=== PATIENT | female | born 1955 | race Caucasian/White ===

== ENCOUNTER → 2016-06-19 | Outpatient (CLI) | payer BC, OTHER ==
--- NOTE | 2016-06-19 14:22 | XR ---
EXAMINATION TYPE: XR wrist complete BILATERAL DATE OF EXAM: 06/19/2016 2:14 PM COMPARISON: NONE HISTORY: Palpable abnormality TECHNIQUE: Four views submitted of each wrist. FINDINGS: The osseous structures are intact. The joint spaces are preserved and there is no acute fracture or dislocation. Sclerosis involving the base of the lunate bone on the left. IMPRESSION: 1. No definite acute osseous abnormality. There is sclerosis involving the base of the left lunate b one. This can occasionally be seen with arthritic change or early osteonecrosis. Correlate clinically .
--- NOTE | 2016-06-19 15:22 | MR ---
EXAMINATION TYPE: MR lumbar spine wo con DATE OF EXAM: 06/19/2016 3:14 PM COMPARISON: 12/07/2015 HISTORY: 61-year-old female with left Hip and Lumbar Pain TECHNIQUE: Multiplanar, multisequence images of the lumbar spine were acquired. FINDINGS: Vertebral body heights are preserved and alignment is maintained. No suspicious bone marrow replacement. Conus medullaris is normal. Numerous calculi within a nondistended gallbladder. Intervertebral discs are degenerated with mild desiccation, minimal disc interspace narrowing, and bu lging throughout. Ligamentum flavum thickening and facet arthropathy mid to lower lumbar spine. At T12-L1, no spinal canal or neuroforaminal stenosis. At L1-L2, no spinal canal or foraminal stenosis. At L2-L3, very mild disc bulge and facet degenerative change. Minimal bilateral inferior foraminal na rrowing without spinal canal stenosis. At L3-L4, mild facet degenerative change and mild lateral disc bulging. Minimal bilateral inferior ne uroforaminal narrowing without spinal canal stenosis. At L4-L5, mild diffuse disc bulge with ligamentum flavum thickening and facet arthropathy. While ther e is impression on the thecal sac, no significant spinal canal stenosis is seen. There is mild bilate ral neuroforaminal stenosis not significantly changed from prior. At L5-S1, is disc bulge with hypertrophic facet arthropathy, particularly on the left. No significant spinal canal stenosis. Mild bilateral neuroforaminal stenoses. Disc material may abut the exiting L5 nerve roots, particularly on the right. These changes are not significantly changed. No prevertebral or paravertebral soft tissue abnormality. IMPRESSION: 1. Mild to moderate multilevel degenerative disc disease. Additional ligamentum flavum thickening and facet arthropathy in the mid to lower lumbar spine. Asymmetric marked hypertrophic left-sided facet arthropathy at L5-S1. Overall changes are relatively similar to 12/07/2015. 2. Mild bilateral neuroforaminal stenoses at L4-L5 and L5-S1. 3. No canal compromise. 4. Cholelithiasis.
== END | disposition home or self-care (01) ==
LOC: RADMRIMAIN 13:57
PROVIDERS: ATTEND Psychiatry & Neurology Pain Medicine
DX: M89.8X8 Other specified disorders of bone, other site (principal); M51.36 Other intervertebral disc degeneration, lumbar region; M99.73 Connective tissue and disc stenosis of intervertebral foramina of lumbar region; M99.74 Connective tissue and disc stenosis of intervertebral foramina of sacral region; M46.97 Unspecified inflammatory spondylopathy, lumbosacral region; M24.28 Disorder of ligament, vertebrae; M54.5 Low back pain
CPT/HCPCS: 72148

== ENCOUNTER → 2016-09-16 | Outpatient (CLI) | payer BC, OTHER ==
[2016-09-16 13:14] LABS: Blood Urea Nitrogen 15 mg/dL (7-17); Non-African American GFR(MDRD) >60 (>60 ml/min/1.73 sqM)
== END | disposition home or self-care (01) ==
LOC: LABWHC1 12:05
PROVIDERS: ATTEND Psychiatry & Neurology Pain Medicine
DX: R51 Headache (principal)
CPT/HCPCS: 36415; 82565; 84520

== ENCOUNTER → 2016-09-17 | Outpatient (CLI) | payer BC, OTHER ==
--- NOTE | 2016-09-17 09:36 | MR ---
EXAMINATION TYPE: MR brain wo/w con DATE OF EXAM: 09/17/2016 COMPARISON: NONE HISTORY: Headaches TECHNIQUE: Multiplanar, multisequence images of the brain and brainstem is performed without and with IV contras t, utilizing 15 mL intravenous MultiHance . FINDINGS: Diffusion weighted images demonstrate no evidence of a recent infarct or other diffusion ab normality. Her graft and signal note made of a venous angioma in the right frontal lobe. There are ch anges of chronic sinusitis. Craniocervical junction maintained. Sella turcica has a normal appearance. Changes of chronic left ma stoiditis. Cystic changes involving the tip of the odontoid noted are stable from MRI of the cervical spine dated 12/02/2013. WHITE MATTER: There are a few scattered areas of abnormal signal in the white matter totaling a number of 25. All m easure less than 5 mm. No enhancing lesions. No lesions perpendicular ventricular system. No callosal lesions. IMPRESSION: 1. Nonspecific white matter changes as discussed above. Differential diagnosis includes remote microv ascular ischemia and demyelinating process. Lyme's disease, hypertension, sarcoidosis or vasculitis a lso in the differential diagnosis. 2. Chronic sinusitis and mastoiditis as discussed above.
== END | disposition home or self-care (01) ==
LOC: RADMRIMAIN 08:09
PROVIDERS: ATTEND Psychiatry & Neurology Pain Medicine
DX: R90.89 Other abnormal findings on diagnostic imaging of central nervous system (principal); R51 Headache
CPT/HCPCS: 70553; A9577

== ENCOUNTER → 2017-04-24 | Outpatient (CLI) | payer OTHER ==
--- NOTE | 2017-04-27 10:55 | MM ---
Reason for exam: screening (asymptomatic). History: Patient is postmenopausal and history of other cancer. Family history of breast cancer in aunt. Benign excisional biopsy of the right breast, 1996. Physical Findings: A clinical breast exam by your physician is recommended on an annual basis and results should be correlated with mammographic findings. MG 3D Screening Mammo W/Cad Bilateral CC and MLO view(s) were taken. No prior studies available for comparison. Focal asymmetry left anterior upper outer quadrant. ASSESSMENT: Incomplete: need additional imaging evaluation, BI-RAD 0 RECOMMENDATION: Ultrasound of the left breast. [facility] will attempt to contact patient to return for ultrasound.
== END ==
LOC: RADMAMWWP 10:39
PROVIDERS: ATTEND Family Medicine
DX: Z12.31 Encounter for screening mammogram for malignant neoplasm of breast (principal)
CPT/HCPCS: 77063; 77067

== ENCOUNTER → 2017-05-05 | Outpatient (CLI) | payer OTHER ==
--- NOTE | 2017-05-05 09:05 | USB ---
Reason for exam: additional evaluation requested from abnormal screening. History: Patient is postmenopausal and history of other cancer. Family history of breast cancer in aunt. Benign excisional biopsy of the right breast, 1996. Physical Findings: Nurse Summary: left breast larger than right per patient "recently noticed" (nurse cw). US Breast Workup Limited LT Left breast ultrasound demonstrates no cystic or solid lesion seen. No sonographic abnormality, follow up in 6 months, left diagnostic mammogram recommended regarding left focal asymmetry. These results were verbally communicated with the patient and result sheet given to the patient on 05/05/17. ASSESSMENT: Probably benign, BI-RAD 3 RECOMMENDATION: Follow-up diagnostic mammogram of the left breast in 6 months.
== END | disposition home or self-care (01) ==
LOC: RADUSWWP 08:02
PROVIDERS: ATTEND Family Medicine
DX: R92.8 Other abnormal and inconclusive findings on diagnostic imaging of breast (principal)

== ENCOUNTER → 2017-12-03 | Outpatient (CLI) | payer OTHER ==
--- NOTE | 2017-12-03 12:28 | MM ---
Reason for exam: follow-up at short interval from prior study. Last mammogram was performed 7 months ago. History: Patient is postmenopausal and history of other cancer. Family history of breast cancer in aunt. Benign excisional biopsy of the right breast, 1996. Physical Findings: Nurse did not find any significant physical abnormalities on exam. MG 3D Diag Mammo W/Cad ANITRA Bilateral CC and MLO view(s) were taken. Prior study comparison: April 24, 2017, bilateral MG 3d screening mammo w/cad. The breast tissue is heterogeneously dense. This may lower the sensitivity of mammography. Stable dense tissue superior anterior left breast. Additional short interval follow up recommended. No significant change in the right breast. This can be used as the patients new annual date. These results were verbally communicated with the patient and result sheet given to the patient on 12/03/17. ASSESSMENT: Probably benign, BI-RAD 3 RECOMMENDATION: Follow-up diagnostic mammogram of the left breast in 6 months.
== END | disposition home or self-care (01) ==
LOC: RADMAMWWP 10:34
PROVIDERS: ATTEND Family Medicine
DX: R92.8 Other abnormal and inconclusive findings on diagnostic imaging of breast (principal)
CPT/HCPCS: 77066; G0279; 77062

== ENCOUNTER → 2017-12-25 | Outpatient (CLI) | payer OTHER ==
[2017-12-25 10:41] LABS: Albumin 4.2 g/dL (3.5-5.0); Calcium 9.5 mg/dL (8.4-10.2); Total Bilirubin 0.6 mg/dL (0.2-1.3); Total Protein 7.2 g/dL (6.3-8.2)
[2017-12-25 11:21] LABS: Appearance,Urine Clear (Clear); Bilirubin,Urine Negative (Negative); Blood,Urine Negative (Negative); Color,Urine Yellow; Creatinine,Urine Random 192.6 mg/dL; Glucose,Urine (UA) Negative (Negative); Ketones,Urine Negative (Negative); Leukocyte Esterase,Urine Trace (Negative); Mucus,Urine Rare /hpf; Nitrite,Urine Negative (Negative); Protein,Urine Negative (Negative); Specific Gravity,Urine 1.016 (1.001-1.035); Squamous Epithelial Cell,Urine 3 /hpf (0-4); Urobilinogen,Urine <2.0 mg/dL (<2.0); WBC,Urine 1 /hpf (0-5)
== END | disposition home or self-care (01) ==
LOC: LABWHC1 09:17
PROVIDERS: ATTEND Nurse Practitioner Adult Health
DX: E78.5 Hyperlipidemia, unspecified (principal); N17.9 Acute kidney failure, unspecified; N39.0 Urinary tract infection, site not specified; R80.9 Proteinuria, unspecified
CPT/HCPCS: 36415; 80053; 80061; 81001; 82570; 84156

== ENCOUNTER 2018-02-02 08:50 | Emergency (ER) | payer OTHER ==
--- NOTE | 2018-02-02 09:22 | ED ---
General Adult HPI - General Chief complaint: Fall Stated complaint: head injury Time Seen by Provider: 02/02/18 09:11 Source: patient, RN notes reviewed Mode of arrival: ambulatory Limitations: no limitations - History of Present Illness Initial comments: Patient 62-year-old female presenting to the emergency room today with a chief complaint of a fall that occurred just prior to arrival. She states she was letting her dog out this morning when she tripped on something falling forward. She states she did get her hand out to try to catch herself. She does admit that she is having pain to left side of her head. States she did hit there is a small cut and bruising. Patient states she does not believe she lost consciousness. She states she is on a baby aspirin. No other blood thinners. Patient does admit to history of chronic neck and back pain. Does admit that the neck seems to be worse after this fall. States back feels the same. States she did bruise up her left knee but it feels fine otherwise. She denies any other complaints or symptoms currently. Patient denies any recent fever, chills, shortness of breath, chest pain, abdominal pain, nausea or vomiting, numbness or tingling, visual changes, or any other complaints. - Related Data Home Medications Medication Instructions Recorded Confirmed Pravastatin Sodium [Pravachol] 20 mg PO HS 06/05/14 10/15/15 Sertraline [Zoloft] 125 mg PO DAILY 06/05/14 10/15/15 Ascorbic Acid [Vitamin C] 250 mg PO DAILY 06/07/14 10/15/15 Citracal+D3 (400-500) 1 tab PO DAILY 06/07/14 10/15/15 Hair/Skin/Nails 1 cap PO DAILY 06/07/14 10/15/15 Vitamin E (Dl,Tocopheryl Acet) 400 unit PO DAILY 06/07/14 10/15/15 [Vitamin E] Aspirin EC [Ecotrin Low Dose] 81 mg PO DAILY 09/19/15 10/15/15 Cyclobenzaprine [Flexeril] 10 mg PO TID PRN 09/19/15 10/15/15 Fexofenadine HCl [Rolanda Allergy] 180 mg PO DAILY PRN 09/19/15 10/15/15 Ubidecarenone [Co Q-10] 200 mg PO DAILY 09/19/15 10/15/15 oxyCODONE HCL/ACETAMINOPHEN 1 tab PO BID 09/19/15 10/15/15 [Percocet 7.5-325 mg] Krill Oil 350 mg PO DAILY 10/08/15 10/15/15 Metoprolol Tartrate [Lopressor] 12.5 mg PO BID 10/08/15 10/15/15 Allergies Allergy/AdvReac Type Severity Reaction Status Date / Time NSAIDS (Non-Steroidal AdvReac PROBLEMS Verified 10/08/15 12:18 Anti-Inflamma URINATING Review of Systems ROS Statement: Those systems with pertinent positive or pertinent negative responses have been documented in the HPI. ROS Other: All systems not noted in ROS Statement are negative. Past Medical History Past Medical History: Cancer, Chest Pain / Angina, Eye Disorder, Hyperlipidemia , Musculoskeletal Disorder Additional Past Medical History / Comment(s): PM SINCE 2006. LUMBAR, CERVICAL DDD. PALPITATIONS. 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 MIGRAINES. VARICOSE VEINS. History of Any Multi-Drug Resistant Organisms: None Reported Past Surgical History: Orthopedic Surgery Additional Past Surgical History / Comment(s): Biopsy for Lymphoma. Vaginal Polyp EXC. Rt Shoulder sx x2, Rt Knee Arthroscopy, ORIF RT Ankle-has plate/ screws. Past Anesthesia/Blood Transfusion Reactions: No Reported Reaction Past Psychological History: Anxiety Smoking Status: Current every day smoker Past Alcohol Use History: None Reported Past Drug Use History: None Reported - Past Family History Mother Family Medical History: COPD, Coronary Artery Disease (CAD), Myocardial Infarction (VT), Seizure Disorder Father Family Medical History: Coronary Artery Disease (CAD), Seizure Disorder General Exam - General Exam Comments Initial Comments: General: The patient is awake and alert. Patient currently in cervical collar. Eye: Pupils are equal, round and reactive to light, extra-ocular movements are intact. No nystagmus. There is normal conjunctiva bilaterally. No signs of icterus. Ears, nose, mouth and throat: There are moist mucous membranes and no oral lesions. Neck: The neck is supple, there is no tenderness or JVD. Cardiovascular: There is a regular rate and rhythm. No murmur, rub or gallop is appreciated. Respiratory: Lungs are clear to auscultation, respirations are non-labored, breath sounds are equal. No wheezes, stridor, rales, or rhonchi. Musculoskeletal: Normal ROM, no tenderness. Strength 5/5. Sensation intact. Pulses equal bilaterally 2+. Neurological: A&O x 3. CN II-XII intact, There are no obvious motor or sensory deficits. Coordination appears grossly intact. Speech is normal. Skin: Superficial laceration measuring less than a half centimeter to the left side just above the eyebrow. No active bleeding. Patient does have a little abrasion to the anterior left knee and palms of the right hand. Psychiatric: Cooperative, appropriate mood & affect, normal judgment. Limitations: no limitations Course Vital Signs 02/02/18 08:53 Temperature 98 F Pulse Rate 77 Respiratory 18 Rate Blood Pressure 109/70 O2 Sat by Pulse 100 Oximetry Medical Decision Making - Medical Decision Making CT of the head and neck reviewed and is negative for any acute abnormalities. Results were discussed with the patient. Signs and symptoms of concussion were discussed in detail. Patient is advised to return to emergency room symptoms increase or worsen. Advised follow family doctor over the next 2 days. Disposition Clinical Impression: Fall, Concussion Disposition: HOME SELF-CARE Condition: Good Instructions: Concussion (ED) Additional Instructions: Please use medication as discussed. Please follow-up with family doctor in the next 2 days of symptoms have not improved. Please return to emergency room if the symptoms increase or worsen or for any other concerns. Is patient prescribed a controlled substance at d/c from ED?: No Referrals: Frank Weller MD [Primary Care Provider] - 1-2 days Time of Disposition: 10:17
--- NOTE | 2018-02-02 09:54 | CT ---
EXAMINATION TYPE: CT brain [place] DATE OF EXAM: 02/02/2018 COMPARISON: None HISTORY: Trip and fall, Lt sided head pain, neck pain CT DLP: [address] of the brain was performed. The ventricles, basal cisterns and sulci overlying the cerebral convexities demonstrate mild enlargem ent. There is no evidence for intracranial hemorrhage or sulcal effacement. There is decreased attenuatio n about the periventricular white matter and deep white matter of both cerebral hemispheres, compatib le with chronic small vessel ischemia. No mass effects are seen. If symptoms persist consider MRI. Osseous calvarium is intact. Left frontal scalp contusion. IMPRESSION: 1. Age related atrophic and chronic small vessel ischemic change without acute intracranial process seen at this time. CT Cervical Spine: Unenhanced CT of the cervical spine was performed with bone and soft tissue window settings submitted . Coronal and sagittal reconstruction is obtained. There is normal alignment and prevertebral soft tissues. No evidence for acute cervical fracture . Scattered degenerative disc disease and spondylosis. Biapical scarring. IMPRESSION: 1. No evidence for acute fracture or subluxation of the cervical spine.
[2018-02-02 10:39] VITALS: BP 106/57; PULSE 69; RESP 16; TEMP 98.3
== END 2018-02-02 10:20 | disposition home or self-care (01) ==
LOC: EC 08:50
DX: S06.0X0A Concussion without loss of consciousness, initial encounter (principal); E78.5 Hyperlipidemia, unspecified; F41.9 Anxiety disorder, unspecified; F17.200 Nicotine dependence, unspecified, uncomplicated; Z85.72 Personal history of non-Hodgkin lymphomas; Z79.82 Long term (current) use of aspirin; Z79.891 Long term (current) use of opiate analgesic; Z79.899 Other long term (current) drug therapy; Z88.6 Allergy status to analgesic agent; W01.0XXA Fall on same level from slipping, tripping and stumbling without subsequent striking against object, initial encounter; Y92.009 Unspecified place in unspecified non-institutional (private) residence as the place of occurrence of the external cause
CPT/HCPCS: 70450; 72125; 99283

== ENCOUNTER → 2018-04-02 | Outpatient (CLI) | payer OTHER ==
[2018-04-02 22:39] LABS: Albumin 4.8 g/dL (3.80-4.90); Albumin/Globulin Ratio 1.85 (1.20-2.10); Anion Gap 8.8 mmol/L (4.00-12.00); Calcium 9.4 mg/dL (8.7-10.3); Carbon Dioxide 27.2 mmol/L (21.6-31.8); Globulin 2.6 g/dL (1.6-3.3); Potassium 3.9 mmol/L (3.5-5.5); Total Bilirubin 0.3 mg/dL (0.3-1.2); Total Protein 7.4 g/dL (6.2-8.2)
== END | disposition home or self-care (01) ==
LOC: LABWHC1 15:44
PROVIDERS: ATTEND Family Medicine
DX: J30.9 Allergic rhinitis, unspecified (principal)
CPT/HCPCS: 36415; 80053

== ENCOUNTER → 2018-06-08 | Outpatient (CLI) | payer OTHER ==
--- NOTE | 2018-06-08 10:35 | MM ---
Reason for exam: follow-up at short interval from prior study. Last mammogram was performed 6 months ago. History: Patient is postmenopausal and history of other cancer. Family history of breast cancer in aunt. Benign excisional biopsy of the right breast, 1996. Physical Findings: Nurse did not find any significant physical abnormalities on exam. MG 3D Diag Mammo W/Cad LT CC and MLO view(s) were taken of the left breast. Prior study comparison: December 03, 2017, bilateral MG 3d diag mammo w/cad ANITRA. April 24, 2017, bilateral MG 3d screening mammo w/cad. The breast tissue is heterogeneously dense. This may lower the sensitivity of mammography. These results were verbally communicated with the patient and result sheet given to the patient on 06/08/18. ASSESSMENT: Benign, BI-RAD 2 RECOMMENDATION: Routine screening mammogram of both breasts in 6 months. Back on schedule.
== END | disposition home or self-care (01) ==
LOC: RADMAMWWP 09:23
PROVIDERS: ATTEND Family Medicine
DX: R92.8 Other abnormal and inconclusive findings on diagnostic imaging of breast (principal)
CPT/HCPCS: 77065; G0279; 77061

== ENCOUNTER → 2018-10-06 | Outpatient (CLI) | payer OTHER ==
[2018-10-06 13:07] LABS: Basophils % (A) 1 %; Eosinophils # (A) 0.2 k/uL (0-0.7); Eosinophils % (A) 3 %; HCT 44.2 % (34.0-46.0); HGB 14.1 gm/dL (11.4-16.0); Lymphocytes # (A) 1.5 k/uL (1.0-4.8); Lymphocytes % (A) 24 %; MCH 29.5 pg (25.0-35.0); MCHC 31.8 g/dL (31.0-37.0); MCV 92.7 fL (80.0-100.0); Mean Platelet Volume 6.5; Monocytes # (A) 0.3 k/uL (0-1.0); Monocytes % (A) 4 %; Neutrophils # (A) 4.1 k/uL (1.3-7.7); Neutrophils % (A) 67 %; Platelet Count 185 k/uL (150-450); RBC 4.77 m/uL (3.80-5.40); RDW 13.3 % (11.5-15.5); WBC 6.1 k/uL (3.8-10.6)
[2018-10-06 20:34] LABS: African American GFR (CKD) 68.9 (60.0-200.0); Albumin 4.3 g/dL (3.80-4.90); Albumin/Globulin Ratio 1.87 (1.60-3.17); Anion Gap 9.8 mmol/L (4.00-12.00); Calcium 9.1 mg/dL (8.7-10.3); Carbon Dioxide 24.2 mmol/L (21.6-31.8); Globulin 2.3 g/dL (1.6-3.3); Non-African American GFR(CKD) 59.5 (60.0-200.0); Potassium 4.1 mmol/L (3.5-5.5); Total Bilirubin 0.4 mg/dL (0.2-1.2); Total Protein 6.6 g/dL (6.2-8.2)
== END | disposition home or self-care (01) ==
LOC: LABWHC1 12:30
PROVIDERS: ATTEND Family Medicine
DX: E78.5 Hyperlipidemia, unspecified (principal)
CPT/HCPCS: 36415; 80053; 85025

== ENCOUNTER 2018-10-25 11:08 | Inpatient (IN) | payer OTHER ==
[2018-10-25] MEDS ORDERED: SODIUM CHLORIDE 0.9% 500 ML 500 ML IV STA (11:47)
[2018-10-25] MEDS ORDERED: MORPHINE SULFATE 4 MG/ML SYRINGE IVP STA (12:00)
[2018-10-25 12:08] LABS: Basophils # (A) 0.1 k/uL (0-0.2); Basophils % (A) 1 %; Eosinophils # (A) 0.2 k/uL (0-0.7); Eosinophils % (A) 3 %; HGB 13.1 gm/dL (11.4-16.0); Lymphocytes % (A) 19 %; MCH 30.2 pg (25.0-35.0); MCHC 32.7 g/dL (31.0-37.0); MCV 92.5 fL (80.0-100.0); Mean Platelet Volume 7.1; Monocytes # (A) 0.3 k/uL (0-1.0); Monocytes % (A) 6 %; Neutrophils # (A) 3.8 k/uL (1.3-7.7); Neutrophils % (A) 70 %; Platelet Count 227 k/uL (150-450); RBC 4.33 m/uL (3.80-5.40); RDW 14.7 % (11.5-15.5); WBC 5.4 k/uL (3.8-10.6)
[2018-10-25 12:10] LABS: Appearance,Urine Clear (Clear); Bilirubin,Urine Negative (Negative); Blood,Urine Negative (Negative); Color,Urine Yellow; Glucose,Urine (UA) Negative (Negative); Ketones,Urine Negative (Negative); Leukocyte Esterase,Urine Negative (Negative); Nitrite,Urine Negative (Negative); PH, Urine 6.5 (5.0-8.0); Protein,Urine Trace (Negative); Specific Gravity,Urine 1.014 (1.001-1.035)
[2018-10-25 12:19] LABS: ALT 28 U/L (9-52); AST 61 U/L (14-36); African American GFR (CKD) >90 (>60 ml/min/1.73 sqM); Albumin 3.9 g/dL (3.5-5.0); Alkaline Phosphatase 111 U/L (38-126); Amylase 37 U/L (30-110); Anion Gap 9 mmol/L; Blood Urea Nitrogen 9 mg/dL (7-17); Carbon Dioxide 25 mmol/L (22-30); Chloride 106 mmol/L (98-107); Glucose 139 mg/dL (74-99); Potassium 4.2 mmol/L (3.5-5.1); Sodium 140 mmol/L (137-145); Total Protein 7.1 g/dL (6.3-8.2)
--- NOTE | 2018-10-25 13:31 | CT ---
EXAMINATION TYPE: CT abdomen pelvis w con DATE OF EXAM: 10/25/2018 COMPARISON: None INDICATION: Right lower quadrant pain DLP: 706.7 mGycm, Automated exposure control for dose reduction was used. CONTRAST: 100 mL of Isovue 300. Study performed without Oral Contrast TECHNIQUE: Axial images were obtained from above the diaphragm to the pubic rami in the axial plane a t 5 mm thick sections. Reconstructed images are reviewed on the computer in the coronal plane. FINDINGS: Limited CT sections are obtained the lung bases. The lung bases are clear. CT ABDOMEN: Liver: Normal Spleen: Normal Pancreas: Normal Adrenal glands: The adrenal glands are normal. Gallbladder: Gallstones and sludge are present. Kidneys: No masses are evident. No hydronephrosis is present. No cysts are present. Delayed images were obtained through the kidneys, which remain unremarkable. Aorta: Vascular calcification is within the aorta. Inferior vena cava: Normal. CT PELVIS: There are some inflammatory changes adjacent to the ascending colon. Significant wall thickening is n ot identified. Just inferior to the cecum is a low-density collection measuring 4.3 x 3.7 cm. Versus slightly hypode nse within the center suspicious for an abscess. This is adjacent to the left iliac vein. Hematoma co uld be considered but may be less likely. There appears to be some enlarged adenopathy adjacent. The appendix is medial and slightly inferior to this structure does not appear to be involved. Diverticul ar changes are within the sigmoid colon. Bowel lack oral contrast limiting their evaluation. Appendix: Normal as visualized. Urinary bladder: Normal. Genitourinary structures: Uterus is normal. Adnexal regions are clear. Osseous structures: No suspicious lytic or sclerotic lesions. Facet degenerative changes are present. IMPRESSIONS: 1. Low-density collection right anterior iliac region suspicious for abscess likely from the cecum. The appendix however appears within normal limits. Some illiac lymphadenopathy may be in this region. 2. Cholelithiasis and sludge within the gallbladder.
[2018-10-25] MEDS ORDERED: PIPERACILLIN-TAZOBACTAM 3.375 GM in SODIUM CHLORIDE 0.9% 100 ML IVPB STA (13:58)
--- NOTE | 2018-10-25 14:30 | ED ---
General Adult HPI - General Source: patient Mode of arrival: ambulatory Limitations: no limitations <Keven Toure - Last Filed: 10/25/18 14:30> - General Source: patient, RN notes reviewed Mode of arrival: ambulatory Limitations: no limitations <Anthony Cartagena - Last Filed: 10/25/18 15:10> - General Chief complaint: Abdominal Pain Stated complaint: abdominal pain Time Seen by Provider: 10/25/18 11:39 - History of Present Illness Initial comments: 63-year-old female presents to the emergency department for a chief complaint of right lower quadrant pain. Patient states this has been ongoing for about one week. States she thought she was constipated and had gas so she was trying to have a bowel movement however the pain is worsening. Denies nausea or vomiting. States she is having small bowel movements and is passing gas. Denies fevers or chills. Denies any previous abdominal surgeries. Denies any left lower quadrant pain. Denies history of diverticulitis.Patient has no other complaints at this time including shortness of breath, chest pain, nausea or vomiting, headache, or visual changes. (Anthony Cartagena) - Related Data Home Medications Medication Instructions Recorded Confirmed Sertraline [Zoloft] 150 mg PO DAILY 06/05/14 10/25/18 Ascorbic Acid [Vitamin C] 500 mg PO DAILY 06/07/14 10/25/18 Vitamin E (Dl,Tocopheryl Acet) 400 unit PO DAILY 06/07/14 10/25/18 [Vitamin E] Aspirin EC [Ecotrin Low Dose] 81 mg PO DAILY 09/19/15 10/25/18 Metoprolol Tartrate [Lopressor] 25 mg PO BID 10/08/15 10/25/18 Amitriptyline HCl [Elavil] 25 mg PO HS 10/25/18 10/25/18 Biotin 5 mg PO DAILY 10/25/18 10/25/18 Calcium Carbonate [Calcium] 600 mg PO DAILY 10/25/18 10/25/18 HYDROcodone/APAP 7.5-325MG [[place] 0.5 - 1 tab PO TID PRN 10/25/18 10/25/18 7.5-325] Magnesium 200 mg PO DAILY 10/25/18 10/25/18 Melatonin 20 mg PO HS 10/25/18 10/25/18 Simvastatin [Zocor] 40 mg PO HS 10/25/18 10/25/18 Vitamin C/Biotin [Hair, Skin and 1 tab PO DAILY 10/25/18 10/25/18 Nails] clonazePAM [KlonoPIN] 0.25 mg PO HS 10/25/18 10/25/18 Allergies Allergy/AdvReac Type Severity Reaction Status Date / Time NSAIDS (Non-Steroidal AdvReac PROBLEMS Verified 10/25/18 11:31 Anti-Inflamma URINATING Review of Systems ROS Other: All systems not noted in ROS Statement are negative. <Keven Toure - Last Filed: 10/25/18 14:30> ROS Other: All systems not noted in ROS Statement are negative. <Anthony Cartagena - Last Filed: 10/25/18 15:10> ROS Statement: Those systems with pertinent positive or pertinent negative responses have been documented in the HPI. Past Medical History Past Medical History: Cancer, Chest Pain / Angina, Eye Disorder, Hyperlipidemia, Musculoskeletal Disorder Additional Past Medical History / Comment(s): PM SINCE 2006. LUMBAR, CERVICAL DDD. PALPITATIONS. 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 MIGRAINES. VARICOSE VEINS. History of Any Multi-Drug Resistant Organisms: None Reported Past Surgical History: Orthopedic Surgery Additional Past Surgical History / Comment(s): Biopsy for Lymphoma. Vaginal Polyp EXC. Rt Shoulder sx x2, Rt Knee Arthroscopy, ORIF RT Ankle-has plate/screws. Past Anesthesia/Blood Transfusion Reactions: No Reported Reaction Past Psychological History: Anxiety Smoking Status: Current every day smoker Past Alcohol Use History: None Reported Past Drug Use History: None Reported - Past Family History Mother Family Medical History: COPD, Coronary Artery Disease (CAD), Myocardial Infarction ([place]), Seizure Disorder Father Family Medical History: Coronary Artery Disease (CAD), Seizure Disorder <Keven Toure - Last Filed: 10/25/18 14:30> General Exam Limitations: no limitations <Keven Toure - Last Filed: 10/25/18 14:30> General appearance: alert, in no apparent distress Head exam: Present: atraumatic, normocephalic, normal inspection Eye exam: Present: normal appearance, PERRL, EOMI. Absent: scleral icterus, conjunctival injection, periorbital swelling ENT exam: Present: normal exam, mucous membranes moist Neck exam: Present: normal inspection, full ROM. Absent: tenderness, meningismus, lymphadenopathy Respiratory exam: Present: normal lung sounds bilaterally. Absent: respiratory distress, wheezes, rales, rhonchi, stridor Cardiovascular Exam: Present: regular rate, normal rhythm, normal heart sounds. Absent: systolic murmur, diastolic murmur, rubs, gallop, clicks GI/Abdominal exam: Present: soft, tenderness (tenderness of the right lower quadrant. Positive Rovsing sign. No rebound or guarding.), normal bowel s ounds. Absent: distended, guarding, rebound, rigid Back exam: Absent: CVA tenderness (R) Neurological exam: Present: alert Psychiatric exam: Present: normal affect, normal mood <Anthony Cartagena - Last Filed: 10/25/18 15:10> Course Vital Signs 10/25/18 11:11 Temperature 98.0 F Pulse Rate 83 Respiratory 18 Rate Blood Pressure 108/52 O2 Sat by Pulse 100 Oximetry Medical Decision Making - Lab Data Result diagrams: 10/25/18 11:40 10/25/18 11:40 <Keven Toure - Last Filed: 10/25/18 14:30> - Lab Data Result diagrams: 10/25/18 11:40 10/25/18 11:40 <Anthony Cartagena - Last Filed: 10/25/18 15:10> - Medical Decision Making 63-year-old female with a past medical history of non-Hodgkin's lymphoma, hyperlipidemia, musculoskeletal disorder presents to the emergency department for a chief complaint of right lower abdominal pain. This has been ongoing for about a week. On exam patient does have right lower quadrant tenderness with a positive Rovsing sign. Vitals are stable. Patient is afebrile. CBC and CMP unremarkable. Urine negative. CT abdomen and pelvis showed a low-density collection right anterior iliac region suspicious for abscess likely from the cecum. Appendix appears normal. There is also cholelithiasis with sludge noted. Given abscess of cecum patient was started on Zosyn. Dr. Toure spoke with Dr. Brush who will accept this admission. (Anthony Cartagena) - Lab Data Lab Results 10/25/18 10/25/18 10/25/18 Range/Units 11:40 11:40 11:40 WBC 5.4 (3.8-10.6) k/uL RBC 4.33 (3.80-5.40) m/uL Hgb 13.1 (11.4-16.0) gm/dL Hct 40.0 (34.0-46.0) % MCV 92.5 (80.0-100.0) fL MCH 30.2 (25.0-35.0) pg MCHC 32.7 (31.0-37.0) g/dL RDW 14.7 (11.5-15.5) % Plt Count 227 (150-450) k/uL Neutrophils % 70 % Lymphocytes % 19 % Monocytes % 6 % Eosinophils % 3 % Basophils % 1 % Neutrophils # 3.8 (1.3-7.7) k/uL Lymphocytes # 1.0 (1.0-4.8) k/uL Monocytes # 0.3 (0-1.0) k/uL Eosinophils # 0.2 (0-0.7) k/uL Basophils # 0.1 (0-0.2) k/uL Sodium 140 (137-145) mmol/L Potassium 4.2 (3.5-5.1) mmol/L Chloride 106 (98-107) mmol/L Carbon Dioxide 25 (22-30) mmol/L Anion Gap 9 mmol/L BUN 9 (7-17) mg/dL Creatinine 0.65 (0.52-1.04) mg/dL Est GFR (CKD-EPI)AfAm >90 (>60 ml/min/1.73 sqM) Est GFR (CKD-EPI)NonAf >90 (>60 ml/min/1.73 sqM) Glucose 139 H (74-99) mg/dL Calcium 9.0 (8.4-10.2) mg/dL Total Bilirubin 1.0 (0.2-1.3) mg/dL AST 61 H (14-36) U/L ALT 28 (9-52) U/L Alkaline Phosphatase 111 (38-126) U/L Total Protein 7.1 (6.3-8.2) g/dL Albumin 3.9 (3.5-5.0) g/dL Amylase 37 (30-110) U/L Lipase 65 (23-300) U/L Urine Color Yellow Urine Appearance Clear (Clear) Urine pH 6.5 (5.0-8.0) Ur Specific Straughn 1.014 (1.001-1.035) Urine Protein Trace H (Negative) Urine Glucose (UA) Negative (Negative) Urine Ketones Negative (Negative) Urine Blood Negative (Negative) Urine Nitrite Negative (Negative) Urine Bilirubin Negative (Negative) Urine Urobilinogen 4.0 (<2.0) mg/dL Ur Leukocyte Esterase Negative (Negative) Disposition <Keven Toure - Last Filed: 10/25/18 14:30> Time of Disposition: 15:10 <Anthony Cartagena - Last Filed: 10/25/18 15:10> Clinical Impression: Intra-abdominal abscess Disposition: ADMITTED IP TO THIS HOSP Condition: Fair Referrals: Frank Weller MD [Primary Care Provider] - 1-2 days
[2018-10-25] MEDS ORDERED: ONDANSETRON 4 MG/2 ML VIAL IVP PRN (15:10)
[2018-10-25] MEDS ORDERED: NALOXONE 0.4 MG/ML 1 ML VIAL IV PRN (15:10)
[2018-10-25] MEDS: SODIUM CHLORIDE 0.9% 1,000 ML IV SCH ×3 (16:03→23:40)
[2018-10-25] MEDS: MORPHINE SULFATE 4 MG/ML SYRINGE IV PRN ×2 (16:35→22:19)
[2018-10-25 17:14] VITALS: BMI 24.7
[2018-10-25] MEDS: clonazePAM 0.5 MG TAB PO SCH (22:21)
[2018-10-25] MEDS: METOPROLOL TARTRATE 25 MG TAB PO SCH (22:22)
[2018-10-25] MEDS: ATORVASTATIN 20 MG TAB PO SCH (22:22)
[2018-10-25] MEDS: AMITRIPTYLINE HCL 25 MG TAB PO SCH (22:22)
[2018-10-25] MEDS: PIPERACILLIN-TAZOBACTAM 3.375 GM in SODIUM CHLORIDE 0.9% 100 ML IVPB SCH (23:40)
[2018-10-26] MEDS: PIPERACILLIN-TAZOBACTAM 3.375 GM in SODIUM CHLORIDE 0.9% 100 ML IVPB SCH ×3 (08:50→23:46)
[2018-10-26] MEDS: METOPROLOL TARTRATE 25 MG TAB PO SCH ×2 (08:51→23:45)
[2018-10-26] MEDS: SERTRALINE 100 MG TAB PO SCH (08:51)
[2018-10-26] MEDS: MAGNESIUM OXIDE 400 MG TAB PO SCH (12:04)
[2018-10-26] MEDS: MORPHINE SULFATE 4 MG/ML SYRINGE IV PRN ×3 (12:16→23:43)
--- NOTE | 2018-10-26 13:41 | P.GSHP ---
History of Present Illness H&P Date: 10/26/18 Chief Complaint: abdominal pain CHIEF COMPLAINT: abdominal pain HISTORY OF PRESENT ILLNESS: 63-year-old female who presented to the emergency room with a chief complaint of abdominal pain. Patient states her abdominal pain started last Thursday. She reports the pain is mostly in the right lower quadrant. She is states she initially thought it was constipation as she experiences constipation due to chronic opioid use due to back pain. She reports taking laxatives without improvement in her abdominal pain. Denies na usea or vomiting. Denies fever or chills. She denies history of diverticulitis. No previous colonoscopy. PAST MEDICAL HISTORY: See list. PAST SURGICAL HISTORY: See list. SOCIAL HISTORY: No illicit drug use. REVIEW OF SYSTEMS: CONSTITUTIONAL: Denies fever or chills. HEENT: Denies blurred vision, vision changes, or eye pain. Denies hemoptysis CARDIOVASCULAR: Denies chest pain or pressure. RESPIRATORY: No shortness of breath. GASTROINTESTINAL: Refer to [facility] for pertinent findings HEMATOLOGIC: Denies bleeding disorders. GENITOURINARY: Denies any blood in urine. SKIN: Denies pruitis. Denies rash. PHYSICAL EXAM: VITAL SIGNS: Reviewed. GENERAL: Well-developed in no acute distress. HEENT: No sclera icterus. Extraocular movements grossly intact. Moist buccal mucosa. Head is atraumatic, normocephalic. ABDOMEN: Soft. Nondistended. Tenderness with palpation to right lower quadrant. Positive bowel sounds. No peritoneal signs. NEUROLOGIC: Alert and oriented. Cranial nerves II through XII grossly intact. LABORATORY DATA: Laboratory data on admission reveals white count 5.4. Hemoglobin 13.1. Sodium 140. Potassium 4.2. BUN 9. Creatinine 0.65. AST 61. ALT 28. IMAGING: CT abdomen and pelvis: Low-density collection right anterior iliac region suspicious for abscess likely from the cecum. The appendix however appears within normal limits. Some iliac lymphadenopathy may be in this region. Cholelithiasis and sludge within the gallbladder. ASSESSMENT: 1. Right lower quadrant abdominal pain 1 week 2. Intra-abdominal abscess, CT reports abscess measuring 4.3 x 3.7 cm near cecum, appendix normal per CT 3. Cholelithiasis and sludge within the gallbladder, no evidence of acute cholecystitis 4. History of constipation secondary to chronic opioid use PLAN: 1. Clear liquid diet 2. Continue antibiotics 3. Consult hospitalist for medical management 4. No surgical intervention recommended at this time. Continue with conservative management Nurse practitioner note has been reviewed by physician. Signing provider agrees with the documented findings, assessment, and plan of care. Past Medical History Past Medical History: Cancer, Chest Pain / Angina, Eye Disorder, Hyperlipidemia, Musculoskeletal Disorder Additional Past Medical History / Comment(s): States nonhodgkins lymphoma diagnosed in 2006. States back deterioration. Palpitations due to atrial fibrillation. Glaucoma, possible start of cataracts stated per patient. History of Any Multi-Drug Resistant Organisms: None Reported Past Surgical History: Orthopedic Surgery Additional Past Surgical History / Comment(s): Biopsy for Lymphoma. Vaginal Polyp removed in 2006. Right Shoulder rotator cuff repair, Right Knee Arthroscopy, ORIF RT Ankle in 2006 -has plate/screws. Past Anesthesia/Blood Transfusion Reactions: No Reported Reaction Past Psychological History: Anxiety Additional Psychological History / Comment(s): pt is independant, lives with spouse. 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 Smoking Status: Current every day smoker Past Alcohol Use History: None Reported Additional Past Alcohol Use History / Comment(s): Started Smoking at age 14, Smokes 1 pack per day. Past Drug Use History: None Reported - Past Family History Mother Family Medical History: COPD, Coronary Artery Disease (CAD), Myocardial Infarction ([place]), Seizure Disorder Father Family Medical History: Coronary Artery Disease (CAD), Seizure Disorder Medications and Allergies Home Medications Medication Instructions Recorded Confirmed Type Sertraline [Zoloft] 150 mg PO DAILY 06/05/14 10/25/18 History Ascorbic Acid [Vitamin C] 500 mg PO DAILY 06/07/14 10/25/18 History Vitamin E (Dl,Tocopheryl Acet) 400 unit PO DAILY 06/07/14 10/25/18 History [Vitamin E] Aspirin EC [Ecotrin Low Dose] 81 mg PO DAILY 09/19/15 10/25/18 History Metoprolol Tartrate [Lopressor] 25 mg PO BID 10/08/15 10/25/18 History Amitriptyline HCl [Elavil] 25 mg PO HS 10/25/18 10/25/18 History Biotin 5 mg PO DAILY 10/25/18 10/25/18 History Calcium Carbonate [Calcium] 600 mg PO DAILY 10/25/18 10/25/18 History HYDROcodone/APAP 7.5-325MG [[place] 0.5 - 1 tab PO TID PRN 10/25/18 10/25/18 History 7.5-325] Magnesium 200 mg PO DAILY 10/25/18 10/25/18 History Melatonin 20 mg PO HS 10/25/18 10/25/18 History Simvastatin [Zocor] 40 mg PO HS 10/25/18 10/25/18 History Vitamin C/Biotin [Hair, Skin and 1 tab PO DAILY 10/25/18 10/25/18 History Nails] clonazePAM [KlonoPIN] 0.25 mg PO HS 10/25/18 10/25/18 History Allergies Allergy/AdvReac Type Severity Reaction Status Date / Time NSAIDS (Non-Steroidal AdvReac PROBLEMS Verified 10/25/18 11:31 Anti-Inflamma URINATING Surgical - Exam Vital Signs Temp Pulse Resp BP Pulse Ox 98.0 F 83 18 108/52 100 10/25/18 11:11 10/25/18 11:11 10/25/18 11:11 10/25/18 11:11 10/25/18 11:11 Results - Labs 10/25/18 11:40 10/25/18 11:40
[2018-10-26] MEDS: SODIUM CHLORIDE 0.9% 1,000 ML IV SCH ×2 (17:09→23:47)
[2018-10-26] MEDS: HEPARIN SODIUM,PORCINE 5,000 UNIT/ML 1 ML VIAL SQ SCH ×2 (17:13→23:44)
[2018-10-26] MEDS: clonazePAM 0.5 MG TAB PO SCH (23:44)
[2018-10-26] MEDS: ATORVASTATIN 20 MG TAB PO SCH (23:45)
[2018-10-26] MEDS: AMITRIPTYLINE HCL 25 MG TAB PO SCH (23:45)
--- NOTE | 2018-10-27 00:18 | P.CONS ---
History of Present Illness - Reason for Consult Consult date: 10/26/18 Medical management - Chief Complaint Abdominal pain - History of Present Illness Patient is a 63-year-old female with a known history of non-Hodgkin's lymphoma diagnosed in 2006, anxiety, osteoarthritis and hyperlipidemia came to ER with complaints of right lower quadrant abdominal pain. Patient has been having sharp pains for the past 1 week. Patient also recently having symptoms of constipation. Patient thought that she may be having appendicitis and came to ER for evaluation. Denied any complaints of fever or chills. No radiation of the pain. Pain is constant otherwise. No complaints of nausea vomiting or diarrhea. No fever no chills. No chest pain or shortness of breath. Patient is able to pass gas but had only small bowel movements. Denied any history of abdominal surgeries or diverticulitis. CT of the abdominal pelvis showed low density collection right anterior iliac region suspicious for abscess likely from the cecum. The appendix however appears within normal limits. Some iliac lymphadenopathy may be in this region. Cholelithiasis and sludge within the gallbladder. Patient has been afebrile and laboratory data reviewed. Review of Systems Constitutional: Patient denies any fever or chills . No generalized weakness or weight loss. Abdomen: Patient denied nausea vomiting and diarrhea. Patient does have co nstipation and right lower quadrant abdominal pain.. Cardiovascular: Patient denies any chest pain or short of breath no palpitations. Respiratory: patient denied any cough is from production. No shortness of breath Neurologic: Patient denied any numbness or tingling headache. Musculoskeletal: Patient denies any complaints of joint swelling or deformity. Skin: Negative Psychiatric: Negative Endocrine: No heat or cold intolerance. No recent weight gain. Genitourinary: No dysuria or hematuria. All other 14 point ROS negative except the above Past Medical History Past Medical History: Cancer, Chest Pain / Angina, Eye Disorder, Hyperlipidemia, Musculoskeletal Disorder Additional Past Medical History / Comment(s): States nonhodgkins lymphoma diagnosed in 2006. States back deterioration. Palpitations due to atrial fibrillation. Glaucoma, possible start of cataracts stated per patient. History of Any Multi-Drug Resistant Organisms: None Reported Past Surgical History: Orthopedic Surgery Additional Past Surgical History / Comment(s): Biopsy for Lymphoma. Vaginal Polyp removed in 2006. Right Shoulder rotator cuff repair, Right Knee Ar throscopy, ORIF RT Ankle in 2006 -has plate/screws. Past Anesthesia/Blood Transfusion Reactions: No Reported Reaction Past Psychological History: Anxiety Additional Psychological History / Comment(s): pt is independant, lives with spouse. 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 Smoking Status: Current every day smoker Past Alcohol Use History: None Reported Additional Past Alcohol Use History / Comment(s): Started Smoking at age 14, Smokes 1 pack per day. Past Drug Use History: None Reported - Past Family History Mother Family Medical History: COPD, Coronary Artery Disease (CAD), Myocardial Infarction ([place]), Seizure Disorder Father Family Medical History: Coronary Artery Disease (CAD), Seizure Disorder Medications and Allergies Home Medications Medication Instructions Recorded Confirmed Type Sertraline [Zoloft] 150 mg PO DAILY 06/05/14 10/25/18 History Ascorbic Acid [Vitamin C] 500 mg PO DAILY 06/07/14 10/25/18 History Vitamin E (Dl,Tocopheryl Acet) 400 unit PO DAILY 06/07/14 10/25/18 History [Vitamin E] Aspirin EC [Ecotrin Low Dose] 81 mg PO DAILY 09/19/15 10/25/18 History Metoprolol Tartrate [Lopressor] 25 mg PO BID 10/08/15 10/25/18 History Amitriptyline HCl [Elavil] 25 mg PO HS 10/25/18 10/25/18 History Biotin 5 mg PO DAILY 10/25/18 10/25/18 History Calcium Carbonate [Calcium] 600 mg PO DAILY 10/25/18 10/25/18 History HYDROcodone/APAP 7.5-325MG [[place] 0.5 - 1 tab PO TID PRN 10/25/18 10/25/18 History 7.5-325] Magnesium 200 mg PO DAILY 10/25/18 10/25/18 History Melatonin 20 mg PO HS 10/25/18 10/25/18 History Simvastatin [Zocor] 40 mg PO HS 10/25/18 10/25/18 History Vitamin C/Biotin [Hair, Skin and 1 tab PO DAILY 10/25/18 10/25/18 History Nails] clonazePAM [KlonoPIN] 0.25 mg PO HS 10/25/18 10/25/18 History Allergies Allergy/AdvReac Type Severity Reaction Status Date / Time NSAIDS (Non-Steroidal AdvReac PROBLEMS Verified 10/25/18 11:31 Anti-Inflamma URINATING Physical Exam Vitals: Vital Signs Temp Pulse Resp BP Pulse Ox 10/26/18 20:12 98.8 F 64 16 107/58 97 10/26/18 14:15 98.4 F 69 16 104/65 98 10/26/18 07:00 98.4 F 75 16 95/61 95 10/26/18 04:11 16 10/26/18 01:05 99.0 F 64 18 95/60 95 10/25/18 23:40 18 Intake and Output 10/26/18 10/26/18 10/26/18 06:59 14:59 22:59 Other: Voiding Method Toilet # Voids 3 PHYSICAL EXAMINATION: Patient is lying in the bed comfortably, no acute distress, awake alert and oriented.. HEENT: Normocephalic. Neck is supple. Pupils reactive. Nostrils clear. Oral cavity is moist. Ears reveal no drainage. Neck reveals no JVD, carotid bruits, or thyromegaly. CHEST EXAMINATION: Trachea is central. Symmetrical expansion. Lung newsome clear to auscultation and percussion. CARDIAC: Normal S1, S2 with no gallops. No murmurs ABDOMEN: Soft. Right lower quadrant tenderness. No guarding or rigidity. Bowel sounds normal. No organomegaly. No abdominal bruits. Extremities: reveal no edema. No clubbing or cyanosis Neurologically awake, alert, oriented x3 with well-coordinated movements. No focal deficits noted Skin: No rash or skin lesions. Psychiatric: Coperative. Nonsuicidal Musculoskeletal: No joint swelling or deformity. Normal range of motion. Results CBC & Chem 7: 10/25/18 11:40 10/25/18 11:40 Assessment and Plan Assessment: Right lower quadrant abdominal pain due to abscess Cecal abscess as per CT abdomen and pelvis. 4.3 x 3.7 cm Cholelithiasis and gallbladder sludge without acute cholecystitis Chronic constipation likely due to opiate use Hyperlipidemia History of non-Hodgkin's lymphoma diagnosed in 2006 Anxiety/depression and palpitations Nicotine addiction currently everyday smoker DVT prophylaxis with heparin subcu Plan: Patient be continued on IV hydration with normal saline. Continue with antibiotics in the form of Zosyn. Otherwise patient still having abdominal discomfort but improving. Follow-up culture reports. May repeat imaging studi es for resolution of abscess. No fever. no leukocytosis. Continue with home medications for anxiety and depression. Smoking cessation was counseled. Gen. surgery recommendations. Will continue to follow closely. Time with Patient: Greater than 30
[2018-10-27 07:12] LABS: Basophils # (A) 0.1 k/uL (0-0.2); Basophils % (A) 1 %; Eosinophils # (A) 0.2 k/uL (0-0.7); Eosinophils % (A) 5 %; HCT 37.1 % (34.0-46.0); HGB 11.6 gm/dL (11.4-16.0); Lymphocytes % (A) 23 %; MCH 29.3 pg (25.0-35.0); MCHC 31.2 g/dL (31.0-37.0); MCV 93.9 fL (80.0-100.0); Mean Platelet Volume 6.7; Monocytes # (A) 0.3 k/uL (0-1.0); Monocytes % (A) 7 %; Neutrophils # (A) 2.7 k/uL (1.3-7.7); Neutrophils % (A) 62 %; Platelet Count 187 k/uL (150-450); RBC 3.95 m/uL (3.80-5.40); WBC 4.4 k/uL (3.8-10.6)
[2018-10-27 07:23] LABS: ALT 25 U/L (9-52); AST 50 U/L (14-36); African American GFR (CKD) >90 (>60 ml/min/1.73 sqM); Albumin 3.1 g/dL (3.5-5.0); Alkaline Phosphatase 110 U/L (38-126); Anion Gap 6 mmol/L; Blood Urea Nitrogen 4 mg/dL (7-17); Calcium 8.5 mg/dL (8.4-10.2); Carbon Dioxide 26 mmol/L (22-30); Chloride 110 mmol/L (98-107); Glucose 101 mg/dL (74-99); Potassium 4.4 mmol/L (3.5-5.1); Sodium 142 mmol/L (137-145); Total Bilirubin 0.8 mg/dL (0.2-1.3); Total Protein 5.9 g/dL (6.3-8.2)
[2018-10-27] MEDS: MORPHINE SULFATE 4 MG/ML SYRINGE IV PRN ×3 (08:31→19:42)
[2018-10-27] MEDS: PANTOPRAZOLE 40 MG/10 ML VIAL IVP SCH (08:32)
[2018-10-27] MEDS: MAGNESIUM OXIDE 400 MG TAB PO SCH (08:32)
[2018-10-27] MEDS: SERTRALINE 100 MG TAB PO SCH (08:32)
[2018-10-27] MEDS: METOPROLOL TARTRATE 25 MG TAB PO SCH ×2 (08:32→20:18)
[2018-10-27] MEDS: PIPERACILLIN-TAZOBACTAM 3.375 GM in SODIUM CHLORIDE 0.9% 100 ML IVPB SCH ×3 (08:36→23:49)
[2018-10-27] MEDS: HEPARIN SODIUM,PORCINE 5,000 UNIT/ML 1 ML VIAL SQ SCH ×3 (08:36→23:49)
--- NOTE | 2018-10-27 13:42 | P.PN ---
Subjective Progress Note Date: 10/27/18 CHIEF COMPLAINT: abdominal pain HISTORY OF PRESENT ILLNESS: Patient examined this morning at the bedside. She reports abdominal pain to right lower quadrant, mildly improved from yesterday. Reports some epigastric tenderness today and believes it is gas pains. Reports last BM was Thursday. She denies constipation and reports decreased oral intake over the past few days. WBC 4.4. Hemoglobin 11.6. PHYSICAL EXAM: VITAL SIGNS: Reviewed. GENERAL: Well-developed in no acute distress. HEENT: No sclera icterus. Extraocular movements grossly intact. Moist buccal mucosa. Head is atraumatic, normocephalic. ABDOMEN: Soft. Nondistended. Tenderness with palpation to right lower quadrant. Positive bowel sounds. No peritoneal signs. NEUROLOGIC: Alert and oriented. Cranial nerves II through XII grossly intact. ASSESSMENT: 1. Right lower quadrant abdominal pain 1 week 2. Intra-abdominal abscess, CT reports abscess measuring 4.3 x 3.7 cm near cecum, appendix normal per CT 3. Cholelithiasis and sludge within the gallbladder, no evidence of acute cholecystitis 4. History of constipation secondary to chronic opioid use PLAN: 1. Full liquid diet 2. Continue antibiotics 3. Begin colace 100mg BID. Begin simethicone for gas pains. 4. Repeat CT abdomen pelvis with oral contrast at 1800. Nurse practitioner note has been reviewed by physician. Signing provider agrees with the documented findings, assessment, and plan of care. Objective - Vital Signs Vital signs: Vital Signs Temp 98.7 F 10/27/18 07:08 Pulse 63 10/27/18 07:08 Resp 15 10/27/18 07:08 BP 105/57 10/27/18 07:08 Pulse Ox 93 L 10/27/18 07:08 Intake & Output 10/26/18 10/27/18 10/27/18 18:59 06:59 18:59 Intake Total 590 320 Balance 590 320 Intake: Oral 590 320 Other: Voiding Method Toilet # Voids 3 2 - Labs CBC & Chem 7: 10/27/18 06:35 10/27/18 06:35 Labs: Abnormal Lab Results - Last 24 Hours (Table) 10/27/18 Range/Units 06:35 Chloride 110 H (98-107) mmol/L BUN 4 L (7-17) mg/dL Glucose 101 H (74-99) mg/dL AST 50 H (14-36) U/L Total Protein 5.9 L (6.3-8.2) g/dL Albumin 3.1 L (3.5-5.0) g/dL
[2018-10-27] MEDS: IOPAMIDOL-300 CONTRAST 30 ML VIAL (ORAL USE) PO PRN ×2 (17:03→18:11)
[2018-10-27] MEDS: SIMETHICONE 40 MG/0.6 ML DROPS 2,000 MG/30 ML BOTTLE PO SCH ×3 (17:18→20:18)
--- NOTE | 2018-10-27 19:05 | CT ---
EXAMINATION TYPE: CT abdomen pelvis wo con DATE OF EXAM: 10/27/2018 COMPARISON: 10/25/2018 HISTORY: RLQ pain, follow up to abscess. CT DLP: 597.6 mGycm Automated exposure control for dose reduction was used. TECHNIQUE: Helical acquisition of images was performed from the lung bases through the pelvis. FINDINGS: There are bilateral pleural effusions. There is some patchy infiltrate and atelectasis at the lung ba ses. Heart size is normal. There is 1 cm calcified granuloma left lower lobe. Stomach appears normal. Liver shows no focal defect. There are multiple gallstones. There is no evide nce of a splenic mass. There is no evidence of pancreatic mass. Bile ducts are not dilated. There is no adrenal mass. Kidneys have normal size. There is no hydronephrosis. There are multiple re troperitoneal lymph nodes that measure up to 1.7 cm. Bladder distends smoothly. There is no inguinal hernia. There is subcutaneous edema over the anterior lower abdomen. There is free fluid in the pelvi s. There are multiple sigmoid diverticula. There is complex 5 x 4 cm mass in the right lower quadrant inferior to the cecum. Appendix is not definitely seen. I see no definite ovarian mass. Lumbar vertebra have normal alignment. There is depression of the superior endplate centrally of L3 c onsistent with an old fracture. Bony pelvis is intact. There are multiple right inguinal lymph nodes that measure up to 1 cm. There is presacral perirectal fluid accumulation up to 1 cm in thickness. IMPRESSION: RIGHT LOWER QUADRANT MIXED DENSITY MASS HAS MOSTLY SOFT TISSUE DENSITY AND IS INCREASED COMPARED TO E XAM 2 DAYS AGO. THERE IS NEW FREE FLUID IN THE PELVIS COMPARED TO OLD EXAM. MASS COULD RELATE TO PHLE GMON OR ABSCESS. THERE IS INCREASED SUBCUTANEOUS EDEMA OVER THE LOWER ANTERIOR PELVIS COMPARED TO LAS T EXAM. MILD RIGHT INGUINAL ADENOPATHY UNCHANGED. Abdominal retroperitoneal adenopathy unchanged. The re is increasing presacral perirectal fluid accumulation. The possibility of a bleeding mycotic aneurysm should also be considered but thought to be unlikely. Exam limited by lack of vascular contrast. There is stable sigmoid diverticulosis.
[2018-10-27] MEDS: SODIUM CHLORIDE 0.9% 1,000 ML IV SCH ×2 (19:39→23:52)
[2018-10-27] MEDS: ATORVASTATIN 20 MG TAB PO SCH (20:18)
[2018-10-27] MEDS: AMITRIPTYLINE HCL 25 MG TAB PO SCH (20:18)
[2018-10-27] MEDS: DOCUSATE 100 MG CAP PO SCH (20:18)
[2018-10-27] MEDS: clonazePAM 0.5 MG TAB PO SCH (20:18)
[2018-10-28] MEDS: MORPHINE SULFATE 4 MG/ML SYRINGE IV PRN ×2 (03:56→08:08)
[2018-10-28] MEDS: PANTOPRAZOLE 40 MG/10 ML VIAL IVP SCH (08:07)
[2018-10-28] MEDS: PIPERACILLIN-TAZOBACTAM 3.375 GM in SODIUM CHLORIDE 0.9% 100 ML IVPB SCH ×3 (08:07→23:38)
[2018-10-28] MEDS: METOPROLOL TARTRATE 25 MG TAB PO SCH ×2 (08:08→21:36)
[2018-10-28] MEDS ORDERED: DEXAMETHASONE SOD PHOSPHATE 10 MG/ML 1 ML VIAL IV ONE (09:33)
[2018-10-28] MEDS ORDERED: IV FLUID CONTINUATION 1,000 ML IV ONE (09:33)
[2018-10-28] MEDS ORDERED: ONDANSETRON 4 MG/2 ML VIAL IVP ONE (09:33)
[2018-10-28] MEDS ORDERED: ROPIVACAINE 400 MG, HYDROMORPHONE (PF) 5 MG in SODIUM CHLORIDE 0.9% 170 ML EPIDURAL PRN (10:01)
[2018-10-28] MEDS ORDERED: NALOXONE 0.4 MG/ML 1 ML VIAL IV PRN ×2 (10:01→12:34)
--- NOTE | 2018-10-28 10:10 | P.PN ---
Progress Note - Text Progress Note Date: 10/28/18 The patient has increased pain lower quadrant. Her CAT scan shows a worsening right colon/pelvic mass/abscess. Patient will undergo exposure laparotomy right colectomy today.
[2018-10-28] MEDS: HEPARIN SODIUM,PORCINE 5,000 UNIT/ML 1 ML VIAL SQ SCH ×4 (10:44→23:35)
[2018-10-28] MEDS: DOCUSATE 100 MG CAP PO SCH ×2 (10:44→21:36)
[2018-10-28] MEDS: SERTRALINE 100 MG TAB PO SCH (10:44)
[2018-10-28] MEDS: SODIUM CHLORIDE 0.9% 1,000 ML IV SCH ×2 (10:45→17:05)
[2018-10-28] MEDS: SIMETHICONE 40 MG/0.6 ML DROPS 2,000 MG/30 ML BOTTLE PO SCH ×4 (10:45→21:36)
[2018-10-28] MEDS ORDERED: HYDROmorphone (PF) 1 MG/ML ONE (11:03)
[2018-10-28] MEDS ORDERED: MIDAZOLAM 2 MG/2 ML VIAL ONE (11:03)
[2018-10-28] MEDS ORDERED: fentaNYL (PF) 50 MCG/ML 2 ML AMP ONE (11:03)
[2018-10-28] MEDS ORDERED: PROPOFOL 10 MG/ML 20 ML VIAL IV ONE (11:03)
[2018-10-28] MEDS ORDERED: NEOSTIGMINE 1 MG/ML 10 ML VIAL ONE (11:03)
[2018-10-28] MEDS ORDERED: ePHEDrine SULFATE/0.9% NACL/PF 50 MG/5 ML SYRINGE IV ONE (11:03)
[2018-10-28] MEDS ORDERED: GLYCOPYRROLATE 0.2 MG/ML 2 ML VIAL ONE (11:03)
[2018-10-28] MEDS ORDERED: LIDOCAINE 1% INJ 10MG/ML (20 ML MDV) ONE (11:03)
[2018-10-28] MEDS ORDERED: ROCURONIUM BROMIDE 10 MG/ML 10 ML VIAL IV ONE (11:03)
[2018-10-28] MEDS ORDERED: LACTATED RINGERS 1,000 ML IV ONE (12:30)
--- NOTE | 2018-10-28 12:34 | P.OP ---
Date of Procedure: 10/28/18 Preoperative Diagnosis: Cecal abscess Postoperative Diagnosis: Probable right tubo-ovarian abscess pathology pending Lymphadenopathy Procedure(s) Performed: Right salpingo-oophorectomy Right pelvic lymph node biopsy and culture Anesthesia: JORGE Surgeon: Fahad Brush Estimated Blood Loss (ml): 35 Pathology: other (Right salpingo-oophorectomy) Condition: stable Disposition: PACU Description of Procedure: The patient's placed on the operating table in the supine position. She received general anesthesia. Her abdomen was prepped and draped usual fashion. The abdomen was entered through a midline incision upon entering the pleural cavity there was evidence of some ascites. The right colon was brought up into the wound and examined. The cecum was examined there is no evidence of any appendicitis there is no abscess located on cecum. At this point the right pelvis was examined. There was an obviously inflamed/infected lymph node. The peritoneum over the lymph node was opened and then the enlarged lymph node was dissected and sent to pathology. It measured approximately 3 cm in diameter. The right tube and ovary appeared to be inflamed. No definite abscess was found however due the significant inflammation performarightsalpingo-oophorectomy.T the round ligament was divided between Jessica clamps and ligated with 0 Vicryl ties. And then the tube was clamped between Jessica clamps and ligated with 0 Vicryl ties. The specimen was sent to pathology. The pelvis was irrigated. A ROLANDO drain is placed and pelvis and brought through a stab wound in the left abdominal wall. The fascia was closed with looped #1 PDS suture. Skin was closed chrissy. Patient top she will was sent to recovery in stable condition.
[2018-10-28] MEDS: MAGNESIUM OXIDE 400 MG TAB PO SCH (15:26)
[2018-10-28] MEDS: diphenhydrAMINE 50 MG/ML 1 ML VIAL IVP PRN ×2 (15:34→21:36)
[2018-10-28] MEDS: LACTATED RINGERS 1,000 ML IV ONE ×2 (15:47→19:16)
[2018-10-28] MEDS: AMITRIPTYLINE HCL 25 MG TAB PO SCH (21:35)
[2018-10-28] MEDS: ATORVASTATIN 20 MG TAB PO SCH (21:35)
[2018-10-28] MEDS: clonazePAM 0.5 MG TAB PO SCH (21:35)
--- NOTE | 2018-10-28 23:35 | P.CONS ---
History of Present Illness - Reason for Consult Consult date: 10/28/18 Right tuboovarian abscess Requesting physician: Fahad Brush - Chief Complaint Right lower quadrant abdominal pain 7 days - History of Present Illness Patient is a 63 year female presenting to the ER at [facility] with chief complaints of right lower quadrant abdominal pain that started about a week ago patient denies any history of any trauma pain was mostly sudden onset and is gradually increased in severity patient described the pain to be sharp and almost 10 out of 10 in severity patient did have some associated nausea but no vomiting she did have constipation but has been passing gas did have some chills but no fever with asymptomatic the patient was evaluated by the ER physician on arrival to the patient was afebrile her white count was normal the patient had did have a CT of abdominal pelvis done with IV contrast only concern for possible right lower quadrant abscess patient has been treated with IV Zosyn repeat CAT scan within 48 hours tissues increase in size of that fluid collection and concern for possible abscess patient was subsequently taken to the OR with concern for possible cecal abscess however she was noticed to have a right tubo-ovarian abscess patient is status post right oophorectomy (biopsy and culture she was continued on Zosyn and infectious disease was consulted for further recommendation about antibiotic therapy Review of Systems Positive points has been mentioned in HPI rest of the systems are negative Past Medical History Past Medical History: Cancer, Chest Pain / Angina, Eye Disorder, Hyperlipidemia, Musculoskeletal Disorder Additional Past Medical History / Comment(s): States nonhodgkins lymphoma diagnosed in 2006. States back deterioration. Palpitations due to atrial fibrillation. Glaucoma, possible start of cataracts stated per patient. History of Any Multi-Drug Resistant Organisms: None Reported Past Surgical History: Orthopedic Surgery Additional Past Surgical History / Comment(s): Biopsy for Lymphoma. Vaginal Polyp removed in 2006. Right Shoulder rotator cuff repair, Right Knee Arthroscopy, ORIF RT Ankle in 2006 -has plate/screws. Past Anesthesia/Blood Transfusion Reactions: No Reported Reaction Past Psychological History: Anxiety Additional Psychological History / Comment(s): pt is independant, lives with spouse. 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 Smoking Status: Current every day smoker Past Alcohol Use History: None Reported Additional Past Alcohol Use History / Comment(s): Started Smoking at age 14, Smokes 1 pack per day. Past Drug Use History: None Reported - Past Family History Mother Family Medical History: COPD, Coronary Artery Disease (CAD), Myocardial Infarction ([place]), Seizure Disorder Father Family Medical History: Coronary Artery Disease (CAD), Seizure Disorder Medications and Allergies Home Medications Medication Instructions Recorded Confirmed Type Sertraline [Zoloft] 150 mg PO DAILY 06/05/14 10/25/18 History Ascorbic Acid [Vitamin C] 500 mg PO DAILY 06/07/14 10/25/18 History Vitamin E (Dl,Tocopheryl Acet) 400 unit PO DAILY 06/07/14 10/25/18 History [Vitamin E] Aspirin EC [Ecotrin Low Dose] 81 mg PO DAILY 09/19/15 10/25/18 History Metoprolol Tartrate [Lopressor] 25 mg PO BID 10/08/15 10/25/18 History Amitriptyline HCl [Elavil] 25 mg PO HS 10/25/18 10/25/18 History Biotin 5 mg PO DAILY 10/25/18 10/25/18 History Calcium Carbonate [Calcium] 600 mg PO DAILY 10/25/18 10/25/18 History HYDROcodone/APAP 7.5-325MG [[place] 0.5 - 1 tab PO TID PRN 10/25/18 10/25/18 History 7.5-325] Magnesium 200 mg PO DAILY 10/25/18 10/25/18 History Melatonin 20 mg PO HS 10/25/18 10/25/18 History Simvastatin [Zocor] 40 mg PO HS 10/25/18 10/25/18 History Vitamin C/Biotin [Hair, Skin and 1 tab PO DAILY 10/25/18 10/25/18 History Nails] clonazePAM [KlonoPIN] 0.25 mg PO HS 10/25/18 10/25/18 History Allergies Allergy/AdvReac Type Severity Reaction Status Date / Time NSAIDS (Non-Steroidal AdvReac PROBLEMS Verified 10/25/18 11:31 Anti-Inflamma URINATING Physical Exam Vitals: Vital Signs Temp Pulse Resp BP BP Pulse Ox 10/28/18 13:30 69 18 96/54 93 L 10/28/18 13:15 69 16 100/51 92 L 10/28/18 13:00 70 16 94/54 94 L 10/28/18 12:45 69 14 116/57 98 10/28/18 12:40 97.1 F L 68 22 116/57 99 10/28/18 09:55 70 20 134/53 95 10/28/18 09:12 99.4 F 65 18 125/57 98 10/28/18 07:00 98.4 F 69 16 122/77 94 L 10/27/18 23:00 98.7 F 67 16 101/54 94 L 10/27/18 19:20 97.5 F L 74 16 134/75 96 Intake and Output 10/28/18 10/28/18 10/28/18 06:59 14:59 22:59 Intake Total 1400 600 Output Total 180 Balance 1400 420 Intake: IV 600 Intake, IV Titration 1200 Amount Sodium Chloride 0.9% 1, 1200 000 ml @ 120 mls/hr IV . Q8H20M [facility] Rx#:[id number] Oral 200 Output: Urine 80 Estimated Blood Loss 100 Other: # Voids 2 GENERAL DESCRIPTION: Middle-aged female lying in bed, no distress. No tachypnea or accessory muscle of respiration use. HEENT: Shows Pallor , no scleral icterus. Oral mucous membrane is dry. No pharyngeal erythema or thrush NECK: Trachea central, no thyromegaly. LUNGS: Unlabored breathing. Clear to auscultation anteriorly. No wheeze or crackle. HEART: S1, S2, regular rate and rhythm. No loud murmur ABDOMEN: Soft, right lower quadrant tenderness , no guarding or rigidity, ROLANDO drain with bloodstained secretions no purulence EXTREMITIES: No edema of feet. SKIN: No rash, no masses palpable. NEUROLOGICAL: The patient is awake, alert, oriented x3, mood and affect normal. Results CBC & Chem 7: 10/27/18 06:35 10/27/18 06:35 Assessment and Plan Assessment: 1-patient presented to hospital the right lower quadrant abdominal pain of one- day duration in this patient with no fever or elevated white count with a CT suspicious for possible cecal abscess however at the time of surgery she was noticed to have possible tubo-ovarian abscess patient is status post right oophorectomy lymph node biopsy and cultures which are currently pending with concern for possible tubo-ovarian hematoma on the basis of clinical findings wi th abscess less likely but not entirely excluded Plan: 1-patient will be continued on Zosyn 3.375 g every 8 hours 2-IV fluid we will follow on clinical condition and culture to further adjust medication if needed Thank you for this consultation will follow this patient along with you Time with Patient: Greater than 30
[2018-10-29] MEDS: SODIUM CHLORIDE 0.9% 1,000 ML IV SCH ×2 (02:42→20:09)
[2018-10-29] MEDS ORDERED: SODIUM CHLORIDE 0.9% 1,000 ML IV ONE (07:27)
[2018-10-29] MEDS: SERTRALINE 100 MG TAB PO SCH (08:33)
[2018-10-29] MEDS: PIPERACILLIN-TAZOBACTAM 3.375 GM in SODIUM CHLORIDE 0.9% 100 ML IVPB SCH ×3 (08:33→23:35)
[2018-10-29] MEDS: MAGNESIUM OXIDE 400 MG TAB PO SCH (08:33)
[2018-10-29] MEDS: METOPROLOL TARTRATE 25 MG TAB PO SCH ×2 (08:34→20:36)
[2018-10-29] MEDS: DOCUSATE 100 MG CAP PO SCH ×2 (08:34→20:36)
[2018-10-29] MEDS: ENOXAPARIN 40 MG/0.4 ML SYRINGE SQ SCH (08:34)
[2018-10-29] MEDS: PANTOPRAZOLE 40 MG/10 ML VIAL IVP SCH (08:37)
[2018-10-29] MEDS: HEPARIN SODIUM,PORCINE 5,000 UNIT/ML 1 ML VIAL SQ SCH ×2 (08:38→18:57)
[2018-10-29 10:01] LABS: Basophils % (A) 1 %; Eosinophils # (A) 0.1 k/uL (0-0.7); Eosinophils % (A) 1 %; HGB 10.8 gm/dL (11.4-16.0); Lymphocytes # (A) 1.1 k/uL (1.0-4.8); Lymphocytes % (A) 18 %; MCHC 31.9 g/dL (31.0-37.0); MCV 94.1 fL (80.0-100.0); Monocytes # (A) 0.4 k/uL (0-1.0); Monocytes % (A) 6 %; Neutrophils # (A) 4.5 k/uL (1.3-7.7); Neutrophils % (A) 73 %; Platelet Count 236 k/uL (150-450); RBC 3.61 m/uL (3.80-5.40); RDW 13.2 % (11.5-15.5); WBC 6.1 k/uL (3.8-10.6)
[2018-10-29] MEDS: SIMETHICONE 40 MG/0.6 ML DROPS 2,000 MG/30 ML BOTTLE PO SCH ×4 (10:44→20:36)
--- NOTE | 2018-10-29 10:58 | P.PN ---
Progress Note - Text Anesthesia POD 2, 0.650. Status Post exploratory laparotomy with a right salpingo-oophorectomy under general endotracheal anesthesia with an epidrual catheter placed at T12 for post surgical pain releif. VAS (0, 4) with Ropivicaine 0.1 % and Dilaudid 20 mcg / cc running at 4 cc / hr. Lower extremity strength (4/4). No sedation. Site looks OK.
--- NOTE | 2018-10-29 13:08 | P.PN ---
<Brunilda Eubanks Craig - Last Filed: 10/29/18 12:57> Subjective Progress Note Date: 10/29/18 CHIEF COMPLAINT: abdominal pain HISTORY OF PRESENT ILLNESS: Patient is s/p right salpingo-oophorectomy and right pelvic lymph node biopsy culture secondary to probable right tubo-ovarian absc ess. Postop day #1. Patient examined this morning at the bedside. She was hypotensive throughout the night and epidural infusion was held. BP this morning 94/57. She reports abdominal pain this morning. Epidural resumed at 4cc/hr. Guo with deepali urine. Denies passing flatus. Denies BM. WBC 6.1. Hemoglobin 10.8. PHYSICAL EXAM: VITAL SIGNS: Reviewed. GENERAL: Well-developed in no acute distress. HEENT: No sclera icterus. Extraocular movements grossly intact. Moist buccal mucosa. Head is atraumatic, normocephalic. ABDOMEN: Soft. Nondistended. Surgical dressing saturated. ROLANDO with serosanguineous drainage. NEUROLOGIC: Alert and oriented. Cranial nerves II through XII grossly intact. ASSESSMENT: 1. Right lower quadrant abdominal pain 1 week 2. Intra-abdominal abscess, CT reports abscess measuring 4.3 x 3.7 cm near cecum, appendix normal per CT, s/p right salpingo-oophorectomy and right pelvic lymph node biopsy culture secondary to probable right tubo-ovarian abscess 3. Cholelithiasis and sludge within the gallbladder, no evidence of acute cholecystitis 4. History of constipation secondary to chronic opioid use PLAN: 1. Continue clear liquid diet 2. Pain control. Continue epidural. Discontinue POD #3 (Thursday) 3. Continue guo catheter while epidural in place 4. Continue antibiotics. Infectious disease following. 5. Await pathology 6. Replace optifoam dressing. If drainage to dressing persists, change to PREVENA wound management system to avoid skin excoriation 7. 1L fluid bolus 8. Incentive spirometry 9. Activity as tolerated. Patient to be OOB today and ambulatory Nurse practitioner note has been reviewed by physician. Signing provider agrees with the documented findings, assessment, and plan of care. Objective - Vital Signs Vital signs: Vital Signs Temp 98.4 F 10/29/18 07:00 Pulse 89 10/29/18 07:00 Resp 16 10/29/18 07:00 BP 94/57 10/29/18 07:00 Pulse Ox 94 L 10/29/18 07:00 Intake & Output 10/28/18 10/29/18 10/29/18 18:59 06:59 18:59 Intake Total 900 1200 Output Total 380 490 30 Balance 520 710 -30 Intake: IV 600 Intake, IV Titration 1050 Amount Lactated Ringers 1,000 ml 850 @ 125 mls/hr IV .Q8H ONE Rx#:[id number] Piperacillin-Tazobactam 3 200 .375 gm In Sodium Chloride 0.9% 100 ml @ 25 mls/hr IVPB Q8HR [facility] Rx# :[id number] Oral 300 150 Output: Drainage 370 30 Right Abdomen 370 30 Urine 280 120 Estimated Blood Loss 100 Other: Voiding Method Indwelling Catheter Indwelling Catheter - Labs CBC & Chem 7: 10/29/18 08:27 10/27/18 06:35 Labs: Abnormal Lab Results - Last 24 Hours (Table) 10/29/18 Range/Units 08:27 RBC 3.61 L (3.80-5.40) m/uL Hgb 10.8 L (11.4-16.0) gm/dL Microbiology - Last 24 Hours (Table) 10/28/18 12:18 Gram Stain - Preliminary Lymph Node Wound Culture - Preliminary 10/28/18 12:18 Anaerobic Culture - Preliminary Lymph Node <Mike Marino - Last Filed: 10/29/18 17:40> Subjective As above. Patient doing better today. She is hungry for more than just liquids. Keep epidural for now. Will advance diet. Repeat labs tomorrow. Objective - Vital Signs Vital signs: Vital Signs Temp 98.9 F 10/29/18 14:39 Pulse 88 10/29/18 14:39 Resp 16 10/29/18 14:39 BP 99/62 10/29/18 14:39 Pulse Ox 94 L 10/29/18 17:12 Intake & Output 10/28/18 10/29/18 10/29/18 18:59 06:59 18:59 Intake Total 900 1200 1100 Output Total 380 490 485 Balance 520 710 615 Intake: IV 600 Intake, IV Titration 1050 1100 Amount Lactated Ringers 1,000 ml 850 @ 125 mls/hr IV .Q8H [facility] Rx#:[id number] Piperacillin-Tazobactam 3 200 100 .375 gm In Sodium Chloride 0.9% 100 ml @ 25 mls/hr IVPB Q8HR [facility] Rx# :[id number] Sodium Chloride 0.9% 1, 1000 000 ml @ 999 mls/hr IV . Q1H1M [facility] Rx#:[id number] Oral 300 150 Output: Drainage 370 60 Right Abdomen 370 60 Urine 280 120 425 Estimated Blood Loss 100 Other: Voiding Method Indwelling Catheter Indwelling Catheter - Labs CBC & Chem 7: 10/29/18 08:27 10/27/18 06:35 Labs: Abnormal Lab Results - Last 24 Hours (Table) 10/29/18 Range/Units 08:27 RBC 3.61 L (3.80-5.40) m/uL Hgb 10.8 L (11.4-16.0) gm/dL Microbiology - Last 24 Hours (Table) 10/28/18 12:18 Gram Stain - Preliminary Lymph Node Wound Culture - Preliminary 10/28/18 12:18 Anaerobic Culture - Preliminary Lymph Node
--- NOTE | 2018-10-29 17:09 | PN ---
PROGRESS NOTE DATE OF SERVICE: 10/29/2018. REASON FOR FOLLOWUP: Tubo-ovarian abscess. INTERVAL HISTORY: The patient is currently afebrile. The patient is still complaining of pain to the right lower quadrant area with slight worsening with movement. Denies having any nausea or vomiting. No diarrhea. No chest pain, shortness of breath or cough. PHYSICAL EXAMINATION: Blood pressure is 99/62 with a pulse of 88, temperature 98.9. She is 97% on room air. General description is a middle-aged female up in the bed in no distress. RESPIRATORY SYSTEM: Unlabored breathing. Clear to auscultation anteriorly. HEART: S1, S2. Regular rate and rhythm. ABDOMEN: Soft. Mild tenderness. No guarding or rigidity. EXTREMITIES: No edema of the feet. LABS: Cultures are currently pending. White count 6.1. DIAGNOSTIC IMPRESSION AND PLAN: Patient admitted to hospital with abdominal pain. Initial concern for possible cecal abscess. The patient is status post laparotomy with drainage of this abscess. Will wait for the culture to finalize. Keep the patient on Zosyn. Will adjust antibiotics further based on the culture report. Continue supportive care. MMODL / IJN: [id number] /
[2018-10-29] MEDS: clonazePAM 0.5 MG TAB PO SCH (20:36)
[2018-10-29] MEDS: ATORVASTATIN 20 MG TAB PO SCH (20:36)
[2018-10-29] MEDS: AMITRIPTYLINE HCL 25 MG TAB PO SCH (20:36)
--- NOTE | 2018-10-29 23:43 | P.PN ---
Subjective Progress Note Date: 10/27/18 Principal diagnosis: Intra-abdominal abscess. Patient is a 63-year-old female with a known history of non-Hodgkin's lymphoma diagnosed in 2006, anxiety, osteoarthritis and hyperlipidemia came to ER with complaints of right lower quadrant abdominal pain. Patient has been having sharp pains for the past 1 week. Patient also recently having symptoms of constipation. Patient thought that she may be having appendicitis and came to ER for evaluation. Denied any complaints of fever or chills. No radiation of the pain. Pain is constant otherwise. No complaints of nausea vomiting or diarrhea. No fever no chills. No chest pain or shortness of breath. Patient is able to pass gas but had only small bowel movements. Denied any history of abdominal surgeries or diverticulitis. CT of the abdominal pelvis showed low density collection right anterior iliac region suspicious for abscess likely from the cecum. The appendix however appears within normal limits. Some iliac lymphadenopathy may be in this region. Cholelithiasis and sludge within the gallbladder. Patient has been afebrile and laboratory data reviewed. 10/27/2018 Patient is still complaining of right lower quadrant abdominal pain. No fever no chills. Continued on IV antibiotics in the form of Zosyn. Repeat CT of the abdominal pelvis was done showed right lower quadrant mixed intensity mass has mostly soft tissue density which is increasing in size. General surgery is following No chest pain or shortness of breath. Current medications reviewed. Objective - Vital Signs Vital signs: Vital Signs Temp 98.1 F 10/27/18 14:47 Pulse 67 10/27/18 14:47 Resp 17 10/27/18 14:47 BP 128/73 10/27/18 14:47 Pulse Ox 98 10/27/18 14:47 Intake & Output 10/26/18 10/27/18 10/27/18 18:59 06:59 18:59 Intake Total 590 500 Balance 590 500 Intake: Oral 590 500 Other: Voiding Method Toilet # Voids 3 2 - Exam PHYSICAL EXAMINATION: Patient is lying in the bed comfortably, no acute distress, awake alert and oriented.. HEENT: Normocephalic. Neck is supple. Pupils reactive. Nostrils clear. Oral cavity is moist. Ears reveal no drainage. Neck reveals no JVD, carotid bruits, or thyromegaly. CHEST EXAMINATION: Trachea is central. Symmetrical expansion. Lung newsome clear to auscultation and percussion. CARDIAC: Normal S1, S2 with no gallops. No murmurs ABDOMEN: Soft. Right lower quadrant tenderness. No guarding or rigidity. Bowel sounds normal. No organomegaly. No abdominal bruits. Extremities: reveal no edema. No clubbing or cyanosis Neurologically awake, alert, oriented x3 with well-coordinated movements. No focal deficits noted Skin: No rash or skin lesions. Psychiatric: Coperative. Nonsuicidal Musculoskeletal: No joint swelling or deformity. Normal range of motion. - Labs CBC & Chem 7: 10/29/18 08:27 10/27/18 06:35 Labs: Abnormal Lab Results - Last 24 Hours (Table) 10/27/18 Range/Units 06:35 Chloride 110 H (98-107) mmol/L BUN 4 L (7-17) mg/dL Glucose 101 H (74-99) mg/dL AST 50 H (14-36) U/L Total Protein 5.9 L (6.3-8.2) g/dL Albumin 3.1 L (3.5-5.0) g/dL Assessment and Plan Assessment: Right lower quadrant abdominal pain due to abscess Cecal abscess as per CT abdomen and pelvis. 4.3 x 3.7 cm Cholelithiasis and gallbladder sludge without acute cholecystitis Chronic constipation likely due to opiate use Hyperlipidemia History of non-Hodgkin's lymphoma diagnosed in 2006 Anxiety/depression and palpitations Nicotine addiction currently everyday smoker DVT prophylaxis with heparin subcu Plan: Patient be continued on IV hydration with normal saline. Continue with antibiotics in the form of Zosyn. Otherwise patient still having abdominal discomfort. Follow-up culture reports. May repeat imaging studies for resolution of abscess. No fever. no leukocytosis. Continue with home medications for anxiety and depression. Smoking cessation was counseled. Gen. surgery recommendations. Will continue to follow closely. Time with Patient: Greater than 30
--- NOTE | 2018-10-29 23:45 | P.PN ---
Subjective Progress Note Date: 10/28/18 Principal diagnosis: Intra-abdominal abscess. Patient is a 63-year-old female with a known history of non-Hodgkin's lymphoma diagnosed in 2006, anxiety, osteoarthritis and hyperlipidemia came to ER with complaints of right lower quadrant abdominal pain. Patient has been having sharp pains for the past 1 week. Patient also recently having symptoms of constipation. Patient thought that she may be having appendicitis and came to ER for evaluation. Denied any complaints of fever or chills. No radiation of the pain. Pain is constant otherwise. No complaints of nausea vomiting or diarrhea. No fever no chills. No chest pain or shortness of breath. Patient is able to pass gas but had only small bowel movements. Denied any history of abdominal surgeries or diverticulitis. CT of the abdominal pelvis showed low density collection right anterior iliac region suspicious for abscess likely from the cecum. The appendix however appears within normal limits. Some iliac lymphadenopathy may be in this region. Cholelithiasis and sludge within the gallbladder. Patient has been afebrile and laboratory data reviewed. 10/27/2018 Patient is still complaining of right lower quadrant abdominal pain. No fever no chills. Continued on IV antibiotics in the form of Zosyn. Repeat CT of the abdominal pelvis was done showed right lower quadrant mixed intensity mass has mostly soft tissue density which is increasing in size. General surgery is following No chest pain or shortness of breath. 10/28/2018 Patient was taken to or today for expiratory laparotomy due to increasing in size of soft tissue density. she was noticed to have possible tubo-ovarian abscess patient is status post right oophorectomy lymph node biopsy and cultures which are currently pending. Patient is being continued on Zosyn now. Follow-up culture reports. Current medications reviewed. Objective - Vital Signs Vital signs: Vital Signs Temp 98.7 F 10/28/18 20:10 Pulse 85 10/28/18 20:10 Resp 18 10/28/18 20:10 BP 90/54 10/28/18 20:10 Pulse Ox 93 L 10/28/18 20:10 Intake & Output 10/28/18 10/28/18 10/29/18 06:59 18:59 06:59 Intake Total 1640 900 Output Total 380 270 Balance 1640 520 -270 Intake: IV 600 Intake, IV Titration 1200 Amount Sodium Chloride 0.9% 1, 1200 000 ml @ 120 mls/hr IV . Q8H20M [facility] Rx#:[id number] Oral 440 300 Output: Drainage 270 Right Abdomen 270 Urine 280 Estimated Blood Loss 100 Other: # Voids 2 - Exam PHYSICAL EXAMINATION: Patient is lying in the bed comfortably, no acute distress, awake alert and oriented.. HEENT: Normocephalic. Neck is supple. Pupils reactive. Nostrils clear. Oral cavity is moist. Ears reveal no drainage. Neck reveals no JVD, carotid bruits, or thyromegaly. CHEST EXAMINATION: Trachea is central. Symmetrical expansion. Lung newsome clear to auscultation and percussion. CARDIAC: Normal S1, S2 with no gallops. No murmurs ABDOMEN: Soft. Right lower quadrant tenderness. No guarding or rigidity. [place] el sounds normal. No organomegaly. No abdominal bruits. Extremities: reveal no edema. No clubbing or cyanosis Neurologically awake, alert, oriented x3 with well-coordinated movements. No focal deficits noted Skin: No rash or skin lesions. Psychiatric: Coperative. Nonsuicidal Musculoskeletal: No joint swelling or deformity. Normal range of motion. - Labs CBC & Chem 7: 10/29/18 08:27 10/27/18 06:35 Labs: Microbiology - Last 24 Hours (Table) 10/28/18 12:18 Anaerobic Culture - Preliminary Lymph Node 10/28/18 12:18 Wound Culture - Preliminary Lymph Node Assessment and Plan Assessment: Right lower quadrant abdominal pain due to abscess Cecal abscess as per CT abdomen and pelvis. 4.3 x 3.7 cm Cholelithiasis and gallbladder sludge without acute cholecystitis Chronic constipation likely due to opiate use Hyperlipidemia History of non-Hodgkin's lymphoma diagnosed in 2006 Anxiety/depression and palpitations Nicotine addiction currently everyday smoker DVT prophylaxis with heparin subcu Plan: Patient be continued on IV hydration with normal saline. Continue with antibiotics in the form of Zosyn. Otherwise patient still having abdominal discomfort. Follow-up culture reports. May repeat imaging studies for resolution of abscess. No fever. no leukocytosis. Continue with home medications for anxiety and depression. Smoking cessation was counseled. Gen. surgery recommendations. Will continue to follow closely. Time with Patient: Greater than 30
--- NOTE | 2018-10-29 23:51 | P.PN ---
Subjective Progress Note Date: 10/29/18 Principal diagnosis: Intra-abdominal abscess. Patient is a 63-year-old female with a known history of non-Hodgkin's lymphoma diagnosed in 2006, anxiety, osteoarthritis and hyperlipidemia came to ER with complaints of right lower quadrant abdominal pain. Patient has been having sharp pains for the past 1 week. Patient also recently having symptoms of constipation. Patient thought that she may be having appendicitis and came to ER for evaluation. Denied any complaints of fever or chills. No radiation of the pain. Pain is constant otherwise. No complaints of nausea vomiting or diarrhea. No fever no chills. No chest pain or shortness of breath. Patient is able to pass gas but had only small bowel movements. Denied any history of abdominal surgeries or diverticulitis. CT of the abdominal pelvis showed low density collection right anterior iliac region suspicious for abscess likely from the cecum. The appendix however appears within normal limits. Some iliac lymphadenopathy may be in this region. Cholelithiasis and sludge within the gallbladder. Patient has been afebrile and laboratory data reviewed. 10/27/2018 Patient is still complaining of right lower quadrant abdominal pain. No fever no chills. Continued on IV antibiotics in the form of Zosyn. Repeat CT of the abdominal pelvis was done showed right lower quadrant mixed intensity mass has mostly soft tissue density which is increasing in size. General surgery is following No chest pain or shortness of breath. 10/28/2018 Patient was taken to or today for expiratory laparotomy due to increasing in size of soft tissue density. she was noticed to have possible tubo-ovarian abscess patient is status post right oophorectomy lymph node biopsy and cultures which are currently pending. Patient is being continued on Zosyn now. Follow-up culture reports. 10/29/2018 Patient is status post right salpingo-oophorectomy and right pelvic lymph node biopsy. Pain is fairly controlled with epidural now. Denied any passing flatus or bowel movement. Complaining of Abdominal discomfort. Patient is hypotensive overnight and will be continued on IV fluids. Cultures are pending at this time. Continued on IV antibiotics in the form of Zosyn. Hemoglobin level is 10.8. WBC 6.1. Current medications reviewed. Objective - Vital Signs Vital signs: Vital Signs Temp 98.7 F 10/29/18 20:15 Pulse 81 10/29/18 20:15 Resp 18 10/29/18 20:15 BP 108/69 10/29/18 20:15 Pulse Ox 94 L 10/29/18 20:15 Intake & Output 10/29/18 10/29/18 10/30/18 06:59 18:59 06:59 Intake Total 1200 1340 240 Output Total 490 485 50 Balance 710 855 190 Intake: Intake, IV Titration 1050 1100 Amount Lactated Ringers 1,000 ml 850 @ 125 mls/hr IV .Q8H [facility] Rx#:[id number] Piperacillin-Tazobactam 3 200 100 .375 gm In Sodium Chloride 0.9% 100 ml @ 25 mls/hr IVPB Q8HR [facility] Rx# :[id number] Sodium Chloride 0.9% 1, 1000 000 ml @ 999 mls/hr IV . Q1H1M [facility] Rx#:[id number] Oral 150 240 240 Output: Drainage 370 60 50 Right Abdomen 370 60 50 Urine 120 425 Other: Voiding Method Indwelling Catheter Indwelling Catheter Indwelling Catheter - Exam PHYSICAL EXAMINATION: Patient is lying in the bed comfortably, no acute distress, awake alert and oriented.. HEENT: Normocephalic. Neck is supple. Pupils reactive. Nostrils clear. Oral cavity is moist. Ears reveal no drainage. Neck reveals no JVD, carotid bruits, or thyromegaly. CHEST EXAMINATION: Trachea is central. Symmetrical expansion. Lung newsome clear to auscultation and percussion. CARDIAC: Normal S1, S2 with no gallops. No murmurs ABDOMEN: Soft. Soreness at the surgical site.. No guarding or rigidity. Bowel sounds diminished. No organomegaly. No abdominal bruits. Extremities: reveal no edema. No clubbing or cyanosis Neurologically awake, alert, oriented x3 with well-coordinated movements. No focal deficits noted Skin: No rash or skin lesions. Psychiatric: Coperative. Nonsuicidal Musculoskeletal: No joint swelling or deformity. Normal range of motion. - Labs CBC & Chem 7: 10/29/18 08:27 10/27/18 06:35 Labs: Abnormal Lab Results - Last 24 Hours (Table) 10/29/18 Range/Units 08:27 RBC 3.61 L (3.80-5.40) m/uL Hgb 10.8 L (11.4-16.0) gm/dL Microbiology - Last 24 Hours (Table) 10/28/18 12:18 Gram Stain - Preliminary Lymph Node Wound Culture - Preliminary Assessment and Plan Assessment: Right lower quadrant abdominal pain. Possibly due to right Tubo ovarian abscess. Status post right salpingo-oophorectomy. Cecal abscess as per CT abdomen and pelvis. 4.3 x 3.7 cm Cholelithiasis and gallbladder sludge without acute cholecystitis Chronic constipation likely due to opiate use Hyperlipidemia History of non-Hodgkin's lymphoma diagnosed in 2006 Anxiety/depression and palpitations Nicotine addiction currently everyday smoker DVT prophylaxis with heparin subcu Plan: Patient be continued on IV hydration with normal saline. Continue with antibiotics in the form of Zosyn. Currently on a REFERENCE INVESTIGATOR for pain management.. Follow-up culture reports. No fever. no leukocytosis. Monitor H&H ID is following. Continue with home medications for anxiety and depression. Smoking cessation was counseled. Gen. surgery recommendations. Will continue to follow closely. Time with Patient: Greater than 30
[2018-10-30] MEDS: SODIUM CHLORIDE 0.9% 1,000 ML IV SCH ×2 (02:42→12:58)
[2018-10-30 08:04] LABS: Basophils % (A) 0 %; Eosinophils # (A) 0.2 k/uL (0-0.7); Eosinophils % (A) 3 %; HCT 33.2 % (34.0-46.0); HGB 10.9 gm/dL (11.4-16.0); Lymphocytes # (A) 1.1 k/uL (1.0-4.8); Lymphocytes % (A) 19 %; MCH 30.4 pg (25.0-35.0); MCHC 32.8 g/dL (31.0-37.0); MCV 92.9 fL (80.0-100.0); Mean Platelet Volume 7.1; Monocytes # (A) 0.3 k/uL (0-1.0); Monocytes % (A) 5 %; Neutrophils # (A) 4.3 k/uL (1.3-7.7); Neutrophils % (A) 72 %; Platelet Count 261 k/uL (150-450); RBC 3.57 m/uL (3.80-5.40); RDW 13.9 % (11.5-15.5)
[2018-10-30 08:39] LABS: African American GFR (CKD) >90 (>60 ml/min/1.73 sqM); Anion Gap 6 mmol/L; Blood Urea Nitrogen 4 mg/dL (7-17); Calcium 8.1 mg/dL (8.4-10.2); Carbon Dioxide 24 mmol/L (22-30); Chloride 110 mmol/L (98-107); Glucose 93 mg/dL (74-99); Potassium 3.7 mmol/L (3.5-5.1); Sodium 140 mmol/L (137-145)
--- NOTE | 2018-10-30 09:45 | P.PN ---
Subjective Progress Note Date: 10/30/18 Principal diagnosis: Post oophorectomy and lymph node biopsy Patient doing better today. She is hungry. Less bloating. No nausea. White blood cell count 6 Objective - Vital Signs Vital signs: Vital Signs Temp 98.4 F 10/30/18 07:00 Pulse 83 10/30/18 07:00 Resp 16 10/30/18 07:00 BP 125/62 10/30/18 07:00 Pulse Ox 95 10/30/18 07:00 Intake & Output 10/29/18 10/30/18 10/30/18 18:59 06:59 18:59 Intake Total 1340 1440 Output Total 485 1360 Balance 855 80 Intake: Intake, IV Titration 1100 1200 Amount Piperacillin-Tazobactam 3 100 .375 gm In Sodium Chloride 0.9% 100 ml @ 25 mls/hr IVPB Q8HR [facility] Rx# :[id number] Sodium Chloride 0.9% 1, 1200 000 ml @ 120 mls/hr IV . Q8H20M [facility] Rx#:[id number] Sodium Chloride 0.9% 1, 1000 000 ml @ 999 mls/hr IV . Q1H1M [facility] Rx#:[id number] Oral 240 240 Output: Drainage 60 160 Right Abdomen 60 160 Urine 425 1200 Uretheral ([place]) 1200 Other: Voiding Method Indwelling Catheter Indwelling Catheter - Exam Abdomen: Soft, nondistended, incision clean and dry, dressing intact - Labs CBC & Chem 7: 10/30/18 07:29 10/30/18 07:29 Labs: Abnormal Lab Results - Last 24 Hours (Table) 10/29/18 10/30/18 10/30/18 Range/Units 08:27 07:29 07:29 RBC 3.61 L 3.57 L (3.80-5.40) m/uL Hgb 10.8 L 10.9 L (11.4-16.0) gm/dL Hct 33.2 L (34.0-46.0) % Chloride 110 H (98-107) mmol/L BUN 4 L (7-17) mg/dL Calcium 8.1 L (8.4-10.2) mg/dL Microbiology - Last 24 Hours (Table) 10/28/18 12:18 Gram Stain - Preliminary Lymph Node Wound Culture - Preliminary Assessment and Plan (1) Intra-abdominal abscess Narrative/Plan: Will advance diet at this time. Increase activity. Await pathology. Current Visit: Yes Status: Acute Code(s): K65.1 - PERITONEAL ABSCESS SNOMED Code(s): 36604489
[2018-10-30] MEDS: PIPERACILLIN-TAZOBACTAM 3.375 GM in SODIUM CHLORIDE 0.9% 100 ML IVPB SCH ×3 (10:08→23:45)
[2018-10-30] MEDS: MAGNESIUM OXIDE 400 MG TAB PO SCH (10:09)
[2018-10-30] MEDS: SERTRALINE 100 MG TAB PO SCH (10:09)
[2018-10-30] MEDS: DOCUSATE 100 MG CAP PO SCH ×2 (10:09→20:00)
[2018-10-30] MEDS: METOPROLOL TARTRATE 25 MG TAB PO SCH ×2 (10:09→20:00)
[2018-10-30] MEDS: SIMETHICONE 40 MG/0.6 ML DROPS 2,000 MG/30 ML BOTTLE PO SCH ×4 (10:10→21:39)
[2018-10-30] MEDS: PANTOPRAZOLE 40 MG/10 ML VIAL IVP SCH (10:10)
--- NOTE | 2018-10-30 10:22 | P.PN ---
Progress Note - Text Progress Note Date: 10/30/18 Called by RN this morning, catheter was accidentally pulled with moving overnight. I did not see the patient today.
[2018-10-30] MEDS: MORPHINE SULFATE 4 MG/ML SYRINGE IV PRN ×2 (12:56→17:25)
[2018-10-30] MEDS ORDERED: FUROSEMIDE 10 MG/ML 2 ML VIAL IV ONE (15:33)
[2018-10-30] MEDS: ENOXAPARIN 40 MG/0.4 ML SYRINGE SQ SCH (17:25)
[2018-10-30] MEDS: ATORVASTATIN 20 MG TAB PO SCH (20:01)
[2018-10-30] MEDS: AMITRIPTYLINE HCL 25 MG TAB PO SCH (20:01)
[2018-10-30] MEDS: clonazePAM 0.5 MG TAB PO SCH (20:01)
[2018-10-31] MEDS: MORPHINE SULFATE 4 MG/ML SYRINGE IV PRN ×4 (04:08→21:02)
[2018-10-31 07:56] LABS: Basophils % (A) 0 %; Eosinophils # (A) 0.1 k/uL (0-0.7); Eosinophils % (A) 2 %; HGB 10.9 gm/dL (11.4-16.0); Lymphocytes # (A) 1.1 k/uL (1.0-4.8); Lymphocytes % (A) 19 %; MCH 30.2 pg (25.0-35.0); MCHC 32.9 g/dL (31.0-37.0); MCV 91.7 fL (80.0-100.0); Mean Platelet Volume 6.7; Monocytes # (A) 0.3 k/uL (0-1.0); Monocytes % (A) 5 %; Neutrophils # (A) 4.2 k/uL (1.3-7.7); Neutrophils % (A) 72 %; Platelet Count 264 k/uL (150-450); RDW 13.2 % (11.5-15.5); WBC 5.8 k/uL (3.8-10.6)
[2018-10-31 08:09] LABS: African American GFR (CKD) >90 (>60 ml/min/1.73 sqM); Anion Gap 7 mmol/L; Blood Urea Nitrogen 3 mg/dL (7-17); Calcium 8.2 mg/dL (8.4-10.2); Carbon Dioxide 25 mmol/L (22-30); Chloride 109 mmol/L (98-107); Glucose 105 mg/dL (74-99); Potassium 3.3 mmol/L (3.5-5.1); Sodium 141 mmol/L (137-145)
[2018-10-31] MEDS: PIPERACILLIN-TAZOBACTAM 3.375 GM in SODIUM CHLORIDE 0.9% 100 ML IVPB SCH ×2 (09:52→16:59)
[2018-10-31] MEDS: PANTOPRAZOLE 40 MG TABLET PO SCH (09:53)
[2018-10-31] MEDS: SERTRALINE 100 MG TAB PO SCH (09:53)
[2018-10-31] MEDS: METOPROLOL TARTRATE 25 MG TAB PO SCH ×2 (09:53→21:00)
[2018-10-31] MEDS: DOCUSATE 100 MG CAP PO SCH ×2 (09:53→21:01)
[2018-10-31] MEDS: MAGNESIUM OXIDE 400 MG TAB PO SCH (09:53)
[2018-10-31] MEDS: ENOXAPARIN 40 MG/0.4 ML SYRINGE SQ SCH (09:53)
--- NOTE | 2018-10-31 10:43 | P.PN ---
Subjective Progress Note Date: 10/31/18 Principal diagnosis: Post oophorectomy and lymph node biopsy Patient doing better today. She is passing flatus. Less pain. Fluids of been decreased. She is hungry for more food. Cultures are negative thus far. T-max 99. White blood cell count 5.8. Objective - Vital Signs Vital signs: Vital Signs Temp 99 F 10/31/18 07:00 Pulse 76 10/31/18 07:00 Resp 16 10/31/18 07:00 BP 149/80 10/31/18 07:00 Pulse Ox 95 10/31/18 07:00 Intake & Output 10/30/18 10/31/18 10/31/18 18:59 06:59 18:59 Intake Total 1440 840 240 Output Total 700 110 Balance 740 730 240 Intake: Intake, IV Titration 960 Amount Sodium Chloride 0.9% 1, 960 000 ml @ 120 mls/hr IV . Q8H20M [facility] Rx#:[id number] Oral 480 840 240 Output: Drainage 100 110 Right Abdomen 100 110 Urine 600 Uretheral ([place]) 600 Other: # Voids 2 - Exam Abdomen: Soft, nondistended, mild serous drainage from incision, mild tenderness, no erythema - Labs CBC & Chem 7: 10/31/18 07:17 10/31/18 07:17 Labs: Abnormal Lab Results - Last 24 Hours (Table) 10/31/18 10/31/18 Range/Units 07:17 07:17 RBC 3.60 L (3.80-5.40) m/uL Hgb 10.9 L (11.4-16.0) gm/dL Hct 33.0 L (34.0-46.0) % Potassium 3.3 L (3.5-5.1) mmol/L Chloride 109 H (98-107) mmol/L BUN 3 L (7-17) mg/dL Glucose 105 H (74-99) mg/dL Calcium 8.2 L (8.4-10.2) mg/dL Microbiology - Last 24 Hours (Table) 10/28/18 12:18 Anaerobic Culture - Preliminary Lymph Node 10/28/18 12:18 Gram Stain - Final Lymph Node Wound Culture - Final Assessment and Plan (1) Intra-abdominal abscess Narrative/Plan: Await final pathology. Advance diet to low fiber. Ambulate. Current Visit: Yes Status: Acute Code(s): K65.1 - PERITONEAL ABSCESS SNOMED Code(s): 88525131
[2018-10-31] MEDS: SIMETHICONE 40 MG/0.6 ML DROPS 2,000 MG/30 ML BOTTLE PO SCH ×3 (15:07→21:08)
[2018-10-31] MEDS: clonazePAM 0.5 MG TAB PO SCH (21:01)
[2018-10-31] MEDS: ATORVASTATIN 20 MG TAB PO SCH (21:01)
[2018-10-31] MEDS: AMITRIPTYLINE HCL 25 MG TAB PO SCH (21:01)
[2018-11-01] MEDS: PIPERACILLIN-TAZOBACTAM 3.375 GM in SODIUM CHLORIDE 0.9% 100 ML IVPB SCH ×4 (00:27→23:59)
--- NOTE | 2018-11-01 02:06 | PN ---
PROGRESS NOTE DATE OF SERVICE: 10/31/2018. REASON FOR FOLLOWUP: Tuboovarian abscess. INTERVAL HISTORY: The patient is currently afebrile. Still complaining of abdominal pain though no worsening. No nausea. No vomiting. No chest pain, shortness of breath. No cough. No diarrhea. PHYSICAL EXAMINATION: Blood pressure is 129/60 with a pulse of 76, temperature 99.1. She is 94% on room air. General description is a middle-aged female lying in bed in no distress. Respiratory system: Unlabored breathing. Clear to auscultation anteriorly. Heart S1, S2. Regular rate and rhythm. ABDOMEN: Soft, slightly distended. Minimal tenderness. Extremities: No edema of the feet. LABS: Hemoglobin is 10.8, white count 5.8. BUN of 30, creatinine 0.61. The abdominal fluid cultures currently pending. Biopsy report is currently pending. DIAGNOSTIC IMPRESSION AND PLAN: Patient with tuboovarian abscess status post drainage and lymph node biopsy. Culture has been negative so far. The biopsy report is currently pending. The patient on Zosyn to continue. Follow up blood cultures, clinical condition to adjust antibiotic further if needed. Continue supportive care. MMODL / IJN: [id number] /
[2018-11-01 08:34] LABS: Basophils % (A) 0 %; Eosinophils # (A) 0.1 k/uL (0-0.7); Eosinophils % (A) 2 %; HGB 10.9 gm/dL (11.4-16.0); Lymphocytes % (A) 16 %; MCH 30.2 pg (25.0-35.0); MCV 91.5 fL (80.0-100.0); Mean Platelet Volume 6.6; Monocytes # (A) 0.4 k/uL (0-1.0); Monocytes % (A) 6 %; Neutrophils # (A) 4.4 k/uL (1.3-7.7); Neutrophils % (A) 74 %; Platelet Count 304 k/uL (150-450); RBC 3.61 m/uL (3.80-5.40); RDW 13.6 % (11.5-15.5); WBC 5.9 k/uL (3.8-10.6)
[2018-11-01 09:13] LABS: African American GFR (CKD) >90 (>60 ml/min/1.73 sqM); Anion Gap 7 mmol/L; Blood Urea Nitrogen 2 mg/dL (7-17); Carbon Dioxide 25 mmol/L (22-30); Chloride 108 mmol/L (98-107); Glucose 108 mg/dL (74-99); Potassium 3.1 mmol/L (3.5-5.1); Sodium 140 mmol/L (137-145)
[2018-11-01] MEDS: METOPROLOL TARTRATE 25 MG TAB PO SCH ×2 (09:21→20:26)
[2018-11-01] MEDS: MAGNESIUM OXIDE 400 MG TAB PO SCH (09:22)
[2018-11-01] MEDS: DOCUSATE 100 MG CAP PO SCH ×2 (09:22→20:26)
[2018-11-01] MEDS: MORPHINE SULFATE 4 MG/ML SYRINGE IV PRN ×2 (09:22→15:35)
[2018-11-01] MEDS: SERTRALINE 100 MG TAB PO SCH (09:22)
[2018-11-01] MEDS: ENOXAPARIN 40 MG/0.4 ML SYRINGE SQ SCH (09:22)
[2018-11-01] MEDS: PANTOPRAZOLE 40 MG TABLET PO SCH (09:22)
[2018-11-01] MEDS: SIMETHICONE 40 MG/0.6 ML DROPS 2,000 MG/30 ML BOTTLE PO SCH ×4 (09:36→20:25)
[2018-11-01] MEDS ORDERED: Acetaminophen-Codeine 300-30mg TAB PO PRN (12:20)
[2018-11-01] MEDS ORDERED: diphenhydrAMINE 25 MG CAP PO PRN (12:47)
--- NOTE | 2018-11-01 14:19 | P.PN ---
Progress Note - Text Progress Note Date: 11/01/18 Patient still has some complaints of pain. She's had some minimal flatus. On exam her vital signs are stable. Her abdomen soft. Patient encouraged to ambulate.. We anticipated discharged home tomorrow.
[2018-11-01] MEDS ORDERED: oxyCODONE-APAP 7.5-325MG 1 EACH TAB PO PRN (18:19)
[2018-11-01] MEDS: clonazePAM 0.5 MG TAB PO SCH (20:26)
[2018-11-01] MEDS: AMITRIPTYLINE HCL 25 MG TAB PO SCH (20:26)
[2018-11-01] MEDS: ATORVASTATIN 20 MG TAB PO SCH (20:26)
--- NOTE | 2018-11-01 22:35 | P.PN ---
Subjective Progress Note Date: 10/31/18 Principal diagnosis: Intra-abdominal abscess. Patient is a 63-year-old female with a known history of non-Hodgkin's lymphoma diagnosed in 2006, anxiety, osteoarthritis and hyperlipidemia came to ER with complaints of right lower quadrant abdominal pain. Patient has been having sharp pains for the past 1 week. Patient also recently having symptoms of constipation. Patient thought that she may be having appendicitis and came to ER for evaluation. Denied any complaints of fever or chills. No radiation of the pain. Pain is constant otherwise. No complaints of nausea vomiting or diarrhea. No fever no chills. No chest pain or shortness of breath. Patient is able to pass gas but had only small bowel movements. Denied any history of abdominal surgeries or diverticulitis. CT of the abdominal pelvis showed low density collection right anterior iliac region suspicious for abscess likely from the cecum. The appendix however appears within normal limits. Some iliac lymphadenopathy may be in this region. Cholelithiasis and sludge within the gallbladder. Patient has been afebrile and laboratory data reviewed. 10/27/2018 Patient is still complaining of right lower quadrant abdominal pain. No fever no chills. Continued on IV antibiotics in the form of Zosyn. Repeat CT of the abdominal pelvis was done showed right lower quadrant mixed intensity mass has mostly soft tissue density which is increasing in size. General surgery is following No chest pain or shortness of breath. 10/28/2018 Patient was taken to or today for expiratory laparotomy due to increasing in size of soft tissue density. she was noticed to have possible tubo-ovarian abscess patient is status post right oophorectomy lymph node biopsy and cultures which are currently pending. Patient is being continued on Zosyn now. Follow-up culture reports. 10/29/2018 Patient is status post right salpingo-oophorectomy and right pelvic lymph node biopsy. Pain is fairly controlled with epidural now. Denied any passing flatus or bowel movement. Complaining of Abdominal discomfort. Patient is hypotensive overnight and will be continued on IV fluids. Cultures are pending at this time. Continued on IV antibiotics in the form of Zosyn. Hemoglobin level is 10.8. WBC 6.1. 10/30/2018 Patient says that she is passing flatus. started on oral diet. Abdominal discomfort is improving. Otherwise patient is being continued on antibiotics in the form of Zosyn. No fever no chills. No chest pain or short of breath. 10/31/2018 Patient is tolerating oral diet. Did have a small bowel movement. No complaints of worsening abdominal pain. No chest pain or shortness of breath. Patient is being continued on antibiotics the form of Zosyn. General surgery is on board. Able to ambulate in the hallway. Current medications reviewed. Objective - Vital Signs Vital signs: Vital Signs Temp 99.1 F 10/31/18 15:00 Pulse 76 10/31/18 15:00 Resp 16 10/31/18 15:00 BP 129/60 10/31/18 15:00 Pulse Ox 94 L 10/31/18 15:00 Intake & Output 10/30/18 10/31/18 10/31/18 18:59 06:59 18:59 Intake Total 1440 840 480 Output Total 700 110 Balance 740 730 480 Intake: Intake, IV Titration 960 Amount Sodium Chloride 0.9% 1, 960 000 ml @ 120 mls/hr IV . Q8H20M [facility] Rx#:[id number] Oral 480 840 480 Output: Drainage 100 110 Right Abdomen 100 110 Urine 600 Uretheral ([place]) 600 Other: # Voids 2 2 - Exam PHYSICAL EXAMINATION: Patient is lying in the bed comfortably, no acute distress, awake alert and oriented.. HEENT: Normocephalic. Neck is supple. Pupils reactive. Nostrils clear. Oral cavity is moist. Ears reveal no drainage. Neck reveals no JVD, carotid bruits, or thyromegaly. CHEST EXAMINATION: Trachea is central. Symmetrical expansion. Lung newsome clear to auscultation and percussion. CARDIAC: Normal S1, S2 with no gallops. No murmurs ABDOMEN: Soft. Soreness at the surgical site.. No guarding or rigidity. Bowel sounds diminished. No organomegaly. No abdominal bruits. Extremities: reveal no edema. No clubbing or cyanosis Neurologically awake, alert, oriented x3 with well-coordinated movements. No focal deficits noted Skin: No rash or skin lesions. Psychiatric: Coperative. Nonsuicidal Musculoskeletal: No joint swelling or deformity. Normal range of motion. - Labs CBC & Chem 7: 11/01/18 08:10 11/01/18 08:10 Labs: Abnormal Lab Results - Last 24 Hours (Table) 10/31/18 10/31/18 Range/Units 07:17 07:17 RBC 3.60 L (3.80-5.40) m/uL Hgb 10.9 L (11.4-16.0) gm/dL Hct 33.0 L (34.0-46.0) % Potassium 3.3 L (3.5-5.1) mmol/L Chloride 109 H (98-107) mmol/L BUN 3 L (7-17) mg/dL Glucose 105 H (74-99) mg/dL Calcium 8.2 L (8.4-10.2) mg/dL Microbiology - Last 24 Hours (Table) 10/28/18 12:18 Anaerobic Culture - Preliminary Lymph Node Assessment and Plan Assessment: Right lower quadrant abdominal pain. Possibly due to right Tubo ovarian abscess. Status post right salpingo-oophorectomy. Cecal abscess as per CT abdomen and pelvis. 4.3 x 3.7 cm Cholelithiasis and gallbladder sludge without acute cholecystitis Chronic constipation likely due to opiate use Hyperlipidemia History of non-Hodgkin's lymphoma diagnosed in 2006 Anxiety/depression and palpitations Nicotine addiction currently everyday smoker DVT prophylaxis with heparin subcu Plan: Patient be continued on IV hydration with normal saline. Continue with antibiotics in the form of Zosyn. Currently on a EDUCATION AND TRAINING COORDINATOR for pain management.. Follow-up culture reports. No fever. no leukocytosis. Monitor H&H ID is following. Continue with home medications for anxiety and depression. Smoking cessation was counseled. Gen. surgery recommendations. Will continue to follow closely. Time with Patient: Greater than 30
--- NOTE | 2018-11-01 22:35 | P.PN ---
Subjective Progress Note Date: 10/30/18 Principal diagnosis: Intra-abdominal abscess. Patient is a 63-year-old female with a known history of non-Hodgkin's lymphoma diagnosed in 2006, anxiety, osteoarthritis and hyperlipidemia came to ER with complaints of right lower quadrant abdominal pain. Patient has been having sharp pains for the past 1 week. Patient also recently having symptoms of constipation. Patient thought that she may be having appendicitis and came to ER for evaluation. Denied any complaints of fever or chills. No radiation of the pain. Pain is constant otherwise. No complaints of nausea vomiting or diarrhea. No fever no chills. No chest pain or shortness of breath. Patient is able to pass gas but had only small bowel movements. Denied any history of abdominal surgeries or diverticulitis. CT of the abdominal pelvis showed low density collection right anterior iliac region suspicious for abscess likely from the cecum. The appendix however appears within normal limits. Some iliac lymphadenopathy may be in this region. Cholelithiasis and sludge within the gallbladder. Patient has been afebrile and laboratory data reviewed. 10/27/2018 Patient is still complaining of right lower quadrant abdominal pain. No fever no chills. Continued on IV antibiotics in the form of Zosyn. Repeat CT of the abdominal pelvis was done showed right lower quadrant mixed intensity mass has mostly soft tissue density which is increasing in size. General surgery is following No chest pain or shortness of breath. 10/28/2018 Patient was taken to or today for expiratory laparotomy due to increasing in size of soft tissue density. she was noticed to have possible tubo-ovarian abscess patient is status post right oophorectomy lymph node biopsy and cultures which are currently pending. Patient is being continued on Zosyn now. Follow-up culture reports. 10/29/2018 Patient is status post right salpingo-oophorectomy and right pelvic lymph node biopsy. Pain is fairly controlled with epidural now. Denied any passing flatus or bowel movement. Complaining of Abdominal discomfort. Patient is hypotensive overnight and will be continued on IV fluids. Cultures are pending at this time. Continued on IV antibiotics in the form of Zosyn. Hemoglobin level is 10.8. WBC 6.1. 10/30/2018 Patient says that she is passing flatus. started on oral diet. Abdominal discomfort is improving. Otherwise patient is being continued on antibiotics in the form of Zosyn. No fever no chills. No chest pain or short of breath. Current medications reviewed. Objective - Vital Signs Vital signs: Vital Signs Temp 99.1 F 10/30/18 15:00 Pulse 73 10/30/18 15:00 Resp 16 10/30/18 15:00 BP 112/69 10/30/18 15:00 Pulse Ox 94 L 10/30/18 15:00 Intake & Output 10/29/18 10/30/18 10/30/18 18:59 06:59 18:59 Intake Total 1340 1440 1440 Output Total 485 1360 650 Balance 855 80 790 Intake: Intake, IV Titration 1100 1200 960 Amount Piperacillin-Tazobactam 3 100 .375 gm In Sodium Chloride 0.9% 100 ml @ 25 mls/hr IVPB Q8HR [facility] Rx# :[id number] Sodium Chloride 0.9% 1, 1200 960 000 ml @ 120 mls/hr IV . Q8H20M [facility] Rx#:[id number] Sodium Chloride 0.9% 1, 1000 000 ml @ 999 mls/hr IV . Q1H1M [facility] Rx#:[id number] Oral 240 240 480 Output: Drainage 60 160 50 Right Abdomen 60 160 50 Urine 425 1200 600 Uretheral ([place]) 1200 600 Other: Voiding Method Indwelling Catheter Indwelling Catheter - Exam PHYSICAL EXAMINATION: Patient is lying in the bed comfortably, no acute distress, awake alert and oriented.. HEENT: Normocephalic. Neck is supple. Pupils reactive. Nostrils clear. Oral cavity is moist. Ears reveal no drainage. Neck reveals no JVD, carotid bruits, or thyromegaly. CHEST EXAMINATION: Trachea is central. Symmetrical expansion. Lung newsome clear to auscultation and percussion. CARDIAC: Normal S1, S2 with no gallops. No murmurs ABDOMEN: Soft. Soreness at the surgical site.. No guarding or rigidity. Bowel sounds diminished. No organomegaly. No abdominal bruits. Extremities: reveal no edema. No clubbing or cyanosis Neurologically awake, alert, oriented x3 with well-coordinated movements. No focal deficits noted Skin: No rash or skin lesions. Psychiatric: Coperative. Nonsuicidal Musculoskeletal: No joint swelling or deformity. Normal range of motion. - Labs CBC & Chem 7: 11/01/18 08:10 11/01/18 08:10 Labs: Abnormal Lab Results - Last 24 Hours (Table) 10/30/18 10/30/18 Range/Units 07:29 07:29 RBC 3.57 L (3.80-5.40) m/uL Hgb 10.9 L (11.4-16.0) gm/dL Hct 33.2 L (34.0-46.0) % Chloride 110 H (98-107) mmol/L BUN 4 L (7-17) mg/dL Calcium 8.1 L (8.4-10.2) mg/dL Microbiology - Last 24 Hours (Table) 10/28/18 12:18 Anaerobic Culture - Preliminary Lymph Node 10/28/18 12:18 Gram Stain - Final Lymph Node Wound Culture - Final Assessment and Plan Assessment: Right lower quadrant abdominal pain. Possibly due to right Tubo ovarian abscess. Status post right salpingo-oophorectomy. Cecal abscess as per CT abdomen and pelvis. 4.3 x 3.7 cm Cholelithiasis and gallbladder sludge without acute cholecystitis Chronic constipation likely due to opiate use Hyperlipidemia History of non-Hodgkin's lymphoma diagnosed in 2006 Anxiety/depression and palpitations Nicotine addiction currently everyday smoker DVT prophylaxis with heparin subcu Plan: Patient be continued on IV hydration with normal saline. Continue with antibiotics in the form of Zosyn. Currently on a SHORT ORDER COOK for pain management.. Follow-up culture reports. No fever. no leukocytosis. Monitor H&H ID is following. Continue with home medications for anxiety and depression. Smoking cessation was counseled. Gen. surgery recommendations. Will continue to follow closely. Time with Patient: Greater than 30
[2018-11-01] MEDS ORDERED: Potassium Replacement Protocol 1 EACH MISC MISCELLANE PRN (22:36)
--- NOTE | 2018-11-01 22:38 | P.PN ---
Subjective Progress Note Date: 11/01/18 Principal diagnosis: Intra-abdominal abscess. Patient is a 63-year-old female with a known history of non-Hodgkin's lymphoma diagnosed in 2006, anxiety, osteoarthritis and hyperlipidemia came to ER with complaints of right lower quadrant abdominal pain. Patient has been having sharp pains for the past 1 week. Patient also recently having symptoms of constipation. Patient thought that she may be having appendicitis and came to ER for evaluation. Denied any complaints of fever or chills. No radiation of the pain. Pain is constant otherwise. No complaints of nausea vomiting or diarrhea. No fever no chills. No chest pain or shortness of breath. Patient is able to pass gas but had only small bowel movements. Denied any history of abdominal surgeries or diverticulitis. CT of the abdominal pelvis showed low density collection right anterior iliac region suspicious for abscess likely from the cecum. The appendix however appears within normal limits. Some iliac lymphadenopathy may be in this region. Cholelithiasis and sludge within the gallbladder. Patient has been afebrile and laboratory data reviewed. 10/27/2018 Patient is still complaining of right lower quadrant abdominal pain. No fever no chills. Continued on IV antibiotics in the form of Zosyn. Repeat CT of the abdominal pelvis was done showed right lower quadrant mixed intensity mass has mostly soft tissue density which is increasing in size. General surgery is following No chest pain or shortness of breath. 10/28/2018 Patient was taken to or today for expiratory laparotomy due to increasing in size of soft tissue density. she was noticed to have possible tubo-ovarian abscess patient is status post right oophorectomy lymph node biopsy and cultures which are currently pending. Patient is being continued on Zosyn now. Follow-up culture reports. 10/29/2018 Patient is status post right salpingo-oophorectomy and right pelvic lymph node biopsy. Pain is fairly controlled with epidural now. Denied any passing flatus or bowel movement. Complaining of Abdominal discomfort. Patient is hypotensive overnight and will be continued on IV fluids. Cultures are pending at this time. Continued on IV antibiotics in the form of Zosyn. Hemoglobin level is 10.8. WBC 6.1. 10/30/2018 Patient says that she is passing flatus. started on oral diet. Abdominal discomfort is improving. Otherwise patient is being continued on antibiotics in the form of Zosyn. No fever no chills. No chest pain or short of breath. 10/31/2018 Patient is tolerating oral diet. Did have a small bowel movement. No complaints of worsening abdominal pain. No chest pain or shortness of breath. Patient is being continued on antibiotics the form of Zosyn. General surgery is on board. Able to ambulate in the hallway. 11/01/2018 Patient denied any new complaints today. Patient is passing flatus. Denied any bowel movement today. Tolerating oral diet. No leukocytosis. Patient is otherwise hypokalemic patient be replaced. Currently on IV antibiotics the form of Zosyn. No other acute overnight issues. Anticipate discharge in next 24 hours with more clinical improvement and final ID recommendations regarding antibiotics.. Current medications reviewed. Objective - Vital Signs Vital signs: Vital Signs Temp 98.9 F 11/01/18 19:01 Pulse 74 11/01/18 19:01 Resp 18 11/01/18 19:01 BP 130/71 11/01/18 19:01 Pulse Ox 96 11/01/18 19:01 Intake & Output 11/01/18 11/01/18 11/02/18 06:59 18:59 06:59 Intake Total 580 480 200 Output Total 110 Balance 580 370 200 Weight 67.404 kg Intake: Intake, IV Titration 340 Amount IV Fluid Continuation 1, 240 000 ml @ 0 mls/hr IV [facility] Rx#:[id number] Piperacillin-Tazobactam 3 100 .375 gm In Sodium Chloride 0.9% 100 ml @ 25 mls/hr IVPB Q8HR [facility] Rx# :[id number] Oral 240 480 200 Output: Drainage 110 Right Abdomen 110 Other: Voiding Method Indwelling Catheter Toilet # Voids 1 2 - Exam PHYSICAL EXAMINATION: Patient is lying in the bed comfortably, no acute distress, awake alert and or iented.. HEENT: Normocephalic. Neck is supple. Pupils reactive. Nostrils clear. Oral cavity is moist. Ears reveal no drainage. Neck reveals no JVD, carotid bruits, or thyromegaly. CHEST EXAMINATION: Trachea is central. Symmetrical expansion. Lung newsome clear to auscultation and percussion. CARDIAC: Normal S1, S2 with no gallops. No murmurs ABDOMEN: Soft. Soreness at the surgical site.. No guarding or rigidity. Bowel sounds diminished. No organomegaly. No abdominal bruits. Extremities: reveal no edema. No clubbing or cyanosis Neurologically awake, alert, oriented x3 with well-coordinated movements. No focal deficits noted Skin: No rash or skin lesions. Psychiatric: Coperative. Nonsuicidal Musculoskeletal: No joint swelling or deformity. Normal range of motion. - Labs CBC & Chem 7: 11/01/18 08:10 11/01/18 08:10 Labs: Abnormal Lab Results - Last 24 Hours (Table) 11/01/18 11/01/18 Range/Units 08:10 08:10 RBC 3.61 L (3.80-5.40) m/uL Hgb 10.9 L (11.4-16.0) gm/dL Hct 33.0 L (34.0-46.0) % Potassium 3.1 L (3.5-5.1) mmol/L Chloride 108 H (98-107) mmol/L BUN 2 L (7-17) mg/dL Glucose 108 H (74-99) mg/dL Calcium 8.0 L (8.4-10.2) mg/dL Microbiology - Last 24 Hours (Table) 10/28/18 12:18 Anaerobic Culture - Final Lymph Node Assessment and Plan Assessment: Right lower quadrant abdominal pain. Possibly due to right Tubo ovarian abscess. Status post right salpingo-oophorectomy. Cecal abscess as per CT abdomen and pelvis. 4.3 x 3.7 cm Cholelithiasis and gallbladder sludge without acute cholecystitis Chronic constipation likely due to opiate use Hyperlipidemia History of non-Hodgkin's lymphoma diagnosed in 2006 Anxiety/depression and palpitations Nicotine addiction currently everyday smoker DVT prophylaxis with heparin subcu Plan: Hold IV hydration. Tolerating oral diet. Continue with antibiotics in the form of Zosyn. Denied pain management. Follow-up culture reports. No fever. no leukocytosis. Monitor H&H ID is following. Continue with home medications for anxiety and depression. Smoking cessation was counseled. Gen. surgery recommendations. Will continue to follow closely. Time with Patient: Greater than 30
--- NOTE | 2018-11-01 22:59 | PN ---
PROGRESS NOTE DATE OF SERVICE: 11/01/2018 REASON FOR FOLLOWUP: Tubo-ovarian abscess. INTERVAL HISTORY: The patient is currently afebrile. The patient has been breathing comfortably. Denies having any chest pain. Still some abdominal discomfort but no worsening. No nausea, no vomiting, no diarrhea. PHYSICAL EXAMINATION: Blood pressure 130/74 with a pulse of 74, temperature 98.9. She is 96% on room air. General description is a middle-aged female up in the bed in no distress. RESPIRATORY SYSTEM: Unlabored breathing. Clear to auscultation anteriorly. HEART: S1, S2. Regular rate and rhythm. ABDOMEN: Soft. No tenderness. LABS: Hemoglobin is 10.9, white count 5.9, BUN of 2, creatinine 0.58. Abdominal cultures remain negative. DIAGNOSTIC IMPRESSION AND PLAN: Patient with a tubo-ovarian abscess, status post drainage. Lymph node biopsy is still pending. The patient is currently covered with Zosyn, as no resistant organism has been grown. Will give a short course of oral Cipro and Flagyl on discharge. Continue with supportive care. MMODL / IJN: [id number] /
[2018-11-02] MEDS: POTASSIUM CHLORIDE ER 20 MEQ TAB.ER PO SCH ×3 (00:22→04:31)
[2018-11-02] MEDS: POTASSIUM CHLORIDE 20 MEQ in WATER FOR INJECTION 1 100ML.BAG IVPB SCH ×3 (00:22→04:31)
--- NOTE | 2018-11-02 01:07 | P.PN ---
Progress Note - Text Progress Note Date: 11/01/18 Presenting complaint: Abdominal pain Interval history: Patient presented with abdominal pain. On October 28 underwent right salpingo- oophorectomy by Dr. Brush. Today-patient ambulate in the hallway. On a regular diet. Has been passing flatus. No bowel movement. Has a ROLANDO drain with a fair amount of drainage. No nausea vomiting. No fever no chills. Some abdominal discomfort is present. Review of systems: Was done for constitutional, cardiovascular, GI, pulmonary. relevant finding as above Active Medications Acetaminophen/Codeine Phosphate (Tylenol #3) 2 each PO Q6HR PRN PRN Reason: Pain Amitriptyline HCl (Elavil) 25 mg PO [facility] Last Admin: 11/01/18 20:26 Dose: 25 mg Documented by: Atorvastatin Calcium (Lipitor) 20 mg PO [facility] Last Admin: 11/01/18 20:26 Dose: 20 mg Documented by: Clonazepam (Klonopin) 0.25 mg PO [facility] Last Admin: 11/01/18 20:26 Dose: 0.25 mg Documented by: Diphenhydramine HCl (Benadryl) 25 mg PO Q6HR PRN PRN Reason: Itching Docusate Sodium (Colace) 100 mg PO BID [facility] Last Admin: 11/01/18 20:26 Dose: 100 mg Documented by: Enoxaparin Sodium (Lovenox) 40 mg SQ DAILY [facility] Last Admin: 11/01/18 09:22 Dose: 40 mg Documented by: Ropivacaine 400 mg/Hydromorphone HCl 5 mg/ Sodium Chloride 250 mls @ 0 mls/hr EPIDURAL .Q0M PRN; Protocol PRN Reason: Pain Control Last Admin: 10/30/18 05:14 Dose: 4 mls/hr Documented by: Potassium Chloride 20 meq/ IV (Solution) 100 mls @ 50 mls/hr IVPB Q2H [facility] Stop: 11/02/18 05:44 Last Admin: 11/02/18 00:22 Dose: 50 mls/hr Documented by: Magnesium Oxide (Mag-Ox) 200 mg PO 1200 [facility] Last Admin: 11/01/18 09:22 Dose: 200 mg Documented by: Metoprolol Tartrate (Lopressor) 25 mg PO BID [facility] Last Admin: 11/01/18 20:26 Dose: 25 mg Documented by: Miscellaneous Information (Potassium Per Protocol) 1 each MISCELLANE DAILY PRN; Protocol PRN Reason: Per Protocol Morphine Sulfate (Morphine Sulfate (Inj)) 4 mg IV Q4HR PRN PRN Reason: Severe Pain Last Admin: 11/01/18 15:35 Dose: 4 mg Documented by: Naloxone HCl (Narcan) 0.2 mg IV Q2M PRN PRN Reason: Opioid Reversal Naloxone HCl (Narcan) 0.2 mg IV Q2M PRN PRN Reason: Opioid Reversal Ondansetron HCl (Zofran) 4 mg IVP Q8HR PRN PRN Reason: Nausea And Vomiting Oxycodone/Acetaminophen (Percocet 7.5-325) 1 each PO Q6HR PRN PRN Reason: Pain Last Admin: 11/02/18 00:29 Dose: 1 each Documented by: Pantoprazole Sodium (Protonix) 40 mg PO DAILY [facility] Last Admin: 11/01/18 09:22 Dose: 40 mg Documented by: Potassium Chloride (K-Dur 20) 20 meq PO Q2HR [facility] Stop: 11/02/18 04:01 Last Admin: 11/02/18 00:22 Dose: 20 meq Documented by: Sertraline HCl (Zoloft) 150 mg PO DAILY [facility] Last Admin: 11/01/18 09:22 Dose: 150 mg Documented by: Simethicone (Mylicon Drops) 40 mg PO QID [facility] Last Admin: 11/01/18 20:25 Dose: 40 mg Documented by: On examination: VITAL SIGNS: 98.6, 69, 15, 124/72, 94% room air GENERAL APPEARANCE: Sitting up, not in distress. HEENT: Normal external appearance of nose and ear. Oral cavity normal EYES: Pupils equal. Conjunctiva normal. NECK: JVD not raised. Mass not palpable. RESPIRATORY: Respiratory effort normal. Lungs clear to auscultation. CARDIOVASCULAR: First and second sounds normal. No edema. ABDOMEN: Slightly distended, ROLANDO drain in place. Some tenderness present. Bowel sounds are sluggish. Dressing in place.. PSYCHIATRY: Alert and oriented x3. Mood and affect normal. Investigations: White count 5.19 globin 10.9 potassium 3.1 creatinine 0.58 Assessment: -Right salpingo-oophorectomy, pathology pending -Normocytic anemia -Hypokalemia -Hyperlipidemia -Chronic nicotine dependence patient cigarette smoker Plan: Currently current medication treatment plan. Continue IV fluids. Replace potassium. Patient on a regular diet. Follow with surgery. Follow electrolytes in the morning. Care was discussed with the patient. Thank you Dr. Brush
[2018-11-02 03:43] VITALS: RESP 15
[2018-11-02 07:16] VITALS: BP 126/64; PULSE 70; TEMP 98.2
[2018-11-02] MEDS: ENOXAPARIN 40 MG/0.4 ML SYRINGE SQ SCH (07:41)
[2018-11-02] MEDS: SERTRALINE 100 MG TAB PO SCH (07:42)
[2018-11-02] MEDS: PANTOPRAZOLE 40 MG TABLET PO SCH (07:42)
[2018-11-02] MEDS: METOPROLOL TARTRATE 25 MG TAB PO SCH (07:42)
[2018-11-02] MEDS: DOCUSATE 100 MG CAP PO SCH (07:42)
[2018-11-02] MEDS: SIMETHICONE 40 MG/0.6 ML DROPS 2,000 MG/30 ML BOTTLE PO SCH ×2 (07:43→11:31)
[2018-11-02 09:16] LABS: Basophils % (A) 1 %; Eosinophils # (A) 0.1 k/uL (0-0.7); Eosinophils % (A) 2 %; HCT 33.2 % (34.0-46.0); HGB 10.9 gm/dL (11.4-16.0); Lymphocytes # (A) 0.8 k/uL (1.0-4.8); Lymphocytes % (A) 15 %; MCH 30.1 pg (25.0-35.0); MCHC 32.9 g/dL (31.0-37.0); MCV 91.5 fL (80.0-100.0); Mean Platelet Volume 6.5; Monocytes # (A) 0.3 k/uL (0-1.0); Monocytes % (A) 6 %; Neutrophils # (A) 4.3 k/uL (1.3-7.7); Neutrophils % (A) 75 %; Platelet Count 294 k/uL (150-450); RBC 3.62 m/uL (3.80-5.40); RDW 13.7 % (11.5-15.5); WBC 5.7 k/uL (3.8-10.6)
[2018-11-02 09:30] LABS: African American GFR (CKD) >90 (>60 ml/min/1.73 sqM); Anion Gap 6 mmol/L; Blood Urea Nitrogen 2 mg/dL (7-17); Calcium 8.1 mg/dL (8.4-10.2); Carbon Dioxide 24 mmol/L (22-30); Chloride 109 mmol/L (98-107); Glucose 113 mg/dL (74-99); Magnesium 1.6 mg/dL (1.6-2.3); Sodium 139 mmol/L (137-145)
[2018-11-02] MEDS: MAGNESIUM OXIDE 400 MG TAB PO SCH (11:31)
--- NOTE | 2018-11-02 12:00 | CDI ---
Documentation Clarification Form Date: 11/02/2018 11:50:28 AM From: Honey JUSTIN Reddy, CCDS Admit Date: 10/25/2018 3:11:00 PM Patient Name: Elizabeth Quiroz Visit Number: [id number] Discharge Date: ATTENTION: The Clinical Documentation Specialists (CDI) and [facility] Coding Staff appreciate your assistance in clarifying documentation. Please respond to the clarification below the line at the bottom and electronically sign. The CDI & [facility] Coding staff will review the response and follow-up if needed. Please note: Queries are made part of the Legal Health Record. If you have any questions, please contact the author of this message via ITS. Dr. Rohan Leung: A diagnosis of anemia lacks specificity to accurately reflect your patients severity of condition and clarification is needed. Per the 11/01 PN: "Normocytic anemia" is documented. Patient also had drop in hematocrit. History/Risk Factors: Constipation due to chronic opiod use due to back pain, non-Hodgkin's lymphoma, Anxiety, OA, Hyperlipidemia, Glaucoma and smoker. Clinical indicators: Presented with right lower quadrant abdominal pain, found to have a right tubo-ovarian abscess status post right salpingo-oophorectomy & right pelvic lymph node biopsy & culture. Hemoglobin: 13.1 - 11.6 - 10.8* - 10.9* - 10.9* - 10.9* - 10.9* Hematocrit: 40.0 - 37.1 - 34.0 - 33.2* - 33.0* - 33.0* - 33.2* Treatment: IV fluids, IV antiobiotics, daily H & H. In order to capture the severity of condition, please clarify the type of anemia and etiology if known: Acute blood loss anemia Acute on chronic blood loss anemia Chronic blood loss anemia Iron deficiency anemia Hemolytic anemia Drug induced anemia Nutritional anemia Unable to determine Other, please specify (Last Revision: December 2016) Acute blood loss anemia as expected from surgery MTDD
--- NOTE | 2018-11-02 12:14 | P.DS ---
Providers Date of admission: 10/25/18 15:11 Expected date of discharge: 11/02/18 Attending physician: Fahad Brush Consults: 10/28/18 12:37 Consult Physician Routine Consulting Provider: Marcelina Key Consult Reason/Comments: Tubo-ovarian abscess? Do you want consulting provider notified?: Yes Primary care physician: Frank Weller Hospital Course: This a 63-year-old female who is minimal hospital with possible cecal abscess. Patient underwent exploratory laparotomy. She is found have a tubo-ovarian abscess. She underwent salpingo-therapy. Please see hospital chart for details. Patient Condition at Discharge: Fair Plan - Discharge Summary Discharge Rx Participant: Yes New Discharge Prescriptions: New Ciprofloxacin HCl [Cipro] 500 mg PO Q12HR #20 tablet metroNIDAZOLE [Flagyl] 500 mg PO Q8HR #30 tab Continue HYDROcodone/APAP 7.5-325MG [[place] 7.5-325] 0.5 - 1 tab PO TID PRN PRN Reason: Pain No Action Sertraline [Zoloft] 150 mg PO DAILY Vitamin E (Dl,Tocopheryl Acet) [Vitamin E] 400 unit PO DAILY Ascorbic Acid [Vitamin C] 500 mg PO DAILY Aspirin EC [Ecotrin Low Dose] 81 mg PO DAILY Metoprolol Tartrate [Lopressor] 25 mg PO BID Calcium Carbonate [Calcium] 600 mg PO DAILY Biotin 5 mg PO DAILY Vitamin C/Biotin [Hair, Skin and Nails] 1 tab PO DAILY Melatonin 20 mg PO HS clonazePAM [KlonoPIN] 0.25 mg PO HS Simvastatin [Zocor] 40 mg PO HS Amitriptyline HCl [Elavil] 25 mg PO HS Magnesium 200 mg PO DAILY Discharge Medication List Sertraline [Zoloft] 150 mg PO DAILY 06/05/14 [History] Ascorbic Acid [Vitamin C] 500 mg PO DAILY 06/07/14 [History] Vitamin E (Dl,Tocopheryl Acet) [Vitamin E] 400 unit PO DAILY 06/07/14 [History] Aspirin EC [Ecotrin Low Dose] 81 mg PO DAILY 09/19/15 [History] Metoprolol Tartrate [Lopressor] 25 mg PO BID 10/08/15 [History] Amitriptyline HCl [Elavil] 25 mg PO HS 10/25/18 [History] Biotin 5 mg PO DAILY 10/25/18 [History] Calcium Carbonate [Calcium] 600 mg PO DAILY 10/25/18 [History] HYDROcodone/APAP 7.5-325MG [[place] 7.5-325] 0.5 - 1 tab PO TID PRN 10/25/18 [History] Magnesium 200 mg PO DAILY 10/25/18 [History] Melatonin 20 mg PO HS 10/25/18 [History] Simvastatin [Zocor] 40 mg PO HS 10/25/18 [History] Vitamin C/Biotin [Hair, Skin and Nails] 1 tab PO DAILY 10/25/18 [History] clonazePAM [KlonoPIN] 0.25 mg PO HS 10/25/18 [History] Ciprofloxacin HCl [Cipro] 500 mg PO Q12HR #20 tablet 11/02/18 [Rx] metroNIDAZOLE [Flagyl] 500 mg PO Q8HR #30 tab 11/02/18 [Rx] Follow up Appointment(s)/Referral(s): Frank Weller MD [Primary Care Provider] - 11/22/18 8:20 am [facility], [NON-STAFF] - Marcelina Key MD [STAFF PHYSICIAN] - 1 Week Fahad Brush MD [STAFF PHYSICIAN] - 11/11/18 3:10 pm Activity/Diet/Wound Care/Special Instructions: No driving while taking [place] No lifting over 10 pounds You may shower. No soaking or tub baths Very light activity until you are reevaluated at your follow up appointment with your surgeon Discharge Disposition: HOME SELF-CARE
--- NOTE | 2018-11-02 15:54 | PN ---
PROGRESS NOTE DATE OF SERVICE: 11/02/2018. REASON FOR FOLLOWUP: Right tuboovarian abscess. INTERVAL HISTORY: The patient is currently afebrile. The patient has been breathing comfortably. Denies having any chest pain or any cough. No nausea, no vomiting. Abdominal pain has improved. No diarrhea. PHYSICAL EXAMINATION: Blood pressure 126/54 with a pulse of 73, temperature of 98.2. He is 96%. She is 96% on room air. General description is a middle aged female up in the bed in no distress. Respiratory system: Unlabored breathing. Clear to auscultation anteriorly. Heart S1, S2. Regular rate and rhythm. ABDOMEN: Soft, no tenderness. LABS: Hemoglobin 10, white count 5.7, BUN of 2, creatinine 0.58. Cultures have been negative so far. The biopsy report is currently pending. DIAGNOSTIC IMPRESSION AND PLAN: Patient with tuboovarian abscess status post drainage and lymph node biopsy, which is currently pending. Culture has been negative for resistant pathogen. Give a short course of oral ciprofloxacin and close outpatient followup. MMODL / IJN: [id number] /
--- NOTE | 2018-11-03 00:34 | P.PN ---
Progress Note - Text Progress Note Date: 11/02/18 Presenting complaint: Abdominal pain Interval history: Patient presented with abdominal pain. On October 28 underwent right salpingo- oophorectomy by Dr. Brush. Today-had a small bowel movement. Slight abdominal discomfort. No nausea vomiting. Up and about. Overall feeling much better. Review of systems: Was done for constitutional, cardiovascular, GI, pulmonary. relevant finding as above Current medications from today are reviewed in the electronic records from today's date On examination: VITAL SIGNS: 98.2, 70, 15, 126/ 4, 96% room air GENERAL APPEARANCE: Sitting up, not in distress. HEENT: Normal external appearance of nose and ear. Oral cavity normal EYES: Pupils equal. Conjunctiva normal. NECK: JVD not raised. Mass not palpable. RESPIRATORY: Respiratory effort normal. Lungs clear to auscultation. CARDIOVASCULAR: First and second sounds normal. No edema. ABDOMEN: Slightly distended, ROLANDO drain in place. Some tenderness present. Bowel sounds are sluggish. Dressing in place.. PSYCHIATRY: Alert and oriented x3. Mood and affect normal. Investigations: White count 5.7 hemoglobin 10.9 creatinine 0.58 Assessment: -Right salpingo-oophorectomy, pathology pending -Normocytic anemia -Hypokalemia, corrected -Hyperlipidemia -Chronic nicotine dependence patient cigarette smoker Plan: Patient condition improved. Feeling better. Decision about discharge per surgery. Thank you Dr. Brush
--- NOTE | 2018-11-04 09:14 | CDI ---
Documentation Clarification Form Date: 11/04/2018 9:00:05 AM From: Arlene Nelson Phone: If you have a question about this query, please contact Shanel Bolanos, Apparel Manufacture Instructor at [phone] Admit Date: 10/25/2018 3:11:00 PM Patient Name: Elizabeth Quiroz Visit Number: [id number] Discharge Date: 11/02/2018 1:44:00 PM ATTENTION: The Clinical Documentation Specialists (CDI) and [facility] Coding Staff appreciate your assistance in clarifying documentation. Please respond to the clarification below the line at the bottom and electronically sign. The CDI & [facility] Coding staff will review the response and follow-up if needed. Please note: Queries are made part of the Legal Health Record. If you have any questions, please contact the author of this message via ITS. Dr. Fahad Brush Path report confirms Non Hodgkins Lymphoma. D. Sum documents tubo-ovarian abscess. Please clarify patient's diagnosis. Patient history/risk factors: history NH lymphoma Clinical Indicators: ascites, inflamed RT tube/ovary and lymph node Radiology: abscess Vital Signs: 98.4 F, 86 BPM, 82/48, 94% on RA Other Clinical Indicators: Path report of lymph node is positive for B-Cell NH lymphoma Treatment: RT salpingo-oophorectomy AND lymph node biopsy In your professional opinion, can you please specify the acuity, laterality and neoplastic behavior based on the pathology report results? Other, please specify Unable to determine Unable to determine MTDD
== END 2018-11-02 13:44 | disposition home or self-care (01) | DRG 742 ==
LOC: EC 11:08 → 4SSUR 15:11
PROVIDERS: ADMIT Surgery; ATTEND Surgery
PROC: 0UT50ZZ Resection of Right Fallopian Tube, Open Approach (ICD-10-PCS; 2018-10-28)
PROC: 0UT00ZZ Resection of Right Ovary, Open Approach (ICD-10-PCS; 2018-10-28)
PROC: 07BC0ZX Excision of Pelvis Lymphatic, Open Approach, Diagnostic (ICD-10-PCS; principal; 2018-10-28 08:40)
DX: N70.93 Salpingitis and oophoritis, unspecified (principal); D62 Acute posthemorrhagic anemia; R18.8 Other ascites; E78.5 Hyperlipidemia, unspecified; E87.6 Hypokalemia; F17.210 Nicotine dependence, cigarettes, uncomplicated; F32.9 Major depressive disorder, single episode, unspecified; F41.9 Anxiety disorder, unspecified; H40.9 Unspecified glaucoma; I48.91 Unspecified atrial fibrillation; K80.20 Calculus of gallbladder without cholecystitis without obstruction; Z79.82 Long term (current) use of aspirin; Z79.891 Long term (current) use of opiate analgesic; Z79.899 Other long term (current) drug therapy; Z82.0 Family history of epilepsy and other diseases of the nervous system; Z82.49 Family history of ischemic heart disease and other diseases of the circulatory system; Z82.5 Family history of asthma and other chronic lower respiratory diseases; M19.90 Unspecified osteoarthritis, unspecified site; M54.9 Dorsalgia, unspecified; Z88.6 Allergy status to analgesic agent
CPT/HCPCS: 36415; 74176; 74177; 80048; 80053; 81003; 82150; 83690; 83735; 84132; 85025; 86850; 86900; 86901; 87070; 87075; 87205; 88307; 88341; 88342; 96361; 96365; 96375; 99285

== ENCOUNTER → 2018-11-20 | Outpatient (CLI) | payer OTHER ==
--- NOTE | 2018-11-22 07:22 | PE ---
EXAMINATION TYPE: PET CT fusion skull to thigh DATE OF EXAM: 11/20/2018 COMPARISON: CT abdomen and pelvis October 27, [address] October 25, 2018 HISTORY: Lymphoma diagnosed on excisional surgery right groin October 27, 2018 TECHNIQUE: Following the intravenous administration of 13.39 mCi of F-18 FDG, whole body images are performed from the skull base to the midthigh. Images are reviewed on the computer in the coronal, a xial, and sagittal planes. Reconstructed rotating images are created on independent workstation and reviewed on the computer. A noncontrast CT is performed in conjunction with the PET scan. SCAN: Initial Scan FINDINGS: Mean SUV mediastinum: 0.78 Mean SUV liver: 1.73 SKULL BASE AND NECK: No areas of suspicious hypermetabolic uptake. CHEST, MEDIASTINUM, AND HILAR REGION: Hypermetabolic nearly 1.0 cm left axillary lymph node axial dom ge 68 with max SUV of 4.00. Hypermetabolic prevascular subcentimeter lymph node anterior to the left subclavian vein axial image 72, max SUV of 3.87. Hypermetabolic 1.1 cm pleural-based nodule possible intramammary lymph node axial image 74, max SUV o f 8.19. Hypermetabolic 1.5 x 1.0 cm mediastinal lymph node just posterior to left sternum axial image 91, max SUV of 8.82. Some prominent slightly hypermetabolic but subcentimeter pericardial lymph nodes axial image 109 are noted. Hypermetabolic right inferior pleural probable subcentimeter focus axial image 137 has max SUV of 6.2 6. ABDOMEN AND PELVIS: Mild splenomegaly remains present measuring 14.2 cm long axis axial image 121. Mi ld hepatomegaly also felt present. No suspicious hypermetabolic foci in the liver or spleen are seen. There is however suspicious hypermetabolic subcentimeter soft tissue focus posterior to right paraspi nal muscle axial image 146, max SUV is 6.21. There are abnormal hypermetabolic retroperitoneal lymph nodes, confluent adenopathy fills aortocaval space axial image 168, max SUV is 12.78. For reference abnormal aortocaval lymph node measures 2.3 x 1.6 cm image 156, max SUV is 19.92. There are additional multiple hypermetabolic left paraaortic and right pericaval lymph nodes. Some hypermetabolic lymph nodes are present along the course of the common iliac chain vessels bilate rally. For reference enlarged hypermetabolic right sided lymph node has max SUV 14.87 axial image 184 . There is hypermetabolic left pelvic soft tissue nodule measuring 1.1 x 1.0 cm axial image 205, max ROSS V 5.81. There remains suspicious hypermetabolic right groin lymph nodes despite right groin excisional surger y. No hypermetabolic left groin lymph nodes. Mild symmetric hypermetabolic uptake bilateral gluteal muscles could reflect inflammatory change. OSSEOUS STRUCTURES: No areas of suspicious hypermetabolic uptake. OTHER CT: Dependent gallstones in gallbladder. Scar tissue with adjacent incisional hernia overlying the midline of the anterior abdomen. IMPRESSION: There is confirmation of lymphoma involvement above and below diaphragm as detailed above with most prominent disease involving the abdomen and pelvis retroperitoneal location.
== END | disposition home or self-care (01) ==
LOC: RADPETMAIN 08:49
PROVIDERS: ATTEND Internal Medicine Hematology & Oncology
DX: C85.89 Other specified types of non-Hodgkin lymphoma, extranodal and solid organ sites (principal)
CPT/HCPCS: 78815; A9552

== ENCOUNTER → 2018-11-24 | Outpatient (CLI) | payer OTHER ==
--- NOTE | 2018-11-25 11:44 | ECHOF ---
Referral Reason:C85.98 Lymphoma, Z01.818 Pre-Chemo MEASUREMENTS -------- HEIGHT: 165.1 cm WEIGHT: 63.5 kg BP: IVSd: 0.9 cm (0.6 - 1.1) LVIDd: 4.9 cm (3.9 - 5.3) LVPWd: 1.0 cm (0.6 - 1.1) IVSs: 1.0 cm LVIDs: 4.1 cm LVPWs: 1.2 cm LA Diam: 4.8 cm (2.7 - 3.8) LAESV Index (A-L): 34.53 ml/m Ao Diam: 2.7 cm (2.0 - 3.7) AV Cusp: 1.9 cm (1.5 - 2.6) LA Diam: 2.5 cm (2.7 - 3.8) MV EXCURSION: 21.150 mm (> 18.000) MV EF SLOPE: 108 mm/s (70 - 150) EPSS: 0.4 cm MV E Donnie: 0.52 m/s MV DecT: 166 ms MV A Donnie: 0.90 m/s MV E/A Ratio: 0.57 RAP: 5.00 mmHg RVSP: 21.84 mmHg TAPSE: 2.60 cm FINDINGS -------- Sinus rhythm. This was a technically good study. The left ventricular size is normal. Left ventricular wall thickness is normal. There is moderate global hypokinesis of LV . Overall left ventricular systolic function is moderate-severely impaire d with, an EF between 30 - 35 %. The right ventricle is normal in size. LA is moderately dilated 34-39 ml/m2 The right atrial size is normal. There is mild aortic valve sclerosis. There is no evidence of aortic regurgitation. Can not exclu de possible calcifaction vs vegetation/tumor of aov. Mild mitral annular calcification present. Mild mitral regurgitation is present. Mild tricuspid regurgitation present. There is no evidence of pulmonary hypertension. The right v entricular systolic pressure, as measured by Doppler, is 21.84mmHg. There is no pulmonic regurgitation present. There is no pericardial effusion. Normal Lap Grade I Distolic Dysfunction. CONCLUSIONS -------- 1. Sinus rhythm. 2. This was a technically good study. 3. The left ventricular size is normal. 4. Left ventricular wall thickness is normal. 5. There is moderate global hypokinesis of LV . 6. Overall left ventricular systolic function is moderate-severely impaired with, an EF between 30 - 35 %. 7. The right ventricle is normal in size. 8. LA is moderately dilated 34-39 ml/m2 9. There is mild aortic valve sclerosis. 10. Can not exclude possible calcifaction vs vegetation/tumor of aov. 11. Mild mitral annular calcification present. 12. Mild mitral regurgitation is present. 13. Mild tricuspid regurgitation present. 14. There is no evidence of pulmonary hypertension. 15. There is no pulmonic regurgitation present. 16. There is no pericardial effusion. 17. Normal Lap Grade I Distolic Dysfunction. [employer]IT MANAGER [employer]: Pau Cordoba RDCS
== END | disposition home or self-care (01) ==
LOC: RADECHMAIN 13:28
PROVIDERS: ATTEND Internal Medicine Hematology & Oncology
DX: Z01.818 Encounter for other preprocedural examination (principal); C85.98 Non-Hodgkin lymphoma, unspecified, lymph nodes of multiple sites; I08.1 Rheumatic disorders of both mitral and tricuspid valves
CPT/HCPCS: 93306

== ENCOUNTER 2018-12-03 07:48 | Day surgery (SDC) | payer OTHER ==
[2018-12-01 12:59] VITALS: BMI 22.8
[~2018-12-03 07:48] MED LIST: DEXAMETHASONE SOD PHOSPHATE 10 MG/ML 1 ML VIAL IV ONE; HEPARIN SODIUM,PORCINE 5,000 UNIT/ML 1 ML VIAL SQ ONE; HYDROmorphone 0.5 MG/0.5 ML SYRINGE IVP PRN; LACTATED RINGERS 1,000 ML IV SCH; MIDAZOLAM 2 MG/2 ML VIAL IV PRN; ONDANSETRON 4 MG/2 ML VIAL IVP ONE; Pre Op ABX Message 1 EACH MISC MISCELLANE ONE; SCOPOLAMINE 1.5MG/72HR PATCH TRANSDERM ONE
[2018-12-03] MEDS ORDERED: LIDOCAINE 1% 20 ML VIAL (10MG/ML) FOR IV START INTRADERMA ONE (08:23)
--- NOTE | 2018-12-03 09:20 | P.GSHP ---
History of Present Illness H&P Date: 12/03/18 Chief Complaint: Lymphoma This is a 63-year-old female who previously diagnosed lymphoma. Patient rents today for Port-A-Cath placement. Past Medical History Past Medical History: Atrial Fibrillation, Cancer, Chest Pain / Angina, Eye Disorder, Hyperlipidemia, Hypertension, Musculoskeletal Disorder Additional Past Medical History / Comment(s): States nonhodgkins lymphoma diagnosed in 2006. States back deterioration. Migranes History of Any Multi-Drug Resistant Organisms: None Reported Past Surgical History: Orthopedic Surgery Additional Past Surgical History / Comment(s): Biopsy for Lymphoma. Vaginal Polyp removed in 2006. Right Shoulder rotator cuff repair, Right Knee Arthroscopy, ORIF RT Ankle in 2006 -has plate/screws. Rt ovary and tube 10/28/2018 Past Anesthesia/Blood Transfusion Reactions: No Reported Reaction Smoking Status: Current some day smoker - Past Family History Mother Family Medical History: COPD, Coronary Artery Disease (CAD), Myocardial Infarction (NH), Seizure Disorder Father Family Medical History: Coronary Artery Disease (CAD), Seizure Disorder Medications and Allergies Home Medications Medication Instructions Recorded Confirmed Type Sertraline [Zoloft] 150 mg PO QAM 06/05/14 12/03/18 History Ascorbic Acid [Vitamin C] 500 mg PO DAILY 06/07/14 12/03/18 History Vitamin E (Dl,Tocopheryl Acet) 400 unit PO DAILY 06/07/14 12/01/18 History [Vitamin E] Aspirin EC [Ecotrin Low Dose] 81 mg PO DAILY 09/19/15 12/01/18 History Metoprolol Tartrate [Lopressor] 25 mg PO BID 10/08/15 12/03/18 History Biotin 5 mg PO DAILY 10/25/18 12/03/18 History Magnesium 200 mg PO DAILY 10/25/18 12/03/18 History Melatonin 10 mg PO HS 10/25/18 12/03/18 History Simvastatin [Zocor] 40 mg PO HS 10/25/18 12/03/18 History Vitamin C/Biotin [Hair, Skin and 1 tab PO DAILY 10/25/18 12/03/18 History Nails] clonazePAM [KlonoPIN] 0.25 mg PO HS 10/25/18 12/03/18 History Calcium Carbonate/Vitamin D3 1 each PO DAILY 12/01/18 12/03/18 History [Calcium 600-Vit D3 500 Softgel] Hydrocodone/Acetaminophen [[place] 1 tab PO TID 12/01/18 12/03/18 History 10-325] Lisinopril [Zestril] 2.5 mg PO HS 12/01/18 12/03/18 History Spironolactone 25 mg PO HS 12/01/18 12/03/18 History Allergies Allergy/AdvReac Type Severity Reaction Status Date / Time NSAIDS (Non-Steroidal AdvReac shuts Verified 12/01/18 12:37 Anti-Inflamma kidneys down Surgical - Exam - General well developed, well nourished, no distress - Eyes PERRL - ENT normal pinna - Neck no masses - Respiratory normal expansion - Cardiovascular Rhythm: regular - Abdomen Abdomen: soft, non tender Assessment and Plan Assessment: Lymphoma. We'll perform Port-A-Cath placement.
[2018-12-03 09:22] VITALS: RESP 16
[2018-12-03] MEDS ORDERED: KETAMINE 10 MG/ML 20 ML VIAL ONE (09:29)
[2018-12-03] MEDS ORDERED: MIDAZOLAM 2 MG/2 ML VIAL ONE (09:29)
[2018-12-03] MEDS ORDERED: fentaNYL (PF) 50 MCG/ML 2 ML AMP ONE (09:29)
[2018-12-03] MEDS ORDERED: HEPARIN SODIUM,PORCINE 100 UNIT/ML 5 ML VIAL IV ONE ×2 (09:45→10:00)
[2018-12-03] MEDS ORDERED: IOHEXOL 180 MG/ML 1 ML ML INJ ONE ×2 (09:45→10:00)
[2018-12-03] MEDS ORDERED: BUPIVACAIN-EPI 0.25%-1:200,000 30 ML VIAL SQ ONE ×2 (09:45→10:00)
[2018-12-03 10:18] VITALS: TEMP 97
--- NOTE | 2018-12-03 10:27 | FL ---
EXAMINATION TYPE: FL guided central line placemt HISTORY: Fluoroscopy time Impression: 1. Fluoroscopy support provided to the referring physician. 12 seconds of fluoroscopy provided.
--- NOTE | 2018-12-03 10:34 | P.OP ---
Date of Procedure: 12/03/18 Preoperative Diagnosis: Lymphoma Postoperative Diagnosis: Lymphoma Procedure(s) Performed: Right subclavian Port-A-Cath Anesthesia: MAC Surgeon: Fahad Brush Estimated Blood Loss (ml): 5 Pathology: none sent Condition: stable Disposition: PACU Description of Procedure: PThe patient was placed on the operating table in the supine position. The patient received IV sedation. The patient's chest was prepped and draped in the usual sterile fashion. A roll had been placed between the shoulder blades in a longitudinal fashion. After prepping and draping the skin was anesthetized 1% local Xylocaine. And then using the Seldinger technique the subclavian vein was cannulated. A wire was placed into the vein and fluoroscopy position the wire at the atrial caval junction. Next the dilator sheath was placed over top the wire and the wire was withdrawn. The catheter was positioned at the atriocaval position. The catheter was placed through the sheath after the dilator was withdrawn. The sheath was then withdrawn. Position of the catheter was confir med with fluoroscopy. The Port-A-Cath was connected to the catheter. The Port-A-Cath was flushed with saline and then heparinized saline. The skin was closed interrupted 3-0 Monocryl suture. Dermabond was applied. Patient tolerated procedure well and was sent to recovery room stable condition.
[2018-12-03 10:44] VITALS: BP 98/55; PULSE 74
--- NOTE | 2018-12-03 11:10 | XR ---
EXAMINATION TYPE: XR chest 1V DATE OF EXAM: 12/03/2018 COMPARISON: Prior chest x-ray 09/19/2015 HISTORY: Mediport placement TECHNIQUE: Single frontal view of the chest is obtained. FINDINGS: There is been interval placement of a Mediport over the right pectoral region, distal tip o f the catheter is overlying the superior vena cava. Patient is rotated. Aorta is dense. Nodular densi ty superimposed over the left heart is likely related to granulomatous disease. There is no focal air space opacity, pleural effusion, or pneumothorax seen. The cardiac silhouette size is within normal limits. The osseous structures are intact. IMPRESSION: No evident complication status post Mediport placement.
== END 2018-12-03 11:21 | disposition home or self-care (01) ==
LOC: OR 07:48
PROVIDERS: ATTEND Surgery
DX: C85.90 Non-Hodgkin lymphoma, unspecified, unspecified site (principal); I10 Essential (primary) hypertension; I48.91 Unspecified atrial fibrillation; E78.5 Hyperlipidemia, unspecified; M79.9 Soft tissue disorder, unspecified; H57.9 Unspecified disorder of eye and adnexa; G43.909 Migraine, unspecified, not intractable, without status migrainosus; F41.9 Anxiety disorder, unspecified; F17.200 Nicotine dependence, unspecified, uncomplicated; Z79.82 Long term (current) use of aspirin; Z79.891 Long term (current) use of opiate analgesic; Z79.899 Other long term (current) drug therapy; Z88.6 Allergy status to analgesic agent; Z90.721 Acquired absence of ovaries, unilateral; Z90.79 Acquired absence of other genital organ(s); Z98.890 Other specified postprocedural states; Z82.5 Family history of asthma and other chronic lower respiratory diseases; Z82.49 Family history of ischemic heart disease and other diseases of the circulatory system; Z82.0 Family history of epilepsy and other diseases of the nervous system
CPT/HCPCS: 77001; 71045; 36561; C1788; J2250; J1644; J1642; J1100; Q9965; J2405; J3010

== ENCOUNTER → 2018-12-15 | Outpatient (CLI) | payer MEDICARE, OTHER ==
[2018-12-15 14:22] LABS: HCT 40.1 % (34.0-46.0); HGB 12.5 gm/dL (11.4-16.0); Hypochromasia Slight; MCH 28.9 pg (25.0-35.0); MCHC 31.2 g/dL (31.0-37.0); MCV 92.6 fL (80.0-100.0); Mean Platelet Volume 6.5; Platelet Count 232 k/uL (150-450); RBC 4.33 m/uL (3.80-5.40); RDW 13.5 % (11.5-15.5); WBC 8.3 k/uL (3.8-10.6)
[2018-12-15 14:32] LABS: African American GFR (CKD) >90 (>60 ml/min/1.73 sqM); Anion Gap 11 mmol/L; Blood Urea Nitrogen 19 mg/dL (7-17); Carbon Dioxide 27 mmol/L (22-30); Chloride 103 mmol/L (98-107); Potassium 4.7 mmol/L (3.5-5.1); Sodium 141 mmol/L (137-145)
== END ==
LOC: LABPAT 13:43
PROVIDERS: ATTEND Internal Medicine Interventional Cardiology
DX: Z01.812 Encounter for preprocedural laboratory examination (principal); I42.0 Dilated cardiomyopathy
CPT/HCPCS: 36415; 80051; 82565; 84520; 85027

== ENCOUNTER 2018-12-20 10:42 | Day surgery (SDC) | payer MEDICARE, OTHER ==
[2018-12-15 14:47] VITALS: BMI 22.9
[~2018-12-20 10:42] MED LIST changes: +ALPRAZolam 0.25 MG TAB PO PRN; +ALPRAZolam 0.5 MG TAB PO PRN; +ASPIRIN 325 MG TAB PO STA; +ATORVASTATIN 80 MG TAB PO STA; +BENZOCAINE SPRAY 1 CAN TOPICAL PRN; -DEXAMETHASONE SOD PHOSPHATE 10 MG/ML 1 ML VIAL IV ONE; -HEPARIN SODIUM,PORCINE 5,000 UNIT/ML 1 ML VIAL SQ ONE; -HYDROmorphone 0.5 MG/0.5 ML SYRINGE IVP PRN; -LACTATED RINGERS 1,000 ML IV SCH; +MIDAZOLAM 2 MG/2 ML VIAL IV ONE; -MIDAZOLAM 2 MG/2 ML VIAL IV PRN; +NITROGLYCERIN SL TABS 0.4 MG TAB SUBLINGUAL PRN; -ONDANSETRON 4 MG/2 ML VIAL IVP ONE; -Pre Op ABX Message 1 EACH MISC MISCELLANE ONE; -SCOPOLAMINE 1.5MG/72HR PATCH TRANSDERM ONE; +SODIUM CHLORIDE 0.9% 1,000 ML in EMPTY BAG 1 BAG IV ONE; +fentaNYL (PF) 50 MCG/ML 5 ML AMP IVP ONE
[2018-12-20 11:17] VITALS: TEMP 98.3
[2018-12-20] MEDS ORDERED: LIDOCAINE 1% INJ 10MG/ML (20 ML MDV) ONE (12:01)
[2018-12-20] MEDS ORDERED: VERAPAMIL 2.5 MG/ML 2 ML AMP ONE (12:05)
[2018-12-20] MEDS ORDERED: BENZOCAINE SPRAY 1 CAN MUCOUS MEM ONE ×2 (12:08→12:20)
[2018-12-20] MEDS ORDERED: MIDAZOLAM 2 MG/2 ML VIAL IVP ONE ×3 (12:22→12:33)
[2018-12-20] MEDS ORDERED: fentaNYL (PF) 50 MCG/ML 2 ML AMP IVP ONE ×2 (12:22→12:33)
[2018-12-20] MEDS ORDERED: LIDOCAINE 1% INJ 10MG/ML (20 ML MDV) SQ ONE (12:57)
[2018-12-20] MEDS ORDERED: VERAPAMIL SYRINGE (5 MG/10 ML) INTRAARTER ONE (12:58)
[2018-12-20] MEDS ORDERED: HEPARIN SODIUM 1,000 UN/ML (10ML VL) ONE (12:59)
[2018-12-20] MEDS ORDERED: HEPARIN SODIUM 1,000 UN/ML (10ML VL) IV ONE (13:00)
[2018-12-20] MEDS ORDERED: IOPAMIDOL-370 125ML BTL INJ ONE (13:07)
--- NOTE | 2018-12-20 13:17 | P.PCN ---
Date of Procedure: 12/20/18 Operative Findings: CARDIAC CATHETERIZATION PERFORMING PHYSICIAN: Beck Tracy MD, RPVI PROCEDURE PERFORMED: 1. Selective right and left coronary angiogram 2. Left heart catheterization INDICATION: This is a 63-year-old female patient with hypertension, dyslipidemia, and smoking, was diagnosed recently with lymphoma and an echocardiogram was obtained before chemotherapy and that revealed cardiomyopathy with EF 5%. Because of that heart catheterization was advised. COMPLICATION: The right radial artery APPROACH: Right radial artery LEVEL OF SEDATION: Moderate sedation off 13 minutes PROCEDURE DESCRIPTION: After obtaining an informed consent, the patient was brought to cardiac dental laboratory technician. Local anesthesia was performed using lidocaine subcutaneously. The right radial artery was cannulated using Seldinger technique, the guidewire passed easily, following that we advanced a 5-Belarusian sheath dilator assembly, the wire and dilator were removed and sheath was flushed. Following that, 2 mg of verapamil along with 6000 unit heparin were given. Selective right and left coronary angiogram using a 6-Belarusian JR4 and JL 3.5 catheters. Following that we did left heart catheterization using 6-Belarusian pigtail catheter. The procedure was completed there was no complication. SELECTIVE CORONARY ANGIOGRAM: The right coronary artery: Medium caliber vessel and nondominant vessel and angiographically normal. Left main: It is angiographically normal. Bifurcates into LCx and LAD The left circumflex: Large caliber vessel and a dominant vessel. Its angiographically normal. In the midportion gives rises into OM 1 which seems to be normal. Distally bifurcates into PDA and PLV branches and both appeared to be angiographically normal. The left anterior descending artery: Is angiographically normal. In the midportion gives rise into a diagonal branch which seems to be angiographically normal. HEMODYNAMICS: The LVEDP was 8-10 mmHg without a gradient across aortic valve CONCLUSION: Normal coronary angiogram Normal LVEDP POSTPROCEDURE MANAGEMENT: Medical treatment
--- NOTE | 2018-12-20 13:27 | ECHOT ---
TRANSESOPHAGEAL ECHOCARDIOGRAM PERFORMING PHYSICIAN: Beck Tracy MD. PROCEDURE PERFORMED: Transesophageal echocardiogram. INDICATION: This is a 63-year-old female patient with a past medical history significant for hypertension, dyslipidemia and smoking, underwent recently an echocardiogram which showed cardiomyopathy as well as possible vegetations on the aortic valve. A CHIQUIS was performed and she was brought today to undergo a catheterization. COMPLICATION: None. LEVEL OF SEDATION: Moderate with sedation length of 15 minutes. PROCEDURE DESCRIPTION: After obtaining an informed consent, explaining the procedure, benefits, risks, complications and alternatives, the patient was brought to the transesophageal echocardiogram suite. A pulse oximetry and heart rate monitors were attached to the patient prior to the procedure. The patient's throat was sprayed using lidocaine locally. Following that, the patient was turned into left lateral position. A bite guard was placed and the patient was then sedated with the above doses of Versed and fentanyl in divided doses. Following that, the transesophageal echocardiogram probe was advanced through the bite guard into the mid esophagus where 2-D echocardiogram images as well as color Doppler images of various cardiac structures were obtained. We evaluated the interatrial septum using 2-D echocardiogram, color Doppler, and contrast study. The procedure was completed. There were no complications. FINDINGS: The left ventricle appeared to be mildly dilated. The left ventricular systolic function seems to be mildly impaired with EF around 45% to 50%. The right ventricle appeared to be within normal limits. The left atrium is mildly dilated. The left atrial appendage appeared to be within normal limits. The interatrial septum appeared to be intact. The aortic valve appeared to be trileaflet valve without stenosis or regurgitation and without any vegetations or masses. The mitral valve seems to be mildly thickened with mild MR. Normal tricuspid valve and pulmonic valve. CONCLUSION: 1. Mildly impaired left ventricular function with ejection fraction around 40% to 45%. 2. Normal intracardiac valves. 3. Normal left atrial appendage. 4. Intact interatrial septum. 5. Normal aortic root dimension. 6. No evidence of pericardial effusion. MMODL / IJN: [id number] /
[2018-12-20 15:14] VITALS: BP 99/52; PULSE 72; RESP 16
[2018-12-20] MEDS ORDERED: oxyCODONE-APAP 10-325MG 1 EACH TAB PO PRN (16:04)
== END 2018-12-20 17:52 | disposition home or self-care (01) ==
LOC: CATHCVL 10:42
PROVIDERS: ATTEND Internal Medicine Interventional Cardiology
DX: I51.9 Heart disease, unspecified (principal); I10 Essential (primary) hypertension; C85.90 Non-Hodgkin lymphoma, unspecified, unspecified site; E78.5 Hyperlipidemia, unspecified; F17.200 Nicotine dependence, unspecified, uncomplicated; F32.9 Major depressive disorder, single episode, unspecified; R63.4 Abnormal weight loss; Z68.23 Body mass index [BMI] 23.0-23.9, adult; Z82.49 Family history of ischemic heart disease and other diseases of the circulatory system; Z79.82 Long term (current) use of aspirin; Z79.891 Long term (current) use of opiate analgesic; Z79.899 Other long term (current) drug therapy; Z88.6 Allergy status to analgesic agent
CPT/HCPCS: 93458; 93312; 93320; 93325; J2250; J2001; J3010; J1644; Q9967

== ENCOUNTER → 2019-01-15 | Outpatient (CLI) | payer MEDICARE, OTHER ==
--- NOTE | 2019-01-18 11:51 | PE ---
Nuclear medicine PET/CT HISTORY: Non-Hodgkin's lymphoma, subsequent Patient received 12.9 mCi F-18 FDG intravenously in delayed scanning was performed from the skull bas e to the mid thighs. Localization and attenuation correction CT scan was performed. Correlation to prior nuclear medicine PET/CT 11/20/2018 Neck and chest: Retropectoral node is present SUV 3.7, left axillary nodes are present, SUV 5.8 and 3 .8, internal mammary node on the left shows SUV 8.5. Internal mammary node on the left immediately an terior to the heart shows SUV 6.5. There is no cervical, supraclavicular, mediastinal, axillary, or h ilar adenopathy. Patient's right-sided Port-A-Cath is present right subclavian approach, distal tip w ithin the superior vena cava. No evident lung mass, pleural or pericardial effusion. No suspicious hy permetabolic uptake. Evidence of old granulomatous disease in the left lower lobe. ABDOMEN: Spleen is at the upper limit of normal size but decreased as compared to prior. Retroperiton eal adenopathy along the region just posterior to the left renal vein is present, there is associated hypermetabolic uptake, SUV is 10.1 with abnormal uptake present anterior to this level within the ab domen as on prior, SUV 10.4. Aortocaval adenopathy is present, there is associated hypermetabolic upt poncho, SUV 13.5. Mesenteric adenopathy more inferiorly shows SUV 14.2. Retrocrural adenopathy noted on the right, axial image #137, there is associated hypermetabolic uptake, SUV 9.3. Small node near the aortic bifurcation to the common iliac region on the right shows SUV 4.3 Gallstones present in the de pendent portion of the gallbladder. Liver shows no mass, small node anterior to the left lobe of the liver shows SUV 3.2. No ascites. Long anterior abdominal wall small hernia may be present with associ ated fat. Small amount of fluid present within the pelvis. Uterus is showing similar appearance. Some hypermetabolic uptake associated with the noted along the right common iliac chain, SUV 9.5. Right g roin also shows a node no enlargement of associated hypermetabolic uptake, SUV is 5.3 with a more med ial node anterior to the pubic symphysis showing SUV 5.6. Osseous structures are unchanged. No suspicious hypermetabolic uptake. IMPRESSION: Abnormal uptake as described within the abdomen is improved. There is persistent abnormal uptake noted however within the chest and abdomen.
== END | disposition home or self-care (01) ==
LOC: RADPETMAIN 11:55
PROVIDERS: ATTEND Internal Medicine Hematology & Oncology
DX: R93.5 Abnormal findings on diagnostic imaging of other abdominal regions, including retroperitoneum (principal); R93.89 Abnormal findings on diagnostic imaging of other specified body structures
CPT/HCPCS: 78815; A9552

== ENCOUNTER 2019-01-24 08:33 | Inpatient (IN) | payer MEDICARE, OTHER ==
[2019-01-24] MEDS ORDERED: ONDANSETRON 4 MG/2 ML VIAL IVP PRN (09:00)
[2019-01-24] MEDS: SODIUM CHLORIDE 0.9% 1,000 ML IV SCH ×3 (10:32→23:51)
[2019-01-24 11:31] LABS: Basophils # (A) 0.1 k/uL (0-0.2); Basophils % (A) 2 %; Eosinophils # (A) 0.1 k/uL (0-0.7); Eosinophils % (A) 3 %; HCT 34.9 % (34.0-46.0); HGB 11.5 gm/dL (11.4-16.0); Lymphocytes # (A) 0.8 k/uL (1.0-4.8); Lymphocytes % (A) 27 %; MCH 29.3 pg (25.0-35.0); MCV 88.6 fL (80.0-100.0); Mean Platelet Volume 6.1; Monocytes # (A) 0.2 k/uL (0-1.0); Monocytes % (A) 8 %; Neutrophils # (A) 1.7 k/uL (1.3-7.7); Neutrophils % (A) 58 %; Platelet Count 142 k/uL (150-450); RBC 3.94 m/uL (3.80-5.40); RDW 15.4 % (11.5-15.5)
[2019-01-24 11:41] LABS: ALT 32 U/L (9-52); AST 49 U/L (14-36); African American GFR (CKD) >90 (>60 ml/min/1.73 sqM); Albumin 3.9 g/dL (3.5-5.0); Alkaline Phosphatase 77 U/L (38-126); Anion Gap 5 mmol/L; Blood Urea Nitrogen 10 mg/dL (7-17); Calcium 8.9 mg/dL (8.4-10.2); Carbon Dioxide 29 mmol/L (22-30); Chloride 104 mmol/L (98-107); Glucose 100 mg/dL (74-99); Non-African American GFR(CKD) >90 (>60 ml/min/1.73 sqM); Phosphorus 3.9 mg/dL (2.5-4.5); Potassium 4.3 mmol/L (3.5-5.1); Sodium 138 mmol/L (137-145); Total Bilirubin 0.3 mg/dL (0.2-1.3); Total Protein 6.8 g/dL (6.3-8.2); Uric Acid 4.9 mg/dL (3.7-7.4)
[2019-01-24] MEDS: SALT AND SODA MOUTHWASH 1,000 ML PO SCH ×4 (13:03→23:50)
[2019-01-24 14:53] VITALS: BMI 22.4
[2019-01-24] MEDS: DEXAMETHASONE SOD PHOSPHATE 10 MG/ML 1 ML VIAL IV SCH (15:13)
[2019-01-24] MEDS: FAMOTIDINE 20 MG/2 ML VIAL IV SCH (15:13)
[2019-01-24] MEDS: ONDANSETRON 16 MG in SODIUM CHLORIDE 0.9% 50 ML IVPB SCH (15:43)
[2019-01-24] MEDS ORDERED: ETOPOSIDE 170 MG in SODIUM CHLORIDE 0.9% 500 ML 500 ML IV SCH (16:00)
[2019-01-24] MEDS ORDERED: PSYLLIUM HUSK 100% 6 GM PACKET PO PRN (18:50)
[2019-01-24] MEDS ORDERED: oxyCODONE-APAP 10-325MG 1 EACH TAB PO PRN (19:06)
[2019-01-24] MEDS ORDERED: FLUTICASONE 50MCG/SPRAY NASAL 16GM EA NOSTRIL PRN (19:06)
[2019-01-24] MEDS ORDERED: CYCLOBENZAPRINE 10 MG TAB PO PRN (19:06)
[2019-01-24] MEDS ORDERED: LIDOCAINE-PRILOCAINE 2.5-2.5% CREAM 5 GM TUBE TOPICAL PRN (19:06)
[2019-01-24] MEDS ORDERED: ONDANSETRON 4 MG TAB PO PRN (19:06)
[2019-01-24] MEDS ORDERED: MAGNESIUM OXIDE 400 MG TAB PO PRN (19:06)
--- NOTE | 2019-01-24 19:10 | P.HPIM ---
History of Present Illness H&P Date: 01/24/19 Chief Complaint: NHL admit for ICE Ms. Quiroz is a very pleasant female, referred here to establish care for a history of NHL. She felt a lump in her right groin in 2006, size of a grape, biopsy at [facility], told that it was a non-Hodgkin's lymphoma and she had lymph nodes both above and below the diaphragm. She was seen by Dr. Gonzalez, and observation was recommended. However she did not follow-up since 2007, has not had any Oncology care since. She started having discomfort in the left upper chest which was nonspecific. Mammogram on 04/24/17 which revealed an asymmetric density, follow-up ultrasound recommended. She became concerned, given this new finding with her prior history. She was referred to Dr. Gutiérrez. CT CAP and labs were negative. Pathology was requested from [facility] (too old??), but never received. Her US of the breast was negative, 6 mth f/u was recommended. Patient was asymptomatic, decided to place her on observation. Presented 10/25 c/o new onset of abdominal pain, progressive over 7-10 days, mainly localized the right lower quadrant, CT AP 10/27/18 showed mixed density mass in the right lower quadrant, with soft tissue density, felt to be related to phlegmon or abscess, mild right-sided inguinal adenopathy that was unchanged, borderline retroperitoneal lymph nodes unchanged. She underwent surgery on 10/28/18, with resection of the right ovary and right fallopian tube as well as pelvic lymph node biopsy. This showed evidence of high-grade B cell non-Hodgkin lymphoma in the pelvic lymph node, benign ovarian fibroma and atrophic fallopian tube with associated lymphoid tissue with atypical lymphoproliferative process. Double hit/triple hit was subsequently ruled out as MYC rearrangement was negative. PET showed multiple areas of uptake including left axilla, mediastinum, left breast, multiple areas in the retroperitoneum. She was found to be hepatitis C positive. ECHO revealed an EF of 35 %. She was seen by ID, and is to start antiviral Rx in the near future, no Rituxan at this time in regimen because of this. She had a cath by Cardiology, which was negative and showed increase in EF to 45%. She was thus started on CEOP 12/13/18 and had 2 cycles. PEG-GCSF was added with C2. PET scan after C 2 showed improvement, but still persistent uptake in multiple areas, including retropectoral, retroperitoneal, and pelvis. Because of the mixed response to treatment regimen has been changed. This is for patient is admitted for. On admission patient denies fevers, chills, adenopathy, difficulty swallowing, appetite is good, no nausea, vomiting, chest pain, palpitations, difficulty breathing, abdominal pain, distention, cramping, acute changes in bowel or bladder habits, swelling, rashes or pain, she is fully ambulatory. Review of Systems 14 point review of systems is negative except as stated in HPI Past Medical History Past Medical History: Atrial Fibrillation, Cancer, Chest Pain / Angina, Eye Disorder, Hyperlipidemia, Hypertension, Musculoskeletal Disorder, Pneumonia Additional Past Medical History / Comment(s): 2006 nonhodgkins lymphoma-no treatment needed, 10/2018 reoccurrence nonhodgkins lymphoma-received 2 rounds chemo/pet scan recently showed persistent abnormal uptake in chest/abdomin, abdominal pain/constipation, newly diagnosed hepatitis C-pt waiting for drug to start treatment, DDD, chronic low back pain (sees Dr. Cummins for pain management), migraines, decreased renal function with steroid/nsaid use. History of Any Multi-Drug Resistant Organisms: None Reported Past Surgical History: Heart Catheterization, Orthopedic Surgery Additional Past Surgical History / Comment(s): 10/28/18 Exploratory laparotomy with tubo-ovarian abscess/R salpingo-oophorectomy/removal pelvic lymph nodes, 12/03/18 Port a cath, 12/20/18 cardiac cath-normal/CHIQUIS, 2016 cardiac cath, vaginal polypectomy, R shoulder arthroscopy/rotator cuff repair x2, R knee arthroscopy, ORIF R ankle with plates/screws. Past Anesthesia/Blood Transfusion Reactions: No Reported Reaction Past Psychological History: No Psychological Hx Reported Smoking Status: Current every day smoker Past Alcohol Use History: Occasional Past Drug Use History: None Reported - Past Family History Mother Family Medical History: COPD, Coronary Artery Disease (CAD), Myocardial Infarction ([place]), Seizure Disorder Additional Family Medical History / Comment(s): Mother had a [place] at the age of 76yrs. She from fall/facial injury and aspirated blood. Father Family Medical History: Coronary Artery Disease (CAD), Seizure Disorder Additional Family Medical History / Comment(s): Father had a seizure while driving resulting in a MVA in which he . Medications and Allergies Home Medications Medication Instructions Recorded Confirmed Type Sertraline [Zoloft] 100 mg PO DAILY 06/05/14 01/24/19 History Ascorbic Acid [Vitamin C] 500 mg PO DAILY 06/07/14 01/24/19 History Metoprolol Tartrate [Lopressor] 25 mg PO BID 10/08/15 01/24/19 History Biotin 5 mg PO DAILY 10/25/18 01/24/19 History Simvastatin [Zocor] 40 mg PO HS 10/25/18 01/24/19 History clonazePAM [KlonoPIN] 0.5 mg PO BID PRN 10/25/18 01/24/19 History Calcium Carbonate/Vitamin D3 1 cap PO BID 12/01/18 01/24/19 History [Calcium 600-Vit D3 500 Softgel] Lisinopril [Zestril] 2.5 mg PO DAILY 12/01/18 01/24/19 History Spironolactone 25 mg PO DAILY 12/01/18 01/24/19 History Fluticasone Nasal [place] [Flonase 2 spr EA NOSTRIL DAILY PRN 12/15/18 01/24/19 History Nasal [place]] Ondansetron HCl [Zofran] 4 mg PO Q4H PRN 12/15/18 01/24/19 History Psyllium Husk [Metamucil] 0.4 gm PO DAILY PRN 12/15/18 01/24/19 History oxyCODONE-APAP 10-325MG [Percocet 1 tab PO Q8HR PRN 12/20/18 01/24/19 History 10-325 mg] Amitriptyline HCl [Elavil] 25 mg PO HS 01/24/19 01/24/19 History Aspirin EC [Ecotrin Low Dose] 81 mg PO DAILY 01/24/19 01/24/19 History Cetirizine HCl [Zyrtec] 10 mg PO DAILY 01/24/19 01/24/19 History Cyclobenzaprine [Flexeril] 10 mg PO TID PRN 01/24/19 01/24/19 History Glecaprevir/Pibrentasvir [Mavyret 3 tab PO DAILY 01/24/19 01/24/19 History 100-40 mg Tablet] Jaylyn Vitamin 1 tab PO DAILY 01/24/19 01/24/19 History Lidocaine-Prilocaine Cream [Emla 1 applic TOPICAL DAILY PRN 01/24/19 01/24/19 History Cream 2.5%/2.5%] Magnesium Citrate 230mg 230 mg PO DAILY PRN 01/24/19 01/24/19 History Omeprazole 20 mg PO DAILY 01/24/19 01/24/19 History Oxycodone Myristate [Xtampza ER] 36 mg PO Q12H 01/24/19 01/24/19 History Polyethylene Glycol 3350 [Miralax] 17 gm PO DAILY 01/24/19 01/24/19 History Potassium 99 mg PO DAILY 01/24/19 01/24/19 History Sennosides [Senna] 17.2 mg PO HS 01/24/19 01/24/19 History Sertraline HCl [Zoloft] 50 mg PO DAILY 01/24/19 01/24/19 History Vitamin E (Dl,Tocopheryl Acet) 400 unit PO DAILY 01/24/19 01/24/19 History [Vitamin E] predniSONE 50 mg PO DIRECTED 01/24/19 01/24/19 History traZODone HCL 50 mg PO HS 01/24/19 01/24/19 History Allergies Allergy/AdvReac Type Severity Reaction Status Date / Time NSAIDS (Non-Steroidal AdvReac shuts Verified 01/24/19 10:58 Anti-Inflamma kidneys down Physical Exam Vitals: Vital Signs Temp Pulse Resp BP Pulse Ox 01/24/19 08:56 98.1 F 72 17 103/64 97 - Constitutional General appearance: average body habitus, cooperative, no acute distress - EENT Eyes: anicteric sclerae, EOMI ENT: hearing grossly normal, normal oropharynx - Neck Neck: no lymphadenopathy - Respiratory Respiratory: bilateral: CTA - Cardiovascular Rhythm: regular Heart sounds: normal: S1, S2 Abnormal Heart Sounds: no systolic murmur, no diastolic murmur, no rub, no S3 Gallop, no S4 Gallop, no click, no other leg Peripheral Edema: bilateral: None - Gastrointestinal General gastrointestinal: no absent bowel sounds, no decreased bowel sounds, no distended, no hepatomegaly, no hyperactive bowel sounds, normal bowel sounds, no organomegaly, no rigid, no scaphoid, soft, no splenomegaly, no tenderness, no umbilical hernia, no ventral hernia - Integumentary Integumentary: normal - Neurologic Neurologic: CNII-XII intact - Musculoskeletal Musculoskeletal: strength equal bilaterally - Psychiatric Psychiatric: A&O x's 3, appropriate affect, intact judgment & insight Results CBC & Chem 7: 01/24/19 11:00 01/24/19 11:00 Thrombosis Risk Factor Assmnt - DVT/VTE Prophylaxis DVT/VTE Prophylaxis: Pharmacologic Prophylaxis ordered - Choose All That Apply Any of the Below Risk Factors Present?: Yes Other Risk Factors: Yes Each Risk Factor Represents 2 Points: Age 61-74 years, Malignancy Other congenital or acquired thrombophilia - If yes, enter type in comment: No Thrombosis Risk Factor Assessment Total Risk Factor Score: 4 Thrombosis Risk Factor Assessment Level: Moderate Risk Assessment and Plan (1) NHL (non-Hodgkin's lymphoma) Narrative/Plan: Admit for ICE regimen for suboptimal/mied response to CEOP. Chemotherapy orders were reviewed. Supportive medications ordered. Consult Hospitalists for medical management. Home medications reconciled Labs daily Cardiac monitoring Ambulation, PT consulted Dietitian consulted GI/DVT prophylaxis Daily f/u Current Visit: Yes Status: Acute Priority: High Code(s): C85.90 - NON- HODGKIN LYMPHOMA, UNSPECIFIED, UNSPECIFIED SITE SNOMED Code(s): 801020674
[2019-01-24] MEDS: SENNOSIDES 8.6 MG TAB PO SCH (20:29)
[2019-01-24] MEDS: traZODone HCL 50 MG TAB PO SCH (20:29)
[2019-01-24] MEDS: METOPROLOL TARTRATE 25 MG TAB PO SCH (20:29)
[2019-01-24] MEDS: CALCIUM CARB-VIT D 500MG-200UN 1 EACH TAB PO SCH (20:29)
[2019-01-24] MEDS: ATORVASTATIN 20 MG TAB PO SCH (20:29)
[2019-01-24] MEDS: AMITRIPTYLINE HCL 25 MG TAB PO SCH (20:32)
[2019-01-24] MEDS: XTAMPZA 36 MG PO SCH (20:32)
[2019-01-25] MEDS: SALT AND SODA MOUTHWASH 1,000 ML PO SCH ×4 (05:41→20:16)
[2019-01-25] MEDS: SPIRONOLACTONE 25 MG TAB PO SCH (07:34)
[2019-01-25] MEDS: predniSONE 50 MG TAB PO SCH (07:34)
[2019-01-25] MEDS: SERTRALINE 100 MG TAB PO SCH (07:34)
[2019-01-25] MEDS: LISINOPRIL 2.5 MG TAB PO SCH (07:35)
[2019-01-25] MEDS: POLYETHYLENE GLYCOL 3350 17 GM POWD.PACK PO SCH (07:35)
[2019-01-25] MEDS: ASCORBIC ACID 500 MG TAB PO SCH (07:35)
[2019-01-25] MEDS: PANTOPRAZOLE 40 MG TABLET PO SCH (07:35)
[2019-01-25] MEDS: CALCIUM CARB-VIT D 500MG-200UN 1 EACH TAB PO SCH ×2 (07:35→20:15)
[2019-01-25] MEDS: SERTRALINE 50 MG TAB PO SCH (07:35)
[2019-01-25] MEDS: METOPROLOL TARTRATE 25 MG TAB PO SCH ×2 (07:35→20:14)
[2019-01-25] MEDS: LORATADINE 10 MG TAB PO SCH (07:42)
[2019-01-25] MEDS: XTAMPZA 36 MG PO SCH ×2 (07:43→20:31)
[2019-01-25] MEDS: VITAMIN E (DL,TOCOPHERYL ACET) 400 UNIT CAP PO SCH (07:44)
[2019-01-25] MEDS: SODIUM CHLORIDE 0.9% 1,000 ML IV SCH ×2 (07:44→16:03)
[2019-01-25] MEDS: ENOXAPARIN 40 MG/0.4 ML SYRINGE SQ SCH (07:45)
[2019-01-25 08:14] LABS: Basophils % (A) 1 %; Eosinophils % (A) 1 %; HCT 34.6 % (34.0-46.0); HGB 11.3 gm/dL (11.4-16.0); Lymphocytes # (A) 0.7 k/uL (1.0-4.8); Lymphocytes % (A) 26 %; MCH 29.3 pg (25.0-35.0); MCHC 32.8 g/dL (31.0-37.0); MCV 89.4 fL (80.0-100.0); Mean Platelet Volume 6.1; Monocytes # (A) 0.2 k/uL (0-1.0); Monocytes % (A) 7 %; Neutrophils # (A) 1.8 k/uL (1.3-7.7); Neutrophils % (A) 64 %; Platelet Count 134 k/uL (150-450); RBC 3.87 m/uL (3.80-5.40); RDW 15.3 % (11.5-15.5); WBC 2.9 k/uL (3.8-10.6)
[2019-01-25 08:26] LABS: ALT 31 U/L (9-52); AST 40 U/L (14-36); African American GFR (CKD) >90 (>60 ml/min/1.73 sqM); Albumin 3.9 g/dL (3.5-5.0); Alkaline Phosphatase 69 U/L (38-126); Anion Gap 6 mmol/L; Blood Urea Nitrogen 15 mg/dL (7-17); Calcium 8.9 mg/dL (8.4-10.2); Carbon Dioxide 28 mmol/L (22-30); Chloride 106 mmol/L (98-107); Glucose 107 mg/dL (74-99); Magnesium 1.9 mg/dL (1.6-2.3); Non-African American GFR(CKD) 81 (>60 ml/min/1.73 sqM); Phosphorus 4.2 mg/dL (2.5-4.5); Potassium 4.2 mmol/L (3.5-5.1); Sodium 140 mmol/L (137-145); Total Bilirubin 0.5 mg/dL (0.2-1.3); Total Protein 6.8 g/dL (6.3-8.2); Uric Acid 6.1 mg/dL (3.7-7.4)
[2019-01-25] MEDS: POTASSIUM CHLORIDE ER 10 MEQ TAB.ER.PRT PO SCH (12:25)
[2019-01-25] MEDS: DEXAMETHASONE SOD PHOSPHATE 10 MG/ML 1 ML VIAL IV SCH (13:58)
[2019-01-25] MEDS: ONDANSETRON 16 MG in SODIUM CHLORIDE 0.9% 50 ML IVPB SCH (13:59)
[2019-01-25] MEDS: FAMOTIDINE 20 MG/2 ML VIAL IV SCH (13:59)
[2019-01-25] MEDS ORDERED: CARBOplatin 450 MG in SODIUM CHLORIDE 0.9% 250 ML IV ONE (15:00)
[2019-01-25] MEDS: ETOPOSIDE 170 MG in SODIUM CHLORIDE 0.9% 500 ML 500 ML IV SCH (15:15)
[2019-01-25] MEDS ORDERED: SODIUM CHLORIDE 0.9% IV ONE ×2 (16:00)
[2019-01-25] MEDS ORDERED: MESNA IV ONE (16:00)
[2019-01-25] MEDS ORDERED: IFOSFAMIDE IV ONE (16:00)
--- NOTE | 2019-01-25 17:26 | P.PN ---
Subjective Progress Note Date: 01/25/19 Principal diagnosis: NHL, admit for ICE regimen In f/u today pt has no c/o other then mild nausea, 14 point ROS is negative Objective - Vital Signs Vital signs: Vital Signs Temp 98.4 F 01/25/19 16:00 Pulse 68 01/25/19 16:00 Resp 16 01/25/19 16:00 BP 124/86 01/25/19 16:00 Pulse Ox 97 01/25/19 16:00 Intake & Output 01/24/19 01/25/19 01/25/19 18:59 06:59 18:59 Intake Total 3420 2580 720 Balance 3420 2580 720 Weight 61.1 kg 61.1 kg Intake: IV 500 Invasive Line 1 500 Intake, IV Titration 500 1500 Amount Sodium Chloride 0.9% 1, 500 1500 000 ml @ 125 mls/hr IV . Q8H [facility] Rx#:[id number] Oral 2420 1080 720 Other: Voiding Method Toilet Toilet Toilet # Voids 2 2 - Constitutional General appearance: Present: average body habitus, cooperative, no acute distress - EENT Eyes: Present: anicteric sclerae, EOMI ENT: Present: hearing grossly normal, normal oropharynx - Neck Neck: Present: normal ROM. Absent: lymphadenopathy, thyromegaly - Respiratory Respiratory: bilateral: CTA - Cardiovascular Rhythm: regular Heart sounds: normal: S1, S2 Abnormal Heart Sounds: Absent: systolic murmur, diastolic murmur, rub, S3 Gallop, S4 Gallop, click, other - Peripheral edema leg Peripheral Edema: bilateral: Trace (compression socks on ) - Gastrointestinal General gastrointestinal: Present: normal bowel sounds, soft. Absent: absent bowel sounds, decreased bowel sounds, distended, hepatomegaly, hyperactive bowel sounds, organomegaly, rigid, scaphoid, splenomegaly, tenderness, umbilical hernia, ventral hernia - Neurologic Neurologic: Present: CNII-XII intact - Musculoskeletal Musculoskeletal: Present: strength equal bilaterally - Psychiatric Psychiatric: Present: A&O x's 3, appropriate affect, intact judgment & insight - Labs CBC & Chem 7: 01/25/19 07:45 01/25/19 07:45 Labs: Abnormal Lab Results - Last 24 Hours (Table) 01/25/19 01/25/19 Range/Units 07:45 07:45 WBC 2.9 L (3.8-10.6) k/uL Hgb 11.3 L (11.4-16.0) gm/dL Plt Count 134 L (150-450) k/uL Lymphocytes # 0.7 L (1.0-4.8) k/uL Glucose 107 H (74-99) mg/dL AST 40 H (14-36) U/L Assessment and Plan (1) NHL (non-Hodgkin's lymphoma) Narrative/Plan: Admit for ICE regimen for suboptimal response to CEOP. Cont chemo without adjustment Supportive medications ordered. Consult Hospitalists for medical management. Home medications reconciled Labs daily Cardiac monitoring Ambulation, PT consulted Dietitian consulted GI/DVT prophylaxis Daily f/u Current Visit: Yes Status: Acute Priority: High Code(s): C85.90 - NON- HODGKIN LYMPHOMA, UNSPECIFIED, UNSPECIFIED SITE SNOMED Code(s): 098378661
[2019-01-25] MEDS: SENNOSIDES 8.6 MG TAB PO SCH (20:13)
[2019-01-25] MEDS: traZODone HCL 50 MG TAB PO SCH (20:14)
[2019-01-25] MEDS: ATORVASTATIN 20 MG TAB PO SCH (20:14)
[2019-01-25] MEDS: AMITRIPTYLINE HCL 25 MG TAB PO SCH (20:15)
[2019-01-26 00:09] VITALS: RESP 16
[2019-01-26] MEDS: SALT AND SODA MOUTHWASH 1,000 ML PO SCH ×5 (00:22→22:11)
[2019-01-26] MEDS: SODIUM CHLORIDE 0.9% 1,000 ML IV SCH ×4 (04:59→22:17)
[2019-01-26 07:01] LABS: Basophils % (A) 1 %; Eosinophils % (A) 0 %; HCT 33.3 % (34.0-46.0); HGB 10.9 gm/dL (11.4-16.0); Hypochromasia Slight; Lymphocytes # (A) 0.6 k/uL (1.0-4.8); Lymphocytes % (A) 16 %; MCH 29.4 pg (25.0-35.0); MCHC 32.6 g/dL (31.0-37.0); MCV 90.2 fL (80.0-100.0); Mean Platelet Volume 6.6; Monocytes # (A) 0.2 k/uL (0-1.0); Monocytes % (A) 4 %; Neutrophils % (A) 79 %; Platelet Count 145 k/uL (150-450); RBC 3.69 m/uL (3.80-5.40); RDW 15.5 % (11.5-15.5); WBC 3.9 k/uL (3.8-10.6)
[2019-01-26 07:27] LABS: ALT 29 U/L (9-52); AST 28 U/L (14-36); African American GFR (CKD) >90 (>60 ml/min/1.73 sqM); Albumin 3.3 g/dL (3.5-5.0); Alkaline Phosphatase 53 U/L (38-126); Anion Gap 6 mmol/L; Blood Urea Nitrogen 14 mg/dL (7-17); Calcium 8.7 mg/dL (8.4-10.2); Carbon Dioxide 25 mmol/L (22-30); Chloride 113 mmol/L (98-107); Glucose 83 mg/dL (74-99); Non-African American GFR(CKD) >90 (>60 ml/min/1.73 sqM); Potassium 4.1 mmol/L (3.5-5.1); Sodium 144 mmol/L (137-145); Total Bilirubin 0.3 mg/dL (0.2-1.3); Total Protein 6.1 g/dL (6.3-8.2)
[2019-01-26] MEDS: ASCORBIC ACID 500 MG TAB PO SCH (09:21)
[2019-01-26] MEDS: SERTRALINE 100 MG TAB PO SCH (09:21)
[2019-01-26] MEDS: POTASSIUM CHLORIDE ER 10 MEQ TAB.ER.PRT PO SCH (09:22)
[2019-01-26] MEDS: LORATADINE 10 MG TAB PO SCH (09:22)
[2019-01-26] MEDS: CALCIUM CARB-VIT D 500MG-200UN 1 EACH TAB PO SCH ×2 (09:22→22:10)
[2019-01-26] MEDS: METOPROLOL TARTRATE 25 MG TAB PO SCH ×2 (09:22→22:10)
[2019-01-26] MEDS: SPIRONOLACTONE 25 MG TAB PO SCH (09:22)
[2019-01-26] MEDS: LISINOPRIL 2.5 MG TAB PO SCH (09:22)
[2019-01-26] MEDS: PANTOPRAZOLE 40 MG TABLET PO SCH (09:22)
[2019-01-26] MEDS: XTAMPZA 36 MG PO SCH ×2 (09:23→22:44)
[2019-01-26] MEDS: ENOXAPARIN 40 MG/0.4 ML SYRINGE SQ SCH (09:23)
[2019-01-26] MEDS: POLYETHYLENE GLYCOL 3350 17 GM POWD.PACK PO SCH (09:23)
[2019-01-26] MEDS: SERTRALINE 50 MG TAB PO SCH (09:24)
[2019-01-26] MEDS: VITAMIN E (DL,TOCOPHERYL ACET) 400 UNIT CAP PO SCH (09:24)
[2019-01-26] MEDS: clonazePAM 0.5 MG TAB PO PRN ×2 (10:02→22:12)
[2019-01-26] MEDS: DEXAMETHASONE SOD PHOSPHATE 10 MG/ML 1 ML VIAL IV SCH (17:35)
[2019-01-26] MEDS: FAMOTIDINE 20 MG/2 ML VIAL IV SCH (17:35)
[2019-01-26] MEDS: ONDANSETRON 16 MG in SODIUM CHLORIDE 0.9% 50 ML IVPB SCH (17:35)
[2019-01-26] MEDS: ETOPOSIDE 170 MG in SODIUM CHLORIDE 0.9% 500 ML 500 ML IV SCH (18:05)
--- NOTE | 2019-01-26 18:56 | P.PN ---
Subjective Progress Note Date: 01/26/19 Principal diagnosis: NHL, admit for ICE regimen In f/u today pt has no c/o She is tolerating oral intake, using supportive medications if she is experiencing any side effects therefore, keeping her side effects while under control (some mild nausea), oral intake is fair to good, she is ambulating frequently, denies any dizziness or unusual weakness. She has no urinary symptoms to report. No pain Objective - Vital Signs Vital signs: Vital Signs Temp 98.7 F 01/26/19 16:56 Pulse 73 01/26/19 16:56 Resp 16 01/26/19 16:56 BP 105/54 01/26/19 16:56 Pulse Ox 96 01/26/19 16:56 Intake & Output 01/25/19 01/26/19 01/26/19 18:59 06:59 18:59 Intake Total 7348 1600 Balance 7348 1600 Weight 61.1 kg Intake: Intake, IV Titration 4108 1000 Amount CARBOplatin 450 mg In 250 Sodium Chloride 0.9% 250 ml @ 590 mls/hr IV ONCE ONE Rx#:[id number] Etoposide 170 mg In 508 Sodium Chloride 0.9% 500 ml 500 ml @ 508.5 mls/hr IV DAILY@1500 [facility] Rx#: [id number] Ifosfamide 8,300 mg In 1000 Sodium Chloride 0.9% 1, 000 ml @ 48.583 mls/hr IV ONCE ONE Rx#:[id number] [place] 8,300 mg In Sodium 500 Chloride 0.9% 500 ml 332 ml @ 17.292 mls/hr IV ONCE ONE Rx#:[id number] Ondansetron 16 mg In 50 Sodium Chloride 0.9% 50 ml @ 232 mls/hr IVPB DAILY@1500 [facility] Rx#: [id number] Sodium Chloride 0.9% 1, 1800 1000 000 ml @ 125 mls/hr IV . Q8H [facility] Rx#:[id number] Oral 3240 600 Other: Voiding Method Toilet Toilet Toilet # Voids 5 1 2 - Constitutional General appearance: Present: average body habitus, cooperative, no acute distress - EENT Eyes: Present: anicteric sclerae, EOMI ENT: Present: hearing grossly normal, normal oropharynx - Respiratory Respiratory: bilateral: CTA - Cardiovascular Rhythm: regular Heart sounds: normal: S1, S2 Abnormal Heart Sounds: Absent: systolic murmur, diastolic murmur, rub, S3 Gallop, S4 Gallop, click, other - Peripheral edema leg Peripheral Edema: bilateral: None - Gastrointestinal General gastrointestinal: Present: normal bowel sounds, soft - Integumentary Integumentary: Present: normal - Neurologic Neurologic: Present: CNII-XII intact - Musculoskeletal Musculoskeletal: Present: strength equal bilaterally - Psychiatric Psychiatric: Present: A&O x's 3, appropriate affect, intact judgment & insight - Labs CBC & Chem 7: 01/26/19 06:38 01/26/19 06:38 Labs: Abnormal Lab Results - Last 24 Hours (Table) 01/26/19 01/26/19 Range/Units 06:38 06:38 RBC 3.69 L (3.80-5.40) m/uL Hgb 10.9 L (11.4-16.0) gm/dL Hct 33.3 L (34.0-46.0) % Plt Count 145 L (150-450) k/uL Lymphocytes # 0.6 L (1.0-4.8) k/uL Chloride 113 H (98-107) mmol/L Total Protein 6.1 L (6.3-8.2) g/dL Albumin 3.3 L (3.5-5.0) g/dL Assessment and Plan (1) NHL (non-Hodgkin's lymphoma) Narrative/Plan: Admit for ICE regimen for suboptimal response to CEOP. Cont chemo without adjustment-to complete this evening Supportive medications ordered. Home medications reconciled Labs daily Cardiac monitoring Ambulation, PT consulted Dietitian consulted GI/DVT prophylaxis Daily f/u Neulasta day after chemo Weekly f/u Anticipate DC in AM Current Visit: Yes Status: Acute Priority: High Code(s): C85.90 - NON- HODGKIN LYMPHOMA, UNSPECIFIED, UNSPECIFIED SITE SNOMED Code(s): 185094353
--- NOTE | 2019-01-26 19:25 | P.CONS ---
History of Present Illness - Reason for Consult Consult date: 01/26/19 Medical management Requesting physician: Virgilio Gutiérrez - Chief Complaint Tired - History of Present Illness Consultation: This is a very pleasant 63-year-old patient of Dr. Weller. Rather extensive medical history. Patient initially diagnosed as a lump in the right groin in 2 017 had a biopsy done at [facility] and had a diagnosis of non- Hodgkin's lymphoma. Decision was made to follow with observation. She did not follow-up for the same. She had a possible breast lump ultrasound of the breast was negative. In October of this year she had new abdominal pain and computed tomography scan showed a mass in the right lower quadrant. Along with adenopathy. She underwent resection of the right ovary and right fallopian tube and pelvic lymph node biopsy was carried out. 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 PET scan that showed multiple areas of uptake including the left axilla. Sternal left breast multiple areas of retroperitoneal. She was hepatitis C positive 2-D echo showed EF of 45%. She also had a cardiac catheterization in October of this year came back to be negative. Patient was started with chemotherapy. Had a mixed response. Is now admitted for chemotherapy. Appetite is decreased. Does get abdominal pain and discomfort. Bowel movements are okay with laxatives. No fever no chills. Does have some nausea. Patient able to get to the bathroom. Review of systems: GEN.: Tired weight loss EYES: None HEENT: None NECK: None RESPIRATORY: None CARDIOVASCULAR: None GASTROINTESTINAL: None GENITOURINARY: None MUSCULOSKELETAL: None LYMPHATICS: None HEMATOLOGICAL: None PSYCHIATRY: None NEUROLOGICAL: None Past medical history to include: High-grade B-cell non-Hodgkin's lymphoma, hepatitis C, cardiomyopathy EF 45% atrial fibrillation, hypertension, hyperlipidemia chronic low back pain. She follows with Dr. Cummins Social history: , smokes about half a pack a day for close to 50 years, does marijuana about twice a week Physical examination: VITAL SIGNS: 98, 76, 16, 125/60, 99% room air GENERAL: BMI 22.4, sitting on bed, tired. EYES: Pupils equal. Conjunctiva palel. HEENT: External appearance of nose and ears normal, oral cavity grossly normal. NECK: JVD not raised; masses not palpable. HEART: First and second heart sounds are normal; no edema. LUNGS: Respiratory rate normal; decreased breath sounds. ABDOMEN: Soft, mild right lower quadrant tenderness, possible mass liver spleen not palpable, no masses palpable. PSYCH: [Alert and oriented x3; mood and affect anxious l. NEUROLOGICAL: Cranial nerves grossly intact; no facial asymmetry, power and sensation grossly intact. LYMPHATICS: No lymph nodes palpable in the axilla and neck INVESTIGATIONS, reviewed in the clinical context: White count 3.9 hemoglobin 10.9 platelets 145 progression 4.1 crit 0.67 albumin 3.3 Assessment: -Non-Hodgkin's lymphoma for ICE regimen chemotherapy -Hepatitis C -Cardiomyopathy EF 35-40% cause unknown -Essential hypertension -Hyperlipidemia -Thrombocytopenia likely from chemotherapy -Nausea due to chemotherapy -Chronic nicotine dependence patient cigarette smoker. Does not want a nicotine patch Plan: Patient be started on chemotherapy. Some IV fluids. Tolerating some diet. Care was discussed with the patient. Question were also. Electrolytes CBC to be followed closely. Questions were answered Thank you Dr. Gutiérrez Past Medical History Past Medical History: Atrial Fibrillation, Cancer, Chest Pain / Angina, Eye Di sorder, Hyperlipidemia, Hypertension, Musculoskeletal Disorder, Pneumonia Additional Past Medical History / Comment(s): 2006 nonhodgkins lymphoma-no treatment needed, 10/2018 reoccurrence nonhodgkins lymphoma-received 2 rounds chemo/pet scan recently showed persistent abnormal uptake in chest/abdomin, abdominal pain/constipation, newly diagnosed hepatitis C-pt waiting for drug to start treatment, DDD, chronic low back pain (sees Dr. Cummins for pain management), migraines, decreased renal function with steroid/nsaid use. History of Any Multi-Drug Resistant Organisms: None Reported Past Surgical History: Heart Catheterization, Orthopedic Surgery Additional Past Surgical History / Comment(s): 10/28/18 Exploratory laparotomy with tubo-ovarian abscess/R salpingo-oophorectomy/removal pelvic lymph nodes, 12/03/18 Port a cath, 12/20/18 cardiac cath-normal/CHIQUIS, 2016 cardiac cath, vaginal polypectomy, R shoulder arthroscopy/rotator cuff repair x2, R knee arthroscopy, ORIF R ankle with plates/screws. Past Anesthesia/Blood Transfusion Reactions: No Reported Reaction Past Psychological History: No Psychological Hx Reported Smoking Status: Current every day smoker Past Alcohol Use History: Occasional Past Drug Use History: None Reported - Past Family History Mother Family Medical History: COPD, Coronary Artery Disease (CAD), Myocardial Infarction ([place]), Seizure Disorder Additional Family Medical History / Comment(s): Mother had a [place] at the age of 76yrs. She from fall/facial injury and aspirated blood. Father Family Medical History: Coronary Artery Disease (CAD), Seizure Disorder Additional Family Medical History / Comment(s): Father had a seizure while driving resulting in a MVA in which he . Medications and Allergies Home Medications Medication Instructions Recorded Confirmed Type Sertraline [Zoloft] 100 mg PO DAILY 06/05/14 01/24/19 History Ascorbic Acid [Vitamin C] 500 mg PO DAILY 06/07/14 01/24/19 History Metoprolol Tartrate [Lopressor] 25 mg PO BID 10/08/15 01/24/19 History Biotin 5 mg PO DAILY 10/25/18 01/24/19 History Simvastatin [Zocor] 40 mg PO HS 10/25/18 01/24/19 History clonazePAM [KlonoPIN] 0.5 mg PO BID PRN 10/25/18 01/24/19 History Calcium Carbonate/Vitamin D3 1 cap PO BID 12/01/18 01/24/19 History [Calcium 600-Vit D3 500 Softgel] Lisinopril [Zestril] 2.5 mg PO DAILY 12/01/18 01/24/19 History Spironolactone 25 mg PO DAILY 12/01/18 01/24/19 History Fluticasone Nasal [place] [Flonase 2 spr EA NOSTRIL DAILY PRN 12/15/18 01/24/19 History Nasal [place]] Ondansetron HCl [Zofran] 4 mg PO Q4H PRN 12/15/18 01/24/19 History Psyllium Husk [Metamucil] 0.4 gm PO DAILY PRN 12/15/18 01/24/19 History oxyCODONE-APAP 10-325MG [Percocet 1 tab PO Q8HR PRN 12/20/18 01/24/19 History 10-325 mg] Amitriptyline HCl [Elavil] 25 mg PO HS 01/24/19 01/24/19 History Aspirin EC [Ecotrin Low Dose] 81 mg PO DAILY 01/24/19 01/24/19 History Cetirizine HCl [Zyrtec] 10 mg PO DAILY 01/24/19 01/24/19 History Cyclobenzaprine [Flexeril] 10 mg PO TID PRN 01/24/19 01/24/19 History Glecaprevir/Pibrentasvir [Mavyret 3 tab PO DAILY 01/24/19 01/24/19 History 100-40 mg Tablet] Jaylyn Vitamin 1 tab PO DAILY 01/24/19 01/24/19 History Lidocaine-Prilocaine Cream [Emla 1 applic TOPICAL DAILY PRN 01/24/19 01/24/19 History Cream 2.5%/2.5%] Magnesium Citrate 230mg 230 mg PO DAILY PRN 01/24/19 01/24/19 History Omeprazole 20 mg PO DAILY 01/24/19 01/24/19 History Oxycodone Myristate [Xtampza ER] 36 mg PO Q12H 01/24/19 01/24/19 History Polyethylene Glycol 3350 [Miralax] 17 gm PO DAILY 01/24/19 01/24/19 History Potassium 99 mg PO DAILY 01/24/19 01/24/19 History Sennosides [Senna] 17.2 mg PO HS 01/24/19 01/24/19 History Sertraline HCl [Zoloft] 50 mg PO DAILY 01/24/19 01/24/19 History Vitamin E (Dl,Tocopheryl Acet) 400 unit PO DAILY 01/24/19 01/24/19 History [Vitamin E] predniSONE 50 mg PO DIRECTED 01/24/19 01/24/19 History traZODone HCL 50 mg PO HS 01/24/19 01/24/19 History Allergies Allergy/AdvReac Type Severity Reaction Status Date / Time NSAIDS (Non-Steroidal AdvReac shuts Verified 01/24/19 10:58 Anti-Inflamma kidneys down Physical Exam Vitals: Vital Signs Temp Pulse Resp BP BP Pulse Ox 01/26/19 09:10 98 F 76 16 125/60 99 01/26/19 04:00 98.5 F 96 16 99/83 96 01/26/19 00:00 98.2 F 66 16 99/80 98 01/25/19 20:00 99.1 F 74 15 107/55 96 01/25/19 16:00 98.4 F 68 16 124/86 97 01/25/19 12:00 99.2 F 66 16 118/59 96 01/25/19 11:44 99.2 F 66 16 118/59 96 Intake and Output 01/25/19 01/26/19 01/26/19 22:59 06:59 14:59 Intake Total 1080 Balance 1080 Intake: Oral 1080 Other: Voiding Method Toilet # Voids 2 1 Results CBC & Chem 7: 01/26/19 06:38 01/26/19 06:38 Labs: Abnormal Lab Results - Last 24 Hours (Table) 01/26/19 01/26/19 Range/Units 06:38 06:38 RBC 3.69 L (3.80-5.40) m/uL Hgb 10.9 L (11.4-16.0) gm/dL Hct 33.3 L (34.0-46.0) % Plt Count 145 L (150-450) k/uL Lymphocytes # 0.6 L (1.0-4.8) k/uL Chloride 113 H (98-107) mmol/L Total Protein 6.1 L (6.3-8.2) g/dL Albumin 3.3 L (3.5-5.0) g/dL
[2019-01-26] MEDS: ATORVASTATIN 20 MG TAB PO SCH (22:10)
[2019-01-26] MEDS: AMITRIPTYLINE HCL 25 MG TAB PO SCH (22:10)
[2019-01-26] MEDS: traZODone HCL 50 MG TAB PO SCH (22:10)
[2019-01-26] MEDS: SENNOSIDES 8.6 MG TAB PO SCH (22:10)
[2019-01-27] MEDS: SALT AND SODA MOUTHWASH 1,000 ML PO SCH ×3 (00:38→10:21)
[2019-01-27 08:09] LABS: Basophils % (A) 1 %; Eosinophils % (A) 0 %; HCT 32.2 % (34.0-46.0); HGB 10.6 gm/dL (11.4-16.0); Lymphocytes # (A) 0.5 k/uL (1.0-4.8); Lymphocytes % (A) 15 %; MCH 29.6 pg (25.0-35.0); MCV 89.7 fL (80.0-100.0); Mean Platelet Volume 7.1; Monocytes # (A) 0.1 k/uL (0-1.0); Monocytes % (A) 2 %; Neutrophils # (A) 2.6 k/uL (1.3-7.7); Neutrophils % (A) 82 %; Platelet Count 141 k/uL (150-450); RBC 3.58 m/uL (3.80-5.40); RDW 15.9 % (11.5-15.5); WBC 3.2 k/uL (3.8-10.6)
[2019-01-27 08:41] LABS: ALT 36 U/L (9-52); AST 52 U/L (14-36); African American GFR (CKD) >90 (>60 ml/min/1.73 sqM); Albumin 3.1 g/dL (3.5-5.0); Alkaline Phosphatase 55 U/L (38-126); Anion Gap 7 mmol/L; Blood Urea Nitrogen 13 mg/dL (7-17); Calcium 8.5 mg/dL (8.4-10.2); Carbon Dioxide 22 mmol/L (22-30); Chloride 113 mmol/L (98-107); Glucose 73 mg/dL (74-99); Non-African American GFR(CKD) 90 (>60 ml/min/1.73 sqM); Potassium 4.2 mmol/L (3.5-5.1); Sodium 142 mmol/L (137-145); Total Bilirubin 0.6 mg/dL (0.2-1.3); Total Protein 5.7 g/dL (6.3-8.2)
[2019-01-27] MEDS: ASCORBIC ACID 500 MG TAB PO SCH (10:19)
[2019-01-27] MEDS: ENOXAPARIN 40 MG/0.4 ML SYRINGE SQ SCH (10:19)
[2019-01-27] MEDS: LORATADINE 10 MG TAB PO SCH (10:19)
[2019-01-27] MEDS: LISINOPRIL 2.5 MG TAB PO SCH (10:19)
[2019-01-27] MEDS: CALCIUM CARB-VIT D 500MG-200UN 1 EACH TAB PO SCH (10:19)
[2019-01-27] MEDS: predniSONE 50 MG TAB PO SCH (10:20)
[2019-01-27] MEDS: PANTOPRAZOLE 40 MG TABLET PO SCH (10:20)
[2019-01-27] MEDS: METOPROLOL TARTRATE 25 MG TAB PO SCH (10:20)
[2019-01-27] MEDS: POTASSIUM CHLORIDE ER 10 MEQ TAB.ER.PRT PO SCH (10:20)
[2019-01-27] MEDS: SERTRALINE 100 MG TAB PO SCH (10:21)
[2019-01-27] MEDS: POLYETHYLENE GLYCOL 3350 17 GM POWD.PACK PO SCH (10:21)
[2019-01-27] MEDS: SERTRALINE 50 MG TAB PO SCH (10:21)
[2019-01-27] MEDS: SPIRONOLACTONE 25 MG TAB PO SCH (10:21)
[2019-01-27] MEDS: VITAMIN E (DL,TOCOPHERYL ACET) 400 UNIT CAP PO SCH (10:21)
[2019-01-27] MEDS: XTAMPZA 36 MG PO SCH (10:49)
[2019-01-27 12:12] VITALS: BP 121/58; PULSE 71; TEMP 98.7
[2019-01-27] MEDS: SODIUM CHLORIDE 0.9% 1,000 ML IV SCH (12:20)
--- NOTE | 2019-01-27 18:00 | P.DS ---
Providers Date of admission: 01/24/19 08:33 Expected date of discharge: 01/27/19 Attending physician: Virgilio Gutiérrez Consults: 01/24/19 14:43 Consult Physician Routine Consulting Provider: Rohan Leung Consult Reason/Comments: medical mgmt, Dr. Weller pt Do you want consulting provider notified?: Yes Primary care physician: Frank Weller - Discharge Diagnosis(es) (1) NHL (non-Hodgkin's lymphoma) Status: Acute Priority: High Hospital Course: Admitted for ICE chemotherapy regimen. Patient tolerated treatment well. Only mild side effects to report. Her blood counts remained stable while inpatient, vital signs were stable, she remained active, independently ambulatory. No pain. She is looking forward to going home Assessment: 14 point review of systems is negative. Physically examination was benign Health Concerns: Patient denied acute health concerns. We reviewed precautions while on chemotherapy including handwashing, mouth care, temperature monitoring. Patient Condition at Discharge: Good Plan - Discharge Summary Discharge Rx Participant: Yes New Discharge Prescriptions: No Action Sertraline [Zoloft] 100 mg PO DAILY Ascorbic Acid [Vitamin C] 500 mg PO DAILY Metoprolol Tartrate [Lopressor] 25 mg PO BID Biotin 5 mg PO DAILY clonazePAM [KlonoPIN] 0.5 mg PO BID PRN PRN Reason: Anxiety Simvastatin [Zocor] 40 mg PO HS Lisinopril [Zestril] 2.5 mg PO DAILY Spironolactone 25 mg PO DAILY Calcium Carbonate/Vitamin D3 [Calcium 600-Vit D3 500 Softgel] 1 cap PO BID Ondansetron HCl [Zofran] 4 mg PO Q4H PRN PRN Reason: nausea Fluticasone Nasal [place] [Flonase Nasal [place]] 2 spr EA NOSTRIL DAILY PRN PRN Reason: Allergy Symptoms Psyllium Husk [Metamucil] 0.4 gm PO DAILY PRN PRN Reason: Constipation oxyCODONE-APAP 10-325MG [Percocet 10-325 mg] 1 tab PO Q8HR PRN PRN Reason: Breakthrough Pain Vitamin E (Dl,Tocopheryl Acet) [Vitamin E] 400 unit PO DAILY traZODone HCL 50 mg PO HS Sennosides [Senna] 17.2 mg PO HS Potassium 99 mg PO DAILY Polyethylene Glycol 3350 [Miralax] 17 gm PO DAILY Omeprazole 20 mg PO DAILY Lidocaine-Prilocaine Cream [Emla Cream 2.5%/2.5%] 1 applic TOPICAL DAILY PRN PRN Reason: port access Cyclobenzaprine [Flexeril] 10 mg PO TID PRN PRN Reason: Muscle Spasm Aspirin EC [Ecotrin Low Dose] 81 mg PO DAILY Amitriptyline HCl [Elavil] 25 mg PO HS Magnesium Citrate 230mg 230 mg PO DAILY PRN PRN Reason: Muscle Pain Jaylyn Vitamin 1 tab PO DAILY Oxycodone Myristate [Xtampza ER] 36 mg PO Q12H Sertraline HCl [Zoloft] 50 mg PO DAILY predniSONE 50 mg PO DIRECTED Cetirizine HCl [Zyrtec] 10 mg PO DAILY Glecaprevir/Pibrentasvir [Mavyret 100-40 mg Tablet] 3 tab PO DAILY Discharge Medication List Sertraline [Zoloft] 100 mg PO DAILY 06/05/14 [History] Ascorbic Acid [Vitamin C] 500 mg PO DAILY 06/07/14 [History] Metoprolol Tartrate [Lopressor] 25 mg PO BID 10/08/15 [History] Biotin 5 mg PO DAILY 10/25/18 [History] Simvastatin [Zocor] 40 mg PO HS 10/25/18 [History] clonazePAM [KlonoPIN] 0.5 mg PO BID PRN 10/25/18 [History] Calcium Carbonate/Vitamin D3 [Calcium 600-Vit D3 500 Softgel] 1 cap PO BID 12/01/18 [History] Lisinopril [Zestril] 2.5 mg PO DAILY 12/01/18 [History] Spironolactone 25 mg PO DAILY 12/01/18 [History] Fluticasone Nasal [place] [Flonase Nasal [place]] 2 spr EA NOSTRIL DAILY PRN 12/15/18 [History] Ondansetron HCl [Zofran] 4 mg PO Q4H PRN 12/15/18 [History] Psyllium Husk [Metamucil] 0.4 gm PO DAILY PRN 12/15/18 [History] oxyCODONE-APAP 10-325MG [Percocet 10-325 mg] 1 tab PO Q8HR PRN 12/20/18 [History] Amitriptyline HCl [Elavil] 25 mg PO HS 01/24/19 [History] Aspirin EC [Ecotrin Low Dose] 81 mg PO DAILY 01/24/19 [History] Cetirizine HCl [Zyrtec] 10 mg PO DAILY 01/24/19 [History] Cyclobenzaprine [Flexeril] 10 mg PO TID PRN 01/24/19 [History] Glecaprevir/Pibrentasvir [Mavyret 100-40 mg Tablet] 3 tab PO DAILY 01/24/19 [History] Jaylyn Vitamin 1 tab PO DAILY 01/24/19 [History] Lidocaine-Prilocaine Cream [Emla Cream 2.5%/2.5%] 1 applic TOPICAL DAILY PRN 01/24/19 [History] Magnesium Citrate 230mg 230 mg PO DAILY PRN 01/24/19 [History] Omeprazole 20 mg PO DAILY 01/24/19 [History] Oxycodone Myristate [Xtampza ER] 36 mg PO Q12H 01/24/19 [History] Polyethylene Glycol 3350 [Miralax] 17 gm PO DAILY 01/24/19 [History] Potassium 99 mg PO DAILY 01/24/19 [History] Sennosides [Senna] 17.2 mg PO HS 01/24/19 [History] Sertraline HCl [Zoloft] 50 mg PO DAILY 01/24/19 [History] Vitamin E (Dl,Tocopheryl Acet) [Vitamin E] 400 unit PO DAILY 01/24/19 [History] predniSONE 50 mg PO DIRECTED 01/24/19 [History] traZODone HCL 50 mg PO HS 01/24/19 [History] Follow up Appointment(s)/Referral(s): Virgilio Gutiérrez MD [STAFF PHYSICIAN] - 01/28/19 1:00 pm ([facility], make f/u appts) [facility], [NON-STAFF] - 1-2 Days Activity/Diet/Wound Care/Special Instructions: Activity as tolerate Diet as tolerated Lithia fluids Protein intake Fever monitoring Salt and soda for mouth care Discharge Disposition: HOME WITH HOME HEALTH SERVICES Pending Studies Pending Results: Nothing pending at this time
--- NOTE | 2019-01-31 17:10 | P.PN ---
Progress Note - Text Progress Note Date: 01/27/19 - Chief Complaint Tired Interval history: This is a very pleasant 63-year-old patient of Dr. Weller. Rather extensive medical history. Patient initially diagnosed as a lump in the right groin in 2016 had a biopsy done at [facility] and had a diagnosis of non- Hodgkin's lymphoma. Decision was made to follow with observation. She did not follow-up for the same. She had a possible breast lump ultrasound of the breast was negative. In October of this year she had new abdominal pain and computed tomography scan showed a mass in the right lower quadrant. Along with adenopathy. She underwent resection of the right ovary and right fallopian tube and pelvic lymph node biopsy was carried out. 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 PET scan that showed multiple areas of uptake including the left axilla. PET scan showed areas of multiple uptake including left axilla, mediastinum, left breast, multiple areas in the retro-peritoneal.. She was hepatitis C positive. 2-D echo showed EF of 45%. She also had a cardiac catheterization in October of this year came back to be negative. Patient was started with chemotherapy. Had a mixed response. Is now admitted for chemotherapy. Appetite is decreased. Does get abdominal pain and discomfort. Bowel movements are okay with laxatives. No fever no chills. Does have some nausea. Patient able to get to the bathroom. Today-feeling okay. Minimal nausea. Eating small amounts of food spaced out. Has been out of bed. Keen to go home. Review of systems: Was done for constitutional, cardiovascular, GI, pulmonary. relevant finding as above Current medications reviewed from today's electronic records Physical examination: VITAL SIGNS: 98.7, 71, 16, 121/58, 97% room air GENERAL: Sitting up in bed, awake EYES: Pupils equal. Conjunctiva pale. HEENT: External appearance of nose and ears normal, oral cavity normal. NECK: JVD not raised; masses not palpable. HEART: First and second heart sounds are normal; no edema. LUNGS: Respiratory rate normal; decreased breath sounds. ABDOMEN: Soft, mild right lower quadrant tenderness, possible mass liver spleen not palpable, no masses palpable. PSYCH: Alert and oriented x3; mood and affect normal INVESTIGATIONS, reviewed in the clinical context: White count 3.2 hemoglobin 10.6 platelets 141 potassium 4.2 creatinine 0.7 to Previous testing White count 3.9 hemoglobin 10.9 platelets 145 progression 4.1 crit 0.67 albumin 3.3 Assessment: -Non-Hodgkin's lymphoma for ICE regimen chemotherapy -Hepatitis C -Cardiomyopathy EF 35-40% cause unknown -Essential hypertension -Hyperlipidemia -Thrombocytopenia likely from chemotherapy -Nausea due to chemotherapy -Chronic nicotine dependence patient cigarette smoker. Does not want a nicotine patch Plan: Patient status post chemotherapy. Stable. Okay to go. Follow up with oncology. Thank you Dr. Gutiérrez
[2019-02-14] MEDS ORDERED: ETOPOSIDE 170 MG in SODIUM CHLORIDE 0.9% 500 ML 500 ML IV SCH (16:00)
== END 2019-01-27 13:33 | disposition home health service (06) | DRG 847 ==
LOC: 3NMEDONC 08:33
PROVIDERS: ADMIT Internal Medicine Hematology & Oncology; ATTEND Internal Medicine Hematology & Oncology
DX: Z51.11 Encounter for antineoplastic chemotherapy (principal); C85.18 Unspecified B-cell lymphoma, lymph nodes of multiple sites; I42.9 Cardiomyopathy, unspecified; D69.59 Other secondary thrombocytopenia; B19.20 Unspecified viral hepatitis C without hepatic coma; T45.1X5A Adverse effect of antineoplastic and immunosuppressive drugs, initial encounter; I10 Essential (primary) hypertension; E78.5 Hyperlipidemia, unspecified; Z87.01 Personal history of pneumonia (recurrent); G89.29 Other chronic pain; M54.5 Low back pain; G43.909 Migraine, unspecified, not intractable, without status migrainosus; F17.210 Nicotine dependence, cigarettes, uncomplicated; Z71.6 Tobacco abuse counseling; Z79.82 Long term (current) use of aspirin; Z79.891 Long term (current) use of opiate analgesic; Z79.899 Other long term (current) drug therapy; Z90.79 Acquired absence of other genital organ(s); Z90.721 Acquired absence of ovaries, unilateral; Z86.79 Personal history of other diseases of the circulatory system; Z87.42 Personal history of other diseases of the female genital tract; Z86.69 Personal history of other diseases of the nervous system and sense organs; Z98.890 Other specified postprocedural states; Z88.6 Allergy status to analgesic agent; Z82.5 Family history of asthma and other chronic lower respiratory diseases; Z82.49 Family history of ischemic heart disease and other diseases of the circulatory system; Z82.0 Family history of epilepsy and other diseases of the nervous system; Y92.230 Patient room in hospital as the place of occurrence of the external cause
CPT/HCPCS: 80053; 83735; 84100; 84550; 85025

== ENCOUNTER 2019-02-14 08:31 | Inpatient (IN) | payer MEDICARE, OTHER ==
[2019-02-14] MEDS ORDERED: ONDANSETRON 4 MG/2 ML VIAL IVP PRN (09:00)
[2019-02-14 10:20] LABS: Anisocytosis Slight; Basophils # (A) 0.1 k/uL (0-0.2); Basophils % (A) 1 %; Eosinophils # (A) 0.1 k/uL (0-0.7); Eosinophils % (A) 1 %; HGB 10.3 gm/dL (11.4-16.0); Lymphocytes # (A) 1.3 k/uL (1.0-4.8); Lymphocytes % (A) 15 %; MCH 29.6 pg (25.0-35.0); MCHC 33.1 g/dL (31.0-37.0); MCV 89.4 fL (80.0-100.0); Mean Platelet Volume 7.6; Monocytes # (A) 0.7 k/uL (0-1.0); Monocytes % (A) 8 %; Neutrophils % (A) 74 %; RBC 3.47 m/uL (3.80-5.40); RDW 17.2 % (11.5-15.5); WBC 8.2 k/uL (3.8-10.6)
[2019-02-14 10:26] LABS: ALT 28 U/L (9-52); AST 24 U/L (14-36); African American GFR (CKD) >90 (>60 ml/min/1.73 sqM); Albumin 3.9 g/dL (3.5-5.0); Alkaline Phosphatase 77 U/L (38-126); Anion Gap 9 mmol/L; Blood Urea Nitrogen 13 mg/dL (7-17); Calcium 9.3 mg/dL (8.4-10.2); Carbon Dioxide 25 mmol/L (22-30); Chloride 106 mmol/L (98-107); Glucose 123 mg/dL (74-99); Non-African American GFR(CKD) 82 (>60 ml/min/1.73 sqM); Phosphorus 4.3 mg/dL (2.5-4.5); Platelet Count 373 k/uL (150-450); Potassium 4.1 mmol/L (3.5-5.1); Sodium 140 mmol/L (137-145); Total Bilirubin 0.4 mg/dL (0.2-1.3); Total Protein 6.7 g/dL (6.3-8.2)
[2019-02-14] MEDS: FAMOTIDINE 20 MG/2 ML VIAL IV SCH (10:27)
[2019-02-14] MEDS: ONDANSETRON 16 MG in SODIUM CHLORIDE 0.9% 50 ML IVPB SCH (10:27)
[2019-02-14] MEDS: DEXAMETHASONE SOD PHOSPHATE 10 MG/ML 1 ML VIAL IV SCH (10:27)
[2019-02-14] MEDS: SODIUM CHLORIDE 0.9% 1,000 ML IV SCH ×2 (10:28→16:44)
[2019-02-14 10:53] LABS: Poikilocytosis (M) Present
[2019-02-14] MEDS ORDERED: LIDOCAINE-PRILOCAINE 2.5-2.5% CREAM 5 GM TUBE TOPICAL PRN (10:53)
[2019-02-14] MEDS ORDERED: ONDANSETRON 4 MG TAB PO PRN (10:53)
[2019-02-14] MEDS ORDERED: FLUTICASONE 50MCG/SPRAY NASAL 16GM EA NOSTRIL PRN (10:53)
[2019-02-14] MEDS ORDERED: MAGNESIUM OXIDE 400 MG TAB PO PRN (10:53)
[2019-02-14] MEDS ORDERED: CYCLOBENZAPRINE 10 MG TAB PO PRN (10:53)
[2019-02-14] MEDS ORDERED: clonazePAM 0.5 MG TAB PO PRN (10:53)
[2019-02-14] MEDS ORDERED: PSYLLIUM HUSK 100% 6 GM PACKET PO PRN (10:53)
[2019-02-14] MEDS ORDERED: PIBRENTASVIR PO SCH (11:00)
[2019-02-14] MEDS ORDERED: GLECAPREVIR PO SCH (11:00)
[2019-02-14] MEDS: ETOPOSIDE 170 MG in SODIUM CHLORIDE 0.9% 500 ML 500 ML IV SCH (11:11)
--- NOTE | 2019-02-14 13:01 | P.HPIM ---
History of Present Illness Ms. Quiroz is a very pleasant female, admitted for cycle #2 of ICE. Denies fevers, chills, adenopathy, difficulty swallowing, oral irritation, appetite is good, no nausea, vomiting, chest pain, palpitations, difficulty br eathing, cough, abdominal pain, distention, cramping, acute changes in bowel or bladder habits, swelling, rashes or pain, fully ambulatory. She has been on mavret for Hep C x 1 week, no rituxan ordered at this time. Malignancy Hx: referred here to establish care for a history of NHL. Lump in her right groin in 2006, biopsy at [facility], non-Hodgkin's lymphoma with lymph nodes both above and below the diaphragm. Observation recommended by her treating Onc Dr. Gonzalez. No f/u since 2007. Did well until 2018, she presented with non-specific discomfort in the left upper chest, mammogram 04/24/17 revealed an asymmetric density, US recommended. She became concerned, given this new f inding with her prior history. She was referred to Dr. Gutiérrez. CT CAP and labs were negative. Previous path never received. US of the breast was negative, 6 mth f/u was recommended. Patient was asymptomatic in regards to NHL so, decided to continue observation. Presented 10/25 c/o new onset of abdominal pain, progressive over 7-10 days, mainly localized the right lower quadrant, CT AP 10/27/18 showed mixed density mass in the right lower quadrant, with soft tissue density, felt to be related to phlegmon or abscess, mild right-sided inguinal adenopathy that was unchanged, borderline retroperitoneal lymph nodes unchanged. She underwent surgery on 10/28/18, with resection of the right ovary and right fallopian tube as well as pelvic lymph node biopsy. This showed evidence of high-grade B cell non-Hodgkin lymphoma in the pelvic lymph node, benign ovarian fibroma and atrophic fallopian tube with associated lymphoid tissue with atypical lymphoproliferative process. Double hit/triple hit was subsequently ruled out as MYC rearrangement was negative. PET showed multiple areas of uptake including left axilla, mediastinum, left breast, multiple areas in the retroperitoneum. She was found to be hepatitis C positive. ECHO revealed an EF of 35 %. She was thus started on CEOP 12/13/18 and had 2 cycles. PEG-GCSF was added with C2. PET scan after C 2 showed improvement, but still persistent uptake in multiple areas, including retropectoral, retroperitoneal, and pelvis. Because of the mixed response treatment changed to ICE. Review of Systems 14 point ROS is negative except as stated in HPI Past Medical History Past Medical History: Atrial Fibrillation, Cancer, Chest Pain / Angina, Eye Disorder, Hyperlipidemia, Hypertension, Liver Disease, Musculoskeletal Disorder, Pneumonia, Renal Disease Additional Past Medical History / Comment(s): 2006 nonhodgkins lymphoma-no treatment needed, 10/2018 reoccurrence nonhodgkins lymphoma-received 2 rounds chemo/pet scan recently showed persistent abnormal uptake in chest/abdomin-pt recieving ICE chemo, abdominal pain/constipation, newly diagnosed hepatitis C-pt just started medication to treat, DDD, chronic low back pain/cervical pain (sees Dr. Cummins for pain management), migraines, decreased renal function with steroid/nsaid use. History of Any Multi-Drug Resistant Organisms: None Reported Past Surgical History: Heart Catheterization, Orthopedic Surgery Additional Past Surgical History / Comment(s): 10/28/18 Exploratory laparotomy with tubo-ovarian cancer/R salpingo-oophorectomy/removal pelvic lymph nodes, 12/03/18 Port a cath, 12/20/18 cardiac cath-normal/CHIQUIS, 2015 cardiac cath, vaginal polypectomy, R shoulder arthroscopy/rotator cuff repair x2, R knee art hroscopy, ORIF R ankle with plates/screws. Past Anesthesia/Blood Transfusion Reactions: No Reported Reaction Past Psychological History: Anxiety, Depression Smoking Status: Light tobacco smoker Past Alcohol Use History: Occasional Past Drug Use History: None Reported - Past Family History Mother Family Medical History: COPD, Coronary Artery Disease (CAD), Myocardial Infarction (WA), Seizure Disorder Additional Family Medical History / Comment(s): Mother had a WA at the age of 76yrs. She from fall/facial injury and aspirated blood. Father Family Medical History: Coronary Artery Disease (CAD), Seizure Disorder Additional Family Medical History / Comment(s): Father had a seizure while driving resulting in a MVA in which he . Medications and Allergies Home Medications Medication Instructions Recorded Confirmed Type Sertraline [Zoloft] 100 mg PO DAILY 06/05/14 02/14/19 History Ascorbic Acid [Vitamin C] 500 mg PO DAILY 06/07/14 02/14/19 History Metoprolol Tartrate [Lopressor] 25 mg PO BID 10/08/15 02/14/19 History Biotin 5 mg PO DAILY 10/25/18 02/14/19 History Simvastatin [Zocor] 40 mg PO HS 10/25/18 02/14/19 History clonazePAM [KlonoPIN] 0.5 mg PO BID PRN 10/25/18 02/14/19 History Calcium Carbonate/Vitamin D3 1 cap PO BID 12/01/18 02/14/19 History [Calcium 600-Vit D3 500 Softgel] Lisinopril [Zestril] 2.5 mg PO DAILY 12/01/18 02/14/19 History Spironolactone 25 mg PO DAILY 12/01/18 02/14/19 History Fluticasone Nasal [place] [Flonase 2 spr EA NOSTRIL DAILY PRN 12/15/18 02/14/19 History Nasal [place]] Ondansetron HCl [Zofran] 4 mg PO Q4H PRN 12/15/18 02/14/19 History Psyllium Husk [Metamucil] 0.4 gm PO DAILY PRN 12/15/18 02/14/19 History oxyCODONE-APAP 10-325MG [Percocet 1 tab PO Q8HR PRN 12/20/18 02/14/19 History 10-325 mg] Amitriptyline HCl [Elavil] 25 mg PO HS 01/24/19 02/14/19 History Aspirin EC [Ecotrin Low Dose] 81 mg PO DAILY 01/24/19 02/14/19 History Cetirizine HCl [Zyrtec] 10 mg PO DAILY 01/24/19 02/14/19 History Cyclobenzaprine [Flexeril] 10 mg PO TID PRN 01/24/19 02/14/19 History Glecaprevir/Pibrentasvir [Mavyret 3 tab PO DAILY 01/24/19 02/14/19 History 100-40 mg Tablet] Jaylyn Vitamin 1 tab PO DAILY 01/24/19 02/14/19 History Lidocaine-Prilocaine Cream [Emla 1 applic TOPICAL DAILY PRN 01/24/19 02/14/19 History Cream 2.5%/2.5%] Magnesium Citrate 230mg 230 mg PO DAILY PRN 01/24/19 02/14/19 History Omeprazole 20 mg PO DAILY 01/24/19 02/14/19 History Oxycodone Myristate [Xtampza ER] 36 mg PO Q12H 01/24/19 02/14/19 History Polyethylene Glycol 3350 [Miralax] 17 gm PO DAILY 01/24/19 02/14/19 History Potassium 99 mg PO DAILY 01/24/19 02/14/19 History Sennosides [Senna] 17.2 mg PO HS 01/24/19 02/14/19 History Sertraline HCl [Zoloft] 50 mg PO DAILY 01/24/19 02/14/19 History Vitamin E (Dl,Tocopheryl Acet) 400 unit PO DAILY 01/24/19 02/14/19 History [Vitamin E] predniSONE 50 mg PO DIRECTED 01/24/19 02/14/19 History traZODone HCL 50 mg PO HS 01/24/19 02/14/19 History Allergies Allergy/AdvReac Type Severity Reaction Status Date / Time NSAIDS (Non-Steroidal AdvReac shuts Verified 02/14/19 11:26 Anti-Inflamma kidneys down Physical Exam Vitals: Vital Signs Temp Pulse Resp BP Pulse Ox 02/14/19 12:05 98 F 70 16 103/50 97 02/14/19 08:52 97.5 F L 107 H 17 117/62 97 Intake and Output 02/13/19 02/14/19 02/14/19 22:59 06:59 14:59 Other: Weight 60.01 kg - Constitutional General appearance: average body habitus, cooperative, no acute distress - EENT dentures Eyes: anicteric sclerae, EOMI ENT: hearing grossly normal, normal oropharynx - Neck Neck: no lymphadenopathy - Respiratory Respiratory: bilateral: CTA - Cardiovascular Rhythm: regular Heart sounds: normal: S1, S2 Abnormal Heart Sounds: no systolic murmur, no diastolic murmur, no rub, no S3 Gallop, no S4 Gallop, no click, no other leg Peripheral Edema: bilateral: None - Gastrointestinal General gastrointestinal: no absent bowel sounds, no decreased bowel sounds, no distended, no hepatomegaly, no hyperactive bowel sounds, normal bowel sounds, no organomegaly, no rigid, no scaphoid, soft, no splenomegaly, no tenderness, no umbilical hernia, no ventral hernia - Integumentary Integumentary: normal - Neurologic Neurologic: CNII-XII intact - Musculoskeletal Musculoskeletal: strength equal bilaterally - Psychiatric Psychiatric: A&O x's 3, appropriate affect, intact judgment & insight Results CBC & Chem 7: 02/14/19 09:40 02/14/19 09:40 Labs: Abnormal Lab Results - Last 24 Hours (Table) 02/14/19 02/14/19 Range/Units 09:40 09:40 RBC 3.47 L (3.80-5.40) m/uL Hgb 10.3 L (11.4-16.0) gm/dL Hct 31.0 L (34.0-46.0) % RDW 17.2 H (11.5-15.5) % Glucose 123 H (74-99) mg/dL Uric Acid 3.0 L (3.7-7.4) mg/dL Thrombosis Risk Factor Assmnt - DVT/VTE Prophylaxis DVT/VTE Prophylaxis: Pharmacologic Prophylaxis ordered - Choose All That Apply Any of the Below Risk Factors Present?: Yes Other Risk Factors: Yes Each Risk Factor Represents 2 Points: Age 61-74 years, Malignancy Other congenital or acquired thrombophilia - If yes, enter type in comment: No Thrombosis Risk Factor Assessment Total Risk Factor Score: 4 Thrombosis Risk Factor Assessment Level: Moderate Risk Assessment and Plan (1) NHL (non-Hodgkin's lymphoma) Narrative/Plan: Status post 2 cycles of CEOP but, due to mixed response regimen change to ICE. Patient is admitted for second cycle. Chemo orders reviewed Medications reconciled Internal medicine consult for medical management. Labs daily. Encourage ambulation Supportive medications ordered GI and DVT prophylaxis Pain management and bowel protocol Current Visit: Yes Status: Chronic Priority: High Code(s): C85.90 - NON- HODGKIN LYMPHOMA, UNSPECIFIED, UNSPECIFIED SITE SNOMED Code(s): 911613406
[2019-02-14] MEDS: SALT AND SODA MOUTHWASH 1,000 ML PO SCH ×3 (14:15→20:06)
--- NOTE | 2019-02-14 15:33 | P.CONS ---
History of Present Illness - Reason for Consult Congestive heart failure - History of Present Illness Patient developed pleasant 63-year-old female was admitted for inpatient chemotherapy, cycle 2 for non-Hodgkin's lymphoma with ifosfamide, etoposide and carboplatinum. Patient on IV fluids at 150 mL per hour for possible an expected hyperuricemia and hyperlipidemia. Patient doesn't have any complaints at this time. Patient although patient has history of congestive heart failure had a year in November was around 30-35% and presently 45% patient is on lisinopril which will be continued and the patient is not receiving any Lasix patient does have history of atrial fibrillation, presently sinus rhythm not and anti- correlation because of chemotherapy. Patient does have history of hepatitis C as well. We'll closely monitor for any heart failure exacerbation because of the fluid she is receiving. Patient is on retroviral therapy for hepatitis C as well. Patient denied any fever chills nausea vomiting abdominal pain. Is presently euvolemic. Review of Systems REVIEW OF SYSTEMS: CONSTITUTIONAL: No fever, no malaise, no fatigue. HEENT: No recent visual problems or hearing problems. Denied any sore throat. CARDIOVASCULAR: No chest pain, orthopnea, PND, no palpitations, no syncope. PULMONARY: No shortness of breath, no cough, no hemoptysis. GASTROINTESTINAL: No diarrhea, no nausea, no vomiting, no abdominal pain. NEUROLOGICAL: No headaches, no weakness, no numbness. HEMATOLOGICAL: Denies any bleeding or petechiae. GENITOURINARY: Denies any burning micturition, frequency, or urgency. MUSCULOSKELETAL/RHEUMATOLOGICAL: Denies any joint pain, swelling, or any muscle pain. ENDOCRINE: Denies any polyuria or polydipsia. The rest of the 14-point review of systems is negative. Past Medical History Past Medical History: Atrial Fibrillation, Cancer, Chest Pain / Angina, Eye Disorder, Hyperlipidemia, Hypertension, Liver Disease, Musculoskeletal Disorder, Pneumonia, Renal Disease Additional Past Medical History / Comment(s): 2006 nonhodgkins lymphoma-no treatment needed, 10/2018 reoccurrence nonhodgkins lymphoma-received 2 rounds chemo/pet scan recently showed persistent abnormal uptake in chest/abdomin-pt recieving ICE chemo, abdominal pain/constipation, newly diagnosed hepatitis C-pt just started medication to treat, DDD, chronic low back pain/cervical pain (sees Dr. Shuayto for pain management), migraines, decreased renal function with steroid/nsaid use. History of Any Multi-Drug Resistant Organisms: None Reported Past Surgical History: Heart Catheterization, Orthopedic Surgery Additional Past Surgical History / Comment(s): 10/28/18 Exploratory laparotomy with tubo-ovarian cancer/R salpingo-oophorectomy/removal pelvic lymph nodes, 12/03/18 Port a cath, 12/20/18 cardiac cath-normal/CHIQUIS, 2016 cardiac cath, vaginal polypectomy, R shoulder arthroscopy/rotator cuff repair x2, R knee arthroscopy, ORIF R ankle with plates/screws. Past Anesthesia/Blood Transfusion Reactions: No Reported Reaction Past Psychological History: Anxiety, Depression Smoking Status: Light tobacco smoker Past Alcohol Use History: Occasional Past Drug Use History: None Reported - Past Family History Mother Family Medical History: COPD, Coronary Artery Disease (CAD), Myocardial Infarction (AZ), Seizure Disorder Additional Family Medical History / Comment(s): Mother had a AZ at the age of 76yrs. She from fall/facial injury and aspirated blood. Father Family Medical History: Coronary Artery Disease (CAD), Seizure Disorder Additional Family Medical History / Comment(s): Father had a seizure while driving resulting in a MVA in which he . Medications and Allergies Home Medications Medication Instructions Recorded Confirmed Type Sertraline [Zoloft] 100 mg PO DAILY 06/05/14 02/14/19 History Ascorbic Acid [Vitamin C] 500 mg PO DAILY 06/07/14 02/14/19 History Metoprolol Tartrate [Lopressor] 25 mg PO BID 10/08/15 02/14/19 History Biotin 5 mg PO DAILY 10/25/18 02/14/19 History Simvastatin [Zocor] 40 mg PO HS 10/25/18 02/14/19 History clonazePAM [KlonoPIN] 0.5 mg PO BID PRN 10/25/18 02/14/19 History Calcium Carbonate/Vitamin D3 1 cap PO BID 12/01/18 02/14/19 History [Calcium 600-Vit D3 500 Softgel] Lisinopril [Zestril] 2.5 mg PO DAILY 12/01/18 02/14/19 History Spironolactone 25 mg PO DAILY 12/01/18 02/14/19 History Fluticasone Nasal [place] [Flonase 2 spr EA NOSTRIL DAILY PRN 12/15/18 02/14/19 History Nasal Zirconia] Ondansetron HCl [Zofran] 4 mg PO Q4H PRN 12/15/18 02/14/19 History Psyllium Husk [Metamucil] 0.4 gm PO DAILY PRN 12/15/18 02/14/19 History oxyCODONE-APAP 10-325MG [Percocet 1 tab PO Q8HR PRN 12/20/18 02/14/19 History 10-325 mg] Amitriptyline HCl [Elavil] 25 mg PO HS 01/24/19 02/14/19 History Aspirin EC [Ecotrin Low Dose] 81 mg PO DAILY 01/24/19 02/14/19 History Cetirizine HCl [Zyrtec] 10 mg PO DAILY 01/24/19 02/14/19 History Cyclobenzaprine [Flexeril] 10 mg PO TID PRN 01/24/19 02/14/19 History Glecaprevir/Pibrentasvir [Mavyret 3 tab PO DAILY 01/24/19 02/14/19 History 100-40 mg Tablet] Jaylyn Vitamin 1 tab PO DAILY 01/24/19 02/14/19 History Lidocaine-Prilocaine Cream [Emla 1 applic TOPICAL DAILY PRN 01/24/19 02/14/19 History Cream 2.5%/2.5%] Magnesium Citrate 230mg 230 mg PO DAILY PRN 01/24/19 02/14/19 History Omeprazole 20 mg PO DAILY 01/24/19 02/14/19 History Oxycodone Myristate [Xtampza ER] 36 mg PO Q12H 01/24/19 02/14/19 History Polyethylene Glycol 3350 [Miralax] 17 gm PO DAILY 01/24/19 02/14/19 History Potassium 99 mg PO DAILY 01/24/19 02/14/19 History Sennosides [Senna] 17.2 mg PO HS 01/24/19 02/14/19 History Sertraline HCl [Zoloft] 50 mg PO DAILY 01/24/19 02/14/19 History Vitamin E (Dl,Tocopheryl Acet) 400 unit PO DAILY 01/24/19 02/14/19 History [Vitamin E] predniSONE 50 mg PO DIRECTED 01/24/19 02/14/19 History traZODone HCL 50 mg PO HS 01/24/19 02/14/19 History Allergies Allergy/AdvReac Type Severity Reaction Status Date / Time NSAIDS (Non-Steroidal AdvReac shuts Verified 02/14/19 11:26 Anti-Inflamma kidneys down Physical Exam Vitals: Vital Signs Temp Pulse Resp BP Pulse Ox 02/14/19 14:45 70 02/14/19 12:05 98 F 70 16 103/50 97 02/14/19 08:52 97.5 F L 107 H 17 117/62 97 Intake and Output 02/14/19 02/14/19 02/14/19 06:59 14:59 22:59 Intake Total 1050 Balance 1050 Intake: Intake, IV Titration 1050 Amount Etoposide 170 mg In 500 Sodium Chloride 0.9% 500 ml 500 ml @ 508.5 mls/hr IV Q24H [facility] Rx#:[id number] Ondansetron 16 mg In 50 Sodium Chloride 0.9% 50 ml @ 232 mls/hr IVPB Q24H [facility] Rx#:[id number] Sodium Chloride 0.9% 1, 500 000 ml @ 125 mls/hr IV . Q8H [facility] Rx#:[id number] Other: Weight 60.01 kg PHYSICAL EXAMINATION: GENERAL: The patient is alert and oriented x3, not in any acute distress. Well developed, well nourished. HEENT: Pupils are round and equally reacting to light. EOMI. No scleral icterus. No conjunctival pallor. Normocephalic, atraumatic. No pharyngeal erythema. No thyromegaly. CARDIOVASCULAR: S1 and S2 present. No murmurs, rubs, or gallops. PULMONARY: Chest is clear to auscultation, no wheezing or crackles. ABDOMEN: Soft, nontender, nondistended, normoactive bowel sounds. No palpable organomegaly. MUSCULOSKELETAL: No joint swelling or deformity. EXTREMITIES: No cyanosis, clubbing, or pedal edema. NEUROLOGICAL: Gross neurological examination did not reveal any focal deficits. SKIN: No rashes. Results CBC & Chem 7: 02/14/19 09:40 02/14/19 09:40 Labs: Abnormal Lab Results - Last 24 Hours (Table) 02/14/19 02/14/19 Range/Units 09:40 09:40 RBC 3.47 L (3.80-5.40) m/uL Hgb 10.3 L (11.4-16.0) gm/dL Hct 31.0 L (34.0-46.0) % RDW 17.2 H (11.5-15.5) % Glucose 123 H (74-99) mg/dL Uric Acid 3.0 L (3.7-7.4) mg/dL Assessment and Plan Plan: -Non-Hodgkin's lymphoma: On chemotherapy continue to monitor closely for any hyperuricemia and hyperkalemia from tissue breakdown and cell lysis. Patient was closely monitored for heart failure exacerbation considering patient is re ceiving 1 25 mL of normal saline. -Atrial fibrillation: Presently sinus rhythm rate controlled not any anti- correlation because of chemotherapy -Congestive heart failure chronic systolic dysfunction presently euvolemic not in any Lasix patient is receiving IV fluids because of chemotherapy patient will be resumed on low-dose of lisinopril -Hypertension -Hyperlipidemia -Depression For above-mentioned chronic medical problems patient was already resumed on appropriate home medications.
[2019-02-14] MEDS: MAVYRET PO SCH (17:30)
[2019-02-14] MEDS: CALCIUM CARB-VIT D 500MG-200UN 1 EACH TAB PO SCH (20:07)
[2019-02-14] MEDS: oxyCODONE-APAP 10-325MG 1 EACH TAB PO PRN (20:07)
[2019-02-14] MEDS: ATORVASTATIN 20 MG TAB PO SCH (20:07)
[2019-02-14] MEDS: METOPROLOL TARTRATE 25 MG TAB PO SCH (20:07)
[2019-02-14] MEDS: SENNOSIDES 8.6 MG TAB PO SCH (20:07)
[2019-02-14] MEDS: traZODone HCL 50 MG TAB PO SCH (20:07)
[2019-02-14] MEDS: AMITRIPTYLINE HCL 25 MG TAB PO SCH (20:07)
[2019-02-15] MEDS: SODIUM CHLORIDE 0.9% 1,000 ML IV SCH ×3 (00:48→17:10)
[2019-02-15] MEDS: SALT AND SODA MOUTHWASH 1,000 ML PO SCH ×5 (00:49→20:25)
[2019-02-15 08:17] LABS: Albumin 3.6 g/dL (3.5-5.0); Anisocytosis Slight; Basophils # (A) 0.1 k/uL (0-0.2); Basophils % (A) 1 %; Calcium 9.3 mg/dL (8.4-10.2); Eosinophils % (A) 0 %; HCT 29.2 % (34.0-46.0); HGB 9.6 gm/dL (11.4-16.0); Lymphocytes # (A) 1.2 k/uL (1.0-4.8); Lymphocytes % (A) 16 %; MCH 29.8 pg (25.0-35.0); MCV 90.3 fL (80.0-100.0); Mean Platelet Volume 7.6; Monocytes # (A) 0.6 k/uL (0-1.0); Monocytes % (A) 8 %; Neutrophils # (A) 5.7 k/uL (1.3-7.7); Neutrophils % (A) 73 %; Phosphorus 4.7 mg/dL (2.5-4.5); Platelet Count 369 k/uL (150-450); Potassium 5.1 mmol/L (3.5-5.1); RBC 3.23 m/uL (3.80-5.40); RDW 17.6 % (11.5-15.5); Total Bilirubin 0.4 mg/dL (0.2-1.3); Total Protein 6.3 g/dL (6.3-8.2); Uric Acid 4.1 mg/dL (3.7-7.4); WBC 7.7 k/uL (3.8-10.6)
[2019-02-15] MEDS ORDERED: [UNRECOGNIZED DRUG - OTHER] PO SCH (09:00)
[2019-02-15] MEDS ORDERED: LISINOPRIL 2.5 MG TAB PO SCH (09:00)
[2019-02-15] MEDS ORDERED: MAVYRET PO SCH (09:00)
[2019-02-15] MEDS ORDERED: NON FORMULARY DRUG (Potassium [Potassium] 99 MG) PO SCH (09:00)
[2019-02-15] MEDS ORDERED: NON FORMULARY DRUG (Biotin [Biotin] 5 MG) PO SCH (09:00)
[2019-02-15] MEDS: LORATADINE 10 MG TAB PO SCH (09:05)
[2019-02-15] MEDS: ASCORBIC ACID 500 MG TAB PO SCH (09:05)
[2019-02-15] MEDS: PANTOPRAZOLE 40 MG TABLET PO SCH (09:05)
[2019-02-15] MEDS: METOPROLOL TARTRATE 25 MG TAB PO SCH ×2 (09:06→20:23)
[2019-02-15] MEDS: SERTRALINE 100 MG TAB PO SCH (09:06)
[2019-02-15] MEDS: POLYETHYLENE GLYCOL 3350 17 GM POWD.PACK PO SCH (09:06)
[2019-02-15] MEDS: ASPIRIN 81 MG PO SCH (09:06)
[2019-02-15] MEDS: LISINOPRIL 2.5 MG TAB PO SCH (09:06)
[2019-02-15] MEDS: CALCIUM CARB-VIT D 500MG-200UN 1 EACH TAB PO SCH ×2 (09:06→20:24)
[2019-02-15] MEDS: SPIRONOLACTONE 25 MG TAB PO SCH (09:06)
[2019-02-15] MEDS: VITAMIN E (DL,TOCOPHERYL ACET) 400 UNIT CAP PO SCH (09:07)
[2019-02-15] MEDS: SERTRALINE 50 MG TAB PO SCH (09:07)
[2019-02-15] MEDS: oxyCODONE-APAP 10-325MG 1 EACH TAB PO PRN ×2 (09:10→20:23)
[2019-02-15] MEDS: DEXAMETHASONE SOD PHOSPHATE 10 MG/ML 1 ML VIAL IV SCH (11:06)
[2019-02-15] MEDS: FAMOTIDINE 20 MG/2 ML VIAL IV SCH (11:06)
[2019-02-15] MEDS: ONDANSETRON 16 MG in SODIUM CHLORIDE 0.9% 50 ML IVPB SCH (11:06)
[2019-02-15] MEDS: ETOPOSIDE 170 MG in SODIUM CHLORIDE 0.9% 500 ML 500 ML IV SCH (11:56)
[2019-02-15] MEDS ORDERED: IFOSFAMIDE IV ONE (12:00)
[2019-02-15] MEDS ORDERED: MESNA IV ONE (12:00)
[2019-02-15] MEDS ORDERED: SODIUM CHLORIDE 0.9% IV ONE ×2 (12:00)
[2019-02-15] MEDS ORDERED: CARBOplatin 400 MG in SODIUM CHLORIDE 0.9% 250 ML IV ONE (12:00)
[2019-02-15] MEDS: MAVYRET PO SCH (13:24)
--- NOTE | 2019-02-15 15:36 | P.PN ---
Subjective Progress Note Date: 02/15/19 Principal diagnosis: Admitted for cycle #2 of ICE chemotherapy for non-Hodgkin lymphoma patient is a 63 year old female with a history of non-Hodgkin lymphoma treated in 2006. Patient began having abdominal pain in October of 2018. CT abdominal showed abscess in cecum. Had right coloectomy in october of 2018. Has completed one round of ICE chemotherapy. She is currently on day 2 of her second round of ICE chemotherapy. Patient currently sitting up in bed alert, in good spirits, able to make needs known, stating she has loss some appetite but is not new of current admit, she stating she is drinking and eating without any adverse effects, she states she has some abdominal pain but states it has improved since treatment, denies nausea, vomiting or diarrhea, denies shortness of breath, denies known masses or bruising, she states she does have some anxiety due to her son moving out of state. She states she does have some weakness but states she is ambulating without any issues. Objective - Vital Signs Vital signs: Vital Signs Temp 97.2 F L 02/15/19 08:00 Pulse 71 02/15/19 08:00 Resp 17 02/15/19 08:00 BP 100/49 02/15/19 08:00 Pulse Ox 99 02/15/19 08:00 Intake & Output 02/14/19 02/15/19 02/15/19 18:59 06:59 18:59 Intake Total 1050 2820 Balance 1050 2820 Weight 60.01 kg Intake: Intake, IV Titration 1050 1500 Amount Etoposide 170 mg In 500 Sodium Chloride 0.9% 500 ml 500 ml @ 508.5 mls/hr IV Q24H [facility] Rx#:[id number] Ondansetron 16 mg In 50 Sodium Chloride 0.9% 50 ml @ 232 mls/hr IVPB Q24H [facility] Rx#:[id number] Sodium Chloride 0.9% 1, 500 1500 000 ml @ 125 mls/hr IV . Q8H [facility] Rx#:[id number] Oral 1320 Other: # Voids 2 - Constitutional General appearance: Present: average body habitus, cooperative, no acute distress - EENT Eyes: Present: anicteric sclerae, EOMI ENT: Present: hearing grossly normal, normal oropharynx - Respiratory Respiratory: bilateral: CTA - Cardiovascular Rhythm: regular Heart sounds: normal: S1, S2 Abnormal Heart Sounds: Absent: systolic murmur, diastolic murmur, rub, S3 Gallop , S4 Gallop, click, other - Peripheral edema leg Peripheral Edema: bilateral: None - Gastrointestinal General gastrointestinal: Present: normal bowel sounds, soft, tenderness (mild) - Integumentary Integumentary: Present: normal, normal turgor - Neurologic Neurologic: Present: CNII-XII intact - Musculoskeletal Musculoskeletal: Present: strength equal bilaterally - Psychiatric Psychiatric: Present: A&O x's 3, appropriate affect, intact judgment & insight - Labs CBC & Chem 7: 02/15/19 07:39 02/15/19 07:39 Labs: Abnormal Lab Results - Last 24 Hours (Table) 02/15/19 02/15/19 Range/Units 07:39 07:39 RBC 3.23 L (3.80-5.40) m/uL Hgb 9.6 L (11.4-16.0) gm/dL Hct 29.2 L (34.0-46.0) % RDW 17.6 H (11.5-15.5) % Chloride 109 H (98-107) mmol/L Phosphorus 4.7 H (2.5-4.5) mg/dL Assessment and Plan (1) NHL (non-Hodgkin's lymphoma) Narrative/Plan: Status post 2 cycles of CEOP but, due to mixed response regimen change to ICE. Patient is admitted for second cycle. Internal medicine consult for medical management. Labs daily. Encourage ambulation Supportive medications ordered IV fluids Regular diet ordered GI and DVT prophylaxis Pain management and bowel protocol Current Visit: Yes Status: Chronic Priority: High Code(s): C85.90 - NON- HODGKIN LYMPHOMA, UNSPECIFIED, UNSPECIFIED SITE SNOMED Code(s): 961769528
[2019-02-15] MEDS: ENOXAPARIN 40 MG/0.4 ML SYRINGE SQ SCH (17:09)
[2019-02-15] MEDS: AMITRIPTYLINE HCL 25 MG TAB PO SCH (20:24)
[2019-02-15] MEDS: ATORVASTATIN 20 MG TAB PO SCH (20:24)
[2019-02-15] MEDS: traZODone HCL 50 MG TAB PO SCH (20:24)
[2019-02-15] MEDS: SENNOSIDES 8.6 MG TAB PO SCH (20:24)
[2019-02-15 22:18] VITALS: RESP 16
--- NOTE | 2019-02-15 23:22 | P.PN ---
Progress Note - Text Progress Note Date: 02/15/19 Interval history: This is a very pleasant 63-year-old patient of Dr. Weller. Rather extensive me dical history. Patient initially diagnosed as a lump in the right groin in 2016 had a biopsy done at [facility] and had a diagnosis of non-Hodgkin's lymphoma. Decision was made to follow with observation. She did not follow-up for the same. She had a possible breast lump ultrasound of the breast was negative. In October of this year she had new abdominal pain and computed tomography scan showed a mass in the right lower quadrant. Along with adenopathy. She underwent resection of the right ovary and right fallopian tube and pelvic lymph node biopsy was carried out. 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 PET scan that showed multiple areas of uptake including the left axilla. PET scan showed areas of multiple uptake including left axilla, mediastinum, left breast, multiple areas in the retro-peritoneal.. She was hepatitis C positive. 2-D echo showed EF of 45%. She also had a cardiac catheterization in October of this year came back to be negative. Patient was started with chemotherapy. Admitted with-cycle 2 of ice chemotherapy for non-Hodgkin's lymphoma. Today-sitting up. Eating small amounts, at frequent intervals. We slight nausea. No skin changes. No diarrhea. Review of systems: Was done for constitutional, cardiovascular, GI, pulmonary. relevant finding as above Active Medications Amitriptyline HCl (Elavil) 25 mg PO HS [facility] Last Admin: 02/15/19 20:24 Dose: 25 mg Documented by: Ascorbic Acid (Vitamin C) 500 mg PO DAILY [facility] Last Admin: 02/15/19 09:05 Dose: 500 mg Documented by: Aspirin (Aspirin) 81 mg PO DAILY [facility] Last Admin: 02/15/19 09:06 Dose: 81 mg Documented by: Atorvastatin Calcium (Lipitor) 20 mg PO HS [facility] Last Admin: 02/15/19 20:24 Dose: 20 mg Documented by: Calcium Carbonate (Oscal 500+D) 1 each PO BID [facility] Last Admin: 02/15/19 20:24 Dose: 1 each Documented by: Clonazepam (Klonopin) 0.5 mg PO BID PRN PRN Reason: Anxiety Cyclobenzaprine HCl (Flexeril) 10 mg PO TID PRN PRN Reason: Muscle Spasm Dexamethasone Sodium Phosphate (Decadron) 10 mg IV Q24H [facility] Stop: 02/16/19 10:01 Last Admin: 02/15/19 11:06 Dose: 10 mg Documented by: Enoxaparin Sodium (Lovenox) 40 mg SQ DAILY [facility] Last Admin: 02/15/19 17:09 Dose: 40 mg Documented by: Famotidine (Pepcid) 20 mg IV Q24H [facility] Stop: 02/16/19 10:01 Last Admin: 02/15/19 11:06 Dose: 20 mg Documented by: Fluticasone Propionate (Flonase Nasal [place]) 2 spray EA NOSTRIL DAILY PRN PRN Reason: Allergy Symptoms Sodium Chloride (Saline 0.9%) 1,000 mls @ 125 mls/hr IV .Q8H [facility] Last Admin: 02/15/19 17:10 Dose: 125 mls/hr Documented by: Ondansetron HCl 16 mg/ Sodium (Chloride) 58 mls @ 232 mls/hr IVPB Q24H [facility] Stop: 02/16/19 10:14 Last Admin: 02/15/19 11:06 Dose: 232 mls/hr Documented by: Ifosfamide 8,400 mg/ Sodium (Chloride) 1,168 mls @ 48.667 mls/hr IV ONCE ONE Stop: 02/16/19 11:59 Last Admin: 02/15/19 13:29 Dose: 48.667 mls/hr Documented by: [place] 8,400 mg/ Sodium (Chloride) 420 mls @ 17.5 mls/hr IV ONCE ONE Stop: 02/16/19 11:59 Last Admin: 02/15/19 13:29 Dose: 17.5 mls/hr Documented by: Etoposide 170 mg/ Sodium (Chloride) 508.5 mls @ 508.5 mls/hr IV Q24H [facility] Stop: 02/16/19 11:59 Last Admin: 02/15/19 11:56 Dose: 508.5 mls/hr Documented by: Lidocaine/Prilocaine (Emla Cream 2.5%/2.5%) 1 applic TOPICAL DAILY PRN PRN Reason: port access Lisinopril (Zestril) 2.5 mg PO DAILY [facility] Last Admin: 02/15/19 09:06 Dose: Not Given Documented by: Loratadine (Claritin) 10 mg PO DAILY [facility] Last Admin: 02/15/19 09:05 Dose: 10 mg Documented by: Magnesium Oxide (Mag-Ox) 200 mg PO DAILY PRN PRN Reason: Muscle Pain Metoprolol Tartrate (Lopressor) 25 mg PO BID [facility] Last Admin: 02/15/19 20:23 Dose: 25 mg Documented by: Mavyret (Glecaprevir /Pibrentasvir) 100- 40 Mg Tablet 3 tab PO DAILY@1630 [facility] Last Admin: 02/15/19 13:24 Dose: 3 tab Documented by: Ondansetron HCl (Zofran) 4 mg IVP Q6H PRN PRN Reason: Nausea Oxycodone/Acetaminophen (Percocet 10-325) 1 each PO Q6HR PRN PRN Reason: Breakthrough Pain Last Admin: 02/15/19 20:23 Dose: 1 each Documented by: Pantoprazole Sodium (Protonix) 40 mg PO AC-BRKFST [facility] Last Admin: 02/15/19 09:05 Dose: 40 mg Documented by: Polyethylene Glycol (Miralax) 17 gm PO DAILY [facility] Last Admin: 02/15/19 09:06 Dose: 17 gm Documented by: Psyllium Hydrophilic Mucilloid (Metamucil) 6 gm PO DAILY PRN PRN Reason: Constipation Senna (Senokot) 17.2 mg PO HS [facility] Last Admin: 02/15/19 20:24 Dose: 17.2 mg Documented by: Sertraline HCl (Zoloft) 100 mg PO DAILY [facility] Last Admin: 02/15/19 09:06 Dose: 100 mg Documented by: Sertraline HCl (Zoloft) 50 mg PO DAILY [facility] Last Admin: 02/15/19 09:07 Dose: 50 mg Documented by: Sodium Bicarbonate () 5 ml PO 5XD [facility] Last Admin: 02/15/19 20:25 Dose: 5 ml Documented by: Spironolactone (Aldactone) 25 mg PO DAILY [facility] Last Admin: 02/15/19 09:06 Dose: 25 mg Documented by: Trazodone HCl (Desyrel) 50 mg PO HS [facility] Last Admin: 02/15/19 20:24 Dose: 50 mg Documented by: Vitamin E (Vitamin E) 400 unit PO DAILY [facility] Last Admin: 02/15/19 09:07 Dose: 400 unit Documented by: Physical examination: VITAL SIGNS: 98.5, 71, 16, 103/51, 100% room air GENERAL: Propped up in bed, awake EYES: Pupils equal. Conjunctiva pale. HEENT: External appearance of nose and ears normal, oral cavity normal. NECK: JVD not raised; masses not palpable. HEART: First and second heart sounds are normal; no edema. LUNGS: Respiratory rate normal; decreased breath sounds. ABDOMEN: Soft, mild right lower quadrant tenderness, possible mass liver spleen not palpable, no masses palpable. PSYCH: Alert and oriented x3; mood and affect normal INVESTIGATIONS, reviewed in the clinical context: White count 7.7 hemoglobin 9.6 platelets 369 progression 5.1 creatinine 0.82 Assessment: -Non-Hodgkin's lymphoma for number to cycle a ICE regimen chemotherapy -Hepatitis C -Cardiomyopathy EF 35-40% cause unknown -Essential hypertension -Hyperlipidemia -Normocytic anemia likely from chemotherapy -Nausea due to chemotherapy -Chronic nicotine dependence patient cigarette smoker. Does not want a nicotine patch Plan: Continue current medication treatment plan. Care was discussed with the patient. Questions answered. Thank you Dr. Gutiérrez
[2019-02-16] MEDS: SALT AND SODA MOUTHWASH 1,000 ML PO SCH ×6 (00:01→23:38)
[2019-02-16 08:02] LABS: Anisocytosis Slight; Basophils # (A) 0.1 k/uL (0-0.2); Basophils % (A) 1 %; Eosinophils % (A) 0 %; HCT 26.7 % (34.0-46.0); HGB 8.7 gm/dL (11.4-16.0); Lymphocytes % (A) 19 %; MCH 29.5 pg (25.0-35.0); MCHC 32.7 g/dL (31.0-37.0); MCV 90.4 fL (80.0-100.0); Mean Platelet Volume 7.6; Monocytes # (A) 0.4 k/uL (0-1.0); Monocytes % (A) 7 %; Neutrophils # (A) 3.8 k/uL (1.3-7.7); Neutrophils % (A) 71 %; Platelet Count 355 k/uL (150-450); RBC 2.95 m/uL (3.80-5.40); RDW 17.8 % (11.5-15.5); WBC 5.4 k/uL (3.8-10.6)
[2019-02-16 08:17] LABS: Albumin 3.3 g/dL (3.5-5.0); Calcium 8.8 mg/dL (8.4-10.2); Phosphorus 4.1 mg/dL (2.5-4.5); Total Bilirubin 0.4 mg/dL (0.2-1.3); Total Protein 5.9 g/dL (6.3-8.2); Uric Acid 3.1 mg/dL (3.7-7.4)
[2019-02-16] MEDS: LISINOPRIL 2.5 MG TAB PO SCH (10:55)
[2019-02-16] MEDS: METOPROLOL TARTRATE 25 MG TAB PO SCH ×2 (10:56→22:22)
[2019-02-16] MEDS: CALCIUM CARB-VIT D 500MG-200UN 1 EACH TAB PO SCH ×2 (10:56→22:21)
[2019-02-16] MEDS: LORATADINE 10 MG TAB PO SCH (10:56)
[2019-02-16] MEDS: ASCORBIC ACID 500 MG TAB PO SCH (10:56)
[2019-02-16] MEDS: SPIRONOLACTONE 25 MG TAB PO SCH (10:56)
[2019-02-16] MEDS: ASPIRIN 81 MG PO SCH (10:56)
[2019-02-16] MEDS: SERTRALINE 100 MG TAB PO SCH (10:56)
[2019-02-16] MEDS: PANTOPRAZOLE 40 MG TABLET PO SCH (10:56)
[2019-02-16] MEDS: MAVYRET PO SCH (12:32)
[2019-02-16] MEDS: POLYETHYLENE GLYCOL 3350 17 GM POWD.PACK PO SCH (12:36)
[2019-02-16] MEDS: ENOXAPARIN 40 MG/0.4 ML SYRINGE SQ SCH (12:37)
[2019-02-16] MEDS: VITAMIN E (DL,TOCOPHERYL ACET) 400 UNIT CAP PO SCH (12:38)
[2019-02-16] MEDS: SERTRALINE 50 MG TAB PO SCH (12:38)
[2019-02-16] MEDS: ONDANSETRON 16 MG in SODIUM CHLORIDE 0.9% 50 ML IVPB SCH (14:26)
[2019-02-16] MEDS: FAMOTIDINE 20 MG/2 ML VIAL IV SCH (14:55)
[2019-02-16] MEDS: DEXAMETHASONE SOD PHOSPHATE 10 MG/ML 1 ML VIAL IV SCH (14:55)
[2019-02-16] MEDS: ETOPOSIDE 170 MG in SODIUM CHLORIDE 0.9% 500 ML 500 ML IV SCH (15:00)
[2019-02-16 16:28] VITALS: BMI 22.0
[2019-02-16] MEDS: SODIUM CHLORIDE 0.9% 1,000 ML IV SCH ×3 (17:23→22:21)
[2019-02-16] MEDS: AMITRIPTYLINE HCL 25 MG TAB PO SCH (22:20)
[2019-02-16] MEDS: SENNOSIDES 8.6 MG TAB PO SCH (22:21)
[2019-02-16] MEDS: ATORVASTATIN 20 MG TAB PO SCH (22:22)
[2019-02-16] MEDS: oxyCODONE-APAP 10-325MG 1 EACH TAB PO PRN (22:22)
[2019-02-16] MEDS: traZODone HCL 50 MG TAB PO SCH (22:22)
--- NOTE | 2019-02-16 23:19 | P.PN ---
Subjective Progress Note Date: 02/16/19 The patient is on day #3 of her chemotherapy today. She reports good tolerance. No untoward, new symptoms reported Objective - Vital Signs Vital signs: Vital Signs Temp 98.8 F 02/16/19 20:00 Pulse 71 02/16/19 20:00 Resp 16 02/16/19 20:00 BP 99/58 02/16/19 20:00 Pulse Ox 98 02/16/19 20:00 Intake & Output 02/16/19 02/16/19 02/17/19 06:59 18:59 06:59 Intake Total 1570 360 Balance 1570 360 Weight 60.01 kg Intake: Intake, IV Titration 500 Amount Sodium Chloride 0.9% 1, 500 000 ml @ 125 mls/hr IV . Q8H [facility] Rx#:[id number] Oral 1070 360 Other: # Voids 3 2 - Constitutional General appearance: Present: no acute distress - EENT Eyes: Present: EOMI, PERRLA ENT: Present: hearing grossly normal, normal oropharynx - Respiratory Respiratory: bilateral: CTA - Cardiovascular Rhythm: regular Heart sounds: normal: S1, S2 - Gastrointestinal General gastrointestinal: Present: normal bowel sounds, soft - Integumentary Integumentary: Present: normal - Neurologic Neurologic: Present: CNII-XII intact - Musculoskeletal Musculoskeletal: Present: strength equal bilaterally - Psychiatric Psychiatric: Present: A&O x's 3, appropriate affect - Labs CBC & Chem 7: 02/16/19 07:18 02/16/19 07:18 Labs: Abnormal Lab Results - Last 24 Hours (Table) 02/16/19 02/16/19 Range/Units 07:18 07:18 RBC 2.95 L (3.80-5.40) m/uL Hgb 8.7 L (11.4-16.0) gm/dL Hct 26.7 L (34.0-46.0) % RDW 17.8 H (11.5-15.5) % Chloride 111 H (98-107) mmol/L Glucose 70 L (74-99) mg/dL Uric Acid 3.1 L (3.7-7.4) mg/dL Total Protein 5.9 L (6.3-8.2) g/dL Albumin 3.3 L (3.5-5.0) g/dL Assessment and Plan (1) NHL (non-Hodgkin's lymphoma) Narrative/Plan: Diagnostic and therapeutic circumstances as described in the initial H&P. The patient is currently receiving second line chemotherapy with the ICE regimen. She is on day #3 with good tolerance. Continue treatment per protocol. Continue to monitor with labs and physical exams. Current Visit: Yes Status: Chronic Priority: High Code(s): C85.90 - NON- HODGKIN LYMPHOMA, UNSPECIFIED, UNSPECIFIED SITE SNOMED Code(s): 022648957 (2) Hepatitis C Narrative/Plan: The patient has just started treatment for the same under the care of infectious diseases. She is continuing her treatment while inpatient Current Visit: Yes Status: Acute Code(s): B19.20 - UNSPECIFIED VIRAL HEPATITIS C WITHOUT HEPATIC COMA SNOMED Code(s): 65059006
--- NOTE | 2019-02-17 00:36 | P.PN ---
Progress Note - Text Progress Note Date: 02/16/19 Interval history: This is a very pleasant 63-year-old patient of Dr. Weller. Rather extensive me dical history. Patient initially diagnosed as a lump in the right groin in 2016 had a biopsy done at [facility] and had a diagnosis of non-Hodgkin's lymphoma. Decision was made to follow with observation. She did not follow-up for the same. She had a possible breast lump ultrasound of the breast was negative. In October of this year she had new abdominal pain and computed tomography scan showed a mass in the right lower quadrant. Along with adenopathy. She underwent resection of the right ovary and right fallopian tube and pelvic lymph node biopsy was carried out. 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 PET scan that showed multiple areas of uptake including the left axilla. PET scan showed areas of multiple uptake including left axilla, mediastinum, left breast, multiple areas in the retro-peritoneal.. She was hepatitis C positive. 2-D echo showed EF of 45%. She also had a cardiac catheterization in October of this year came back to be negative. Patient was started with chemotherapy. Admitted with-cycle 2 of ice chemotherapy for non-Hodgkin's lymphoma. Today-continues to get a chemotherapy. No new issues. No pain. No nausea vomiting. Has been up to the bathroom. Rather cheerful Review of systems: Was done for constitutional, cardiovascular, GI, pulmonary. relevant finding as above Active Medications Amitriptyline HCl (Elavil) 25 mg PO HS [facility] Last Admin: 02/16/19 22:20 Dose: 25 mg Documented by: Ascorbic Acid (Vitamin C) 500 mg PO DAILY [facility] Last Admin: 02/16/19 10:56 Dose: 500 mg Documented by: Aspirin (Aspirin) 81 mg PO DAILY [facility] Last Admin: 02/16/19 10:56 Dose: 81 mg Documented by: Atorvastatin Calcium (Lipitor) 20 mg PO HS [facility] Last Admin: 02/16/19 22:22 Dose: 20 mg Documented by: Calcium Carbonate (Oscal 500+D) 1 each PO BID [facility] Last Admin: 02/16/19 22:21 Dose: 1 each Documented by: Clonazepam (Klonopin) 0.5 mg PO BID PRN PRN Reason: Anxiety Cyclobenzaprine HCl (Flexeril) 10 mg PO TID PRN PRN Reason: Muscle Spasm Enoxaparin Sodium (Lovenox) 40 mg SQ DAILY [facility] Last Admin: 02/16/19 12:37 Dose: 40 mg Documented by: Fluticasone Propionate (Flonase Nasal [place]) 2 spray EA NOSTRIL DAILY PRN PRN Reason: Allergy Symptoms Sodium Chloride (Saline 0.9%) 1,000 mls @ 125 mls/hr IV .Q8H [facility] Last Admin: 02/16/19 22:21 Dose: 125 mls/hr Documented by: Lidocaine/Prilocaine (Emla Cream 2.5%/2.5%) 1 applic TOPICAL DAILY PRN PRN Reason: port access Lisinopril (Zestril) 2.5 mg PO DAILY [facility] Last Admin: 02/16/19 10:55 Dose: 2.5 mg Documented by: Loratadine (Claritin) 10 mg PO DAILY [facility] Last Admin: 02/16/19 10:56 Dose: 10 mg Documented by: Magnesium Oxide (Mag-Ox) 200 mg PO DAILY PRN PRN Reason: Muscle Pain Metoprolol Tartrate (Lopressor) 25 mg PO BID [facility] Last Admin: 02/16/19 22:22 Dose: 25 mg Documented by: Mavyret (Glecaprevir /Pibrentasvir) 100- 40 Mg Tablet 3 tab PO DAILY@1630 [facility] Last Admin: 02/16/19 12:32 Dose: 3 tab Documented by: Ondansetron HCl (Zofran) 4 mg IVP Q6H PRN PRN Reason: Nausea Oxycodone/Acetaminophen (Percocet 10-325) 1 each PO Q6HR PRN PRN Reason: Breakthrough Pain Last Admin: 02/16/19 22:22 Dose: 1 each Documented by: Pantoprazole Sodium (Protonix) 40 mg PO AC-BRKFST [facility] Last Admin: 02/16/19 10:56 Dose: 40 mg Documented by: Polyethylene Glycol (Miralax) 17 gm PO DAILY [facility] Last Admin: 02/16/19 12:36 Dose: 17 gm Documented by: Psyllium Hydrophilic Mucilloid (Metamucil) 6 gm PO DAILY PRN PRN Reason: Constipation Senna (Senokot) 17.2 mg PO [facility] Last Admin: 02/16/19 22:21 Dose: 17.2 mg Documented by: Sertraline HCl (Zoloft) 100 mg PO DAILY [facility] Last Admin: 02/16/19 10:56 Dose: 100 mg Documented by: Sertraline HCl (Zoloft) 50 mg PO DAILY [facility] Last Admin: 02/16/19 12:38 Dose: 50 mg Documented by: Sodium Bicarbonate () 5 ml PO 5XD [facility] Last Admin: 02/16/19 23:38 Dose: Not Given Documented by: Spironolactone (Aldactone) 25 mg PO DAILY [facility] Last Admin: 02/16/19 10:56 Dose: 25 mg Documented by: Trazodone HCl (Desyrel) 50 mg PO HS [facility] Last Admin: 02/16/19 22:22 Dose: 50 mg Documented by: Vitamin E (Vitamin E) 400 unit PO DAILY [facility] Last Admin: 02/16/19 12:38 Dose: 400 unit Documented by: Physical examination: VITAL SIGNS: 98, 83, 16, 96/60, 97% on room air GENERAL: Sitting up in the bed, comfortable EYES: Pupils equal. Conjunctiva pale. HEENT: External appearance of nose and ears normal, oral cavity normal. NECK: JVD not raised; masses not palpable. HEART: First and second heart sounds are normal; no edema. LUNGS: Respiratory rate normal; decreased breath sounds. ABDOMEN: Soft, mild right lower quadrant tenderness, possible mass liver spleen not palpable, no masses palpable. PSYCH: Alert and oriented x3; mood and affect normal INVESTIGATIONS, reviewed in the clinical context: White count 5.4 hemoglobin 8.7 platelets 355 progression 4 creatinine 0.81 uric acid 3.1 White count 7.7 hemoglobin 9.6 platelets 369 progression 5.1 creatinine 0.82 Assessment: -Non-Hodgkin's lymphoma for number to cycle a ICE regimen chemotherapy -Hepatitis C -Cardiomyopathy EF 35-40% cause unknown -Essential hypertension -Hyperlipidemia -Normocytic anemia likely from chemotherapy -Nausea due to chemotherapy -Chronic nicotine dependence patient cigarette smoker. Does not want a nicotine patch Plan: Stable. Today will be the last day for chemotherapy. Care was discussed with the patient. Thank you Dr. Gutiérrez
[2019-02-17] MEDS: SODIUM CHLORIDE 0.9% 1,000 ML IV SCH ×2 (02:00→05:35)
[2019-02-17] MEDS: SALT AND SODA MOUTHWASH 1,000 ML PO SCH (05:35)
[2019-02-17] MEDS: PANTOPRAZOLE 40 MG TABLET PO SCH (07:59)
[2019-02-17] MEDS: SPIRONOLACTONE 25 MG TAB PO SCH (07:59)
[2019-02-17] MEDS: METOPROLOL TARTRATE 25 MG TAB PO SCH (07:59)
[2019-02-17] MEDS: SERTRALINE 100 MG TAB PO SCH (08:00)
[2019-02-17] MEDS: LISINOPRIL 2.5 MG TAB PO SCH (08:00)
[2019-02-17] MEDS: CALCIUM CARB-VIT D 500MG-200UN 1 EACH TAB PO SCH (08:00)
[2019-02-17] MEDS: ASCORBIC ACID 500 MG TAB PO SCH (08:00)
[2019-02-17] MEDS: LORATADINE 10 MG TAB PO SCH (08:00)
[2019-02-17] MEDS: VITAMIN E (DL,TOCOPHERYL ACET) 400 UNIT CAP PO SCH (08:02)
[2019-02-17] MEDS: ENOXAPARIN 40 MG/0.4 ML SYRINGE SQ SCH (08:02)
[2019-02-17] MEDS: SERTRALINE 50 MG TAB PO SCH (08:03)
[2019-02-17] MEDS: ASPIRIN 81 MG PO SCH (08:12)
[2019-02-17 08:29] VITALS: BP 102/54; PULSE 78; TEMP 97.6
[2019-02-17 08:30] LABS: Anisocytosis Slight; Basophils # (A) 0.1 k/uL (0-0.2); Basophils % (A) 1 %; Eosinophils % (A) 0 %; HCT 29.4 % (34.0-46.0); HGB 9.2 gm/dL (11.4-16.0); Lymphocytes # (A) 0.6 k/uL (1.0-4.8); Lymphocytes % (A) 10 %; MCH 28.9 pg (25.0-35.0); MCHC 31.4 g/dL (31.0-37.0); MCV 92.1 fL (80.0-100.0); Mean Platelet Volume 8.1; Monocytes # (A) 0.1 k/uL (0-1.0); Monocytes % (A) 2 %; Neutrophils # (A) 4.9 k/uL (1.3-7.7); Neutrophils % (A) 87 %; Platelet Count 380 k/uL (150-450); RBC 3.19 m/uL (3.80-5.40); RDW 17.9 % (11.5-15.5); WBC 5.6 k/uL (3.8-10.6)
[2019-02-17 08:41] LABS: Albumin 3.2 g/dL (3.5-5.0); Phosphorus 4.2 mg/dL (2.5-4.5); Potassium 4.1 mmol/L (3.5-5.1); Total Bilirubin 0.7 mg/dL (0.2-1.3); Total Protein 5.9 g/dL (6.3-8.2); Uric Acid 3.9 mg/dL (3.7-7.4)
[2019-02-17] MEDS: POLYETHYLENE GLYCOL 3350 17 GM POWD.PACK PO SCH (09:13)
--- NOTE | 2019-02-17 11:11 | P.DS ---
Providers Date of admission: 02/14/19 08:31 Expected date of discharge: 02/17/19 Attending physician: Virgilio Gutiérrez Consults: 02/15/19 10:39 Consult Physician Routine Consulting Provider: Rohan Leung Consult Reason/Comments: medical managment Do you want consulting provider notified?: Already Contacted Primary care physician: Frank Weller - Discharge Diagnosis(es) (1) NHL (non-Hodgkin's lymphoma) Current Visit: Yes Status: Chronic Priority: High Hospital Course: Patient was admitted on Thursday to begin her second cycle of ICE for less than optimal response to her initial treatment for non-Hodgkin's lymphoma. She tolerated the treatment well, only mild side effects, vital signs and labs remained stable, today patient has no physical complaints, she is ambulatory, she has had a bowel movement. Assessment: Well-developed, well-nourished, no acute distress, alert and oriented 4, normocephalic, atraumatic, anicteric sclera, near complete alopecia, no oral irritation, S1, S2, skin warm and dry, bilateral breath sounds clear to ausculta tion, respiratory effort unlabored, abd soft, non-tender. bowel sounds are positive, no lower extremity swelling Health Concerns: none discussed Pertinent Studies: none Procedures: none Patient Condition at Discharge: Stable Plan - Discharge Summary Discharge Rx Participant: No New Discharge Prescriptions: New Acyclovir [Zovirax] 400 mg PO BID #28 tab No Action Sertraline [Zoloft] 100 mg PO DAILY Ascorbic Acid [Vitamin C] 500 mg PO DAILY Metoprolol Tartrate [Lopressor] 25 mg PO BID Biotin 5 mg PO DAILY clonazePAM [KlonoPIN] 0.5 mg PO BID PRN PRN Reason: Anxiety Simvastatin [Zocor] 40 mg PO HS Lisinopril [Zestril] 2.5 mg PO DAILY Spironolactone 25 mg PO DAILY Calcium Carbonate/Vitamin D3 [Calcium 600-Vit D3 500 Softgel] 1 cap PO BID Ondansetron HCl [Zofran] 4 mg PO Q4H PRN PRN Reason: nausea Fluticasone Nasal [place] [Flonase Nasal [place]] 2 spr EA NOSTRIL DAILY PRN PRN Reason: Allergy Symptoms Psyllium Husk [Metamucil] 0.4 gm PO DAILY PRN PRN Reason: Constipation oxyCODONE-APAP 10-325MG [Percocet 10-325 mg] 1 tab PO Q8HR PRN PRN Reason: Breakthrough Pain Vitamin E (Dl,Tocopheryl Acet) [Vitamin E] 400 unit PO DAILY traZODone HCL 50 mg PO HS Sennosides [Senna] 17.2 mg PO HS Potassium 99 mg PO DAILY Polyethylene Glycol 3350 [Miralax] 17 gm PO DAILY Omeprazole 20 mg PO DAILY Lidocaine-Prilocaine Cream [Emla Cream 2.5%/2.5%] 1 applic TOPICAL DAILY PRN PRN Reason: port access Cyclobenzaprine [Flexeril] 10 mg PO TID PRN PRN Reason: Muscle Spasm Aspirin EC [Ecotrin Low Dose] 81 mg PO DAILY Amitriptyline HCl [Elavil] 25 mg PO HS Magnesium Citrate 230mg 230 mg PO DAILY PRN PRN Reason: Muscle Pain Jaylyn Vitamin 1 tab PO DAILY Oxycodone Myristate [Xtampza ER] 36 mg PO Q12H Sertraline HCl [Zoloft] 50 mg PO DAILY predniSONE 50 mg PO DIRECTED Cetirizine HCl [Zyrtec] 10 mg PO DAILY Glecaprevir/Pibrentasvir [Mavyret 100-40 mg Tablet] 3 tab PO DAILY Discharge Medication List Sertraline [Zoloft] 100 mg PO DAILY 06/05/14 [History] Ascorbic Acid [Vitamin C] 500 mg PO DAILY 06/07/14 [History] Metoprolol Tartrate [Lopressor] 25 mg PO BID 10/08/15 [History] Biotin 5 mg PO DAILY 10/25/18 [History] Simvastatin [Zocor] 40 mg PO HS 10/25/18 [History] clonazePAM [KlonoPIN] 0.5 mg PO BID PRN 10/25/18 [History] Calcium Carbonate/Vitamin D3 [Calcium 600-Vit D3 500 Softgel] 1 cap PO BID 12/01/18 [History] Lisinopril [Zestril] 2.5 mg PO DAILY 12/01/18 [History] Spironolactone 25 mg PO DAILY 12/01/18 [History] Fluticasone Nasal [place] [Flonase Nasal [place]] 2 spr EA NOSTRIL DAILY PRN 12/15/18 [History] Ondansetron HCl [Zofran] 4 mg PO Q4H PRN 12/15/18 [History] Psyllium Husk [Metamucil] 0.4 gm PO DAILY PRN 12/15/18 [History] oxyCODONE-APAP 10-325MG [Percocet 10-325 mg] 1 tab PO Q8HR PRN 12/20/18 [History] Amitriptyline HCl [Elavil] 25 mg PO HS 01/24/19 [History] Aspirin EC [Ecotrin Low Dose] 81 mg PO DAILY 01/24/19 [History] Cetirizine HCl [Zyrtec] 10 mg PO DAILY 01/24/19 [History] Cyclobenzaprine [Flexeril] 10 mg PO TID PRN 01/24/19 [History] Glecaprevir/Pibrentasvir [Mavyret 100-40 mg Tablet] 3 tab PO DAILY 01/24/19 [History] Jaylyn Vitamin 1 tab PO DAILY 01/24/19 [History] Lidocaine-Prilocaine Cream [Emla Cream 2.5%/2.5%] 1 applic TOPICAL DAILY PRN 01/24/19 [History] Magnesium Citrate 230mg 230 mg PO DAILY PRN 01/24/19 [History] Omeprazole 20 mg PO DAILY 01/24/19 [History] Oxycodone Myristate [Xtampza ER] 36 mg PO Q12H 01/24/19 [History] Polyethylene Glycol 3350 [Miralax] 17 gm PO DAILY 01/24/19 [History] Potassium 99 mg PO DAILY 01/24/19 [History] Sennosides [Senna] 17.2 mg PO HS 01/24/19 [History] Sertraline HCl [Zoloft] 50 mg PO DAILY 01/24/19 [History] Vitamin E (Dl,Tocopheryl Acet) [Vitamin E] 400 unit PO DAILY 01/24/19 [History] predniSONE 50 mg PO DIRECTED 01/24/19 [History] traZODone HCL 50 mg PO HS 01/24/19 [History] Acyclovir [Zovirax] 400 mg PO BID #28 tab 02/17/19 [Rx] Follow up Appointment(s)/Referral(s): Virgilio Gutiérrez MD [STAFF PHYSICIAN] - 02/18/19 1:30 pm [facility], [NON-STAFF] - 1-2 Days Activity/Diet/Wound Care/Special Instructions: Activity as tolerated Diet as tolerated Hand washing Rex fluids Temp monitoring-call office for temp>100.4F Follow up appts Salt and soda oral rinse Discharge Disposition: HOME SELF-CARE Pending Studies Pending Results: none
--- NOTE | 2019-02-18 21:23 | P.PN ---
Progress Note - Text Progress Note Date: 02/17/19 Interval history: This is a very pleasant 63-year-old patient of Dr. Weller. Rather extensive me dical history. Patient initially diagnosed as a lump in the right groin in 2016 had a biopsy done at [facility] and had a diagnosis of non-Hodgkin's lymphoma. Decision was made to follow with observation. She did not follow-up for the same. She had a possible breast lump ultrasound of the breast was negative. In October of this year she had new abdominal pain and computed tomography scan showed a mass in the right lower quadrant. Along with adenopathy. She underwent resection of the right ovary and right fallopian tube and pelvic lymph node biopsy was carried out. 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 PET scan that showed multiple areas of uptake including the left axilla. PET scan showed areas of multiple uptake including left axilla, mediastinum, left breast, multiple areas in the retro-peritoneal.. She was hepatitis C positive. 2-D echo showed EF of 45%. She also had a cardiac catheterization in October of this year came back to be negative. Patient was started with chemotherapy. Admitted with-cycle 2 of ice chemotherapy for non-Hodgkin's lymphoma. Today-finished her chemotherapy. Stable. Tolerated diet. No new issues. keen to go home Review of systems: Was done for constitutional, cardiovascular, GI, pulmonary. relevant finding as above current medications reviewed in today's electronic records Physical examination: VITAL SIGNS: 97.6, 78, 16, 102/54, 99% room air GENERAL: Sitting up in the bed, comfortable EYES: Pupils equal. Conjunctiva pale. HEENT: External appearance of nose and ears normal, oral cavity normal. NECK: JVD not raised; masses not palpable. HEART: First and second heart sounds are normal; no edema. LUNGS: Respiratory rate normal; decreased breath sounds. ABDOMEN: Soft, non- tenderness, liver spleen not palpable, no masses palpable. PSYCH: Alert and oriented x3; mood and affect normal INVESTIGATIONS, reviewed in the clinical context: white count 5.6 and troponin point to percussion 4.1 creatinine 0.89 Assessment: -Non-Hodgkin's lymphoma for - ICE regimen chemotherapy -Hepatitis C -Cardiomyopathy EF 35-40% cause unknown -Essential hypertension -Hyperlipidemia -Normocytic anemia likely from chemotherapy -Nausea due to chemotherapy -Chronic nicotine dependence patient cigarette smoker. Plan: Stable. no new issues. Care discussed with patient and . We'll going home today Thank you Dr. Gutiérrez
== END 2019-02-17 11:12 | disposition home or self-care (01) | DRG 847 ==
LOC: 3NMEDONC 08:31
PROVIDERS: ADMIT Internal Medicine Hematology & Oncology; ATTEND Internal Medicine Hematology & Oncology
DX: Z51.11 Encounter for antineoplastic chemotherapy (principal); C83.36 Diffuse large B-cell lymphoma, intrapelvic lymph nodes; I50.22 Chronic systolic (congestive) heart failure; I42.9 Cardiomyopathy, unspecified; I11.0 Hypertensive heart disease with heart failure; D64.81 Anemia due to antineoplastic chemotherapy; B19.20 Unspecified viral hepatitis C without hepatic coma; T45.1X5A Adverse effect of antineoplastic and immunosuppressive drugs, initial encounter; E78.5 Hyperlipidemia, unspecified; F32.9 Major depressive disorder, single episode, unspecified; F41.9 Anxiety disorder, unspecified; K76.9 Liver disease, unspecified; D27.9 Benign neoplasm of unspecified ovary; G43.909 Migraine, unspecified, not intractable, without status migrainosus; G89.29 Other chronic pain; M54.5 Low back pain; M54.2 Cervicalgia; F17.210 Nicotine dependence, cigarettes, uncomplicated; Z71.6 Tobacco abuse counseling; Z79.82 Long term (current) use of aspirin; Z79.891 Long term (current) use of opiate analgesic; Z79.899 Other long term (current) drug therapy; Z87.01 Personal history of pneumonia (recurrent); Z86.79 Personal history of other diseases of the circulatory system; Z90.79 Acquired absence of other genital organ(s); Z90.721 Acquired absence of ovaries, unilateral; Z86.69 Personal history of other diseases of the nervous system and sense organs; Z98.890 Other specified postprocedural states; Z88.6 Allergy status to analgesic agent; Z82.5 Family history of asthma and other chronic lower respiratory diseases; Z82.49 Family history of ischemic heart disease and other diseases of the circulatory system; Z82.0 Family history of epilepsy and other diseases of the nervous system
CPT/HCPCS: 80053; 84100; 84550; 85025

== ENCOUNTER → 2019-03-04 | Outpatient (CLI) | payer MEDICARE, OTHER ==
--- NOTE | 2019-03-07 07:46 | PE ---
EXAMINATION TYPE: PET CT fusion skull to thigh DATE OF EXAM: 03/04/2019 COMPARISON: Prior PET/CT January 25, 2019 and older study November 20, 2018. HISTORY: Non-Hodgkin's lymphoma originally diagnosed right groin biopsy October 26, 2018. TECHNIQUE: Following the intravenous administration of 12.9 mCi of F-18 FDG, whole body images are p erformed from the skull base to the midthigh. Images are reviewed on the computer in the coronal, ax ial, and sagittal planes. Reconstructed rotating images are created on independent workstation and r eviewed on the computer. A noncontrast CT is performed in conjunction with the PET scan. SCAN: Subsequent Scan FINDINGS: MEDIASTINUM MEAN SUV : 0.96 LIVER MEAN SUV : 1.81 SKULL BASE AND NECK: No new areas of abnormal adenopathy or hypermetabolic uptake. CHEST, MEDIASTINUM, AND HILAR REGION: Complete resolution of hypermetabolic left retropectoral adenop athy along with hypermetabolic left axillary adenopathy and internal mammary adenopathy. No new hyper metabolic or greater than 1 cm lymph nodes are identified currently. ABDOMEN AND PELVIS: No residual hypermetabolic adenopathy in current study with particular attention to retrocrural and retroperitoneal regions. No hypermetabolic posterior subcutaneous lesions on curre nt study. No hypermetabolic right groin adenopathy on the current study. No new hypermetabolic uptake . No new greater than 1 cm adenopathy. OSSEOUS STRUCTURES: No new areas of abnormal hypermetabolic uptake. OTHER CT: Stable right subclavian Mediport catheter. Redemonstration of evidence for granulomatous di sease. Persistent mild splenomegaly at 14.1 cm axial image 123. Persistent distended gallbladder with depend ent gallstones. Scar tissue anterior abdominal wall redemonstrated. Small amount of free fluid pelvic cul-de-sac noted. This is improved from prior. Mild wall thickening urinary bladder current study co uld reflect an acute cystitis, correlate clinically. Prominent Schmorl node superior L3 endplate. Facet arthropathy lower lumbar spine. Dextroconvex scoli otic curvature centered mid thoracic spine. IMPRESSION: Overall complete positive metabolic response with no residual abnormal hypermetabolic crystal nopathy above or below diaphragm and continued diminished size to lymph nodes without greater than 1 cm lymph nodes seen on current study. Deauville score 1. Complete response.
== END | disposition home or self-care (01) ==
LOC: RADPETMAIN 13:26
PROVIDERS: ATTEND Internal Medicine Hematology & Oncology
DX: C85.90 Non-Hodgkin lymphoma, unspecified, unspecified site (principal)
CPT/HCPCS: 78815; A9552

== ENCOUNTER 2019-03-14 08:39 | Inpatient (IN) | payer MEDICARE, OTHER ==
[~2019-03-14 08:39] MED LIST changes: -ALPRAZolam 0.25 MG TAB PO PRN; -ALPRAZolam 0.5 MG TAB PO PRN; -ASPIRIN 325 MG TAB PO STA; -ATORVASTATIN 80 MG TAB PO STA; -BENZOCAINE SPRAY 1 CAN TOPICAL PRN; -MIDAZOLAM 2 MG/2 ML VIAL IV ONE; -NITROGLYCERIN SL TABS 0.4 MG TAB SUBLINGUAL PRN; +ONDANSETRON 4 MG/2 ML VIAL IVP PRN; -SODIUM CHLORIDE 0.9% 1,000 ML in EMPTY BAG 1 BAG IV ONE; -fentaNYL (PF) 50 MCG/ML 5 ML AMP IVP ONE
[2019-03-14] MEDS: SODIUM CHLORIDE 0.9% 1,000 ML IV SCH ×2 (09:45→17:40)
[2019-03-14 10:08] LABS: Anisocytosis Moderate; Basophils # (A) 0.1 k/uL (0-0.2); Basophils % (A) 2 %; Eosinophils # (A) 0.2 k/uL (0-0.7); Eosinophils % (A) 3 %; HCT 29.7 % (34.0-46.0); HGB 9.1 gm/dL (11.4-16.0); Hypochromasia Slight; Lymphocytes # (A) 1.1 k/uL (1.0-4.8); Lymphocytes % (A) 20 %; MCH 30.6 pg (25.0-35.0); MCHC 30.8 g/dL (31.0-37.0); Macrocytosis Moderate; Mean Platelet Volume 7.1; Monocytes # (A) 0.5 k/uL (0-1.0); Monocytes % (A) 9 %; Neutrophils # (A) 3.2 k/uL (1.3-7.7); Neutrophils % (A) 62 %; Platelet Count 231 k/uL (150-450); RBC 2.99 m/uL (3.80-5.40); WBC 5.2 k/uL (3.8-10.6)
[2019-03-14 10:10] LABS: MCV 99.2 fL (80.0-100.0)
[2019-03-14 10:56] LABS: Albumin 4.4 g/dL (3.5-5.0); Calcium 9.5 mg/dL (8.4-10.2); Phosphorus 4.1 mg/dL (2.5-4.5); Potassium 4.2 mmol/L (3.5-5.1); Total Bilirubin 0.5 mg/dL (0.2-1.3); Total Protein 7.9 g/dL (6.3-8.2); Uric Acid 3.4 mg/dL (3.7-7.4)
[2019-03-14] MEDS ORDERED: LIDOCAINE-PRILOCAINE 2.5-2.5% CREAM 5 GM TUBE TOPICAL PRN (11:07)
[2019-03-14] MEDS ORDERED: oxyCODONE-APAP 10-325MG 1 EACH TAB PO PRN (11:07)
[2019-03-14] MEDS ORDERED: CYCLOBENZAPRINE 10 MG TAB PO PRN (11:07)
[2019-03-14] MEDS ORDERED: clonazePAM 0.5 MG TAB PO PRN (11:07)
[2019-03-14] MEDS ORDERED: LORATADINE 10 MG TAB PO PRN (11:07)
[2019-03-14] MEDS ORDERED: PSYLLIUM HUSK 100% 6 GM PACKET PO PRN (11:07)
[2019-03-14] MEDS ORDERED: MAGNESIUM OXIDE 400 MG TAB PO PRN (11:07)
--- NOTE | 2019-03-14 11:07 | P.HPIM ---
History of Present Illness H&P Date: 03/14/19 Chief Complaint: Admit for CIVI ICE for NHL Ms. Quiroz is a pleasant female pt of Dr. Gutiérrez admitted for cycle #3 of CEOP for NHL. She was initially diagnosed in 2006 at [facility], told Non- Hodgkin's lymphoma with lymph nodes above and below the diaphragm. She was seen by Dr. Gonzalez with observation was recommended. However she did not follow-up since 2007 and eventually move to the area, no oncology care since in between. She was asymptomatic so she continued on observation. 10/25 she had c/o new onset RLQ abdominal pain, progressive over 7-[address] AP 10/27/18 showing a mixed density mass in the right lower quadrant, with soft tissue density, felt to be related to phlegmon or abscess. There was some mild right- sided inguinal and retroperitoneal adenopathy that was unchanged. She underwent surgery on 10/28/18 with resection of the right ovary and right fallopian tube as well as pelvic lymph node biopsy. Path showed evidence of high-grade B cell non-Hodgkin lymphoma in the pelvic lymph node, benign ovarian fibroma and atrophic fallopian tube with associated lymphoid tissue with atypical lymphoproliferative process. Double hit/triple hit was ruled out as MYC rearrangement was negative. PET showed multiple areas of uptake including left axilla, mediastinum, left breast, multiple areas in the retroperitoneum, most prominently in the aortocaval region. She was found to be hepatitis C positive and is on antiviral treatment for the same since 2nd cycle of treatment. EF was 45% so, she was started on CEOP, 1st cycle 12/13/18 and is s/p 2 cycles. GCSF was added with C2. PET after C 2 showed improvement, but still persistent uptake in multiple areas, including retropectoral, retroperitoneal, and pelvis. She was switched to ICE and is s/p 2 cycles, admitted for cycle #3. Pt has no c/o on admit today, she is active, tolerating oral intake. Review of Systems 14 point ROS is negative except as stated in HPI Past Medical History Past Medical History: Atrial Fibrillation, Cancer, Chest Pain / Angina, Eye Disorder, Hyperlipidemia, Hypertension, Liver Disease, Musculoskeletal Disorder, Pneumonia, Renal Disease Additional Past Medical History / Comment(s): 2006 nonhodgkins lymphoma-no treatment needed, 10/2018 reoccurrence nonhodgkins lymphoma-received 2 rounds chemo/pet scan recently showed persistent abnormal uptake in chest/abdomin-pt recieving ICE chemo, abdominal pain/constipation, newly diagnosed hepatitis C-pt just started medication to treat, DDD, chronic low back pain/cervical pain (sees Dr. Cummins for pain management), migraines, decreased renal function with steroid/nsaid use. History of Any Multi-Drug Resistant Organisms: None Reported Past Surgical History: Heart Catheterization, Orthopedic Surgery Additional Past Surgical History / Comment(s): 10/28/18 Exploratory laparotomy with tubo-ovarian cancer/R salpingo-oophorectomy/removal pelvic lymph nodes, 12/03/18 Port a cath, 12/20/18 cardiac cath-normal/CHIQUIS, 2015 cardiac cath, v aginal polypectomy, R shoulder arthroscopy/rotator cuff repair x2, R knee arthroscopy, ORIF R ankle with plates/screws. Past Anesthesia/Blood Transfusion Reactions: No Reported Reaction Past Psychological History: Anxiety, Depression Smoking Status: Light tobacco smoker Past Alcohol Use History: Occasional Past Drug Use History: None Reported - Past Family History Mother Family Medical History: COPD, Coronary Artery Disease (CAD), Myocardial Infarction ([place]), Seizure Disorder Additional Family Medical History / Comment(s): Mother had a [place] at the age of 76yrs. She from fall/facial injury and aspirated blood. Father Family Medical History: Coronary Artery Disease (CAD), Seizure Disorder Additional Family Medical History / Comment(s): Father had a seizure while driving resulting in a MVA in which he . Medications and Allergies Home Medications Medication Instructions Recorded Confirmed Type Sertraline [Zoloft] 100 mg PO DAILY 06/05/14 03/14/19 History Ascorbic Acid [Vitamin C] 500 mg PO DAILY 06/07/14 03/14/19 History Metoprolol Tartrate [Lopressor] 25 mg PO BID 10/08/15 03/14/19 History Biotin 5 mg PO DAILY 10/25/18 03/14/19 History Simvastatin [Zocor] 40 mg PO HS 10/25/18 03/14/19 History clonazePAM [KlonoPIN] 0.5 mg PO BID PRN 10/25/18 03/14/19 History Calcium Carbonate/Vitamin D3 1 cap PO BID 12/01/18 03/14/19 History [Calcium 600-Vit D3 500 Softgel] Lisinopril [Zestril] 2.5 mg PO DAILY 12/01/18 03/14/19 History Spironolactone 25 mg PO DAILY 12/01/18 03/14/19 History Fluticasone Nasal [place] [Flonase 2 sprays EA NOSTRIL HS 12/15/18 03/14/19 History Nasal [place]] Ondansetron HCl [Zofran] 4 mg PO Q4H PRN 12/15/18 03/14/19 History Psyllium Husk [Metamucil] 0.4 gm PO DAILY PRN 12/15/18 03/14/19 History Amitriptyline HCl [Elavil] 25 mg PO HS 01/24/19 03/14/19 History Cetirizine HCl [Zyrtec] 10 mg PO DAILY PRN 01/24/19 03/14/19 History Cyclobenzaprine [Flexeril] 10 mg PO TID PRN 01/24/19 03/14/19 History Glecaprevir/Pibrentasvir [Mavyret 3 tab PO AC-LUNCH 01/24/19 03/14/19 History 100-40 mg Tablet] Lidocaine-Prilocaine Cream [Emla 1 applic TOPICAL DAILY PRN 01/24/19 03/14/19 History Cream 2.5%/2.5%] Magnesium Citrate 230mg 230 mg PO DAILY PRN 01/24/19 03/14/19 History Omeprazole 20 mg PO BID PRN 01/24/19 03/14/19 History Sertraline HCl [Zoloft] 50 mg PO DAILY 01/24/19 03/14/19 History Vitamin E (Dl,Tocopheryl Acet) 400 unit PO DAILY 01/24/19 03/14/19 History [Vitamin E] traZODone HCL 50 mg PO HS 01/24/19 03/14/19 History Vitamin C/Biotin [Hair, Skin and 1 tab PO DAILY 03/14/19 03/14/19 History Nails] oxyCODONE-APAP 10-325MG [Percocet 1 tab PO QID PRN 03/14/19 03/14/19 History 10-325 mg] Allergies Allergy/AdvReac Type Severity Reaction Status Date / Time hydrocodone AdvReac Severe Unknown Verified 03/14/19 09:56 NSAIDS (Non-Steroidal AdvReac shuts Verified 03/14/19 09:56 Anti-Inflamma kidneys down Physical Exam Vitals: Intake and Output 03/13/19 03/14/19 03/14/19 22:59 06:59 14:59 Other: Weight 61 kg - Constitutional General appearance: average body habitus, cooperative, no acute distress - EENT Eyes: anicteric sclerae, EOMI ENT: hearing grossly normal, normal oropharynx - Neck Neck: no lymphadenopathy - Respiratory Respiratory: bilateral: CTA - Cardiovascular Rhythm: regular Heart sounds: normal: S1, S2 Abnormal Heart Sounds: no systolic murmur, no diastolic murmur, no rub, no S3 Gallop, no S4 Gallop, no click, no other leg Peripheral Edema: bilateral: None - Gastrointestinal General gastrointestinal: no absent bowel sounds, no decreased bowel sounds, no distended, no hepatomegaly, no hyperactive bowel sounds, normal bowel sounds, no organomegaly, no rigid, no scaphoid, soft, no splenomegaly, no tenderness, no umbilical hernia, no ventral hernia - Integumentary Integumentary: normal - Neurologic Neurologic: CNII-XII intact - Musculoskeletal Musculoskeletal: strength equal bilaterally - Psychiatric Psychiatric: A&O x's 3, appropriate affect, intact judgment & insight Results CBC & Chem 7: 03/14/19 09:35 03/14/19 09:35 Thrombosis Risk Factor Assmnt - DVT/VTE Prophylaxis DVT/VTE Prophylaxis: Pharmacologic Prophylaxis ordered Assessment and Plan (1) NHL (non-Hodgkin's lymphoma) Narrative/Plan: Admit for CIVI cycle #3 of ICE, anticipate 3-4 days admit Labs daily Supportive meds Home meds reconciled Daily f/u Diet as tolerated Activity encouraged, ambulate frequently Encourage fluids GI prophylaxis DVT prophylaxis once labs resulted Home meds reconciled Current Visit: Yes Status: Chronic Priority: High Code(s): C85.90 - NON- HODGKIN LYMPHOMA, UNSPECIFIED, UNSPECIFIED SITE SNOMED Code(s): 786427217 (2) Hepatitis C Narrative/Plan: Cont home mayvret as prescribed Current Visit: No Status: Chronic Priority: Medium Code(s): B19.20 - UNSPECIFIED VIRAL HEPATITIS C WITHOUT HEPATIC COMA SNOMED Code(s): 18098030 Plan: Doctor attests: I performed a history and physical examination of this patient, developed impression and plan of care, discussed with dictator. I agree with dictators note, documented as a scribe.
[2019-03-14] MEDS: FAMOTIDINE 20 MG/2 ML VIAL IV SCH (12:37)
[2019-03-14] MEDS: DEXAMETHASONE SOD PHOSPHATE 10 MG/ML 1 ML VIAL IV SCH (12:37)
[2019-03-14] MEDS: ONDANSETRON 16 MG in SODIUM CHLORIDE 0.9% 50 ML IVPB SCH (12:37)
[2019-03-14] MEDS: Glecaprevir/Pibrentasvir [Mavyret 100-40 Mg Tablet] PO SCH (13:14)
[2019-03-14] MEDS: SALT AND SODA MOUTHWASH 1,000 ML PO SCH ×3 (13:14→20:17)
[2019-03-14] MEDS: ETOPOSIDE 170 MG in SODIUM CHLORIDE 0.9% 500 ML 500 ML IV SCH (13:22)
[2019-03-14] MEDS: CALCIUM CARB-VIT D 500MG-200UN 1 EACH TAB PO SCH (20:16)
[2019-03-14] MEDS: DOCUSATE 100 MG CAP PO SCH (20:16)
[2019-03-14] MEDS: AMITRIPTYLINE HCL 25 MG TAB PO SCH (20:16)
[2019-03-14] MEDS: traZODone HCL 50 MG TAB PO SCH (20:16)
[2019-03-14] MEDS: FLUTICASONE 50MCG/SPRAY NASAL 16GM EA NOSTRIL SCH (20:16)
[2019-03-14] MEDS: ATORVASTATIN 20 MG TAB PO SCH (20:16)
[2019-03-14] MEDS: METOPROLOL TARTRATE 25 MG TAB PO SCH (20:16)
--- NOTE | 2019-03-14 23:21 | P.CONS ---
History of Present Illness - Reason for Consult Consult date: 03/14/19 Medical management Requesting physician: Virgilio Gutiérrez - Chief Complaint Chemotherapy treatment - History of Present Illness Consultation: This is a very pleasant 63-year-old patient of Dr. Weller. Rather extensive medical history. Patient initially diagnosed as a lump in the right groin in 2016 had a biopsy done at [facility] and had a diagnosis of non-Hodgkin's lymphoma. Decision was made to follow with observation. She did not follow-up for the same. She had a possible breast lump ultrasound of the breast was negative. In October 2018 she had new abdominal pain and computed tomography scan showed a mass in the right lower quadrant. Along with adenopa thy. She underwent resection of the right ovary and right fallopian tube and pelvic lymph node biopsy was carried out. 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 PET scan that showed multiple areas of uptake including the left axilla. PET scan showed areas of multiple uptake including left axilla, mediastinum, left breast, multiple areas in the retro-peritoneal.. She was hepatitis C positive. 2-D echo showed EF of 45%. She also had a cardiac catheterization in October 2018 came back to be negative. Patient was started with chemotherapy. Admitted with-cycle 3 of ICE chemotherapy for non-Hodgkin's lymphoma. Patient appetite has been fair. No diarrhea. No urinary symptoms. No skin changes. Loss of scalp hair. Does feel a bit tired. Today-finished her chemotherapy. Stable. Tolerated diet. No new issues. keen to go home Review of systems: GEN.: Tired EYES: None HEENT: Loss of her NECK: None RESPIRATORY: None CARDIOVASCULAR: None GASTROINTESTINAL: None GENITOURINARY: None MUSCULOSKELETAL: None LYMPHATICS: None HEMATOLOGICAL: None PSYCHIATRY: None NEUROLOGICAL: None Past medical history to include: High-grade B-cell non-Hodgkin's lymphoma, hepatitis C, cardiomyopathy EF 45% atrial fibrillation, hypertension, hyperlipidemia chronic low back pain. She follows with Dr. 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 Alcohol occasionally Physical examination: VITAL SIGNS: 98.1, 95, 16, 125/67, 100% room air GENERAL: BMI 22.4, sitting up in bed awake EYES: Pupils equal. Conjunctiva pale. HEENT: External appearance of nose and ears normal, oral cavity normal. NECK: JVD not raised; masses not palpable. HEART: First and second heart sounds are normal; no edema. LUNGS: Respiratory rate normal; decreased breath sounds. ABDOMEN: Soft, non- tenderness, liver spleen not palpable, no masses palpable. PSYCH: Alert and oriented x3; mood and affect normal NEUROLOGICAL: Cranial nerves grossly intact, power and sensation grossly intact INVESTIGATIONS, reviewed in the clinical context: White count 5.2 hemoglobin 9.1 potassium 4.2 creatinine 0.91 Assessment: -Non-Hodgkin's lymphoma for -third cycle of ICE regimen chemotherapy -Hepatitis C -Cardiomyopathy EF 35-40% cause unknown -Essential hypertension -Hyperlipidemia -Normocytic anemia likely from chemotherapy -Chronic nicotine dependence patient cigarette smoker Plan: Chemotherapy is would be started this afternoon. Has progressively followed closely. Home medications are to continue. Care was discussed with the patient. Questions were answered. Thank you Dr. Gutiérrez Past Medical History Past Medical History: Atrial Fibrillation, Cancer, Chest Pain / Angina, Eye Disorder, Hyperlipidemia, Hypertension, Liver Disease, Musculoskeletal Disorder, Pneumonia, Renal Disease Additional Past Medical History / Comment(s): 2006 nonhodgkins lymphoma-no treatment needed, 10/2018 reoccurrence nonhodgkins lymphoma-received 2 rounds chemo/pet scan recently showed persistent abnormal uptake in chest/abdomin-pt recieving ICE chemo, abdominal pain/constipation, newly diagnosed hepatitis C-pt just started medication to treat, DDD, chronic low back pain/cervical pain (sees Dr. Cummins for pain management), migraines, decreased renal function with steroid/nsaid use. History of Any Multi-Drug Resistant Organisms: None Reported Past Surgical History: Heart Catheterization, Orthopedic Surgery Additional Past Surgical History / Comment(s): 10/28/18 Exploratory laparotomy with tubo-ovarian cancer/R salpingo-oophorectomy/removal pelvic lymph nodes, 12/03/18 Port a cath, 12/20/18 cardiac cath-normal/CHIQUIS, 2016 cardiac cath, vaginal polypectomy, R shoulder arthroscopy/rotator cuff repair x2, R knee arthroscopy, ORIF R ankle with plates/screws. Past Anesthesia/Blood Transfusion Reactions: No Reported Reaction Past Psychological History: Anxiety, Depression Smoking Status: Light tobacco smoker Past Alcohol Use History: Occasional Past Drug Use History: None Reported - Past Family History Mother Family Medical History: COPD, Coronary Artery Disease (CAD), Myocardial Infarction ([place]), Seizure Disorder Additional Family Medical History / Comment(s): Mother had a [place] at the age of 76yrs. She from fall/facial injury and aspirated blood. Father Family Medical History: Coronary Artery Disease (CAD), Seizure Disorder Additional Family Medical History / Comment(s): Father had a seizure while driving resulting in a MVA in which he . Medications and Allergies Home Medications Medication Instructions Recorded Confirmed Type Sertraline [Zoloft] 100 mg PO DAILY 06/05/14 03/14/19 History Ascorbic Acid [Vitamin C] 500 mg PO DAILY 06/07/14 03/14/19 History Metoprolol Tartrate [Lopressor] 25 mg PO BID 10/08/15 03/14/19 History Biotin 5 mg PO DAILY 10/25/18 03/14/19 History Simvastatin [Zocor] 40 mg PO HS 10/25/18 03/14/19 History clonazePAM [KlonoPIN] 0.5 mg PO BID PRN 10/25/18 03/14/19 History Calcium Carbonate/Vitamin D3 1 cap PO BID 12/01/18 03/14/19 History [Calcium 600-Vit D3 500 Softgel] Lisinopril [Zestril] 2.5 mg PO DAILY 12/01/18 03/14/19 History Spironolactone 25 mg PO DAILY 12/01/18 03/14/19 History Fluticasone Nasal [place] [Flonase 2 sprays EA NOSTRIL HS 12/15/18 03/14/19 History Nasal [place]] Ondansetron HCl [Zofran] 4 mg PO Q4H PRN 12/15/18 03/14/19 History Psyllium Husk [Metamucil] 0.4 gm PO DAILY PRN 12/15/18 03/14/19 History Amitriptyline HCl [Elavil] 25 mg PO HS 01/24/19 03/14/19 History Cetirizine HCl [Zyrtec] 10 mg PO DAILY PRN 01/24/19 03/14/19 History Cyclobenzaprine [Flexeril] 10 mg PO TID PRN 01/24/19 03/14/19 History Glecaprevir/Pibrentasvir [Mavyret 3 tab PO AC-LUNCH 01/24/19 03/14/19 History 100-40 mg Tablet] Lidocaine-Prilocaine Cream [Emla 1 applic TOPICAL DAILY PRN 01/24/19 03/14/19 History Cream 2.5%/2.5%] Magnesium Citrate 230mg 230 mg PO DAILY PRN 01/24/19 03/14/19 History Omeprazole 20 mg PO BID PRN 01/24/19 03/14/19 History Sertraline HCl [Zoloft] 50 mg PO DAILY 01/24/19 03/14/19 History Vitamin E (Dl,Tocopheryl Acet) 400 unit PO DAILY 01/24/19 03/14/19 History [Vitamin E] traZODone HCL 50 mg PO HS 01/24/19 03/14/19 History Vitamin C/Biotin [Hair, Skin and 1 tab PO DAILY 03/14/19 03/14/19 History Nails] oxyCODONE-APAP 10-325MG [Percocet 1 tab PO QID PRN 03/14/19 03/14/19 History 10-325 mg] Allergies Allergy/AdvReac Type Severity Reaction Status Date / Time hydrocodone AdvReac Severe Unknown Verified 03/14/19 09:56 NSAIDS (Non-Steroidal AdvReac shuts Verified 03/14/19 09:56 Anti-Inflamma kidneys down Physical Exam Vitals: Vital Signs Temp Pulse Resp BP BP Pulse Ox 03/14/19 20:00 97.9 F 73 16 140/83 99 03/14/19 16:00 98.0 F 62 16 134/74 98 03/14/19 12:00 98.1 F 95 16 125/67 100 Intake and Output 03/14/19 03/14/19 03/15/19 14:59 22:59 06:59 Intake Total 1898 375 Balance 1898 375 Intake: Intake, IV Titration 1058 375 Amount Etoposide 170 mg In 508 Sodium Chloride 0.9% 500 ml 500 ml @ 508.5 mls/hr IV DAILY@1600 [facility] Rx#: [id number] Ondansetron 16 mg In 50 Sodium Chloride 0.9% 50 ml @ 232 mls/hr IVPB DAILY@1500 [facility] Rx#: [id number] Sodium Chloride 0.9% 1, 500 375 000 ml @ 125 mls/hr IV . Q8H [facility] Rx#:[id number] Oral 840 Other: # Voids 4 Weight 61 kg Results CBC & Chem 7: 03/14/19 09:35 03/14/19 09:35 Labs: Abnormal Lab Results - Last 24 Hours (Table) 03/14/19 03/14/19 Range/Units 09:35 09:35 RBC 2.99 L (3.80-5.40) m/uL Hgb 9.1 L (11.4-16.0) gm/dL Hct 29.7 L (34.0-46.0) % MCHC 30.8 L (31.0-37.0) g/dL RDW 22.0 H (11.5-15.5) % Glucose 131 H (74-99) mg/dL Uric Acid 3.4 L (3.7-7.4) mg/dL
[2019-03-15] MEDS: SODIUM CHLORIDE 0.9% 1,000 ML IV SCH ×3 (00:32→18:07)
[2019-03-15] MEDS: SALT AND SODA MOUTHWASH 1,000 ML PO SCH ×6 (00:33→20:49)
[2019-03-15] MEDS: METOPROLOL TARTRATE 25 MG TAB PO SCH ×2 (08:13→20:49)
[2019-03-15] MEDS: DOCUSATE 100 MG CAP PO SCH ×2 (08:13→20:49)
[2019-03-15] MEDS: LISINOPRIL 2.5 MG TAB PO SCH (08:13)
[2019-03-15] MEDS: SERTRALINE 50 MG TAB PO SCH (08:13)
[2019-03-15] MEDS: SPIRONOLACTONE 25 MG TAB PO SCH (08:13)
[2019-03-15] MEDS: SERTRALINE 100 MG TAB PO SCH (08:14)
[2019-03-15] MEDS: ASCORBIC ACID 500 MG TAB PO SCH (08:14)
[2019-03-15] MEDS: CALCIUM CARB-VIT D 500MG-200UN 1 EACH TAB PO SCH ×2 (08:14→20:48)
[2019-03-15] MEDS: VITAMIN E (DL,TOCOPHERYL ACET) 400 UNIT CAP PO SCH (08:15)
[2019-03-15] MEDS ORDERED: NON FORMULARY DRUG (Vitamin C/Biotin [Hair, Skin And Nails] 1 TAB) PO SCH (09:00)
[2019-03-15] MEDS ORDERED: NON FORMULARY DRUG (Biotin [Biotin] 5 MG) PO SCH (09:00)
[2019-03-15 09:11] LABS: Anisocytosis Moderate; Basophils # (A) 0.1 k/uL (0-0.2); Basophils % (A) 2 %; Eosinophils # (A) 0.1 k/uL (0-0.7); Eosinophils % (A) 2 %; HCT 29.5 % (34.0-46.0); HGB 9.3 gm/dL (11.4-16.0); Hypochromasia Marked; Lymphocytes # (A) 1.3 k/uL (1.0-4.8); Lymphocytes % (A) 26 %; MCH 32.4 pg (25.0-35.0); MCHC 31.4 g/dL (31.0-37.0); MCV 103.1 fL (80.0-100.0); Macrocytosis Marked; Mean Platelet Volume 7.2; Monocytes # (A) 0.5 k/uL (0-1.0); Monocytes % (A) 9 %; Neutrophils % (A) 58 %; Platelet Count 229 k/uL (150-450); RBC 2.86 m/uL (3.80-5.40); RDW 21.5 % (11.5-15.5); WBC 5.1 k/uL (3.8-10.6)
[2019-03-15 09:36] LABS: Albumin 4.3 g/dL (3.5-5.0); Calcium 9.4 mg/dL (8.4-10.2); Phosphorus 4.1 mg/dL (2.5-4.5); Potassium 4.5 mmol/L (3.5-5.1); Total Bilirubin 0.7 mg/dL (0.2-1.3); Total Protein 7.5 g/dL (6.3-8.2)
[2019-03-15] MEDS: ONDANSETRON 16 MG in SODIUM CHLORIDE 0.9% 50 ML IVPB SCH (12:07)
[2019-03-15] MEDS: FAMOTIDINE 20 MG/2 ML VIAL IV SCH (12:07)
[2019-03-15] MEDS: Glecaprevir/Pibrentasvir [Mavyret 100-40 Mg Tablet] PO SCH (12:07)
[2019-03-15] MEDS: DEXAMETHASONE SOD PHOSPHATE 10 MG/ML 1 ML VIAL IV SCH (12:07)
[2019-03-15] MEDS: ETOPOSIDE 170 MG in SODIUM CHLORIDE 0.9% 500 ML 500 ML IV SCH (14:08)
[2019-03-15] MEDS ORDERED: CARBOPLATIN IV ONE (16:00)
[2019-03-15] MEDS ORDERED: SODIUM CHLORIDE 0.9% IV ONE ×3 (16:00→17:00)
[2019-03-15] MEDS ORDERED: IFOSFAMIDE IV ONE (17:00)
[2019-03-15] MEDS ORDERED: MESNA IV ONE (17:00)
--- NOTE | 2019-03-15 17:43 | P.PN ---
Subjective Progress Note Date: 03/15/19 Principal diagnosis: DLBCL, CIVI chemo In f/u today pt has no c/o, eating and drinking, no fever, SOB, oral irritation, N,V, diarrhea, constipation or pain Objective - Vital Signs Vital signs: Vital Signs Temp 98.9 F 03/15/19 16:00 Pulse 74 03/15/19 16:00 Resp 16 03/15/19 16:00 BP 133/63 03/15/19 16:00 Pulse Ox 94 L 03/15/19 16:00 Intake & Output 03/14/19 03/15/19 03/15/19 18:59 06:59 18:59 Intake Total 1898 1375 1750 Balance 1898 1375 1750 Weight 61 kg 62 kg Intake: Intake, IV Titration 1058 1375 1750 Amount CARBOplatin 390 mg In 250 Sodium Chloride 0.9% 250 ml @ 578 mls/hr IV ONCE ONE Rx#:[id number] Etoposide 170 mg In 508 500 Sodium Chloride 0.9% 500 ml 500 ml @ 508.5 mls/hr IV DAILY@1600 [facility] Rx#: [id number] Ondansetron 16 mg In 50 Sodium Chloride 0.9% 50 ml @ 232 mls/hr IVPB DAILY@1500 [facility] Rx#: [id number] Sodium Chloride 0.9% 1, 500 1375 1000 000 ml @ 125 mls/hr IV . Q8H [facility] Rx#:[id number] Oral 840 Other: Voiding Method Toilet # Voids 4 4 - Constitutional General appearance: Present: average body habitus, cooperative, no acute distress - EENT Eyes: Present: anicteric sclerae, edentulous, EOMI ENT: Present: hearing grossly normal, normal oropharynx - Respiratory Respiratory: bilateral: CTA - Cardiovascular Rhythm: regular Heart sounds: normal: S1, S2 Abnormal Heart Sounds: Absent: systolic murmur, diastolic murmur, rub, S3 Gallop, S4 Gallop, click, other - Peripheral edema leg Peripheral Edema: bilateral: None - Gastrointestinal General gastrointestinal: Present: normal bowel sounds, soft - Integumentary Integumentary: Present: normal - Neurologic Neurologic: Present: CNII-XII intact - Musculoskeletal Musculoskeletal: Present: strength equal bilaterally - Psychiatric Psychiatric: Present: A&O x's 3, appropriate affect, intact judgment & insight - Labs CBC & Chem 7: 03/15/19 08:45 03/15/19 08:45 Labs: Abnormal Lab Results - Last 24 Hours (Table) 03/15/19 03/15/19 Range/Units 08:45 08:45 RBC 2.86 L (3.80-5.40) m/uL Hgb 9.3 L (11.4-16.0) gm/dL Hct 29.5 L (34.0-46.0) % MCV 103.1 H (80.0-100.0) fL RDW 21.5 H (11.5-15.5) % Macrocytosis Marked A Chloride 110 H (98-107) mmol/L Assessment and Plan (1) NHL (non-Hodgkin's lymphoma) Narrative/Plan: Admit for CIVI cycle #3 of ICE, anticipate 3-4 days admit Labs daily Supportive meds Daily f/u Diet as tolerated Activity encouraged, ambulate frequently Encourage fluids GI prophylaxis DVT prophylaxis Current Visit: Yes Status: Chronic Priority: High Code(s): C85.90 - NON- HODGKIN LYMPHOMA, UNSPECIFIED, UNSPECIFIED SITE SNOMED Code(s): 554217649 (2) Hepatitis C Narrative/Plan: Cont home mayvret as prescribed Current Visit: No Status: Chronic Priority: Medium Code(s): B19.20 - UNSPECIFIED VIRAL HEPATITIS C WITHOUT HEPATIC COMA SNOMED Code(s): 37411063 Plan: for medical management Doctor attests: I performed a history and physical examination of this patient, developed impression and plan of care, discussed with dictator. I agree with dictators note, documented as a scribe.
--- NOTE | 2019-03-15 20:31 | P.PN ---
Progress Note - Text Progress Note Date: 03/15/19 - Chief Complaint Chemotherapy treatment - History of Present Illness Consultation: This is a very pleasant 63-year-old patient of Dr. Weller. Rather extensive medical history. Patient initially diagnosed as a lump in the right groin in 2016 had a biopsy done at [facility] and had a diagnosis of non- Hodgkin's lymphoma. Decision was made to follow with observation. She did not follow-up for the same. She had a possible breast lump ultrasound of the breast was negative. In October 2018 she had new abdominal pain and computed tomography scan showed a mass in the right lower quadrant. Along with adenopathy. She underwent resection of the right ovary and right fallopian tube and pelvic lymph node biopsy was carried out. 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 PET scan that showed multiple areas of uptake including the left axilla. PET scan showed areas of multiple uptake including left axilla, mediastinum, left breast, multiple areas in the retro-peritoneal.. She was hepatitis C positive. 2-D echo showed EF of 45%. She also had a cardiac catheterization in October 2018 came back to be negative. Patient was started with chemotherapy. Admitted with-cycle 3 of ICE chemotherapy for non-Hodgkin's lymphoma. Patient appetite has been fair. No diarrhea. No urinary symptoms. No skin changes. Loss of scalp hair. Does feel a bit tired. Today-. Day 1 of chemotherapy. No new issues. Did tolerate her diet. Up to the bathroom. No fever no chills. Review of systems: Was done for constitutional, cardiovascular, GI, pulmonary. relevant finding as above Active Medications Amitriptyline HCl (Elavil) 25 mg PO [facility] Last Admin: 03/14/19 20:16 Dose: 25 mg Documented by: Ascorbic Acid (Vitamin C) 500 mg PO DAILY [facility] Last Admin: 03/15/19 08:14 Dose: 500 mg Documented by: Atorvastatin Calcium (Lipitor) 20 mg PO [facility] Last Admin: 03/14/19 20:16 Dose: 20 mg Documented by: Calcium Carbonate (Oscal 500+D) 1 each PO BID [facility] Last Admin: 03/15/19 08:14 Dose: 1 each Documented by: Clonazepam (Klonopin) 0.5 mg PO BID PRN PRN Reason: Anxiety Cyclobenzaprine HCl (Flexeril) 10 mg PO TID PRN PRN Reason: Muscle Spasm Dexamethasone Sodium Phosphate (Decadron) 10 mg IV DAILY@1500 [facility] Stop: 03/16/19 15:01 Last Admin: 03/15/19 12:07 Dose: 10 mg Documented by: Docusate Sodium (Colace) 100 mg PO BID [facility] Last Admin: 03/15/19 08:13 Dose: 100 mg Documented by: Famotidine (Pepcid) 20 mg IV DAILY@1500 [facility] Stop: 03/16/19 15:01 Last Admin: 03/15/19 12:07 Dose: 20 mg Documented by: Fluticasone Propionate (Flonase Nasal [place]) 2 spray EA NOSTRIL [facility] Last Admin: 03/14/19 20:16 Dose: 2 spray Documented by: Sodium Chloride (Saline 0.9%) 1,000 mls @ 125 mls/hr IV .Q8H [facility] Last Admin: 03/15/19 18:07 Dose: 125 mls/hr Documented by: Ondansetron HCl 16 mg/ Sodium (Chloride) 58 mls @ 232 mls/hr IVPB DAILY@1500 [facility] Stop: 03/16/19 15:14 Last Admin: 03/15/19 12:07 Dose: 232 mls/hr Documented by: Etoposide 170 mg/ Sodium (Chloride) 508.5 mls @ 508.5 mls/hr IV DAILY@1600 [facility] Stop: 03/16/19 16:59 Last Admin: 03/15/19 14:08 Dose: 508.5 mls/hr Documented by: Ifosfamide 8,500 mg/ Sodium (Chloride) 1,170 mls @ 48.75 mls/hr IV ONCE ONE Stop: 03/16/19 16:59 Last Admin: 03/15/19 15:43 Dose: 48.75 mls/hr Documented by: [place] 8,500 mg/ Sodium (Chloride) 425 mls @ 17.708 mls/hr IV ONCE ONE Stop: 03/16/19 16:59 Last Admin: 03/15/19 15:43 Dose: 17.708 mls/hr Documented by: Lidocaine/Prilocaine (Emla Cream 2.5%/2.5%) 1 applic TOPICAL DAILY PRN PRN Reason: port access Lisinopril (Zestril) 2.5 mg PO DAILY [facility] Last Admin: 03/15/19 08:13 Dose: 2.5 mg Documented by: Loratadine (Claritin) 10 mg PO DAILY PRN PRN Reason: Allergy Symptoms Magnesium Oxide (Mag-Ox) 400 mg PO DAILY PRN PRN Reason: Muscle Pain Metoprolol Tartrate (Lopressor) 25 mg PO BID [facility] Last Admin: 03/15/19 08:13 Dose: 25 mg Documented by: Glecaprevir/Pibrentasvir [ Mavyret 100-40 Mg Tablet] 3 tab PO AC-LUNCH [facility] Last Admin: 03/15/19 12:07 Dose: 3 tab Documented by: Ondansetron HCl (Zofran) 4 mg IVP Q6H PRN PRN Reason: Nausea Oxycodone/Acetaminophen (Percocet 10-325) 1 each PO QID PRN PRN Reason: Pain Psyllium Hydrophilic Mucilloid (Metamucil) 6 gm PO DAILY PRN PRN Reason: Constipation Sertraline HCl (Zoloft) 100 mg PO DAILY [facility] Last Admin: 03/15/19 08:14 Dose: 100 mg Documented by: Sertraline HCl (Zoloft) 50 mg PO DAILY [facility] Last Admin: 03/15/19 08:13 Dose: 50 mg Documented by: Sodium Bicarbonate () 5 ml PO Q4H [facility] Last Admin: 03/15/19 16:02 Dose: 5 ml Documented by: Spironolactone (Aldactone) 25 mg PO DAILY [facility] Last Admin: 03/15/19 08:13 Dose: 25 mg Documented by: Trazodone HCl (Desyrel) 50 mg PO HS [facility] Last Admin: 03/14/19 20:16 Dose: 50 mg Documented by: Vitamin E (Vitamin E) 400 unit PO DAILY [facility] Last Admin: 03/15/19 08:15 Dose: 400 unit Documented by: Physical examination: VITAL SIGNS: 97.3, 74, 16, 125/66, 100% on room air GENERAL: BMI 22.4, sitting up in bed awake EYES: Pupils equal. Conjunctiva pale. HEENT: External appearance of nose and ears normal, oral cavity normal. NECK: JVD not raised; masses not palpable. HEART: First and second heart sounds are normal; no edema. LUNGS: Respiratory rate normal; decreased breath sounds. ABDOMEN: Soft, non- tenderness, liver spleen not palpable, no masses palpable. PSYCH: Alert and oriented x3; mood and affect normal NEUROLOGICAL: Cranial nerves grossly intact, power and sensation grossly intact INVESTIGATIONS, reviewed in the clinical context: White count 5.1 hemoglobin 9.3 potassium 4.5 creatinine 0.9 to Previous testing White count 5.2 hemoglobin 9.1 potassium 4.2 creatinine 0.91 Assessment: -Non-Hodgkin's lymphoma for -third cycle of ICE regimen chemotherapy -Hepatitis C -Cardiomyopathy EF 35-40% cause unknown -Essential hypertension -Hyperlipidemia -Normocytic anemia likely from chemotherapy -Chronic nicotine dependence patient cigarette smoker Plan: Continue current medication treatment plan. Care was discussed with the patient. Thank you Dr. Gutiérrez
[2019-03-15] MEDS: ATORVASTATIN 20 MG TAB PO SCH (20:48)
[2019-03-15] MEDS: traZODone HCL 50 MG TAB PO SCH (20:49)
[2019-03-15] MEDS: AMITRIPTYLINE HCL 25 MG TAB PO SCH (20:51)
[2019-03-15] MEDS: FLUTICASONE 50MCG/SPRAY NASAL 16GM EA NOSTRIL SCH (20:51)
[2019-03-16] MEDS: SALT AND SODA MOUTHWASH 1,000 ML PO SCH ×7 (00:09→23:49)
[2019-03-16 00:36] VITALS: RESP 16
[2019-03-16] MEDS: SODIUM CHLORIDE 0.9% 1,000 ML IV SCH ×3 (01:12→17:09)
[2019-03-16 07:46] LABS: ALT 9 U/L (4-34); AST 21 U/L (14-36); African American GFR (CKD) >90 (>60 ml/min/1.73 sqM); Albumin 3.7 g/dL (3.5-5.0); Alkaline Phosphatase 53 U/L (38-126); Anion Gap 6 mmol/L; Blood Urea Nitrogen 12 mg/dL (7-17); Calcium 9.2 mg/dL (8.4-10.2); Carbon Dioxide 24 mmol/L (22-30); Chloride 113 mmol/L (98-107); Glucose 76 mg/dL (74-99); Non-African American GFR(CKD) 78 (>60 ml/min/1.73 sqM); Phosphorus 3.2 mg/dL (2.5-4.5); Potassium 4.3 mmol/L (3.5-5.1); Sodium 143 mmol/L (137-145); Total Bilirubin 0.6 mg/dL (0.2-1.3); Total Protein 6.7 g/dL (6.3-8.2); Uric Acid 3.3 mg/dL (3.7-7.4)
[2019-03-16 08:09] LABS: Anisocytosis Moderate; Basophils % (A) 1 %; Eosinophils # (A) 0.1 k/uL (0-0.7); Eosinophils % (A) 2 %; HCT 25.3 % (34.0-46.0); Hypochromasia Moderate; Lymphocytes # (A) 0.9 k/uL (1.0-4.8); Lymphocytes % (A) 26 %; MCH 32.4 pg (25.0-35.0); MCHC 31.7 g/dL (31.0-37.0); MCV 102.1 fL (80.0-100.0); Macrocytosis Marked; Mean Platelet Volume 7.2; Monocytes # (A) 0.3 k/uL (0-1.0); Monocytes % (A) 8 %; Neutrophils # (A) 2.3 k/uL (1.3-7.7); Neutrophils % (A) 62 %; Platelet Count 153 k/uL (150-450); RBC 2.47 m/uL (3.80-5.40); RDW 20.9 % (11.5-15.5); WBC 3.7 k/uL (3.8-10.6)
--- NOTE | 2019-03-16 08:49 | P.PN ---
Subjective Progress Note Date: 03/16/19 The patient continues treatment without any major new issues. She does complain of some mild fatigue. Appetite is maintained. No nausea/vomiting/fever or chills. Objective - Vital Signs Vital signs: Vital Signs Temp 98.4 F 03/16/19 08:00 Pulse 79 03/16/19 08:00 Resp 16 03/16/19 08:00 BP 109/55 03/16/19 08:00 Pulse Ox 100 03/16/19 08:00 Intake & Output 03/15/19 03/16/19 03/16/19 18:59 06:59 18:59 Intake Total 1750 1830 Balance 1750 1830 Weight 68 kg Intake: Intake, IV Titration 1750 1000 Amount CARBOplatin 390 mg In 250 Sodium Chloride 0.9% 250 ml @ 578 mls/hr IV ONCE ONE Rx#:[id number] Etoposide 170 mg In 500 Sodium Chloride 0.9% 500 ml 500 ml @ 508.5 mls/hr IV DAILY@1600 [facility] Rx#: [id number] Sodium Chloride 0.9% 1, 1000 1000 000 ml @ 125 mls/hr IV . Q8H [facility] Rx#:[id number] Oral 830 Other: Voiding Method Toilet # Voids 4 2 - Constitutional General appearance: Present: no acute distress - EENT Eyes: Present: EOMI ENT: Present: hearing grossly normal, normal oropharynx - Respiratory Respiratory: bilateral: CTA - Cardiovascular Rhythm: regular Heart sounds: normal: S1, S2 - Gastrointestinal General gastrointestinal: Present: normal bowel sounds, soft - Integumentary Integumentary: Present: normal - Neurologic Neurologic: Present: CNII-XII intact - Musculoskeletal Musculoskeletal: Present: generalized weakness, strength equal bilaterally - Labs CBC & Chem 7: 03/16/19 07:01 03/16/19 07:01 Labs: Abnormal Lab Results - Last 24 Hours (Table) 03/15/19 03/15/19 03/16/19 Range/Units 08:45 08:45 07:01 WBC 3.7 L (3.8-10.6) k/uL RBC 2.86 L 2.47 L (3.80-5.40) m/uL Hgb 9.3 L 8.0 L (11.4-16.0) gm/dL Hct 29.5 L 25.3 L (34.0-46.0) % MCV 103.1 H 102.1 H (80.0-100.0) fL RDW 21.5 H 20.9 H (11.5-15.5) % Macrocytosis Marked A Marked A Chloride 110 H (98-107) mmol/L Uric Acid (3.7-7.4) mg/dL 03/16/19 Range/Units 07:01 WBC (3.8-10.6) k/uL RBC (3.80-5.40) m/uL Hgb (11.4-16.0) gm/dL Hct (34.0-46.0) % MCV (80.0-100.0) fL RDW (11.5-15.5) % Macrocytosis Chloride 113 H (98-107) mmol/L Uric Acid 3.3 L (3.7-7.4) mg/dL Assessment and Plan (1) NHL (non-Hodgkin's lymphoma) Narrative/Plan: The patient is admitted for high dose infusional chemotherapy with the ICE regimen. She is tolerating treatment well so far. She is on day #3 of her reg imen. Continue treatment per protocol. Continue to monitor with labs, and physical exam Current Visit: Yes Status: Chronic Priority: High Code(s): C85.90 - NON- HODGKIN LYMPHOMA, UNSPECIFIED, UNSPECIFIED SITE SNOMED Code(s): 581869136 (2) Hepatitis C Narrative/Plan: The patient is currently on antiviral therapy. Hepatitis C RNA has been ordered as an outpatient and is pending. If satisfactory Rituxan will be added to her regimen Current Visit: No Status: Chronic Priority: Medium Code(s): B19.20 - UNSPECIFIED VIRAL HEPATITIS C WITHOUT HEPATIC COMA SNOMED Code(s): 26702659 (3) Bicytopenia Narrative/Plan: Due to antineoplastic chemotherapy. Counts are in a safe range and do not require acute intervention. Continue to monitor with supportive treatment if needed. She will receive Peg-G-CSF as an outpatient Current Visit: Yes Status: Acute Code(s): D75.89 - OTHER SPECIFIED DISEASES OF BLOOD AND BLOOD-FORMING ORGANS SNOMED Code(s): 31481716
[2019-03-16] MEDS: VITAMIN E (DL,TOCOPHERYL ACET) 400 UNIT CAP PO SCH (09:08)
[2019-03-16] MEDS: CALCIUM CARB-VIT D 500MG-200UN 1 EACH TAB PO SCH ×2 (09:08→20:54)
[2019-03-16] MEDS: LISINOPRIL 2.5 MG TAB PO SCH (09:08)
[2019-03-16] MEDS: ASCORBIC ACID 500 MG TAB PO SCH (09:08)
[2019-03-16] MEDS: SERTRALINE 50 MG TAB PO SCH (09:08)
[2019-03-16] MEDS: METOPROLOL TARTRATE 25 MG TAB PO SCH ×2 (09:08→20:55)
[2019-03-16] MEDS: SERTRALINE 100 MG TAB PO SCH (09:08)
[2019-03-16] MEDS: SPIRONOLACTONE 25 MG TAB PO SCH (09:08)
[2019-03-16] MEDS: DOCUSATE 100 MG CAP PO SCH ×2 (09:09→20:54)
[2019-03-16 11:53] LABS: Poikilocytosis (M) Present
[2019-03-16] MEDS: Glecaprevir/Pibrentasvir [Mavyret 100-40 Mg Tablet] PO SCH (12:39)
[2019-03-16] MEDS: FAMOTIDINE 20 MG/2 ML VIAL IV SCH (16:00)
[2019-03-16] MEDS: DEXAMETHASONE SOD PHOSPHATE 10 MG/ML 1 ML VIAL IV SCH (16:01)
[2019-03-16] MEDS: ONDANSETRON 16 MG in SODIUM CHLORIDE 0.9% 50 ML IVPB SCH (16:01)
[2019-03-16] MEDS: ETOPOSIDE 170 MG in SODIUM CHLORIDE 0.9% 500 ML 500 ML IV SCH (17:10)
[2019-03-16] MEDS: FLUTICASONE 50MCG/SPRAY NASAL 16GM EA NOSTRIL SCH (20:54)
[2019-03-16] MEDS: ATORVASTATIN 20 MG TAB PO SCH (20:54)
[2019-03-16] MEDS: AMITRIPTYLINE HCL 25 MG TAB PO SCH (20:54)
[2019-03-16] MEDS: traZODone HCL 50 MG TAB PO SCH (20:55)
[2019-03-17] MEDS: SODIUM CHLORIDE 0.9% 1,000 ML IV SCH ×2 (01:00→09:51)
--- NOTE | 2019-03-17 01:12 | P.PN ---
Progress Note - Text Progress Note Date: 03/16/19 - Chief Complaint Chemotherapy treatment Consultation: This is a very pleasant 63-year-old patient of Dr. Weller. Rather extensive medical history. Patient initially diagnosed as a lump in the right groin in 2016 had a biopsy done at [facility] and had a diagnosis of non- Hodgkin's lymphoma. Decision was made to follow with observation. She did not follow-up for the same. She had a possible breast lump ultrasound of the breast was negative. In October 2018 she had new abdominal pain and computed tomography scan showed a mass in the right lower quadrant. Along with adenopathy. She underwent resection of the right ovary and right fallopian tube and pelvic lymph node biopsy was carried out. 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 PET scan that showed multiple areas of uptake including the left axilla. PET scan showed areas of multiple uptake including left axilla, mediastinum, left breast, multiple areas in the retro-peritoneal.. She was hepatitis C positive. 2-D echo showed EF of 45%. She also had a cardiac catheterization in October 2018 came back to be negative. Patient was started with chemotherapy. Admitted with-cycle 3 of ICE chemotherapy for non-Hodgkin's lymphoma. Patient appetite has been fair. No diarrhea. No urinary symptoms. No skin changes. Loss of scalp hair. Does feel a bit tired. Today-. Date 2 of chemotherapy. No new issues. No nausea vomiting. Tolerated diet. No diarrhea. No skin changes. Review of systems: Was done for constitutional, cardiovascular, GI, pulmonary. relevant finding as above Active Medications Amitriptyline HCl (Elavil) 25 mg PO HS [facility] Last Admin: 03/16/19 20:54 Dose: 25 mg Documented by: Ascorbic Acid (Vitamin C) 500 mg PO DAILY [facility] Last Admin: 03/16/19 09:08 Dose: 500 mg Documented by: Atorvastatin Calcium (Lipitor) 20 mg PO HS [facility] Last Admin: 03/16/19 20:54 Dose: 20 mg Documented by: Calcium Carbonate (Oscal 500+D) 1 each PO BID [facility] Last Admin: 03/16/19 20:54 Dose: 1 each Documented by: Clonazepam (Klonopin) 0.5 mg PO BID PRN PRN Reason: Anxiety Last Admin: 03/15/19 20:47 Dose: 0.5 mg Documented by: Cyclobenzaprine HCl (Flexeril) 10 mg PO TID PRN PRN Reason: Muscle Spasm Docusate Sodium (Colace) 100 mg PO BID [facility] Last Admin: 03/16/19 20:54 Dose: 100 mg Documented by: Fluticasone Propionate (Flonase Nasal [place]) 2 spray EA NOSTRIL HS [facility] Last Admin: 03/16/19 20:54 Dose: 2 spray Documented by: Sodium Chloride (Saline 0.9%) 1,000 mls @ 125 mls/hr IV .Q8H [facility] Last Admin: 03/16/19 17:09 Dose: 125 mls/hr Documented by: Lidocaine/Prilocaine (Emla Cream 2.5%/2.5%) 1 applic TOPICAL DAILY PRN PRN Reason: port access Lisinopril (Zestril) 2.5 mg PO DAILY [facility] Last Admin: 03/16/19 09:08 Dose: 2.5 mg Documented by: Loratadine (Claritin) 10 mg PO DAILY PRN PRN Reason: Allergy Symptoms Magnesium Oxide (Mag-Ox) 400 mg PO DAILY PRN PRN Reason: Muscle Pain Metoprolol Tartrate (Lopressor) 25 mg PO BID [facility] Last Admin: 03/16/19 20:55 Dose: 25 mg Documented by: Glecaprevir/Pibrentasvir [ Mavyret 100-40 Mg Tablet] 3 tab PO AC-LUNCH [facility] Last Admin: 03/16/19 12:39 Dose: 3 tab Documented by: Ondansetron HCl (Zofran) 4 mg IVP Q6H PRN PRN Reason: Nausea Oxycodone/Acetaminophen (Percocet 10-325) 1 each PO QID PRN PRN Reason: Pain Last Admin: 03/15/19 20:49 Dose: 1 each Documented by: Psyllium Hydrophilic Mucilloid (Metamucil) 6 gm PO DAILY PRN PRN Reason: Constipation Sertraline HCl (Zoloft) 100 mg PO DAILY [facility] Last Admin: 03/16/19 09:08 Dose: 100 mg Documented by: Sertraline HCl (Zoloft) 50 mg PO DAILY [facility] Last Admin: 03/16/19 09:08 Dose: 50 mg Documented by: Sodium Bicarbonate () 5 ml PO Q4H [facility] Last Admin: 03/16/19 23:49 Dose: Not Given Documented by: Spironolactone (Aldactone) 25 mg PO DAILY [facility] Last Admin: 03/16/19 09:08 Dose: 25 mg Documented by: Trazodone HCl (Desyrel) 50 mg PO HS [facility] Last Admin: 03/16/19 20:55 Dose: 50 mg Documented by: Vitamin E (Vitamin E) 400 unit PO DAILY [facility] Last Admin: 03/16/19 09:08 Dose: 400 unit Documented by: Physical examination: VITAL SIGNS: 98.4, 79, 16, 109/55, 100% room air GENERAL: Laying in bed, comfortable EYES: Pupils equal. Conjunctiva pale. HEENT: External appearance of nose and ears normal, oral cavity normal. NECK: JVD not raised; masses not palpable. HEART: First and second heart sounds are normal; no edema. LUNGS: Respiratory rate normal; decreased breath sounds. ABDOMEN: Soft, non- tenderness, liver spleen not palpable, no masses palpable. PSYCH: Alert and oriented x3; mood and affect normal NEUROLOGICAL: Cranial nerves grossly intact, power and sensation grossly intact INVESTIGATIONS, reviewed in the clinical context: White count 3.7 hemoglobin 8 platelets 153 potassium 4.3 creatinine 0.8 Previous testing White count 5.2 hemoglobin 9.1 potassium 4.2 creatinine 0.91 Assessment: -Non-Hodgkin's lymphoma for -third cycle of ICE regimen chemotherapy -Bicytopenia from chemotherapy -Hepatitis C -Cardiomyopathy EF 35-40% cause unknown -Essential hypertension -Hyperlipidemia -Normocytic anemia likely from chemotherapy -Chronic nicotine dependence patient cigarette smoker Plan: Continue current medication treatment plan. Care was discussed with the patient. Thank you Dr. Gutiérrez
[2019-03-17] MEDS: SALT AND SODA MOUTHWASH 1,000 ML PO SCH ×3 (04:23→12:42)
[2019-03-17] MEDS: SPIRONOLACTONE 25 MG TAB PO SCH (08:54)
[2019-03-17] MEDS: SERTRALINE 50 MG TAB PO SCH (08:54)
[2019-03-17] MEDS: METOPROLOL TARTRATE 25 MG TAB PO SCH (08:54)
[2019-03-17] MEDS: DOCUSATE 100 MG CAP PO SCH (08:54)
[2019-03-17] MEDS: VITAMIN E (DL,TOCOPHERYL ACET) 400 UNIT CAP PO SCH (08:54)
[2019-03-17] MEDS: CALCIUM CARB-VIT D 500MG-200UN 1 EACH TAB PO SCH (08:54)
[2019-03-17] MEDS: SERTRALINE 100 MG TAB PO SCH (08:54)
[2019-03-17] MEDS: ASCORBIC ACID 500 MG TAB PO SCH (08:54)
[2019-03-17] MEDS: LISINOPRIL 2.5 MG TAB PO SCH (08:54)
[2019-03-17 09:33] LABS: Albumin 3.7 g/dL (3.5-5.0); Calcium 9.3 mg/dL (8.4-10.2); Phosphorus 3.4 mg/dL (2.5-4.5); Potassium 4.1 mmol/L (3.5-5.1); Total Bilirubin 0.8 mg/dL (0.2-1.3); Total Protein 6.7 g/dL (6.3-8.2); Uric Acid 3.5 mg/dL (3.7-7.4)
[2019-03-17 09:37] LABS: Anisocytosis Moderate; Basophils # (A) 0.1 k/uL (0-0.2); Basophils % (A) 2 %; Eosinophils # (A) 0.1 k/uL (0-0.7); Eosinophils % (A) 2 %; HCT 26.3 % (34.0-46.0); HGB 8.1 gm/dL (11.4-16.0); Hypochromasia Moderate; Lymphocytes # (A) 0.6 k/uL (1.0-4.8); Lymphocytes % (A) 19 %; MCHC 30.9 g/dL (31.0-37.0); MCV 103.7 fL (80.0-100.0); Macrocytosis Marked; Monocytes # (A) 0.1 k/uL (0-1.0); Monocytes % (A) 4 %; Neutrophils # (A) 2.3 k/uL (1.3-7.7); Neutrophils % (A) 73 %; Platelet Count 152 k/uL (150-450); RBC 2.53 m/uL (3.80-5.40); RDW 20.4 % (11.5-15.5); WBC 3.2 k/uL (3.8-10.6)
[2019-03-17 11:55] VITALS: BP 126/71; PULSE 70; TEMP 99.2
[2019-03-17 11:56] LABS: Poikilocytosis (M) Present
[2019-03-17] MEDS: Glecaprevir/Pibrentasvir [Mavyret 100-40 Mg Tablet] PO SCH (12:41)
--- NOTE | 2019-03-17 18:02 | P.DS ---
Providers Date of admission: 03/14/19 08:39 Expected date of discharge: 03/17/19 Attending physician: Virgilio Gutiérrez Consults: 03/14/19 10:34 Consult Physician Routine Consulting Provider: Rohan Leung Consult Reason/Comments: medical management Do you want consulting provider notified?: Already Contacted Primary care physician: Virgilio Gutiérrez - Discharge Diagnosis(es) (1) NHL (non-Hodgkin's lymphoma) Status: Chronic Priority: High (2) Hepatitis C Status: Chronic Priority: Medium Hospital Course: Admitted for #3 ICE CIVI for NHL. She did well with treatment, no unmanageable side effects. She feels well and is ready for discharge Assessment: WDWN,NAD, A&Ox4, anicteric sclera, oral mucosa normal, S1S2, BBS CTA, abd soft, non-tender, BS +, no lower extremity swelling Patient Condition at Discharge: Good Plan - Discharge Summary Discharge Rx Participant: No New Discharge Prescriptions: New Prochlorperazine [Compazine] 10 mg PO Q6H PRN #50 tab PRN Reason: Nausea Polyethylene Glycol 3350 [Miralax] 17 gm PO DAILY PRN #1 box PRN Reason: Constipation Sennosides [Senna] 8.6 mg PO BID PRN #100 tablet PRN Reason: Constipation No Action Sertraline [Zoloft] 100 mg PO DAILY Ascorbic Acid [Vitamin C] 500 mg PO DAILY Metoprolol Tartrate [Lopressor] 25 mg PO BID Biotin 5 mg PO DAILY clonazePAM [KlonoPIN] 0.5 mg PO BID PRN PRN Reason: Anxiety Simvastatin [Zocor] 40 mg PO HS Lisinopril [Zestril] 2.5 mg PO DAILY Spironolactone 25 mg PO DAILY Calcium Carbonate/Vitamin D3 [Calcium 600-Vit D3 500 Softgel] 1 cap PO BID Ondansetron HCl [Zofran] 4 mg PO Q4H PRN PRN Reason: nausea Fluticasone Nasal [place] [Flonase Nasal [place]] 2 sprays EA NOSTRIL HS Psyllium Husk [Metamucil] 0.4 gm PO DAILY PRN PRN Reason: Constipation Vitamin E (Dl,Tocopheryl Acet) [Vitamin E] 400 unit PO DAILY traZODone HCL 50 mg PO HS Omeprazole 20 mg PO BID PRN PRN Reason: Heartburn Lidocaine-Prilocaine Cream [Emla Cream 2.5%/2.5%] 1 applic TOPICAL DAILY PRN PRN Reason: port access Cyclobenzaprine [Flexeril] 10 mg PO TID PRN PRN Reason: Muscle Spasm Amitriptyline HCl [Elavil] 25 mg PO HS Magnesium Citrate 230mg 230 mg PO DAILY PRN PRN Reason: Muscle Pain Sertraline HCl [Zoloft] 50 mg PO DAILY Cetirizine HCl [Zyrtec] 10 mg PO DAILY PRN PRN Reason: Allergy Symptoms Glecaprevir/Pibrentasvir [Mavyret 100-40 mg Tablet] 3 tab PO AC-LUNCH oxyCODONE-APAP 10-325MG [Percocet 10-325 mg] 1 tab PO QID PRN PRN Reason: Pain Vitamin C/Biotin [Hair, Skin and Nails] 1 tab PO DAILY Discharge Medication List Sertraline [Zoloft] 100 mg PO DAILY 06/05/14 [History] Ascorbic Acid [Vitamin C] 500 mg PO DAILY 06/07/14 [History] Metoprolol Tartrate [Lopressor] 25 mg PO BID 10/08/15 [History] Biotin 5 mg PO DAILY 10/25/18 [History] Simvastatin [Zocor] 40 mg PO HS 10/25/18 [History] clonazePAM [KlonoPIN] 0.5 mg PO BID PRN 10/25/18 [History] Calcium Carbonate/Vitamin D3 [Calcium 600-Vit D3 500 Softgel] 1 cap PO BID 12/01/18 [History] Lisinopril [Zestril] 2.5 mg PO DAILY 12/01/18 [History] Spironolactone 25 mg PO DAILY 12/01/18 [History] Fluticasone Nasal [place] [Flonase Nasal [place]] 2 sprays EA NOSTRIL HS 12/15/18 [History] Ondansetron HCl [Zofran] 4 mg PO Q4H PRN 12/15/18 [History] Psyllium Husk [Metamucil] 0.4 gm PO DAILY PRN 12/15/18 [History] Amitriptyline HCl [Elavil] 25 mg PO HS 01/24/19 [History] Cetirizine HCl [Zyrtec] 10 mg PO DAILY PRN 01/24/19 [History] Cyclobenzaprine [Flexeril] 10 mg PO TID PRN 01/24/19 [History] Glecaprevir/Pibrentasvir [Mavyret 100-40 mg Tablet] 3 tab PO AC-LUNCH 01/24/19 [History] Lidocaine-Prilocaine Cream [Emla Cream 2.5%/2.5%] 1 applic TOPICAL DAILY PRN 01/24/19 [History] Magnesium Citrate 230mg 230 mg PO DAILY PRN 01/24/19 [History] Omeprazole 20 mg PO BID PRN 01/24/19 [History] Sertraline HCl [Zoloft] 50 mg PO DAILY 01/24/19 [History] Vitamin E (Dl,Tocopheryl Acet) [Vitamin E] 400 unit PO DAILY 01/24/19 [History] traZODone HCL 50 mg PO HS 01/24/19 [History] Vitamin C/Biotin [Hair, Skin and Nails] 1 tab PO DAILY 03/14/19 [History] oxyCODONE-APAP 10-325MG [Percocet 10-325 mg] 1 tab PO QID PRN 03/14/19 [History] Polyethylene Glycol 3350 [Miralax] 17 gm PO DAILY PRN #1 box 03/17/19 [Rx] Prochlorperazine [Compazine] 10 mg PO Q6H PRN #50 tab 03/17/19 [Rx] Sennosides [Senna] 8.6 mg PO BID PRN #100 tablet 03/17/19 [Rx] Follow up Appointment(s)/Referral(s): Virgilio Gutiérrez MD [Primary Care Provider] - 03/18/19 10:30 am [facility], [NON-STAFF] - 1 Week Patient Instructions/Handouts: Prochlorperazine (By mouth), Polyethylene Glycol 3350 (By mouth), Senna (By mouth), Non-Hodgkin Lymphoma (DC) Activity/Diet/Wound Care/Special Instructions: Monitor temp, report if greater than 100.4F Ryan fluids Activity as tolerated GCSF injection at [facility] office tomorrow 1030am Diet as tolerated Discharge Disposition: HOME WITH HOME HEALTH SERVICES Pending Studies Pending Results: none
--- NOTE | 2019-03-18 00:15 | P.PN ---
Progress Note - Text Progress Note Date: 03/17/19 - Chief Complaint Chemotherapy treatment Consultation: This is a very pleasant 63-year-old patient of Dr. Weller. Rather extensive medical history. Patient initially diagnosed as a lump in the right groin in 2016 had a biopsy done at [facility] and had a diagnosis of non- Hodgkin's lymphoma. Decision was made to follow with observation. She did not follow-up for the same. She had a possible breast lump ultrasound of the breast was negative. In October 2018 she had new abdominal pain and computed tomography scan showed a mass in the right lower quadrant. Along with adenopathy. She underwent resection of the right ovary and right fallopian tube and pelvic lymph node biopsy was carried out. 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 PET scan that showed multiple areas of uptake including the left axilla. PET scan showed areas of multiple uptake including left axilla, mediastinum, left breast, multiple areas in the retro-peritoneal.. She was hepatitis C positive. 2-D echo showed EF of 45%. She also had a cardiac catheterization in October 2018 came back to be negative. Patient was started with chemotherapy. Admitted with-cycle 3 of ICE chemotherapy for non-Hodgkin's lymphoma. Patient appetite has been fair. No diarrhea. No urinary symptoms. No skin changes. Loss of scalp hair. Does feel a bit tired. Today-. Completed course of chemotherapy. Doing well. No new issues. Breathing stable. No denies diarrhea. Tolerating diet.. Review of systems: Was done for constitutional, cardiovascular, GI, pulmonary. relevant finding as above Current medications reviewed in today's electronic records Physical examination: VITAL SIGNS: 99.2, 70, 16, 126/71, 100% room air GENERAL: Sitting up, comfortable EYES: Pupils equal. Conjunctiva pale. HEENT: External appearance of nose and ears normal, oral cavity normal. NECK: JVD not raised; masses not palpable. HEART: First and second heart sounds are normal; no edema. LUNGS: Respiratory rate normal; decreased breath sounds. ABDOMEN: Soft, non- tenderness, liver spleen not palpable, no masses palpable. PSYCH: Alert and oriented x3; mood and affect normal INVESTIGATIONS, reviewed in the clinical context: White count 3.2 hemoglobin 8.1 potassium 4.1 creatinine 0.94 Previous testing White count 5.2 hemoglobin 9.1 potassium 4.2 creatinine 0.91 Assessment: -Non-Hodgkin's lymphoma for -third cycle of ICE regimen chemotherapy -Bicytopenia from chemotherapy -Hepatitis C -Cardiomyopathy EF 35-40% cause unknown -Essential hypertension -Hyperlipidemia -Normocytic anemia likely from chemotherapy -Chronic nicotine dependence patient cigarette smoker Plan: Patient complete a course of chemotherapy. Medically stable. Labs to be followed as an outpatient. Thank you Dr. Gutiérrez
== END 2019-03-17 15:35 | disposition home or self-care (01) | DRG 847 ==
LOC: 5NMEDONC 08:39
PROVIDERS: ADMIT Internal Medicine Hematology & Oncology; ATTEND Internal Medicine Hematology & Oncology
DX: Z51.11 Encounter for antineoplastic chemotherapy (principal); C85.16 Unspecified B-cell lymphoma, intrapelvic lymph nodes; I42.9 Cardiomyopathy, unspecified; B19.20 Unspecified viral hepatitis C without hepatic coma; T45.1X5A Adverse effect of antineoplastic and immunosuppressive drugs, initial encounter; E78.5 Hyperlipidemia, unspecified; F17.210 Nicotine dependence, cigarettes, uncomplicated; F32.9 Major depressive disorder, single episode, unspecified; F41.9 Anxiety disorder, unspecified; I10 Essential (primary) hypertension; I48.91 Unspecified atrial fibrillation; G43.909 Migraine, unspecified, not intractable, without status migrainosus; G89.29 Other chronic pain; M54.2 Cervicalgia; M54.5 Low back pain; D64.81 Anemia due to antineoplastic chemotherapy; Z79.899 Other long term (current) drug therapy; Z87.01 Personal history of pneumonia (recurrent); Z90.79 Acquired absence of other genital organ(s); Z90.721 Acquired absence of ovaries, unilateral; Z82.0 Family history of epilepsy and other diseases of the nervous system; Z82.49 Family history of ischemic heart disease and other diseases of the circulatory system; Z82.5 Family history of asthma and other chronic lower respiratory diseases
CPT/HCPCS: 80053; 84100; 84550; 85025

== ENCOUNTER 2019-04-06 08:08 | Inpatient (IN) | payer MEDICARE, OTHER ==
[2019-04-06 09:54] LABS: Albumin 4.6 g/dL (3.5-5.0); Calcium 9.5 mg/dL (8.4-10.2); Phosphorus 3.6 mg/dL (2.5-4.5); Potassium 4.7 mmol/L (3.5-5.1); Total Bilirubin 0.5 mg/dL (0.2-1.3); Total Protein 8.2 g/dL (6.3-8.2); Uric Acid 2.8 mg/dL (3.7-7.4)
[2019-04-06 10:22] LABS: Anisocytosis Moderate; Basophils % (A) 1 %; Eosinophils # (A) 0.1 k/uL (0-0.7); Eosinophils % (A) 2 %; HCT 26.3 % (34.0-46.0); HGB 8.5 gm/dL (11.4-16.0); Hypochromasia Slight; Lymphocytes # (A) 0.8 k/uL (1.0-4.8); Lymphocytes % (A) 18 %; MCH 34.7 pg (25.0-35.0); MCHC 32.4 g/dL (31.0-37.0); MCV 106.9 fL (80.0-100.0); Macrocytosis Marked; Mean Platelet Volume 7.8; Monocytes # (A) 0.5 k/uL (0-1.0); Monocytes % (A) 10 %; Neutrophils # (A) 3.1 k/uL (1.3-7.7); Neutrophils % (A) 66 %; Platelet Count 176 k/uL (150-450); RBC 2.46 m/uL (3.80-5.40); RDW 20.4 % (11.5-15.5); WBC 4.7 k/uL (3.8-10.6)
[2019-04-06] MEDS: SODIUM CHLORIDE 0.9% 1,000 ML IV SCH ×2 (10:50→16:46)
[2019-04-06] MEDS: FAMOTIDINE 20 MG/2 ML VIAL IV SCH (10:55)
[2019-04-06] MEDS: ONDANSETRON 16 MG in SODIUM CHLORIDE 0.9% 50 ML IVPB SCH (10:59)
[2019-04-06] MEDS ORDERED: RITUXIMAB IV NR ×2 (12:00→16:00)
[2019-04-06] MEDS ORDERED: SODIUM CHLORIDE 0.9% IV ONE (12:00)
[2019-04-06] MEDS ORDERED: SODIUM CHLORIDE 0.9% IV NR ×2 (12:00→16:00)
[2019-04-06] MEDS ORDERED: RITUXIMAB IV ONE (12:00)
[2019-04-06 12:23] LABS: Poikilocytosis (M) Present
--- NOTE | 2019-04-06 14:15 | P.HPIM ---
History of Present Illness H&P Date: 04/06/19 Chief Complaint: CIVI Non Hodgkins Lymphoma Patient admitted for CIVI RICE regimen (Hep C managed, rituxan added this cycle), cycle #4 chemotherapy treatment for non Hodgkins lymphoma. Seen in bed in good spirits, has mild chronic back pain, metallic taste in mouth only during chemotherapy administration, very minor decrease in strength, denies changes in cognition, mouth pain, trouble swallowing, difficulty in breathing, dizziness, vertigo, palpitations, chest discomfort, rash, bruising, numbness, tingling, decrease in appetite, abdominal pain, nausea, vomiting, constipation, diarrhea, dysuria, change appearance of urine, change in gait. Malignancy History: Initially diagnosed in 2006 at [place], told Non- Hodgkin's lymphoma with lymph nodes above and below the diaphragm. She was seen by Dr. Gonzalez with observation was recommended. However she did not follow-up since 2007 and eventually move to the area, no oncology care since in between. She was asymptomatic so she continued on observation. 10/25 she had c/o new onset RLQ abdominal pain, progressive over 7-[address] AP 10/27/18 showing a mixed density mass in the right lower quadrant, with soft tissue density, felt to be related to phlegmon or abscess. There was some mild right- sided inguinal and retroperitoneal adenopathy that was unchanged. She underwent surgery on 10/28/18 with resection of the right ovary and right fallopian tube as well as pelvic lymph node biopsy. Path showed evidence of high-grade B cell non-Hodgkin lymphoma in the pelvic lymph node, benign ovarian fibroma and atrophic fallopian tube with associated lymphoid tissue with atypical lymphoproliferative process. Double hit/triple hit was ruled out as MYC rearrangement was negative. PET showed multiple areas of uptake including left axilla, mediastinum, left breast, multiple areas in the retroperitoneum, most prominently in the aortocaval region. She was found to be hepatitis C positive and is on antiviral treatment for the same since 2nd cycle of treatment. EF was 45% so, she was started on CEOP, 1st cycle 12/13/18 and is s/p 2 cycles. GCSF was added with C2. PET after C 2 showed improvement, but still persistent uptake in multiple areas, including retropectoral, retroperitoneal, and pelvis. She was switched to ICE and is s/p 3 cycles. Review of Systems Constitutional: Reports as per HPI, Reports chronic headaches, Reports chronic pain, Denies chills, Denies fatigue, Denies fever, Denies night sweats, Denies poor appetite, Denies weakness, Denies weight loss Ears, nose, mouth and throat: Denies as per HPI, Denies headache, Denies mouth pain, Denies neck lump, Denies sore throat, Denies vertigo Cardiovascular: Denies as per HPI, Denies chest pain, Denies decreased exercise tolerance, Denies dyspnea on exertion, Denies edema, Denies irregular heart beat, Denies leg edema, Denies lightheadedness, Denies palpitations, Denies rapid heart beat, Denies shortness of breath, Denies syncope Respiratory: Denies as per HPI, Denies cough, Denies cough with sputum Gastrointestinal: Denies as per HPI, Denies abdominal pain, Denies change in bowel habits, Denies constipation, Denies diarrhea, Denies loss of appetite, Denies nausea, Denies vomiting Genitourinary: Denies as per HPI, Denies difficulty voiding, Denies dysuria, Denies hematuria, Denies urgency, Denies urinary frequency Musculoskeletal: Reports low back pain, Reports muscle weakness (states very minor decrease in strength since diagnosis), Denies as per HPI, Denies arm numbness/tingling, Denies frequent falls, Denies gait dysfunction, Denies leg numbness/tingling, Denies limitation of motion Integumentary: Reports as per HPI, Denies color changes, Denies rash, Denies unusual bruising, Denies wounds Neurological: Reports hearing difficulties, Reports loss of vision, Reports migraines, Denies balance difficulties, Denies change in mentation, Denies confusion, Denies gait dysfunction, Denies lack of coordination, Denies memory loss, Denies motor disturbance, Denies numbness, Denies sensory deficit, Denies syncope, Denies tingling, Denies vertigo Psychiatric: Denies anxiety, Denies change in sleep habits, Denies sleep disturbances Endocrine: Denies fatigue, Denies nocturia, Denies polyuria, Denies weight change Hematologic/Lymphatic: Denies easy bruising, Denies lymphadenopathy Past Medical History Past Medical History: Atrial Fibrillation, Cancer, Chest Pain / Angina, Eye Disorder, Hyperlipidemia, Hypertension, Liver Disease, Musculoskeletal Disorder, Pneumonia, Renal Disease Additional Past Medical History / Comment(s): 2006 nonhodgkins lymphoma-pt states no treatment needed, 10/2018 reoccurrence nonhodgkins lymphoma-received 2 rounds chemo/pet scan recently showed persistent abnormal uptake in chest/abdomin-pt recieving ICE chemo, abdominal pain/constipation, newly diagnosed hepatitis C-tx with medication and has been told she is cured, DDD, chronic low back pain/cervical pain (sees Dr. Cummins for pain management), migraines, decreased renal function with steroid/nsaid use. History of Any Multi-Drug Resistant Organisms: None Reported Past Surgical History: Heart Catheterization, Orthopedic Surgery Additional Past Surgical History / Comment(s): 2006 R groin lump biopsy at [facility], 10/28/18 Exploratory laparotomy with tubo-ovarian cancer/R salpingo- oophorectomy/removal pelvic lymph nodes, 12/03/18 Port a cath, 12/20/18 cardiac cath-normal/CHIQUIS, 2015 cardiac cath, vaginal polypectomy, R shoulder arthroscopy/rotator cuff repair x2, R knee arthroscopy, ORIF R ankle with plates/screws. Past Anesthesia/Blood Transfusion Reactions: No Reported Reaction Smoking Status: Current every day smoker - Past Family History Mother Family Medical History: COPD, Coronary Artery Disease (CAD), Myocardial Infarction ([place]), Seizure Disorder Additional Family Medical History / Comment(s): Mother had a [place] at the age of 76yrs. She from fall/facial injury and aspirated blood. Father Family Medical History: Coronary Artery Disease (CAD), Seizure Disorder Additional Family Medical History / Comment(s): Father had a seizure while driving resulting in a MVA in which he . Medications and Allergies Home Medications Medication Instructions Recorded Confirmed Type Sertraline [Zoloft] 100 mg PO DAILY 06/05/14 04/06/19 History Ascorbic Acid [Vitamin C] 500 mg PO DAILY 06/07/14 04/06/19 History Metoprolol Tartrate [Lopressor] 25 mg PO BID 10/08/15 04/06/19 History Biotin 5 mg PO DAILY 10/25/18 04/06/19 History Simvastatin [Zocor] 40 mg PO HS 10/25/18 04/06/19 History clonazePAM [KlonoPIN] 0.5 mg PO BID PRN 10/25/18 04/06/19 History Calcium Carbonate/Vitamin D3 1 cap PO BID 12/01/18 04/06/19 History [Calcium 600-Vit D3 500 Softgel] Lisinopril [Zestril] 2.5 mg PO DAILY 12/01/18 04/06/19 History Spironolactone 25 mg PO DAILY 12/01/18 04/06/19 History Fluticasone Nasal [place] [Flonase 2 sprays EA NOSTRIL HS PRN 12/15/18 04/06/19 History Nasal [place]] Ondansetron HCl [Zofran] 4 mg PO Q4H PRN 12/15/18 04/06/19 History Psyllium Husk [Metamucil] 0.4 gm PO DAILY PRN 12/15/18 04/06/19 History Amitriptyline HCl [Elavil] 25 mg PO HS 01/24/19 04/06/19 History Cetirizine HCl [Zyrtec] 10 mg PO DAILY PRN 01/24/19 04/06/19 History Cyclobenzaprine [Flexeril] 10 mg PO TID PRN 01/24/19 04/06/19 History Magnesium Citrate 230mg 230 mg PO DAILY PRN 01/24/19 04/06/19 History Omeprazole 20 mg PO BID PRN 01/24/19 04/06/19 History Sertraline HCl [Zoloft] 50 mg PO DAILY 01/24/19 04/06/19 History Vitamin E (Dl,Tocopheryl Acet) 400 unit PO DAILY 01/24/19 04/06/19 History [Vitamin E] traZODone HCL 50 mg PO HS 01/24/19 04/06/19 History Vitamin C/Biotin [Hair, Skin and 1 tab PO DAILY 03/14/19 04/06/19 History Nails] oxyCODONE-APAP 10-325MG [Percocet 1 tab PO QID PRN 03/14/19 04/06/19 History 10-325 mg] Polyethylene Glycol 3350 [Miralax] 17 gm PO DAILY PRN #1 box 03/17/19 04/06/19 Rx Prochlorperazine [Compazine] 10 mg PO Q6H PRN #50 tab 03/17/19 04/06/19 Rx Sennosides [Senna] 8.6 mg PO BID PRN #100 tablet 03/17/19 04/06/19 Rx Allergies Allergy/AdvReac Type Severity Reaction Status Date / Time NSAIDS (Non-Steroidal AdvReac Swelling Verified 04/06/19 10:03 Anti-Inflamma Physical Exam Vitals: Vital Signs Temp Pulse Resp BP Pulse Ox 04/06/19 12:03 97.9 F 72 20 113/52 100 Intake and Output 04/05/19 04/06/19 04/06/19 22:59 06:59 14:59 Intake Total 28 Balance 28 Intake: Intake, IV Titration 28 Amount riTUXimab 630 mg In 28 Sodium Chloride 0.9% 500 ml 500 ml @ Titrate IV . Q0M ONE Rx#:[id number] Other: Weight 60 kg - Constitutional General appearance: average body habitus, cooperative, no acute distress - EENT Eyes: anicteric sclerae, edentulous, EOMI, normal appearance ENT: hearing grossly normal, normal oropharynx - Neck Neck: normal ROM - Respiratory Respiratory: bilateral: CTA - Cardiovascular Rhythm: regular Heart sounds: normal: S1, S2 Abnormal Heart Sounds: no systolic murmur, no diastolic murmur, no rub, no S3 Gallop, no S4 Gallop, no click - Gastrointestinal General gastrointestinal: normal bowel sounds, soft - Integumentary Integumentary: normal - Neurologic Neurologic: CNII-XII intact - Musculoskeletal Musculoskeletal: strength equal bilaterally - Psychiatric Psychiatric: A&O x's 3, appropriate affect, intact judgment & insight Results CBC & Chem 7: 04/06/19 08:49 04/06/19 08:49 Labs: Abnormal Lab Results - Last 24 Hours (Table) 04/06/19 04/06/19 Range/Units 08:49 08:49 RBC 2.46 L (3.80-5.40) m/uL Hgb 8.5 L (11.4-16.0) gm/dL Hct 26.3 L (34.0-46.0) % MCV 106.9 H (80.0-100.0) fL RDW 20.4 H (11.5-15.5) % Lymphocytes # 0.8 L (1.0-4.8) k/uL Macrocytosis Marked A BUN 18 H (7-17) mg/dL Creatinine 1.09 H (0.52-1.04) mg/dL Uric Acid 2.8 L (3.7-7.4) mg/dL Thrombosis Risk Factor Assmnt - DVT/VTE Prophylaxis DVT/VTE Prophylaxis: Pharmacologic Prophylaxis ordered - Choose All That Apply Any of the Below Risk Factors Present?: Yes Other Risk Factors: Yes Each Risk Factor Represents 2 Points: Age 61-74 years, Malignancy Other congenital or acquired thrombophilia - If yes, enter type in comment: No Thrombosis Risk Factor Assessment Total Risk Factor Score: 4 Thrombosis Risk Factor Assessment Level: Moderate Risk Assessment and Plan (1) NHL (non-Hodgkin's lymphoma) Narrative/Plan: RICE regimen chemotherapy round #4 given during this admission Supportive meds ordered Daily labs Daily F/U IM consulted Ambulation scheduled daily Diet as tolerated Current Visit: No Status: Chronic Priority: High Code(s): C85.90 - NON- HODGKIN LYMPHOMA, UNSPECIFIED, UNSPECIFIED SITE SNOMED Code(s): 419239153
[2019-04-06] MEDS ORDERED: methylPREDNISolone SOD SUCCI 125 MG/2 ML VIAL IV ONE (16:00)
[2019-04-06] MEDS: ETOPOSIDE IV SCH (16:36)
[2019-04-06] MEDS: SODIUM CHLORIDE 0.9% IV SCH (16:36)
[2019-04-06] MEDS ORDERED: clonazePAM 0.5 MG TAB PO PRN (18:40)
[2019-04-06] MEDS ORDERED: LORATADINE 10 MG TAB PO PRN (18:40)
[2019-04-06] MEDS ORDERED: POLYETHYLENE GLYCOL 3350 17 GM POWD.PACK PO PRN (18:40)
[2019-04-06] MEDS ORDERED: oxyCODONE-APAP 10-325MG 1 EACH TAB PO PRN (18:40)
[2019-04-06] MEDS ORDERED: CYCLOBENZAPRINE 10 MG TAB PO PRN (18:40)
[2019-04-06] MEDS ORDERED: PANTOPRAZOLE 40 MG TABLET PO PRN (18:40)
--- NOTE | 2019-04-06 19:07 | P.CONS ---
History of Present Illness - Reason for Consult Consult date: 04/06/19 Medical management Requesting physician: Parish Mims - Chief Complaint Chemotherapy treatment - History of Present Illness - Chief Complaint Chemotherapy treatment Consultation: This is a very pleasant 63-year-old patient of Dr. Weller. Rather extensive medical history. Patient initially diagnosed as a lump in the right groin in 2016 had a biopsy done at [facility] and had a diagnosis of non- Hodgkin's lymphoma. Decision was made to follow with observation. She did not follow-up for the same. She had a possible breast lump ultrasound of the breast was negative. In October 2018 she had new abdominal pain and computed tomography scan showed a mass in the right lower quadrant. Along with adenopathy. She underwent resection of the right ovary and right fallopian tube and pelvic lymph node biopsy was carried out. 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 PET scan that showed multiple areas of uptake including the left axilla. PET scan showed areas of multiple uptake including left axilla, mediastinum, left breast, multiple areas in the retro-peritoneal.. She was hepatitis C positive. 2-D echo showed EF of 45%. She also had a cardiac catheterization in October 2018 came back to be negative. Patient was started with chemotherapy. High-grade B-cell non-Hodgkin's lymphoma. He recently told that her hepatitis C was become negative. Admitted for the fourth cycle of chemotherapy. Patient's appetite has been fair. No skin changes. No changes in cognition. Has loss of hair. No change in bowel or urine pattern. No new joint pains. at the bedside. Review of systems: GEN.: None EYES: None HEENT: Loss of hair NECK: None RESPIRATORY: None CARDIOVASCULAR: None GASTROINTESTINAL: None GENITOURINARY: None MUSCULOSKELETAL: Some chronic low back pain LYMPHATICS: None HEMATOLOGICAL: None PSYCHIATRY: None NEUROLOGICAL: None Past medical history to include: High-grade B-cell non-Hodgkin's lymphoma, hepatitis C, cardiomyopathy EF 45% atrial fibrillation, hypertension, hyperlipidemia chronic low back pain. She follows with Dr. 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 Alcohol occa sionally Physical examination: VITAL SIGNS: 97.9, 72, 20, 11 3/52, 100% on room air GENERAL: BMI 32, propped up in bed, comfortable EYES: Pupils equal. Conjunctiva pale. HEENT: External appearance of nose and ears normal, oral cavity normal. Loss of scalp hair NECK: JVD not raised; masses not palpable. HEART: First and second heart sounds are normal; no edema. LUNGS: Respiratory rate normal; decreased breath sounds. ABDOMEN: Soft, non- tenderness, liver spleen not palpable, no masses palpable. PSYCH: Alert and oriented x3; mood and affect normal NEUROLOGICAL: Cranial nerves grossly intact, power and sensation grossly intact INVESTIGATIONS, reviewed in the clinical context: White count 4.7 hemoglobin 8.5 platelets 176 potassium 4.7 bun 18 creatinine 1.09 Assessment: -High-grade B-cell Non-Hodgkin's lymphoma for -fourth cycle chemotherapy -Hepatitis C -Idiopathic Cardiomyopathy EF 35-40% -Essential hypertension -Hyperlipidemia -Normocytic anemia likely from chemotherapy -Chronic nicotine dependence patient cigarette smoker Plan: Patient be started on chemotherapy today. We will continue with patient's home medications. Hold off HOLLAND inhibitor. Continue with beta marissa. Will also hold off on the Aldactone as the creatinine is slightly up. Care was discussed with the patient and question were answered. Thank you Dr. Mims Past Medical History Past Medical History: Atrial Fibrillation, Cancer, Chest Pain / Angina, Eye Disorder, Hyperlipidemia, Hypertension, Liver Disease, Musculoskeletal Disorder, Pneumonia, Renal Disease Additional Past Medical History / Comment(s): 2006 nonhodgkins lymphoma-pt states no treatment needed, 10/2018 reoccurrence nonhodgkins lymphoma-received 2 rounds chemo/pet scan recently showed persistent abnormal uptake in chest/abdomin-pt recieving ICE chemo, abdominal pain/constipation, newly diagnosed hepatitis C-tx with medication and has been told she is cured, DDD, chronic low back pain/cervical pain (sees Dr. Cummins for pain management), migraines, decreased renal function with steroid/nsaid use. History of Any Multi-Drug Resistant Organisms: None Reported Past Surgical History: Heart Catheterization, Orthopedic Surgery Additional Past Surgical History / Comment(s): 2006 R groin lump biopsy at [facility], 10/28/18 Exploratory laparotomy with tubo-ovarian cancer/R salpingo- oophorectomy/removal pelvic lymph nodes, 12/03/18 Port a cath, 12/20/18 cardiac cath-normal/CHIQUIS, 2016 cardiac cath, vaginal polypectomy, R shoulder arthroscopy/rotator cuff repair x2, R knee arthroscopy, ORIF R ankle with plates/screws. Past Anesthesia/Blood Transfusion Reactions: No Reported Reaction Smoking Status: Current every day smoker - Past Family History Mother Family Medical History: COPD, Coronary Artery Disease (CAD), Myocardial Infarction ([place]), Seizure Disorder Additional Family Medical History / Comment(s): Mother had a [place] at the age of 76yrs. She from fall/facial injury and aspirated blood. Father Family Medical History: Coronary Artery Disease (CAD), Seizure Disorder Additional Family Medical History / Comment(s): Father had a seizure while driving resulting in a MVA in which he . Medications and Allergies Home Medications Medication Instructions Recorded Confirmed Type Sertraline [Zoloft] 100 mg PO DAILY 06/05/14 04/06/19 History Ascorbic Acid [Vitamin C] 500 mg PO DAILY 06/07/14 04/06/19 History Metoprolol Tartrate [Lopressor] 25 mg PO BID 10/08/15 04/06/19 History Biotin 5 mg PO DAILY 10/25/18 04/06/19 History Simvastatin [Zocor] 40 mg PO HS 10/25/18 04/06/19 History clonazePAM [KlonoPIN] 0.5 mg PO BID PRN 10/25/18 04/06/19 History Calcium Carbonate/Vitamin D3 1 cap PO BID 12/01/18 04/06/19 History [Calcium 600-Vit D3 500 Softgel] Lisinopril [Zestril] 2.5 mg PO DAILY 12/01/18 04/06/19 History Spironolactone 25 mg PO DAILY 12/01/18 04/06/19 History Fluticasone Nasal [place] [Flonase 2 sprays EA NOSTRIL HS PRN 12/15/18 04/06/19 History Nasal [place]] Ondansetron HCl [Zofran] 4 mg PO Q4H PRN 12/15/18 04/06/19 History Psyllium [place]k [Metamucil] 0.4 gm PO DAILY PRN 12/15/18 04/06/19 History Amitriptyline HCl [Elavil] 25 mg PO HS 01/24/19 04/06/19 History Cetirizine HCl [Zyrtec] 10 mg PO DAILY PRN 01/24/19 04/06/19 History Cyclobenzaprine [Flexeril] 10 mg PO TID PRN 01/24/19 04/06/19 History Magnesium Citrate 230mg 230 mg PO DAILY PRN 01/24/19 04/06/19 History Omeprazole 20 mg PO BID PRN 01/24/19 04/06/19 History Sertraline HCl [Zoloft] 50 mg PO DAILY 01/24/19 04/06/19 History Vitamin E (Dl,Tocopheryl Acet) 400 unit PO DAILY 01/24/19 04/06/19 History [Vitamin E] traZODone HCL 50 mg PO HS 01/24/19 04/06/19 History Vitamin C/Biotin [Hair, Skin and 1 tab PO DAILY 03/14/19 04/06/19 History Nails] oxyCODONE-APAP 10-325MG [Percocet 1 tab PO QID PRN 03/14/19 04/06/19 History 10-325 mg] Polyethylene Glycol 3350 [Miralax] 17 gm PO DAILY PRN #1 box 03/17/19 04/06/19 Rx Prochlorperazine [Compazine] 10 mg PO Q6H PRN #50 tab 03/17/19 04/06/19 Rx Sennosides [Senna] 8.6 mg PO BID PRN #100 tablet 03/17/19 04/06/19 Rx Allergies Allergy/AdvReac Type Severity Reaction Status Date / Time NSAIDS (Non-Steroidal AdvReac Swelling Verified 04/06/19 10:03 Anti-Inflamma Physical Exam Vitals: Vital Signs Temp Pulse Resp BP Pulse Ox 04/06/19 16:00 99.3 F 73 20 116/52 100 04/06/19 12:03 97.9 F 72 20 113/52 100 Intake and Output 04/06/19 04/06/19 04/06/19 06:59 14:59 22:59 Intake Total 340.000 176.667 Balance 340.000 176.667 Intake: Intake, IV Titration 340.000 176.667 Amount riTUXimab 630 mg In 340.000 176.667 Sodium Chloride 0.9% 500 ml 500 ml @ Titrate IV . Q0M ONE Rx#:[id number] Other: Voiding Method Toilet Weight 60 kg Results CBC & Chem 7: 04/06/19 08:49 04/06/19 08:49 Labs: Abnormal Lab Results - Last 24 Hours (Table) 04/06/19 04/06/19 Range/Units 08:49 08:49 RBC 2.46 L (3.80-5.40) m/uL Hgb 8.5 L (11.4-16.0) gm/dL Hct 26.3 L (34.0-46.0) % MCV 106.9 H (80.0-100.0) fL RDW 20.4 H (11.5-15.5) % Lymphocytes # 0.8 L (1.0-4.8) k/uL Macrocytosis Marked A BUN 18 H (7-17) mg/dL Creatinine 1.09 H (0.52-1.04) mg/dL Uric Acid 2.8 L (3.7-7.4) mg/dL
[2019-04-06] MEDS: ATORVASTATIN 20 MG TAB PO SCH (20:18)
[2019-04-06] MEDS: CALCIUM CARB-VIT D 500MG-200UN 1 EACH TAB PO SCH (20:18)
[2019-04-06] MEDS: traZODone HCL 50 MG TAB PO SCH (20:19)
[2019-04-06] MEDS: METOPROLOL TARTRATE 25 MG TAB PO SCH (20:19)
[2019-04-06] MEDS: AMITRIPTYLINE HCL 25 MG TAB PO SCH (20:33)
[2019-04-07] MEDS: SODIUM CHLORIDE 0.9% 1,000 ML IV SCH ×4 (02:06→23:36)
[2019-04-07] MEDS: CALCIUM CARB-VIT D 500MG-200UN 1 EACH TAB PO SCH ×2 (09:05→19:41)
[2019-04-07] MEDS: SERTRALINE 100 MG TAB PO SCH (09:05)
[2019-04-07] MEDS: VITAMIN E (DL,TOCOPHERYL ACET) 400 UNIT CAP PO SCH ×2 (09:05→09:09)
[2019-04-07] MEDS: METOPROLOL TARTRATE 25 MG TAB PO SCH ×2 (09:05→19:41)
[2019-04-07] MEDS: ASCORBIC ACID 500 MG TAB PO SCH (09:06)
[2019-04-07] MEDS: NON FORMULARY DRUG (Vitamin C/Biotin [Hair, Skin And Nails] 1 TAB) PO SCH (09:06)
[2019-04-07] MEDS: SERTRALINE 50 MG TAB PO SCH (09:06)
[2019-04-07 09:09] LABS: Anisocytosis Moderate; Basophils % (A) 1 %; Eosinophils % (A) 1 %; HCT 23.4 % (34.0-46.0); HGB 7.4 gm/dL (11.4-16.0); Hypochromasia Slight; Lymphocytes # (A) 0.8 k/uL (1.0-4.8); Lymphocytes % (A) 18 %; MCH 34.2 pg (25.0-35.0); MCHC 31.8 g/dL (31.0-37.0); MCV 107.7 fL (80.0-100.0); Macrocytosis Marked; Mean Platelet Volume 7.6; Monocytes # (A) 0.4 k/uL (0-1.0); Monocytes % (A) 9 %; Neutrophils % (A) 68 %; Platelet Count 184 k/uL (150-450); RBC 2.17 m/uL (3.80-5.40); RDW 20.4 % (11.5-15.5); WBC 4.4 k/uL (3.8-10.6)
[2019-04-07 09:50] LABS: Albumin 3.9 g/dL (3.5-5.0); Phosphorus 3.3 mg/dL (2.5-4.5); Potassium 4.3 mmol/L (3.5-5.1); Total Bilirubin 0.4 mg/dL (0.2-1.3); Total Protein 7.1 g/dL (6.3-8.2); Uric Acid 3.6 mg/dL (3.7-7.4)
--- NOTE | 2019-04-07 11:28 | P.PN ---
Subjective Progress Note Date: 04/07/19 Principal diagnosis: CIVI RICE for DLBC NHL Patient in for chemotherapy treatment for NHL day #2 of RICE cycle. Denies headache, change in thought process, vision changes, mouth sores, nasal congestion, bruising, rash, lymphadenopathy, chest discomfort, dizziness, vertigo, palpitations, difficulty in breathing, cough, trouble swallowing, nausea, vomiting, diarrhea, constipation, dysuria, anuria, decrease strength, abnormal gait, numbness, tingling, pain, discomfort, or anxiety. Objective - Vital Signs Vital signs: Vital Signs Temp 98.7 F 04/07/19 08:00 Pulse 71 04/07/19 08:00 Resp 16 04/07/19 08:00 BP 110/56 04/07/19 08:00 Pulse Ox 100 04/07/19 08:00 Intake & Output 04/06/19 04/07/19 04/07/19 18:59 06:59 18:59 Intake Total 297.842 5957 Balance 840.174 0727 Weight 60 kg Intake: Intake, IV Titration 516.667 375 Amount Sodium Chloride 0.9% 1, 375 000 ml @ 125 mls/hr IV . Q8H MC Rx#:[id number] riTUXimab 630 mg In 516.667 Sodium Chloride 0.9% 500 ml 500 ml @ Titrate IV . Q0M ONE Rx#:[id number] Oral 1180 Other: Voiding Method Toilet Toilet Toilet # Voids 1 - Constitutional General appearance: Present: average body habitus, cooperative, no acute distress - EENT Eyes: Present: anicteric sclerae, edentulous, EOMI, normal appearance ENT: Present: hearing grossly normal, normal oropharynx - Neck Neck: Present: normal ROM - Respiratory Respiratory: bilateral: CTA - Cardiovascular Rhythm: regular Heart sounds: normal: S1, S2 Abnormal Heart Sounds: Absent: systolic murmur, diastolic murmur, rub, S3 Gallop, S4 Gallop, click - Peripheral edema leg Peripheral Edema: bilateral: None - Gastrointestinal General gastrointestinal: Present: normal bowel sounds, soft. Absent: absent bowel sounds, decreased bowel sounds, distended, hepatomegaly, hyperactive bowel sounds, organomegaly, rigid, scaphoid, splenomegaly, tenderness, umbilical hernia, ventral hernia - Integumentary Integumentary: Present: normal - Neurologic Neurologic: Present: CNII-XII intact - Musculoskeletal Musculoskeletal: Present: gait normal, strength equal bilaterally - Psychiatric Psychiatric: Present: A&O x's 3, appropriate affect, intact judgment & insight - Labs CBC & Chem 7: 04/07/19 08:03 04/07/19 08:03 Labs: Abnormal Lab Results - Last 24 Hours (Table) 04/06/19 04/07/19 04/07/19 Range/Units 08:49 08:03 08:03 RBC 2.46 L 2.17 L (3.80-5.40) m/uL Hgb 8.5 L 7.4 L (11.4-16.0) gm/dL Hct 26.3 L 23.4 L (34.0-46.0) % MCV 106.9 H 107.7 H (80.0-100.0) fL RDW 20.4 H 20.4 H (11.5-15.5) % Lymphocytes # 0.8 L 0.8 L (1.0-4.8) k/uL Macrocytosis Marked A Marked A Chloride 110 H (98-107) mmol/L Creatinine 1.08 H (0.52-1.04) mg/dL Glucose 116 H (74-99) mg/dL Uric Acid 3.6 L (3.7-7.4) mg/dL Assessment and Plan (1) NHL (non-Hodgkin's lymphoma) Narrative/Plan: Day # 2 RICE regimen chemotherapy round #4 given during this admission Supportive meds ordered Daily labs Daily F/U IM following Ambulation scheduled daily Diet as tolerated Current Visit: No Status: Chronic Priority: High Code(s): C85.90 - NON- HODGKIN LYMPHOMA, UNSPECIFIED, UNSPECIFIED SITE SNOMED Code(s): 187188301 Plan: Internal medicine following for medical management Doctor attests: I performed a history and physical examination of this patient, developed impression and plan of care, discussed with dictator. I agree with dictators note, documented as a scribe.
[2019-04-07] MEDS: ONDANSETRON 16 MG in SODIUM CHLORIDE 0.9% 50 ML IVPB SCH (12:41)
[2019-04-07] MEDS: DEXAMETHASONE SOD PHOSPHATE 10 MG/ML 1 ML VIAL IV SCH (12:41)
[2019-04-07] MEDS: FAMOTIDINE 20 MG/2 ML VIAL IV SCH (12:45)
[2019-04-07] MEDS: ETOPOSIDE IV SCH (13:21)
[2019-04-07] MEDS: SODIUM CHLORIDE 0.9% IV SCH (13:21)
[2019-04-07 14:01] VITALS: BMI 22.0
[2019-04-07] MEDS ORDERED: SODIUM CHLORIDE 0.9% IV ONE ×3 (16:00)
[2019-04-07] MEDS ORDERED: CARBOplatin 550 MG in SODIUM CHLORIDE 0.9% 250 ML IV ONE (16:00)
[2019-04-07] MEDS ORDERED: IFOSFAMIDE IV ONE (16:00)
[2019-04-07] MEDS ORDERED: MESNA IV ONE ×2 (16:00)
[2019-04-07] MEDS: traZODone HCL 50 MG TAB PO SCH (19:41)
[2019-04-07] MEDS: AMITRIPTYLINE HCL 25 MG TAB PO SCH (19:41)
[2019-04-07] MEDS: ATORVASTATIN 20 MG TAB PO SCH (19:42)
--- NOTE | 2019-04-07 21:41 | P.PN ---
Progress Note - Text Progress Note Date: 04/07/19 - Chief Complaint Chemotherapy treatment Interval history: This is a very pleasant 63-year-old patient of Dr. Weller. Rather extensive medical history. Patient initially diagnosed as a lump in the right groin in 2016 had a biopsy done at [facility] and had a diagnosis of non- Hodgkin's lymphoma. Decision was made to follow with observation. She did not follow-up for the same. She had a possible breast lump ultrasound of the breast was negative. In October 2018 she had new abdominal pain and computed tomography scan showed a mass in the right lower quadrant. Along with adenopathy. She underwent resection of the right ovary and right fallopian tube and pelvic lymph node biopsy was carried out. 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 PET scan that showed multiple areas of uptake including the left axilla. PET scan showed areas of multiple uptake including left axilla, mediastinum, left breast, multiple areas in the retro-peritoneal.. She was hepatitis C positive. 2-D echo showed EF of 45%. She also had a cardiac catheterization in October 2018 came back to be negative. Patient was started with chemotherapy. High-grade B-cell non-Hodgkin's lymphoma. He recently told that her hepatitis C was become negative. Admitted for the fourth cycle of rice chemotherapy.. Prior to admission- Patient's appetite has been fair. No skin changes. No changes in cognition. Has loss of hair. No change in bowel or urine pattern. No new joint pains. Today-sitting up. Has slight nausea. Did tolerate some diet. No pain. No fever no chills. Review of systems: Was done for constitutional, cardiovascular, GI, pulmonary. relevant finding as above Active Medications Amitriptyline HCl (Elavil) 25 mg PO [facility] Last Admin: 04/07/19 19:41 Dose: 25 mg Documented by: Ascorbic Acid (Vitamin C) 500 mg PO DAILY [facility] Last Admin: 04/07/19 09:06 Dose: 500 mg Documented by: Atorvastatin Calcium (Lipitor) 20 mg PO [facility] Last Admin: 04/07/19 19:42 Dose: 20 mg Documented by: Calcium Carbonate (Oscal 500+D) 1 each PO BID [facility] Last Admin: 04/07/19 19:41 Dose: 1 each Documented by: Clonazepam (Klonopin) 0.5 mg PO BID PRN PRN Reason: Anxiety Cyclobenzaprine HCl (Flexeril) 10 mg PO TID PRN PRN Reason: Muscle Spasm Dexamethasone Sodium Phosphate (Decadron) 10 mg IV Q24H [facility] Stop: 04/08/19 16:01 Last Admin: 04/07/19 12:41 Dose: 10 mg Documented by: Famotidine (Pepcid) 20 mg IV Q24H [facility] Stop: 04/08/19 16:01 Last Admin: 04/07/19 12:45 Dose: 20 mg Documented by: Sodium Chloride (Saline 0.9%) 1,000 mls @ 125 mls/hr IV .Q8H [facility] Last Admin: 04/07/19 15:54 Dose: 125 mls/hr Documented by: Ondansetron HCl 16 mg/ Sodium (Chloride) 58 mls @ 232 mls/hr IVPB Q24H [facility] Stop: 04/08/19 16:14 Last Admin: 04/07/19 12:41 Dose: 232 mls/hr Documented by: Etoposide 160 mg/ Sodium (Chloride) 508 mls @ 508 mls/hr IV Q24H [facility] Stop: 04/08/19 16:59 Last Admin: 04/07/19 13:21 Dose: 508 mls/hr Documented by: Ifosfamide 8,400 mg/ Sodium (Chloride) 1,168 mls @ 48.667 mls/hr IV ONCE ONE Stop: 04/08/19 15:59 Last Admin: 04/07/19 15:37 Dose: 48.667 mls/hr Documented by: [place] 8,400 mg/ Sodium (Chloride) 584 mls @ 24.333 mls/hr IV ONCE ONE Stop: 04/08/19 15:59 Last Admin: 04/07/19 15:47 Dose: 24.333 mls/hr Documented by: Loratadine (Claritin) 10 mg PO DAILY PRN PRN Reason: Allergy Symptoms Metoprolol Tartrate (Lopressor) 25 mg PO BID [facility] Last Admin: 04/07/19 19:41 Dose: 25 mg Documented by: Non-Formulary Medication (Vitamin C/Biotin [Hair, Skin And Nails]) 1 tab PO DAILY [facility] Last Admin: 04/07/19 09:06 Dose: Not Given Documented by: Ondansetron HCl (Zofran) 4 mg IVP Q6H PRN PRN Reason: Nausea Oxycodone/Acetaminophen (Percocet 10-325) 1 each PO QID PRN PRN Reason: Pain Pantoprazole Sodium (Protonix) 40 mg PO BID PRN PRN Reason: Heartburn Polyethylene Glycol (Miralax) 17 gm PO DAILY PRN PRN Reason: Constipation Sertraline HCl (Zoloft) 100 mg PO DAILY [facility] Last Admin: 04/07/19 09:05 Dose: 100 mg Documented by: Sertraline HCl (Zoloft) 50 mg PO DAILY [facility] Last Admin: 04/07/19 09:06 Dose: 50 mg Documented by: Trazodone HCl (Desyrel) 50 mg PO HS [facility] Last Admin: 04/07/19 19:41 Dose: 50 mg Documented by: Vitamin E (Vitamin E) 400 unit PO DAILY [facility] Last Admin: 04/07/19 09:09 Dose: Not Given Documented by: Physical examination: VITAL SIGNS: 98.1, 65, 16, 123/59, 100% on room air GENERAL: Sitting on bed, comfortable EYES: Pupils equal. Conjunctiva pale. HEENT: External appearance of nose and ears normal, oral cavity normal. Loss of scalp hair NECK: JVD not raised; masses not palpable. HEART: First and second heart sounds are normal; no edema. LUNGS: Respiratory rate normal; decreased breath sounds. ABDOMEN: Soft, non- tenderness, liver spleen not palpable, no masses palpable. PSYCH: Alert and oriented x3; mood and affect normal NEUROLOGICAL: Cranial nerves grossly intact, power and sensation grossly intact INVESTIGATIONS, reviewed in the clinical context: White count 4.4 hemoglobin 7.4. Lives 184 potassium 4.3 creatinine 1.08 Previous treatment White count 4.7 hemoglobin 8.5 platelets 176 potassium 4.7 bun 18 creatinine 1.09 Assessment: -High-grade B-cell Non-Hodgkin's lymphoma for -fourth cycle RICE chemotherapy -Hepatitis C -Idiopathic Cardiomyopathy EF 35-40% -Essential hypertension -Hyperlipidemia -Normocytic anemia likely from chemotherapy -Chronic nicotine dependence patient cigarette smoker Plan: Care was discussed with the patient. Questions were answered. Patient tolerating the treatment well. Continue the same. Thank you Dr. Gutiérrez
[2019-04-08] MEDS: SODIUM CHLORIDE 0.9% 1,000 ML IV SCH ×2 (08:03→17:51)
[2019-04-08] MEDS: SERTRALINE 50 MG TAB PO SCH (08:06)
[2019-04-08] MEDS: CALCIUM CARB-VIT D 500MG-200UN 1 EACH TAB PO SCH ×2 (08:06→20:55)
[2019-04-08] MEDS: ASCORBIC ACID 500 MG TAB PO SCH (08:06)
[2019-04-08] MEDS: NON FORMULARY DRUG (Vitamin C/Biotin [Hair, Skin And Nails] 1 TAB) PO SCH (08:06)
[2019-04-08] MEDS: SERTRALINE 100 MG TAB PO SCH (08:06)
[2019-04-08] MEDS: METOPROLOL TARTRATE 25 MG TAB PO SCH ×2 (08:06→20:55)
[2019-04-08] MEDS: VITAMIN E (DL,TOCOPHERYL ACET) 400 UNIT CAP PO SCH (08:07)
[2019-04-08 08:17] LABS: Anisocytosis Moderate; Basophils % (A) 1 %; Eosinophils % (A) 1 %; HCT 22.9 % (34.0-46.0); HGB 7.3 gm/dL (11.4-16.0); Hypochromasia Slight; Lymphocytes # (A) 0.8 k/uL (1.0-4.8); Lymphocytes % (A) 19 %; MCH 34.1 pg (25.0-35.0); MCHC 31.9 g/dL (31.0-37.0); MCV 106.9 fL (80.0-100.0); Macrocytosis Marked; Mean Platelet Volume 8.3; Monocytes # (A) 0.3 k/uL (0-1.0); Monocytes % (A) 6 %; Neutrophils % (A) 72 %; Platelet Count 189 k/uL (150-450); RBC 2.15 m/uL (3.80-5.40); RDW 20.2 % (11.5-15.5); WBC 4.2 k/uL (3.8-10.6)
[2019-04-08 08:34] LABS: Albumin 3.5 g/dL (3.5-5.0); Calcium 8.5 mg/dL (8.4-10.2); Phosphorus 2.7 mg/dL (2.5-4.5); Potassium 4.1 mmol/L (3.5-5.1); Total Bilirubin 0.3 mg/dL (0.2-1.3); Total Protein 6.5 g/dL (6.3-8.2); Uric Acid 2.6 mg/dL (3.7-7.4)
[2019-04-08] MEDS: SALT AND SODA MOUTHWASH 1,000 ML PO SCH ×4 (09:20→20:55)
[2019-04-08 09:21] LABS: Anisocytosis (M) Present; Poikilocytosis (M) Present; Tear Drop Cells Present
--- NOTE | 2019-04-08 14:00 | P.PN ---
Subjective Progress Note Date: 04/08/19 Principal diagnosis: EDGARDO FARMER for DLBC NHL In f/u pt denies any c/o on a 14 point ROS, she is ambulating and up ad loreta, she eats many small meals in a day rather then 3 large meals so this is causing her to feel bloated and uncomfortable. She had a BM today. Objective - Vital Signs Vital signs: Vital Signs Temp 98 F 04/08/19 12:00 Pulse 74 04/08/19 12:00 Resp 16 04/08/19 12:00 BP 115/62 04/08/19 12:00 Pulse Ox 98 04/08/19 12:00 Intake & Output 04/07/19 04/08/19 04/08/19 18:59 06:59 18:59 Intake Total 1708 3214 Balance 1708 3214 Weight 60 kg Intake: Intake, IV Titration 1708 1614 Amount Etoposide 160 mg In 508 Sodium Chloride 0.9% ( Dehp Hugh 500 ml @ 508 mls /hr IV Q24H [facility] Rx#: [id number] Ifosfamide 8,400 mg In 576 Sodium Chloride 0.9% 1, 000 ml @ 48.667 mls/hr IV ONCE ONE Rx#:[id number] [place] 8,400 mg In Sodium 288 Chloride 0.9% 500 ml 500 ml @ 24.333 mls/hr IV ONCE ONE Rx#:[id number] Sodium Chloride 0.9% 1, 1200 750 000 ml @ 125 mls/hr IV . Q8H [facility] Rx#:[id number] Oral 1600 Other: Voiding Method Toilet Toilet # Voids 6 3 - Constitutional General appearance: Present: average body habitus, cooperative, no acute distress - EENT Eyes: Present: anicteric sclerae, edentulous, EOMI ENT: Present: hearing grossly normal, normal oropharynx - Respiratory Respiratory: bilateral: CTA - Cardiovascular Rhythm: regular Heart sounds: normal: S1, S2 Abnormal Heart Sounds: Absent: systolic murmur, diastolic murmur, rub, S3 Gallop, S4 Gallop, click, other - Peripheral edema leg Peripheral Edema: bilateral: None - Gastrointestinal General gastrointestinal: Present: normal bowel sounds, soft - Integumentary Integumentary: Present: normal turgor, pale - Neurologic Neurologic: Present: CNII-XII intact - Musculoskeletal Musculoskeletal: Present: strength equal bilaterally - Psychiatric Psychiatric: Present: A&O x's 3, appropriate affect, intact judgment & insight - Labs CBC & Chem 7: 04/08/19 07:46 04/08/19 07:46 Labs: Abnormal Lab Results - Last 24 Hours (Table) 04/08/19 04/08/19 Range/Units 07:46 07:46 RBC 2.15 L (3.80-5.40) m/uL Hgb 7.3 L (11.4-16.0) gm/dL Hct 22.9 L (34.0-46.0) % MCV 106.9 H (80.0-100.0) fL RDW 20.2 H (11.5-15.5) % Lymphocytes # 0.8 L (1.0-4.8) k/uL Macrocytosis Marked A Chloride 111 H (98-107) mmol/L Uric Acid 2.6 L (3.7-7.4) mg/dL Assessment and Plan (1) NHL (non-Hodgkin's lymphoma) Narrative/Plan: Day # 2 RICE regimen chemotherapy round #4 given during this admission- completing CIVI later this evening Supportive meds ordered Daily labs Daily F/U IM following Ambulation scheduled daily Diet as tolerated Conditional DC for AM F/U appt on Thursday Current Visit: No Status: Chronic Priority: High Code(s): C85.90 - NON- HODGKIN LYMPHOMA, UNSPECIFIED, UNSPECIFIED SITE SNOMED Code(s): 804108373 Plan: Internal medicine following for medical management
[2019-04-08] MEDS: ONDANSETRON 16 MG in SODIUM CHLORIDE 0.9% 50 ML IVPB SCH (17:50)
[2019-04-08] MEDS: DEXAMETHASONE SOD PHOSPHATE 10 MG/ML 1 ML VIAL IV SCH (17:53)
[2019-04-08] MEDS: FAMOTIDINE 20 MG/2 ML VIAL IV SCH (17:53)
[2019-04-08] MEDS: ETOPOSIDE IV SCH (18:28)
[2019-04-08] MEDS: SODIUM CHLORIDE 0.9% IV SCH (18:28)
--- NOTE | 2019-04-08 19:17 | P.DS ---
Providers Date of admission: 04/06/19 08:08 Expected date of discharge: 04/09/19 Attending physician: Parish Mims Consults: 04/06/19 11:13 Consult Physician Routine Consulting Provider: Rohan Leung Consult Reason/Comments: Medical Mgmt Do you want consulting provider notified?: Yes Primary care physician: Frank Weller - Discharge Diagnosis(es) (1) NHL (non-Hodgkin's lymphoma) Current Visit: No Status: Chronic Priority: High Hospital Course: Admitted for cycle #4 CIVI chemotherapy with R-ICE (rituxan added this cycle as Hep C managed). Pt did well, no unanticipated SE or complications Assessment: WDWN,NAD, A&Ox4, no oral thrush or lesion, BBS CTA, resp unlabored, S1S2, BS+, abd soft, non-tender, no swelling, rash, ambulating ad loreta, no gross focal or motor neuro deficits Health Concerns: none Pertinent Studies: none Procedures: none Patient Condition at Discharge: Stable Plan - Discharge Summary Discharge Rx Participant: No New Discharge Prescriptions: No Action Sertraline [Zoloft] 100 mg PO DAILY Ascorbic Acid [Vitamin C] 500 mg PO DAILY Metoprolol Tartrate [Lopressor] 25 mg PO BID Biotin 5 mg PO DAILY clonazePAM [KlonoPIN] 0.5 mg PO BID PRN PRN Reason: Anxiety Simvastatin [Zocor] 40 mg PO HS Lisinopril [Zestril] 2.5 mg PO DAILY Spironolactone 25 mg PO DAILY Calcium Carbonate/Vitamin D3 [Calcium 600-Vit D3 500 Softgel] 1 cap PO BID Ondansetron HCl [Zofran] 4 mg PO Q4H PRN PRN Reason: nausea Fluticasone Nasal [place] [Flonase Nasal [place]] 2 sprays EA NOSTRIL HS PRN PRN Reason: Allergy Symptoms Psyllium Husk [Metamucil] 0.4 gm PO DAILY PRN PRN Reason: Constipation Vitamin E (Dl,Tocopheryl Acet) [Vitamin E] 400 unit PO DAILY traZODone HCL 50 mg PO HS Omeprazole 20 mg PO BID PRN PRN Reason: Heartburn Cyclobenzaprine [Flexeril] 10 mg PO TID PRN PRN Reason: Muscle Spasm Amitriptyline HCl [Elavil] 25 mg PO HS Magnesium Citrate 230mg 230 mg PO DAILY PRN PRN Reason: Muscle Pain Sertraline HCl [Zoloft] 50 mg PO DAILY Cetirizine HCl [Zyrtec] 10 mg PO DAILY PRN PRN Reason: Allergy Symptoms oxyCODONE-APAP 10-325MG [Percocet 10-325 mg] 1 tab PO QID PRN PRN Reason: Pain Vitamin C/Biotin [Hair, Skin and Nails] 1 tab PO DAILY Prochlorperazine [Compazine] 10 mg PO Q6H PRN #50 tab PRN Reason: Nausea Polyethylene Glycol 3350 [Miralax] 17 gm PO DAILY PRN #1 box PRN Reason: Constipation Sennosides [Senna] 8.6 mg PO BID PRN #100 tablet PRN Reason: Constipation Discharge Medication List Sertraline [Zoloft] 100 mg PO DAILY 06/05/14 [History] Ascorbic Acid [Vitamin C] 500 mg PO DAILY 06/07/14 [History] Metoprolol Tartrate [Lopressor] 25 mg PO BID 10/08/15 [History] Biotin 5 mg PO DAILY 10/25/18 [History] Simvastatin [Zocor] 40 mg PO HS 10/25/18 [History] clonazePAM [KlonoPIN] 0.5 mg PO BID PRN 10/25/18 [History] Calcium Carbonate/Vitamin D3 [Calcium 600-Vit D3 500 Softgel] 1 cap PO BID 12/01/18 [History] Lisinopril [Zestril] 2.5 mg PO DAILY 12/01/18 [History] Spironolactone 25 mg PO DAILY 12/01/18 [History] Fluticasone Nasal [place] [Flonase Nasal [place]] 2 sprays EA NOSTRIL HS PRN 12/15/18 [History] Ondansetron HCl [Zofran] 4 mg PO Q4H PRN 12/15/18 [History] Psyllium Husk [Metamucil] 0.4 gm PO DAILY PRN 12/15/18 [History] Amitriptyline HCl [Elavil] 25 mg PO HS 01/24/19 [History] Cetirizine HCl [Zyrtec] 10 mg PO DAILY PRN 01/24/19 [History] Cyclobenzaprine [Flexeril] 10 mg PO TID PRN 01/24/19 [History] Magnesium Citrate 230mg 230 mg PO DAILY PRN 01/24/19 [History] Omeprazole 20 mg PO BID PRN 01/24/19 [History] Sertraline HCl [Zoloft] 50 mg PO DAILY 01/24/19 [History] Vitamin E (Dl,Tocopheryl Acet) [Vitamin E] 400 unit PO DAILY 01/24/19 [History] traZODone HCL 50 mg PO HS 01/24/19 [History] Vitamin C/Biotin [Hair, Skin and Nails] 1 tab PO DAILY 03/14/19 [History] oxyCODONE-APAP 10-325MG [Percocet 10-325 mg] 1 tab PO QID PRN 03/14/19 [History] Polyethylene Glycol 3350 [Miralax] 17 gm PO DAILY PRN #1 box 03/17/19 [Rx] Prochlorperazine [Compazine] 10 mg PO Q6H PRN #50 tab 03/17/19 [Rx] Sennosides [Senna] 8.6 mg PO BID PRN #100 tablet 03/17/19 [Rx] Follow up Appointment(s)/Referral(s): Virgilio Gutiérrez MD [STAFF PHYSICIAN] - 04/11/19 1:00 pm [facility], [NON-STAFF] - 1 Week Activity/Diet/Wound Care/Special Instructions: Activity as tolerated Diet as tolerated GCSF in office on Thursday Handwashing Avoid ill contacts Temp monitoring, call Doctor with temp 100.5F [place] fluid intake Discharge Disposition: HOME SELF-CARE Pending Studies Pending Results: none
--- NOTE | 2019-04-08 20:18 | P.PN ---
Progress Note - Text Progress Note Date: 04/08/19 - Chief Complaint Chemotherapy treatment Interval history: This is a very pleasant 63-year-old patient of Dr. Weller. Rather extensive medical history. Patient initially diagnosed as a lump in the right groin in 2016 had a biopsy done at [facility] and had a diagnosis of non- Hodgkin's lymphoma. Decision was made to follow with observation. She did not follow-up for the same. She had a possible breast lump ultrasound of the breast was negative. In October 2018 she had new abdominal pain and computed tomography scan showed a mass in the right lower quadrant. Along with adenopathy. She underwent resection of the right ovary and right fallopian tube and pelvic lymph node biopsy was carried out. 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 PET scan that showed multiple areas of uptake including the left axilla. PET scan showed areas of multiple uptake including left axilla, mediastinum, left breast, multiple areas in the retro-peritoneal.. She was hepatitis C positive. 2-D echo showed EF of 45%. She also had a cardiac catheterization in October 2018 came back to be negative. Patient was started with chemotherapy. High-grade B-cell non-Hodgkin's lymphoma. He recently told that her hepatitis C was become negative. Admitted for the fourth cycle of rice chemotherapy.. Prior to admission- Patient's appetite has been fair. No skin changes. No changes in cognition. Has loss of hair. No change in bowel or urine pattern. No new joint pains. Today-sitting up. Nausea better. Tolerating a diet. Review of systems: Was done for constitutional, cardiovascular, GI, pulmonary. relevant finding as above Active Medications Amitriptyline HCl (Elavil) 25 mg PO [facility] Last Admin: 04/07/19 19:41 Dose: 25 mg Documented by: Ascorbic Acid (Vitamin C) 500 mg PO DAILY [facility] Last Admin: 04/08/19 08:06 Dose: 500 mg Documented by: Atorvastatin Calcium (Lipitor) 20 mg PO [facility] Last Admin: 04/07/19 19:42 Dose: 20 mg Documented by: Calcium Carbonate (Oscal 500+D) 1 each PO BID [facility] Last Admin: 04/08/19 08:06 Dose: 1 each Documented by: Clonazepam (Klonopin) 0.5 mg PO BID PRN PRN Reason: Anxiety Cyclobenzaprine HCl (Flexeril) 10 mg PO TID PRN PRN Reason: Muscle Spasm Sodium Chloride (Saline 0.9%) 1,000 mls @ 125 mls/hr IV .Q8H [facility] Last Admin: 04/08/19 17:51 Dose: 125 mls/hr Documented by: Loratadine (Claritin) 10 mg PO DAILY PRN PRN Reason: Allergy Symptoms Metoprolol Tartrate (Lopressor) 25 mg PO BID [facility] Last Admin: 04/08/19 08:06 Dose: 25 mg Documented by: Non-Formulary Medication (Vitamin C/Biotin [Hair, Skin And Nails]) 1 tab PO DAILY [facility] Last Admin: 04/08/19 08:06 Dose: Not Given Documented by: Ondansetron HCl (Zofran) 4 mg IVP Q6H PRN PRN Reason: Nausea Oxycodone/Acetaminophen (Percocet 10-325) 1 each PO QID PRN PRN Reason: Pain Pantoprazole Sodium (Protonix) 40 mg PO BID PRN PRN Reason: Heartburn Polyethylene Glycol (Miralax) 17 gm PO DAILY PRN PRN Reason: Constipation Sertraline HCl (Zoloft) 100 mg PO DAILY [facility] Last Admin: 04/08/19 08:06 Dose: 100 mg Documented by: Sertraline HCl (Zoloft) 50 mg PO DAILY [facility] Last Admin: 04/08/19 08:06 Dose: 50 mg Documented by: Sodium Bicarbonate () 5 ml PO Q4HR [facility] Last Admin: 04/08/19 16:31 Dose: 5 ml Documented by: Trazodone HCl (Desyrel) 50 mg PO HS [facility] Last Admin: 04/07/19 19:41 Dose: 50 mg Documented by: Vitamin E (Vitamin E) 400 unit PO DAILY [facility] Last Admin: 04/08/19 08:07 Dose: Not Given Documented by: Physical examination: VITAL SIGNS: 98.7, 79, 16, 113/61, 98% on room air GENERAL: Sitting on bed, comfortable EYES: Pupils equal. Conjunctiva pale. HEENT: External appearance of nose and ears normal, oral cavity normal. Loss of scalp hair NECK: JVD not raised; masses not palpable. HEART: First and second heart sounds are normal; no edema. LUNGS: Respiratory rate normal; decreased breath sounds. ABDOMEN: Soft, non- tenderness, liver spleen not palpable, no masses palpable. PSYCH: Alert and oriented x3; mood and affect normal NEUROLOGICAL: Cranial nerves grossly intact, power and sensation grossly intact INVESTIGATIONS, reviewed in the clinical context: White count 4.2 hemoglobin 7.3 platelets 189 potassium 4.1 creatinine 0.98 Previous treatment White count 4.7 hemoglobin 8.5 platelets 176 potassium 4.7 bun 18 creatinine 1.09 Assessment: -High-grade B-cell Non-Hodgkin's lymphoma for -fourth cycle RICE chemotherapy -Hepatitis C -Idiopathic Cardiomyopathy EF 35-40% -Essential hypertension -Hyperlipidemia -Normocytic anemia likely from chemotherapy -Chronic nicotine dependence patient cigarette smoker Plan: Tolerating chemotherapy well. Continue current medication treatment plan. Follow. Thank you Dr. Gutiérrez
[2019-04-08] MEDS: ATORVASTATIN 20 MG TAB PO SCH (20:54)
[2019-04-08] MEDS: traZODone HCL 50 MG TAB PO SCH (20:55)
[2019-04-08] MEDS: AMITRIPTYLINE HCL 25 MG TAB PO SCH (20:58)
[2019-04-09] MEDS: SALT AND SODA MOUTHWASH 1,000 ML PO SCH ×4 (00:54→12:54)
[2019-04-09] MEDS: SODIUM CHLORIDE 0.9% 1,000 ML IV SCH ×3 (00:54→09:01)
[2019-04-09 04:50] VITALS: TEMP 97.5
[2019-04-09 08:07] LABS: Anisocytosis Slight; Basophils % (A) 1 %; Eosinophils % (A) 0 %; HCT 24.7 % (34.0-46.0); HGB 7.9 gm/dL (11.4-16.0); Hypochromasia Moderate; Lymphocytes # (A) 0.5 k/uL (1.0-4.8); Lymphocytes % (A) 11 %; MCH 35.2 pg (25.0-35.0); MCV 110.3 fL (80.0-100.0); Macrocytosis Marked; Mean Platelet Volume 7.9; Monocytes # (A) 0.2 k/uL (0-1.0); Monocytes % (A) 4 %; Neutrophils # (A) 3.5 k/uL (1.3-7.7); Neutrophils % (A) 82 %; Platelet Count 215 k/uL (150-450); RBC 2.24 m/uL (3.80-5.40); RDW 19.8 % (11.5-15.5); WBC 4.3 k/uL (3.8-10.6)
[2019-04-09 08:13] LABS: Albumin 3.5 g/dL (3.5-5.0); Calcium 8.8 mg/dL (8.4-10.2); Phosphorus 3.3 mg/dL (2.5-4.5); Potassium 4.2 mmol/L (3.5-5.1); Total Bilirubin 0.6 mg/dL (0.2-1.3); Total Protein 6.7 g/dL (6.3-8.2); Uric Acid 2.7 mg/dL (3.7-7.4)
[2019-04-09] MEDS: SERTRALINE 50 MG TAB PO SCH (09:02)
[2019-04-09] MEDS: CALCIUM CARB-VIT D 500MG-200UN 1 EACH TAB PO SCH (09:02)
[2019-04-09] MEDS: METOPROLOL TARTRATE 25 MG TAB PO SCH (09:02)
[2019-04-09] MEDS: SERTRALINE 100 MG TAB PO SCH (09:02)
[2019-04-09] MEDS: VITAMIN E (DL,TOCOPHERYL ACET) 400 UNIT CAP PO SCH ×2 (09:02→09:05)
[2019-04-09] MEDS: ASCORBIC ACID 500 MG TAB PO SCH (09:02)
[2019-04-09] MEDS: NON FORMULARY DRUG (Vitamin C/Biotin [Hair, Skin And Nails] 1 TAB) PO SCH (09:03)
[2019-04-09 09:50] VITALS: BP 134/63; PULSE 70; RESP 18
--- NOTE | 2019-04-09 20:06 | P.PN ---
Progress Note - Text Progress Note Date: 04/09/19 - Chief Complaint Chemotherapy treatment Interval history: This is a very pleasant 63-year-old patient of Dr. Weller. Rather extensive medical history. Patient initially diagnosed as a lump in the right groin in 2016 had a biopsy done at [facility] and had a diagnosis of non- Hodgkin's lymphoma. Decision was made to follow with observation. She did not follow-up for the same. She had a possible breast lump ultrasound of the breast was negative. In October 2018 she had new abdominal pain and computed tomography scan showed a mass in the right lower quadrant. Along with adenopathy. She underwent resection of the right ovary and right fallopian tube and pelvic lymph node biopsy was carried out. 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 PET scan that showed multiple areas of uptake including the left axilla. PET scan showed areas of multiple uptake including left axilla, mediastinum, left breast, multiple areas in the retro-peritoneal.. She was hepatitis C positive. 2-D echo showed EF of 45%. She also had a cardiac catheterization in October 2018 came back to be negative. Patient was started with chemotherapy. High-grade B-cell non-Hodgkin's lymphoma. He recently told that her hepatitis C was become negative. Admitted for the fourth cycle of rice chemotherapy.. Prior to admission- Patient's appetite has been fair. No skin changes. No changes in cognition. Has loss of hair. No change in bowel or urine pattern. No new joint pains. Today-Comfortable. No new issues. Did have a bowel movement. Finished chemotherapy last night. Review of systems: Was done for constitutional, cardiovascular, GI, pulmonary. relevant finding as above Current medications reviewed in today's electronic records Physical examination: VITAL SIGNS: 97.4, 74, 16, 107/59, 99% GENERAL: Sitting up,, comfortable EYES: Pupils equal. Conjunctiva pale. HEENT: External appearance of nose and ears normal, oral cavity normal. Loss of scalp hair NECK: JVD not raised; masses not palpable. HEART: First and second heart sounds are normal; no edema. LUNGS: Respiratory rate normal; decreased breath sounds. ABDOMEN: Soft, non- tenderness, liver spleen not palpable, no masses palpable. PSYCH: Alert and oriented x3; mood and affect normal INVESTIGATIONS, reviewed in the clinical context: White count 4.3 hemoglobin 7.9 potassium 4.2 creatinine 0.94 Previous treatment White count 4.7 hemoglobin 8.5 platelets 176 potassium 4.7 bun 18 creatinine 1.09 Assessment: -High-grade B-cell Non-Hodgkin's lymphoma for -fourth cycle RICE chemotherapy -Hepatitis C -Idiopathic Cardiomyopathy EF 35-40% -Essential hypertension -Hyperlipidemia -Normocytic anemia likely from chemotherapy -Chronic nicotine dependence patient cigarette smoker Plan: Stable. Follow with PCP upon discharge. Discussed with patient. Thank you Dr. Gutiérrez
== END 2019-04-09 14:36 | disposition home health service (06) | DRG 847 ==
LOC: 5NMEDONC 08:08
PROVIDERS: ADMIT Internal Medicine Hematology & Oncology; ATTEND Internal Medicine Hematology & Oncology
DX: Z51.11 Encounter for antineoplastic chemotherapy (principal); C85.13 Unspecified B-cell lymphoma, intra-abdominal lymph nodes; I42.9 Cardiomyopathy, unspecified; D64.81 Anemia due to antineoplastic chemotherapy; B19.20 Unspecified viral hepatitis C without hepatic coma; I48.91 Unspecified atrial fibrillation; I10 Essential (primary) hypertension; E78.5 Hyperlipidemia, unspecified; M51.37 Other intervertebral disc degeneration, lumbosacral region; G89.29 Other chronic pain; M54.2 Cervicalgia; G43.909 Migraine, unspecified, not intractable, without status migrainosus; F17.210 Nicotine dependence, cigarettes, uncomplicated; K59.00 Constipation, unspecified; F41.9 Anxiety disorder, unspecified; M62.838 Other muscle spasm; Z71.3 Dietary counseling and surveillance; Z79.899 Other long term (current) drug therapy; Z87.01 Personal history of pneumonia (recurrent); Z87.39 Personal history of other diseases of the musculoskeletal system and connective tissue; Z87.448 Personal history of other diseases of urinary system; Z98.890 Other specified postprocedural states; Z87.42 Personal history of other diseases of the female genital tract; Z86.69 Personal history of other diseases of the nervous system and sense organs; Z88.6 Allergy status to analgesic agent; Z82.5 Family history of asthma and other chronic lower respiratory diseases; Z82.49 Family history of ischemic heart disease and other diseases of the circulatory system; Z82.0 Family history of epilepsy and other diseases of the nervous system
CPT/HCPCS: 80053; 82607; 83921; 84100; 84550; 85025

== ENCOUNTER → 2019-04-25 | Outpatient (CLI) | payer MEDICARE, OTHER ==
[2019-04-26 02:03] LABS: ALT 19 U/L (8-44); AST 21 U/L (13-35); Albumin/Globulin Ratio 1.87 (1.60-3.17); Alkaline Phosphatase 109 U/L (41-126); Bilirubin, Conjugated <0.20 mg/dL (0.20-0.40); Globulin 2.3 g/dL (1.6-3.3); Total Bilirubin 0.2 mg/dL (0.3-1.2); Total Protein 6.6 g/dL (6.2-8.2)
== END | disposition home or self-care (01) ==
LOC: LABWHC1 15:14
PROVIDERS: ATTEND Internal Medicine Infectious Disease
DX: B19.20 Unspecified viral hepatitis C without hepatic coma (principal); Z88.6 Allergy status to analgesic agent
CPT/HCPCS: 36415; 80076; 87522

== ENCOUNTER → 2019-05-12 | Outpatient (CLI) | payer MEDICARE, OTHER ==
--- NOTE | 2019-05-12 15:07 | CT ---
EXAMINATION TYPE: CT ChestAbdPelvis w con DATE OF EXAM: 05/12/2019 COMPARISON: PET CT 03/04/2019 HISTORY: 63-year-old female Follow up for non-Hodgkin's lymphoma TECHNIQUE: Contiguous axial scanning of the chest, abdomen, and pelvis performed with IV Contrast, pa tient injected with 80 mL of Isovue 300. Delayed images through the kidneys were obtained. Coronal/sa gittal reconstructions performed. CT DLP: 502.7 mGycm Automated exposure control for dose reduction was used. FINDINGS: CHEST: Right anterior chest wall injection port with catheter tip at the mid SVC level. Heart normal size without pericardial effusion. Aorta with mild to moderate atherosclerotic arch calcifications and conventional arch vessel branchin g anatomy. Calcified right upper paratracheal lymph node. Calcified left hilar and bronchial lymph nodes. There is some increasing surrounding soft tissue density, refer to axial image 28. No other progressive lym phadenopathy by CT size criteria. 4 mm subpleural pulmonary nodule posterior left apex is unchanged. Calcified granuloma left lower lob e is unchanged. No consolidation or pleural effusion. ABDOMEN: No focal liver lesion or biliary ductal dilatation. Portal venous system is patent. Numerous small gallstones are present. Gallbladder is hydropic at 4.8 cm wide. No surrounding inflamm ation. Small ventral abdominal wall incisional hernias along the supraumbilical region measuring up to 2.47 m wide. Left mid mesenteric mass measures 1.7 cm, unchanged from 03/04/2019. Adrenal glands, kidneys, and pancreas appear within normal limits. Spleen borderline in size at 13.5 cm. Tiny calcified granulomas are present within. No dilated small bowel or free air. Moderate scattered stool burden. Sigmoid diverticulosis without i nflammatory change. PELVIS: Right external iliac chain lymphadenopathy measuring up to 1.2 cm may be slightly smaller from 1.4 cm , previously. Bladder nondistended. Uterus is tilted towards the right with small amount of cul-de-sac free fluid, unchanged from prior. Left ovary is visualized. Right ovary not clearly delineated. BONES: Degenerative change of the hips superior endplate deformity of L3 is unchanged. No osseous destructiv e process. IMPRESSION: 1. PRIOR GRANULOMATOUS DISEASE. THERE IS NEW SOFT TISSUE THICKENING SURROUNDING THE LEFT INFRAHILAR C ALCIFIED LYMPH NODE. SHORT INTERVAL FOLLOW-UP RECOMMENDED. 2. THE SIGNIFICANCE OF THE ABOVE IS UNCLEAR AT THIS TIME THE REMAINING RESIDUAL LEFT MID MESENTERI C (1.7 CM) AND RIGHT EXTRA ILIAC CHAIN (1.2 CM) RENETTA ENLARGEMENT IS STABLE TO SLIGHTLY SMALLER. 3. NO OTHER FINDINGS TO SUGGEST DISEASE PROGRESSION. 4. CHOLELITHIASIS WITH HYDROPIC GALLBLADDER. NO SURROUNDING INFLAMMATION AT THIS TIME. IF RIGHT UPPER QUADRANT PAIN OR CONCERN FOR EARLY ACUTE CHOLECYSTITIS, FOLLOW-UP ULTRASOUND OR HIDA SCAN.
== END | disposition home or self-care (01) ==
LOC: RADCTMAIN 12:13
PROVIDERS: ATTEND Internal Medicine Hematology & Oncology
DX: K80.20 Calculus of gallbladder without cholecystitis without obstruction (principal); C85.98 Non-Hodgkin lymphoma, unspecified, lymph nodes of multiple sites
CPT/HCPCS: 82565; 84520; 71260; 74177; 36415; Q9967

== ENCOUNTER 2019-05-16 07:52 | Inpatient (IN) | payer MEDICARE, OTHER ==
[2019-05-16] MEDS ORDERED: ONDANSETRON 4 MG/2 ML VIAL IVP PRN (08:00)
[2019-05-16] MEDS: SODIUM CHLORIDE 0.9% 1,000 ML IV SCH ×3 (09:29→23:36)
[2019-05-16 09:59] LABS: Basophils # (A) 0.1 k/uL (0-0.2); Basophils % (A) 1 %; Eosinophils # (A) 0.3 k/uL (0-0.7); Eosinophils % (A) 6 %; Hypochromasia Moderate; Lymphocytes # (A) 0.8 k/uL (1.0-4.8); Lymphocytes % (A) 18 %; MCH 35.2 pg (25.0-35.0); MCHC 32.2 g/dL (31.0-37.0); MCV 109.2 fL (80.0-100.0); Macrocytosis Marked; Mean Platelet Volume 7.5; Monocytes # (A) 0.3 k/uL (0-1.0); Monocytes % (A) 7 %; Neutrophils # (A) 2.9 k/uL (1.3-7.7); Neutrophils % (A) 65 %; Platelet Count 145 k/uL (150-450); Poikilocytosis Slight; RBC 3.11 m/uL (3.80-5.40); RDW 15.9 % (11.5-15.5); WBC 4.4 k/uL (3.8-10.6)
[2019-05-16 10:31] LABS: Albumin 4.2 g/dL (3.5-5.0); Total Bilirubin 0.2 mg/dL (0.2-1.3); Total Protein 7.6 g/dL (6.3-8.2); Uric Acid 1.4 mg/dL (3.7-7.4)
[2019-05-16 10:45] LABS: Calcium 9.4 mg/dL (8.4-10.2); Phosphorus 3.2 mg/dL (2.5-4.5); Potassium 3.6 mmol/L (3.5-5.1)
--- NOTE | 2019-05-16 11:03 | P.HPIM ---
History of Present Illness H&P Date: 05/16/19 Chief Complaint: CIVI R-ICE for DLBCL Patient admitted for CIVI R-ICE regimen (Hep C managed, rituxan added cycle #4), cycle #5 chemotherapy with a 10% dose reduction in chemo drugs. Treatment for non Hodgkins lymphoma. Denies acute changes in health, appetite is fair, acti vity levels are fair, strength is good, denies fever, mouth pain, trouble swallowing, difficulty in breathing, cough, dizziness, vertigo, palpitations, chest discomfort, rash, bruising, numbness, tingling, abdominal pain, bloating, nausea, vomiting, constipation, diarrhea, dysuria, change appearance of urine, no pain to report. Malignancy History: Initially diagnosed in 2006 at [place], told Non- Hodgkin's lymphoma with lymph nodes above and below the diaphragm. She was seen by Dr. Gonzalez with observation was recommended. However she did not follow-up since 2007 and eventually move to the area, no oncology care since in between. She was asymptomatic so she continued on observation. 10/25 she had c/o new onset RLQ abdominal pain, progressive over 7-[address] AP 10/27/18 showing a mixed density mass in the right lower quadrant, with soft tissue density, felt to be related to phlegmon or abscess. There was some mild right- sided inguinal and retroperitoneal adenopathy that was unchanged. She underwent surgery on 10/28/18 with resection of the right ovary and right fallopian tube as well as pelvic lymph node biopsy. Path showed evidence of high-grade B cell non-Hodgkin lymphoma in the pelvic lymph node, benign ovarian fibroma and atrophic fallopian tube with associated lymphoid tissue with atypical lymphoproliferative process. Double hit/triple hit was ruled out as MYC rearrangement was negative. PET showed multiple areas of uptake including left axilla, mediastinum, left breast, multiple areas in the retroperitoneum, most prominently in the aortocaval region. She was found to be hepatitis C positive and is on antiviral treatment for the same since 2nd cycle of treatment. EF was 45% so, she was started on CEOP, 1st cycle 12/13/18 and is s/p 2 cycles. GCSF was added with C2. PET after C 2 showed improvement, but still persistent uptake in multiple areas, including retropectoral, retroperitoneal, and pelvis. She was switched to ICE, Jan 2019, she has had delays in subsequent cycles due to hematological toxicities. Rituxan was added to cycle 4 when pt HepC managed. She is s/p 4 cycles, admitted for cycle #5. Review of Systems 14 point ROS is negative except as stated in HPI Past Medical History Past Medical History: Atrial Fibrillation, Cancer, Chest Pain / Angina, Eye Disorder, Hyperlipidemia, Hypertension, Liver Disease, Musculoskeletal Disorder, Pneumonia, Renal Disease Additional Past Medical History / Comment(s): 2006 nonhodgkins lymphoma-pt states no treatment needed, 10/2018 reoccurrence nonhodgkins lymphoma-received 2 rounds chemo/pet scan recently showed persistent abnormal uptake in chest/abdomin-pt recieving ICE chemo, abdominal pain/constipation, newly diagnosed hepatitis C-tx with medication and has been told she is cured, DDD, chronic low back pain/cervical pain (sees Dr. Cummins for pain management), migraines, decreased renal function with steroid/nsaid use. History of Any Multi-Drug Resistant Organisms: None Reported Past Surgical History: Heart Catheterization, Orthopedic Surgery Additional Past Surgical History / Comment(s): 2006 R groin lump biopsy at [facility], 10/28/18 Exploratory laparotomy with tubo-ovarian cancer/R salpingo-oophorectomy/removal pelvic lymph nodes, 12/03/18 Port a cath, 12/20/18 cardiac cath-normal/CHIQUIS, 2015 cardiac cath, vaginal polypectomy, R shoulder arthroscopy/rotator cuff repair x2, R knee arthroscopy, ORIF R ankle with plates/screws. Past Anesthesia/Blood Transfusion Reactions: No Reported Reaction Past Psychological History: No Psychological Hx Reported Smoking Status: Current every day smoker Past Alcohol Use History: Occasional Past Drug Use History: None Reported - Past Family History Mother Family Medical History: COPD, Coronary Artery Disease (CAD), Myocardial Infarction ([place]), Seizure Disorder Additional Family Medical History / Comment(s): Mother had a [place] at the age of 76yrs. She from fall/facial injury and aspirated blood. Father Family Medical History: Coronary Artery Disease (CAD), Seizure Disorder Additional Family Medical History / Comment(s): Father had a seizure while driving resulting in a MVA in which he . Medications and Allergies Home Medications Medication Instructions Recorded Confirmed Type Sertraline [Zoloft] 100 mg PO DAILY 06/05/14 04/06/19 History Ascorbic Acid [Vitamin C] 500 mg PO DAILY 06/07/14 04/06/19 History Metoprolol Tartrate [Lopressor] 25 mg PO BID 10/08/15 04/06/19 History Biotin 5 mg PO DAILY 10/25/18 04/06/19 History Simvastatin [Zocor] 40 mg PO HS 10/25/18 04/06/19 History clonazePAM [KlonoPIN] 0.5 mg PO BID PRN 10/25/18 04/06/19 History Calcium Carbonate/Vitamin D3 1 cap PO BID 12/01/18 04/06/19 History [Calcium 600-Vit D3 500 Softgel] Lisinopril [Zestril] 2.5 mg PO DAILY 12/01/18 04/06/19 History Spironolactone 25 mg PO DAILY 12/01/18 04/06/19 History Fluticasone Nasal [place] [Flonase 2 sprays EA NOSTRIL HS PRN 12/15/18 04/06/19 History Nasal [place]] Ondansetron HCl [Zofran] 4 mg PO Q4H PRN 12/15/18 04/06/19 History Psyllium [place] [Metamucil] 0.4 gm PO DAILY PRN 12/15/18 04/06/19 History Amitriptyline HCl [Elavil] 25 mg PO HS 01/24/19 04/06/19 History Cetirizine HCl [Zyrtec] 10 mg PO DAILY PRN 01/24/19 04/06/19 History Cyclobenzaprine [Flexeril] 10 mg PO TID PRN 01/24/19 04/06/19 History Magnesium Citrate 230mg 230 mg PO DAILY PRN 01/24/19 04/06/19 History Omeprazole 20 mg PO BID PRN 01/24/19 04/06/19 History Sertraline HCl [Zoloft] 50 mg PO DAILY 01/24/19 04/06/19 History Vitamin E (Dl,Tocopheryl Acet) 400 unit PO DAILY 01/24/19 04/06/19 History [Vitamin E] traZODone HCL 50 mg PO HS 01/24/19 04/06/19 History Vitamin C/Biotin [Hair, Skin and 1 tab PO DAILY 03/14/19 04/06/19 History Nails] oxyCODONE-APAP 10-325MG [Percocet 1 tab PO QID PRN 03/14/19 04/06/19 History 10-325 mg] Polyethylene Glycol 3350 [Miralax] 17 gm PO DAILY PRN #1 box 03/17/19 04/06/19 Rx Prochlorperazine [Compazine] 10 mg PO Q6H PRN #50 tab 03/17/19 04/06/19 Rx Sennosides [Senna] 8.6 mg PO BID PRN #100 tablet 03/17/19 04/06/19 Rx Allergies Allergy/AdvReac Type Severity Reaction Status Date / Time NSAIDS (Non-Steroidal AdvReac Swelling Verified 04/06/19 10:03 Anti-Inflamma Physical Exam Vitals: Vital Signs Temp Pulse Resp BP Pulse Ox 05/16/19 08:17 98.1 F 75 17 127/58 100 Intake and Output 05/15/19 05/16/19 05/16/19 22:59 06:59 14:59 Other: Weight 62.5 kg - Constitutional General appearance: average body habitus, cooperative, no acute distress - EENT Eyes: anicteric sclerae, edentulous, EOMI ENT: hearing grossly normal, normal oropharynx - Neck Neck: no lymphadenopathy - Respiratory Respiratory: bilateral: CTA - Cardiovascular Rhythm: regular Heart sounds: normal: S1, S2 Abnormal Heart Sounds: no systolic murmur, no diastolic murmur, no rub, no S3 Gallop, no S4 Gallop, no click, no other leg Peripheral Edema: bilateral: None - Gastrointestinal General gastrointestinal: no absent bowel sounds, no decreased bowel sounds, no distended, no hepatomegaly, no hyperactive bowel sounds, normal bowel sounds, no organomegaly, no rigid, no scaphoid, soft, no splenomegaly, no tenderness, no umbilical hernia, no ventral hernia - Integumentary Integumentary: normal, normal turgor - Neurologic Neurologic: CNII-XII intact - Musculoskeletal Musculoskeletal: strength equal bilaterally - Psychiatric Psychiatric: A&O x's 3, appropriate affect, intact judgment & insight Results CBC & Chem 7: 05/16/19 09:30 05/16/19 09:30 Labs: Abnormal Lab Results - Last 24 Hours (Table) 03/09/20 03/09/20 Range/Units 09:30 09:30 RBC 3.11 L (3.80-5.40) m/uL Hgb 11.0 L D (11.4-16.0) gm/dL MCV 109.2 H (80.0-100.0) fL MCH 35.2 H (25.0-35.0) pg RDW 15.9 H (11.5-15.5) % Plt Count 145 L (150-450) k/uL Macrocytosis Marked A Creatinine 1.31 H (0.52-1.04) mg/dL Glucose 137 H (74-99) mg/dL Uric Acid 1.4 L (3.7-7.4) mg/dL Thrombosis Risk Factor Assmnt - DVT/VTE Prophylaxis DVT/VTE Prophylaxis: Pharmacologic Prophylaxis ordered - Choose All That Apply Any of the Below Risk Factors Present?: Yes Other Risk Factors: Yes Each Risk Factor Represents 2 Points: Age 61-74 years, Malignancy Other congenital or acquired thrombophilia - If yes, enter type in comment: No Thrombosis Risk Factor Assessment Total Risk Factor Score: 4 Thrombosis Risk Factor Assessment Level: Moderate Risk Assessment and Plan (1) NHL (non-Hodgkin's lymphoma) Narrative/Plan: Admit for R-ICE, 4 day admission anticipated. Chemo orders reviewed, doses re-checked due to 10% reduction. 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 No acute intervention needed. Daily labs Current Visit: Yes Status: Acute Priority: Low Code(s): D75.89 - OTHER S PECIFIED DISEASES OF BLOOD AND BLOOD-FORMING ORGANS SNOMED Code(s): 11720146 (3) Hepatitis C Narrative/Plan: Completed oral therapy for the same Current Visit: No Status: Chronic Priority: Medium Code(s): B19.20 - UNSPECIFIED VIRAL HEPATITIS C WITHOUT HEPATIC COMA SNOMED Code(s): 55155790 Plan: Attests: I have performed history and physical examination of pt and developed impression and plan of care. Discussed with dictator. I agree with dictator's note, documented as a scribe.
[2019-05-16] MEDS: SALT AND SODA MOUTHWASH 1,000 ML PO SCH ×4 (11:34→23:37)
[2019-05-16] MEDS: ETOPOSIDE IV SCH (12:19)
[2019-05-16] MEDS: SODIUM CHLORIDE 0.9% IV SCH (12:19)
[2019-05-16] MEDS ORDERED: ONDANSETRON 16 MG in SODIUM CHLORIDE 0.9% 50 ML IVPB SCH (16:00)
[2019-05-16] MEDS ORDERED: methylPREDNISolone SOD SUCCI 125 MG/2 ML VIAL IV ONE (16:00)
[2019-05-16] MEDS ORDERED: SODIUM CHLORIDE 0.9% IV ONE (16:00)
[2019-05-16] MEDS ORDERED: FAMOTIDINE 20 MG/2 ML VIAL IV SCH (16:00)
[2019-05-16] MEDS ORDERED: RITUXIMAB IV ONE (16:00)
--- NOTE | 2019-05-16 16:26 | P.CONS ---
History of Present Illness - Reason for Consult Consult date: 05/16/19 Medical management Requesting physician: Parish Mims - Chief Complaint Chemo treatment - History of Present Illness Consultation: This is a very pleasant 63-year-old patient of Dr. Weller. Rather extensive medical history. Patient initially diagnosed as a lump in the right groin in 2016 had a biopsy done at [facility] and had a diagnosis of non- Hodgkin's lymphoma. Decision was made to follow with observation. She did not follow-up for the same. She had a possible breast lump ultrasound of the breast was negative. In October 2018 she had new abdominal pain and computed tomography scan showed a mass in the right lower quadrant. Along with adenopathy. She underwent resection of the right ovary and right fallopian tube and pelvic lymph node biopsy was carried out. 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 PET scan that showed multiple areas of uptake including the left axilla. PET scan showed areas of multiple uptake including left axilla, mediastinum, left breast, multiple areas in the retro-peritoneal.. She was hepatitis C positive. 2-D echo showed EF of 45%. She also had a cardiac catheterization in October 2018 came back to be negative. Patient was started with chemotherapy. High-grade B-cell non-Hodgkin's lymphoma. hepatitis C has become negative. Admitted for the cycle of chemotherapy. She has been doing fine. Appetite is okay. Bowels are good. No skin changes. No nausea vomiting. Able to get about. Review of systems: GEN.: None EYES: None HEENT: Alopecia NECK: None RESPIRATORY: None CARDIOVASCULAR: None GASTROINTESTINAL: None GENITOURINARY: None MUSCULOSKELETAL: Some chronic low back pain LYMPHATICS: None HEMATOLOGICAL: None PSYCHIATRY: None NEUROLOGICAL: None Past medical history to include: High-grade B-cell non-Hodgkin's lymphoma, hepatitis C, cardiomyopathy EF 45% atrial fibrillation, hypertension, hyperlipidemia chronic low back pain. She follows with Dr. 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 Alcohol occasionally Physical examination: VITAL SIGNS: 97.9, 62, 17, blood pressure 131/64, 100% on room air GENERAL: BMI 22.9 propped up in bed, awake EYES: Pupils equal. Conjunctiva pale. HEENT: External appearance of nose and ears normal, oral cavity normal. Loss of scalp hair NECK: JVD not raised; masses not palpable. HEART: First and second heart sounds are normal; no edema. LUNGS: Respiratory rate normal; decreased breath sounds. ABDOMEN: Soft, non- tenderness, liver spleen not palpable, no masses palpable. PSYCH: Alert and oriented x3; mood and affect normal NEUROLOGICAL: Cranial nerves grossly intact, power and sensation grossly intact INVESTIGATIONS, reviewed in the clinical context: White count 4.4, hemoglobin 11, platelets 145in 3.6, creatinine 1.31 Assessment: -High-grade B-cell Non-Hodgkin's lymphoma for -fourth cycle chemotherapy -Hepatitis C -Idiopathic Cardiomyopathy EF 35-40% -Essential hypertension -Hyperlipidemia -Normocytic anemia likely from chemotherapy -Chronic nicotine dependence patient cigarette smoker Plan: Patient be started on chemotherapy. Will be followed closely. Labs will be followed. Discussed with the patient Thank you Dr. Mims Past Medical History Past Medical History: Atrial Fibrillation, Cancer, Chest Pain / Angina, Eye Disorder, Hyperlipidemia, Hypertension, Liver Disease, Musculoskeletal Disorder, Pneumonia, Renal Disease Additional Past Medical History / Comment(s): 2006 nonhodgkins lymphoma-pt states no treatment needed, 10/2018 reoccurrence nonhodgkins lymphoma-received 2 rounds chemo/pet scan recently showed persistent abnormal uptake in chest/abd omin-pt recieving ICE chemo, abdominal pain/constipation, newly diagnosed hepatitis C-tx with medication and has been told she is cured, DDD, chronic low back pain/cervical pain (sees Dr. Cummins for pain management), migraines, decreased renal function with steroid/nsaid use. History of Any Multi-Drug Resistant Organisms: None Reported Past Surgical History: Heart Catheterization, Orthopedic Surgery Additional Past Surgical History / Comment(s): 2006 R groin lump biopsy at [facility], 10/28/18 Exploratory laparotomy with tubo-ovarian cancer/R salpingo- oophorectomy/removal pelvic lymph nodes, 12/03/18 Port a cath, 12/20/18 cardiac cath-normal/CHIQUIS, 2016 cardiac cath, vaginal polypectomy, R shoulder arthroscopy/rotator cuff repair x2, R knee arthroscopy, ORIF R ankle with plates/screws. Past Anesthesia/Blood Transfusion Reactions: No Reported Reaction Past Psychological History: No Psychological Hx Reported Smoking Status: Current every day smoker Past Alcohol Use History: Occasional Past Drug Use History: None Reported - Past Family History Mother Family Medical History: COPD, Coronary Artery Disease (CAD), Myocardial Infarction ([place]), Seizure Disorder Additional Family Medical History / Comment(s): Mother had a [place] at the age of 76yrs. She from fall/facial injury and aspirated blood. Father Family Medical History: Coronary Artery Disease (CAD), Seizure Disorder Additional Family Medical History / Comment(s): Father had a seizure while driving resulting in a MVA in which he . Medications and Allergies Home Medications Medication Instructions Recorded Confirmed Type Sertraline [Zoloft] 100 mg PO DAILY 06/05/14 05/16/19 History Ascorbic Acid [Vitamin C] 500 mg PO DAILY 06/07/14 05/16/19 History Metoprolol Tartrate [Lopressor] 25 mg PO BID 10/08/15 05/16/19 History Biotin 5 mg PO DAILY 10/25/18 05/16/19 History Simvastatin [Zocor] 40 mg PO HS 10/25/18 05/16/19 History clonazePAM [KlonoPIN] 0.5 mg PO BID PRN 10/25/18 05/16/19 History Calcium Carbonate/Vitamin D3 1 cap PO BID 12/01/18 05/16/19 History [Calcium 600-Vit D3 500 Softgel] Lisinopril [Zestril] 2.5 mg PO DAILY 12/01/18 05/16/19 History Spironolactone 25 mg PO DAILY 12/01/18 05/16/19 History Fluticasone Nasal [place] [Flonase 2 sprays EA NOSTRIL HS PRN 12/15/18 05/16/19 History Nasal [place]] Ondansetron HCl [Zofran] 4 mg PO Q4H PRN 12/15/18 05/16/19 History Amitriptyline HCl [Elavil] 25 mg PO HS 01/24/19 05/16/19 History Cetirizine HCl [Zyrtec] 10 mg PO DAILY PRN 01/24/19 05/16/19 History Cyclobenzaprine [Flexeril] 10 mg PO TID PRN 01/24/19 05/16/19 History Omeprazole 20 mg PO BID PRN 01/24/19 05/16/19 History Sertraline HCl [Zoloft] 50 mg PO DAILY 01/24/19 05/16/19 History traZODone HCL 50 mg PO HS PRN 01/24/19 05/16/19 History Vitamin C/Biotin [Hair, Skin and 1 tab PO DAILY 03/14/19 05/16/19 History Nails] oxyCODONE-APAP 10-325MG [Percocet 1 tab PO QID PRN 03/14/19 05/16/19 History 10-325 mg] Polyethylene Glycol 3350 [Miralax] 17 gm PO DAILY PRN #1 box 03/17/19 05/16/19 Rx Prochlorperazine [Compazine] 10 mg PO Q6H PRN #50 tab 03/17/19 05/16/19 Rx Sennosides [Senna] 8.6 mg PO BID PRN #100 tablet 03/17/19 05/16/19 Rx Lidocaine-Prilocaine Cream [Emla 1 applic TOPICAL DIRECTED PRN 05/16/19 05/16/19 History Cream 2.5%/2.5%] Loratadine [Claritin] 10 mg PO DAILY 05/16/19 05/16/19 History oxyCODONE ER [OxyCONTIN] 20 mg PO Q12HR PRN 05/16/19 05/16/19 History Allergies Allergy/AdvReac Type Severity Reaction Status Date / Time NSAIDS (Non-Steroidal AdvReac Swelling Verified 05/16/19 13:20 Anti-Inflamma Physical Exam Vitals: Vital Signs Temp Pulse Resp BP Pulse Ox 05/16/19 16:00 98.1 F 72 17 113/53 99 05/16/19 11:43 97.9 F 62 17 131/64 100 05/16/19 08:17 98.1 F 75 17 127/58 100 Intake and Output 05/16/19 05/16/19 05/16/19 06:59 14:59 22:59 Intake Total 1159 243 Balance 1159 243 Intake: Intake, IV Titration 919 243 Amount Etoposide 150 mg In 500 Sodium Chloride 0.9% 500 ml 500 ml @ 507.5 mls/hr IV DAILY@1600 [facility] Rx#: [id number] Ondansetron 16 mg In 50 Sodium Chloride 0.9% 50 ml @ 232 mls/hr IVPB Q24H [facility] Rx#:[id number] Sodium Chloride 0.9% 1, 300 000 ml @ 125 mls/hr IV . Q8H [facility] Rx#:[id number] riTUXimab 630 mg In 69 243 Sodium Chloride 0.9% 500 ml 500 ml @ Titrate IV . Q0M [facility] Rx#:[id number] Oral 240 Other: # Voids 1 Weight 62.5 kg Results CBC & Chem 7: 05/16/19 09:30 05/16/19 09:30 Labs: Abnormal Lab Results - Last 24 Hours (Table) 05/16/19 05/16/19 Range/Units 09:30 09:30 RBC 3.11 L (3.80-5.40) m/uL Hgb 11.0 L D (11.4-16.0) gm/dL MCV 109.2 H (80.0-100.0) fL MCH 35.2 H (25.0-35.0) pg RDW 15.9 H (11.5-15.5) % Plt Count 145 L (150-450) k/uL Lymphocytes # 0.8 L (1.0-4.8) k/uL Macrocytosis Marked A Creatinine 1.31 H (0.52-1.04) mg/dL Glucose 137 H (74-99) mg/dL Uric Acid 1.4 L (3.7-7.4) mg/dL
[2019-05-16] MEDS ORDERED: CYCLOBENZAPRINE 10 MG TAB PO PRN (20:15)
[2019-05-16] MEDS ORDERED: FLUTICASONE 50MCG/SPRAY NASAL 16GM EA NOSTRIL PRN (20:15)
[2019-05-16] MEDS ORDERED: traZODone HCL 50 MG TAB PO PRN (20:15)
[2019-05-16] MEDS ORDERED: PANTOPRAZOLE 40 MG TABLET PO PRN (20:15)
[2019-05-16] MEDS ORDERED: clonazePAM 0.5 MG TAB PO PRN (20:15)
[2019-05-16] MEDS ORDERED: SENNOSIDES 8.6 MG TAB PO PRN (20:15)
[2019-05-16] MEDS ORDERED: NON FORMULARY DRUG (Cetirizine Hcl [Zyrtec] 10 MG) PO PRN (20:15)
[2019-05-16] MEDS ORDERED: oxyCODONE-APAP 10-325MG 1 EACH TAB PO PRN (20:15)
[2019-05-16] MEDS ORDERED: POLYETHYLENE GLYCOL 3350 17 GM POWD.PACK PO PRN (20:15)
[2019-05-16] MEDS ORDERED: ONDANSETRON 4 MG TAB PO PRN (20:15)
[2019-05-16] MEDS ORDERED: PROCHLORPERAZINE 10 MG TAB PO PRN (20:15)
[2019-05-16] MEDS: CALCIUM CARB-VIT D 500MG-200UN 1 EACH TAB PO SCH (21:15)
[2019-05-16] MEDS: AMITRIPTYLINE HCL 25 MG TAB PO SCH (21:15)
[2019-05-16] MEDS: ATORVASTATIN 20 MG TAB PO SCH (21:15)
[2019-05-16] MEDS: METOPROLOL TARTRATE 25 MG TAB PO SCH (21:15)
[2019-05-17] MEDS: SALT AND SODA MOUTHWASH 1,000 ML PO SCH ×6 (04:02→23:04)
[2019-05-17] MEDS: CALCIUM CARB-VIT D 500MG-200UN 1 EACH TAB PO SCH ×2 (08:15→20:36)
[2019-05-17] MEDS: METOPROLOL TARTRATE 25 MG TAB PO SCH ×2 (08:15→20:36)
[2019-05-17] MEDS: LORATADINE 10 MG TAB PO SCH (08:15)
[2019-05-17] MEDS: SERTRALINE 50 MG TAB PO SCH (08:15)
[2019-05-17] MEDS: LISINOPRIL 2.5 MG TAB PO SCH (08:15)
[2019-05-17] MEDS: ENOXAPARIN 40 MG/0.4 ML SYRINGE SQ SCH (08:15)
[2019-05-17] MEDS: ASCORBIC ACID 500 MG TAB PO SCH (08:15)
[2019-05-17] MEDS: SODIUM CHLORIDE 0.9% 1,000 ML IV SCH ×3 (08:20→23:06)
[2019-05-17 08:38] LABS: Basophils % (A) 1 %; Eosinophils # (A) 0.1 k/uL (0-0.7); Eosinophils % (A) 1 %; HCT 26.7 % (34.0-46.0); Hypochromasia Moderate; Lymphocytes # (A) 0.9 k/uL (1.0-4.8); Lymphocytes % (A) 17 %; MCH 35.2 pg (25.0-35.0); MCHC 31.9 g/dL (31.0-37.0); MCV 110.5 fL (80.0-100.0); Macrocytosis Marked; Mean Platelet Volume 7.8; Monocytes # (A) 0.4 k/uL (0-1.0); Monocytes % (A) 8 %; Neutrophils % (A) 72 %; Platelet Count 150 k/uL (150-450); Poikilocytosis Slight; RBC 2.41 m/uL (3.80-5.40); RDW 15.9 % (11.5-15.5); WBC 5.5 k/uL (3.8-10.6)
[2019-05-17 08:52] LABS: HGB 8.5 gm/dL (11.4-16.0)
[2019-05-17 08:53] LABS: Albumin 3.7 g/dL (3.5-5.0); Calcium 8.6 mg/dL (8.4-10.2); Phosphorus 2.5 mg/dL (2.5-4.5); Potassium 4.1 mmol/L (3.5-5.1); Total Bilirubin 0.2 mg/dL (0.2-1.3); Total Protein 6.8 g/dL (6.3-8.2); Uric Acid 2.7 mg/dL (3.7-7.4)
[2019-05-17] MEDS ORDERED: NON FORMULARY DRUG (Vitamin C/Biotin [Hair, Skin And Nails] 1 TAB) PO SCH (09:00)
[2019-05-17] MEDS ORDERED: NON FORMULARY DRUG (Biotin [Biotin] 5 MG) PO SCH (09:00)
[2019-05-17] MEDS ORDERED: SPIRONOLACTONE 25 MG TAB PO SCH (09:00)
[2019-05-17] MEDS ORDERED: SERTRALINE 50 MG TAB PO SCH (09:00)
[2019-05-17] MEDS: FAMOTIDINE 20 MG/2 ML VIAL IV SCH (09:39)
[2019-05-17] MEDS: DEXAMETHASONE SOD PHOSPHATE 10 MG/ML 1 ML VIAL IV SCH (09:39)
[2019-05-17] MEDS: ONDANSETRON 16 MG in SODIUM CHLORIDE 0.9% 50 ML IVPB SCH (09:40)
[2019-05-17 10:39] LABS: Poikilocytosis (M) Present
[2019-05-17] MEDS: SODIUM CHLORIDE 0.9% IV SCH (12:27)
[2019-05-17] MEDS: ETOPOSIDE IV SCH (12:27)
[2019-05-17] MEDS ORDERED: IFOSFAMIDE IV ONE (16:00)
[2019-05-17] MEDS ORDERED: CARBOplatin 300 MG in SODIUM CHLORIDE 0.9% 250 ML IV ONE (16:00)
[2019-05-17] MEDS ORDERED: SODIUM CHLORIDE 0.9% IV ONE ×2 (16:00)
[2019-05-17] MEDS ORDERED: MESNA IV ONE (16:00)
--- NOTE | 2019-05-17 16:10 | P.PN ---
Subjective Progress Note Date: 05/17/19 Principal diagnosis: CIVI R-ICE for DLBCL In f/u today pt has no c/o, doing well, tolerating food and fluids in small amounts, no SE to report Objective - Vital Signs Vital signs: Vital Signs Temp 98.5 F 05/17/19 12:00 Pulse 75 05/17/19 12:00 Resp 16 05/17/19 12:00 BP 119/55 05/17/19 12:00 Pulse Ox 97 05/17/19 12:00 Intake & Output 05/16/19 05/17/19 05/17/19 18:59 06:59 18:59 Intake Total 1402 2460 1757 Balance 1402 2460 1757 Weight 62.5 kg Intake: Intake, IV Titration 1162 1500 1757 Amount CARBOplatin 300 mg In 250 Sodium Chloride 0.9% 250 ml @ 560 mls/hr IV ONCE ONE Rx#:[id number] Etoposide 150 mg In 500 507 Sodium Chloride 0.9% 500 ml 500 ml @ 507.5 mls/hr IV DAILY@1600 [facility] Rx#: [id number] Ondansetron 16 mg In 50 Sodium Chloride 0.9% 50 ml @ 232 mls/hr IVPB Q24H [facility] Rx#:[id number] Sodium Chloride 0.9% 1, 300 1500 1000 000 ml @ 125 mls/hr IV . Q8H [facility] Rx#:[id number] riTUXimab 630 mg In 312 Sodium Chloride 0.9% 500 ml 500 ml @ Titrate IV . Q0M ONE Rx#:[id number] Oral 240 960 Other: # Voids 1 1 - Constitutional General appearance: Present: average body habitus, cooperative, no acute distress - EENT Eyes: Present: anicteric sclerae, EOMI ENT: Present: hearing grossly normal, normal oropharynx - Respiratory Respiratory: bilateral: CTA - Cardiovascular Rhythm: regular Heart sounds: normal: S1, S2 - Peripheral edema foot Peripheral Edema: bilateral: Trace - Gastrointestinal General gastrointestinal: Present: normal bowel sounds, soft - Integumentary Integumentary: Present: normal, normal turgor - Neurologic Neurologic: Present: CNII-XII intact - Musculoskeletal Musculoskeletal: Present: strength equal bilaterally - Psychiatric Psychiatric: Present: A&O x's 3, appropriate affect, intact judgment & insight - Labs CBC & Chem 7: 05/17/19 06:54 05/17/19 06:54 Labs: Abnormal Lab Results - Last 24 Hours (Table) 05/17/19 05/17/19 Range/Units 06:54 06:54 RBC 2.41 L (3.80-5.40) m/uL Hgb 8.5 L D (11.4-16.0) gm/dL Hct 26.7 L (34.0-46.0) % MCV 110.5 H (80.0-100.0) fL MCH 35.2 H (25.0-35.0) pg RDW 15.9 H (11.5-15.5) % Lymphocytes # 0.9 L (1.0-4.8) k/uL Macrocytosis Marked A Chloride 111 H (98-107) mmol/L Creatinine 1.18 H (0.52-1.04) mg/dL Uric Acid 2.7 L (3.7-7.4) mg/dL Assessment and Plan (1) NHL (non-Hodgkin's lymphoma) Narrative/Plan: Admit for R-ICE, 4 day admission anticipated. Chemo orders reviewed, doses re-checked due to 10% reduction. Discussed with Pharmacy Supportive meds ordered Fluid status monitoring, reduce risk of CHF Home meds reconciled GI/DVT prophylaxis Labs daily Diet as tolerated Activity encouraged daily, mult times a day IM consulted for medical mgmt Current Visit: Yes Status: Chronic Priority: High Code(s): C85.90 - NON- HODGKIN LYMPHOMA, UNSPECIFIED, UNSPECIFIED SITE SNOMED Code(s): 662866360 (2) Bicytopenia Narrative/Plan: Secondary to chemo, disease. Plt normal today. Drop in Hgb noted-dilution? No acute intervention needed. Daily labs Current Visit: Yes Status: Acute Priority: Low Code(s): D75.89 - OTHER SPECIFIED DISEASES OF BLOOD AND BLOOD-FORMING ORGANS SNOMED Code(s): 08991215 (3) Hepatitis C Narrative/Plan: Completed oral therapy for the same Current Visit: No Status: Chronic Priority: Medium Code(s): B19.20 - UNSPECIFIED VIRAL HEPATITIS C WITHOUT HEPATIC COMA SNOMED Code(s): 16809146
[2019-05-17] MEDS: oxyCODONE ER 20 MG TAB.ER.12H PO PRN (16:44)
[2019-05-17] MEDS: AMITRIPTYLINE HCL 25 MG TAB PO SCH (20:36)
[2019-05-17] MEDS: ATORVASTATIN 20 MG TAB PO SCH (20:36)
--- NOTE | 2019-05-17 23:43 | P.PN ---
Progress Note - Text Progress Note Date: 05/17/19 - Chief Complaint Chemo treatment Consultation: This is a very pleasant 63-year-old patient of Dr. Weller. Rather extensive medical history. Patient initially diagnosed as a lump in the right groin in 2016 had a biopsy done at [facility] and had a diagnosis of non- Hodgkin's lymphoma. Decision was made to follow with observation. She did not follow-up for the same. She had a possible breast lump ultrasound of the breast was negative. In October 2018 she had new abdominal pain and computed tomography scan showed a mass in the right lower quadrant. Along with adenopathy. She underwent resection of the right ovary and right fallopian tube and pelvic lymph node biopsy was carried out. 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 PET scan that showed multiple areas of uptake including the left axilla. PET scan showed areas of multiple uptake including left axilla, mediastinum, left breast, multiple areas in the retro-peritoneal.. She was hepatitis C positive. 2-D echo showed EF of 45%. She also had a cardiac catheterization in October 2018 came back to be negative. Patient was started with chemotherapy. High-grade B-cell non-Hodgkin's lymphoma. hepatitis C has become negative. Admitted for the cycle of chemotherapy. She has been doing fine. Appetite is okay. Bowels are good. No skin changes. No nausea vomiting. Able to get about. Today-stable. Not very keen for the hospital food. No nausea. No fever no chills. Getting chemotherapy Review of systems: Was done for constitutional, cardiovascular, GI, pulmonary. relevant finding as above Active Medications Amitriptyline HCl (Elavil) 25 mg PO [facility] Last Admin: 05/17/19 20:36 Dose: 25 mg Documented by: Ascorbic Acid (Vitamin C) 500 mg PO DAILY [facility] Last Admin: 05/17/19 08:15 Dose: 500 mg Documented by: Atorvastatin Calcium (Lipitor) 20 mg PO [facility] Last Admin: 05/17/19 20:36 Dose: 20 mg Documented by: Calcium Carbonate (Oscal 500+D) 1 each PO BID [facility] Last Admin: 05/17/19 20:36 Dose: 1 each Documented by: Clonazepam (Klonopin) 0.5 mg PO BID PRN PRN Reason: Anxiety Cyclobenzaprine HCl (Flexeril) 10 mg PO TID PRN PRN Reason: Muscle Spasm Dexamethasone Sodium Phosphate (Decadron) 10 mg IV Q24H [facility] Stop: 05/18/19 11:31 Last Admin: 05/17/19 09:39 Dose: 10 mg Documented by: Enoxaparin Sodium (Lovenox) 40 mg SQ DAILY [facility] Last Admin: 05/17/19 08:15 Dose: 40 mg Documented by: Famotidine (Pepcid) 20 mg IV Q24H [facility] Stop: 05/18/19 11:31 Last Admin: 05/17/19 09:39 Dose: 20 mg Documented by: Fluticasone Propionate (Flonase Nasal [place]) 2 spray EA NOSTRIL HS PRN PRN Reason: Allergy Symptoms Sodium Chloride (Saline 0.9%) 1,000 mls @ 125 mls/hr IV .Q8H [facility] Last Admin: 05/17/19 23:06 Dose: 125 mls/hr Documented by: Ifosfamide 6,000 mg/Ifosfamide 1,600 mg/ Sodium Chloride 1,152 mls @ 48 mls/hr IV ONCE ONE Stop: 05/18/19 15:59 Last Admin: 05/17/19 14:15 Dose: 48 mls/hr Documented by: [place] 8,500 mg/ Sodium (Chloride) 425 mls @ 17.708 mls/hr IV ONCE ONE Stop: 05/18/19 15:59 Last Admin: 05/17/19 14:15 Dose: 17.708 mls/hr Documented by: Etoposide 150 mg/ Sodium (Chloride) 507.5 mls @ 507.5 mls/hr IV DAILY@1600 [facility] Stop: 05/18/19 16:59 Last Admin: 05/17/19 12:27 Dose: 507.5 mls/hr Documented by: Ondansetron HCl 16 mg/ Sodium (Chloride) 58 mls @ 232 mls/hr IVPB Q24H [facility] Stop: 05/18/19 11:44 Last Admin: 05/17/19 09:40 Dose: 232 mls/hr Documented by: Lisinopril (Zestril) 2.5 mg PO DAILY [facility] Last Admin: 05/17/19 08:15 Dose: 2.5 mg Documented by: Loratadine (Claritin) 10 mg PO DAILY [facility] Last Admin: 05/17/19 08:15 Dose: 10 mg Documented by: Metoprolol Tartrate (Lopressor) 25 mg PO BID [facility] Last Admin: 05/17/19 20:36 Dose: 25 mg Documented by: Ondansetron HCl (Zofran) 4 mg IVP Q6H PRN PRN Reason: Nausea Last Admin: 05/17/19 18:59 Dose: 4 mg Documented by: Ondansetron HCl (Zofran) 4 mg PO Q4H PRN PRN Reason: nausea Oxycodone HCl (Oxycontin 20mg E.R.) 20 mg PO Q12HR PRN PRN Reason: Pain Last Admin: 05/17/19 16:44 Dose: 20 mg Documented by: Oxycodone/Acetaminophen (Percocet 10-325) 1 each PO QID PRN PRN Reason: Pain Last Admin: 05/16/19 21:15 Dose: 1 each Documented by: Pantoprazole Sodium (Protonix) 40 mg PO DAILY PRN PRN Reason: Heartburn Polyethylene Glycol (Miralax) 17 gm PO DAILY PRN PRN Reason: Constipation Prochlorperazine Maleate (Compazine) 10 mg PO Q6H PRN PRN Reason: Nausea Senna (Senokot) 8.6 mg PO BID PRN PRN Reason: Constipation Sertraline HCl (Zoloft) 150 mg PO DAILY [facility] Last Admin: 05/17/19 08:15 Dose: 150 mg Documented by: Sodium Bicarbonate () 5 ml PO Q4HR [facility] Last Admin: 05/17/19 23:04 Dose: 5 ml Documented by: Spironolactone (Aldactone) 25 mg PO DAILY [facility] Last Admin: 05/17/19 08:15 Dose: 25 mg Documented by: Trazodone HCl (Desyrel) 50 mg PO HS PRN PRN Reason: Insomnia Last Admin: 05/16/19 21:15 Dose: 50 mg Documented by: Physical examination: VITAL SIGNS: 98.5, 75, 16, blood pressure 133/63, 99% on room air GENERAL: Sitting up, comfortable EYES: Pupils equal. Conjunctiva pale. HEENT: External appearance of nose and ears normal, oral cavity normal. Loss of scalp hair NECK: JVD not raised; masses not palpable. HEART: First and second heart sounds are normal; no edema. LUNGS: Respiratory rate normal; decreased breath sounds. ABDOMEN: Soft, non- tenderness, liver spleen not palpable, no masses palpable. PSYCH: Alert and oriented x3; mood and affect normal INVESTIGATIONS, reviewed in the clinical context: White count 5.5 hemoglobin 8.5 platelets 150 potassium 4.1 creatinine 1.18 uric acid 2.7 Previous testing White count 4.4, hemoglobin 11, platelets 145in 3.6, creatinine 1.31 Assessment: -High-grade B-cell Non-Hodgkin's lymphoma for -fourth cycle chemotherapy -Hepatitis C -Idiopathic Cardiomyopathy EF 35-40% -Essential hypertension -Hyperlipidemia -Normocytic anemia likely from chemotherapy -Chronic nicotine dependence patient cigarette smoker -Hyperuricemia from chemotherapy -Acute kidney injury likely prerenal - Plan: Patient is getting IV fluids. Follow Renal function. We'll DC the Aldactone for now. Recheck labs in the morning. Discussed the patient. Thank you Dr. Mims
[2019-05-18] MEDS: SALT AND SODA MOUTHWASH 1,000 ML PO SCH ×3 (03:48→15:06)
[2019-05-18 05:29] VITALS: RESP 16
[2019-05-18] MEDS: SERTRALINE 50 MG TAB PO SCH (08:53)
[2019-05-18] MEDS: ENOXAPARIN 40 MG/0.4 ML SYRINGE SQ SCH (08:53)
[2019-05-18] MEDS: ASCORBIC ACID 500 MG TAB PO SCH (08:53)
[2019-05-18] MEDS: LISINOPRIL 2.5 MG TAB PO SCH (08:53)
[2019-05-18] MEDS: METOPROLOL TARTRATE 25 MG TAB PO SCH (08:53)
[2019-05-18] MEDS: CALCIUM CARB-VIT D 500MG-200UN 1 EACH TAB PO SCH (08:53)
[2019-05-18] MEDS: LORATADINE 10 MG TAB PO SCH (08:53)
[2019-05-18] MEDS: oxyCODONE ER 20 MG TAB.ER.12H PO PRN (08:54)
[2019-05-18 08:56] LABS: Basophils % (A) 1 %; Eosinophils # (A) 0.1 k/uL (0-0.7); Eosinophils % (A) 3 %; HCT 25.4 % (34.0-46.0); Hypochromasia Moderate; Lymphocytes # (A) 0.7 k/uL (1.0-4.8); Lymphocytes % (A) 18 %; MCH 34.5 pg (25.0-35.0); MCHC 31.5 g/dL (31.0-37.0); MCV 109.4 fL (80.0-100.0); Macrocytosis Marked; Mean Platelet Volume 7.7; Monocytes # (A) 0.2 k/uL (0-1.0); Monocytes % (A) 6 %; Neutrophils # (A) 2.8 k/uL (1.3-7.7); Neutrophils % (A) 71 %; Platelet Count 137 k/uL (150-450); Poikilocytosis Slight; RBC 2.33 m/uL (3.80-5.40); RDW 15.7 % (11.5-15.5)
[2019-05-18] MEDS: SODIUM CHLORIDE 0.9% 1,000 ML IV SCH (08:59)
[2019-05-18 09:11] LABS: Albumin 3.3 g/dL (3.5-5.0); Calcium 8.1 mg/dL (8.4-10.2); Phosphorus 1.9 mg/dL (2.5-4.5); Potassium 3.7 mmol/L (3.5-5.1); Total Bilirubin 0.2 mg/dL (0.2-1.3); Total Protein 6.1 g/dL (6.3-8.2); Uric Acid 1.6 mg/dL (3.7-7.4)
[2019-05-18] MEDS ORDERED: POTAS-SOD-PHOS 278-164-250 MG 1 EACH PACKET PO SCH (11:00)
[2019-05-18 12:10] LABS: Target Cells Present
[2019-05-18 12:11] LABS: Tear Drop Cells Present
[2019-05-18 12:53] VITALS: PULSE 80; TEMP 98.1
[2019-05-18] MEDS: ONDANSETRON 16 MG in SODIUM CHLORIDE 0.9% 50 ML IVPB SCH (14:04)
[2019-05-18] MEDS: DEXAMETHASONE SOD PHOSPHATE 10 MG/ML 1 ML VIAL IV SCH (14:04)
[2019-05-18] MEDS: FAMOTIDINE 20 MG/2 ML VIAL IV SCH (14:04)
[2019-05-18] MEDS: ETOPOSIDE IV SCH (14:58)
[2019-05-18] MEDS: SODIUM CHLORIDE 0.9% IV SCH (14:58)
--- NOTE | 2019-05-18 15:50 | P.DS ---
Providers Date of admission: 05/16/19 07:52 Expected date of discharge: 05/18/19 Attending physician: Virgilio Gutiérrez Consults: 05/16/19 10:42 Consult Physician Routine Consulting Provider: Rohan Leung Consult Reason/Comments: Medical management Do you want consulting provider notified?: Already Contacted Primary care physician: Frank Weller - Discharge Diagnosis(es) (1) NHL (non-Hodgkin's lymphoma) Current Visit: Yes Status: Chronic Priority: High (2) Bicytopenia Current Visit: Yes Status: Acute Priority: Low (3) Hepatitis C Current Visit: No Status: Chronic Priority: Medium Hospital Course: Patient admitted for cycle 4 of R-ICE. Dose reduction of 10% on the chemotherap y drugs. Patient has done fairly well with treatment, some mild nausea, no vomiting, fevers, oral irritation, respiratory symptoms, abdominal complaints, diarrhea, constipation, dysuria, bleeding, or pain. She does have some generalized swelling, some mild periorbital edema. She has a conditional discharge. She will need vital signs and physical examination by our and prior to discharge. Assessment: Well-developed, adequately nourished, no acute distress, normocephalic, atraumatic, anicteric sclera, trachea is midline, mild periorbital edema, some generalized anasarca, very mild, respirations are even and unlabored, bilateral breath sounds clear to auscultation, respiratory effort is unlabored, chest expansion symmetrical, S1-S2, soft systolic murmur, regular rate and rhythm, abdomen mild distention, no masses, bowel sounds positive, no swelling in the lower extremities, she ambulates independently no weakness or difficulty breathing noted Health Concerns: CHF, swelling from fluids needed to prevent chemo SE. Patient will be seen in the office within 24 hours of discharge. She will be reassessed Pertinent Studies: none Procedures: none Patient Condition at Discharge: Stable Plan - Discharge Summary Discharge Rx Participant: No New Discharge Prescriptions: No Action Sertraline [Zoloft] 100 mg PO DAILY Ascorbic Acid [Vitamin C] 500 mg PO DAILY Metoprolol Tartrate [Lopressor] 25 mg PO BID Biotin 5 mg PO DAILY clonazePAM [KlonoPIN] 0.5 mg PO BID PRN PRN Reason: Anxiety Simvastatin [Zocor] 40 mg PO HS Lisinopril [Zestril] 2.5 mg PO DAILY Spironolactone 25 mg PO DAILY Calcium Carbonate/Vitamin D3 [Calcium 600-Vit D3 500 Softgel] 1 cap PO BID Ondansetron HCl [Zofran] 4 mg PO Q4H PRN PRN Reason: nausea Fluticasone Nasal [place] [Flonase Nasal [place]] 2 sprays EA NOSTRIL HS PRN PRN Reason: Allergy Symptoms traZODone HCL 50 mg PO HS PRN PRN Reason: Insomnia Omeprazole 20 mg PO BID PRN PRN Reason: Heartburn Cyclobenzaprine [Flexeril] 10 mg PO TID PRN PRN Reason: Muscle Spasm Amitriptyline HCl [Elavil] 25 mg PO HS Sertraline HCl [Zoloft] 50 mg PO DAILY Cetirizine HCl [Zyrtec] 10 mg PO DAILY PRN PRN Reason: Allergy Symptoms oxyCODONE-APAP 10-325MG [Percocet 10-325 mg] 1 tab PO QID PRN PRN Reason: Pain Vitamin C/Biotin [Hair, Skin and Nails] 1 tab PO DAILY Prochlorperazine [Compazine] 10 mg PO Q6H PRN #50 tab PRN Reason: Nausea Polyethylene Glycol 3350 [Miralax] 17 gm PO DAILY PRN #1 box PRN Reason: Constipation Sennosides [Senna] 8.6 mg PO BID PRN #100 tablet PRN Reason: Constipation oxyCODONE ER [OxyCONTIN] 20 mg PO Q12HR PRN PRN Reason: Pain Lidocaine-Prilocaine Cream [Emla Cream 2.5%/2.5%] 1 applic TOPICAL DIRECTED PRN PRN Reason: PORT ACCESS Loratadine [Claritin] 10 mg PO DAILY Discharge Medication List Sertraline [Zoloft] 100 mg PO DAILY 06/05/14 [History] Ascorbic Acid [Vitamin C] 500 mg PO DAILY 06/07/14 [History] Metoprolol Tartrate [Lopressor] 25 mg PO BID 10/08/15 [History] Biotin 5 mg PO DAILY 10/25/18 [History] Simvastatin [Zocor] 40 mg PO HS 10/25/18 [History] clonazePAM [KlonoPIN] 0.5 mg PO BID PRN 10/25/18 [History] Calcium Carbonate/Vitamin D3 [Calcium 600-Vit D3 500 Softgel] 1 cap PO BID 12/01/18 [History] Lisinopril [Zestril] 2.5 mg PO DAILY 12/01/18 [History] Spironolactone 25 mg PO DAILY 12/01/18 [History] Fluticasone Nasal [place] [Flonase Nasal [place]] 2 sprays EA NOSTRIL HS PRN 12/15/18 [History] Ondansetron HCl [Zofran] 4 mg PO Q4H PRN 12/15/18 [History] Amitriptyline HCl [Elavil] 25 mg PO HS 01/24/19 [History] Cetirizine HCl [Zyrtec] 10 mg PO DAILY PRN 01/24/19 [History] Cyclobenzaprine [Flexeril] 10 mg PO TID PRN 01/24/19 [History] Omeprazole 20 mg PO BID PRN 01/24/19 [History] Sertraline HCl [Zoloft] 50 mg PO DAILY 01/24/19 [History] traZODone HCL 50 mg PO HS PRN 01/24/19 [History] Vitamin C/Biotin [Hair, Skin and Nails] 1 tab PO DAILY 03/14/19 [History] oxyCODONE-APAP 10-325MG [Percocet 10-325 mg] 1 tab PO QID PRN 03/14/19 [History] Polyethylene Glycol 3350 [Miralax] 17 gm PO DAILY PRN #1 box 03/17/19 [Rx] Prochlorperazine [Compazine] 10 mg PO Q6H PRN #50 tab 03/17/19 [Rx] Sennosides [Senna] 8.6 mg PO BID PRN #100 tablet 03/17/19 [Rx] Lidocaine-Prilocaine Cream [Emla Cream 2.5%/2.5%] 1 applic TOPICAL DIRECTED PRN 05/16/19 [History] Loratadine [Claritin] 10 mg PO DAILY 05/16/19 [History] oxyCODONE ER [OxyCONTIN] 20 mg PO Q12HR PRN 05/16/19 [History] Follow up Appointment(s)/Referral(s): Virgilio Gutiérrez MD [STAFF PHYSICIAN] - 05/19/19 4:30 pm (This appt is at the [facility]-for GCSF injection) [facility], [NON-STAFF] - 1 Week Patient Instructions/Handouts: Eating During Cancer Treatment (DC), Chemo Induced Nausea and Vomiting (DC) Activity/Diet/Wound Care/Special Instructions: Diet as tolerated Activity as tolerated Nutri-phos pkg x 3 doses Discharge Disposition: HOME SELF-CARE Pending Studies Pending Results: none
[2019-05-18 16:29] VITALS: BP 140/63
--- NOTE | 2019-05-18 23:34 | P.PN ---
Progress Note - Text Progress Note Date: 05/18/19 - Chief Complaint Chemo treatment Consultation: This is a very pleasant 63-year-old patient of Dr. Weller. Rather extensive medical history. Patient initially diagnosed as a lump in the right groin in 2016 had a biopsy done at [facility] and had a diagnosis of non- Hodgkin's lymphoma. Decision was made to follow with observation. She did not follow-up for the same. She had a possible breast lump ultrasound of the breast was negative. In October 2018 she had new abdominal pain and computed tomography scan showed a mass in the right lower quadrant. Along with adenopathy. She underwent resection of the right ovary and right fallopian tube and pelvic lymph node biopsy was carried out. 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 PET scan that showed multiple areas of uptake including the left axilla. PET scan showed areas of multiple uptake including left axilla, mediastinum, left breast, multiple areas in the retro-peritoneal.. She was hepatitis C positive. 2-D echo showed EF of 45%. She also had a cardiac catheterization in October 2018 came back to be negative. Patient was started with chemotherapy. High-grade B-cell non-Hodgkin's lymphoma. hepatitis C has become negative. Admitted for the cycle of chemotherapy. She has been doing fine. Appetite is okay. Bowels are good. No skin changes. No nausea vomiting. Able to get about. Today-completing chemotherapy this morning. A bit tired. Did tolerate some breakfast brought in by . No diarrhea. Review of systems: Was done for constitutional, cardiovascular, GI, pulmonary. relevant finding as above Current medications reviewed in today's electronic record Physical examination: VITAL SIGNS: 97.5, 87, 16, blood pressure 125/58, 98% on room air GENERAL: Laying in bed, comfortable EYES: Pupils equal. Conjunctiva pale. HEENT: External appearance of nose and ears normal, oral cavity normal. Loss of scalp hair NECK: JVD not raised; masses not palpable. HEART: First and second heart sounds are normal; no edema. LUNGS: Respiratory rate normal; decreased breath sounds. ABDOMEN: Soft, non- tenderness, liver spleen not palpable, no masses palpable. PSYCH: Alert and oriented x3; mood and affect normal INVESTIGATIONS, reviewed in the clinical context: Potassium 4 hemoglobin 8 platelets 137 potassium 3.7 creatinine 1 phosphorous 1.9 uric acid 1.6 Previous testing White count 4.4, hemoglobin 11, platelets 145in 3.6, creatinine 1.31 Assessment: -High-grade B-cell Non-Hodgkin's lymphoma for -fourth cycle chemotherapy -Bicytopenia from chemotherapy -Hepatitis C -Idiopathic Cardiomyopathy EF 35-40% -Essential hypertension -Hyperlipidemia -Normocytic anemia likely from chemotherapy -Chronic nicotine dependence patient cigarette smoker -Hyperuricemia from chemotherapy -Acute kidney injury likely prerenal - Plan: Patient is stable. A bit tired. Tolerated chemotherapy. Discussed with Tamiko. If stable can be discharged home. Follow-up labs Thank you Dr. Mims
== END 2019-05-18 17:19 | disposition home or self-care (01) | DRG 847 ==
LOC: 5NMEDONC 07:52
PROVIDERS: ADMIT Internal Medicine Hematology & Oncology; ATTEND Internal Medicine Hematology & Oncology
DX: Z51.11 Encounter for antineoplastic chemotherapy (principal); C83.38 Diffuse large B-cell lymphoma, lymph nodes of multiple sites; N17.9 Acute kidney failure, unspecified; I42.9 Cardiomyopathy, unspecified; D69.6 Thrombocytopenia, unspecified; B19.20 Unspecified viral hepatitis C without hepatic coma; I48.91 Unspecified atrial fibrillation; E78.5 Hyperlipidemia, unspecified; H57.9 Unspecified disorder of eye and adnexa; M51.36 Other intervertebral disc degeneration, lumbar region; G89.29 Other chronic pain; F17.210 Nicotine dependence, cigarettes, uncomplicated; D64.81 Anemia due to antineoplastic chemotherapy; I10 Essential (primary) hypertension; G43.909 Migraine, unspecified, not intractable, without status migrainosus; M54.2 Cervicalgia; M62.838 Other muscle spasm; G47.00 Insomnia, unspecified; E79.0 Hyperuricemia without signs of inflammatory arthritis and tophaceous disease; T45.1X5A Adverse effect of antineoplastic and immunosuppressive drugs, initial encounter; Z79.899 Other long term (current) drug therapy; Z90.721 Acquired absence of ovaries, unilateral; Z90.79 Acquired absence of other genital organ(s); Z87.01 Personal history of pneumonia (recurrent); Z98.890 Other specified postprocedural states; Z96.7 Presence of other bone and tendon implants; Z92.21 Personal history of antineoplastic chemotherapy; Z95.828 Presence of other vascular implants and grafts; Z86.69 Personal history of other diseases of the nervous system and sense organs; Z87.448 Personal history of other diseases of urinary system; Z88.6 Allergy status to analgesic agent; Z82.5 Family history of asthma and other chronic lower respiratory diseases; Z82.49 Family history of ischemic heart disease and other diseases of the circulatory system; Z82.0 Family history of epilepsy and other diseases of the nervous system
CPT/HCPCS: 80053; 84100; 84550; 85025

== ENCOUNTER → 2019-08-09 | Outpatient (CLI) | payer MEDICARE, OTHER ==
[2019-08-09 13:05] LABS: HCT 39.1 % (34.0-46.0); HGB 12.5 gm/dL (11.4-16.0); Hypochromasia Slight; MCH 34.7 pg (25.0-35.0); Macrocytosis Marked; Platelet Count 104 k/uL (150-450); RBC 3.61 m/uL (3.80-5.40); RDW 14.1 % (11.5-15.5); WBC 4.9 k/uL (3.8-10.6)
[2019-08-09 13:31] LABS: MCV 108.5 fL (80.0-100.0)
[2019-08-09 20:03] LABS: % Iron Saturation 17.48 (12.00-45.00); African American GFR (CKD) 31.5 (60.0-200.0); Albumin 4.6 g/dL (3.80-4.90); Albumin/Globulin Ratio 1.7 (1.60-3.17); Anion Gap 4.2 mmol/L (4.00-12.00); BUN/Creat Ratio 8.42 Ratio (12.00-20.00); Calcium 9.4 mg/dL (8.7-10.3); Carbon Dioxide 23.8 mmol/L (21.6-31.8); Ferritin 79.1 ng/mL (10.0-291.0); Globulin 2.7 g/dL (1.6-3.3); Non-African American GFR(CKD) 27.2 (60.0-200.0); Potassium 4.8 mmol/L (3.5-5.5); Total Bilirubin 0.4 mg/dL (0.3-1.2); Total Protein 7.3 g/dL (6.2-8.2)
[2019-08-09 20:05] LABS: Folate, Serum 13.6 ng/mL; T4, Free (Free Thyroxine) 0.8 ng/dL (0.80-1.80)
[2019-08-11 08:05] LABS: Vit B1(Thiamine) 60 ug/L (38-122)
== END | disposition home or self-care (01) ==
LOC: LABWHC1 12:01
PROVIDERS: ATTEND Psychiatry & Neurology Neurology
DX: D64.9 Anemia, unspecified (principal); R53.83 Other fatigue
CPT/HCPCS: 36415; 80053; 82607; 82668; 82728; 82746; 83540; 83550; 84207; 84425; 84439; 84443; 84466; 84481; 84591; 85027; 85045

== ENCOUNTER 2019-08-22 06:16 | Day surgery (SDC) | payer MEDICARE, OTHER ==
[2019-08-19 13:20] VITALS: BMI 21.4
[~2019-08-22 06:16] MED LIST changes: +ACETAMINOPHEN TAB 500 MG TAB PO ONE; +DEXAMETHASONE SOD PHOSPHATE 10 MG/ML 1 ML VIAL IV ONE; +HEPARIN SODIUM,PORCINE 5,000 UNIT/ML 1 ML VIAL SQ ONE; +LACTATED RINGERS 1,000 ML IV SCH; +ONDANSETRON 4 MG/2 ML VIAL IVP ONE; -ONDANSETRON 4 MG/2 ML VIAL IVP PRN
[2019-08-22 06:44] VITALS: RESP 16
[2019-08-22] MEDS ORDERED: LIDOCAINE 1% (10MG/ML) FOR IV START INTRADERMA ONE (06:52)
[2019-08-22] MEDS ORDERED: PROPOFOL 10 MG/ML 20 ML VIAL IV ONE (07:31)
[2019-08-22] MEDS ORDERED: SUCCINYLCHOLINE CHLORIDE 100 MG/5 ML SYR IV ONE (07:31)
[2019-08-22] MEDS ORDERED: fentaNYL (PF) 50 MCG/ML 2 ML AMP ONE (07:31)
[2019-08-22] MEDS ORDERED: GLYCOPYRROLATE 0.2 MG/ML 2 ML VIAL ONE (07:31)
[2019-08-22] MEDS ORDERED: NEOSTIGMINE 1 MG/ML 10 ML VIAL ONE (07:31)
[2019-08-22] MEDS ORDERED: LIDOCAINE 1% INJ 10MG/ML (20 ML MDV) ONE (07:31)
[2019-08-22] MEDS ORDERED: ROCURONIUM BROMIDE 10 MG/ML 5 ML VIAL IV ONE (07:31)
[2019-08-22] MEDS ORDERED: MIDAZOLAM 2 MG/2 ML VIAL ONE (07:31)
[2019-08-22] MEDS ORDERED: HYDROmorphone (PF) 1 MG/ML ONE (07:31)
--- NOTE | 2019-08-22 07:39 | P.GSHP ---
History of Present Illness H&P Date: 08/22/19 Chief Complaint: Right upper quadrant pain This a 64-year-old female with withdrawn quadrant pain. Patient known to have gallstones. She presents today for laparoscopic cholecystectomy Past Medical History Past Medical History: Atrial Fibrillation, Cancer, Chest Pain / Angina, Eye Disorder, Hyperlipidemia, Hypertension, Liver Disease, Musculoskeletal Disorder, Pneumonia, Renal Disease Additional Past Medical History / Comment(s): 2006 NHL (lymphoma) - no tx needed, then returned 10/2018, received 2 rounds chemo, last in 05/2019 (ICE chemo), Hepatitis C-tx 2019 & told cured, DDD, Chronic LBP/cervical pain (Dr. Cummins for pain), migraines, decreased renal function w/ steroid/nsaid use. Hx glaucoma. Varicose veins. Gallstones. In PT for strength. Port in Rt subclavian. History of Any Multi-Drug Resistant Organisms: None Reported Past Surgical History: Heart Catheterization, Orthopedic Surgery Additional Past Surgical History / Comment(s): 2006 R groin lump biopsy, 10/28/18 Exploratory laparotomy w/ tubo-ovarian cancer/R salpingo-oophorectomy/removal pelvic lymph nodes, 12/03/18 Port a cath, 12/20/18 cardiac cath-normal/CHIQUIS, 2015 cardiac cath, vaginal polypectomy, R shoulder arthroscopy/rotator cuff repair x2, R knee arthroscopy, ORIF R ankle with plates/screws. Past Anesthesia/Blood Transfusion Reactions: No Reported Reaction Smoking Status: Current some day smoker - Past Family History Mother Family Medical History: COPD, Coronary Artery Disease (CAD), Myocardial Infarction (PR), Seizure Disorder Additional Family Medical History / Comment(s): Mother had a PR at the age of 76yrs. She from fall/facial injury and aspirated blood. Father Family Medical History: Coronary Artery Disease (CAD), Seizure Disorder Additional Family Medical History / Comment(s): Father had a seizure while driving resulting in a MVA in which he . Medications and Allergies Home Medications Medication Instructions Recorded Confirmed Type Sertraline [Zoloft] 100 mg PO DAILY 06/05/14 08/22/19 History Ascorbic Acid [Vitamin C] 500 mg PO DAILY 06/07/14 08/22/19 History Metoprolol Tartrate [Lopressor] 25 mg PO BID 10/08/15 08/22/19 History Biotin 5 mg PO DAILY 10/25/18 08/22/19 History Simvastatin [Zocor] 40 mg PO HS 10/25/18 08/22/19 History clonazePAM [KlonoPIN] 0.5 mg PO BID PRN 10/25/18 08/22/19 History Calcium Carbonate/Vitamin D3 1 cap PO BID 12/01/18 08/22/19 History [Calcium 600-Vit D3 500 Softgel] Lisinopril [Zestril] 2.5 mg PO DAILY 12/01/18 08/22/19 History Fluticasone Nasal [place] [Flonase 2 sprays EA NOSTRIL HS PRN 12/15/18 08/22/19 History Nasal [place]] Ondansetron HCl [Zofran] 4 mg PO Q4H PRN 12/15/18 08/22/19 History Amitriptyline HCl [Elavil] 25 mg PO HS 01/24/19 08/22/19 History Cetirizine HCl [Zyrtec] 10 mg PO DAILY PRN 01/24/19 08/22/19 History Cyclobenzaprine [Flexeril] 10 mg PO TID PRN 01/24/19 08/22/19 History Omeprazole 20 mg PO BID PRN 01/24/19 08/22/19 History Sertraline HCl [Zoloft] 50 mg PO DAILY 01/24/19 08/22/19 History traZODone HCL 50 mg PO HS PRN 01/24/19 08/22/19 History Vitamin C/Biotin [Hair, Skin and 1 tab PO DAILY 03/14/19 08/22/19 History Nails] oxyCODONE-APAP 10-325MG [Percocet 1 tab PO QID PRN 03/14/19 08/22/19 History 10-325 mg] Polyethylene Glycol 3350 [Miralax] 17 gm PO DAILY PRN #1 box 03/17/19 08/22/19 Rx Prochlorperazine [Compazine] 10 mg PO Q6H PRN #50 tab 03/17/19 08/22/19 Rx Sennosides [Senna] 8.6 mg PO BID PRN #100 tablet 03/17/19 08/22/19 Rx Lidocaine-Prilocaine Cream [Emla 1 applic TOPICAL DIRECTED PRN 05/16/19 08/22/19 History Cream 2.5%/2.5%] Loratadine [Claritin] 10 mg PO DAILY 05/16/19 08/22/19 History oxyCODONE ER [OxyCONTIN] 20 mg PO Q12HR PRN 05/16/19 08/22/19 History Allergies Allergy/AdvReac Type Severity Reaction Status Date / Time NSAIDS (Non-Steroidal AdvReac Swelling, Verified 08/22/19 06:44 Anti-Inflamma "shuts kidneys down" Surgical - Exam Vital Signs Temp Pulse Resp BP Pulse Ox 97 F L 72 16 131/55 100 08/22/19 06:37 08/22/19 06:37 08/22/19 06:37 08/22/19 06:37 08/22/19 06:37 - General well developed, well nourished, no distress - Eyes PERRL - ENT normal pinna - Neck no masses - Respiratory normal expansion - Cardiovascular Rhythm: regular - Abdomen Abdomen: soft, non tender Assessment and Plan Assessment: Right upper quadrant pain. Cholelithiasis. We'll perform laparoscopic cholecystectomy
[2019-08-22] MEDS ORDERED: BUPIVACAIN-EPI 0.25%-1:200,000 30 ML VIAL SQ ONE (07:46)
--- NOTE | 2019-08-22 08:24 | P.OP ---
Date of Procedure: 08/22/19 Preoperative Diagnosis: Cholecystitis Postoperative Diagnosis: Chronic cholecystitis Cholelithiasis Procedure(s) Performed: Laparoscopic cholecystectomy Anesthesia: JORGE Surgeon: Fahad Brush Estimated Blood Loss (ml): 10 Pathology: other (Gallbladder) Condition: stable Disposition: PACU Description of Procedure: The patient was placed on the operating table. The patient received a general endotracheal tube anesthesia. The patients abdomen was prepped and draped in the usual sterile fashion. Through an infraumbilical stab incision, the fascia of the anterior abdominal wall was grasped with a pair of Kochers and then the Veress needle was placed in the peritoneal cavity. Position of the Veress needle was confirmed with positive drop test. The abdomen was then insufflated. After adequate insufflation, the 10 mm trocar was placed in the peritoneal cavity. Following this the laparoscope was placed in the peritoneal cavity. The patient was placed in the head-up, right side up position and then a 5 mm trocar was placed in the right lateral and right subcostal position under direct visualization. A 8 mm trocar was placed in the epigastric position. The gallbladder was grasped in the fundus and infundibulum. Traction on the gallbladder was placed in the lateral and the cephalad positions. The triangle of Calot was visualized.. The cystic duct was bluntly dissected until the union of the cystic duct and common bile duct was seen. A critical view of safety was achieved. The cystic duct was then divided and sealed with the Harmonic scissors. A PDS Endoloop was then placed throughout the cystic duct stump. The cystic artery divided and sealed with the Harmonic scissors. The gallbladder was then removed from the liver bed using Harmonic scissors. The gallbladder was then extracted through the epigastric port site. Operative field was checked for any bleeding spots and Harmonic scissors was used to coagulate the liver bed. The abdomen was irrigated. The trocars were removed. The skin was closed using interrupted 3-0 Vicryl suture. Dermabond dressing were applied. The patient tolerated the procedure well.
[2019-08-22 08:43] VITALS: TEMP 97.8
[2019-08-22] MEDS: HYDROmorphone 0.5 MG/0.5 ML SYRINGE IVP PRN ×2 (08:52→09:06)
[2019-08-22] MEDS ORDERED: oxyCODONE-APAP 5-325MG 1 EACH TAB PO ONE (10:01)
[2019-08-22 10:49] VITALS: PULSE 57
[2019-08-22 12:09] VITALS: BP 105/62
== END 2019-08-22 12:33 | disposition home or self-care (01) ==
LOC: OR 06:16
PROVIDERS: ATTEND Surgery
DX: K80.10 Calculus of gallbladder with chronic cholecystitis without obstruction (principal); I10 Essential (primary) hypertension; I48.91 Unspecified atrial fibrillation; E78.5 Hyperlipidemia, unspecified; N28.9 Disorder of kidney and ureter, unspecified; G43.909 Migraine, unspecified, not intractable, without status migrainosus; F32.9 Major depressive disorder, single episode, unspecified; K21.9 Gastro-esophageal reflux disease without esophagitis; H40.9 Unspecified glaucoma; I83.90 Asymptomatic varicose veins of unspecified lower extremity; G89.29 Other chronic pain; M54.5 Low back pain; M54.2 Cervicalgia; F17.200 Nicotine dependence, unspecified, uncomplicated; Z86.19 Personal history of other infectious and parasitic diseases; Z98.890 Other specified postprocedural states; Z88.6 Allergy status to analgesic agent; Z79.891 Long term (current) use of opiate analgesic; Z79.899 Other long term (current) drug therapy; Z87.01 Personal history of pneumonia (recurrent); Z85.72 Personal history of non-Hodgkin lymphomas; Z92.21 Personal history of antineoplastic chemotherapy; Z90.721 Acquired absence of ovaries, unilateral; Z82.49 Family history of ischemic heart disease and other diseases of the circulatory system; Z82.0 Family history of epilepsy and other diseases of the nervous system; Z82.5 Family history of asthma and other chronic lower respiratory diseases
CPT/HCPCS: 88304; 47562; J2250; J1644; J1100; J2710; J0690; J2405; J2001; J3010; J1170 ×2; J0330; J2704

== ENCOUNTER → 2019-09-23 | Outpatient (CLI) | payer MEDICARE ==
[2019-09-23 10:22] LABS: Basophils # (A) 0.1 k/uL (0-0.2); Basophils % (A) 1 %; Eosinophils # (A) 0.3 k/uL (0-0.7); Eosinophils % (A) 4 %; HCT 39.6 % (34.0-46.0); HGB 12.5 gm/dL (11.4-16.0); Hypochromasia Slight; Lymphocytes % (A) 17 %; MCH 32.4 pg (25.0-35.0); MCHC 31.5 g/dL (31.0-37.0); Macrocytosis Slight; Mean Platelet Volume 7.2; Monocytes # (A) 0.3 k/uL (0-1.0); Monocytes % (A) 6 %; Neutrophils # (A) 4.2 k/uL (1.3-7.7); Neutrophils % (A) 70 %; Platelet Count 130 k/uL (150-450); RBC 3.85 m/uL (3.80-5.40); RDW 13.4 % (11.5-15.5); WBC 6.1 k/uL (3.8-10.6)
[2019-09-23 10:24] LABS: MCV 102.8 fL (80.0-100.0)
[2019-09-23 16:24] LABS: African American GFR (CKD) 29.6 (60.0-200.0); Albumin 4.7 g/dL (3.80-4.90); Albumin/Globulin Ratio 1.74 (1.60-3.17); Anion Gap 5.7 mmol/L (4.00-12.00); Calcium 9.6 mg/dL (8.7-10.3); Carbon Dioxide 23.3 mmol/L (21.6-31.8); Chol/HDL Ratio 5.59; Globulin 2.7 g/dL (1.6-3.3); LDL Cholesterol,Calculated 143.6 mg/dL (0.0-131.0); Non-African American GFR(CKD) 25.6 (60.0-200.0); Total Bilirubin 0.3 mg/dL (0.3-1.2); Total Protein 7.4 g/dL (6.2-8.2); VLDL Calculation 58.4 mg/dL (5.00-40.00)
== END | disposition home or self-care (01) ==
LOC: LABWHC1 08:15
PROVIDERS: ATTEND Family Medicine
DX: E78.5 Hyperlipidemia, unspecified (principal)
CPT/HCPCS: 36415; 80053; 80061; 85025

== ENCOUNTER → 2019-11-11 | Outpatient (CLI) | payer MEDICARE ==
[2019-11-11 14:43] LABS: Basophils # (A) 0.1 k/uL (0-0.2); Basophils % (A) 2 %; Eosinophils # (A) 0.3 k/uL (0-0.7); Eosinophils % (A) 6 %; HCT 36.5 % (34.0-46.0); HGB 11.6 gm/dL (11.4-16.0); Hypochromasia Slight; Lymphocytes # (A) 0.9 k/uL (1.0-4.8); Lymphocytes % (A) 18 %; MCHC 31.7 g/dL (31.0-37.0); MCV 104.1 fL (80.0-100.0); Macrocytosis Slight; Mean Platelet Volume 7.6; Monocytes # (A) 0.3 k/uL (0-1.0); Monocytes % (A) 5 %; Neutrophils # (A) 3.3 k/uL (1.3-7.7); Neutrophils % (A) 68 %; Platelet Count 101 k/uL (150-450); RBC 3.51 m/uL (3.80-5.40); RDW 14.4 % (11.5-15.5); WBC 4.9 k/uL (3.8-10.6)
[2019-11-11 20:42] LABS: % Iron Saturation 25.52 (12.00-45.00); ALT 15 U/L (8-44); AST 24 U/L (13-35); Albumin/Globulin Ratio 1.74 (1.60-3.17); Alkaline Phosphatase 93 U/L (41-126); BUN/Creat Ratio 9.13 Ratio (12.00-20.00); Calcium 9.7 mg/dL (8.7-10.3); Carbon Dioxide 21.7 mmol/L (21.6-31.8); Chloride 108 mmol/L (96-109); Globulin 2.7 g/dL (1.6-3.3); Glucose 120 mg/dL (70-110); Iron 73 ug/dL (50-170); Non-African American GFR(CKD) 21.6 (60.0-200.0); Potassium 3.8 mmol/L (3.5-5.5); Sodium 138 mmol/L (135-145); Total Bilirubin 0.3 mg/dL (0.3-1.2); Total Iron Binding Capacity 286 ug/dL (228-460); Total Protein 7.4 g/dL (6.2-8.2)
[2019-11-11 20:52] LABS: Ferritin 140.2 ng/mL (10.0-291.0)
[2019-11-11 21:03] LABS: Folate, Serum >24.0 ng/mL
== END | disposition home or self-care (01) ==
LOC: LABWHC1 12:40
PROVIDERS: ATTEND Psychiatry & Neurology Pain Medicine
DX: D64.9 Anemia, unspecified (principal); C85.90 Non-Hodgkin lymphoma, unspecified, unspecified site; Z51.81 Encounter for therapeutic drug level monitoring
CPT/HCPCS: 36415; 80053; 82607; 82728; 82746; 83540; 83550; 83921; 84207; 84439; 84443; 84466; 84481; 85025

== ENCOUNTER → 2019-11-28 | Outpatient (CLI) | payer MEDICARE ==
--- NOTE | 2019-11-28 12:03 | US ---
EXAMINATION TYPE: US mass soft tissue chest/back DATE OF EXAM: 11/28/2019 COMPARISON: CT 05/12/2019 CLINICAL HISTORY: 64-year-old female R22.2 Mass in trunk. Pt states palpable lump (about size of golf ball) on left gluteal region, pt has h/o lymphoma since 2006 TECHNIQUE: Targeted ultrasound examination along the palpable site along the left gluteal region. FINDINGS: Software Product Specialist notes: Two hypoechoic areas visualized at area pt's palpable within left gluteal region 1)= 2.9 x 1.3 x 2.0 cm 2)= Larger, medial= 3.4 x 1.6 x 3.6 cm Areas are non-vascular On the provided images, these areas are located in the deep subcutaneous adipose layer superficial mu scular layer. IMPRESSION: 2 discrete hypoechoic lesions at the patient's left gluteal palpable site either located in the deep subcutaneous adipose layer or in the superficial muscle layer. The lesions measure 3.4 cm and 2.9 cm. Given the patient's history of lymphoma, percutaneous biopsy can be considered. Consideration can be given to contrast-enhanced MRI prior to biopsy for better localization.
== END | disposition home or self-care (01) ==
LOC: RADUSWWP 07:46
PROVIDERS: ATTEND Internal Medicine Hematology & Oncology
DX: R22.2 Localized swelling, mass and lump, trunk (principal)

== ENCOUNTER → 2019-12-16 | Outpatient (CLI) | payer MEDICARE, OTHER ==
--- NOTE | 2019-12-16 13:12 | PE ---
EXAMINATION TYPE: PET CT fusion skull to thigh DATE OF EXAM: 12/16/2019 COMPARISON: Prior CT May 12, 2019 and older CTs. Prior PET/CT March 04, 2019 and older PET CTs HISTORY: Non-Hodgkin's lymphoma progress study. Completed chemotherapy May 2019. Originally diagn osed in 2019 above and below diaphragm. TECHNIQUE: Following the intravenous administration of 11.39 mCi of F-18 FDG, whole body images are performed from the skull base to the midthigh. Images are reviewed on the computer in the coronal, a xial, and sagittal planes. Reconstructed rotating images are created on independent workstation and reviewed on the computer. A noncontrast CT is performed in conjunction with the PET scan. SCAN: Subsequent Scan FINDINGS: Mean SUV mediastinum: 1.41 Mean SUV liver: 2.16 SKULL BASE AND NECK: No suspicious new recurrent hypermetabolic enlarged lymph nodes. CHEST, MEDIASTINUM, AND HILAR REGION: Recurrent hypermetabolic right axillary lymph nodes including d ominant right axillary lymph node measuring 1.8 x 1.4 cm axial image 84, max SUV is 8.13. No new left axillary or suspicious thoracic adenopathy. Mild muscular uptake bilateral shoulder regio n may reflect inflammatory change. ABDOMEN AND PELVIS: Recurrent retroperitoneal hypermetabolic adenopathy below level of renal veins mid to lower abdomen e xtending into the iliac bifurcation, for reference just past bifurcation there is left common iliac lymph node measuring 1.3 x 0.8 cm axial image 170, max SUV is 7.46. New left lateral posterior hypermetabolic soft tissue mass measuring 2.9 x 1.3 cm, max SUV is 11.00. There is new large heterogeneous the right gluteal posterior pelvic mass just below sacroiliac joint measuring roughly 6.9 x 4.7 cm axial image 201, max SUV is 13.16. Intrapelvic extension noted. There are bilateral hypermetabolic groin lymph nodes including deep hypermetabolic right groin lymph nodes, for reference right groin lymph node measures 1.6 x 1.1 cm axial image 218, max SUV is 10.03. New posterior deep right thigh 2.1 x 1.7 cm hypermetabolic mass axial image 238, max SUV is 12.42. New posterior medial deep 3.2 x 2.1 cm hypermetabolic mass axial image 255, max SUV is 14.1. OSSEOUS STRUCTURES: No new areas of suspicious hypermetabolic uptake. OTHER CT: Stable right subclavian Mediport catheter. Moderate calcified plaque left carotid bulb leve l redemonstrated. Evidence of old granulomatous disease with calcified left hilar lymph nodes and medial calcified 1 cm left lower lobe nodule or granuloma. Cholecystectomy clips. Multilevel facet arthropathy in the lower lumbar spine. Slight scoliotic curva ture. IMPRESSION: Recurrent active lymphoma above and below diaphragm as detailed above.
== END | disposition home or self-care (01) ==
LOC: RADPETMAIN 07:09
PROVIDERS: ATTEND Internal Medicine Hematology & Oncology
DX: C85.88 Other specified types of non-Hodgkin lymphoma, lymph nodes of multiple sites (principal); Z92.21 Personal history of antineoplastic chemotherapy
CPT/HCPCS: 78815; A9552

== ENCOUNTER 2019-12-28 07:02 | Day surgery (SDC) | payer MEDICARE, OTHER ==
[2019-12-23 15:29] VITALS: BMI 20.7
[~2019-12-28 07:02] MED LIST changes: +LIDOCAINE 1% (10MG/ML) FOR IV START INTRADERMA PRN; -ONDANSETRON 4 MG/2 ML VIAL IVP ONE; +Pre Op ABX Message 1 EACH MISC MISCELLANE ONE
[2019-12-28 07:47] VITALS: TEMP 98
--- NOTE | 2019-12-28 08:48 | P.GSHP ---
History of Present Illness H&P Date: 12/28/19 Chief Complaint: History of lymphoma This a 64-year-old female presents today for excision of a left flank mass. Patient is a. History of lymphoma. Patient developed a tender mass in her left flank. She presents today for excision. Past Medical History Past Medical History: Atrial Fibrillation, Cancer, Chest Pain / Angina, Eye Disorder, Hyperlipidemia, Hypertension, Liver Disease, Musculoskeletal Disorder, Pneumonia, Renal Disease Additional Past Medical History / Comment(s): 2006 NHL (lymphoma) - no tx needed, then returned 10/2018, received 2 rounds chemo, last in 05/2019 (ICE chemo), Hepatitis C-tx 2019 & told cured, DDD, Chronic LBP/cervical pain (Dr. Cummins for pain), migraines, decreased renal function w/ steroid/nsaid use. Hx glaucoma. Varicose veins. Gallstones. In PT for strength. Port in Rt subclavian. CURRENTLY HAS 5 MASSES-1 LT SIDE-1 RT SIDE-BILAT TAILBONE, 1 RT UPPER THIGH. STATES LT SIDE IS MOST PAINFUL History of Any Multi-Drug Resistant Organisms: None Reported Past Surgical History: Cholecystectomy, Heart Catheterization, Orthopedic Surgery Additional Past Surgical History / Comment(s): 2006 R groin lump biopsy, 10/28/18 Exploratory laparotomy w/ tubo-ovarian cancer/R salpingo-oophorectomy/removal pelvic lymph nodes, 12/03/18 Port a cath, 12/20/18 cardiac cath-normal/CHIQUIS, 2015 cardiac cath, vaginal polypectomy, R shoulder arthroscopy/rotator cuff repair x2, R knee arthroscopy, ORIF R ankle with plates/screws. PORT A CATH Past Anesthesia/Blood Transfusion Reactions: No Reported Reaction Smoking Status: Current every day smoker - Past Family History Mother Family Medical History: COPD, Coronary Artery Disease (CAD), Myocardial Infarction ([place]), Seizure Disorder Additional Family Medical History / Comment(s): Mother had a [place] at the age of 76yrs. She from fall/facial injury and aspirated blood. Father Family Medical History: Coronary Artery Disease (CAD), Seizure Disorder Additional Family Medical History / Comment(s): Father had a seizure while driving resulting in a MVA in which he . Medications and Allergies Home Medications Medication Instructions Recorded Confirmed Type Sertraline [Zoloft] 100 mg PO DAILY 06/05/14 12/23/19 History Ascorbic Acid [Vitamin C] 500 mg PO DAILY 06/07/14 12/28/19 History Metoprolol Tartrate [Lopressor] 25 mg PO BID 10/08/15 12/23/19 History Biotin 5 mg PO DAILY 10/25/18 12/28/19 History Simvastatin [Zocor] 40 mg PO HS 10/25/18 12/28/19 History clonazePAM [KlonoPIN] 0.5 mg PO BID PRN 10/25/18 12/28/19 History Calcium Carbonate/Vitamin D3 1 cap PO BID 12/01/18 12/28/19 History [Calcium 600-Vit D3 500 Softgel] lisinopriL [Zestril] 2.5 mg PO DAILY 12/01/18 12/23/19 History Ondansetron HCl [Zofran] 4 mg PO Q4H PRN 12/15/18 12/28/19 History Amitriptyline HCl [Elavil] 25 mg PO HS 01/24/19 12/28/19 History Cetirizine HCl [Zyrtec] 10 mg PO DAILY PRN 01/24/19 12/28/19 History Cyclobenzaprine [Flexeril] 10 mg PO TID PRN 01/24/19 12/28/19 History Omeprazole 20 mg PO BID PRN 01/24/19 12/28/19 History Sertraline HCl [Zoloft] 50 mg PO DAILY 01/24/19 12/23/19 History traZODone HCL 50 mg PO HS PRN 01/24/19 12/28/19 History Vitamin C/Biotin [Hair, Skin and 1 tab PO DAILY 03/14/19 12/28/19 History Nails] oxyCODONE-APAP 10-325MG [Percocet 1 tab PO QID PRN 03/14/19 12/28/19 History 10-325 mg] Prochlorperazine [Compazine] 10 mg PO Q6H PRN #50 tab 03/17/19 12/28/19 Rx Sennosides [Senna] 8.6 mg PO BID PRN #100 tablet 03/17/19 12/28/19 Rx polyethylene glycoL 3350 [Miralax] 17 gm PO DAILY PRN #1 box 01/09/20 10/21/20 Rx Lidocaine-Prilocaine Cream [Emla 1 applic TOPICAL DIRECTED PRN 05/16/19 12/28/19 History Cream 2.5%/2.5%] Loratadine [Claritin] 10 mg PO DAILY 05/16/19 12/28/19 History oxyCODONE ER [OxyCONTIN] 20 - 30 mg PO Q12HR PRN 05/16/19 12/28/19 History Allergies Allergy/AdvReac Type Severity Reaction Status Date / Time NSAIDS (Non-Steroidal AdvReac Swelling, Verified 12/23/19 15:02 Anti-Inflamma "shuts kidneys down" Surgical - Exam Vital Signs Temp Pulse Resp BP Pulse Ox 98.0 F 79 16 105/55 97 12/28/19 07:45 12/28/19 07:45 12/28/19 07:45 12/28/19 07:45 12/28/19 07:45 - General well developed, well nourished, no distress - Eyes PERRL - ENT normal pinna - Neck no masses - Respiratory normal expansion - Cardiovascular Rhythm: regular - Abdomen Abdomen: soft, non tender - Integumentary 3 cm mass left flank Assessment and Plan Assessment: History of lymphoma. Left flank mass We'll perform excision.
[2019-12-28] MEDS ORDERED: fentaNYL (PF) 50 MCG/ML 2 ML AMP ONE (08:51)
[2019-12-28] MEDS ORDERED: PROPOFOL 10 MG/ML 20 ML VIAL IV ONE (08:51)
[2019-12-28] MEDS ORDERED: ePHEDrine SULFATE/0.9% NACL/PF 50 MG/5 ML SYRINGE IV ONE (08:51)
[2019-12-28] MEDS ORDERED: PHENYLEPHRINE-0.9% NACL SYG 1 MG/10 ML SYRINGE ONE (08:51)
[2019-12-28] MEDS ORDERED: MIDAZOLAM 2 MG/2 ML VIAL ONE (08:51)
[2019-12-28] MEDS ORDERED: BUPIVACAINE (PF) 0.5% 30 ML VIAL SQ ONE ×2 (09:13)
[2019-12-28] MEDS ORDERED: SODIUM CHLORIDE 0.9% 50 ML with ceFAZolin 1,000 MG IV ONE ×2 (09:16)
[2019-12-28] MEDS ORDERED: LACTATED RINGERS 1,000 ML IV ONE ×2 (09:40→09:48)
--- NOTE | 2019-12-28 09:42 | P.OP ---
Date of Procedure: 12/28/19 Preoperative Diagnosis: Lymphoma Postoperative Diagnosis: Lymphoma Procedure(s) Performed: Excision of left flank mass Anesthesia: TORY PATEL, local Surgeon: Fahad Brush Estimated Blood Loss (ml): 10 Pathology: other (Left flank mass suspicious for lymphoma) Condition: stable Disposition: PACU Description of Procedure: The patient's placed on the operative table in the lateral position. She received IV sedation. Her left flank was prepped and draped usual sterile fashion. The patient a 4 cm mass located left flank. The area was injected with 1% local Xylocaine. A skin sealant made. Then using left cautery and blunt sharp dissection the mass was excised. The mass. Have a glistening white appearance suggestive of lymphoma. The Bovie was used for hemostasis. The skin was then closed interrupted 3-0 Monocryl suture. Dermabond was applied. Patient tolerated the procedure well will was sent to recovery room in stable condition.
[2019-12-28 10:04] VITALS: RESP 16
[2019-12-28 10:05] VITALS: BP 108/49; PULSE 70
== END 2019-12-28 10:37 | disposition home or self-care (01) ==
LOC: OR 07:02
PROVIDERS: ATTEND Surgery
DX: C83.35 Diffuse large B-cell lymphoma, lymph nodes of inguinal region and lower limb (principal); R22.2 Localized swelling, mass and lump, trunk; I48.91 Unspecified atrial fibrillation; E78.5 Hyperlipidemia, unspecified; I10 Essential (primary) hypertension; K76.9 Liver disease, unspecified; Z87.01 Personal history of pneumonia (recurrent); N28.9 Disorder of kidney and ureter, unspecified; Z92.21 Personal history of antineoplastic chemotherapy; G89.29 Other chronic pain; M54.5 Low back pain; G43.909 Migraine, unspecified, not intractable, without status migrainosus; F32.9 Major depressive disorder, single episode, unspecified; K75.9 Inflammatory liver disease, unspecified; K21.9 Gastro-esophageal reflux disease without esophagitis; H40.9 Unspecified glaucoma; I83.90 Asymptomatic varicose veins of unspecified lower extremity; Z90.721 Acquired absence of ovaries, unilateral; Z95.9 Presence of cardiac and vascular implant and graft, unspecified; Z90.49 Acquired absence of other specified parts of digestive tract; Z98.890 Other specified postprocedural states; F17.200 Nicotine dependence, unspecified, uncomplicated; Z97.2 Presence of dental prosthetic device (complete) (partial); Z82.5 Family history of asthma and other chronic lower respiratory diseases; Z82.49 Family history of ischemic heart disease and other diseases of the circulatory system; Z82.0 Family history of epilepsy and other diseases of the nervous system; Z79.899 Other long term (current) drug therapy; Z88.6 Allergy status to analgesic agent
CPT/HCPCS: 21931; 88305; 88342; 88341; J2250; J1644; J1100; J0690; J3010; J2370; J2704

== ENCOUNTER 2020-01-11 15:47 | Inpatient (IN) | payer MEDICARE, OTHER ==
--- NOTE | 2020-01-11 16:52 | ED ---
Recheck HPI - General Chief Complaint: Recheck/Abnormal Lab/Rx Stated Complaint: kidney problems Time Seen by Provider: 01/11/20 16:00 Source: patient, RN notes reviewed, old records reviewed Mode of arrival: ambulatory Limitations: no limitations - History of Present Illness Initial Comments: this is a 64-year-old female for evaluation and follow-up lab values. Patient having worsening renal failure on outpatient basis has significant tumor burden secondary to lymphoma. Concern for tumor lysis syndrome on outpatient basis patient denying complaints of pain or other issues MD Complaint: abnormal lab -: unknown Returns Today for: Called Because of Abnormal Lab/Test, persistent/worsening pain related to initial visit Symptoms Since Prior Visit: worsening pain Context: called for abnormal lab result Associated Symptoms: none - Related Data Home Medications Medication Instructions Recorded Confirmed Sertraline [Zoloft] 100 mg PO DAILY 06/05/14 12/23/19 Metoprolol Tartrate [Lopressor] 25 mg PO BID 10/08/15 12/23/19 clonazePAM [KlonoPIN] 0.5 mg PO BID PRN 10/25/18 12/28/19 lisinopriL [Zestril] 2.5 mg PO DAILY 12/01/18 12/23/19 Ondansetron HCl [Zofran] 4 mg PO Q4H PRN 12/15/18 12/28/19 Amitriptyline HCl [Elavil] 25 mg PO HS 01/24/19 12/28/19 Omeprazole 20 mg PO BID PRN 01/24/19 12/28/19 Sertraline HCl [Zoloft] 50 mg PO DAILY 01/24/19 12/23/19 Vitamin C/Biotin [Hair, Skin and 1 tab PO DAILY 03/14/19 12/28/19 Nails] oxyCODONE-APAP 10-325MG [Percocet 1 tab PO QID PRN 03/14/19 12/28/19 10-325 mg] Lidocaine-Prilocaine Cream [Emla 1 applic TOPICAL DIRECTED PRN 05/16/19 12/28/19 Cream 2.5%/2.5%] oxyCODONE ER [OxyCONTIN] 20 - 30 mg PO Q12HR PRN 05/16/19 12/28/19 Cyclobenzaprine [Flexeril] 5 mg PO TID PRN 01/11/20 01/11/20 polyethylene glycoL 3350 [Miralax] 17 gm PO QAM PRN 01/11/20 01/11/20 Previous Rx's Medication Instructions Recorded Prochlorperazine [Compazine] 10 mg PO Q6H PRN #50 tab 03/17/19 Sennosides [Senna] 8.6 mg PO BID PRN #100 tablet 03/17/19 Allergies Allergy/AdvReac Type Severity Reaction Status Date / Time NSAIDS (Non-Steroidal AdvReac Swelling, Verified 01/11/20 15:57 Anti-Inflamma "shuts kidneys down" Review of Systems ROS Statement: Those systems with pertinent positive or pertinent negative responses have been documented in the HPI. ROS Other: All systems not noted in ROS Statement are negative. Past Medical History Past Medical History: Atrial Fibrillation, Cancer, Chest Pain / Angina, Eye Disorder, Hyperlipidemia, Hypertension, Liver Disease, Musculoskeletal Disorder, Pneumonia, Renal Disease Additional Past Medical History / Comment(s): 2006 NHL (lymphoma) - no tx needed, then returned 10/2018, received 2 rounds chemo, last in 05/2019 (ICE chemo), Hepatitis C-tx 2019 & told cured, DDD, Chronic LBP/cervical pain (Dr. Cummins for pain), migraines, decreased renal function w/ steroid/nsaid use. Hx glaucoma. Varicose veins. Gallstones. In PT for strength. Port in Rt subclavian. CURRENTLY HAS 5 MASSES-1 LT SIDE-1 RT SIDE-BILAT TAILBONE, 1 RT UPPER THIGH. STATES LT SIDE IS MOST PAINFUL History of Any Multi-Drug Resistant Organisms: None Reported Past Surgical History: Cholecystectomy, Heart Catheterization, Orthopedic Surgery Additional Past Surgical History / Comment(s): 2006 R groin lump biopsy, 10/28/18 Exploratory laparotomy w/ tubo-ovarian cancer/R salpingo-oophorectomy/removal pelvic lymph nodes, 12/03/18 Port a cath, 12/20/18 cardiac cath-normal/CHIQUIS, 2015 cardiac cath, vaginal polypectomy, R shoulder arthroscopy/rotator cuff repair x2, R knee arthroscopy, ORIF R ankle with plates/screws. PORT A CATH Past Anesthesia/Blood Transfusion Reactions: No Reported Reaction Past Psychological History: Depression Smoking Status: Current every day smoker Past Alcohol Use History: None Reported Past Drug Use History: None Reported - Past Family History Mother Family Medical History: COPD, Coronary Artery Disease (CAD), Myocardial Infarction ([place]), Seizure Disorder Additional Family Medical History / Comment(s): Mother had a [place] at the age of 76yrs. She from fall/facial injury and aspirated blood. Father Family Medical History: Coronary Artery Disease (CAD), Seizure Disorder Additional Family Medical History / Comment(s): Father had a seizure while driving resulting in a MVA in which he . General Exam Limitations: no limitations General appearance: alert, in no apparent distress Head exam: Present: atraumatic, normocephalic, normal inspection Eye exam: Present: normal appearance, PERRL, EOMI. Absent: scleral icterus, conjunctival injection, periorbital swelling ENT exam: Present: normal exam, mucous membranes moist Neck exam: Present: normal inspection. Absent: tenderness, meningismus, lymphadenopathy Respiratory exam: Present: normal lung sounds bilaterally. Absent: respiratory distress, wheezes, rales, rhonchi, stridor Cardiovascular Exam: Present: regular rate, normal rhythm, normal heart sounds. Absent: systolic murmur, diastolic murmur, rubs, gallop, clicks GI/Abdominal exam: Present: soft, normal bowel sounds. Absent: distended, tenderness, guarding, rebound, rigid Extremities exam: Present: normal inspection, full ROM, normal capillary refill. Absent: tenderness, pedal edema, joint swelling, calf tenderness Back exam: Present: normal inspection Neurological exam: Present: alert, oriented X3, CN II-XII intact Psychiatric exam: Present: normal affect, normal mood Skin exam: Present: warm, dry, intact, normal color. Absent: rash Course Vital Signs 01/11/20 15:54 Temperature 99.0 F Pulse Rate 72 Respiratory 20 Rate Blood Pressure 112/47 O2 Sat by Pulse 100 Oximetry - Reevaluation(s) Reevaluation #1: 01/11/20 19:06 medical record is reviewed Reevaluation #2: 01/11/20 19:06 patient is improved hydration here in the ER Reevaluation #3: 01/11/20 19:06 improve symptoms here in the ER - Consultations Consultation #1: spoke with Dr. ahn who agrees to admit the patient as well as DERRICK Medical Decision Making - Medical Decision Making 64 female for new onset renal failure weakness, arf, diffuse pain and significant tumor burden - Lab Data Lab Results 01/11/20 01/11/20 01/11/20 Range/Units 18:32 18:32 18:32 PT 9.4 (9.0-12.0) sec INR 0.9 (<1.2) APTT 23.5 (22.0-30.0) sec Plasma Lactic Acid Jayce 1.1 (0.7-2.0) mmol/L Urine Color Yellow Urine Appearance Clear (Clear) Urine pH 6.5 (5.0-8.0) Ur Specific [place] 1.016 (1.001-1.035) Urine Protein 2+ H (Negative) Urine Glucose (UA) 2+ H (Negative) Urine Ketones Negative (Negative) Urine Blood Negative (Negative) Urine Nitrite Negative (Negative) Urine Bilirubin Negative (Negative) Urine Urobilinogen <2.0 (<2.0) mg/dL Ur Leukocyte Esterase Negative (Negative) Urine RBC <1 (0-5) /hpf Urine WBC 1 (0-5) /hpf Hyaline Casts 4 H (0-2) /lpf Urine Mucus Rare H (None) /hpf - EKG Data -: EKG Interpreted by Me (KG shows sinus rhythm 64 IN 158 QRS 146 QTc 503) - Radiology Data Radiology results: report reviewed (CT ap and US patrice and bladder pending), image reviewed Disposition Clinical Impression: NHL (non-Hodgkin's lymphoma), ARF (acute renal failure) Disposition: ADMITTED IP TO THIS [facility] Condition: Fair Is patient prescribed a controlled substance at d/c from ED?: No Referrals: Frank Weller MD [Primary Care Provider] - 1-2 days
[2020-01-11] MEDS ORDERED: SODIUM CHLORIDE 0.9% 1,000 ML IV STA ×2 (17:08)
[2020-01-11 18:47] LABS: INR 0.9 (<1.2); Partial Thromboplastin Time 23.5 sec (22.0-30.0); Prothrombin Time 9.4 sec (9.0-12.0)
[2020-01-11 18:52] LABS: Appearance,Urine Clear (Clear); Bilirubin,Urine Negative (Negative); Blood,Urine Negative (Negative); Color,Urine Yellow; Glucose,Urine (UA) 2+ (Negative); Hyaline Casts,Urine 4 /lpf (0-2); Ketones,Urine Negative (Negative); Leukocyte Esterase,Urine Negative (Negative); Mucus,Urine Rare /hpf; Nitrite,Urine Negative (Negative); PH, Urine 6.5 (5.0-8.0); Protein,Urine 2+ (Negative); RBC,Urine <1 /hpf (0-5); Specific Gravity,Urine 1.016 (1.001-1.035); Urobilinogen,Urine <2.0 mg/dL (<2.0); WBC,Urine 1 /hpf (0-5)
[2020-01-11] MEDS ORDERED: SODIUM CHLORIDE 0.9% 1,000 ML IV ONE (19:00)
[2020-01-11 19:45] LABS: HCT 27.8 % (34.0-46.0); MCHC 32.2 g/dL (31.0-37.0); MCV 105.7 fL (80.0-100.0); Macrocytosis Moderate; RBC 2.63 m/uL (3.80-5.40); RDW 14.1 % (11.5-15.5)
[2020-01-11 19:49] LABS: Albumin 3.5 g/dL (3.5-5.0); Calcium 8.8 mg/dL (8.4-10.2); HGB 8.9 gm/dL (11.4-16.0); Potassium 4.5 mmol/L (3.5-5.1); Total Bilirubin 0.4 mg/dL (0.2-1.3); Total Protein 6.4 g/dL (6.3-8.2); Uric Acid 5.5 mg/dL (3.7-7.4)
--- NOTE | 2020-01-11 20:24 | US ---
EXAMINATION TYPE: US renals and bladder DATE OF EXAM: 01/11/2020 COMPARISON: CT CLINICAL HISTORY: pain. Pain. Patient has lymphoma. EXAM MEASUREMENTS: Right Kidney: 9.8 x 5.0 x 4.3 cm Left Kidney: 9.2 x 4.6 x 5.2 cm Right Kidney: Cortex appears thin. Prominent renal pelvis. Left Kidney: Pyramids appear prominent. Bladder: Appears anechoic. Bilateral Jets seen: Right jet seen by ultrasound at this time. IMPRESSION: 1. No suspicious acute changes renal ultrasound. 2. Left ureteral jet was not identified during this exam
[2020-01-11 20:28] LABS: Lymphocytes # (M) 0.24 k/uL (1.0-4.8); Monocytes # (M) 0.24 k/uL (0-1.0); Neutrophils # (M) 5.52 k/uL (1.3-7.7); Neutrophils % (M) 92 %; Nucleated Red Blood Cells 0 /100 WBC (0-0); Total Cells Counted 100
[2020-01-11 20:29] LABS: Platelet Count 80 k/uL (150-450)
--- NOTE | 2020-01-11 20:47 | CT ---
EXAMINATION TYPE: CT abdomen pelvis wo con DATE OF EXAM: 01/11/2020 COMPARISON: PET/CT 12/16/2019 INDICATION: Renal failure, CA DLP: 426.5 mGycm, Automated exposure control for dose reduction was used. CONTRAST: 0 mL of Isovue 300. Study performed without Oral Contrast TECHNIQUE: Axial images were obtained from above the diaphragm to the pubic rami in the axial plane a t 5 mm thick sections. Reconstructed images are reviewed on the computer in the coronal plane. FINDINGS: Limited CT sections are obtained the lung bases. 0 May be a calcification at the left lung base on t he initial image. Lung bases are otherwise clear.. CT ABDOMEN: There is a left flank mass measuring 7.7 x 4.0 cm. Series 201 image 56. Metastatic diseas e and hematoma could be considered. Liver: Normal Spleen: Couple of calcified granuloma within the spleen. Pancreas: Normal Adrenal glands: The adrenal glands are normal. Gallbladder: Surgically absent Kidneys: No masses are evident. No hydronephrosis is present. No cysts are present. No renal stone s are identified. Aorta: Vascular calcification is within the aorta. Inferior vena cava: Normal. CT PELVIS: There is a large mass through the obturator canal region measuring 16 x 7 cm in size. This may have extension into the perirectal space. Loops of bowel within the abdomen and pelvis are normal. Study is performed without oral contrast limiting bowel evaluation. Few scattered diverticuli may be within the sigmoid colon. Appendix: Not identified. Urinary bladder: Normal. Genitourinary structures: Uterus appears normal. Adnexal regions are clear. Osseous structures: No suspicious lytic or sclerotic lesions. Lymphadenopathy: Bilateral inguinal adenopathy is evident. There may be some left inguinal adenopathy which is enlarged measuring 1.1 cm. Image 101 para-aortic and retrocaval adenopathy is evident. Retr ocrural adenopathy is evident. IMPRESSIONS: 1. Extensive soft tissue density through the right obturator canal and gluteal region. Smaller left flank mass is present. Findings are compatible with metastatic disease identified on PET/CT. 2. Extensive adenopathy present especially noted within the inguinal regions bilaterally
[2020-01-12 05:07] VITALS: RESP 16
--- NOTE | 2020-01-12 11:05 | US ---
EXAMINATION TYPE: US venous doppler duplex LE DATE OF EXAM: 01/12/2020 10:52 AM COMPARISON: NONE CLINICAL HISTORY: r/o blood clot, swelling. HX lymphoma; right leg swelling greater than right SIDE PERFORMED: Bilateral TECHNIQUE: The lower extremity deep venous system is examined utilizing real time linear array sonog korey with graded compression, doppler sonography and color-flow sonography. VESSELS IMAGED: Common Femoral Vein Deep Femoral Vein Greater Saphenous Vein * Femoral Vein Popliteal Vein Small Saphenous Vein * Proximal Calf Veins (* superficial vessels) Right Leg: Negative for DVT Left Leg: Negative for DVT Multiple groin lymph nodes are seen with largest right groin lymph node = 2.9 x 2.6 x 1.9cm and large st left groin lymph node = 2.6 x 1.9 x 1.5cm. IMPRESSION: 1. Grayscale, color doppler, spectral doppler imaging performed of the deep veins of the lower extrem ities. There is normal flow, compressibility, vascular waveforms. 2. Multiple lymph nodes are noted within the groin as measured above.
[2020-01-12] MEDS ORDERED: PROCHLORPERAZINE 10 MG TAB PO PRN (11:27)
[2020-01-12] MEDS ORDERED: CYCLOBENZAPRINE 5 MG TAB PO PRN (11:27)
[2020-01-12] MEDS ORDERED: PANTOPRAZOLE 40 MG TABLET PO PRN (11:27)
[2020-01-12] MEDS ORDERED: oxyCODONE-APAP 10-325MG 1 EACH TAB PO PRN (11:27)
[2020-01-12] MEDS ORDERED: polyethylene glycoL 3350 17 GM POWD.PACK PO PRN (11:27)
[2020-01-12] MEDS ORDERED: LORATADINE 10 MG TAB PO PRN (11:27)
[2020-01-12] MEDS ORDERED: SENNOSIDES 8.6 MG TAB PO PRN (11:27)
--- NOTE | 2020-01-12 12:45 | P.NPCON ---
History of Present Illness - Reason for Consult acute renal failure - History of Present Illness Reason for consultation: Acute kidney injury History of present illness: Patient is a 64-year-old female seen in consultation for acute kidney injury. Creatinine was as low as 1.0 as of 05/18/2019. From August through November 2019 creatinine has been in the range of 1.9-2.3. On admission was 3.67. She is currently maintained on normal saline at 100 mL an hour. Patient has history of non-Hodgkin's lymphoma and last had chemotherapy in May 2019. There is no evidence of recurrence and she is being followed by oncology. CAT scan revealed no evidence of hydronephrosis. Blood pressure has been on the lower side in the systolic 90s. She was on lisinopril which is currently held. Good urine outpu t. No hematuria or dysuria. No vomiting or diarrhea. Appetite is fair. Denies use of nonsteroidals. Denies family history of renal disease. She was sent to the hospital by her oncologist due to concern for acute renal failure as well as tumor lysis syndrome. Her uric acid was 5.5. Potassium level normal. Vital signs are stable. Blood pressure on the lower side. General: The patient appeared well nourished and normally developed. HEENT: Head exam is unremarkable. Neck is without jugular venous distension. LUNGS: Breath sounds decreased. HEART: Rate and Rhythm are regular. ABDOMEN: Soft, nontender. EXTREMITITES: No edema. Past Medical History Past Medical History: Atrial Fibrillation, Cancer, Chest Pain / Angina, Eye Disorder, Hyperlipidemia, Hypertension, Liver Disease, Musculoskeletal Disorder, Pneumonia, Renal Disease Additional Past Medical History / Comment(s): 2006 NHL (lymphoma) - no tx needed, then returned 10/2018, received 2 rounds chemo, last in 05/2019 (ICE chemo), Hepatitis C-tx 2019 & told cured, DDD, Chronic LBP/cervical pain (Dr. Cummins for pain), migraines, decreased renal function w/ steroid/nsaid use. Hx glaucoma. Varicose veins. Gallstones. Port in Rt subclavian. CURRENTLY HAS 5 MASSES-1 LT SIDE-1 RT SIDE-BILAT TAILBONE, 1 RT UPPER THIGH. STATES LT SIDE IS MOST PAINFUL History of Any Multi-Drug Resistant Organisms: None Reported Past Surgical History: Cholecystectomy, Heart Catheterization, Orthopedic Surgery Additional Past Surgical History / Comment(s): 2006 R groin lump biopsy, 10/28/18 Exploratory laparotomy w/ tubo-ovarian cancer/R salpingo-oophorectomy/removal pelvic lymph nodes, 12/03/18 Port a cath, 12/20/18 cardiac cath-normal/CHIQUIS, 2016 cardiac cath, vaginal polypectomy, R shoulder arthroscopy/rotator cuff repair x2, R knee arthroscopy, ORIF R ankle with plates/screws. PORT A CATH Past Anesthesia/Blood Transfusion Reactions: No Reported Reaction Past Psychological History: Depression Additional Psychological History / Comment(s): lives with spouse and 2 dogs. She used to work in medical coding/billing and factory work. Smoking Status: Current some day smoker Past Alcohol Use History: None Reported Additional Past Alcohol Use History / Comment(s): Smoking at age 14, up to 1 - 2 ppd, smoking occasional for 4 months Past Drug Use History: None Reported - Past Family History Mother Family Medical History: COPD, Coronary Artery Disease (CAD), Myocardial Infarction (AL), Seizure Disorder Additional Family Medical History / Comment(s): Mother had a AL at the age of 76yrs. She from fall/facial injury and aspirated blood. Father Family Medical History: Coronary Artery Disease (CAD), Seizure Disorder Additional Family Medical History / Comment(s): Father had a seizure while driving resulting in a MVA in which he . Medications and Allergies Home Medications Medication Instructions Recorded Confirmed Type Sertraline [Zoloft] 100 mg PO DAILY 06/05/14 01/11/20 History Metoprolol Tartrate [Lopressor] 25 mg PO BID 10/08/15 01/11/20 History clonazePAM [KlonoPIN] 0.5 mg PO BID PRN 10/25/18 01/11/20 History lisinopriL [Zestril] 2.5 mg PO DAILY 12/01/18 01/11/20 History Ondansetron HCl [Zofran] 4 mg PO Q4H PRN 12/15/18 01/11/20 History Amitriptyline HCl [Elavil] 25 mg PO HS 01/24/19 01/11/20 History Omeprazole 20 mg PO DAILY PRN 01/24/19 01/11/20 History Sertraline HCl [Zoloft] 50 mg PO DAILY 01/24/19 01/11/20 History Vitamin C/Biotin [Hair, Skin and 1 tab PO DAILY 03/14/19 01/11/20 History Nails] oxyCODONE-APAP 10-325MG [Percocet 1 tab PO QID PRN 03/14/19 01/11/20 History 10-325 mg] Prochlorperazine [Compazine] 10 mg PO Q6H PRN #50 tab 03/17/19 01/11/20 Rx Sennosides [Senna] 8.6 mg PO BID PRN #100 tablet 03/17/19 01/11/20 Rx Lidocaine-Prilocaine Cream [Emla 1 applic TOPICAL DIRECTED PRN 05/16/19 01/11/20 History Cream 2.5%/2.5%] oxyCODONE ER [OxyCONTIN] 20 mg PO Q12HR PRN 05/16/19 01/11/20 History Cyclobenzaprine [Flexeril] 5 mg PO TID PRN 01/11/20 01/11/20 History Dexamethasone [Decadron] See Taper PO DIRECTED 01/11/20 01/11/20 History Fexofenadine HCl [Rolanda Allergy] 30 mg PO DAILY PRN 01/11/20 01/11/20 History Fluticasone Propionate [Flonase 1 spray EA NOSTRIL DAILY PRN 01/11/20 01/11/20 History Allergy Relief] [employer] Brand Sinus Med (Unknown 1 tab PO DAILY PRN 01/11/20 01/11/20 History Strength) polyethylene glycoL 3350 [Miralax] 17 gm PO QAM PRN 01/11/20 01/11/20 History Allergies Allergy/AdvReac Type Severity Reaction Status Date / Time NSAIDS (Non-Steroidal AdvReac Swelling, Verified 01/11/20 15:57 Anti-Inflamma "shuts kidneys down" Physical Exam Vitals: Vital Signs Temp Pulse Pulse Resp BP BP Pulse Ox 01/12/20 11:16 97.6 F 72 16 108/49 99 01/12/20 05:06 98.5 F 69 16 90/52 97 01/12/20 00:54 98.3 F 66 18 91/54 97 01/12/20 00:00 64 18 99/48 97 01/11/20 23:00 60 18 94/44 98 01/11/20 22:58 97.7 F 73 16 95/45 99 01/11/20 21:00 66 20 99/63 98 01/11/20 20:43 61 18 98/60 97 01/11/20 19:00 67 20 97/44 97 01/11/20 15:54 99.0 F 72 20 112/47 100 Intake and Output 01/11/20 01/12/20 01/12/20 22:59 06:59 14:59 Other: Voiding Method Toilet Toilet # Voids 2 Weight 61.235 kg Results - Lab Results Most recent lab results Calcium 8.8 mg/dL (8.4-10.2) 01/11/20 18:32 01/11/20 18:32 01/11/20 18:32 Assessment and Plan Plan: Assessment: 1. Acute kidney injury mostly prerenal secondary to hypotension further worsened with the use of lisinopril. Doubt TLS. Creatinine 3.67 on admission. Creatinine was as low as 1.0 as of 05/18/2019. Since then has been in the range of 1.9-2.3. No evidence of hydronephrosis noted. 2. Recurrence of non-Hodgkin's lymphoma. Oncology following. 3. Benign hypertension. Blood pressure on the lower side currently. 4. Anemia. Rule out iron deficiency. 5. Proteinuria. This can be nonspecific in the setting of acute kidney injury. Plan: Maintain normal saline at 100 mL an hour. Check labs today. Check a.m. cortisol level. Continue to hold lisinopril. Avoid nephrotoxins. Check iron studies. Continue to monitor renal function and urine output. Repeat UA and check UPC. Thank you for the consultation. I will continue to follow the patient with you during her hospital stay.
[2020-01-12 12:46] LABS: ALT 9 U/L (4-34); AST 25 U/L (14-36); African American GFR (CKD) 17 (>60 ml/min/1.73 sqM); Albumin 3.5 g/dL (3.5-5.0); Albumin/Globulin Ratio 1.3; Alkaline Phosphatase 85 U/L (38-126); Anion Gap 4 mmol/L; Blood Urea Nitrogen 32 mg/dL (7-17); Calcium 8.5 mg/dL (8.4-10.2); Carbon Dioxide 22 mmol/L (22-30); Chloride 110 mmol/L (98-107); Globulin 2.8 g/dL; Glucose 126 mg/dL (74-99); Magnesium 2.6 mg/dL (1.6-2.3); Non-African American GFR(CKD) 15 (>60 ml/min/1.73 sqM); Potassium 3.7 mmol/L (3.5-5.1); Sodium 136 mmol/L (137-145); Total Bilirubin 0.4 mg/dL (0.2-1.3); Total Protein 6.3 g/dL (6.3-8.2)
[2020-01-12] MEDS: SERTRALINE 100 MG TAB PO SCH (13:36)
[2020-01-12] MEDS: METOPROLOL TARTRATE 25 MG TAB PO SCH ×2 (13:36→20:36)
[2020-01-12] MEDS: SERTRALINE 50 MG TAB PO SCH (13:36)
[2020-01-12] MEDS: oxyCODONE ER 20 MG TAB.ER.12H PO PRN (13:41)
[2020-01-12] MEDS: clonazePAM 0.5 MG TAB PO PRN (13:41)
[2020-01-12 13:45] LABS: Appearance,Urine Clear (Clear); Bacteria,Urine Rare /hpf; Bilirubin,Urine Negative (Negative); Blood,Urine Trace (Negative); Color,Urine Light Yellow; Glucose,Urine (UA) 2+ (Negative); Ketones,Urine Negative (Negative); Leukocyte Esterase,Urine Negative (Negative); Mucus,Urine Rare /hpf; Nitrite,Urine Negative (Negative); PH, Urine 6.5 (5.0-8.0); Protein,Urine 1+ (Negative); RBC,Urine 1 /hpf (0-5); Urobilinogen,Urine <2.0 mg/dL (<2.0); WBC,Urine <1 /hpf (0-5)
[2020-01-12] MEDS: SODIUM CHLORIDE 0.9% 1,000 ML IV SCH ×2 (15:49→20:38)
--- NOTE | 2020-01-12 18:14 | P.CONS ---
History of Present Illness - Reason for Consult Consult date: 01/12/20 relapsed non-Hodgkin's lymphoma, NOAH - History of Present Illness Ms Quiroz is a pleasant white female, who was referred here to establish care for a history of non-Hodgkin's lymphoma. The patient states that she had felt a lump in her right groin in 2006. This was the size of a grape. She was living in the [place] area at that time. She had a biopsy at [facility] ( now [facility]) at the time. She states that she was told that it was a non-Hodgkin's lymphoma, and she had lymph nodes both above and below the diaphragm. She was seen by Dr. Gonzalez, and observation was recommended. However she did not follow-up since 2007 and move to the [facility]. She has not had any oncology care since. The patient had been complaining of having some discomfort in the left upper chest which was overall nonspecific. She had a mammogram on 04/24/17 which revealed an asymmetric density, with a follow-up ultrasound recommended. She became concerned, given this new finding, about her prior history due to which she was referred here. She had a CT CAP and labs done, which were negative. Pathology was requested from [facility]- [facility], but has not been received. Her US of the breast was negative, and a 6 mth f/u was recommended She had a fall in 02/23 , with a concussion, and recovered over 2-3 mths. No records were available from [facility] , likely due to the time elapsed As the patient was asymptomatic, it was decided to place her on observation The patient presented in 10/25, complaining of new onset of abdominal pain, progressive over 7-10 days, mainly localized the right lower quadrant she had a CT scan of the abdomen and pelvis on 10/27/18 showing a mixed density mass in the right lower quadrant, with soft tissue density, felt to be related to phlegmon or abscess. There is some mild right-sided inguinal adenopathy that was unchanged. Borderline retroperitoneal lymph nodes are also unchanged. She underwent surgery on 10/28/18, with resection of the right ovary and right fallopian tube as well as pelvic lymph node biopsy. This showed evidence of high-grade B cell non-Hodgkin lymphoma in the pelvic lymph node. There is a benign ovarian fibroma and atrophic fallopian tube with associated lymphoid tissue with atypical lymphoproliferative process. Double hit/triple hit was subsequently ruled out as MYC rearrangement was negative The patient's PET scan showed multiple areas of uptake including left axilla, mediastinum, left breast, as well as well as multiple areas in the retroperitoneum, most prominently in the aortocaval region She was found to be hepatitis C positive. ECHO revealed an EF of 35 % She was seen by ID, and is to start antiviral rx in the near future. She had a cath by cardiology , which was negative and showed increase in EF to 45% She was thus started on CEOP alone, on 12/13/18 and is s/p 2 cycles. PEG-GCSF was added with C2 PET scan after C 2 showed improvement, but still persistent uptake in multi ple areas, including retropectoral, retroperitoneal, and pelvic. She was therefore switched to ICE and is s/p 6 cycles. Rituxan was added with C4, after anti viral treatment. Hep C RNA chelsie was only 33 after C 3. She completed her antiviral therapy in late 03/28, with subsequent labs showing undetectable levels 12/06/19: Patient presents for results of Ultrasound of abnormal lesions to buttocks, she now unfortnetley has discovered more palpable nodules. Left side and hip. as well as inguinal and Right Axilla Palpable and moveable. CKD on baseline, although has been trending up. Increasing B symptom complaints as well as one mass sitting at sciatic nerve which is making difficult to sleep or sit as patient states it "clenches and zaps" the patient had excisional biopsy of the left gluteal mass on 12/28/19. This showed diffuse large B-cell lymphoma. PET scan showed recurrence in the right axilla, retroperitoneum, right inguinal as well as right upper thigh soft tissue. She was seen in the office on 01/10/20, and the biopsy results and PET scan results discussed with her. Given her history of fairly quick relapse after aggressive combination regimens, as well as other underlying medical problems. [facility] Labs were drawn in the office and were negative. However creatinine was noted to have increased to 3.9 from a baseline of 2.2. The patient was therefore contacted and asked to come into the ER. Case was discussed with the ER physician and the patient was admitted for further management. She denied any diarrhea. She states that oral intake has been generally decreased for the past few weeks, but she thinks that she has been drinking enough. She has not been on any diuretics and did not think that urine output was more than usual. No exposure to CT dye. Review of Systems Constitutional: Reports anorexia, Reports weakness Eyes: denies blurred vision, denies pain Ears: deny: decreased hearing, ear discharge, earache, tinnitus Ears, nose, mouth and throat: Denies headache, Denies sore throat Cardiovascular: Reports decreased exercise tolerance Respiratory: Denies cough Gastrointestinal: Denies abdominal pain, Denies diarrhea, Denies nausea, Denies vomiting Genitourinary: Denies dysuria, Denies hematuria Menstruation: Reports postmenopausal Musculoskeletal: Reports as per HPI, Reports muscle weakness Integumentary: Reports lesions (subcutaneous nodules bilateral lower flanks) Neurological: Reports weakness Psychiatric: Denies anxiety, Denies depression Endocrine: Reports fatigue, Reports weight change Hematologic/Lymphatic: Reports as per HPI, Reports lymphadenopathy Past Medical History Past Medical History: Atrial Fibrillation, Cancer, Chest Pain / Angina, Eye Disorder, Hyperlipidemia, Hypertension, Liver Disease, Musculoskeletal Disorder, Pneumonia, Renal Disease Additional Past Medical History / Comment(s): 2006 NHL (lymphoma) - no tx needed, then returned 10/2018, received 2 rounds chemo, last in 05/2019 (ICE chemo), Hepatitis C-tx 2019 & told cured, DDD, Chronic LBP/cervical pain (Dr. Cummins for pain), migraines, decreased renal function w/ steroid/nsaid use. Hx glaucoma. Varicose veins. Gallstones. Port in Rt subclavian. CURRENTLY HAS 5 MASSES-1 LT SIDE-1 RT SIDE-BILAT TAILBONE, 1 RT UPPER THIGH. STATES LT SIDE IS MOST PAINFUL History of Any Multi-Drug Resistant Organisms: None Reported Past Surgical History: Cholecystectomy, Heart Catheterization, Orthopedic Surgery Additional Past Surgical History / Comment(s): 2006 R groin lump biopsy, 10/28/18 Exploratory laparotomy w/ tubo-ovarian cancer/R salpingo-oophorectomy/removal pelvic lymph nodes, 12/03/18 Port a cath, 12/20/18 cardiac cath-normal/CHIQUIS, 2016 cardiac cath, vaginal polypectomy, R shoulder arthroscopy/rotator cuff repair x2, R knee arthroscopy, ORIF R ankle with plates/screws. PORT A CATH Past Anesthesia/Blood Transfusion Reactions: No Reported Reaction Past Psychological History: Depression Additional Psychological History / Comment(s): lives with spouse and 2 dogs. 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 Smoking Status: Current some day smoker Past Alcohol Use History: None Reported Additional Past Alcohol Use History / Comment(s): Smoking at age 14, up to 1 - 1 1/2 ppd, smoking occasional for 4 months Past Drug Use History: None Reported - Past Family History Mother Family Medical History: COPD, Coronary Artery Disease (CAD), Myocardial Infarction (DC), Seizure Disorder Additional Family Medical History / Comment(s): Mother had a DC at the age of 76yrs. She from fall/facial injury and aspirated blood. Father Family Medical History: Coronary Artery Disease (CAD), Seizure Disorder Additional Family Medical History / Comment(s): Father had a seizure while driving resulting in a MVA in which he . Medications and Allergies Home Medications Medication Instructions Recorded Confirmed Type Sertraline [Zoloft] 100 mg PO DAILY 06/05/14 01/11/20 History Metoprolol Tartrate [Lopressor] 25 mg PO BID 10/08/15 01/11/20 History clonazePAM [KlonoPIN] 0.5 mg PO BID PRN 10/25/18 01/11/20 History lisinopriL [Zestril] 2.5 mg PO DAILY 12/01/18 01/11/20 History Ondansetron HCl [Zofran] 4 mg PO Q4H PRN 12/15/18 01/11/20 History Amitriptyline HCl [Elavil] 25 mg PO HS 01/24/19 01/11/20 History Omeprazole 20 mg PO DAILY PRN 01/24/19 01/11/20 History Sertraline HCl [Zoloft] 50 mg PO DAILY 01/24/19 01/11/20 History Vitamin C/Biotin [Hair, Skin and 1 tab PO DAILY 03/14/19 01/11/20 History Nails] oxyCODONE-APAP 10-325MG [Percocet 1 tab PO QID PRN 03/14/19 01/11/20 History 10-325 mg] Prochlorperazine [Compazine] 10 mg PO Q6H PRN #50 tab 03/17/19 01/11/20 Rx Sennosides [Senna] 8.6 mg PO BID PRN #100 tablet 03/17/19 01/11/20 Rx Lidocaine-Prilocaine Cream [Emla 1 applic TOPICAL DIRECTED PRN 05/16/19 01/11/20 History Cream 2.5%/2.5%] oxyCODONE ER [OxyCONTIN] 20 mg PO Q12HR PRN 05/16/19 01/11/20 History Cyclobenzaprine [Flexeril] 5 mg PO TID PRN 01/11/20 01/11/20 History Dexamethasone [Decadron] See Taper PO DIRECTED 01/11/20 01/11/20 History Fexofenadine HCl [Rolanda Allergy] 30 mg PO DAILY PRN 01/11/20 01/11/20 History Fluticasone Propionate [Flonase 1 spray EA NOSTRIL DAILY PRN 01/11/20 01/11/20 History Allergy Relief] [employer] Brand Sinus Med (Unknown 1 tab PO DAILY PRN 01/11/20 01/11/20 History Strength) polyethylene glycoL 3350 [Miralax] 17 gm PO QAM PRN 01/11/20 01/11/20 History Allergies Allergy/AdvReac Type Severity Reaction Status Date / Time NSAIDS (Non-Steroidal AdvReac Swelling, Verified 01/11/20 15:57 Anti-Inflamma "shuts kidneys down" Physical Exam Vitals: Vital Signs Temp Pulse Pulse Resp BP BP Pulse Ox 01/12/20 11:16 97.6 F 72 16 108/49 99 01/12/20 05:06 98.5 F 69 16 90/52 97 01/12/20 00:54 98.3 F 66 18 91/54 97 01/12/20 00:00 64 18 99/48 97 01/11/20 23:00 60 18 94/44 98 01/11/20 22:58 97.7 F 73 16 95/45 99 01/11/20 21:00 66 20 99/63 98 01/11/20 20:43 61 18 98/60 97 01/11/20 19:00 67 20 97/44 97 01/11/20 15:54 99.0 F 72 20 112/47 100 Intake and Output 01/11/20 01/12/20 01/12/20 22:59 06:59 14:59 Other: Voiding Method Toilet Toilet # Voids 2 Weight 61.235 kg - Constitutional General appearance: no acute distress - EENT Eyes: EOMI, PERRLA ENT: hearing grossly normal, normal oropharynx - Neck Neck: no lymphadenopathy Thyroid: bilateral: normal size - Respiratory Respiratory: bilateral: CTA - Cardiovascular Rhythm: regular Heart sounds: normal: S1, S2 - Gastrointestinal General gastrointestinal: normal bowel sounds, soft - Integumentary nodular lesions in the skin, bilateral lower flank/upper buttock area at least 3-4 on the right, and 2-3 on the left - Neurologic Neurologic: CNII-XII intact - Musculoskeletal right lower extremity 2+ edema Musculoskeletal: generalized weakness, strength equal bilaterally - Psychiatric Psychiatric: A&O x's 3, appropriate affect Bilateral inguinal adenopathy, mostly confluent, more prominent on the right versus left Results CBC & Chem 7: 01/11/20 18:32 01/12/20 11:51 Labs: Abnormal Lab Results - Last 24 Hours (Table) 01/11/20 01/11/20 01/11/20 Range/Units 18:32 18:32 18:32 RBC 2.63 L (3.80-5.40) m/uL Hgb 8.9 L D (11.4-16.0) gm/dL Hct 27.8 L (34.0-46.0) % MCV 105.7 H (80.0-100.0) fL Plt Count 80 L (150-450) k/uL Lymphocytes # (Manual) 0.24 L (1.0-4.8) k/uL Sodium 135 L (137-145) mmol/L Chloride (98-107) mmol/L BUN 36 H (7-17) mg/dL Creatinine 3.67 H (0.52-1.04) mg/dL Glucose 142 H (74-99) mg/dL Magnesium (1.6-2.3) mg/dL Lactate Dehydrogenase 703 H (313-618) U/L Urine Protein 2+ H (Negative) Urine Glucose (UA) 2+ H (Negative) Hyaline Casts 4 H (0-2) /lpf Urine Mucus Rare H (None) /hpf 01/12/20 Range/Units 11:51 RBC (3.80-5.40) m/uL Hgb (11.4-16.0) gm/dL Hct (34.0-46.0) % MCV (80.0-100.0) fL Plt Count (150-450) k/uL Lymphocytes # (Manual) (1.0-4.8) k/uL Sodium 136 L (137-145) mmol/L Chloride 110 H (98-107) mmol/L BUN 32 H (7-17) mg/dL Creatinine 3.11 H (0.52-1.04) mg/dL Glucose 126 H (74-99) mg/dL Magnesium 2.6 H (1.6-2.3) mg/dL Lactate Dehydrogenase (313-618) U/L Urine Protein (Negative) Urine Glucose (UA) (Negative) Hyaline Casts (0-2) /lpf Urine Mucus (None) /hpf CT scan - abdomen: report reviewed CT scan - pelvis: report reviewed US - abdomen: report reviewed Assessment and Plan (1) ARF (acute renal failure) Narrative/Plan: The patient does have known chronic kidney disease with baseline creatinine usually in the low 2 range. Labs done in the office showed new elevation of creatinine into the high 3 range. She has been admitted for further workup. At this time. Etiology is not clear. Imaging does not show any obstruction. While oral intake has been diminished. She claims adequate fluid intake. She has not had exposure to any medication or CT dye that could cause kidney injury. Labs do not support evidence of spontaneous tumor lysis - IV hydration - Nephrology consult - Await nephrology input. If workup is otherwise negative, and creatinine does not improve with hydration, then we may need to consider additional workup such as renal biopsy to rule out paraneoplastic processes such as membranous GN. Current Visit: Yes Status: Acute Code(s): N17.9 - ACUTE KIDNEY FAILURE, UNSPECIFIED SNOMED Code(s): 84909869 (2) NHL (non-Hodgkin's lymphoma) Narrative/Plan: Diagnostic and therapeutic circumstances as noted in the HPI. The patient unfortunately has progressive recurrent disease, which has started to progress within 6 months after completing aggressive salvage treatment with R-ICE. Given her other medical issues, treatment options may be limited. Patient has been referred to [facility] for an opinion. She will hopefully be able to follow- up thereafter discharge. 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 Currently the drop is felt to be due to progressive lymphoma. Onset of a safe range. Continue to monitor with supportive measures as needed Current Visit: No Status: Acute Priority: Low Code(s): D75.89 - OTHER SPECIFIED DISEASES OF BLOOD AND BLOOD-FORMING ORGANS SNOMED Code(s): 26312573 Plan: Check Dopplers of lower extremity, in view of right lower extremity swelling. If this is negative, the patient was advised that the swelling is most likely due to obstruction from large right-sided pelvic maria m mass
[2020-01-12 19:25] LABS: Creatinine,Urine Random 66.3 mg/dL; Protein/Creatinine Ratio,Urine 1.478
[2020-01-12 20:31] LABS: % Iron Saturation 20.95 (12.00-45.00)
[2020-01-12] MEDS: AMITRIPTYLINE HCL 25 MG TAB PO SCH (20:34)
--- NOTE | 2020-01-12 20:53 | P.HPIM ---
History of Present Illness H&P Date: 01/12/20 Chief Complaint: Lumps in the body Consultation: This is a very pleasant 64-year-old patient of Dr. Weller. Rather extensive medical history. Patient initially diagnosed as a lump in the right groin in 2016 had a biopsy done at [facility] and had a diagnosis of non- Hodgkin's lymphoma. Decision was made to follow with observation. She did not follow-up for the same. She had a possible breast lump ultrasound of the breast was negative. In October 2018 she had new abdominal pain and computed tomography scan showed a mass in the right lower quadrant. Along with adenopathy. She underwent resection of the right ovary and right fallopian tube and pelvic lymph node biopsy was carried out. 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 PET scan that showed multiple areas of uptake including the left axilla. PET scan showed areas of multiple uptake including left axilla, mediastinum, left breast, multiple areas in the retro-peritoneal.. She was hepatitis C positive. 2-D echo showed EF of 45%. She also had a ca rdiac catheterization in October 2018 came back to be negative. Patient was started with chemotherapy. High-grade B-cell non-Hodgkin's lymphoma. hepatitis C has become negative. Patient was treated with rounds of chemotherapy. PET scan did show improvement but still showed persistent uptake. Patient of recent has noticed to have lumps in the body. This was biopsied. Came back to confirm lymphoma. Also patient showed worsening renal function. Sent into the ER. Appetite is okay. No fever. Did discuss get bouts of both perspiration. Review of systems: GEN.: Some weight loss, perspiration EYES: None HEENT: None NECK: None RESPIRATORY: None CARDIOVASCULAR: None GASTROINTESTINAL: None GENITOURINARY: None MUSCULOSKELETAL: Some chronic low back pain LYMPHATICS: Lumps found an different parts of the body. HEMATOLOGICAL: None PSYCHIATRY: Anxiety NEUROLOGICAL: None Past medical history to include: High-grade B-cell non-Hodgkin's lymphoma, hepatitis C, cardiomyopathy EF 45% at rial fibrillation, hypertension, hyperlipidemia chronic low back pain. She follows with Dr. 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 Alcohol occasionally Physical examination: VITAL SIGNS: 97.6, 72, 16, 108/49, 99% room air GENERAL: BMI 22.5, sitting up in bed. Patient has smoked mass of different sizes lower back right axilla and groin area EYES: Pupils equal. Conjunctiva pale. HEENT: External appearance of nose and ears normal, oral cavity normal. Loss of scalp hair NECK: JVD not raised; masses not palpable. HEART: First and second heart sounds are normal; no edema. LUNGS: Respiratory rate normal; decreased breath sounds. ABDOMEN: Soft, non- tenderness, liver spleen not palpable, no masses palpable. PSYCH: Alert and oriented x3; mood and affect normal LYMPHATICS: lymph nodes palpable in the groin and the right axilla. NEUROLOGICAL: Cranial nerves grossly intact, power and sensation grossly intact INVESTIGATIONS, reviewed in the clinical context: White count 6 hemoglobin 8.9 platelets 80 bun 36 creatinine 3.67. Repeat this morning 3.11 Ultrasound venous Doppler lower extremity-multiple lymph nodes in the groin. No DVT. Computed tomography scan of the abdomen-extensive soft tissue density through the right obturator canal and due to region. Compatible with metastatic disease. Extensive adenopathy. Especially in the inguinal area. Previous testing: Creatinine was 2.3 on November 10 Assessment: -High-grade B-cell Non-Hodgkin's lymphoma for -received few cycles of chemotherapy. Now presented with relapse. With positive PET scan. And confirmed on the lymph node biopsy. -Acute kidney injury. Cannot rule out chronic component. Started to improve with hydration. -Hepatitis C-treated -Idiopathic Cardiomyopathy EF 35-40% -Essential hypertension -Hyperlipidemia -Bicytopenia likely from chemotherapy -Chronic nicotine dependence patient cigarette smoker Plan: Patient started IV fluids. Consultation made to nephrology, oncology. Hold off any renal offensive medications. Discussed with the patient. Past Medical History Past Medical History: Atrial Fibrillation, Cancer, Chest Pain / Angina, Eye Disorder, Hyperlipidemia, Hypertension, Liver Disease, Musculoskeletal Disorder, Pneumonia, Renal Disease Additional Past Medical History / Comment(s): 2006 NHL (lymphoma) - no tx needed, then returned 10/2018, received 2 rounds chemo, last in 05/2019 (ICE chemo), Hepatitis C-tx 2019 & told cured, DDD, Chronic LBP/cervical pain (Dr. Cummins for pain), migraines, decreased renal function w/ steroid/nsaid use. Hx glaucoma. Varicose veins. Gallstones. Port in Rt subclavian. CURRENTLY HAS 5 MASSES-1 LT SIDE-1 RT SIDE-BILAT TAILBONE, 1 RT UPPER THIGH. STATES LT SIDE IS MOST PAINFUL History of Any Multi-Drug Resistant Organisms: None Reported Past Surgical History: Cholecystectomy, Heart Catheterization, Orthopedic Surgery Additional Past Surgical History / Comment(s): 2006 R groin lump biopsy, 10/28/18 Exploratory laparotomy w/ tubo-ovarian cancer/R salpingo-oophorectomy/removal pelvic lymph nodes, 12/03/18 Port a cath, 12/20/18 cardiac cath-normal/CHIQUIS, 2015 cardiac cath, vaginal polypectomy, R shoulder arthroscopy/rotator cuff repair x2, R knee arthroscopy, ORIF R ankle with plates/screws. PORT A CATH Past Anesthesia/Blood Transfusion Reactions: No Reported Reaction Past Psychological History: Depression Additional Psychological History / Comment(s): lives with spouse and 2 dogs. She used to work in medical coding/billing and factory work. Smoking Status: Current some day smoker Past Alcohol Use History: None Reported Additional Past Alcohol Use History / Comment(s): Smoking at age 14, up to 1 - 1 1/2 ppd, smoking occasional for 4 months Past Drug Use History: None Reported - Past Family History Mother Family Medical History: COPD, Coronary Artery Disease (CAD), Myocardial Infarction ([place]), Seizure Disorder Additional Family Medical History / Comment(s): Mother had a [place] at the age of 76yrs. She from fall/facial injury and aspirated blood. Father Family Medical History: Coronary Artery Disease (CAD), Seizure Disorder Additional Family Medical History / Comment(s): Father had a seizure while driving resulting in a MVA in which he . Medications and Allergies Home Medications Medication Instructions Recorded Confirmed Type Sertraline [Zoloft] 100 mg PO DAILY 06/05/14 01/11/20 History Metoprolol Tartrate [Lopressor] 25 mg PO BID 10/08/15 01/11/20 History clonazePAM [KlonoPIN] 0.5 mg PO BID PRN 10/25/18 01/11/20 History lisinopriL [Zestril] 2.5 mg PO DAILY 12/01/18 01/11/20 History Ondansetron HCl [Zofran] 4 mg PO Q4H PRN 12/15/18 01/11/20 History Amitriptyline HCl [Elavil] 25 mg PO HS 01/24/19 01/11/20 History Omeprazole 20 mg PO DAILY PRN 01/24/19 01/11/20 History Sertraline HCl [Zoloft] 50 mg PO DAILY 01/24/19 01/11/20 History Vitamin C/Biotin [Hair, Skin and 1 tab PO DAILY 03/14/19 01/11/20 History Nails] oxyCODONE-APAP 10-325MG [Percocet 1 tab PO QID PRN 03/14/19 01/11/20 History 10-325 mg] Prochlorperazine [Compazine] 10 mg PO Q6H PRN #50 tab 03/17/19 01/11/20 Rx Sennosides [Senna] 8.6 mg PO BID PRN #100 tablet 03/17/19 01/11/20 Rx Lidocaine-Prilocaine Cream [Emla 1 applic TOPICAL DIRECTED PRN 05/16/19 1 03/12/19 History Cream 2.5%/2.5%] oxyCODONE ER [OxyCONTIN] 20 mg PO Q12HR PRN 05/16/19 01/11/20 History Cyclobenzaprine [Flexeril] 5 mg PO TID PRN 01/11/20 01/11/20 History Dexamethasone [Decadron] See Taper PO DIRECTED 01/11/20 01/11/20 History Fexofenadine HCl [Rolanda Allergy] 30 mg PO DAILY PRN 01/11/20 01/11/20 History Fluticasone Propionate [Flonase 1 spray EA NOSTRIL DAILY PRN 01/11/20 01/11/20 History Allergy Relief] [employer] Brand Sinus Med (Unknown 1 tab PO DAILY PRN 01/11/20 01/11/20 History Strength) polyethylene glycoL 3350 [Miralax] 17 gm PO QAM PRN 01/11/20 01/11/20 History Allergies Allergy/AdvReac Type Severity Reaction Status Date / Time NSAIDS (Non-Steroidal AdvReac Swelling, Verified 01/11/20 15:57 Anti-Inflamma "shuts kidneys down" Physical Exam Vitals: Vital Signs Temp Pulse Pulse Resp BP BP Pulse Ox 01/12/20 05:06 98.5 F 69 16 90/52 97 01/12/20 00:54 98.3 F 66 18 91/54 97 01/12/20 00:00 64 18 99/48 97 01/11/20 23:00 60 18 94/44 98 01/11/20 22:58 97.7 F 73 16 95/45 99 01/11/20 21:00 66 20 99/63 98 01/11/20 20:43 61 18 98/60 97 01/11/20 19:00 67 20 97/44 97 01/11/20 15:54 99.0 F 72 20 112/47 100 Intake and Output 01/11/20 01/12/20 01/12/20 22:59 06:59 14:59 Other: Voiding Method Toilet Toilet # Voids 2 Weight 61.235 kg Results CBC & Chem 7: 01/11/20 18:32 01/12/20 11:51 Labs: Abnormal Lab Results - Last 24 Hours (Table) 01/11/20 01/11/20 01/11/20 Range/Units 18:32 18:32 18:32 RBC 2.63 L (3.80-5.40) m/uL Hgb 8.9 L D (11.4-16.0) gm/dL Hct 27.8 L (34.0-46.0) % MCV 105.7 H (80.0-100.0) fL Plt Count 80 L (150-450) k/uL Lymphocytes # (Manual) 0.24 L (1.0-4.8) k/uL Sodium 135 L (137-145) mmol/L BUN 36 H (7-17) mg/dL Creatinine 3.67 H (0.52-1.04) mg/dL Glucose 142 H (74-99) mg/dL Lactate Dehydrogenase 703 H (313-618) U/L Urine Protein 2+ H (Negative) Urine Glucose (UA) 2+ H (Negative) Hyaline Casts 4 H (0-2) /lpf Urine Mucus Rare H (None) /hpf Thrombosis Risk Factor Assmnt - Choose All That Apply Any of the Below Risk Factors Present?: Yes Each Factor Represents 1 point: Swollen legs (current) Other Risk Factors: Yes Each Risk Factor Represents 2 Points: Age 61-74 years Other congenital or acquired thrombophilia - If yes, enter type in comment: No Thrombosis Risk Factor Assessment Total Risk Factor Score: 3 Thrombosis Risk Factor Assessment Level: Moderate Risk
[2020-01-13 04:41] LABS: Basophils % (A) 1 %; Eosinophils # (A) 0.1 k/uL (0-0.7); Eosinophils % (A) 4 %; HCT 26.8 % (34.0-46.0); HGB 8.4 gm/dL (11.4-16.0); Hypochromasia Slight; Lymphocytes # (A) 0.3 k/uL (1.0-4.8); Lymphocytes % (A) 12 %; MCHC 31.5 g/dL (31.0-37.0); Macrocytosis Moderate; Mean Platelet Volume 8.2; Monocytes # (A) 0.2 k/uL (0-1.0); Monocytes % (A) 8 %; Neutrophils # (A) 1.9 k/uL (1.3-7.7); Neutrophils % (A) 73 %; Platelet Count 61 k/uL (150-450); RBC 2.48 m/uL (3.80-5.40); RDW 13.6 % (11.5-15.5); WBC 2.6 k/uL (3.8-10.6)
[2020-01-13] MEDS: oxyCODONE ER 20 MG TAB.ER.12H PO PRN ×2 (06:23→20:48)
[2020-01-13] MEDS: METOPROLOL TARTRATE 25 MG TAB PO SCH ×2 (09:50→20:47)
[2020-01-13] MEDS: SODIUM CHLORIDE 0.9% 1,000 ML IV SCH ×2 (09:51→17:24)
[2020-01-13 10:06] LABS: African American GFR (CKD) 20.6 (60.0-200.0); Albumin 3.2 g/dL (3.80-4.90); Albumin/Globulin Ratio 1.6 (1.60-3.17); Anion Gap 5.2 mmol/L (4.00-12.00); BUN/Creat Ratio 10.37 Ratio (12.00-20.00); Calcium 8.2 mg/dL (8.7-10.3); Carbon Dioxide 20.8 mmol/L (21.6-31.8); Magnesium 2.2 mg/dL (1.5-2.4); Non-African American GFR(CKD) 17.8 (60.0-200.0); Phosphorus 3.2 mg/dL (2.4-5.1); Potassium 4.2 mmol/L (3.5-5.5); Total Bilirubin 0.2 mg/dL (0.2-1.2); Total Protein 5.2 g/dL (6.2-8.2)
[2020-01-13] MEDS ORDERED: SODIUM FERRIC GLUCONAT-SUCROSE 125 MG in SODIUM CHLORIDE 0.9% 100 ML IVPB ONE (10:45)
--- NOTE | 2020-01-13 10:46 | P.PN ---
Subjective Patient is seen in follow-up for acute kidney injury. Creatinine was as low as 1.0 as of 05/18/2019. From August through November 2019 it's been in the range of 1.9-2.3. Creatinine was 3.67 on admission and is 2.7 today. She is maintained on IV fluids. Good urine output. No vomiting or diarrhea. Appetite is fair. Vital signs are stable. General: The patient appeared well nourished and normally developed. HEENT: Head exam is unremarkable. Neck is without jugular venous distension. LUNGS: Breath sounds decreased. HEART: Rate and Rhythm are regular. ABDOMEN: Abdominal exam reveals normal bowel sounds. Non-tender and non- distended. No evidence of peritonitis. EXTREMITITES: 1+ edema right lower extremity. Objective - Vital Signs Vital signs: Vital Signs Temp 98.3 F 01/13/20 04:30 Pulse 77 01/13/20 04:30 Resp 16 01/13/20 04:30 BP 114/55 01/13/20 04:30 Pulse Ox 100 01/13/20 04:30 Intake & Output 01/12/20 01/13/20 01/13/20 18:59 06:59 18:59 Intake Total 800 1100 Output Total 85 Balance 800 1100 -85 Intake: Intake, IV Titration 800 800 Amount Sodium Chloride 0.9% 1, 800 800 000 ml @ 100 mls/hr IV . Q10H [facility] Rx#:[id number] Oral 300 Output: Post Void Residual 85 Other: Voiding Method Toilet Toilet Toilet # Voids 2 - Labs CBC & Chem 7: 01/13/20 04:29 01/13/20 04:29 Labs: Abnormal Lab Results - Last 24 Hours (Table) 01/12/20 01/12/20 01/13/20 Range/Units 11:51 13:15 04:29 WBC (3.8-10.6) k/uL RBC (3.80-5.40) m/uL Hgb (11.4-16.0) gm/dL Hct (34.0-46.0) % MCV (80.0-100.0) fL Plt Count (150-450) k/uL Lymphocytes # (1.0-4.8) k/uL Sodium 136 L (137-145) mmol/L Chloride 110 H 115 H (98-107) mmol/L Carbon Dioxide 20.8 L (21.6-31.8) mmol/L BUN 32 H 28.0 H (7-17) mg/dL Creatinine 3.11 H 2.7 H (0.52-1.04) mg/dL Est GFR (CKD-EPI)AfAm 20.6 L (60.0-200.0) Est GFR (CKD-EPI)NonAf 17.8 L (60.0-200.0) BUN/Creatinine Ratio 10.37 L (12.00-20.00) Ratio Glucose 126 H (74-99) mg/dL Calcium 8.2 L (8.7-10.3) mg/dL Magnesium 2.6 H (1.6-2.3) mg/dL Total Protein 5.2 L (6.2-8.2) g/dL Albumin 3.20 L (3.80-4.90) g/dL Urine Protein 1+ H (Negative) Urine Glucose (UA) 2+ H (Negative) Urine Blood Trace H (Negative) Urine Bacteria Rare H (None) /hpf Urine Mucus Rare H (None) /hpf 01/13/20 Range/Units 04:29 WBC 2.6 L (3.8-10.6) k/uL RBC 2.48 L (3.80-5.40) m/uL Hgb 8.4 L (11.4-16.0) gm/dL Hct 26.8 L (34.0-46.0) % MCV 108.0 H (80.0-100.0) fL Plt Count 61 L (150-450) k/uL Lymphocytes # 0.3 L (1.0-4.8) k/uL Sodium (137-145) mmol/L Chloride (98-107) mmol/L Carbon Dioxide (21.6-31.8) mmol/L BUN (7-17) mg/dL Creatinine (0.52-1.04) mg/dL Est GFR (CKD-EPI)AfAm (60.0-200.0) Est GFR (CKD-EPI)NonAf (60.0-200.0) BUN/Creatinine Ratio (12.00-20.00) Ratio Glucose (74-99) mg/dL Calcium (8.7-10.3) mg/dL Magnesium (1.6-2.3) mg/dL Total Protein (6.2-8.2) g/dL Albumin (3.80-4.90) g/dL Urine Protein (Negative) Urine Glucose (UA) (Negative) Urine Blood (Negative) Urine Bacteria (None) /hpf Urine Mucus (None) /hpf Assessment and Plan Plan: Assessment: 1. Acute kidney injury mostly prerenal secondary to hypotension further w orsened with the use of lisinopril. Doubt TLS. Creatinine 3.67 on admission and is down to 2.7 today. Creatinine was as low as 1.0 as of 05/18/2019. Since then has been in the range of 1.9-2.3. No evidence of hydronephrosis noted. ?Tumor infiltration although kidneys are not large in size. 2. Recurrence of non-Hodgkin's lymphoma. Oncology following. 3. Benign hypertension. Remains on the lower side but better compared to yesterday. Cortisol level 7. 4. Anemia. Iron deficiency noted. 5. Proteinuria. UPC 1.47. I will order serologies. 6. Right lower extremity edema. Rule out DVT. Plan: Decrease normal saline to 50 mL an hour. Continue to hold lisinopril. Avoid nephrotoxins. IV iron today. Continue to monitor renal function and urine output. Check serologies. Check right lower extremity Doppler to rule out DVT.
[2020-01-13] MEDS: SERTRALINE 50 MG TAB PO SCH (11:01)
[2020-01-13] MEDS: SERTRALINE 100 MG TAB PO SCH (11:01)
--- NOTE | 2020-01-13 17:00 | P.PN ---
Subjective Progress Note Date: 01/13/20 The patient denies any new complaints. She continues to feel somewhat fatigued. Appetite is slightly improved. She denied any new pain, or new masses. No fever/chills/nausea/vomiting Objective - Vital Signs Vital signs: Vital Signs Temp 98.7 F 01/13/20 13:00 Pulse 76 01/13/20 13:00 Resp 16 01/13/20 13:00 BP 112/66 01/13/20 13:00 Pulse Ox 96 01/13/20 13:00 Intake & Output 01/12/20 01/13/20 01/13/20 18:59 06:59 18:59 Intake Total 800 1100 500 Output Total 85 Balance 800 1100 415 Intake: Intake, IV Titration 800 800 500 Amount Sodium Chloride 0.9% 1, 800 800 500 000 ml @ 50 mls/hr IV . Q20H [facility] Rx#:[id number] Oral 300 Output: Post Void Residual 85 Other: Voiding Method Toilet Toilet Toilet # Voids 2 - Constitutional General appearance: Present: no acute distress - EENT Eyes: Present: EOMI ENT: Present: hearing grossly normal, normal oropharynx - Respiratory Respiratory: bilateral: CTA - Cardiovascular Rhythm: regular Heart sounds: normal: S1, S2 - Gastrointestinal General gastrointestinal: Present: normal bowel sounds, soft - Integumentary Integumentary Comment(s): Stable skin nodules - Neurologic Neurologic: Present: CNII-XII intact - Musculoskeletal Musculoskeletal: Present: generalized weakness, strength equal bilaterally - Psychiatric Psychiatric: Present: A&O x's 3, appropriate affect - Labs CBC & Chem 7: 01/13/20 04:29 01/13/20 04:29 Labs: Abnormal Lab Results - Last 24 Hours (Table) 01/13/20 01/13/20 Range/Units 04:29 04:29 WBC 2.6 L (3.8-10.6) k/uL RBC 2.48 L (3.80-5.40) m/uL Hgb 8.4 L (11.4-16.0) gm/dL Hct 26.8 L (34.0-46.0) % MCV 108.0 H (80.0-100.0) fL Plt Count 61 L (150-450) k/uL Lymphocytes # 0.3 L (1.0-4.8) k/uL Chloride 115 H (96-109) mmol/L Carbon Dioxide 20.8 L (21.6-31.8) mmol/L BUN 28.0 H (9.0-27.0) mg/dL Creatinine 2.7 H (0.6-1.5) mg/dL Est GFR (CKD-EPI)AfAm 20.6 L (60.0-200.0) Est GFR (CKD-EPI)NonAf 17.8 L (60.0-200.0) BUN/Creatinine Ratio 10.37 L (12.00-20.00) Ratio Calcium 8.2 L (8.7-10.3) mg/dL Total Protein 5.2 L (6.2-8.2) g/dL Albumin 3.20 L (3.80-4.90) g/dL Assessment and Plan (1) ARF (acute renal failure) Narrative/Plan: The patient's workup did not show any evidence of obstruction. There was no evidence of tumor lysis by labs either. She is currently on IV hydration. Creatinine is improved significantly of 2.7. - Case was discussed in detail with nephrology. A UA did show some abnormality, due to which they have ordered. Additional serologic workup. I discussed the possibility of paraneoplastic GN. It was felt that this is less likely, given the ongoing improvement in the creatinine with hydration. However, even if the source present, the management would involve immunosuppression and treatment of the underlying lymphoma. The patient has been already started on high-dose bolu s steroids with a plan to bridge to more specific anti-lymphoma treatment, once she completes her consultation at the [facility] Current Visit: Yes Status: Acute Code(s): N17.9 - ACUTE KIDNEY FAILURE, UNSPECIFIED SNOMED Code(s): 41727217 (2) NHL (non-Hodgkin's lymphoma) Narrative/Plan: Patient is clinically stable. As noted, labs, do not show any evidence of tumor lysis. The patient received 2 days of high-dose Decadron prior to her admission. She'll be resumed on that to complete 2 more days for the initial 40 embolus. Referral has been made to the [facility]. The patient will follow-up there for an opinion regarding specific treatment, or discharge. Current Visit: Yes Status: Chronic Priority: High Code(s): C85.90 - NON- HODGKIN LYMPHOMA, UNSPECIFIED, UNSPECIFIED SITE SNOMED Code(s): 447950998 (3) Bicytopenia Narrative/Plan: Patient continues to have cytopenias, actually pancytopenia. At this time. Suspected to be due to underlying lymphoma. Counts remain in a safe range. Continue to monitor with supportive treatment as needed Current Visit: No Status: Acute Priority: Low Code(s): D75.89 - OTHER SPECIFIED DISEASES OF BLOOD AND BLOOD-FORMING ORGANS SNOMED Code(s): 07762639
[2020-01-13] MEDS ORDERED: dexAMETHasone 4 MG TAB PO SCH (18:00)
[2020-01-13 20:04] LABS: Protein, Total 5.5 g/dL (6.2-8.2)
[2020-01-13] MEDS: AMITRIPTYLINE HCL 25 MG TAB PO SCH (20:47)
[2020-01-13] MEDS: clonazePAM 0.5 MG TAB PO PRN (20:49)
--- NOTE | 2020-01-13 20:49 | P.PN ---
Progress Note - Text Progress Note Date: 01/13/20 Chief Complaint: Lumps in the body History of presenting complaint: This is a very pleasant 64-year-old patient of Dr. Weller. Rather extensive medical history. Patient initially diagnosed as a lump in the right groin in 2016 had a biopsy done at [facility] and had a diagnosis of non- Hodgkin's lymphoma. Decision was made to follow with observation. She did not follow-up for the same. She had a possible breast lump ultrasound of the breast was negative. In October 2018 she had new abdominal pain and computed tomography scan showed a mass in the right lower quadrant. Along with adenopathy. She underwent resection of the right ovary and right fallopian tube and pelvic lymph node biopsy was carried out. 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 PET scan that showed multiple areas of uptake including the left axilla. PET scan showed areas of multiple uptake including left axilla, mediastinum, left breast, multiple areas in the retro-peritoneal.. She was hepatitis C positive. 2-D echo showed EF of 45%. She also had a cardiac catheterization in October 2018 came back to be negative. Patient was started with chemotherapy. High-grade B-cell non-Hodgkin's lymphoma. hepatitis C has become negative. Patient was treated with rounds of chemotherapy. PET scan did show improvement but still showed persistent uptake. Patient of recent has noticed to have lumps in the body. This was biopsied. Came back to confirm lymphoma. Also patient showed worsening renal function. Sent into the ER. Appetite is okay. No fever. Did discuss get bouts of both perspiration. Admitted with-progressive lymphadenopathy and lumps in the [id number] for recurrence of lymphoma. Also acute kidney injury. Started on IV fluids. Today-sitting up. Oral intake fair. Getting IV fluids. A bit tired Review of systems: Was done for constitutional, cardiovascular, GI, pulmonary. relevant finding as above Active Medications Amitriptyline HCl (Amitriptyline Hcl 25 Mg Tab) 25 mg PO HS [facility] Last Admin: 01/12/20 20:34 Dose: 25 mg Documented by: Clonazepam (Clonazepam 0.5 Mg Tab) 0.5 mg PO BID PRN PRN Reason: Anxiety Last Admin: 01/12/20 13:41 Dose: 0.5 mg Documented by: Cyclobenzaprine HCl (Cyclobenzaprine 5 Mg Tab) 5 mg PO TID PRN PRN Reason: Muscle Spasm Dexamethasone (Dexamethasone 4 Mg Tab) 40 mg PO Q24H [facility] Stop: 01/14/20 18:01 Last Admin: 01/13/20 17:24 Dose: 40 mg Documented by: Sodium Chloride (Saline 0.9%) 1,000 mls @ 50 mls/hr IV .Q20H [facility] Last Admin: 01/13/20 17:24 Dose: 50 mls/hr Documented by: Loratadine (Loratadine 10 Mg Tab) 10 mg PO DAILY PRN PRN Reason: allergies Metoprolol Tartrate (Metoprolol Tartrate 25 Mg Tab) 25 mg PO BID [facility] Last Admin: 01/13/20 09:50 Dose: 25 mg Documented by: Oxycodone HCl (Oxycodone Er 20 Mg Tab.Er.12h) 20 mg PO Q12HR PRN PRN Reason: Pain Last Admin: 01/13/20 06:23 Dose: 20 mg Documented by: Oxycodone/Acetaminophen (Oxycodone-Apap 10-325mg 1 Each Tab) 1 each PO QID PRN PRN Reason: Pain Last Admin: 01/13/20 09:56 Dose: 1 each Documented by: Pantoprazole Sodium (Pantoprazole 40 Mg Tablet) 40 mg PO DAILY PRN PRN Reason: Heartburn Last Admin: 01/13/20 10:03 Dose: 40 mg Documented by: Polyethylene Glycol (Polyethylene Glycol 3350 17 Gm Powd.Pack) 17 gm PO QAM PRN PRN Reason: Constipation Prochlorperazine Maleate (Prochlorperazine 10 Mg Tab) 10 mg PO Q6H PRN PRN Reason: Nausea Senna (Sennosides 8.6 Mg Tab) 8.6 mg PO BID PRN PRN Reason: Constipation Sertraline HCl (Sertraline 100 Mg Tab) 100 mg PO DAILY [facility] Last Admin: 01/13/20 11:01 Dose: 100 mg Documented by: Sertraline HCl (Sertraline 50 Mg Tab) 50 mg PO DAILY [facility] Last Admin: 01/13/20 11:01 Dose: 50 mg Documented by: Physical examination: VITAL SIGNS: 98.7, 76, 16, 112/66, 96% room air GENERAL: Sitting up in bed, not in distress EYES: Pupils equal. Conjunctiva pale. NECK: JVD not raised; masses not palpable. HEART: First and second heart sounds are normal; no edema. LUNGS: Respiratory rate normal; decreased breath sounds. ABDOMEN: Soft, non- tenderness, liver spleen not palpable, no masses palpable. Subcutaneous masses palpable PSYCH: Alert and oriented x3; mood and affect normal LYMPHATICS: lymph nodes palpable in the groin and the right axilla. INVESTIGATIONS, reviewed in the clinical context: White count 2.6 hemoglobin 8.4 platelets 61 potassium 4.2 creatinine 2.7 BUN 28 Admission testing White count 6 hemoglobin 8.9 platelets 80 bun 36 creatinine 3.67. Repeat this morning 3.11 Ultrasound venous Doppler lower extremity-multiple lymph nodes in the groin. No DVT. Computed tomography scan of the abdomen-extensive soft tissue density through the right obturator canal and due to region. Compatible with metastatic disease. Extensive adenopathy. Especially in the inguinal area. Previous testing: Creatinine was 2.3 on November 10 Assessment: -High-grade B-cell Non-Hodgkin's lymphoma for -received few cycles of chemotherapy. Now presented with relapse. With positive PET scan. And confirmed on the lymph node biopsy.-Further follow-up at [facility]. -Acute kidney injury. Cannot rule out chronic component. Started to improve with hydration. -Hepatitis C-treated -Idiopathic Cardiomyopathy EF 35-40% -Essential hypertension -Hyperlipidemia -Pancytopenia likely from non-Hodgkin's lymphoma -Chronic nicotine dependence patient cigarette smoker Plan: Continue with IV fluids. Repeat labs. Other medications to continue. Increase activity as tolerated.
[2020-01-13 21:12] LABS: Hepatitis A Antibody IgM Non-Reactive (Non-Reactive); Hepatitis B Core IgM Non-Reactive (Non-Reactive); Hepatitis B Surface Antigen Non-Reactive (Non-Reactive); Hepatitis C IgG Antibody Reactive (Non-Reactive)
[2020-01-14] MEDS: SERTRALINE 100 MG TAB PO SCH (08:31)
[2020-01-14] MEDS: SERTRALINE 50 MG TAB PO SCH (08:31)
[2020-01-14] MEDS: METOPROLOL TARTRATE 25 MG TAB PO SCH (08:31)
[2020-01-14 09:10] LABS: Basophils % (A) 0 %; Eosinophils % (A) 1 %; HCT 29.8 % (34.0-46.0); HGB 9.1 gm/dL (11.4-16.0); Hypochromasia Slight; Lymphocytes # (A) 0.3 k/uL (1.0-4.8); Lymphocytes % (A) 9 %; MCH 33.6 pg (25.0-35.0); MCHC 30.6 g/dL (31.0-37.0); MCV 109.7 fL (80.0-100.0); Macrocytosis Marked; Mean Platelet Volume 7.9; Monocytes # (A) 0.2 k/uL (0-1.0); Monocytes % (A) 7 %; Neutrophils # (A) 2.6 k/uL (1.3-7.7); Neutrophils % (A) 82 %; RBC 2.72 m/uL (3.80-5.40); RDW 13.8 % (11.5-15.5); WBC 3.2 k/uL (3.8-10.6)
[2020-01-14] MEDS: oxyCODONE ER 20 MG TAB.ER.12H PO PRN (09:12)
[2020-01-14 09:33] LABS: Platelet Count 82 k/uL (150-450)
[2020-01-14 09:57] VITALS: BP 103/51; PULSE 76; TEMP 97.9
[2020-01-14 11:34] LABS: African American GFR (CKD) 26.4 (60.0-200.0); Albumin 3.7 g/dL (3.80-4.90); Albumin/Globulin Ratio 1.76 (1.60-3.17); Anion Gap 4.8 mmol/L (4.00-12.00); BUN/Creat Ratio 9.55 Ratio (12.00-20.00); Calcium 8.7 mg/dL (8.7-10.3); Carbon Dioxide 20.2 mmol/L (21.6-31.8); Globulin 2.1 g/dL (1.6-3.3); Non-African American GFR(CKD) 22.8 (60.0-200.0); Potassium 4.4 mmol/L (3.5-5.5); Total Bilirubin 0.3 mg/dL (0.3-1.2); Total Protein 5.8 g/dL (6.2-8.2)
--- NOTE | 2020-01-14 15:29 | PN ---
PROGRESS NOTE Patient is seen for followup for acute kidney injury. Renal function has been improving. Serum creatinine down to 2.2 from 3.67 on initial admission. Patient is currently being discharged. She denies any significant complaints. PHYSICAL EXAMINATION: Blood pressure is 103/51, heart rate 76 per minute, she is afebrile. Examination of the heart S1, S2. Examination of the lungs, bilateral breath sounds are heard. Abdomen is soft, nontender. Examination of lower extremities shows no significant edema. LABS: Show sodium 141, potassium 4.4, chloride 116. CO2 is 20.2, hemoglobin of 9.1, serum creatinine 2.2 mg/dL. ASSESSMENT: 1. Acute kidney injury, mostly prerenal and secondary to hypotension, currently improved, no evidence of hydronephrosis. 2. Recurrence of non-Hodgkin's lymphoma. 3. Benign hypertension. Blood pressure remains on the lower side. 4. Right lower extremity edema. No evidence of DVT. 5. Anemia with iron deficiency. PLAN: Patient can be discharged with plans to follow up as outpatient. MMODL / IJN: [id number] /
--- NOTE | 2020-01-14 20:35 | DS ---
DISCHARGE SUMMARY DATE OF SERVICE: 01/14/2020 FINAL DIAGNOSES: 1. Acute renal failure with acute tubular necrosis. 2. High-grade B-cell non-Hodgkin lymphoma, status post 2 cycles of chemotherapy. 3. Hepatitis C, treated. 4. Idiopathic cardiomyopathy 35-40 percent ejection fraction with chronic systolic dysfunction, chronic congestive heart failure. 5. Hypertension. 6. Hyperlipidemia. 7. Pancytopenia, likely from NHL. 8. History of nicotine dependence. DISCHARGE DISPOSITION: The patient will be discharged in stable condition with guarded prognosis at this time, cleared by Nephrology. HISTORY OF PRESENT ILLNESS: This 64-year-old woman with a past medical history of multiple medical problems being followed by Dr. Chau in the outpatient setting was admitted with features of renal failure and as well as the patient treated with 2 days of high-grade Decadron prior to admission. Dr. Gutiérrez will follow up in the outpatient setting. On exam, vitals signs are stable. Cardiovascular: S1, S2. Abdomen soft. Nervous system: No focal deficits. Creatinine stable at 2.2 and BUN is 21. DISCHARGE ADVICE AND MEDICATIONS: 1. Diet is cardiac. 2. Activity limited until followup. 3. Follow up with Dr. Weller in 2-3 days. 4. Follow up with Nephrology and Hematology/Oncology as recommended. 5. No Lisinopril. DISCHARGE MEDICATIONS: 1. Rolanda as before. 2. Dexamethasone 4 mg taper. 3. Elavil 25 mg q.h.s. 4. EMLA cream as before. 5. Flexeril as before. 6. Flonase as before. 7. Vitamin C 1 p.o. daily. 8. Klonopin 0.5 mg b.i.d. p.r.n. 9. Lopressor 25 mg b.i.d. 10.Maalox 17 g q.a.m. 11.Omeprazole 20 mg daily. 12.OxyContin 20 mg p.o. b.i.d. 13.Percocet 1 tablet q.i.d. p.r.n. 14.Zofran p.r.n. 15.Zoloft 100 mg p.o. daily and 50 mg p.o. daily. 16.Compazine 10 mg q.6 p.r.n. 17.Senna p.r.n. Followup labs with Dr. Weller. Once again the patient being discharged in stable condition. Guarded prognosis. MMODL / IJN: [id number] /
[2020-01-16 13:51] LABS: Albumin 3.09 g/dL (3.80-4.90); Gamma Globulin 0.73 g/dL (0.70-1.50)
[2020-01-16 14:47] LABS: C-ANCA <1:20 Titer (<1:20)
== END 2020-01-14 13:45 | disposition home or self-care (01) | DRG 683 ==
LOC: EC 15:47 → 6NMEDSUR 19:01 → 5NMEDONC 01-12 17:23 → OBSVTOIN 01-13 12:14
PROVIDERS: ADMIT Hospitalist; ATTEND Hospitalist
DX: N17.0 Acute kidney failure with tubular necrosis (principal); I50.22 Chronic systolic (congestive) heart failure; I42.9 Cardiomyopathy, unspecified; D61.818 Other pancytopenia; C83.30 Diffuse large B-cell lymphoma, unspecified site; I13.0 Hypertensive heart and chronic kidney disease with heart failure and stage 1 through stage 4 chronic kidney disease, or unspecified chronic kidney disease; T45.1X5A Adverse effect of antineoplastic and immunosuppressive drugs, initial encounter; F32.9 Major depressive disorder, single episode, unspecified; F17.210 Nicotine dependence, cigarettes, uncomplicated; E78.5 Hyperlipidemia, unspecified; I48.91 Unspecified atrial fibrillation; B19.20 Unspecified viral hepatitis C without hepatic coma; N18.9 Chronic kidney disease, unspecified; D50.9 Iron deficiency anemia, unspecified; Z82.5 Family history of asthma and other chronic lower respiratory diseases; Z82.49 Family history of ischemic heart disease and other diseases of the circulatory system; Z82.0 Family history of epilepsy and other diseases of the nervous system; Z79.899 Other long term (current) drug therapy; Z88.6 Allergy status to analgesic agent; Z90.49 Acquired absence of other specified parts of digestive tract; Z98.890 Other specified postprocedural states
CPT/HCPCS: 36415; 74176; 76770; 80053; 80074; 81001; 82533; 82550; 82570; 82728; 83540; 83550; 83605; 83615; 83735; 83880; 84100; 84156; 84165; 84484; 84550; 85025; 85610; 85730; 86038; 86160; 86162; 86255; 86335; 87205; 93005; 93970; 96360; 96361; 99285

== ENCOUNTER → 2020-01-17 | Outpatient (CLI) | payer MEDICARE, OTHER ==
[2020-01-17 16:41] LABS: Basophils % (A) 1 %; Eosinophils # (A) 0.2 k/uL (0-0.7); Eosinophils % (A) 3 %; HCT 29.9 % (34.0-46.0); HGB 9.6 gm/dL (11.4-16.0); Hypochromasia Slight; Lymphocytes # (A) 0.5 k/uL (1.0-4.8); Lymphocytes % (A) 10 %; Macrocytosis Moderate; Mean Platelet Volume 7.1; Monocytes # (A) 0.3 k/uL (0-1.0); Monocytes % (A) 5 %; Neutrophils # (A) 4.1 k/uL (1.3-7.7); Neutrophils % (A) 79 %; RBC 2.82 m/uL (3.80-5.40); RDW 14.4 % (11.5-15.5); WBC 5.2 k/uL (3.8-10.6)
[2020-01-17 17:32] LABS: Platelet Count 74 k/uL (150-450)
[2020-01-18 02:58] LABS: African American GFR (CKD) 23.8 (60.0-200.0); Anion Gap 8.9 mmol/L (4.00-12.00); BUN/Creat Ratio 8.33 Ratio (12.00-20.00); Calcium 9.1 mg/dL (8.7-10.3); Carbon Dioxide 21.1 mmol/L (21.6-31.8); Non-African American GFR(CKD) 20.5 (60.0-200.0); Potassium 3.9 mmol/L (3.5-5.5)
== END | disposition home or self-care (01) ==
LOC: LABWHC1 14:42
PROVIDERS: ATTEND Hospitalist
DX: D64.9 Anemia, unspecified (principal)
CPT/HCPCS: 36415; 80048; 85025

== ENCOUNTER → 2020-02-01 | Outpatient (CLI) | payer MEDICARE, OTHER ==
[2020-02-01 08:28] LABS: Appearance,Urine Turbid (Clear); Bacteria,Urine Occasional /hpf; Bilirubin,Urine Negative (Negative); Blood,Urine Small (Negative); Color,Urine Yellow; Glucose,Urine (UA) 3+ (Negative); Granular Casts,Urine 1 /lpf (0); Ketones,Urine 1+ (Negative); Leukocyte Esterase,Urine Trace (Negative); Mucus,Urine Rare /hpf; Nitrite,Urine Negative (Negative); Protein,Urine 3+ (Negative); Specific Gravity,Urine 1.028 (1.001-1.035); Squamous Epithelial Cell,Urine <1 /hpf (0-4); WBC,Urine 1 /hpf (0-5)
[2020-02-01 08:37] LABS: Creatinine,Urine Random 217.9 mg/dL; Protein/Creatinine Ratio,Urine 0.817
[2020-02-01 10:26] LABS: Anion Gap 10.7 mmol/L (4.00-12.00); BUN/Creat Ratio 8.7 Ratio (12.00-20.00); Carbon Dioxide 22.3 mmol/L (21.6-31.8); Non-African American GFR(CKD) 21.6 (60.0-200.0); Potassium 3.2 mmol/L (3.5-5.5)
== END | disposition home or self-care (01) ==
LOC: LABWHC1 07:01
PROVIDERS: ATTEND Nurse Practitioner Family
DX: N17.9 Acute kidney failure, unspecified (principal); N39.0 Urinary tract infection, site not specified; R80.9 Proteinuria, unspecified
CPT/HCPCS: 36415; 80048; 81001; 82570; 84156

== ENCOUNTER 2020-02-02 17:55 | Emergency (ER) | payer MEDICARE, OTHER ==
[2020-02-02 18:03] VITALS: BP 100/59; PULSE 92; RESP 20; TEMP 98.6
[2020-02-02] MEDS ORDERED: LIDOCAINE 1%-EPI 1:100,000 20 ML VIAL SQ STA (18:20)
--- NOTE | 2020-02-02 18:39 | ED ---
General Adult HPI - General Chief complaint: Fall Stated complaint: Fall, Head Lac Time Seen by Provider: 02/02/20 18:09 Source: patient, RN notes reviewed Mode of arrival: wheelchair Limitations: no limitations - History of Present Illness Initial comments: 64-year-old female complicated past medical history including lymphoma presents to the emergency room for a chief complaint of head injury and laceration. Patient reports that her feet got tangled in a blanket on the ground and she fell hitting her head on a coffee table. No loss of consciousness. No blood thinners.Patient has no other complaints at this time including shortness of breath, chest pain, abdominal pain, nausea or vomiting, headache, or visual changes. - Related Data Home Medications Medication Instructions Recorded Confirmed Sertraline [Zoloft] 100 mg PO DAILY 06/05/14 01/11/20 Metoprolol Tartrate [Lopressor] 25 mg PO BID 10/08/15 01/11/20 clonazePAM [KlonoPIN] 0.5 mg PO BID PRN 10/25/18 01/11/20 Ondansetron HCl [Zofran] 4 mg PO Q4H PRN 12/15/18 01/11/20 Amitriptyline HCl [Elavil] 25 mg PO HS 01/24/19 01/11/20 Omeprazole 20 mg PO DAILY PRN 01/24/19 01/11/20 Sertraline HCl [Zoloft] 50 mg PO DAILY 01/24/19 01/11/20 Vitamin C/Biotin [Hair, Skin and 1 tab PO DAILY 03/14/19 01/11/20 Nails] oxyCODONE-APAP 10-325MG [Percocet 1 tab PO QID PRN 03/14/19 01/11/20 10-325 mg] Lidocaine-Prilocaine Cream [Emla 1 applic TOPICAL DIRECTED PRN 05/16/19 01/11/20 Cream 2.5%/2.5%] oxyCODONE ER [OxyCONTIN] 20 mg PO Q12HR PRN 05/16/19 01/11/20 Cyclobenzaprine [Flexeril] 5 mg PO TID PRN 01/11/20 01/11/20 Dexamethasone [Decadron] See Taper PO DIRECTED 01/11/20 01/11/20 Fexofenadine HCl [Rolanda Allergy] 30 mg PO DAILY PRN 01/11/20 01/11/20 Fluticasone Propionate [Flonase 1 spray EA NOSTRIL DAILY PRN 01/11/20 01/11/20 Allergy Relief] [employer] Brand Sinus Med (Unknown 1 tab PO DAILY PRN 01/11/20 01/11/20 Strength) polyethylene glycoL 3350 [Miralax] 17 gm PO QAM PRN 01/11/20 01/11/20 Previous Rx's Medication Instructions Recorded Prochlorperazine [Compazine] 10 mg PO Q6H PRN #50 tab 03/17/19 Sennosides [Senna] 8.6 mg PO BID PRN #100 tablet 03/17/19 Allergies Allergy/AdvReac Type Severity Reaction Status Date / Time NSAIDS (Non-Steroidal AdvReac Swelling, Verified 02/02/20 18:03 Anti-Inflamma "shuts kidneys down" Review of Systems ROS Statement: Those systems with pertinent positive or pertinent negative responses have been documented in the HPI. ROS Other: All systems not noted in ROS Statement are negative. Past Medical History Past Medical History: Atrial Fibrillation, Cancer, Chest Pain / Angina, Eye Disorder, Hyperlipidemia, Hypertension, Liver Disease, Musculoskeletal Disorder, Pneumonia, Renal Disease Additional Past Medical History / Comment(s): 2006 NHL (lymphoma) - no tx needed, then returned 10/2018, received 2 rounds chemo, last in 05/2019 ([facility] chemo), Hepatitis C-tx 2019 & told cured, DDD, Chronic LBP/cervical pain (Dr. Cummins for pain), migraines, decreased renal function w/ steroid/nsaid use. Hx glaucoma. Varicose veins. Gallstones. Port in Rt subclavian. CURRENTLY HAS 5 MASSES-1 LT SIDE-1 RT SIDE-BILAT TAILBONE, 1 RT UPPER THIGH. STATES LT SIDE IS MOST PAINFUL History of Any Multi-Drug Resistant Organisms: None Reported Past Surgical History: Cholecystectomy, Heart Catheterization, Orthopedic Surgery Additional Past Surgical History / Comment(s): 2006 R groin lump biopsy, 10/28/18 Exploratory laparotomy w/ tubo-ovarian cancer/R salpingo-oophorectomy/removal pelvic lymph nodes, 12/03/18 Port a cath, 12/20/18 cardiac cath-normal/CHIQUIS, 2015 cardiac cath, vaginal polypectomy, R shoulder arthroscopy/rotator cuff repair x2, R knee arthroscopy, ORIF R ankle with plates/screws. PORT A CATH Past Anesthesia/Blood Transfusion Reactions: No Reported Reaction Past Psychological History: Depression Smoking Status: Current some day smoker Past Alcohol Use History: None Reported Past Drug Use History: None Reported - Past Family History Mother Family Medical History: COPD, Coronary Artery Disease (CAD), Myocardial Infarction (GA), Seizure Disorder Additional Family Medical History / Comment(s): Mother had a GA at the age of 76yrs. She from fall/facial injury and aspirated blood. Father Family Medical History: Coronary Artery Disease (CAD), Seizure Disorder Additional Family Medical History / Comment(s): Father had a seizure while driving resulting in a MVA in which he . General Exam Limitations: no limitations General appearance: alert, in no apparent distress Head exam: Absent: atraumatic (Patient has a 3 cm laceration noted to the left side of the forehead.) Eye exam: Present: normal appearance, PERRL, EOMI. Absent: scleral icterus, conjunctival injection, periorbital swelling ENT exam: Present: normal exam, normal oropharynx, mucous membranes moist, TM's normal bilaterally, normal external ear exam Neck exam: Present: normal inspection, full ROM. Absent: tenderness, meningismus, lymphadenopathy Respiratory exam: Present: normal lung sounds bilaterally. Absent: respiratory distress, wheezes, rales, rhonchi, stridor Cardiovascular Exam: Present: regular rate, normal rhythm, normal heart sounds. Absent: systolic murmur, diastolic murmur, rubs, gallop, clicks GI/Abdominal exam: Present: soft, normal bowel sounds. Absent: distended, tenderness, guarding, rebound, rigid Neurological exam: Present: alert, oriented X3, normal gait, other (GCS 15) Course Vital Signs 02/02/20 18:01 Temperature 98.6 F Pulse Rate 92 Respiratory 20 Rate Blood Pressure 100/59 O2 Sat by Pulse 97 Oximetry Procedures - Laceration Laceration #1 Consent Obtained: verbal consent Indication: laceration Site: face Size (cm): 3 Description: stellate Depth: simple, single layer Anesthetic Used: lidocaine 1%, with epi Anesthesia Technique: local infiltration Amount (mls): 3 Pre-repair: wound explored, irrigated extensively (With saline pressure irrigation), deep structures intact Type of Sutures: nylon Size of Sutures: 5-0 Number of Sutures: 5 Technique: simple, interrupted Patient Tolerated Procedure: well, no complications Medical Decision Making - Medical Decision Making Patient presents for mechanical fall. She did hit her head. No blood thinners. GCS is 15. CT brain shows no acute cranial hemorrhage or midline shift. CT cervical spine shows no acute fracture or dislocation. Area was cleaned with saline pressure irrigation. Wound margins were then approximated using 5 simple interrupted sutures. Discussed return parameters and care instructions. She will otherwise follow up with primary care and return in 5-7 days for suture removal. Disposition Clinical Impression: Laceration, Head injury Disposition: HOME SELF-CARE Condition: Good Instructions (If sedation given, give patient instructions): Care For Your Stitches (ED), Laceration (ED) Additional Instructions: Keep the area clean. You may clean this twice daily with mild soap and water. You may apply antibiotic ointment as well. Follow-up with your doctor for a recheck. Watch for signs of a concussion including headache, vomiting, confusion, etc. Return in 5-7 days for suture removal. Is patient prescribed a controlled substance at d/c from ED?: No Referrals: Luke Bobo [STAFF PHYSICIAN] - 1-2 days Time of Disposition: 19:24
--- NOTE | 2020-02-02 18:52 | CT ---
EXAMINATION TYPE: CT brain cspine wo con DATE OF EXAM: 02/02/2020 COMPARISON: CT brain and cervical spine February 02, 2018 HISTORY: Fall with headache, forehead laceration, and neck pain. CT DLP: 1238.4 mGycm. Automated Exposure Control for Dose Reduction was Utilized. TECHNIQUE: CT scan of the head and cervical spine are performed without contrast. FINDINGS: There is no acute intracranial hemorrhage or midline shift identified. Mild to moderate d iffuse ventricular and sulcal prominence. Low-attenuation in the deep and periventricular white matte r. Small left frontal acute scalp hematoma axial image 30. The calvarium is intact. The globes are i ntact and the visualized sinuses are clear. Cervical spine is visualized in its entirety from C1 through upper thoracic levels and redemonstrates slight scoliotic curvature on coronal images without evidence of acute fracture or dislocation. Pre vertebral soft tissue appears within normal limits. The C1-C2 articulation remains within normal rodriguez its on coronal images. Prominent subchondral cyst top of the dens is redemonstrated. Persistent slig ht grade 1 anterolisthesis C4 on C5 and retrolisthesis C6 on C7. Mild disc space narrowing with mild to moderate anterior spurring at C3-C4, C5-C6, C6-C7 levels is redemonstrated. Vertebral body heights are maintained. Posterior disc herniations at these levels greatest C5-C6 level is redemonstrated. A xial images show multilevel uncovertebral facet degenerative changes contributing to multilevel bilat eral neural foraminal narrowing. Thyroid gland remains within normal limits. Lung apices show no pneu mothorax. IMPRESSION: 1. There is no acute fracture or dislocation evident in the cervical spine. 2. No acute intracranial hemorrhage or midline shift is seen.
== END 2020-02-02 19:40 | disposition home or self-care (01) ==
LOC: EC 17:55
DX: S01.81XA Laceration without foreign body of other part of head, initial encounter (principal); F32.9 Major depressive disorder, single episode, unspecified; F17.200 Nicotine dependence, unspecified, uncomplicated; I48.91 Unspecified atrial fibrillation; I10 Essential (primary) hypertension; E78.5 Hyperlipidemia, unspecified; Z79.899 Other long term (current) drug therapy; Z88.6 Allergy status to analgesic agent; Z86.69 Personal history of other diseases of the nervous system and sense organs; Z85.72 Personal history of non-Hodgkin lymphomas; Z85.43 Personal history of malignant neoplasm of ovary; Z90.721 Acquired absence of ovaries, unilateral; Z95.5 Presence of coronary angioplasty implant and graft; Z90.49 Acquired absence of other specified parts of digestive tract; W01.190A Fall on same level from slipping, tripping and stumbling with subsequent striking against furniture, initial encounter; Y92.009 Unspecified place in unspecified non-institutional (private) residence as the place of occurrence of the external cause
CPT/HCPCS: 12013; 70450; 72125; 99283

== ENCOUNTER → 2020-02-20 | Outpatient (CLI) | payer MEDICARE, OTHER ==
--- NOTE | 2020-02-21 10:56 | US ---
EXAMINATION TYPE: US kidneys/renal and bladder DATE OF EXAM: 02/20/2020 COMPARISON: None CLINICAL HISTORY: N17.9 NOAH. Abnormal labs. Lymphoma. EXAM MEASUREMENTS: Right Kidney: 10.2 x 5.2 x 4.0 cm Left Kidney: 10.1 x 4.2 x 4.7 cm Right Kidney: Medial anechoic lesion at hilum - 1.0 x 0.7 cm may be a small cyst Left Kidney: Prominent pyramids. Bladder: distended, anechoic Bilateral Jets seen IMPRESSION: 1. No acute ultrasound renal abnormality
== END | disposition home or self-care (01) ==
LOC: RADUSWWP 15:42
PROVIDERS: ATTEND Internal Medicine Nephrology
DX: N17.9 Acute kidney failure, unspecified (principal)
CPT/HCPCS: 76770

== ENCOUNTER → 2020-03-07 | Outpatient (CLI) | payer MEDICARE, OTHER ==
[2020-03-07 11:02] LABS: Anisocytosis Slight; Basophils % (A) 1 %; Eosinophils # (A) 0.2 k/uL (0-0.7); Eosinophils % (A) 4 %; HCT 25.6 % (34.0-46.0); HGB 8.5 gm/dL (11.4-16.0); Hypochromasia Moderate; Lymphocytes # (A) 0.1 k/uL (1.0-4.8); Lymphocytes % (A) 2 %; MCH 34.3 pg (25.0-35.0); MCHC 33.1 g/dL (31.0-37.0); MCV 103.5 fL (80.0-100.0); Macrocytosis Moderate; Mean Platelet Volume 8.3; Monocytes # (A) 0.2 k/uL (0-1.0); Monocytes % (A) 4 %; Neutrophils # (A) 4.2 k/uL (1.3-7.7); Neutrophils % (A) 89 %; Poikilocytosis Slight; RBC 2.47 m/uL (3.80-5.40); RDW 17.4 % (11.5-15.5); WBC 4.7 k/uL (3.8-10.6)
[2020-03-07 11:29] LABS: Appearance,Urine Cloudy (Clear); Bacteria,Urine Rare /hpf; Bilirubin,Urine Negative (Negative); Blood,Urine Trace (Negative); Color,Urine Yellow; Glucose,Urine (UA) 3+ (Negative); Ketones,Urine Negative (Negative); Leukocyte Esterase,Urine Small (Negative); Nitrite,Urine Negative (Negative); PH, Urine 6.5 (5.0-8.0); Protein,Urine 2+ (Negative); RBC,Urine 2 /hpf (0-5); Specific Gravity,Urine 1.019 (1.001-1.035); Squamous Epithelial Cell,Urine 5 /hpf (0-4); Urobilinogen,Urine <2.0 mg/dL (<2.0); WBC,Urine 39 /hpf (0-5)
[2020-03-07 11:32] LABS: Platelet Count 59 k/uL (150-450)
[2020-03-08 04:41] LABS: % Iron Saturation 18.41 (12.00-45.00); African American GFR (CKD) 29.6 (60.0-200.0); Albumin 3.9 g/dL (3.80-4.90); Anion Gap 9.2 mmol/L (4.00-12.00); BUN/Creat Ratio 7.5 Ratio (12.00-20.00); Calcium 7.7 mg/dL (8.7-10.3); Carbon Dioxide 13.8 mmol/L (21.6-31.8); Magnesium 1.9 mg/dL (1.5-2.4); Non-African American GFR(CKD) 25.6 (60.0-200.0); Potassium 4.2 mmol/L (3.5-5.5); Uric Acid 2.3 mg/dL (2.9-7.7)
[2020-03-08 05:03] LABS: Ferritin 269.6 ng/mL (10.0-291.0)
[2020-03-08 05:08] LABS: Creatinine,Urine Random 70.6 mg/dL
[2020-03-08 05:13] LABS: Total Protein,Urine Random 133.4 mg/dL (0.0-13.5)
== END | disposition home or self-care (01) ==
LOC: LABWHC1 09:44
PROVIDERS: ATTEND Internal Medicine Nephrology
DX: N17.9 Acute kidney failure, unspecified (principal); E55.9 Vitamin D deficiency, unspecified; N25.81 Secondary hyperparathyroidism of renal origin; M10.9 Gout, unspecified; N39.0 Urinary tract infection, site not specified; D64.9 Anemia, unspecified; R80.9 Proteinuria, unspecified
CPT/HCPCS: 36415; 80048; 81001; 82040; 82306; 82570; 82728; 83540; 83550; 83735; 83970; 84100; 84156; 84550; 85025

== ENCOUNTER → 2020-03-16 | Outpatient (CLI) | payer MEDICARE, OTHER ==
[2020-03-16 12:55] LABS: Anisocytosis Slight; Basophils % (A) 1 %; Eosinophils # (A) 0.1 k/uL (0-0.7); Eosinophils % (A) 4 %; HCT 26.5 % (34.0-46.0); Hypochromasia Slight; Lymphocytes # (A) 0.2 k/uL (1.0-4.8); Lymphocytes % (A) 7 %; MCH 34.6 pg (25.0-35.0); MCHC 34.1 g/dL (31.0-37.0); MCV 101.5 fL (80.0-100.0); Macrocytosis Moderate; Monocytes # (A) 0.3 k/uL (0-1.0); Monocytes % (A) 10 %; Neutrophils # (A) 2.5 k/uL (1.3-7.7); Neutrophils % (A) 74 %; RBC 2.61 m/uL (3.80-5.40); RDW 17.2 % (11.5-15.5); WBC 3.4 k/uL (3.8-10.6)
[2020-03-16 13:01] LABS: Platelet Count 56 k/uL (150-450)
[2020-03-16 14:08] LABS: Appearance,Urine Cloudy (Clear); Bilirubin,Urine Negative (Negative); Blood,Urine Trace (Negative); Color,Urine Light Yellow; Glucose,Urine (UA) 3+ (Negative); Ketones,Urine Negative (Negative); Leukocyte Esterase,Urine Small (Negative); Nitrite,Urine Negative (Negative); PH, Urine 6.5 (5.0-8.0); Protein,Urine 2+ (Negative); RBC,Urine 1 /hpf (0-5); Specific Gravity,Urine 1.013 (1.001-1.035); Squamous Epithelial Cell,Urine 3 /hpf (0-4); Urobilinogen,Urine <2.0 mg/dL (<2.0); WBC,Urine 10 /hpf (0-5)
[2020-03-16 14:15] LABS: Creatinine,Urine Random 68.3 mg/dL; Protein/Creatinine Ratio,Urine 1.654
[2020-03-16 20:18] LABS: % Iron Saturation 23.48 (12.00-45.00); African American GFR (CKD) 29.6 (60.0-200.0); Albumin 4.2 g/dL (3.80-4.90); BUN/Creat Ratio 8.5 Ratio (12.00-20.00); Calcium 8.5 mg/dL (8.7-10.3); Non-African American GFR(CKD) 25.6 (60.0-200.0); Potassium 4.3 mmol/L (3.5-5.5); Uric Acid 2.8 mg/dL (2.9-7.7)
[2020-03-16 20:23] LABS: Ferritin 269.4 ng/mL (10.0-291.0)
[2020-03-16 23:26] LABS: Hemoglobin A1C 4.6 % (4.0-6.0)
== END | disposition home or self-care (01) ==
LOC: LABWHC1 11:27
PROVIDERS: ATTEND Nurse Practitioner Family
DX: N17.9 Acute kidney failure, unspecified (principal); N39.0 Urinary tract infection, site not specified; E55.9 Vitamin D deficiency, unspecified; N25.81 Secondary hyperparathyroidism of renal origin; M10.9 Gout, unspecified; D64.9 Anemia, unspecified; R80.9 Proteinuria, unspecified; R73.9 Hyperglycemia, unspecified
CPT/HCPCS: 36415; 80048; 81001; 82040; 82306; 82570; 82728; 83036; 83540; 83550; 83735; 83970; 84100; 84156; 84550; 85025

== ENCOUNTER → 2020-04-28 | Outpatient (CLI) | payer MEDICARE ==
--- NOTE | 2020-05-01 06:51 | PE ---
EXAMINATION TYPE: PET CT fusion skull to thigh DATE OF EXAM: 04/28/2020 COMPARISON: Prior PET/CT December 16, 2019 and older studies. HISTORY: Non-Hodgkin's lymphoma progress study. Completed chemotherapy recently. Originally diagnos ed in 2006 above and below diaphragm. Recurrence in October 2018 right pelvis. TECHNIQUE: Following the intravenous administration of 11.39 mCi of F-18 FDG, whole body images are performed from the skull base to the midthigh. Images are reviewed on the computer in the coronal, a xial, and sagittal planes. Reconstructed rotating images are created on independent workstation and reviewed on the computer. A localization and attenuation correction CT is performed in conjunction with the PET scan. Blood glucose level equals 100. SCAN: Subsequent Scan FINDINGS: Main SUV mediastinum: 0.81 Mean SUV liver: 1.75 SKULL BASE AND NECK: No suspicious new hypermetabolic masses or adenopathy. CHEST, MEDIASTINUM, AND HILAR REGION: Interval resolution of abnormal hypermetabolic right axillary l ymph nodes. No suspicious enlarged lymph nodes currently. No new areas of abnormal hypermetabolic uptake. ABDOMEN AND PELVIS: Interval resolution of abnormal hypermetabolic retroperitoneal lymph nodes mid to lower abdomen. Some abnormal uptake along course of the distal left ureter. Mild nonspecific bowel uptake right lowe r quadrant into pelvis. Bladder excretion is present. No new or residual suspicious abnormal hypermet abolic uptake including posterior soft tissue and right gluteal soft tissue. Persistent asymmetric in creased soft tissue right pelvis just below sacroiliac joint near axial image 203. No suspicious hype rmetabolic or enlarged groin lymph nodes on current study. OSSEOUS STRUCTURES: No new areas of abnormal hypermetabolic uptake. OTHER CT: Stable right subclavian Mediport catheter. Moderate calcified plaque left carotid bulb leve l redemonstrated. Evidence of old granulomatous disease with calcified left hilar lymph nodes and medial calcified 1 cm left lower lobe nodule or granuloma. Mild to moderate coronary artery calcification redemonstrated. Mild cardiomegaly. Cholecystectomy clips. Hepatomegaly. Multilevel facet arthropathy in the lower lumbar spine. Slight s coliotic curvature. Height loss superior T12 and L3 endplates with sclerosis consistent with compress ion type fracture deformities. Few scattered bilateral pelvic phleboliths. IMPRESSION: Complete positive treatment response. No new or residual abnormal hypermetabolic adenopat hy.
== END | disposition home or self-care (01) ==
LOC: RADPETMAIN 07:23
PROVIDERS: ATTEND Internal Medicine Hematology & Oncology
DX: C85.98 Non-Hodgkin lymphoma, unspecified, lymph nodes of multiple sites (principal)
CPT/HCPCS: 78815; A9552

== ENCOUNTER 2020-05-04 11:52 | Inpatient (IN) | payer MEDICARE, OTHER ==
--- NOTE | 2020-05-04 12:31 | ED ---
General Adult HPI - General Chief complaint: Chest Pain Stated complaint: trouble swallowing/cancer pt Time Seen by Provider: 05/04/20 12:00 Source: patient, RN notes reviewed, old records reviewed Mode of arrival: ambulatory Limitations: no limitations - History of Present Illness Initial comments: This is a 64-year-old female who presents emergency Department with stage IV non-Hodgkin's lymphoma. Patient states over the last week she found it more more difficulty swallowing. Patient states she's afraid she might aspirate. Patient denies having aspirated. Patient states she is able to get a few sips of fluids down but is becoming more difficult. Patient denies any fever chills per patient states she is a bit short of breath. Patient states when she eats or swallows she feels a fullness in her chest. Patient states last time she ate anything significant was last Thursday. Patient denies any abdominal pain. Patient denies any actual vomiting or diarrhea. Patient denies any recent injury or fall. - Related Data Home Medications Medication Instructions Recorded Confirmed Sertraline [Zoloft] 100 mg PO DAILY 06/05/14 05/04/20 Metoprolol Tartrate [Lopressor] 25 mg PO BID 10/08/15 05/04/20 clonazePAM [KlonoPIN] 0.5 mg PO BID PRN 10/25/18 05/04/20 Ondansetron HCl [Zofran] 4 mg PO Q4H PRN 12/15/18 05/04/20 Amitriptyline HCl [Elavil] 25 mg PO HS 01/24/19 05/04/20 Sertraline HCl [Zoloft] 50 mg PO DAILY 01/24/19 05/04/20 oxyCODONE-APAP 10-325MG [Percocet 1 tab PO QID PRN 03/14/19 05/04/20 10-325 mg] oxyCODONE ER [OxyCONTIN] 20 mg PO Q12HR PRN 05/16/19 05/04/20 Cyclobenzaprine [Flexeril] 5 mg PO TID PRN 01/11/20 05/04/20 Fluticasone Propionate [Flonase 1 spray EA NOSTRIL DAILY PRN 01/11/20 05/04/20 Allergy Relief] Calcitriol [Rocaltrol] 0.25 mcg PO Q7D 05/04/20 05/04/20 Calcium Carbonate [Calcium] 600 mg PO DAILY 05/04/20 05/04/20 Ergocalciferol [Vitamin D2 (1250 1,250 mcg PO Q7D 05/04/20 05/04/20 Mcg = 78631 Iu)] Surinder Solution 5 ml PO QID 05/04/20 05/04/20 Levofloxacin [Levaquin] 500 mg PO DAILY 05/04/20 05/04/20 Phospha 250 1 tab PO TID 05/04/20 05/04/20 Sennosides/Docusate Sodium [Senna 1 - 2 cap PO BID 05/04/20 05/04/20 Plus 8.6-50 mg Softgel] Sodium Bicarbonate Tab 1,300 mg PO TID 05/04/20 05/04/20 lisinopriL [Zestril] 2.5 mg PO DAILY 05/04/20 05/04/20 Allergies Allergy/AdvReac Type Severity Reaction Status Date / Time NSAIDS (Non-Steroidal AdvReac Swelling, Verified 05/04/20 11:59 Anti-Inflamma "shuts kidneys down" Review of Systems ROS Statement: Those systems with pertinent positive or pertinent negative responses have been documented in the HPI. ROS Other: All systems not noted in ROS Statement are negative. Past Medical History Past Medical History: Atrial Fibrillation, Cancer, Chest Pain / Angina, Eye Disorder, Hyperlipidemia, Hypertension, Liver Disease, Musculoskeletal Disorder, Pneumonia, Renal Disease Additional Past Medical History / Comment(s): 2006 NHL (lymphoma) - no tx needed, then returned 10/2018, received 2 rounds chemo, last in 05/2019 ([facility] chemo), Hepatitis C-tx 2019 & told cured, DDD, Chronic LBP/cervical pain (Dr. Cummins for pain), migraines, decreased renal function w/ steroid/nsaid use. Hx glaucoma. Varicose veins. Gallstones. Port in Rt subclavian. CURRENTLY HAS 5 MASSES-1 LT SIDE-1 RT SIDE-BILAT TAILBONE, 1 RT UPPER THIGH. STATES LT SIDE IS MOST PAINFUL History of Any Multi-Drug Resistant Organisms: None Reported Past Surgical History: Cholecystectomy, Heart Catheterization, Orthopedic Surgery Additional Past Surgical History / Comment(s): 2006 R groin lump biopsy, 10/28/18 Exploratory laparotomy w/ tubo-ovarian cancer/R salpingo-oophorectomy/removal pelvic lymph nodes, 12/03/18 Port a cath, 12/20/18 cardiac cath-normal/CHIQUIS, 2015 cardiac cath, vaginal polypectomy, R shoulder arthroscopy/rotator cuff repair x2, R knee arthroscopy, ORIF R ankle with plates/screws. PORT A CATH Past Anesthesia/Blood Transfusion Reactions: No Reported Reaction Past Psychological History: Depression Smoking Status: Current some day smoker Past Alcohol Use History: None Reported Past Drug Use History: None Reported - Past Family History Mother Family Medical History: COPD, Coronary Artery Disease (CAD), Myocardial Infarction ([place]), Seizure Disorder Additional Family Medical History / Comment(s): Mother had a [place] at the age of 76yrs. She from fall/facial injury and aspirated blood. Father Family Medical History: Coronary Artery Disease (CAD), Seizure Disorder Additional Family Medical History / Comment(s): Father had a seizure while driving resulting in a MVA in which he . General Exam - General Exam Comments Initial Comments: GENERAL: Patient is well-developed and well-nourished. Patient is nontoxic and well- hydrated and is in mild distress. ENT: Neck is soft and supple. No significant lymphadenopathy is noted. Oropharynx is clear. Moist mucous membranes. Neck has full range of motion without eliciting any pain. EYES: The sclera were anicteric and conjunctiva were pink and moist. Extraocular movements were intact and pupils were equal round and reactive to light. Eyelids were unremarkable. PULMONARY: Unlabored respirations. Good breath sounds bilaterally. No audible rales rhonchi or wheezing was noted. CARDIOVASCULAR: Patient is tachycardic at about 110 beats a minute ABDOMEN: Soft and nontender with normal bowel sounds. No palpable organomegaly was noted. There is no palpable pulsatile mass. SKIN: Skin is clear with no lesions or rashes and otherwise unremarkable. NEUROLOGIC: Patient is alert and oriented x3. Cranial nerves II through XII are grossly intact. Motor and sensory are also intact. Normal speech, volume and content. Symmetrical smile. MUSCULOSKELETAL: Normal extremities with adequate strength and full range of motion. No lower extremity swelling or edema. No calf tenderness. LYMPHATICS: No significant lymphadenopathy is noted PSYCHIATRIC: Normal psychiatric evaluation. Limitations: no limitations Course Vital Signs 05/04/20 05/04/20 05/04/20 11:57 12:21 12:25 Temperature 99.9 F H Pulse Rate 124 H 109 H Pulse Rate [ 109 H [employer] ] Respiratory 22 22 22 Rate Blood Pressure 90/56 126/65 O2 Sat by Pulse 100 97 Oximetry Medical Decision Making - Medical Decision Making EKG shows sinus tachycardia at 111 bpm TX interval 226 QRS is 132 QT interval 36 QTC is 524. Patient's EKG shows a left bundle branch block. Patient is leukopenic. Patient still having difficulty swallowing any fluids in the emergency department though she was able to suck on some ice and that did go down. I spoke with sheet agreed to admit the patient admitted the patient I consult to surgery and I consulted Dr. kohli - Lab Data Result diagrams: 05/04/20 12:52 05/04/20 12:52 Lab Results 05/04/20 05/04/20 05/04/20 Range/Units 12:52 12:52 12:52 WBC 0.4 L* (3.8-10.6) k/uL RBC 2.34 L (3.80-5.40) m/uL Hgb 8.2 L (11.4-16.0) gm/dL Hct 23.8 L (34.0-46.0) % MCV 101.8 H (80.0-100.0) fL MCH 35.1 H (25.0-35.0) pg MCHC 34.5 (31.0-37.0) g/dL RDW 17.8 H (11.5-15.5) % Plt Count 41 L (150-450) k/uL MPV 8.8 Differential Comment Manual Slide Review Performed Poikilocytosis Slight Poikilocytosis (manual Present Anisocytosis Slight Macrocytosis Moderate PT 11.4 (9.0-12.0) sec INR 1.1 (<1.2) APTT 82.2 H (22.0-30.0) sec Sodium 134 L (137-145) mmol/L Potassium 3.0 L (3.5-5.1) mmol/L Chloride 107 (98-107) mmol/L Carbon Dioxide 17 L (22-30) mmol/L Anion Gap 10 mmol/L BUN 18 H (7-17) mg/dL Creatinine 1.98 H (0.52-1.04) mg/dL Est GFR (CKD-EPI)AfAm 30 (>60 ml/min/1.73 sqM) Est GFR (CKD-EPI)NonAf 26 (>60 ml/min/1.73 sqM) Glucose 141 H (74-99) mg/dL Calcium 7.7 L (8.4-10.2) mg/dL Magnesium 2.0 (1.6-2.3) mg/dL Total Bilirubin 0.7 (0.2-1.3) mg/dL AST 17 (14-36) U/L ALT 9 (4-34) U/L Alkaline Phosphatase 54 (38-126) U/L Troponin I (0.000-0.034) ng/mL Total Protein 7.4 (6.3-8.2) g/dL Albumin 4.2 (3.5-5.0) g/dL Urine Color Urine Appearance (Clear) Urine pH (5.0-8.0) Ur Specific Mary [place] (1.001-1.035) Urine Protein (Negative) Urine Glucose (UA) (Negative) Urine Ketones (Negative) Urine Blood (Negative) Urine Nitrite (Negative) Urine Bilirubin (Negative) Urine Urobilinogen (<2.0) mg/dL Ur Leukocyte Esterase (Negative) Urine RBC (0-5) /hpf Urine WBC (0-5) /hpf Ur Squamous Epith Cells (0-4) /hpf Coronavirus (PCR) (Not Detectd) 05/04/20 05/04/20 05/04/20 Range/Units 12:52 12:52 13:55 WBC (3.8-10.6) k/uL RBC (3.80-5.40) m/uL Hgb (11.4-16.0) gm/dL Hct (34.0-46.0) % MCV (80.0-100.0) fL MCH (25.0-35.0) pg MCHC (31.0-37.0) g/dL RDW (11.5-15.5) % Plt Count (150-450) k/uL MPV Differential Comment Manual Slide Review Poikilocytosis Poikilocytosis (manual Anisocytosis Macrocytosis PT (9.0-12.0) sec INR (<1.2) APTT (22.0-30.0) sec Sodium (137-145) mmol/L Potassium (3.5-5.1) mmol/L Chloride (98-107) mmol/L Carbon Dioxide (22-30) mmol/L Anion Gap mmol/L BUN (7-17) mg/dL Creatinine (0.52-1.04) mg/dL Est GFR (CKD-EPI)AfAm (>60 ml/min/1.73 sqM) Est GFR (CKD-EPI)NonAf (>60 ml/min/1.73 sqM) Glucose (74-99) mg/dL Calcium (8.4-10.2) mg/dL Magnesium (1.6-2.3) mg/dL Total Bilirubin (0.2-1.3) mg/dL AST (14-36) U/L ALT (4-34) U/L Alkaline Phosphatase (38-126) U/L Troponin I <0.012 (0.000-0.034) ng/mL Total Protein (6.3-8.2) g/dL Albumin (3.5-5.0) g/dL Urine Color Yellow Urine Appearance Clear (Clear) Urine pH 8.0 (5.0-8.0) Ur Specific [place] 1.015 (1.001-1.035) Urine Protein 2+ H (Negative) Urine Glucose (UA) 3+ H (Negative) Urine Ketones Negative (Negative) Urine Blood Trace H (Negative) Urine Nitrite Negative (Negative) Urine Bilirubin Negative (Negative) Urine Urobilinogen <2.0 (<2.0) mg/dL Ur Leukocyte Esterase Negative (Negative) Urine RBC 1 (0-5) /hpf Urine WBC 2 (0-5) /hpf Ur Squamous Epith Cells 4 (0-4) /hpf Coronavirus (PCR) Not Detected (Not Detectd) 05/04/20 Range/Units 13:55 WBC (3.8-10.6) k/uL RBC (3.80-5.40) m/uL Hgb (11.4-16.0) gm/dL Hct (34.0-46.0) % MCV (80.0-100.0) fL MCH (25.0-35.0) pg MCHC (31.0-37.0) g/dL RDW (11.5-15.5) % Plt Count (150-450) k/uL MPV Differential Comment Manual Slide Review Poikilocytosis Poikilocytosis (manual Anisocytosis Macrocytosis PT (9.0-12.0) sec INR (<1.2) APTT 28.8 (22.0-30.0) sec Sodium (137-145) mmol/L Potassium (3.5-5.1) mmol/L Chloride (98-107) mmol/L Carbon Dioxide (22-30) mmol/L Anion Gap mmol/L BUN (7-17) mg/dL Creatinine (0.52-1.04) mg/dL Est GFR (CKD-EPI)AfAm (>60 ml/min/1.73 sqM) Est GFR (CKD-EPI)NonAf (>60 ml/min/1.73 sqM) Glucose (74-99) mg/dL Calcium (8.4-10.2) mg/dL Magnesium (1.6-2.3) mg/dL Total Bilirubin (0.2-1.3) mg/dL AST (14-36) U/L ALT (4-34) U/L Alkaline Phosphatase (38-126) U/L Troponin I (0.000-0.034) ng/mL Total Protein (6.3-8.2) g/dL Albumin (3.5-5.0) g/dL Urine Color Urine Appearance (Clear) Urine pH (5.0-8.0) Ur Specific Mary [place] (1.001-1.035) Urine Protein (Negative) Urine Glucose (UA) (Negative) Urine Ketones (Negative) Urine Blood (Negative) Urine Nitrite (Negative) Urine Bilirubin (Negative) Urine Urobilinogen (<2.0) mg/dL Ur Leukocyte Esterase (Negative) Urine RBC (0-5) /hpf Urine WBC (0-5) /hpf Ur Squamous Epith Cells (0-4) /hpf Coronavirus (PCR) (Not Detectd) Disposition Clinical Impression: Dysphagia Disposition: ADMITTED IP TO THIS [facility] Referrals: Anju Young III, MD [Primary Care Provider] - 1-2 days Time of Disposition: 15:31
[2020-05-04 13:13] LABS: Albumin 4.2 g/dL (3.5-5.0); Calcium 7.7 mg/dL (8.4-10.2); Total Bilirubin 0.7 mg/dL (0.2-1.3); Total Protein 7.4 g/dL (6.3-8.2)
[2020-05-04 13:18] LABS: Anisocytosis Slight; HCT 23.8 % (34.0-46.0); HGB 8.2 gm/dL (11.4-16.0); MCH 35.1 pg (25.0-35.0); MCHC 34.5 g/dL (31.0-37.0); MCV 101.8 fL (80.0-100.0); Macrocytosis Moderate; Mean Platelet Volume 8.8; Poikilocytosis Slight; RBC 2.34 m/uL (3.80-5.40); RDW 17.8 % (11.5-15.5)
--- NOTE | 2020-05-04 13:20 | XR ---
EXAMINATION TYPE: XR chest 2V DATE OF EXAM: 05/04/2020 COMPARISON: Chest x-ray 12/03/2018, CT dated 01/11/2020, CT 83 HISTORY: Chest pain TECHNIQUE: Frontal and lateral views of the chest are obtained. FINDINGS: There is no focal air space opacity, pleural effusion, or pneumothorax seen. The cardiac silhouette size is within normal limits. Port-A-Cath is stable. Aorta is dense. Spinal curvature is n oted. Nodular density is stable on the left lower lobe represents calcified granuloma measuring 1 cm, stable. Compression deformities noted the lower thoracic spine of questionable age. There are overly ing artifacts. The osseous structures are intact. IMPRESSION: No acute cardiopulmonary process.
[2020-05-04 13:25] LABS: WBC 0.4 k/uL (3.8-10.6)
[2020-05-04 13:38] LABS: INR 1.1 (<1.2); Prothrombin Time 11.4 sec (9.0-12.0)
[2020-05-04 13:42] LABS: Partial Thromboplastin Time 82.2 sec (22.0-30.0)
[2020-05-04 13:49] LABS: Platelet Count 41 k/uL (150-450); Poikilocytosis (M) Present
[2020-05-04 14:10] LABS: Appearance,Urine Clear (Clear); Bilirubin,Urine Negative (Negative); Blood,Urine Trace (Negative); Color,Urine Yellow; Glucose,Urine (UA) 3+ (Negative); Ketones,Urine Negative (Negative); Leukocyte Esterase,Urine Negative (Negative); Nitrite,Urine Negative (Negative); Protein,Urine 2+ (Negative); RBC,Urine 1 /hpf (0-5); Specific Gravity,Urine 1.015 (1.001-1.035); Squamous Epithelial Cell,Urine 4 /hpf (0-4); Urobilinogen,Urine <2.0 mg/dL (<2.0); WBC,Urine 2 /hpf (0-5)
[2020-05-04] MEDS ORDERED: SODIUM CHLORIDE 0.9% 1,000 ML IV ONE (15:41)
--- NOTE | 2020-05-04 20:42 | P.HPIM ---
History of Present Illness This is a pleasant 64-year-old patient of Dr. Weller. She has a past medical history high-grade B-cell non-Hodgkin's lymphoma, Status post chemotherapy and she follows up with Dr. Gutiérrez. benign ovarian fibroma.PET scan showed areas of multiple uptake including left axilla, mediastinum, left breast, multiple areas in the retro-peritoneal.hepatitis C . Mild cardiomyopathy with EF of 45% with negative cardiac cath. Status post chemotherapy, Atrial fibrillation, hyperlipidemia, hypertension chronic low back pain and cervical pain where she follows up with Dr. Cummins, migraine, chronic kidney disease stage IV. She is a patient of Dr. Young and follow-up with Dr. Chau and Dr. West. Her pain management is Dr. Cummins Patient presents because of swallowing difficulty and decrease swallowing. Patient cannot eat she feels that food gets stuck in her throat and also she could not drink which is associated with vomiting. Sometimes she'll wake up in the middle of night choking. Associated with pain in the abdomen In the epigastric and radiating in the [place] up to the throat, followed by the patient has tenderness/stent and burning even without eating patient feels something stuck in her throat She denies chest pain or dyspnea or cough and only if she drinks. She is smoker about half pack per day quit about 2 weeks ago, no alcohol or illicit drugs. She follows up with Dr. Gutiérrez, she recently got chemotherapy and she has a follow- up appointment next month in May. Patient is tachycardic around 110, still vitals are stable wbc 0.4 K , Hb 8.2, platelets 41K, INR is 1.1. Sodium is 134, potassium 3.0, creatinine 1.9 which is close to her baseline of 2-2.2. Liver enzymes not elevated. Troponin is less than 0.012. Urine showing 2+ protein 3+ glucose, no evidence of infection. Coronavirus nondetected. EKG shows sinus tachycardia at 111, with QTC 524 and left bundle-branch block Chest x-ray: No acute process Review of Systems CONSTITUTIONAL: No fever, no malaise, no fatigue. HEENT: No recent visual problems or hearing problems. Denied any sore throat. CARDIOVASCULAR: No orthopnea, PND, no palpitations, no syncope. PULMONARY: No shortness of breath, no cough, no hemoptysis. GASTROINTESTINAL: No diarrhea, Normoactive bowel sounds. NEUROLOGICAL: No headaches, no weakness, no numbness. HEMATOLOGICAL: Denies any bleeding or petechiae. GENITOURINARY: Denies any burning micturition, frequency, or urgency. MUSCULOSKELETAL/RHEUMATOLOGICAL: Denies any joint pain, swelling, or any muscle pain. ENDOCRINE: Denies any polyuria or polydipsia. Past Medical History Past Medical History: Atrial Fibrillation, Cancer, Chest Pain / Angina, Eye Disorder, Hyperlipidemia, Hypertension, Liver Disease, Musculoskeletal Disorder, Pneumonia, Renal Disease Additional Past Medical History / Comment(s): 2006 NHL (lymphoma) - no tx needed, then returned 10/2018, has been receiving chemo at [facility] every 3 weeks since 2019- Last chemo 04/18/20, Hepatitis C-tx 2019 & told cured, DDD, Chronic LBP/cervical pain (Dr. Cummins for pain), migraines, decreased renal function w/ steroid/nsaid use. Hx glaucoma. Varicose veins. Gallstones. power port in Rt subclavian. History of Any Multi-Drug Resistant Organisms: None Reported Past Surgical History: Cholecystectomy, Heart Catheterization, Orthopedic Surgery Additional Past Surgical History / Comment(s): 2006 R groin lump biopsy, 10/28/18 Exploratory laparotomy w/ tubo-ovarian cancer/R salpingo-oophorectomy/removal pelvic lymph nodes, 12/03/18 Port a cath, 12/20/18 cardiac cath-normal/CHIQUIS, 2015 cardiac cath, vaginal polypectomy, R shoulder arthroscopy/rotator cuff repair x2, R knee arthroscopy, ORIF R ankle with plates/screws. Right chest infusaport placed. Past Anesthesia/Blood Transfusion Reactions: No Reported Reaction Past Psychological History: Depression Additional Psychological History / Comment(s): lives with spouse and 2 dogs. She used to work in medical coding/billing and factory work. Smoking Status: Former smoker Past Alcohol Use History: None Reported Additional Past Alcohol Use History / Comment(s): Smoking at age 14, up to 1 - 1 1/2 ppd, smoking occasional for 4 months Past Drug Use History: None Reported - Past Family History Mother Family Medical History: COPD, Coronary Artery Disease (CAD), Myocardial Infarction ([place]), Seizure Disorder Additional Family Medical History / Comment(s): Mother had a [place] at the age of 76yrs. She from fall/facial injury and aspirated blood. Father Family Medical History: Coronary Artery Disease (CAD), Seizure Disorder Additional Family Medical History / Comment(s): Father had a seizure while [employer] resulting in a MVA in which he . Medications and Allergies Home Medications Medication Instructions Recorded Confirmed Type Sertraline [Zoloft] 100 mg PO DAILY 06/05/14 05/04/20 History Metoprolol Tartrate [Lopressor] 25 mg PO BID 10/08/15 05/04/20 History clonazePAM [KlonoPIN] 0.5 mg PO BID PRN 10/25/18 05/04/20 History Ondansetron HCl [Zofran] 4 mg PO Q4H PRN 12/15/18 05/04/20 History Amitriptyline HCl [Elavil] 25 mg PO HS 01/24/19 05/04/20 History Sertraline HCl [Zoloft] 50 mg PO DAILY 01/24/19 05/04/20 History oxyCODONE-APAP 10-325MG [Percocet 1 tab PO QID PRN 03/14/19 05/04/20 History 10-325 mg] oxyCODONE ER [OxyCONTIN] 20 mg PO Q12HR PRN 05/16/19 05/04/20 History Cyclobenzaprine [Flexeril] 5 mg PO TID PRN 01/11/20 05/04/20 History Fluticasone Propionate [Flonase 1 spray EA NOSTRIL DAILY PRN 01/11/20 05/04/20 History Allergy Relief] Calcitriol [Rocaltrol] 0.25 mcg PO Q7D 05/04/20 05/04/20 History Calcium Carbonate [Calcium] 600 mg PO DAILY 05/04/20 05/04/20 History Ergocalciferol [Vitamin D2 (1250 1,250 mcg PO Q7D 05/04/20 05/04/20 History Mcg = [id number] Iu)] Surinder Solution 5 ml PO QID 05/04/20 05/04/20 History Levofloxacin [Levaquin] 500 mg PO DAILY 05/04/20 05/04/20 History Phospha 250 1 tab PO TID 05/04/20 05/04/20 History Sennosides/Docusate Sodium [Senna 1 - 2 cap PO BID 05/04/20 05/04/20 History Plus 8.6-50 mg Softgel] Sodium Bicarbonate Tab 1,300 mg PO TID 05/04/20 05/04/20 History lisinopriL [Zestril] 2.5 mg PO DAILY 05/04/20 05/04/20 History Allergies Allergy/AdvReac Type Severity Reaction Status Date / Time NSAIDS (Non-Steroidal AdvReac Swelling, Verified 05/04/20 11:59 Anti-Inflamma "shuts kidneys down" Physical Exam Vitals: Vital Signs Temp Pulse Pulse Resp BP BP Pulse Ox 05/04/20 17:11 99.4 F 109 H 17 117/64 97 05/04/20 16:28 99.0 F 110 H 20 113/58 100 05/04/20 15:46 99.4 F 109 H 20 128/57 99 05/04/20 12:25 109 H 22 126/65 97 05/04/20 12:21 109 H 22 05/04/20 11:57 99.9 F H 124 H 22 90/56 100 Intake and Output 05/04/20 05/04/20 05/04/20 06:59 14:59 22:59 Intake Total 75 Balance 75 Intake: Intake, IV Titration 75 Amount Sodium Chloride 0.9% 1, 75 000 ml @ 75 mls/hr IV . [id number] ONE Rx#:[id number] Other: # Voids 1 Weight 47.627 kg 47.627 kg GENERAL: The patient is alert and oriented x3, not in any acute distress. Patient is cachectic HEENT: Pupils are round and equally reacting to light. EOMI. No scleral icterus. No conjunctival pallor. Normocephalic, atraumatic. No pharyngeal erythema. No thyromegaly. CARDIOVASCULAR: S1 and S2 present. No murmurs, rubs, or gallops. PULMONARY: Chest is clear to auscultation, no wheezing or crackles. -ABDOMEN: Soft, epigastric tenderness, nondistended, normoactive bowel sounds. No palpable organomegaly. MUSCULOSKELETAL: No joint swelling or deformity. EXTREMITIES: No cyanosis, clubbing, or pedal edema. NEUROLOGICAL: Gross neurological examination did not reveal any focal deficits. SKIN: No rashes. No petechiae Results CBC & Chem 7: 05/04/20 12:52 05/04/20 12:52 Labs: Abnormal Lab Results - Last 24 Hours (Table) 05/04/20 05/04/20 05/04/20 Range/Units 12:52 12:52 12:52 WBC 0.4 L* (3.8-10.6) k/uL RBC 2.34 L (3.80-5.40) m/uL Hgb 8.2 L (11.4-16.0) gm/dL Hct 23.8 L (34.0-46.0) % MCV 101.8 H (80.0-100.0) fL MCH 35.1 H (25.0-35.0) pg RDW 17.8 H (11.5-15.5) % Plt Count 41 L (150-450) k/uL APTT 82.2 H (22.0-30.0) sec Sodium 134 L (137-145) mmol/L Potassium 3.0 L (3.5-5.1) mmol/L Carbon Dioxide 17 L (22-30) mmol/L BUN 18 H (7-17) mg/dL Creatinine 1.98 H (0.52-1.04) mg/dL Glucose 141 H (74-99) mg/dL Calcium 7.7 L (8.4-10.2) mg/dL Urine Protein (Negative) Urine Glucose (UA) (Negative) Urine Blood (Negative) 05/04/20 Range/Units 13:55 WBC (3.8-10.6) k/uL RBC (3.80-5.40) m/uL Hgb (11.4-16.0) gm/dL Hct (34.0-46.0) % MCV (80.0-100.0) fL MCH (25.0-35.0) pg RDW (11.5-15.5) % Plt Count (150-450) k/uL APTT (22.0-30.0) sec Sodium (137-145) mmol/L Potassium (3.5-5.1) mmol/L Carbon Dioxide (22-30) mmol/L BUN (7-17) mg/dL Creatinine (0.52-1.04) mg/dL Glucose (74-99) mg/dL Calcium (8.4-10.2) mg/dL Urine Protein 2+ H (Negative) Urine Glucose (UA) 3+ H (Negative) Urine Blood Trace H (Negative) Thrombosis Risk Factor Assmnt - Choose All That Apply Any of the Below Risk Factors Present?: Yes Other Risk Factors: Yes Each Risk Factor Represents 2 Points: Age 61-74 years, Malignancy Other congenital or acquired thrombophilia - If yes, enter type in comment: No Thrombosis Risk Factor Assessment Total Risk Factor Score: 4 Thrombosis Risk Factor Assessment Level: Moderate Risk Assessment and Plan Assessment: Dysphagia associated with epigastric pain radiating to the throat/odynophagia Stage IV B-cell non-Hodgkin lymphoma involving multiple areas including the left axilla, mediastinum, left breast and multiple retroperitoneal areas Pancytopenia mostly is related to her chemotherapy Chronic kidney disease, stage IV History of hepatitis C Mild cardiomyopathy with ejection fraction 45% Benign ovarian fibroma Paroxysmal atrial fibrillation, not on anticoagulation due to thrombocytopenia Hypertension Hyperlipidemia Chronic low back pain and cervical pain History of migraine Cachexia Plan: This is a pleasant 64 years old female with advanced non-Hodgkin lymphoma presents with dysphagia and abdominal pain. Keep the patient nothing by mouth, continue with Protonix. Gentle hydration. Surgical consult. Hematology/oncolo gy consult. Pain management Also order CT of the abdomen and pelvis without contrast due to her kidney disease and without oral consult due to her dysphagia, rule out bowel obstruction Labs and medication were reviewed.. Continue same treatment. Continue with symptomatic treatment. Resume home medication. Monitor lytes and vitals. DVT and GI prophylaxis. Further recommendations depends on the clinical course of the patient DVT prophylaxis: no Subcutaneous heparin due to her thrombocytopenia GI Prophylaxis: Ppi PT/OT: Pending Prognosis is guarded
--- NOTE | 2020-05-04 22:42 | CT ---
EXAMINATION TYPE: CT abdomen pelvis wo con DATE OF EXAM: 05/04/2020 COMPARISON: 04/28/2020 HISTORY: Epigastric abdominal pain, vomiting and dysphagia. CT DLP: 228.9 mGycm Automated exposure control for dose reduction was used. Images were obtained from the diaphragm to the floor the pelvis with no contrast. Lung bases are clear of infiltrate. There is no pleural effusion. Heart size is normal. There is no p ericardial effusion. Liver spleen pancreas stomach appear intact. The bile ducts are not dilated. There are clips from cho lecystectomy. There is no adrenal mass. Kidneys have normal size. There is no hydronephrosis. Ureters are not dilat ed. There are a few abdominal pelvic lymph nodes that measure up to 1 cm. Bladder distends smoothly. Uterus appears normal. There is no inguinal hernia. There is no free fluid in the pelvis. There is thickening of the right side piriformis muscle in the posterior pelvis on th e right side which is unchanged compared to 04/28/2020 but is new compared to 05/12/2019 CT scan. There is thickening of the right gluteal musculature which is much improved compared to more recent exam of 01/11/2020. This could be an infiltrative process. There is subcutaneous density over the right gluteal muscles. This could be a bruise. Lumbar vertebra have normal alignment. There is depression of the superior endplate of L3 25%. There is 25% wedging of T12 vertebra. T12 fracture is new compared to 05/12/2019. There is no mesenteric edema. There is no ascites or free air. There is no bowel obstruction. Appendi x is not seen. There is no inguinal hernia. IMPRESSION: Right side piriform muscle thickening and gluteal thickening improved compared to 01/11/2020 and could be related to positive treatment response. Or resolving hematoma. T12 compression fracture not changed compared to 01/11/2020. Old L3 compression fracture.
[2020-05-04] MEDS ORDERED: MORPHINE SULFATE 4 MG/ML SYRINGE IVP PRN (23:05)
[2020-05-04] MEDS ORDERED: LORazepam 2 MG/ML INJ IV PRN (23:10)
[2020-05-05] MEDS: HYDROmorphone 0.5 MG/0.5 ML SYRINGE IVP PRN (00:09)
[2020-05-05] MEDS: PANTOPRAZOLE 40 MG/10 ML VIAL IVP SCH ×3 (00:12→20:25)
[2020-05-05] MEDS: HEPARIN SODIUM,PORCINE 5,000 UNIT/ML 1 ML VIAL SQ SCH ×3 (00:15→20:25)
[2020-05-05] MEDS ORDERED: Potassium Replacement Protocol 1 EACH MISC MISCELLANE PRN ×2 (00:19→04:36)
[2020-05-05] MEDS: POTASSIUM CHLORIDE 20 MEQ in WATER FOR INJECTION 1 100ML.BAG IVPB SCH ×2 (05:07→08:16)
[2020-05-05 09:33] LABS: African American GFR (CKD) 33.6 (60.0-200.0); Anion Gap 9.2 mmol/L (4.00-12.00); BUN/Creat Ratio 12.22 Ratio (12.00-20.00); Calcium 7.4 mg/dL (8.7-10.3); Carbon Dioxide 17.8 mmol/L (21.6-31.8); Magnesium 2.1 mg/dL (1.5-2.4)
[2020-05-05 10:09] LABS: Basophils # (M) 0.02 X 10*3/uL (0.00-0.10); Eosinophils # (M) 0.04 X 10*3/uL (0.04-0.35); HCT 21.8 % (37.2-46.3); HGB 7.5 g/dL (12.0-15.0); Lymphocytes # (M) 0.03 X 10*3/uL (0.90-5.00); MCH 35.9 pg (27.0-32.0); MCHC 34.4 g/dL (32.0-37.0); MCV 104.3 fL (80.0-97.0); Mean Platelet Volume 9.8 fL (9.5-12.2); Monocytes # (M) 0.18 X 10*3/uL (0.20-1.00); Neutrophils # (M) 0.13 X 10*3/uL (2.00-8.90); Neutrophils % (M) 32 %; Platelet Count 44 X 10*3/uL (140-440); RBC 2.09 X 10*6/uL (4.10-5.20)
[2020-05-05] MEDS ORDERED: MORPHINE SULFATE 4 MG/ML SYRINGE IVP PRN (10:17)
[2020-05-05 11:53] LABS: African American GFR (CKD) 33 (>60 ml/min/1.73 sqM); Anion Gap 11 mmol/L; Blood Urea Nitrogen 20 mg/dL (7-17); Calcium 6.9 mg/dL (8.4-10.2); Carbon Dioxide 14 mmol/L (22-30); Chloride 111 mmol/L (98-107); Glucose 105 mg/dL (74-99); LDH 405 U/L (313-618); Non-African American GFR(CKD) 28 (>60 ml/min/1.73 sqM); Potassium 3.8 mmol/L (3.5-5.1); Sodium 136 mmol/L (137-145); Uric Acid 2.1 mg/dL (3.7-7.4)
[2020-05-05] MEDS ORDERED: LEVOFLOXACIN 500MG-D5W PMX 500 MG in DEXTROSE/WATER 1 100ML.BAG IVPB ONE (12:00)
[2020-05-05] MEDS: DEXTROSE 5%-0.45% NACL 1,000 ML IV SCH (12:06)
--- NOTE | 2020-05-05 12:35 | P.PN ---
Subjective This is a pleasant 64-year-old patient of Dr. Weller. She has a past medical history high-grade B-cell non-Hodgkin's lymphoma, Status post chemotherapy and she follows up with Dr. Gutiérrez. benign ovarian fibroma.PET scan showed areas of multiple uptake including left axilla, mediastinum, left breast, multiple areas in the retro-peritoneal.hepatitis C . Mild cardiomyopathy with EF of 45% with negative cardiac cath. Status post chemotherapy, Atrial fibrillation, hyperlipidemia, hypertension chronic low back pain and cervical pain where she follows up with Dr. Cummins, migraine, chronic kidney disease stage IV. She is a patient of Dr. Young and follow-up with Dr. Chau and Dr. West. Her pain management is Dr. Cummins Patient presents because of swallowing difficulty and decrease swallowing. Patient cannot eat she feels that food gets stuck in her throat and also she could not drink which is associated with vomiting. Sometimes she'll wake up in the middle of night choking. Associated with pain in the abdomen In the epigastric and radiating in the [place] up to the throat, followed by the patient has tenderness/stent and burning even without eating patient feels something stuck in her throat She denies chest pain or dyspnea or cough and only if she drinks. She is smoker about half pack per day quit about 2 weeks ago, no alcohol or illicit drugs. She follows up with Dr. Gutiérrez, she recently got chemotherapy and she has a follow-up appointment next month in May. Patient is tachycardic around 110, still vitals are stable wbc 0.4 K , Hb 8.2, platelets 41K, INR is 1.1. Sodium is 134, potassium 3.0, creatinine 1.9 which is close to her baseline of 2-2.2. Liver enzymes not elevated. Troponin is less than 0.012. Urine showing 2+ protein 3+ glucose, no evidence of infection. Coronavirus nondetected. EKG shows sinus tachycardia at 111, with QTC 524 and left bundle-branch block Chest x-ray: No acute process 05/05/2020 Patient presents with dysphagia and something stuck feeling in her throat. No oral thrush on inspection. She has epigastric pain and tenderness. No bowel movement or gas CT of the abdomen showing normal obstruction. Surgical team were consulted Keep patient nothing by mouth. Increase pain medication slightly as per patient Consult oncology team for her pancytopenia related to her non-Hodgkin lymphoma and chemotherapy Review of Systems CONSTITUTIONAL: No fever, no malaise, no fatigue. HEENT: No recent visual problems or hearing problems. Denied any sore throat. CARDIOVASCULAR: No orthopnea, PND, no palpitations, no syncope. PULMONARY: No shortness of breath, no cough, no hemoptysis. GASTROINTESTINAL: No diarrhea, Normoactive bowel sounds. NEUROLOGICAL: No headaches, no weakness, no numbness. Active Medications Generic Name Dose Route Start Last Admin Trade Name Freq PRN Reason Stop Dose Admin Acyclovir 400 mg 05/05/20 11:45 Acyclovir 200 Mg Cap PO TID MC Al Hydroxide/Mg Hydroxide 30 0 ml 05/05/20 12:15 ml/ Lidocaine HCl 30 ml/ PO Diphenhydramine HCl 75 mg/ TID MC Nystatin 3,000,000 unit Filgrastim-Sndz 300 mcg 05/05/20 18:00 Filgrastim-Sndz 300 Mcg/0.5 Ml Syringe SQ DAILY@1800 [facility] Heparin Sodium (Porcine) 5,000 unit 05/04/20 23:15 05/05/20 08:16 Heparin Sodium,Porcine 5,000 Unit/Ml 1 Ml Vial SQ 5,000 unit Q12HR MC Administration Hydromorphone HCl 0.5 mg 05/04/20 23:05 05/05/20 00:09 Hydromorphone 0.5 Mg/0.5 Ml Syringe IVP 0.5 mg Q3HR PRN Administration Pain Hydromorphone HCl 1 mg 05/05/20 10:18 Hydromorphone 1 Mg/Ml 1 Ml Syringe IVP Q4HR PRN Pain Scale 9 To 10 Dextrose/Sodium Chloride 1,000 mls @ 75 mls/hr 05/05/20 10:30 05/05/20 12:06 Dextrose 5%-1/2ns Iv Soln IV Not Given .[id number] MC Levofloxacin 500 mg/ IV 100 mls @ 100 mls/hr 05/05/20 12:00 Solution IVPB 05/05/20 12:59 ONCE ONE Dextrose/Sodium Chloride 1,000 mls @ 75 mls/hr 05/05/20 12:00 Dextrose 5%-Ns Iv Soln IV .[id number] MC Levofloxacin/Dextrose 250 mg/ 50 mls @ 50 mls/hr 05/06/20 12:00 IV Solution IVPB Q24H MC Lorazepam 0.5 mg 05/04/20 23:10 Lorazepam 2 Mg/Ml Inj IV Q12HR PRN Anxiety Miscellaneous Information 1 each 05/05/20 00:19 Potassium Replacement Protocol 1 Each Misc MISCELLANE DAILY PRN Per Protocol Protocol Miscellaneous Information 1 each 05/05/20 04:36 Potassium Replacement Protocol 1 Each Misc MISCELLANE DAILY PRN Per Protocol Protocol Pantoprazole Sodium 40 mg 05/04/20 23:15 05/05/20 08:15 Pantoprazole 40 Mg/10 Ml Vial IVP 40 mg BID MC Administration Objective - Vital Signs Vital signs: Vital Signs Temp 98.5 F 05/05/20 05:00 Pulse 105 H 05/05/20 08:30 Resp 16 05/05/20 08:30 BP 105/63 05/05/20 05:00 Pulse Ox 99 05/05/20 05:00 Intake & Output 05/04/20 05/05/20 05/05/20 18:59 06:59 18:59 Intake Total 75 750 Balance 75 750 Weight 47.627 kg Intake: Intake, IV Titration 75 750 Amount Sodium Chloride 0.9% 1, 75 750 000 ml @ 75 mls/hr IV . [id number] ONE Rx#:[id number] Other: Voiding Method Toilet Toilet # Voids 1 4 - Exam -GENERAL: The patient is alert and oriented x3, not in any acute distress. Thin built HEENT: Pupils are round and equally reacting to light. EOMI. No scleral icterus. No conjunctival pallor. Normocephalic, atraumatic. No pharyngeal erythema. No thyromegaly. CARDIOVASCULAR: S1 and S2 present. No murmurs, rubs, or gallops. PULMONARY: Chest is clear to auscultation, no wheezing or crackles. -ABDOMEN: Soft, epigastric tenderness, nondistended, normoactive bowel sounds. No palpable organomegaly. MUSCULOSKELETAL: No joint swelling or deformity. EXTREMITIES: No cyanosis, clubbing, or pedal edema. NEUROLOGICAL: Gross neurological examination did not reveal any focal deficits. SKIN: No rashes. no petechiae. - Labs CBC & Chem 7: 05/05/20 05:31 05/05/20 11:16 Labs: Abnormal Lab Results - Last 24 Hours (Table) 05/04/20 05/04/20 05/04/20 Range/Units 12:52 12:52 12:52 WBC 0.4 L* (3.8-10.6) k/uL RBC 2.34 L (3.80-5.40) m/uL Hgb 8.2 L (11.4-16.0) gm/dL Hct 23.8 L (34.0-46.0) % MCV 101.8 H (80.0-100.0) fL MCH 35.1 H (25.0-35.0) pg RDW 17.8 H (11.5-15.5) % Plt Count 41 L (150-450) k/uL Plt Count Comment Neutrophils # (Manual) (2.00-8.90) X 10*3/uL Lymphocytes # (Manual) (0.90-5.00) X 10*3/uL Monocytes # (Manual) (0.20-1.00) X 10*3/uL APTT 82.2 H (22.0-30.0) sec Sodium 134 L (137-145) mmol/L Potassium 3.0 L (3.5-5.1) mmol/L Chloride (96-109) mmol/L Carbon Dioxide 17 L (22-30) mmol/L BUN 18 H (7-17) mg/dL Creatinine 1.98 H (0.52-1.04) mg/dL Est GFR (CKD-EPI)AfAm (60.0-200.0) Est GFR (CKD-EPI)NonAf (60.0-200.0) Glucose 141 H (74-99) mg/dL Uric Acid (3.7-7.4) mg/dL Calcium 7.7 L (8.4-10.2) mg/dL Urine Protein (Negative) Urine Glucose (UA) (Negative) Urine Blood (Negative) 05/04/20 05/05/20 05/05/20 Range/Units 13:55 05:31 05:31 WBC 0.40 L* (3.8-10.6) k/uL RBC 2.09 L (3.80-5.40) m/uL Hgb 7.5 L (11.4-16.0) gm/dL Hct 21.8 L (34.0-46.0) % MCV 104.3 H (80.0-100.0) fL MCH 35.9 H (25.0-35.0) pg RDW 16.0 H (11.5-15.5) % Plt Count 44 L (150-450) k/uL Plt Count Comment A Neutrophils # (Manual) 0.13 L* (2.00-8.90) X 10*3/uL Lymphocytes # (Manual) 0.03 L (0.90-5.00) X 10*3/uL Monocytes # (Manual) 0.18 L (0.20-1.00) X 10*3/uL APTT (22.0-30.0) sec Sodium (137-145) mmol/L Potassium 3.0 L (3.5-5.1) mmol/L Chloride 111 H (96-109) mmol/L Carbon Dioxide 17.8 L (22-30) mmol/L BUN (7-17) mg/dL Creatinine 1.8 H (0.52-1.04) mg/dL Est GFR (CKD-EPI)AfAm 33.6 L (60.0-200.0) Est GFR (CKD-EPI)NonAf 29.0 L (60.0-200.0) Glucose (74-99) mg/dL Uric Acid (3.7-7.4) mg/dL Calcium 7.4 L (8.4-10.2) mg/dL Urine Protein 2+ H (Negative) Urine Glucose (UA) 3+ H (Negative) Urine Blood Trace H (Negative) 05/05/20 Range/Units 11:16 WBC (3.8-10.6) k/uL RBC (3.80-5.40) m/uL Hgb (11.4-16.0) gm/dL Hct (34.0-46.0) % MCV (80.0-100.0) fL MCH (25.0-35.0) pg RDW (11.5-15.5) % Plt Count (150-450) k/uL Plt Count Comment Neutrophils # (Manual) (2.00-8.90) X 10*3/uL Lymphocytes # (Manual) (0.90-5.00) X 10*3/uL Monocytes # (Manual) (0.20-1.00) X 10*3/uL APTT (22.0-30.0) sec Sodium 136 L (137-145) mmol/L Potassium (3.5-5.1) mmol/L Chloride 111 H (96-109) mmol/L Carbon Dioxide 14 L (22-30) mmol/L BUN 20 H (7-17) mg/dL Creatinine 1.84 H (0.52-1.04) mg/dL Est GFR (CKD-EPI)AfAm (60.0-200.0) Est GFR (CKD-EPI)NonAf (60.0-200.0) Glucose 105 H (74-99) mg/dL Uric Acid 2.1 L (3.7-7.4) mg/dL Calcium 6.9 L (8.4-10.2) mg/dL Urine Protein (Negative) Urine Glucose (UA) (Negative) Urine Blood (Negative) Assessment and Plan Assessment: Dysphagia associated with epigastric pain radiating to the throat/odynophagia Stage IV B-cell non-Hodgkin lymphoma involving multiple areas including the left axilla, mediastinum, left breast and multiple retroperitoneal areas Pancytopenia mostly is related to her chemotherapy Chronic kidney disease, stage IV History of hepatitis C Mild cardiomyopathy with ejection fraction 45% Benign ovarian fibroma Paroxysmal atrial fibrillation, not on anticoagulation due to thrombocytopenia Hypertension Hyperlipidemia Chronic low back pain and cervical pain History of migraine Cachexia Plan: This is a pleasant 64 years old female with advanced non-Hodgkin lymphoma presents with dysphagia and abdominal pain. Keep the patient nothing by mouth, continue with Protonix. Gentle hydration. Surgical consult. Hematology/oncology consult. Pain management Also order CT of the abdomen and pelvis without contrast : no bowel obstruction Labs and medication were reviewed.. Continue same treatment. Continue with symptomatic treatment. Resume home medication. Monitor lytes and vitals. DVT and GI prophylaxis. Further recommendations depends on the clinical course of the patient DVT prophylaxis: no Subcutaneous heparin due to her thrombocytopenia GI Prophylaxis: Ppi PT/OT: Pending Prognosis is guarded
[2020-05-05] MEDS: DEXTROSE 5%-0.9% NACL 1,000 ML IV SCH (13:03)
[2020-05-05] MEDS: ACYCLOVIR 200 MG CAP PO SCH ×3 (13:03→23:22)
[2020-05-05] MEDS: HYDROmorphone 1 MG/ML 1 ML SYRINGE IVP PRN ×2 (13:23→20:26)
[2020-05-05 14:24] VITALS: BMI 17.4
--- NOTE | 2020-05-05 15:06 | P.CONS ---
History of Present Illness - Reason for Consult Consult date: 05/05/20 dysphagia - History of Present Illness Ms Quiroz is a pleasant white female, who was referred here to establish care for a history of non-Hodgkin's lymphoma. The patient states that she had felt a lump in her right groin in 2006. This was the size of a grape. She was living in the [place] area at that time. She had a biopsy at [facility] ( now [facility]) at the time. She states that she was told that it was a non-Hodgkin's lymphoma, and she had lymph nodes both above and below the diaphragm. She was seen by Dr. Gonzalez, and observation was recommended. However she did not follow-up since 2007 and move to the [facility]. She has not had any oncology care since. The patient had been complaining of having some discomfort in the left upper chest which was overall nonspecific. She had a mammogram on 04/24/17 which revealed an asymmetric density, with a follow-up ultrasound recommended. She became concerned, given this new finding, about her prior history due to which she was referred here. She had a CT CAP and labs done, which were negative. Pathology was requested from [facility], but has not been received. Her US of the breast was negative, and a 6 mth f/u was recommended She had a fall in 02/23 , with a concussion, and recovered over 2-3 mths. No records were available from [facility] , likely due to the time elapsed As the patient was asymptomatic, it was decided to place her on observation The patient presented in 10/25, complaining of new onset of abdominal pain, progressive over 7-10 days, mainly localized the right lower quadrant she had a CT scan of the abdomen and pelvis on 10/27/18 showing a mixed density mass in the right lower quadrant, with soft tissue density, felt to be related to phlegmon or abscess. There is some mild right-sided inguinal adenopathy that was unchanged. Borderline retroperitoneal lymph nodes are also unchanged. She underwent surgery on 10/28/18, with resection of the right ovary and right fallopian tube as well as pelvic lymph node biopsy. This showed evidence of high-grade B cell non-Hodgkin lymphoma in the pelvic lymph node. There is a benign ovarian fibroma and atrophic fallopian tube with associated lymphoid tissue with atypical lymphoproliferative process. Double hit/triple hit was subsequently ruled out as MYC rearrangement was negative The patient's PET scan showed multiple areas of uptake including left axilla, mediastinum, left breast, as well as well as multiple areas in the retroperitoneum, most prominently in the aortocaval region She was found to be hepatitis C positive. ECHO revealed an EF of 35 % She was seen by ID, and is to start antiviral rx in the near future. She had a cath by cardiology , which was negative and showed increase in EF to 45% She was thus started on CEOP alone, on 12/13/18 and is s/p 2 cycles. PEG- GCSF was added with C2 PET scan after C 2 showed improvement, but still persistent uptake in multiple areas, including retropectoral, retroperitoneal, and pelvic. She was therefore switched to ICE and is s/p 6 cycles. Rituxan was added with C4, after anti viral treatment. Hep C RNA chelsie was only 33 after C 3. She completed her antiviral therapy in late 03/28, with subsequent labs showing undetectable levels Telemedicine 06/22/19: the patient was discharged from the hospital after cycle #6 on 05/18/19. She did require dose reduction with cycle 6. She has noted slow improvement in her chemotherapy-related side effects. She denied any f/c/n/v/LAD/wt loss. no unusual bleeding or bruising. Her energy level and appetite were again significantly diminished for 13-15 days, but are improving slowly. Abdominal pain is well controlled. She again had so me LE swelling due to IVF in the hospital, but this is improved outpt, with use of compression stockings, over 7-8 days. Her ROS is otherwise as per HPI and negative out of 10. Telemedicine 08/03/19: The patient denied any hospital or ER visits since her last follow-up. They level continues to improve her fatigue is still an issue. She has not been able to increase her activity significantly because of ongoing quarantine. Appetite is improved. She denied any new abdominal or bone pain. No recurrence of lower extremity swelling. No history of any fevers/chills/nausea/vomiting/new LAD. Review of systems otherwise as per HPI and negative out of 10 12/06/19: Patient presents for results of Ultrasound of abnormal lesions to buttocks, she now unfortnetley has discovered more palpable nodules. Left side and hip. as well as inguinal and Right Axilla Palpable and moveable. She has since switched insurance carriers since a CT for restaging was attempted last month. I have spoke with Dr. Brush and will schedule patient with excisional Right axilla biopsy and medial gluteal biopsy. She will also need a restaging PET as the concern for recurrence is conconcerning given her increased palpable nodules. SHe also complains of some dysuria and not fully emptying bladder. CKD on baseline, although has been trending up. Will check urinalysis and TLS bloodwork today. Platelets are also decreased to 85K today from 100K last visit. Increasing B symptom complaints as well as one mass sitting at sciatic nerve which is making difficult to sleep or sit as patient states it "clenches and zaps" the patient had excisional biopsy of the left gluteal mass on 12/28/19. This showed diffuse large B-cell lymphoma. PET scan showed recurrence in the right axilla, retroperitoneum, right inguinal as well as right upper thigh soft tissue. patient. Labs from 01/10/20 showed marked increase in creatinine is 3.9. She was admitted to the hospital and treated with hydration with improvement. Double /triple hit testing was negative. The patient was seen at the [facility], [place], by Dr. Wills, and was recommended to start third line treatment with bendamustine/rituximab/Polutuzumab. she started the same on 02/14/20 and is status post 4 cycles. Labs after cycle 1 showed increase in creatinine again, no other labs are not definitive for tumor lysis. The patient received additional hydration in the office. 03/14/20-S/P 2 cycles of R+B + she had terrible constipation last week, needed miralax and laxatives, did drink lots of fluids, she finally went, feeling a little wobbly today but better. She still has appetite, eats too much at once. No F, oral irritation, she has N occasionally that antiemetic take care of. No V, swelling in her right leg went down, she has chronic back pain, not using fentanyl. No other c/o, questions or concerns. she denies any fever/chills/nausea/vomiting. she is complaining of a sore thr oat, sinus congestion, as well as some swelling of bilateral submandibular lymph nodes. she had noted increase in pain in the right lower quadrant as well as in the upper abdomen, at the site of lymphoma involvement. Pain medication was changed to fentanyl, by neurology. However the patient discontinued the patch as she developed significant nausea and vomiting, as well as dizziness, without significant improvement in pain control. She states that she went back to taking her oxycodone, with improvement and then resolution. She reports stable fatigue. She has not noted additional skin nodules. Nodules on the lower back seemed to have resolved. right lower extremity swelling is markedly reduced. Doppler inpatient was negative and this was determined to be due to mechanical obstruction from right pelvic/inguinal adenopathy .She denied any unusual bruising or bleeding. Appetite is maintained. Review of systems otherwise as per HPI and negative out of 10. the patient is complaining of so throat, with physical exam findings as above. CBC shows hemoglobin of 9.06, platelets of 47 and WBC 0.73. Her PET scan after 3 cycles showed essentially a complete treatment response. -Check labs -Prescription for Levaquin, as well as cool solution. It was again reiterated to the patient and her family that she should monitor her temperature closely and go to the emergency room if she develops a fever of 100.4 or more. - continue current regimen. Add Neulasta with next cycle. Review of Systems All systems: negative Constitutional: Reports as per HPI Past Medical History Past Medical History: Atrial Fibrillation, Cancer, Chest Pain / Angina, Eye Disorder, Hyperlipidemia, Hypertension, Liver Disease, Musculoskeletal Disorder, Pneumonia, Renal Disease Additional Past Medical History / Comment(s): 2006 NHL (lymphoma) - no tx needed, then returned 10/2018, has been receiving chemo at [facility] every 3 weeks since 2019- Last chemo 04/18/20, Hepatitis C-tx 2019 & told cured, DDD, Chronic LBP/cervical pain (Dr. Cummins for pain), migraines, decreased renal function w/ steroid/nsaid use. Hx glaucoma. Varicose veins. Gallstones. power port in Rt subclavian. History of Any Multi-Drug Resistant Organisms: None Reported Past Surgical History: Cholecystectomy, Heart Catheterization, Orthopedic Surgery Additional Past Surgical History / Comment(s): 2006 R groin lump biopsy, 10/28/18 Exploratory laparotomy w/ tubo-ovarian cancer/R salpingo-oophorectomy/removal pelvic lymph nodes, 12/03/18 Port a cath, 12/20/18 cardiac cath-normal/CHIQUIS, 2016 cardiac cath, vaginal polypectomy, R shoulder arthroscopy/rotator cuff repair x2, R knee arthroscopy, ORIF R ankle with plates/screws. Right chest infusaport placed. Past Anesthesia/Blood Transfusion Reactions: No Reported Reaction Past Psychological History: Depression Additional Psychological History / Comment(s): lives with spouse and 2 dogs. She used to work in medical coding/billing and factory work. Smoking Status: Former smoker Past Alcohol Use History: None Reported Additional Past Alcohol Use History / Comment(s): Smoking at age 14, up to 1 - 03/10 ppd, smoking occasional for 4 months Past Drug Use History: None Reported - Past Family History Mother Family Medical History: COPD, Coronary Artery Disease (CAD), Myocardial Infarction ([place]), Seizure Disorder Additional Family Medical History / Comment(s): Mother had a [place] at the age of 76yrs. She from fall/facial injury and aspirated blood. Father Family Medical History: Coronary Artery Disease (CAD), Seizure Disorder Additional Family Medical History / Comment(s): Father had a seizure while driving resulting in a MVA in which he . Medications and Allergies Home Medications Medication Instructions Recorded Confirmed Type Sertraline [Zoloft] 100 mg PO DAILY 06/05/14 05/04/20 History Metoprolol Tartrate [Lopressor] 25 mg PO BID 10/08/15 05/04/20 History clonazePAM [KlonoPIN] 0.5 mg PO BID PRN 10/25/18 05/04/20 History Ondansetron HCl [Zofran] 4 mg PO Q4H PRN 12/15/18 05/04/20 History Amitriptyline HCl [Elavil] 25 mg PO HS 01/24/19 05/04/20 History Sertraline HCl [Zoloft] 50 mg PO DAILY 01/24/19 05/04/20 History oxyCODONE-APAP 10-325MG [Percocet 1 tab PO QID PRN 03/14/19 05/04/20 History 10-325 mg] oxyCODONE ER [OxyCONTIN] 20 mg PO Q12HR PRN 05/16/19 05/04/20 History Cyclobenzaprine [Flexeril] 5 mg PO TID PRN 01/11/20 05/04/20 History Fluticasone Propionate [Flonase 1 spray EA NOSTRIL DAILY PRN 01/11/20 05/04/20 History Allergy Relief] Calcitriol [Rocaltrol] 0.25 mcg PO Q7D 05/04/20 05/04/20 History Calcium Carbonate [Calcium] 600 mg PO DAILY 05/04/20 05/04/20 History Ergocalciferol [Vitamin D2 (1250 1,250 mcg PO Q7D 05/04/20 05/04/20 History Mcg = 67803 Iu)] Surinder Solution 5 ml PO QID 05/04/20 05/04/20 History Levofloxacin [Levaquin] 500 mg PO DAILY 05/04/20 05/04/20 History Phospha 250 1 tab PO TID 05/04/20 05/04/20 History Sennosides/Docusate Sodium [Senna 1 - 2 cap PO BID 05/04/20 05/04/20 History Plus 8.6-50 mg Softgel] Sodium Bicarbonate Tab 1,300 mg PO TID 05/04/20 05/04/20 History lisinopriL [Zestril] 2.5 mg PO DAILY 05/04/20 05/04/20 History Allergies Allergy/AdvReac Type Severity Reaction Status Date / Time NSAIDS (Non-Steroidal AdvReac Swelling, Verified 05/04/20 11:59 Anti-Inflamma "shuts kidneys down" Physical Exam Vitals: Vital Signs Temp Pulse Pulse Pulse Resp BP BP 05/05/20 12:12 99.2 F 85 16 109/57 05/05/20 08:30 105 H 87 16 05/05/20 05:00 98.5 F 87 16 105/63 05/04/20 20:38 105 H 16 110/56 05/04/20 17:11 99.4 F 109 H 17 117/64 05/04/20 16:28 99.0 F 110 H 20 113/58 05/04/20 15:46 99.4 F 109 H 20 128/57 Pulse Ox 05/05/20 12:12 100 05/05/20 08:30 05/05/20 05:00 99 05/04/20 20:38 98 05/04/20 17:11 97 05/04/20 16:28 100 05/04/20 15:46 99 Intake and Output 05/05/20 05/05/20 05/05/20 06:59 14:59 22:59 Intake Total 750 Balance 750 Intake: Intake, IV Titration 750 Amount Sodium Chloride 0.9% 1, 750 000 ml @ 75 mls/hr IV . [id number] ONE Rx#:[id number] Other: Voiding Method Toilet # Voids 4 Weight 47.627 kg - Constitutional General appearance: Present: cooperative, thin - EENT Eyes: Present: EOMI ENT: Present: NA/AT - Respiratory Respiratory: bilateral: diminished - Cardiovascular Rhythm: regular - Gastrointestinal General gastrointestinal: Present: normal bowel sounds - Integumentary Integumentary: Present: pale - Neurologic Neurologic: Present: CNII-XII intact - Musculoskeletal Musculoskeletal: Present: generalized weakness - Psychiatric Psychiatric: Present: A&O x's 3, appropriate affect, intact judgment & insight Results CBC & Chem 7: 05/08/20 05:36 05/08/20 05:36 Labs: Abnormal Lab Results - Last 24 Hours (Table) 05/05/20 05/05/20 05/05/20 Range/Units 05:31 05:31 11:16 WBC 0.40 L* (4.50-10.00) X 10*3/uL RBC 2.09 L (4.10-5.20) X 10*6/uL Hgb 7.5 L (12.0-15.0) g/dL Hct 21.8 L (37.2-46.3) % MCV 104.3 H (80.0-97.0) fL MCH 35.9 H (27.0-32.0) pg RDW 16.0 H (11.5-14.5) % Plt Count 44 L (140-440) X 10*3/uL Plt Count Comment A Neutrophils # (Manual) 0.13 L* (2.00-8.90) X 10*3/uL Lymphocytes # (Manual) 0.03 L (0.90-5.00) X 10*3/uL Monocytes # (Manual) 0.18 L (0.20-1.00) X 10*3/uL Sodium 136 L (137-145) mmol/L Potassium 3.0 L (3.5-5.5) mmol/L Chloride 111 H 111 H (96-109) mmol/L Carbon Dioxide 17.8 L 14 L (21.6-31.8) mmol/L BUN 20 H (7-17) mg/dL Creatinine 1.8 H 1.84 H (0.6-1.5) mg/dL Est GFR (CKD-EPI)AfAm 33.6 L (60.0-200.0) Est GFR (CKD-EPI)NonAf 29.0 L (60.0-200.0) Glucose 105 H (74-99) mg/dL Uric Acid 2.1 L (3.7-7.4) mg/dL Calcium 7.4 L 6.9 L (8.7-10.3) mg/dL Ionized Calcium Amadeo (4.5-5.3) mg/dL 05/05/20 Range/Units 13:09 WBC (4.50-10.00) X 10*3/uL RBC (4.10-5.20) X 10*6/uL Hgb (12.0-15.0) g/dL Hct (37.2-46.3) % MCV (80.0-97.0) fL MCH (27.0-32.0) pg RDW (11.5-14.5) % Plt Count (140-440) X 10*3/uL Plt Count Comment Neutrophils # (Manual) (2.00-8.90) X 10*3/uL Lymphocytes # (Manual) (0.90-5.00) X 10*3/uL Monocytes # (Manual) (0.20-1.00) X 10*3/uL Sodium (137-145) mmol/L Potassium (3.5-5.5) mmol/L Chloride (96-109) mmol/L Carbon Dioxide (21.6-31.8) mmol/L BUN (7-17) mg/dL Creatinine (0.6-1.5) mg/dL Est GFR (CKD-EPI)AfAm (60.0-200.0) Est GFR (CKD-EPI)NonAf (60.0-200.0) Glucose (74-99) mg/dL Uric Acid (3.7-7.4) mg/dL Calcium (8.7-10.3) mg/dL Ionized Calcium Amadeo 4.3 L (4.5-5.3) mg/dL Assessment and Plan Plan: Assessment and Plan (1) Dysphagia Current Visit: Yes Status: Acute Code(s): R13.10 - DYSPHAGIA, UNSPECIFIED SNOMED Code(s): 43124567 (2) ARF (acute renal failure) Current Visit: No Status: Acute Code(s): N17.9 - ACUTE KIDNEY FAILURE, UNSPECIFIED SNOMED Code(s): 34746906 (3) NHL (non-Hodgkin's lymphoma) Current Visit: No Status: Chronic Priority: High Code(s): C85.90 - NON- HODGKIN LYMPHOMA, UNSPECIFIED, UNSPECIFIED SITE SNOMED Code(s): 784198816 Plan: Unable to do contrasted CT with renal function, non contrasted ok Await gen surg recs Discussed with surgery team Family at bedside.
[2020-05-05] MEDS: FILGRASTIM-SNDZ 300 MCG/0.5 ML SYRINGE SQ SCH (16:44)
[2020-05-05] MEDS: MAG HYDROX/AL HYDROX/SIMETH 30 ML, LIDOCAINE VISCOUS 30 ML, diphenhydrAMINE ELIXIR 75 M... PO SCH ×12 (17:16→20:25)
[2020-05-05 17:51] LABS: % Iron Saturation 8.76 (12.00-45.00); Iron 19 ug/dL (50-170); Total Iron Binding Capacity 217 ug/dL (228-460)
[2020-05-05 18:11] LABS: Ferritin 739.8 ng/mL (10.0-291.0)
--- NOTE | 2020-05-05 18:32 | P.GSCN ---
History of Present Illness Consult date: 05/05/20 History of present illness: Reports lymphoma. Trouble swallowing for 1 week. Reports tonsillitis. Troubles swallowing liquids improved today. Neck no adenopathy. Recommend ENT consult as well. May need EGD with dilation pending ENT evaluation. Past Medical History Past Medical History: Atrial Fibrillation, Cancer, Chest Pain / Angina, Eye Disorder, Hyperlipidemia, Hypertension, Liver Disease, Musculoskeletal Disorder, Pneumonia, Renal Disease Additional Past Medical History / Comment(s): 2006 NHL (lymphoma) - no tx needed, then returned 10/2018, has been receiving chemo at [facility] every 3 weeks since 2019- Last chemo 04/18/20, Hepatitis C-tx 2019 & told cured, DDD, Chronic LBP/cervical pain (Dr. Cummins for pain), migraines, decreased renal function w/ steroid/nsaid use. Hx glaucoma. Varicose veins. Gallstones. power port in Rt subclavian. History of Any Multi-Drug Resistant Organisms: None Reported Past Surgical History: Cholecystectomy, Heart Catheterization, Orthopedic Surgery Additional Past Surgical History / Comment(s): 2006 R groin lump biopsy, 10/28/18 Exploratory laparotomy w/ tubo-ovarian cancer/R salpingo-oophorectomy/removal pelvic lymph nodes, 12/03/18 Port a cath, 12/20/18 cardiac cath-normal/CHIQUIS, 2015 cardiac cath, vaginal polypectomy, R shoulder arthroscopy/rotator cuff repair x2, R knee arthroscopy, ORIF R ankle with plates/screws. Right chest infusaport placed. Past Anesthesia/Blood Transfusion Reactions: No Reported Reaction Past Psychological History: Depression Additional Psychological History / Comment(s): lives with spouse and 2 dogs. She used to work in medical coding/billing and factory work. Smoking Status: Former smoker Past Alcohol Use History: None Reported Additional Past Alcohol Use History / Comment(s): Smoking at age 14, up to 1 - 1 1/2 ppd, smoking occasional for 4 months Past Drug Use History: None Reported - Past Family History Mother Family Medical History: COPD, Coronary Artery Disease (CAD), Myocardial Infarction ([place]), Seizure Disorder Additional Family Medical History / Comment(s): Mother had a [place] at the age of 76yrs. She from fall/facial injury and aspirated blood. Father Family Medical History: Coronary Artery Disease (CAD), Seizure Disorder Additional Family Medical History / Comment(s): Father had a seizure while driving resulting in a MVA in which he . Medications and Allergies Home Medications Medication Instructions Recorded Confirmed Type Sertraline [Zoloft] 100 mg PO DAILY 06/05/14 05/04/20 History Metoprolol Tartrate [Lopressor] 25 mg PO BID 10/08/15 05/04/20 History clonazePAM [KlonoPIN] 0.5 mg PO BID PRN 10/25/18 05/04/20 History Ondansetron HCl [Zofran] 4 mg PO Q4H PRN 12/15/18 05/04/20 History Amitriptyline HCl [Elavil] 25 mg PO HS 01/24/19 05/04/20 History Sertraline HCl [Zoloft] 50 mg PO DAILY 01/24/19 05/04/20 History oxyCODONE-APAP 10-325MG [Percocet 1 tab PO QID PRN 03/14/19 05/04/20 History 10-325 mg] oxyCODONE ER [OxyCONTIN] 20 mg PO Q12HR PRN 05/16/19 05/04/20 History Cyclobenzaprine [Flexeril] 5 mg PO TID PRN 01/11/20 05/04/20 History Fluticasone Propionate [Flonase 1 spray EA NOSTRIL DAILY PRN 01/11/20 05/04/20 History Allergy Relief] Calcitriol [Rocaltrol] 0.25 mcg PO Q7D 05/04/20 05/04/20 History Calcium Carbonate [Calcium] 600 mg PO DAILY 05/04/20 05/04/20 History Ergocalciferol [Vitamin D2 (1250 1,250 mcg PO Q7D 05/04/20 05/04/20 History Mcg = 59155 Iu)] Surinder Solution 5 ml PO QID 05/04/20 05/04/20 History Levofloxacin [Levaquin] 500 mg PO DAILY 05/04/20 05/04/20 History Phospha 250 1 tab PO TID 05/04/20 05/04/20 History Sennosides/Docusate Sodium [Senna 1 - 2 cap PO BID 05/04/20 05/04/20 History Plus 8.6-50 mg Softgel] Sodium Bicarbonate Tab 1,300 mg PO TID 05/04/20 05/04/20 History lisinopriL [Zestril] 2.5 mg PO DAILY 05/04/20 05/04/20 History Allergies Allergy/AdvReac Type Severity Reaction Status Date / Time NSAIDS (Non-Steroidal AdvReac Swelling, Verified 05/04/20 11:59 Anti-Inflamma "shuts kidneys down" Surgical - Exam Vital Signs Temp Pulse Resp BP Pulse Ox 99.9 F H 124 H 22 90/56 100 05/04/20 11:57 05/04/20 11:57 05/04/20 11:57 05/04/20 11:57 05/04/20 11:57 Results - Labs 05/05/20 05:31 05/05/20 11:16 Abnormal Lab Results - Last 24 Hours (Table) 05/05/20 05/05/20 05/05/20 Range/Units 05:31 05:31 11:16 WBC 0.40 L* (4.50-10.00) X 10*3/uL RBC 2.09 L (4.10-5.20) X 10*6/uL Hgb 7.5 L (12.0-15.0) g/dL Hct 21.8 L (37.2-46.3) % MCV 104.3 H (80.0-97.0) fL MCH 35.9 H (27.0-32.0) pg RDW 16.0 H (11.5-14.5) % Plt Count 44 L (140-440) X 10*3/uL Plt Count Comment A Neutrophils # (Manual) 0.13 L* (2.00-8.90) X 10*3/uL Lymphocytes # (Manual) 0.03 L (0.90-5.00) X 10*3/uL Monocytes # (Manual) 0.18 L (0.20-1.00) X 10*3/uL Sodium 136 L (137-145) mmol/L Potassium 3.0 L (3.5-5.5) mmol/L Chloride 111 H 111 H (96-109) mmol/L Carbon Dioxide 17.8 L 14 L (21.6-31.8) mmol/L BUN 20 H (7-17) mg/dL Creatinine 1.8 H 1.84 H (0.6-1.5) mg/dL Est GFR (CKD-EPI)AfAm 33.6 L (60.0-200.0) Est GFR (CKD-EPI)NonAf 29.0 L (60.0-200.0) Glucose 105 H (74-99) mg/dL Uric Acid 2.1 L (3.7-7.4) mg/dL Calcium 7.4 L 6.9 L (8.7-10.3) mg/dL Ionized Calcium Amadeo (4.5-5.3) mg/dL Iron 19 L (50-170) ug/dL TIBC 217 L (228-460) ug/dL % Saturation 8.76 L (12.00-45.00) Ferritin 739.8 H (10.0-291.0) ng/mL 05/05/20 Range/Units 13:09 WBC (4.50-10.00) X 10*3/uL RBC (4.10-5.20) X 10*6/uL Hgb (12.0-15.0) g/dL Hct (37.2-46.3) % MCV (80.0-97.0) fL MCH (27.0-32.0) pg RDW (11.5-14.5) % Plt Count (140-440) X 10*3/uL Plt Count Comment Neutrophils # (Manual) (2.00-8.90) X 10*3/uL Lymphocytes # (Manual) (0.90-5.00) X 10*3/uL Monocytes # (Manual) (0.20-1.00) X 10*3/uL Sodium (137-145) mmol/L Potassium (3.5-5.5) mmol/L Chloride (96-109) mmol/L Carbon Dioxide (21.6-31.8) mmol/L BUN (7-17) mg/dL Creatinine (0.6-1.5) mg/dL Est GFR (CKD-EPI)AfAm (60.0-200.0) Est GFR (CKD-EPI)NonAf (60.0-200.0) Glucose (74-99) mg/dL Uric Acid (3.7-7.4) mg/dL Calcium (8.7-10.3) mg/dL Ionized Calcium Amadeo 4.3 L (4.5-5.3) mg/dL Iron (50-170) ug/dL TIBC (228-460) ug/dL % Saturation (12.00-45.00) Ferritin (10.0-291.0) ng/mL Diabetes panel 05/05/20 05/05/20 Range/Units 05:31 11:16 Sodium 138 136 L (135-145) mmol/L Potassium 3.0 L 3.8 (3.5-5.5) mmol/L Chloride 111 H 111 H (96-109) mmol/L Carbon Dioxide 17.8 L 14 L (21.6-31.8) mmol/L BUN 22.0 20 H (9.0-27.0) mg/dL Creatinine 1.8 H 1.84 H (0.6-1.5) mg/dL Glucose 95 105 H (70-110) mg/dL Calcium 7.4 L 6.9 L (8.7-10.3) mg/dL Calcium panel 05/05/20 05/05/20 05/05/20 Range/Units 05:31 11:16 13:09 Calcium 7.4 L 6.9 L (8.7-10.3) mg/dL Ionized Calcium Amadeo 4.3 L (4.5-5.3) mg/dL Pituitary panel 05/05/20 05/05/20 Range/Units 05:31 11:16 Sodium 138 136 L (135-145) mmol/L Potassium 3.0 L 3.8 (3.5-5.5) mmol/L Chloride 111 H 111 H (96-109) mmol/L Carbon Dioxide 17.8 L 14 L (21.6-31.8) mmol/L BUN 22.0 20 H (9.0-27.0) mg/dL Creatinine 1.8 H 1.84 H (0.6-1.5) mg/dL Glucose 95 105 H (70-110) mg/dL Calcium 7.4 L 6.9 L (8.7-10.3) mg/dL Adrenal panel 05/05/20 05/05/20 Range/Units 05:31 11:16 Sodium 138 136 L (135-145) mmol/L Potassium 3.0 L 3.8 (3.5-5.5) mmol/L Chloride 111 H 111 H (96-109) mmol/L Carbon Dioxide 17.8 L 14 L (21.6-31.8) mmol/L BUN 22.0 20 H (9.0-27.0) mg/dL Creatinine 1.8 H 1.84 H (0.6-1.5) mg/dL Glucose 95 105 H (70-110) mg/dL Calcium 7.4 L 6.9 L (8.7-10.3) mg/dL
[2020-05-06] MEDS: DEXTROSE 5%-0.9% NACL 1,000 ML IV SCH ×2 (01:55→17:42)
[2020-05-06] MEDS: DEXTROSE 5%-0.45% NACL 1,000 ML IV SCH ×2 (04:13→14:44)
[2020-05-06] MEDS: HEPARIN SODIUM,PORCINE 5,000 UNIT/ML 1 ML VIAL SQ SCH ×2 (08:17→21:58)
[2020-05-06] MEDS: ACYCLOVIR 200 MG CAP PO SCH ×3 (08:17→23:33)
[2020-05-06] MEDS: PANTOPRAZOLE 40 MG/10 ML VIAL IVP SCH ×2 (08:17→21:58)
[2020-05-06] MEDS: MAG HYDROX/AL HYDROX/SIMETH 30 ML, LIDOCAINE VISCOUS 30 ML, diphenhydrAMINE ELIXIR 75 M... PO SCH ×12 (08:21→23:33)
[2020-05-06] MEDS: HYDROmorphone 1 MG/ML 1 ML SYRINGE IVP PRN ×3 (08:41→19:49)
[2020-05-06 09:46] LABS: Anion Gap 7.7 mmol/L (4.00-12.00); BUN/Creat Ratio 10.59 Ratio (12.00-20.00); Calcium 7.1 mg/dL (8.7-10.3); Carbon Dioxide 16.3 mmol/L (21.6-31.8); Non-African American GFR(CKD) 31.1 (60.0-200.0); Potassium 3.3 mmol/L (3.5-5.5)
[2020-05-06 10:55] LABS: Basophils # (M) 0.02 X 10*3/uL (0.00-0.10); Eosinophils # (M) 0.08 X 10*3/uL (0.04-0.35); HCT 22.9 % (37.2-46.3); HGB 7.7 g/dL (12.0-15.0); Lymphocytes # (M) 0.08 X 10*3/uL (0.90-5.00); MCHC 33.6 g/dL (32.0-37.0); MCV 104.1 fL (80.0-97.0); Mean Platelet Volume 9.7 fL (9.5-12.2); Metamyelocytes % 4 % (0-0); Myelocytes % 1 % (0-0); Neutrophils % (M) 47 %; Platelet Count 42 X 10*3/uL (140-440); RDW 16.1 % (11.5-14.5); WBC 0.79 X 10*3/uL (4.50-10.00)
--- NOTE | 2020-05-06 13:10 | P.PN ---
Subjective This is a pleasant 64-year-old patient of Dr. Weller. She has a past medical history high-grade B-cell non-Hodgkin's lymphoma, Status post chemotherapy and she follows up with Dr. Gutiérrez. benign ovarian fibroma.PET scan showed areas of multiple uptake including left axilla, mediastinum, left breast, multiple areas in the retro-peritoneal.hepatitis C . Mild cardiomyopathy with EF of 45% with negative cardiac cath. Status post chemotherapy, Atrial fibrillation, hyperlipidemia, hypertension chronic low back pain and cervical pain where she follows up with Dr. Cummins, migraine, chronic kidney disease stage IV. She is a patient of Dr. Young and follow-up with Dr. Chau and Dr. West. Her pain management is Dr. Cummins Patient presents because of swallowing difficulty and decrease swallowing. Patient cannot eat she feels that food gets stuck in her throat and also she could not drink which is associated with vomiting. Sometimes she'll wake up in the middle of night choking. Associated with pain in the abdomen In the epigastric and radiating in the [place] up to the throat, followed by the patient has tenderness/stent and burning even without eating patient feels something stuck in her throat She denies chest pain or dyspnea or cough and only if she drinks. She is smoker about half pack per day quit about 2 weeks ago, no alcohol or illicit drugs. She follows up with Dr. Gutiérrez, she recently got chemotherapy and she has a follow-up appointment next month in May. Patient is tachycardic around 110, still vitals are stable wbc 0.4 K , Hb 8.2, platelets 41K, INR is 1.1. Sodium is 134, potassium 3.0, creatinine 1.9 which is close to her baseline of 2-2.2. Liver enzymes not elevated. Troponin is less than 0.012. Urine showing 2+ protein 3+ glucose, no evidence of infection. Coronavirus nondetected. EKG shows sinus tachycardia at 111, with QTC 524 and left bundle-branch block Chest x-ray: No acute process 05/05/2020 Patient presents with dysphagia and something stuck feeling in her throat. No oral thrush on inspection. She has epigastric pain and tenderness. No bowel movement or gas CT of the abdomen showing normal obstruction. Surgical team were consulted Keep patient nothing by mouth. Increase pain medication slightly as per patient Consult oncology team for her pancytopenia related to her non-Hodgkin lymphoma and chemotherapy 05/06/2020 Patient still complaining of from dysphagia, her abdominal pain is better controlled however has not completely resolved. Patient herself feels hungry. Slip stable vitals are stable. Labs show persistent pancytopenia and neutropenia. She has low-grade temperature of 99.9 on admission. Patient was already started on Levaquin and acyclovir by hematology/oncology team Her potassium 3.3, creatinine slightly down to 1.7 from 1.8 yesterday. She has advanced chronic kidney disease Surgery input is appreciated they recommend ENT consult and possible EGD with dilatation pending ENT evaluation. ENT team were consulted today. She has not been able to eat for a few days prior to admission, We will consider PICC line and TPN tomorrow. Consult dietitian Review of Systems CONSTITUTIONAL: No fever, no malaise, no fatigue. HEENT: No recent visual problems or hearing problems. Denied any sore throat. CARDIOVASCULAR: No orthopnea, PND, no palpitations, no syncope. PULMONARY: No shortness of breath, no cough, no hemoptysis. GASTROINTESTINAL: No diarrhea, Normoactive bowel sounds. NEUROLOGICAL: No headaches, no weakness, no numbness. Active Medications Generic Name Dose Route Start Last Admin Trade Name Hughq PRN Reason Stop Dose Admin Acyclovir 400 mg 05/05/20 11:45 05/06/20 08:17 Acyclovir 200 Mg Cap PO 400 mg TID MC Administration Al Hydroxide/Mg Hydroxide 30 0 ml 05/05/20 12:15 05/06/20 08:21 ml/ Lidocaine HCl 30 ml/ PO 5 ml Diphenhydramine HCl 75 mg/ TID MC Administration Nystatin 3,000,000 unit Filgrastim-Sndz 300 mcg 05/05/20 18:00 05/05/20 16:44 Filgrastim-Sndz 300 Mcg/0.5 Ml Syringe SQ 300 mcg DAILY@1800 MC Administration Heparin Sodium (Porcine) 5,000 unit 05/04/20 23:15 05/06/20 08:17 Heparin Sodium,Porcine 5,000 Unit/Ml 1 Ml Vial SQ 5,000 unit Q12HR MC Administration Hydromorphone HCl 0.5 mg 05/04/20 23:05 05/05/20 00:09 Hydromorphone 0.5 Mg/0.5 Ml Syringe IVP 0.5 mg Q3HR PRN Administration Pain Hydromorphone HCl 1 mg 05/05/20 10:18 05/06/20 08:41 Hydromorphone 1 Mg/Ml 1 Ml Syringe IVP 1 mg Q4HR PRN Administration Pain Scale 9 To 10 Dextrose/Sodium Chloride 1,000 mls @ 75 mls/hr 05/05/20 10:30 05/06/20 04:13 Dextrose 5%-1/2ns Iv Soln IV Not Given .[id number] MC Dextrose/Sodium Chloride 1,000 mls @ 75 mls/hr 05/05/20 12:00 05/06/20 01:55 Dextrose 5%-Ns Iv Soln IV 75 mls/hr .[id number] MC Administration Levofloxacin/Dextrose 250 mg/ 50 mls @ 50 mls/hr 05/06/20 12:00 IV Solution IVPB Q24H MC Lorazepam 0.5 mg 05/04/20 23:10 Lorazepam 2 Mg/Ml Inj IV Q12HR PRN Anxiety Miscellaneous Information 1 each 05/05/20 00:19 Potassium Replacement Protocol 1 Each Misc MISCELLANE DAILY PRN Per Protocol Protocol Miscellaneous Information 1 each 05/05/20 04:36 Potassium Replacement Protocol 1 Each Misc MISCELLANE DAILY PRN Per Protocol Protocol Pantoprazole Sodium 40 mg 05/04/20 23:15 05/06/20 08:17 Pantoprazole 40 Mg/10 Ml Vial IVP 40 mg BID MC Administration Objective - Vital Signs Vital signs: Vital Signs Temp 99.0 F 05/06/20 04:46 Pulse 75 05/06/20 04:46 Resp 16 05/06/20 04:46 BP 136/70 05/06/20 04:46 Pulse Ox 99 05/06/20 04:46 Intake & Output 05/05/20 05/06/20 05/06/20 18:59 06:59 18:59 Intake Total 0 900 Balance 0 900 Weight 47.627 kg Intake: Intake, IV Titration 900 Amount Dextrose 5%-0.9% NaCl 1, 900 000 ml @ 75 mls/hr IV . [id number] COUNT INCLUDES THE [facility] Rx#:[id number] Oral 0 Other: Voiding Method Toilet Toilet # Voids 3 1 - Exam -GENERAL: The patient is alert and oriented x3, not in any acute distress. Thin built HEENT: Pupils are round and equally reacting to light. EOMI. No scleral icterus. No conjunctival pallor. Normocephalic, atraumatic. No pharyngeal erythema. No thyromegaly. CARDIOVASCULAR: S1 and S2 present. No murmurs, rubs, or gallops. PULMONARY: Chest is clear to auscultation, no wheezing or crackles. -ABDOMEN: Soft, epigastric tenderness, nondistended, normoactive bowel sounds. No palpable organomegaly. MUSCULOSKELETAL: No joint swelling or deformity. EXTREMITIES: No cyanosis, clubbing, or pedal edema. NEUROLOGICAL: Gross neurological examination did not reveal any focal deficits. SKIN: No rashes. no petechiae. - Labs CBC & Chem 7: 05/06/20 06:20 05/06/20 06:20 Labs: Abnormal Lab Results - Last 24 Hours (Table) 05/05/20 05/05/20 05/06/20 Range/Units 11:16 13:09 06:20 WBC 0.79 L* (4.50-10.00) X 10*3/uL RBC 2.20 L (4.10-5.20) X 10*6/uL Hgb 7.7 L (12.0-15.0) g/dL Hct 22.9 L (37.2-46.3) % MCV 104.1 H (80.0-97.0) fL MCH 35.0 H (27.0-32.0) pg RDW 16.1 H (11.5-14.5) % Plt Count 42 L (140-440) X 10*3/uL Plt Count Comment A Metamyelocytes % 4 H (0-0) % Myelocytes % 1 H (0-0) % Neutrophils # (Manual) 0.37 L* (2.00-8.90) X 10*3/uL Lymphocytes # (Manual) 0.08 L (0.90-5.00) X 10*3/uL Potassium (3.5-5.5) mmol/L Chloride (96-109) mmol/L Carbon Dioxide (21.6-31.8) mmol/L Creatinine (0.6-1.5) mg/dL Est GFR (CKD-EPI)AfAm (60.0-200.0) Est GFR (CKD-EPI)NonAf (60.0-200.0) BUN/Creatinine Ratio (12.00-20.00) Ratio Glucose (70-110) mg/dL Calcium (8.7-10.3) mg/dL Ionized Calcium Amadeo 4.3 L (4.5-5.3) mg/dL Iron 19 L (50-170) ug/dL TIBC 217 L (228-460) ug/dL % Saturation 8.76 L (12.00-45.00) Ferritin 739.8 H (10.0-291.0) ng/mL 05/06/20 Range/Units 06:20 WBC (4.50-10.00) X 10*3/uL RBC (4.10-5.20) X 10*6/uL Hgb (12.0-15.0) g/dL Hct (37.2-46.3) % MCV (80.0-97.0) fL MCH (27.0-32.0) pg RDW (11.5-14.5) % Plt Count (140-440) X 10*3/uL Plt Count Comment Metamyelocytes % (0-0) % Myelocytes % (0-0) % Neutrophils # (Manual) (2.00-8.90) X 10*3/uL Lymphocytes # (Manual) (0.90-5.00) X 10*3/uL Potassium 3.3 L (3.5-5.5) mmol/L Chloride 112 H (96-109) mmol/L Carbon Dioxide 16.3 L (21.6-31.8) mmol/L Creatinine 1.7 H (0.6-1.5) mg/dL Est GFR (CKD-EPI)AfAm 36.0 L (60.0-200.0) Est GFR (CKD-EPI)NonAf 31.1 L (60.0-200.0) BUN/Creatinine Ratio 10.59 L (12.00-20.00) Ratio Glucose 127 H (70-110) mg/dL Calcium 7.1 L (8.7-10.3) mg/dL Ionized Calcium Amadeo (4.5-5.3) mg/dL Iron (50-170) ug/dL TIBC (228-460) ug/dL % Saturation (12.00-45.00) Ferritin (10.0-291.0) ng/mL Assessment and Plan Assessment: Dysphagia associated with epigastric pain radiating to the throat/odynophagia Stage IV B-cell non-Hodgkin lymphoma involving multiple areas including the left axilla, mediastinum, left breast and multiple retroperitoneal areas Pancytopenia mostly is related to her chemotherapy Chronic kidney disease, stage IV Moderate calories protein mild nutrition History of hepatitis C Mild cardiomyopathy with ejection fraction 45% Benign ovarian fibroma Paroxysmal atrial fibrillation, not on anticoagulation due to thrombocytopenia Hypertension Hyperlipidemia Chronic low back pain and cervical pain History of migraine Cachexia Plan: This is a pleasant 64 years old female with advanced non-Hodgkin lymphoma presents with dysphagia and abdominal pain. Keep the patient nothing by mouth, continue with Protonix. Gentle hydration. Surgical consult. Hematology/oncology consult. ENT consult Pain management. Considers of PICC line and TPN. Continue with antibiotic per oncology team, currently she is on Levaquin and acyclovir Labs and medication were reviewed.. Continue same treatment. Continue with symptomatic treatment. Resume home medication. Monitor lytes and vitals. DVT and GI prophylaxis. Further recommendations depends on the clinical course of the patient DVT prophylaxis: no Subcutaneous heparin due to her thrombocytopenia GI Prophylaxis: Ppi PT/OT: Pending Prognosis is guarded
[2020-05-06] MEDS: LEVOFLOXACIN 250MG-D5W PMX 250 MG in DEXTROSE/WATER 1 50ML.BAG IVPB SCH (14:34)
--- NOTE | 2020-05-06 14:54 | CT ---
EXAMINATION TYPE: CT neck chest without con DATE OF EXAM: 05/06/2020 COMPARISON: PET CT scan 04/28/2020 HISTORY: Dysphagia CT DLP: 521.2 mGycm Automated exposure control for dose reduction was used. Images were obtained from the frontal sinuses to the diaphragm without contrast. The globes are symmetric. There is no retro-orbital mass. Paranasal sinuses appear fairly normal. Par otid glands are symmetric. There is fatty replacement. Submandibular salivary glands are symmetric. T here is 8 mm anterior triangle right side cervical lymph node. Epiglottis is normal. Tongue appears n ormal. Tonsils and adenoids appear normal. There is no evidence of pharyngeal mass. There is multilev el cervical spondylotic changes with spur formation anteriorly. The thyroid gland is symmetric. There is some retained material in the mid and upper thoracic esophagus. There is also some circumfer ential thickening of the esophagus at the level of the aortic arch. Visualized liver and spleen are intact. Spleen measures 12 cm. Visualized stomach is intact. Gastroes ophageal junction appears normal. Thoracic aorta is atheromatous. There is calcified left side bronch ial lymph nodes. There is T12 anterior wedging 20%. There is some patchy reticular and nodular infiltrate in the left lower lobe. There is no pleural eff usion. There is mild subsegmental atelectasis left lung base. There is 1.5 x 1 cm pretracheal lymph n ode. Unchanged. IMPRESSION: There is some thickening of the mid and upper thoracic esophagus that could be retained food material as well as a mucosal lesion. Follow-up recommended. There is T12 compression fractures stable compared to CT scan 01/11/2020. There is some patchy reticular nodular pulmonary infiltrate in the left lower lobe. This appears new compared to 04/28/2020 exam and consistent with acute pneumonia. Esophagram would be helpful for further evaluation if clinically indicated.
--- NOTE | 2020-05-06 14:59 | P.PN ---
Subjective Progress Note Date: 05/06/20 Patient and oncology team requesting upper scope for mid-chest dysphagia and chest pain. She can tolerate liquids. ENT consult with management as outpatient. May have milk shakes and outside foods that she can tolerate. Will proceed with upper endoscopy per patient and oncology request. Objective - Vital Signs Vital signs: Vital Signs Temp 98.8 F 05/06/20 13:09 Pulse 85 05/06/20 13:09 Resp 16 05/06/20 13:09 BP 122/63 05/06/20 13:09 Pulse Ox 99 05/06/20 13:09 Intake & Output 05/05/20 05/06/20 05/06/20 18:59 06:59 18:59 Intake Total 0 900 Balance 0 900 Weight 47.627 kg Intake: Intake, IV Titration 900 Amount Dextrose 5%-0.9% NaCl 1, 900 000 ml @ 75 mls/hr IV . [id number] MC Rx#:[id number] Oral 0 Other: Voiding Method Toilet Toilet Toilet # Voids 3 1 - Labs CBC & Chem 7: 05/06/20 06:20 05/06/20 06:20 Labs: Abnormal Lab Results - Last 24 Hours (Table) 05/05/20 05/06/20 05/06/20 Range/Units 11:16 06:20 06:20 WBC 0.79 L* (4.50-10.00) X 10*3/uL RBC 2.20 L (4.10-5.20) X 10*6/uL Hgb 7.7 L (12.0-15.0) g/dL Hct 22.9 L (37.2-46.3) % MCV 104.1 H (80.0-97.0) fL MCH 35.0 H (27.0-32.0) pg RDW 16.1 H (11.5-14.5) % Plt Count 42 L (140-440) X 10*3/uL Plt Count Comment A Metamyelocytes % 4 H (0-0) % Myelocytes % 1 H (0-0) % Neutrophils # (Manual) 0.37 L* (2.00-8.90) X 10*3/uL Lymphocytes # (Manual) 0.08 L (0.90-5.00) X 10*3/uL Potassium 3.3 L (3.5-5.5) mmol/L Chloride 112 H (96-109) mmol/L Carbon Dioxide 16.3 L (21.6-31.8) mmol/L Creatinine 1.7 H (0.6-1.5) mg/dL Est GFR (CKD-EPI)AfAm 36.0 L (60.0-200.0) Est GFR (CKD-EPI)NonAf 31.1 L (60.0-200.0) BUN/Creatinine Ratio 10.59 L (12.00-20.00) Ratio Glucose 127 H (70-110) mg/dL Calcium 7.1 L (8.7-10.3) mg/dL Iron 19 L (50-170) ug/dL TIBC 217 L (228-460) ug/dL % Saturation 8.76 L (12.00-45.00) Ferritin 739.8 H (10.0-291.0) ng/mL
--- NOTE | 2020-05-06 16:46 | NM ---
EXAMINATION TYPE: NM pul vent and perfuse DATE OF EXAM: 05/06/2020 COMPARISON: NONE HISTORY: TECHNIQUE: Utilizing inhalation of 68.7 mCi Tc 99m DTPA aerosol and intravenous injection of 5.2 mCi of Tc 99m MAA, ventilation and perfusion images are acquired post injection in multiple projections. FINDINGS: There are matching subsegmental defects involving the lingula of the left upper lobe consistent with some degree of airway disease. There are peripheral small matching subsegmental defects in both upper lobes. There is no ventilation/perfusion mismatch.. IMPRESSION: There is evidence for airway disease. There is low probability of pulmonary embolism.
[2020-05-06] MEDS: FILGRASTIM-SNDZ 300 MCG/0.5 ML SYRINGE SQ SCH (17:41)
[2020-05-06] MEDS: polyethylene glycoL 3350 17 GM POWD.PACK PO SCH (23:33)
[2020-05-06] MEDS: HYDROmorphone 0.5 MG/0.5 ML SYRINGE IVP PRN (23:52)
[2020-05-07 06:47] LABS: African American GFR (CKD) 43 (>60 ml/min/1.73 sqM); Anion Gap 12 mmol/L; Blood Urea Nitrogen 10 mg/dL (7-17); Calcium 6.8 mg/dL (8.4-10.2); Carbon Dioxide 14 mmol/L (22-30); Chloride 112 mmol/L (98-107); Glucose 153 mg/dL (74-99); Magnesium 1.8 mg/dL (1.6-2.3); Non-African American GFR(CKD) 38 (>60 ml/min/1.73 sqM); Sodium 138 mmol/L (137-145)
[2020-05-07 06:57] LABS: Neutrophils # (M) 0.37 X 10*3/uL (2.00-8.90)
[2020-05-07] MEDS: SENNOSIDES 8.6 MG TAB PO SCH ×2 (07:43→10:14)
[2020-05-07] MEDS: ACYCLOVIR 200 MG CAP PO SCH ×3 (07:43→22:13)
--- NOTE | 2020-05-07 07:51 | P.PN ---
Subjective Progress Note Date: 05/06/[address] Ramirez and ENT. ENT will need to visualize from ooffice, will need to make this appointment at discharge. In the interim will move forward with barium swallow and CT of neck Objective - Vital Signs Vital signs: Vital Signs Temp 98.0 F 05/07/20 04:54 Pulse 87 05/07/20 04:54 Resp 16 05/07/20 04:54 BP 133/68 05/07/20 04:54 Pulse Ox 100 05/07/20 04:54 Intake & Output 05/06/20 05/07/20 05/07/20 18:59 06:59 18:59 Intake Total 120 Balance 120 Intake: Oral 120 Other: Voiding Method Toilet Toilet # Voids 3 1 - Constitutional General appearance: Present: cooperative, thin - EENT Eyes: Present: EOMI ENT: Present: NA/AT - Respiratory Respiratory: bilateral: diminished - Cardiovascular Rhythm: regular - Gastrointestinal General gastrointestinal: Present: normal bowel sounds - Integumentary Integumentary: Present: pale - Neurologic Neurologic: Present: CNII-XII intact - Musculoskeletal Musculoskeletal: Present: generalized weakness - Psychiatric Psychiatric: Present: A&O x's 3, appropriate affect, intact judgment & insight - Labs CBC & Chem 7: 05/06/20 06:20 05/07/20 05:52 Labs: Abnormal Lab Results - Last 24 Hours (Table) 05/06/20 05/06/20 05/07/20 Range/Units 06:20 06:20 05:52 WBC 0.79 L* (4.50-10.00) X 10*3/uL RBC 2.20 L (4.10-5.20) X 10*6/uL Hgb 7.7 L (12.0-15.0) g/dL Hct 22.9 L (37.2-46.3) % MCV 104.1 H (80.0-97.0) fL MCH 35.0 H (27.0-32.0) pg RDW 16.1 H (11.5-14.5) % Plt Count 42 L (140-440) X 10*3/uL Plt Count Comment A Metamyelocytes % 4 H (0-0) % Myelocytes % 1 H (0-0) % Neutrophils # (Manual) 0.37 L* (2.00-8.90) X 10*3/uL Lymphocytes # (Manual) 0.08 L (0.90-5.00) X 10*3/uL Potassium 3.3 L 3.0 L (3.5-5.5) mmol/L Chloride 112 H 112 H (96-109) mmol/L Carbon Dioxide 16.3 L 14 L (21.6-31.8) mmol/L Creatinine 1.7 H 1.46 H (0.6-1.5) mg/dL Est GFR (CKD-EPI)AfAm 36.0 L (60.0-200.0) Est GFR (CKD-EPI)NonAf 31.1 L (60.0-200.0) BUN/Creatinine Ratio 10.59 L (12.00-20.00) Ratio Glucose 127 H 153 H (70-110) mg/dL Calcium 7.1 L 6.8 L (8.7-10.3) mg/dL Microbiology - Last 24 Hours (Table) 05/05/20 15:30 Blood Culture - Preliminary Blood No Growth after 24 hours 05/05/20 13:09 Blood Culture - Preliminary Blood No Growth after 24 hours Assessment and Plan (1) Dysphagia Current Visit: Yes Status: Acute Code(s): R13.10 - DYSPHAGIA, UNSPECIFIED SNOMED Code(s): 47067817 (2) ARF (acute renal failure) Current Visit: No Status: Acute Code(s): N17.9 - ACUTE KIDNEY FAILURE, UNSPECIFIED SNOMED Code(s): 86952436 (3) NHL (non-Hodgkin's lymphoma) Current Visit: No Status: Chronic Priority: High Code(s): C85.90 - NON- HODGKIN LYMPHOMA, UNSPECIFIED, UNSPECIFIED SITE SNOMED Code(s): 070333217 Plan: Unable to do contrasted CT with renal function, non contrasted ok Speech consult for barium swallow Discussed with surgery team Family at bedside.
[2020-05-07 08:19] LABS: ALT 9 U/L (4-34); AST 17 U/L (14-36); Albumin 3.4 g/dL (3.5-5.0); Albumin/Globulin Ratio 1.3; Alkaline Phosphatase 53 U/L (38-126); Globulin 2.7 g/dL; Total Bilirubin 0.5 mg/dL (0.2-1.3); Total Protein 6.1 g/dL (6.3-8.2)
[2020-05-07] MEDS ORDERED: LIDOCAINE 1% INJ 10MG/ML (20 ML MDV) ONE (08:35)
[2020-05-07] MEDS ORDERED: PROPOFOL 10 MG/ML 20 ML VIAL IV ONE (08:35)
[2020-05-07] MEDS ORDERED: IV FLUID CONTINUATION 1,000 ML IV ONE ×2 (08:36)
--- NOTE | 2020-05-07 08:54 | P.PCN ---
Date of Procedure: 05/07/20 Description of Procedure: PREOPERATIVE DIAGNOSIS: Dysphagia. Under weight with weight loss History of lymphoma Atypical chest pain with epigastric abdominal pain POSTOPERATIVE DIAGNOSIS: Dysphagia. Under weight with weight loss History of lymphoma Atypical chest pain with epigastric abdominal pain Gastroesophageal reflux disease Chronic gastritis Diaphragmatic hiatal hernia Retain food stomach, posterior oropharynx, esophagus OPERATION: Esophagogastroduodenoscopy with rigid dilator over the guidewire 51 Fr. SURGEON: Adelina Ramirez MD ANESTHESIA: MAC. INDICATIONS: The patient is a 64-year-old female who presents with a history of dysphagia. Benefits and risks of the procedure were described. Informed consent was obtained. DESCRIPTION: The patient was brought into the endoscopy suite and laid in the left lateral decubitus position. After a timeout was confirmed, the procedure was initiated. An Olympus gastroscope was passed and the stomach was entered. Mild gastritis was identified. The scope was advanced to the duodenum which was unremarkable. Retroflexion the scope confirmed a Hill grade 4 lower esophageal valve. Next using an Welsh rigid dilator, a guidewire was placed through the pediatric gastroscope. Next the scope was withdrawn. A 51-Israeli rigid Welsh dilator was passed carefully along the posterior oropharynx to 40 cm and left in place for 2-3 minutes stretch. The dilator was withdrawn including the guidewire. The scope was reentered along the posterior oropharynx with no findings of full-thickness tear of the upper esophageal sphincter. Retained food was found within the posterior oropharynx, esophagus, proximal stomach. A large diaphragmatic hiatal hernia was identified. No full-thickness injury was encountered. The GI tract was desufflated. The patient tolerated the procedure well. FINDINGS: Squamocolumnar junction unremarkable at 34 cm. Diaphragmatic hiatus 40 cm Retained food posterior oropharynx, esophagus, proximal stomach Welsh rigid dilator 51-Israeli completed. Diaphragmatic hiatal hernia 6 cm Diffuse gastritis. Hill grade 4 lower esophageal valve. LA grade A esophagitis. RECOMMENDATIONS: Upper endoscopy as needed Omeprazole 20 mg daily May benefit from future dilation Benefit from antireflux operation
[2020-05-07] MEDS: DEXTROSE 5%-0.9% NACL 1,000 ML IV SCH ×2 (09:30→16:44)
[2020-05-07 10:03] LABS: Anisocytosis (M) 2+; Band Neutrophils % 20 %; Basophils # (M) 0.02 X 10*3/uL (0.00-0.10); Dohle Bodies 2+; Eosinophils # (M) 0.04 X 10*3/uL (0.04-0.35); HCT 22.7 % (37.2-46.3); HGB 7.8 g/dL (12.0-15.0); Lymphocytes # (M) 0.07 X 10*3/uL (0.90-5.00); MCH 35.5 pg (27.0-32.0); MCHC 34.4 g/dL (32.0-37.0); MCV 103.2 fL (80.0-97.0); Metamyelocytes % 5 % (0-0); Monocytes # (M) 0.39 X 10*3/uL (0.20-1.00); Myelocytes % 1 % (0-0); Neutrophils # (M) 1.14 X 10*3/uL (2.00-8.90); Neutrophils % (M) 45 %; Platelet Count 37 X 10*3/uL (140-440); RDW 16.3 % (11.5-14.5); WBC 1.75 X 10*3/uL (4.50-10.00)
[2020-05-07] MEDS: MAG HYDROX/AL HYDROX/SIMETH 30 ML, LIDOCAINE VISCOUS 30 ML, diphenhydrAMINE ELIXIR 75 M... PO SCH ×12 (10:14→20:16)
[2020-05-07] MEDS: PANTOPRAZOLE 40 MG/10 ML VIAL IVP SCH ×2 (10:14→20:16)
[2020-05-07] MEDS: HEPARIN SODIUM,PORCINE 5,000 UNIT/ML 1 ML VIAL SQ SCH ×2 (10:14→20:16)
[2020-05-07] MEDS: HYDROmorphone 0.5 MG/0.5 ML SYRINGE IVP PRN (10:24)
--- NOTE | 2020-05-07 10:46 | CDI ---
Documentation Clarification Form Date: 05/07/2020 10:34:28 AM From: Honey Reddy CCS, CCDS Admit Date: 05/04/2020 03:41:00 PM Patient Name: Elizabeth Quiroz Visit Number: [id number] Discharge Date: ATTENTION: The Clinical Documentation Specialists (CDI) and [facility] Coding Staff appreciate your assistance in clarifying documentation. Please respond to the clarification below the line at the bottom and electronically sign. The CDI & [facility] Coding staff will review the response and follow-up if needed. Please note: Queries are made part of the Legal Health Record. If you have any questions, please contact the author of this message via ITS. Dr. Cheng Zaidi. Sheet: Cachexia is documented in the 05/04 History & Physical and subsequent Progress Notes on 05/05 & 05/06. History/Risk Factors per the patient's Medical History in the 05/04 History & Physical: Stage IV B Cell non-Hodgkin Lymphoma, CKD IV, Hypertension, Mild Cardiomyopathy w/EF 45%, Hyperlipidemia, Chronic Low back Pain & Cervical Pain. Clinical Indicators: Presented to the ED on 05/04 with chest pain & trouble swallowing. ED Clinical Impression: Dysphagia. Labs 05/04: WBC 0.4, RBC 2.34, Hgb 8.2, hct 23.8, Pl Ct 41, Neutrophils 0.13, Lymphocytes 0.03, Monocytes 0.18, Na 134, K 3.0, CO2 17, BUN 18, Creatinine 1.98, glucose 141, Calcium 7.7. Current BMI 05/04: 17.5 Treatment 05/04: IV fluid 1,000 mls @ 75 mls/hr q13H, IV Dilaudid 0.5 mg, Heparin 5,000 unit sq q12H, IV Protonix 40 mg BID, NPO. Dietary Consult 05/06, reason: Malnutrition. Nutritional Assessment: Appetite: Fair 1-2 weeks, Intake: Poor, Difficulty Swallowing, Underweight, Weight: 47.627 kg, Height: 5 ft 5in, BMI: 17.4, IBW 84%, Usual Weight 51.256 kg, Weight loss 3.63 kg. In your professional opinion, can you please clarify if these findings signify one of the following conditions? o Mild Protein-Calorie Malnutrition o Moderate Protein-Calorie Malnutrition o Severe Protein-Calorie Malnutrition o Other condition, please specify o Unable to determine (Last Revision: September 2018) Moderate Protein-Calorie Malnutrition MTDD
[2020-05-07] MEDS ORDERED: Potassium Replacement Protocol 1 EACH MISC MISCELLANE PRN (11:17)
[2020-05-07] MEDS: POTASSIUM CHLORIDE 10 MEQ in WATER FOR INJECTION 1 100ML.BAG IVPB SCH ×4 (11:40→19:26)
[2020-05-07] MEDS: LEVOFLOXACIN 250MG-D5W PMX 250 MG in DEXTROSE/WATER 1 50ML.BAG IVPB SCH (12:44)
--- NOTE | 2020-05-07 14:19 | P.PN ---
Progress Note - Text Progress Note Date: 05/07/20 Patient reevaluated this afternoon following upper endoscopy. She is very happy. She can swallow easier and drink. Advance diet as tolerated. Follow-up as outpatient. Stable from a surgical standpoint discharge when medically stable.
[2020-05-07] MEDS ORDERED: ONDANSETRON 4 MG/2 ML VIAL IVP PRN (15:44)
[2020-05-07] MEDS: FILGRASTIM-SNDZ 300 MCG/0.5 ML SYRINGE SQ SCH (17:25)
[2020-05-07] MEDS: CARBAMIDE PEROXIDE 6.5% DROPS 15 ML BTL RIGHT EAR SCH (17:58)
[2020-05-07] MEDS: polyethylene glycoL 3350 17 GM POWD.PACK PO SCH (20:18)
--- NOTE | 2020-05-07 20:20 | P.PN ---
Subjective Progress Note Date: 05/07/20 Principal diagnosis: Dysphagia She still has some epigastric pain and tenderness but overall says she was feeling better this am. She underwent EGD today by surgery team found hiatal hernia gastritis, esophagitis and retained food in the oropharynx, esophagus and stomach status post dilatation followed by advancing diet as above Objective - Vital Signs Vital signs: Vital Signs Temp 98.1 F 05/07/20 16:19 Pulse 75 05/07/20 16:19 Resp 17 05/07/20 16:19 BP 114/56 05/07/20 16:19 Pulse Ox 100 05/07/20 16:19 Intake & Output 05/07/20 05/07/20 05/08/20 06:59 18:59 06:59 Intake Total 1200 Balance 1200 Intake: IV 100 Intake, IV Titration 1100 Amount Dextrose 5%-0.9% NaCl 1, 900 000 ml @ 75 mls/hr IV . [id number] [facility] Rx#:[id number] Potassium Chloride 10 meq 200 In Water For Injection 1 100ml.bag @ 100 mls/hr IVPB Q1HR [facility] Rx#: [id number] Other: Voiding Method Toilet Toilet # Voids 1 - Exam - Constitutional General appearance: Present: cooperative, thin - EENT Eyes: Present: EOMI ENT: Present: NA/AT - Respiratory Respiratory: bilateral: diminished - Cardiovascular Rhythm: regular - Gastrointestinal General gastrointestinal: Present: normal bowel sounds - Integumentary Integumentary: Present: pale - Neurologic Neurologic: Present: CNII-XII intact - Musculoskeletal Musculoskeletal: Present: generalized weakness - Psychiatric Psychiatric: Present: A&O x's 3, appropriate affect, intact judgment & insight - Labs CBC & Chem 7: 05/08/20 05:36 05/08/20 05:36 Labs: Abnormal Lab Results - Last 24 Hours (Table) 05/06/20 05/07/20 05/07/20 Range/Units 06:20 05:52 05:52 WBC 1.75 L (4.50-10.00) X 10*3/uL RBC 2.20 L (4.10-5.20) X 10*6/uL Hgb 7.8 L (12.0-15.0) g/dL Hct 22.7 L (37.2-46.3) % MCV 103.2 H (80.0-97.0) fL MCH 35.5 H (27.0-32.0) pg RDW 16.3 H (11.5-14.5) % Plt Count 37 L (140-440) X 10*3/uL Plt Count Comment A Metamyelocytes % 5 H (0-0) % Myelocytes % 1 H (0-0) % Neutrophils # (Manual) 0.37 L* 1.14 L (2.00-8.90) X 10*3/uL Lymphocytes # (Manual) 0.07 L (0.90-5.00) X 10*3/uL Potassium 3.0 L (3.5-5.1) mmol/L Chloride 112 H (98-107) mmol/L Carbon Dioxide 14 L (22-30) mmol/L Creatinine 1.46 H (0.52-1.04) mg/dL Glucose 153 H (74-99) mg/dL Calcium 6.8 L (8.4-10.2) mg/dL Total Protein 6.1 L (6.3-8.2) g/dL Albumin 3.4 L (3.5-5.0) g/dL Microbiology - Last 24 Hours (Table) 05/05/20 15:30 Blood Culture - Preliminary Blood No Growth after 48 hours 05/05/20 13:09 Blood Culture - Preliminary Blood No Growth after 48 hours Assessment and Plan (1) Dysphagia Current Visit: Yes Status: Acute Code(s): R13.10 - DYSPHAGIA, UNSPECIFIED SNOMED Code(s): 33497463 (2) ARF (acute renal failure) Current Visit: No Status: Acute Code(s): N17.9 - ACUTE KIDNEY FAILURE, UNSPECIFIED SNOMED Code(s): 52947320 (3) NHL (non-Hodgkin's lymphoma) Current Visit: No Status: Chronic Priority: High Code(s): C85.90 - NON-HO DGKIN LYMPHOMA, UNSPECIFIED, UNSPECIFIED SITE SNOMED Code(s): 261379537 Plan: Assessment and Plan (1) Dysphagia Current Visit: Yes Status: Acute Code(s): R13.10 - DYSPHAGIA, UNSPECIFIED SNOMED Code(s): 89034919 (2) ARF (acute renal failure) Current Visit: No Status: Acute Code(s): N17.9 - ACUTE KIDNEY FAILURE, UNSPECIFIED SNOMED Code(s): 46011379 (3) NHL (non-Hodgkin's lymphoma) Current Visit: No Status: Chronic Priority: High Code(s): C85.90 - NON- HODGKIN LYMPHOMA, UNSPECIFIED, UNSPECIFIED SITE SNOMED Code(s): 619863304 Plan: Status Post EGD: Evidence of esophagitis/gastritis Continue on PPI and Sucarafate Slow advancement of diet, so far tolerating.
[2020-05-07] MEDS ORDERED: CYANOCOBALAMIN 1,000 MCG/ML 1 ML VIAL IM ONE (22:45)
--- NOTE | 2020-05-07 22:56 | P.PN ---
Subjective This is a pleasant 64-year-old patient of Dr. Weller. She has a past medical history high-grade B-cell non-Hodgkin's lymphoma, Status post chemotherapy and she follows up with Dr. Gutiérrez. benign ovarian fibroma.PET scan showed areas of multiple uptake including left axilla, mediastinum, left breast, multiple areas in the retro-peritoneal.hepatitis C . Mild cardiomyopathy with EF of 45% with negative cardiac cath. Status post chemotherapy, Atrial fibrillation, hyperlipidemia, hypertension chronic low back pain and cervical pain where she follows up with Dr. Cummins, migraine, chronic kidney disease stage IV. She is a patient of Dr. Young and follow-up with Dr. Chau and Dr. West. Her pain management is Dr. Cummins Patient presents because of swallowing difficulty and decrease swallowing. Patient cannot eat she feels that food gets stuck in her throat and also she could not drink which is associated with vomiting. Sometimes she'll wake up in the middle of night choking. Associated with pain in the abdomen In the epigastric and radiating in the [place] up to the throat, followed by the patient has tenderness/stent and burning even without eating patient feels something stuck in her throat She denies chest pain or dyspnea or cough and only if she drinks. She is smoker about half pack per day quit about 2 weeks ago, no alcohol or illicit drugs. She follows up with Dr. Gutiérrez, she recently got chemotherapy and she has a follow-up appointment next month in May. Patient is tachycardic around 110, still vitals are stable wbc 0.4 K , Hb 8.2, platelets 41K, INR is 1.1. Sodium is 134, potassium 3.0, creatinine 1.9 which is close to her baseline of 2-2.2. Liver enzymes not elevated. Troponin is less than 0.012. Urine showing 2+ protein 3+ glucose, no evidence of infection. Coronavirus nondetected. EKG shows sinus tachycardia at 111, with QTC 524 and left bundle-branch block Chest x-ray: No acute process 05/05/2020 Patient presents with dysphagia and something stuck feeling in her throat. No oral thrush on inspection. She has epigastric pain and tenderness. No bowel movement or gas CT of the abdomen showing normal obstruction. Surgical team were consulted Keep patient nothing by mouth. Increase pain medication slightly as per patient Consult oncology team for her pancytopenia related to her non-Hodgkin lymphoma and chemotherapy 05/06/2020 Patient still complaining of from dysphagia, her abdominal pain is better controlled however has not completely resolved. Patient herself feels hungry. Slip stable vitals are stable. Labs show persistent pancytopenia and neutropenia. She has low-grade temperature of 99.9 on admission. Patient was already started on Levaquin and acyclovir by hematology/oncology team Her potassium 3.3, creatinine slightly down to 1.7 from 1.8 yesterday. She has advanced chronic kidney disease Surgery input is appreciated they recommend ENT consult and possible EGD with dilatation pending ENT evaluation. ENT team were consulted today. She has not been able to eat for a few days prior to admission, We will consider PICC line and TPN tomorrow. Consult dietitian 05/07/2020 Patient is more alert today she is started on liquid diet and she is tolerating that well in the afternoon. She still has some epigastric pain and tenderness She underwent EGD today by surgery team found hiatal hernia gastritis, esophagitis and retained food in the oropharynx, esophagus and stomach status post dilatation followed by advancing diet as above ENT team has been contacted and they prefer to see the patient in the office We will keep monitor the patient and if she keeps improvement then we'll consider discharge in 24-48 hours. Surgical team already cleared the patient for discharge Objective - Vital Signs Vital signs: Vital Signs Temp 98 F 05/07/20 20:50 Pulse 76 05/07/20 20:50 Resp 18 05/07/20 20:50 BP 130/66 05/07/20 20:50 Pulse Ox 100 05/07/20 20:50 Intake & Output 05/07/20 05/07/20 05/08/20 06:59 18:59 06:59 Intake Total 1200 Balance 1200 Intake: IV 100 Intake, IV Titration 1100 Amount Dextrose 5%-0.9% NaCl 1, 900 000 ml @ 75 mls/hr IV . [id number] [facility] Rx#:[id number] Potassium Chloride 10 meq 200 In Water For Injection 1 100ml.bag @ 100 mls/hr IVPB Q1HR [facility] Rx#: [id number] Other: Voiding Method Toilet Toilet # Voids 1 - Exam -GENERAL: The patient is alert and oriented x3, not in any acute distress. Thin built HEENT: Pupils are round and equally reacting to light. EOMI. No scleral icterus. No conjunctival pallor. Normocephalic, atraumatic. No pharyngeal erythema. No thyromegaly. CARDIOVASCULAR: S1 and S2 present. No murmurs, rubs, or gallops. PULMONARY: Chest is clear to auscultation, no wheezing or crackles. -ABDOMEN: Soft, epigastric tenderness, nondistended, normoactive bowel sounds. No palpable organomegaly. MUSCULOSKELETAL: No joint swelling or deformity. EXTREMITIES: No cyanosis, clubbing, or pedal edema. NEUROLOGICAL: Gross neurological examination did not reveal any focal deficits. SKIN: No rashes. no petechiae. - Labs CBC & Chem 7: 05/07/20 05:52 05/07/20 20:30 Labs: Abnormal Lab Results - Last 24 Hours (Table) 05/06/20 05/07/20 05/07/20 Range/Units 06:20 05:52 05:52 WBC 1.75 L (4.50-10.00) X 10*3/uL RBC 2.20 L (4.10-5.20) X 10*6/uL Hgb 7.8 L (12.0-15.0) g/dL Hct 22.7 L (37.2-46.3) % MCV 103.2 H (80.0-97.0) fL MCH 35.5 H (27.0-32.0) pg RDW 16.3 H (11.5-14.5) % Plt Count 37 L (140-440) X 10*3/uL Plt Count Comment A Metamyelocytes % 5 H (0-0) % Myelocytes % 1 H (0-0) % Neutrophils # (Manual) 0.37 L* 1.14 L (2.00-8.90) X 10*3/uL Lymphocytes # (Manual) 0.07 L (0.90-5.00) X 10*3/uL Potassium 3.0 L (3.5-5.1) mmol/L Chloride 112 H (98-107) mmol/L Carbon Dioxide 14 L (22-30) mmol/L Creatinine 1.46 H (0.52-1.04) mg/dL Glucose 153 H (74-99) mg/dL Calcium 6.8 L (8.4-10.2) mg/dL Total Protein 6.1 L (6.3-8.2) g/dL Albumin 3.4 L (3.5-5.0) g/dL Microbiology - Last 24 Hours (Table) 05/05/20 15:30 Blood Culture - Preliminary Blood No Growth after 48 hours 05/05/20 13:09 Blood Culture - Preliminary Blood No Growth after 48 hours Assessment and Plan Assessment: Dysphagia associated with epigastric pain radiating to the throat/odynophagia. EGD: Hiatal hernia, gastritis and esophagitis, status post dilatation Stage IV B-cell non-Hodgkin lymphoma involving multiple areas including the left axilla, mediastinum, left breast and multiple retroperitoneal areas Pancytopenia mostly is related to her chemotherapy Chronic kidney disease, stage IV Moderate calories protein mild nutrition History of hepatitis C Mild cardiomyopathy with ejection fraction 45% Benign ovarian fibroma Paroxysmal atrial fibrillation, not on anticoagulation due to thrombocytopenia Hypertension Hyperlipidemia Chronic low back pain and cervical pain History of migraine Cachexia Plan: This is a pleasant 64 years old female with advanced non-Hodgkin lymphoma presents with dysphagia and abdominal pain. Advance diet as tolerated, continue with Protonix. Discontinue hydration. Surgical consult . The patient for discharge. Hematology/oncology consult. ENT consult as outpatient. Pain management. Continue with antibiotic per oncology team, currently she is on L evaquin and acyclovir Labs and medication were reviewed.. Continue same treatment. Continue with s ymptomatic treatment. Resume home medication. Monitor lytes and vitals. DVT and GI prophylaxis. Further recommendations depends on the clinical course of the patient DVT prophylaxis: no Subcutaneous heparin due to her thrombocytopenia GI Prophylaxis: Ppi PT/OT: Pending Prognosis is guarded
[2020-05-08] MEDS: MAG HYDROX/AL HYDROX/SIMETH 30 ML, LIDOCAINE VISCOUS 30 ML, diphenhydrAMINE ELIXIR 75 M... PO SCH ×4 (08:23)
[2020-05-08] MEDS: ACYCLOVIR 200 MG CAP PO SCH ×3 (08:23→22:18)
[2020-05-08] MEDS: PANTOPRAZOLE 40 MG/10 ML VIAL IVP SCH ×2 (08:24→20:15)
[2020-05-08] MEDS: HEPARIN SODIUM,PORCINE 5,000 UNIT/ML 1 ML VIAL SQ SCH ×2 (08:24→08:26)
[2020-05-08] MEDS: CARBAMIDE PEROXIDE 6.5% DROPS 15 ML BTL RIGHT EAR SCH ×2 (08:25→20:16)
[2020-05-08 09:46] LABS: African American GFR (CKD) 49.9 (60.0-200.0); Anion Gap 7.3 mmol/L (4.00-12.00); BUN/Creat Ratio 5.38 Ratio (12.00-20.00); Calcium 6.8 mg/dL (8.7-10.3); Carbon Dioxide 16.7 mmol/L (21.6-31.8); Magnesium 1.8 mg/dL (1.5-2.4); Potassium 2.9 mmol/L (3.5-5.5)
[2020-05-08 09:58] LABS: Basophils # (M) 0.08 X 10*3/uL (0.00-0.10); Eosinophils # (M) 0.08 X 10*3/uL (0.04-0.35); HCT 21.1 % (37.2-46.3); HGB 7.4 g/dL (12.0-15.0); Lymphocytes # (M) 0.11 X 10*3/uL (0.90-5.00); MCH 35.7 pg (27.0-32.0); MCHC 35.1 g/dL (32.0-37.0); MCV 101.9 fL (80.0-97.0); Mean Platelet Volume 10.7 fL (9.5-12.2); Monocytes # (M) 0.38 X 10*3/uL (0.20-1.00); Myelocytes % 2 % (0-0); Neutrophils # (M) 1.99 X 10*3/uL (2.00-8.90); Neutrophils % (M) 74 %; Platelet Count 36 X 10*3/uL (140-440); RBC 2.07 X 10*6/uL (4.10-5.20); RDW 15.9 % (11.5-14.5); WBC 2.69 X 10*3/uL (4.50-10.00)
--- NOTE | 2020-05-08 11:05 | P.PN ---
Subjective Progress Note Date: 05/08/20 Principal diagnosis: Dysphagia Discussed with patient, RN and DIeticien and unable to meet her nutritional needs, therefore short term additional feeding via dophoff is recommended. Objective - Vital Signs Vital signs: Vital Signs Temp 97.9 F 05/08/20 05:00 Pulse 81 05/08/20 05:00 Resp 18 05/08/20 05:00 BP 123/71 05/08/20 05:00 Pulse Ox 94 L 05/08/20 05:00 Intake & Output 05/07/20 05/08/20 05/08/20 18:59 06:59 18:59 Intake Total 1200 500 Balance 1200 500 Intake: IV 100 Intake, IV Titration 1100 Amount Dextrose 5%-0.9% NaCl 1, 900 000 ml @ 75 mls/hr IV . [id number] [facility] Rx#:[id number] Potassium Chloride 10 meq 200 In Water For Injection 1 100ml.bag @ 100 mls/hr IVPB Q1HR [facility] Rx#: [id number] Oral 500 Other: Voiding Method Toilet Toilet - Exam - Constitutional General appearance: Present: cooperative, thin - EENT Eyes: Present: EOMI ENT: Present: NA/AT - Respiratory Respiratory: bilateral: diminished - Cardiovascular Rhythm: regular - Gastrointestinal General gastrointestinal: Present: normal bowel sounds - Integumentary Integumentary: Present: pale - Neurologic Neurologic: Present: CNII-XII intact - Musculoskeletal Musculoskeletal: Present: generalized weakness - Psychiatric Psychiatric: Present: A&O x's 3, appropriate affect, intact judgment & insight - Labs CBC & Chem 7: 05/08/20 05:36 05/08/20 16:43 Labs: Abnormal Lab Results - Last 24 Hours (Table) 05/08/20 05/08/20 Range/Units 05:36 05:36 WBC 2.69 L (4.50-10.00) X 10*3/uL RBC 2.07 L (4.10-5.20) X 10*6/uL Hgb 7.4 L (12.0-15.0) g/dL Hct 21.1 L (37.2-46.3) % MCV 101.9 H (80.0-97.0) fL MCH 35.7 H (27.0-32.0) pg RDW 15.9 H (11.5-14.5) % Plt Count 36 L (140-440) X 10*3/uL Plt Count Comment A Myelocytes % 2 H (0-0) % Neutrophils # (Manual) 1.99 L (2.00-8.90) X 10*3/uL Lymphocytes # (Manual) 0.11 L (0.90-5.00) X 10*3/uL Potassium 2.9 L (3.5-5.5) mmol/L Chloride 116 H (96-109) mmol/L Carbon Dioxide 16.7 L (21.6-31.8) mmol/L BUN 7.0 L (9.0-27.0) mg/dL Est GFR (CKD-EPI)AfAm 49.9 L (60.0-200.0) Est GFR (CKD-EPI)NonAf 43.0 L (60.0-200.0) BUN/Creatinine Ratio 5.38 L (12.00-20.00) Ratio Glucose 132 H (70-110) mg/dL Calcium 6.8 L (8.7-10.3) mg/dL Microbiology - Last 24 Hours (Table) 05/05/20 15:30 Blood Culture - Preliminary Blood No Growth after 48 hours 05/05/20 13:09 Blood Culture - Preliminary Blood No Growth after 48 hours Assessment and Plan (1) Dysphagia Current Visit: Yes Status: Acute Code(s): R13.10 - DYSPHAGIA, UNSPECIFIED SNOMED Code(s): 96771827 (2) ARF (acute renal failure) Current Visit: No Status: Acute Code(s): N17.9 - ACUTE KIDNEY FAILURE, UNSPECIFIED SNOMED Code(s): 29201193 (3) NHL (non-Hodgkin's lymphoma) Current Visit: No Status: Chronic Priority: High Code(s): C85.90 - NON- HODGKIN LYMPHOMA, UNSPECIFIED, UNSPECIFIED SITE SNOMED Code(s): 853586934 (4) Hypokalemia Current Visit: Yes Status: Acute Code(s): E87.6 - HYPOKALEMIA SNOMED Code(s): 18835884 (5) Bicytopenia Current Visit: No Status: Acute Priority: Low Code(s): D75.89 - OTHER SPECIFIED DISEASES OF BLOOD AND BLOOD-FORMING ORGANS SNOMED Code(s): 75220600 (6) Hypocalcemia Current Visit: Yes Status: Acute Code(s): E83.51 - HYPOCALCEMIA SNOMED Code(s): 8208174 (7) Hypophosphatemia Current Visit: Yes Status: Acute Code(s): E83.39 - OTHER DISORDERS OF PHOSPHORUS METABOLISM SNOMED Code(s): 7614764 Plan: Assessment and Plan Dysphagia Current Visit: Yes Status: Acute Code(s): R13.10 - DYSPHAGIA, UNSPECIFIED SNOMED Code(s): 21927628 ARF (acute renal failure) Current Visit: No Status: Acute Code(s): N17.9 - ACUTE KIDNEY FAILURE, UNSPECIFIED SNOMED Code(s): 81053766 NHL (non-Hodgkin's lymphoma) Current Visit: No Status: Chronic Priority: High Code(s): C85.90 - NON- HODGKIN LYMPHOMA, UNSPECIFIED, UNSPECIFIED SITE SNOMED Code(s): 320063301 Plan: Status Post EGD: On Thursday Evidence of esophagitis/gastritis Continue on PPI and Sucarafate Slow advancement of diet, so far tolerating. - replace Potassium/Phosphorus. Dophoff with nutition supplementation to increase healing, performance PT/OT
[2020-05-08] MEDS: LEVOFLOXACIN 250MG-D5W PMX 250 MG in DEXTROSE/WATER 1 50ML.BAG IVPB SCH (12:06)
[2020-05-08] MEDS: POTASSIUM CHLORIDE ER 20 MEQ TAB.ER PO SCH ×3 (12:06→15:02)
[2020-05-08] MEDS: SUCRALFATE 1 GM TAB PO SCH ×2 (12:07→16:38)
[2020-05-08] MEDS: CYANOCOBALAMIN 1,000 MCG/ML 1 ML VIAL IM SCH (12:09)
--- NOTE | 2020-05-08 14:25 | P.PN ---
Subjective Progress Note Date: 05/08/20 CHIEF COMPLAINT: Dysphagia HISTORY OF PRESENT ILLNESS: Patient is status post Esophagogastroduodenoscopy with dilation. Patient reports no difficulty with swallowing. She's currently on clear liquids. She denies any nausea or vomiting. She reports feeling better than when she presented to the hospital. She denies any abdominal pain. She is afebrile. WBC 2.69 Hgb 7.4 platelets 36 sodium 140 potassium 2.9 creatinine 1.3 medicine service has patient scheduled for modified barium swallow today. PHYSICAL EXAM: VITAL SIGNS: Reviewed GENERAL: Well-developed in no acute distress. HEENT: No sclera icterus. Extraocular movements grossly intact. Moist buccal mucosa. Head is atraumatic, normocephalic. Hears conversational speech. No nasal drainage. NECK: Supple without lymphadenopathy. CHEST: Non-labored respirations and equal bilateral excursions. CARDIOVASCULAR: Palpable 2+ radial pulses. ABDOMEN: Soft. Nondistended. Nontender. MUSCULOSKELETAL: No clubbing or cyanosis. NEUROLOGIC: No focal or lateralizing signs. Cranial nerves II through XII grossly intact. PSYCH: Appropriate affect. Alert and oriented to person, place and time. SKIN: Well perfused. Good skin turgor. ASSESSMENT: Dysphagia Under weight with weight loss History of lymphoma Atypical chest pain with epigastric abdominal pain Gastroesophageal reflux disease Chronic gastritis Diaphragmatic hiatal hernia Retain food stomach, posterior oropharynx, esophagus PLAN: -Continue supportive care -Potassium be replacement medicine service -Continue PPI -Patient can be discharge from surgical standpoint when medically stable Physician Icu Manager note has been reviewed by physician. Signing provider agrees with the documented findings, assessment, and plan of care. Objective - Vital Signs Vital signs: Vital Signs Temp 97.8 F 05/08/20 13:45 Pulse 85 05/08/20 13:45 Resp 16 05/08/20 13:45 BP 130/75 05/08/20 13:45 Pulse Ox 100 05/08/20 13:45 Intake & Output 05/07/20 05/08/20 05/08/20 18:59 06:59 18:59 Intake Total 1200 500 Balance 1200 500 Weight 47.627 kg Intake: IV 100 Intake, IV Titration 1100 Amount Dextrose 5%-0.9% NaCl 1, 900 000 ml @ 75 mls/hr IV . [id number] [facility] Rx#:[id number] Potassium Chloride 10 meq 200 In Water For Injection 1 100ml.bag @ 100 mls/hr IVPB Q1HR [facility] Rx#: [id number] Oral 500 Other: Voiding Method Toilet Toilet - Labs CBC & Chem 7: 05/08/20 05:36 05/08/20 05:36 Labs: Abnormal Lab Results - Last 24 Hours (Table) 05/08/20 05/08/20 Range/Units 05:36 05:36 WBC 2.69 L (4.50-10.00) X 10*3/uL RBC 2.07 L (4.10-5.20) X 10*6/uL Hgb 7.4 L (12.0-15.0) g/dL Hct 21.1 L (37.2-46.3) % MCV 101.9 H (80.0-97.0) fL MCH 35.7 H (27.0-32.0) pg RDW 15.9 H (11.5-14.5) % Plt Count 36 L (140-440) X 10*3/uL Plt Count Comment A Myelocytes % 2 H (0-0) % Neutrophils # (Manual) 1.99 L (2.00-8.90) X 10*3/uL Lymphocytes # (Manual) 0.11 L (0.90-5.00) X 10*3/uL Potassium 2.9 L (3.5-5.5) mmol/L Chloride 116 H (96-109) mmol/L Carbon Dioxide 16.7 L (21.6-31.8) mmol/L BUN 7.0 L (9.0-27.0) mg/dL Est GFR (CKD-EPI)AfAm 49.9 L (60.0-200.0) Est GFR (CKD-EPI)NonAf 43.0 L (60.0-200.0) BUN/Creatinine Ratio 5.38 L (12.00-20.00) Ratio Glucose 132 H (70-110) mg/dL Calcium 6.8 L (8.7-10.3) mg/dL Microbiology - Last 24 Hours (Table) 05/05/20 15:30 Blood Culture - Preliminary Blood No Growth after 48 hours 05/05/20 13:09 Blood Culture - Preliminary Blood No Growth after 48 hours
--- NOTE | 2020-05-08 15:30 | FL ---
EXAMINATION TYPE: FL barium swallow w video DATE OF EXAM: 05/08/2020 CLINICAL HISTORY: 64-year-old female with food sticking in throat, rule out oropharyngeal Dysphagia. TECHNIQUE: Deglutition study is performed utilizing thin liquid barium, honey and nectar thick liqui d barium, barium thick applesauce, and barium coated cracker. Total fluoroscopy time: 1 minute 31 seconds. Total images: None. Real-time fluoroscopy was provided to speech pathology. COMPARISON: None. FINDINGS: The oral and pharyngeal phases show satisfactory initiation and propagation with all modalities teste d. The patient is edentulous. There is no evidence of penetration or aspiration with any modality yonathan patrick. No significant pharyngeal residue was appreciated. IMPRESSION: No penetration or aspiration. Please refer to speech therapist notes for further details if necessary.
[2020-05-08] MEDS ORDERED: MAG HYDROX/AL HYDROX/SIMETH 30 ML, HYOSCYAMINE ELIXIR 10 ML, LIDOCAINE VISCOUS 2% 10 ML PO ONE ×6 (16:00)
[2020-05-08] MEDS: POTAS-SOD-PHOS 278-164-250 MG 1 EACH PACKET PO SCH ×2 (16:40→22:18)
[2020-05-08] MEDS: FILGRASTIM-SNDZ 300 MCG/0.5 ML SYRINGE SQ SCH (17:04)
[2020-05-08] MEDS: HYDROmorphone 1 MG/ML 1 ML SYRINGE IVP PRN (20:15)
[2020-05-08] MEDS: polyethylene glycoL 3350 17 GM POWD.PACK PO SCH (20:16)
[2020-05-08] MEDS ORDERED: POTASSIUM CHLORIDE ER 20 MEQ TAB.ER PO STA (21:44)
--- NOTE | 2020-05-08 21:54 | P.PN ---
Subjective This is a pleasant 64-year-old patient of Dr. Weller. She has a past medical history high-grade B-cell non-Hodgkin's lymphoma, Status post chemotherapy and she follows up with Dr. Gutiérrez. benign ovarian fibroma.PET scan showed areas of multiple uptake including left axilla, mediastinum, left breast, multiple areas in the retro-peritoneal.hepatitis C . Mild cardiomyopathy with EF of 45% with negative cardiac cath. Status post chemotherapy, Atrial fibrillation, hyperlipidemia, hypertension chronic low back pain and cervical pain where she follows up with Dr. Cummins, migraine, chronic kidney disease stage IV. She is a patient of Dr. Young and follow-up with Dr. Chau and Dr. West. Her pain management is Dr. Cummins Patient presents because of swallowing difficulty and decrease swallowing. Patient cannot eat she feels that food gets stuck in her throat and also she could not drink which is associated with vomiting. Sometimes she'll wake up in the middle of night choking. Associated with pain in the abdomen In the epigastric and radiating in the [place] up to the throat, followed by the patient has tenderness/stent and burning even without eating patient feels something stuck in her throat She denies chest pain or dyspnea or cough and only if she drinks. She is smoker about half pack per day quit about 2 weeks ago, no alcohol or illicit drugs. She follows up with Dr. Gutiérrez, she recently got chemotherapy and she has a follow-up appointment next month in May. Patient is tachycardic around 110, still vitals are stable wbc 0.4 K , Hb 8.2, platelets 41K, INR is 1.1. Sodium is 134, potassium 3.0, creatinine 1.9 which is close to her baseline of 2-2.2. Liver enzymes not elevated. Troponin is less than 0.012. Urine showing 2+ protein 3+ glucose, no evidence of infection. Coronavirus nondetected. EKG shows sinus tachycardia at 111, with QTC 524 and left bundle-branch block Chest x-ray: No acute process 05/05/2020 Patient presents with dysphagia and something stuck feeling in her throat. No oral thrush on inspection. She has epigastric pain and tenderness. No bowel movement or gas CT of the abdomen showing normal obstruction. Surgical team were consulted Keep patient nothing by mouth. Increase pain medication slightly as per patient Consult oncology team for her pancytopenia related to her non-Hodgkin lymphoma and chemotherapy 05/06/2020 Patient still complaining of from dysphagia, her abdominal pain is better controlled however has not completely resolved. Patient herself feels hungry. Slip stable vitals are stable. Labs show persistent pancytopenia and neutropenia. She has low-grade temperature of 99.9 on admission. Patient was already started on Levaquin and acyclovir by hematology/oncology team Her potassium 3.3, creatinine slightly down to 1.7 from 1.8 yesterday. She has advanced chronic kidney disease Surgery input is appreciated they recommend ENT consult and possible EGD with dilatation pending ENT evaluation. ENT team were consulted today. She has not been able to eat for a few days prior to admission, We will consider PICC line and TPN tomorrow. Consult dietitian 05/07/2020 Patient is more alert today she is started on liquid diet and she is tolerating that well in the afternoon. She still has some epigastric pain and tenderness She underwent EGD today by surgery team found hiatal hernia gastritis, esophagitis and retained food in the oropharynx, esophagus and stomach status post dilatation followed by advancing diet as above ENT team has been contacted and they prefer to see the patient in the office We will keep monitor the patient and if she keeps improvement then we'll consider discharge in 24-48 hours. Surgical team already cleared the patient for discharge 05/08/20 she is status post EGD and esophageal dilatation, after that patient start tolerate some liquid diet, surgery team. The patient for discharge however patient was instructed she may need repeat dilatation in the future and she understands Patient is started on liquid diet but she has some worsening abdominal pain today so Carafate and GI cocktail were added to her regimen of Protonix. She passed barium swallow evaluation with no penetration or aspiration so diet can be advanced tomorrow but slowly to full liquid diet and as tolerated Replace electrolytes and monitor labs. Creatinine improved down to 1.3, discontinue IV fluids. Repeat labs in the morning Patient is on Levaquin, psych over and figastrim as per oncology (pancytopenia is improved) Prognosis remains guarded Objective - Vital Signs Vital signs: Vital Signs Temp 97.8 F 05/08/20 13:45 Pulse 85 05/08/20 13:45 Resp 16 05/08/20 13:45 BP 130/75 05/08/20 13:45 Pulse Ox 100 05/08/20 13:45 Intake & Output 05/08/20 05/08/20 05/09/20 06:59 18:59 06:59 Intake Total 500 Balance 500 Weight 47.627 kg Intake: Oral 500 Other: Voiding Method Toilet # Voids 1 - Exam -GENERAL: The patient is alert and oriented x3, not in any acute distress. Thin built HEENT: Pupils are round and equally reacting to light. EOMI. No scleral icterus. No conjunctival pallor. Normocephalic, atraumatic. No pharyngeal erythema. No thyromegaly. CARDIOVASCULAR: S1 and S2 present. No murmurs, rubs, or gallops. PULMONARY: Chest is clear to auscultation, no wheezing or crackles. -ABDOMEN: Soft, epigastric tenderness, nondistended, normoactive bowel sounds. No palpable organomegaly. MUSCULOSKELETAL: No joint swelling or deformity. EXTREMITIES: No cyanosis, clubbing, or pedal edema. NEUROLOGICAL: Gross neurological examination did not reveal any focal deficits. SKIN: No rashes. no petechiae. - Labs CBC & Chem 7: 05/08/20 05:36 05/08/20 16:43 Labs: Abnormal Lab Results - Last 24 Hours (Table) 05/08/20 05/08/20 Range/Units 05:36 05:36 WBC 2.69 L (4.50-10.00) X 10*3/uL RBC 2.07 L (4.10-5.20) X 10*6/uL Hgb 7.4 L (12.0-15.0) g/dL Hct 21.1 L (37.2-46.3) % MCV 101.9 H (80.0-97.0) fL MCH 35.7 H (27.0-32.0) pg RDW 15.9 H (11.5-14.5) % Plt Count 36 L (140-440) X 10*3/uL Plt Count Comment A Myelocytes % 2 H (0-0) % Neutrophils # (Manual) 1.99 L (2.00-8.90) X 10*3/uL Lymphocytes # (Manual) 0.11 L (0.90-5.00) X 10*3/uL Potassium 2.9 L (3.5-5.5) mmol/L Chloride 116 H (96-109) mmol/L Carbon Dioxide 16.7 L (21.6-31.8) mmol/L BUN 7.0 L (9.0-27.0) mg/dL Est GFR (CKD-EPI)AfAm 49.9 L (60.0-200.0) Est GFR (CKD-EPI)NonAf 43.0 L (60.0-200.0) BUN/Creatinine Ratio 5.38 L (12.00-20.00) Ratio Glucose 132 H (70-110) mg/dL Calcium 6.8 L (8.7-10.3) mg/dL Microbiology - Last 24 Hours (Table) 05/05/20 15:30 Blood Culture - Preliminary Blood No Growth after 72 hours 05/05/20 13:09 Blood Culture - Preliminary Blood No Growth after 72 hours Assessment and Plan Assessment: Dysphagia associated with epigastric pain radiating to the throat/odynophagia. EGD: Hiatal hernia, gastritis and esophagitis, status post dilatation Stage IV B-cell non-Hodgkin lymphoma involving multiple areas including the left axilla, mediastinum, left breast and multiple retroperitoneal areas Pancytopenia mostly is related to her chemotherapy, improved Chronic kidney disease, stage IV Moderate calories protein mild nutrition History of hepatitis C Mild cardiomyopathy with ejection fraction 45% Benign ovarian fibroma Paroxysmal atrial fibrillation, not on anticoagulation due to thrombocytopenia Hypertension Hyperlipidemia Chronic low back pain and cervical pain History of migraine Cachexia Plan: This is a pleasant 64 years old female with advanced non-Hodgkin lymphoma presents with dysphagia and abdominal pain. Advance diet as tolerated, continue with Protonix. Discontinue hydration. Surgical consult cleared Patient for discharge . Hematology/oncology consult. ENT consult as outpatient. Pain management. Continue with antibiotic per oncology team, currently she is on Levaquin and acyclovir Labs and medication were reviewed.. Continue same treatment. Continue with symptomatic treatment. Resume home medication. Monitor lytes and vitals. DVT and GI prophylaxis. Further recommendations depends on the clinical course of the patient DVT prophylaxis: no Subcutaneous heparin due to her thrombocytopenia GI Prophylaxis: Ppi PT/OT: Pending Prognosis is guarded
[2020-05-08] MEDS ORDERED: MAGNESIUM SULFATE-D5W PMX 1 GM in DEXTROSE/WATER 1 100ML.BAG IVPB ONE (22:00)
[2020-05-08] MEDS ORDERED: POTASSIUM BICARBONATE/CIT AC 20 MEQ TABLET.EFF PO ONE (22:15)
[2020-05-08] MEDS: MAG HYDROX/AL HYDROX/SIMETH 30 ML, HYOSCYAMINE ELIXIR 10 ML, LIDOCAINE VISCOUS 2% 10 ML PO SCH ×3 (22:20)
[2020-05-09 06:44] LABS: African American GFR (CKD) 52 (>60 ml/min/1.73 sqM); Anion Gap 8 mmol/L; Blood Urea Nitrogen 5 mg/dL (7-17); Calcium 6.8 mg/dL (8.4-10.2); Carbon Dioxide 16 mmol/L (22-30); Chloride 113 mmol/L (98-107); Glucose 111 mg/dL (74-99); Magnesium 2.1 mg/dL (1.6-2.3); Non-African American GFR(CKD) 45 (>60 ml/min/1.73 sqM); Potassium 3.3 mmol/L (3.5-5.1); Sodium 137 mmol/L (137-145)
[2020-05-09 07:39] VITALS: RESP 16
[2020-05-09] MEDS: ACYCLOVIR 200 MG CAP PO SCH (08:50)
[2020-05-09] MEDS: SUCRALFATE 1 GM TAB PO SCH ×2 (08:50→12:13)
[2020-05-09] MEDS: POTAS-SOD-PHOS 278-164-250 MG 1 EACH PACKET PO SCH (08:51)
[2020-05-09] MEDS: PANTOPRAZOLE 40 MG/10 ML VIAL IVP SCH (08:51)
[2020-05-09] MEDS: SENNOSIDES 8.6 MG TAB PO SCH (08:51)
[2020-05-09] MEDS: CYANOCOBALAMIN 1,000 MCG/ML 1 ML VIAL IM SCH (08:51)
[2020-05-09] MEDS: CARBAMIDE PEROXIDE 6.5% DROPS 15 ML BTL RIGHT EAR SCH (08:52)
[2020-05-09] MEDS: MAG HYDROX/AL HYDROX/SIMETH 30 ML, HYOSCYAMINE ELIXIR 10 ML, LIDOCAINE VISCOUS 2% 10 ML PO SCH ×3 (08:52)
--- NOTE | 2020-05-09 11:14 | P.PN ---
Subjective Progress Note Date: 05/09/20 Principal diagnosis: Dysphagia Throat is still sore and not consuming enough PO intake to provide healing for improvement. She is able to tolerate small PO intake, Discussed with surgery team and have asked them to please evaluate for Dophoff and temporary supplemental nutritional. Although she really feels strong enough to go home. Family at bedside and ok with discharge, scott bhardwajave her follow-up in office thursday or thursday to re-evaluate if pursueing chemo this week or holding one more week. Objective - Vital Signs Vital signs: Vital Signs Temp 98.1 F 05/09/20 07:38 Pulse 82 05/09/20 07:38 Resp 16 05/09/20 07:38 BP 117/74 05/09/20 07:38 Pulse Ox 100 05/09/20 07:38 Intake & Output 05/08/20 05/09/20 05/09/20 18:59 06:59 18:59 Intake Total 500 640 Balance 500 640 Weight 47.627 kg Intake: Intake, IV Titration 0 Amount IV Fluid Continuation 1, 0 000 ml @ 0 mls/hr IV .STCloudvu -MED ONE Rx#:[id number] Oral 500 640 Other: Voiding Method Toilet Toilet # Voids 1 - Exam - Constitutional General appearance: Present: cooperative, thin - EENT Eyes: Present: EOMI ENT: Present: NA/AT - Respiratory Respiratory: bilateral: diminished - Cardiovascular Rhythm: regular - Gastrointestinal General gastrointestinal: Present: normal bowel sounds - Integumentary Integumentary: Present: pale - Neurologic Neurologic: Present: CNII-XII intact - Musculoskeletal Musculoskeletal: Present: generalized weakness - Psychiatric Psychiatric: Present: A&O x's 3, appropriate affect, intact judgment & insight - Labs CBC & Chem 7: 05/09/20 11:31 05/09/20 11:31 Labs: Abnormal Lab Results - Last 24 Hours (Table) 05/09/20 Range/Units 05:25 Potassium 3.3 L (3.5-5.1) mmol/L Chloride 113 H (98-107) mmol/L Carbon Dioxide 16 L (22-30) mmol/L BUN 5 L (7-17) mg/dL Creatinine 1.25 H (0.52-1.04) mg/dL Glucose 111 H (74-99) mg/dL Calcium 6.8 L (8.4-10.2) mg/dL Microbiology - Last 24 Hours (Table) 05/05/20 15:30 Blood Culture - Preliminary Blood No Growth after 72 hours 05/05/20 13:09 Blood Culture - Preliminary Blood No Growth after 72 hours Assessment and Plan (1) Dysphagia Status: Acute Code(s): R13.10 - DYSPHAGIA, UNSPECIFIED SNOMED Code(s): 4073 9000 (2) ARF (acute renal failure) Status: Acute Code(s): N17.9 - ACUTE KIDNEY FAILURE, UNSPECIFIED SNOMED Code(s): 13776479 (3) NHL (non-Hodgkin's lymphoma) Status: Chronic Priority: High Code(s): C85.90 - NON-HODGKIN LYMPHOMA, UNSPECIFIED, UNSPECIFIED SITE SNOMED Code(s): 046934910 Plan: Assessment and Plan (1) Dysphagia Current Visit: Yes Status: Acute Code(s): R13.10 - DYSPHAGIA, UNSPECIFIED SNOMED Code(s): 50860806 (2) ARF (acute renal failure) Current Visit: No Status: Acute Code(s): N17.9 - ACUTE KIDNEY FAILURE, UNSPECIFIED SNOMED Code(s): 46148606 (3) NHL (non-Hodgkin's lymphoma) Current Visit: No Status: Chronic Priority: High Code(s): C85.90 - NON-H ODGKIN LYMPHOMA, UNSPECIFIED, UNSPECIFIED SITE SNOMED Code(s): 511768185 Plan: Status Post EGD: Evidence of esophagitis/gastritis Continue on PPI and Sucarafate Patient will increase PO intake and diet at home, mentally being home will help and will see her thursday or thursday in office.
[2020-05-09 11:41] LABS: Basophils # (M) 0 X 10*3/uL (0.00-0.10); Eosinophils # (M) 0.15 X 10*3/uL (0.04-0.35); HCT 21.5 % (37.2-46.3); HGB 7.5 g/dL (12.0-15.0); MCH 35.5 pg (27.0-32.0); MCHC 34.9 g/dL (32.0-37.0); MCV 101.9 fL (80.0-97.0); Mean Platelet Volume 9.4 fL (9.5-12.2); Metamyelocytes % 1 % (0-0); Monocytes # (M) 0.65 X 10*3/uL (0.20-1.00); Myelocytes % 3 % (0-0); Neutrophils # (M) 3.92 X 10*3/uL (2.00-8.90); Neutrophils % (M) 78 %; Platelet Count 32 X 10*3/uL (140-440); RBC 2.11 X 10*6/uL (4.10-5.20); RDW 16.4 % (11.5-14.5); Toxic Granulation 2+; WBC 5.02 X 10*3/uL (4.50-10.00)
[2020-05-09 11:44] LABS: Anisocytosis Slight; HCT 23.4 % (34.0-46.0); MCH 34.6 pg (25.0-35.0); MCV 101.8 fL (80.0-100.0); Macrocytosis Slight; Mean Platelet Volume 9.3; Poikilocytosis Slight; RDW 17.2 % (11.5-15.5); WBC 5.4 k/uL (3.8-10.6)
[2020-05-09 11:53] LABS: Platelet Count 31 k/uL (150-450)
[2020-05-09] MEDS: LEVOFLOXACIN 250MG-D5W PMX 250 MG in DEXTROSE/WATER 1 50ML.BAG IVPB SCH (12:13)
[2020-05-09 12:18] LABS: Band Neutrophils % 5 %; Basophils # (M) 0.05 k/uL (0-0.2); Eosinophils # (M) 0.11 k/uL (0-0.7); Lymphocytes # (M) 0.22 k/uL (1.0-4.8); Metamyelocytes # (M) 0.05 k/uL (0); Metamyelocytes % 1 %; Monocytes # (M) 0.86 k/uL (0-1.0); Neutrophils % (M) 73 %; Nucleated Red Blood Cells 0 /100 WBC (0-0); Total Cells Counted 200
[2020-05-09 12:20] VITALS: BP 129/71; PULSE 89; TEMP 97.6
--- NOTE | 2020-05-09 13:15 | P.PN ---
Subjective Progress Note Date: 05/09/20 CHIEF COMPLAINT: Dysphagia HISTORY OF PRESENT ILLNESS: Patient is status post Esophagogastroduodenoscopy with dilation on 05/07/20. Patient reports no difficulty with swallowing. Patient reports tolerating regular food. She was able to eat small bites of roast beef sandwich. Patient tolerated breakfast and lunch. She does not like the hospital food. She is able to eat the food her brought into the hospital. She is afebrile. WBC 5.4 K3.4 Mg 2.1 She passed her MBS study yesterday. PHYSICAL EXAM: VITAL SIGNS: Reviewed GENERAL: Well-developed in no acute distress. HEENT: No sclera icterus. Extraocular movements grossly intact. Moist buccal mucosa. Head is atraumatic, normocephalic. Hears conversational speech. No nasal drainage. NECK: Supple without lymphadenopathy. CHEST: Non-labored respirations and equal bilateral excursions. CARDIOVASCULAR: Palpable 2+ radial pulses. ABDOMEN: Soft. Nondistended. Nontender. MUSCULOSKELETAL: No clubbing or cyanosis. NEUROLOGIC: No focal or lateralizing signs. Cranial nerves II through XII grossly intact. PSYCH: Appropriate affect. Alert and oriented to person, place and time. SKIN: Well perfused. Good skin turgor. ASSESSMENT: Dysphagia Under weight with weight loss History of lymphoma Atypical chest pain with epigastric abdominal pain Gastroesophageal reflux disease Chronic gastritis Diaphragmatic hiatal hernia Retain food stomach, posterior oropharynx, esophagus PLAN: -Continue regular diet -Continue supportive care -Potassium being replaced by medicine service -Continue PPI -Patient can be discharge from surgical standpoint when medically stable Physician Field Services Manager note has been reviewed by physician. Signing provider agrees with the documented findings, assessment, and plan of care. Objective - Vital Signs Vital signs: Vital Signs Temp 97.6 F 05/09/20 12:20 Pulse 89 05/09/20 12:20 Resp 16 05/09/20 12:20 BP 129/71 05/09/20 12:20 Pulse Ox 100 05/09/20 12:20 Intake & Output 05/08/20 05/09/20 05/09/20 18:59 06:59 18:59 Intake Total 500 640 Balance 500 640 Weight 47.627 kg Intake: Intake, IV Titration 0 Amount IV Fluid Continuation 1, 0 000 ml @ 0 mls/hr IV .[employer] ONE Rx#:[id number] Oral 500 640 Other: Voiding Method Toilet Toilet # Voids 1 - Labs CBC & Chem 7: 05/09/20 11:31 05/09/20 11:31 Labs: Abnormal Lab Results - Last 24 Hours (Table) 05/09/20 05/09/20 05/09/20 Range/Units 05:25 05:25 11:31 RBC 2.11 L 2.30 L (4.10-5.20) X 10*6/uL Hgb 7.5 L 8.0 L (12.0-15.0) g/dL Hct 21.5 L 23.4 L (37.2-46.3) % MCV 101.9 H 101.8 H (80.0-97.0) fL MCH 35.5 H (27.0-32.0) pg RDW 16.4 H 17.2 H (11.5-14.5) % Plt Count 32 L 31 L (140-440) X 10*3/uL Plt Count Comment A MPV 9.4 L (9.5-12.2) fL Metamyelocytes % 1 H (0-0) % Myelocytes % 3 H (0-0) % Lymphocytes # (Manual) 0.10 L 0.22 L (0.90-5.00) X 10*3/uL Metamyelocytes # (Man) 0.05 H (0) k/uL Potassium 3.3 L (3.5-5.1) mmol/L Chloride 113 H (98-107) mmol/L Carbon Dioxide 16 L (22-30) mmol/L BUN 5 L (7-17) mg/dL Creatinine 1.25 H (0.52-1.04) mg/dL Glucose 111 H (74-99) mg/dL Calcium 6.8 L (8.4-10.2) mg/dL 05/09/20 Range/Units 11:31 RBC (4.10-5.20) X 10*6/uL Hgb (12.0-15.0) g/dL Hct (37.2-46.3) % MCV (80.0-97.0) fL MCH (27.0-32.0) pg RDW (11.5-14.5) % Plt Count (140-440) X 10*3/uL Plt Count Comment MPV (9.5-12.2) fL Metamyelocytes % (0-0) % Myelocytes % (0-0) % Lymphocytes # (Manual) (0.90-5.00) X 10*3/uL Metamyelocytes # (Man) (0) k/uL Potassium 3.4 L (3.5-5.1) mmol/L Chloride (98-107) mmol/L Carbon Dioxide (22-30) mmol/L BUN (7-17) mg/dL Creatinine (0.52-1.04) mg/dL Glucose (74-99) mg/dL Calcium (8.4-10.2) mg/dL Microbiology - Last 24 Hours (Table) 05/05/20 15:30 Blood Culture - Preliminary Blood No Growth after 72 hours 05/05/20 13:09 Blood Culture - Preliminary Blood No Growth after 72 hours
[2020-05-09] MEDS ORDERED: POTASSIUM CHLORIDE ER 20 MEQ TAB.ER PO STA (13:35)
--- NOTE | 2020-05-10 07:17 | P.DS ---
Providers Date of admission: 05/04/20 15:41 Attending physician: Cheng Costa MD Consults: 05/04/20 15:41 Consult Physician Urgent Consulting Provider: Adelina Ramirez Consult Reason/Comments: Dysphagia Do you want consulting provider notified?: Yes 05/05/20 10:19 Consult Physician Urgent Consulting Provider: Virgilio Gutiérrez Consult Reason/Comments: pancytopenia ,NHL Do you want consulting provider notified?: Yes 05/06/20 13:07 Consult Physician Urgent Consulting Provider: Andrae Kirby Consult Reason/Comments: dysphagia Do you want consulting provider notified?: Yes [facility] [place] [facility]: Diagnoses: Dysphagia associated with epigastric pain radiating to the throat/odynophagia. EGD: Hiatal hernia, gastritis and esophagitis, status post dilatation. Patient tolerated diet Stage IV B-cell non-Hodgkin lymphoma involving multiple areas including the left axilla, mediastinum, left breast and multiple retroperitoneal areas Pancytopenia mostly is related to her chemotherapy, improved Chronic kidney disease, stage IV Moderate calories protein mild nutrition History of hepatitis C Mild cardiomyopathy with ejection fraction 45% Benign ovarian fibroma Paroxysmal atrial fibrillation, not on anticoagulation due to thrombocytopenia Hypertension Hyperlipidemia Chronic low back pain and cervical pain History of migraine Cachexia Hospital course: This is a pleasant 64-year-old patient of Dr. Weller. She has a past medical history high-grade B-cell non-Hodgkin's lymphoma, Status post chemotherapy and she follows up with Dr. Gutiérrez. benign ovarian fibroma.PET scan showed areas of multiple uptake including left axilla, mediastinum, left breast, multiple areas in the retro-peritoneal.hepatitis C . Mild cardiomyopathy with EF of 45% with negative cardiac cath. Status post chemotherapy, Atrial fibrillation, hyperlipidemia, hypertension chronic low back pain and cervical pain where she follows up with Dr. Cummins, migraine, chronic kidney disease stage IV. She is a patient of Dr. Young and follow-up with Dr. Chau and Dr. West. Her pain management is Dr. Cummins Patient presents because of swallowing difficulty and decrease swallowing. Pa tient cannot eat she feels that food gets stuck in her throat and also she could not drink which is associated with vomiting. Sometimes she'll wake up in the middle of night choking. Associated with pain in the abdomen. Patient also had significant epigastric pain and tenderness Surgery and ENT team were consulted. And came prefer to see the patient in the office and patient agrees to follow up for with Dr. Kirby in 1 week. Surgery team evaluated the patient and patient underwent EGD on 05/07 by surgery team found hiatal hernia gastritis, esophagitis and retained food in the oropharynx, esophagus and stomach status post dilatation followed by advancing diet which is well-tolerated by the patient for both liquid and solid food. Patient today patient most of her regular diet without choking or swallowing difficulty. Patient also is receiving some antibiotic with Levaquin and acyclovir by hematology team as well as filgastrim for improving pancytopenia On the day of discharge patient was stable with no chest pain or dyspnea or abdominal distention. Her epigastric pain was minimal Patient was cleared for discharge by all consultants including surgery and hematology team. Problems and management plan were discussed with the patient and he verbalized understanding and acceptance Patient was found stable and can be discharged home however he needs follow-up as an outpatient. Patient was instructed to follow up with PCP Dr. Young within one week and patient agrees. Patient also was instructed to follow up with ecology professor Yusra, surgeon Dr. Ramirez N1 to 2 weeks and she agrees. Also she agrees to call and make an appointment with the ENT specialist Dr. Cruz in one week as instructed Physical exam Gen: patient is a AAOx3, no distress. Thin built CVS: S1-S2, RRR, no murmur Lungs: B/L CTA, no wheezing Abdomen: soft, no distention, no tenderness, positive bowel sounds Extremity: no leg edema or induration Time spent more than 35 minutes Plan - Discharge Summary Discharge Rx Participant: Yes New Discharge Prescriptions: New Sucralfate [Carafate] 1 gm PO AC-TID 14 Days tab Carbamide Peroxide [Debrox Otic] 5 drops RIGHT EAR BID #0 ml Hyoscyamine Elixir [Levsin 0.125MG/ML Drops] 10 ml PO TID 5 Days ml polyethylene glycoL 3350 [Miralax] 17 gm PO HS 30 Days powd.pack [id number]-Ihl-Djmv 278-164-250 mg [Neutra-Phos Packet] 1 each PO TID 5 Days packet Omeprazole [PriLOSEC] 20 mg PO AC-BID #60 cap Lidocaine Viscous 2% [Xylocaine Viscous] 10 ml PO TID 14 Days ml Continue Sertraline [Zoloft] 100 mg PO DAILY Metoprolol Tartrate [Lopressor] 25 mg PO BID clonazePAM [KlonoPIN] 0.5 mg PO BID PRN PRN Reason: Anxiety Ondansetron HCl [Zofran] 4 mg PO Q4H PRN PRN Reason: nausea Amitriptyline HCl [Elavil] 25 mg PO HS Sertraline HCl [Zoloft] 50 mg PO DAILY oxyCODONE-APAP 10-325MG [Percocet 10-325 mg] 1 tab PO QID PRN PRN Reason: Pain oxyCODONE ER [OxyCONTIN] 20 mg PO Q12HR PRN PRN Reason: Pain Cyclobenzaprine [Flexeril] 5 mg PO TID PRN PRN Reason: Muscle Spasm Fluticasone Propionate [Flonase Allergy Relief] 1 spray EA NOSTRIL DAILY PRN PRN Reason: allergies Ergocalciferol [Vitamin D2 (1250 Mcg = 19962 Iu)] 1,250 mcg PO Q7D Sodium Bicarbonate Tab 1,300 mg PO TID lisinopriL [Zestril] 2.5 mg PO DAILY Sennosides/Docusate Sodium [Senna Plus 8.6-50 mg Softgel] 1 - 2 cap PO BID Calcium Carbonate [Calcium] 600 mg PO DAILY Calcitriol [Rocaltrol] 0.25 mcg PO Q7D Phospha 250 1 tab PO TID Surinder Solution 5 ml PO QID #10 Discontinued Levofloxacin [Levaquin] 500 mg PO DAILY Discharge Medication List Sertraline [Zoloft] 100 mg PO DAILY 06/05/14 [History] Metoprolol Tartrate [Lopressor] 25 mg PO BID 10/08/15 [History] clonazePAM [KlonoPIN] 0.5 mg PO BID PRN 10/25/18 [History] Ondansetron HCl [Zofran] 4 mg PO Q4H PRN 12/15/18 [History] Amitriptyline HCl [Elavil] 25 mg PO HS 01/24/19 [History] Sertraline HCl [Zoloft] 50 mg PO DAILY 01/24/19 [History] oxyCODONE-APAP 10-325MG [Percocet 10-325 mg] 1 tab PO QID PRN 03/14/19 [History] oxyCODONE ER [OxyCONTIN] 20 mg PO Q12HR PRN 05/16/19 [History] Cyclobenzaprine [Flexeril] 5 mg PO TID PRN 01/11/20 [History] Fluticasone Propionate [Flonase Allergy Relief] 1 spray EA NOSTRIL DAILY PRN 01/11/20 [History] Calcitriol [Rocaltrol] 0.25 mcg PO Q7D 05/04/20 [History] Calcium Carbonate [Calcium] 600 mg PO DAILY 05/04/20 [History] Ergocalciferol [Vitamin D2 (1250 Mcg = 49411 Iu)] 1,250 mcg PO Q7D 05/04/20 [History] Phospha 250 1 tab PO TID 05/04/20 [History] Sennosides/Docusate Sodium [Senna Plus 8.6-50 mg Softgel] 1 - 2 cap PO BID 05/04/20 [History] Sodium Bicarbonate Tab 1,300 mg PO TID 05/04/20 [History] lisinopriL [Zestril] 2.5 mg PO DAILY 05/04/20 [History] Carbamide Peroxide [Debrox Otic] 5 drops RIGHT EAR BID #0 ml 05/09/20 [Rx] Hyoscyamine Elixir [Levsin 0.125MG/ML Drops] 10 ml PO TID 5 Days ml 05/09/20 [Rx] Surinder Solution 5 ml PO QID #10 05/09/20 [Rx] Lidocaine Viscous 2% [Xylocaine Viscous] 10 ml PO TID 14 Days ml 05/09/20 [Rx] Omeprazole [PriLOSEC] 20 mg PO AC-BID #60 cap 05/09/20 [Rx] [id number]-Drc-[id number] 278-164-250 mg [Neutra-Phos Packet] 1 each PO TID 5 Days packet 05/09/20 [Rx] Sucralfate [Carafate] 1 gm PO AC-TID 14 Days tab 05/09/20 [Rx] polyethylene glycoL 3350 [Miralax] 17 gm PO HS 30 Days powd.pack 05/09/20 [Rx] Follow up Appointment(s)/Referral(s): Anju Young III, MD [Primary Care Provider] - 05/10/20 7:00 pm (Please call and make reschedule if this does not fit the office could not fit you in thursday or thursday.) Yusra Gupta, LEV [Nurse Practitioner] - 05/14/20 3:45 pm () Adelina Ramirez MD [STAFF PHYSICIAN] - 05/22/20 Andrae Kirby MD [STAFF PHYSICIAN] - 1 Week Patient Instructions/Handouts: Sucralfate (By mouth), Hyoscyamine (By mouth), Omeprazole (By mouth), Polyethylene Glycol 3350 (By mouth), Phosphate Supplement (By mouth), Esophageal Stricture (DC) Activity/Diet/Wound Care/Special Instructions: activity limited until seen by Doctor diet as tolerated Discharge Disposition: HOME SELF-CARE
== END 2020-05-09 16:09 | disposition home or self-care (01) | DRG 391 ==
LOC: EC 11:52 → 5NMEDONC 15:41
PROVIDERS: ADMIT Internal Medicine; ATTEND Internal Medicine
PROC: 0D748ZZ Dilation of Esophagogastric Junction, Via Natural or Artificial Opening Endoscopic (ICD-10-PCS; principal; 2020-05-07 07:30)
DX: K21.00 Gastro-esophageal reflux disease with esophagitis, without bleeding (principal); D61.810 Antineoplastic chemotherapy induced pancytopenia; C83.36 Diffuse large B-cell lymphoma, intrapelvic lymph nodes; I42.9 Cardiomyopathy, unspecified; N17.9 Acute kidney failure, unspecified; N18.4 Chronic kidney disease, stage 4 (severe); E44.0 Moderate protein-calorie malnutrition; Z68.1 Body mass index [BMI] 19.9 or less, adult; K44.9 Diaphragmatic hernia without obstruction or gangrene; B19.20 Unspecified viral hepatitis C without hepatic coma; D27.9 Benign neoplasm of unspecified ovary; E78.5 Hyperlipidemia, unspecified; E83.39 Other disorders of phosphorus metabolism; E83.51 Hypocalcemia; E87.6 Hypokalemia; F17.210 Nicotine dependence, cigarettes, uncomplicated; F32.9 Major depressive disorder, single episode, unspecified; G89.29 Other chronic pain; I12.9 Hypertensive chronic kidney disease with stage 1 through stage 4 chronic kidney disease, or unspecified chronic kidney disease; I44.7 Left bundle-branch block, unspecified; I48.0 Paroxysmal atrial fibrillation; J03.90 Acute tonsillitis, unspecified; Z20.822 Contact with and (suspected) exposure to COVID-19; K29.50 Unspecified chronic gastritis without bleeding; K59.00 Constipation, unspecified; R13.10 Dysphagia, unspecified; T45.1X5A Adverse effect of antineoplastic and immunosuppressive drugs, initial encounter; Z79.899 Other long term (current) drug therapy; Z82.0 Family history of epilepsy and other diseases of the nervous system; Z82.49 Family history of ischemic heart disease and other diseases of the circulatory system; Z82.5 Family history of asthma and other chronic lower respiratory diseases; R00.0 Tachycardia, unspecified; G43.909 Migraine, unspecified, not intractable, without status migrainosus; R07.9 Chest pain, unspecified; Z90.79 Acquired absence of other genital organ(s); Z90.721 Acquired absence of ovaries, unilateral; Z87.01 Personal history of pneumonia (recurrent); H40.9 Unspecified glaucoma; I83.90 Asymptomatic varicose veins of unspecified lower extremity
CPT/HCPCS: 36415; 43249; 70490; 71046; 71250; 74176; 74230; 78582; 80048; 80053; 81001; 82330; 82607; 82728; 82746; 83540; 83550; 83615; 83735; 84132; 84484; 84550; 85025; 85610; 85730; 87040; 87635; 93005; 94760; 96360; 99285

== ENCOUNTER → 2020-06-01 | Outpatient (CLI) | payer MEDICARE, OTHER ==
[2020-06-01 13:48] LABS: Appearance,Urine Clear (Clear); Bilirubin,Urine Negative (Negative); Blood,Urine Negative (Negative); Color,Urine Yellow; Glucose,Urine (UA) 3+ (Negative); Ketones,Urine Negative (Negative); Leukocyte Esterase,Urine Negative (Negative); Nitrite,Urine Negative (Negative); Protein,Urine 2+ (Negative); RBC,Urine 1 /hpf (0-5); Specific Gravity,Urine 1.017 (1.001-1.035); Squamous Epithelial Cell,Urine 1 /hpf (0-4); Urobilinogen,Urine <2.0 mg/dL (<2.0); WBC,Urine 2 /hpf (0-5)
[2020-06-01 13:58] LABS: Protein/Creatinine Ratio,Urine 1.845
[2020-06-02 00:04] LABS: Basophils # (M) 0.07 X 10*3/uL (0.00-0.10); Eosinophils # (M) 0.16 X 10*3/uL (0.04-0.35); HCT 25.6 % (37.2-46.3); HGB 8.5 g/dL (12.0-15.0); MCH 37.6 pg (27.0-32.0); MCHC 33.2 g/dL (32.0-37.0); MCV 113.3 fL (80.0-97.0); Macrocytosis (M) 2+; Mean Platelet Volume 11.5 fL (9.5-12.2); Metamyelocytes % 2 % (0-0); Monocytes # (M) 0.14 X 10*3/uL (0.20-1.00); Myelocytes % 2 % (0-0); Neutrophils # (M) 0.91 X 10*3/uL (2.00-8.90); Neutrophils % (M) 63 %; Platelet Count 59 X 10*3/uL (140-440); RBC 2.26 X 10*6/uL (4.10-5.20); RDW 17.2 % (11.5-14.5); WBC 1.44 X 10*3/uL (4.50-10.00)
[2020-06-02 01:26] LABS: % Iron Saturation 23.18 (12.00-45.00); African American GFR (CKD) 29.4 (60.0-200.0); Albumin 4.4 g/dL (3.80-4.90); BUN/Creat Ratio 6.5 Ratio (12.00-20.00); Calcium 8.6 mg/dL (8.7-10.3); Ferritin 339.4 ng/mL (10.0-291.0); Magnesium 1.9 mg/dL (1.5-2.4); Non-African American GFR(CKD) 25.4 (60.0-200.0); Phosphorus 2.8 mg/dL (2.4-5.1); Potassium 3.6 mmol/L (3.5-5.5); Uric Acid 2.3 mg/dL (2.9-7.7)
== END | disposition home or self-care (01) ==
LOC: LABWHC1 12:45
PROVIDERS: ATTEND Nurse Practitioner Family
DX: N17.9 Acute kidney failure, unspecified (principal); E55.9 Vitamin D deficiency, unspecified; N25.81 Secondary hyperparathyroidism of renal origin; M10.9 Gout, unspecified; N39.0 Urinary tract infection, site not specified; D64.9 Anemia, unspecified; R80.9 Proteinuria, unspecified
CPT/HCPCS: 36415; 80048; 81001; 82040; 82306; 82570; 82728; 83540; 83550; 83735; 83970; 84100; 84156; 84550; 85025

== ENCOUNTER 2020-07-30 11:19 | Emergency (ER) | payer MEDICARE, OTHER ==
[2020-07-30 11:43] VITALS: TEMP 98
[2020-07-30] MEDS ORDERED: PANTOPRAZOLE 40 MG/10 ML VIAL IVP STA (12:03)
[2020-07-30] MEDS ORDERED: SODIUM CHLORIDE 0.9% 1,000 ML IV STA (12:03)
[2020-07-30] MEDS ORDERED: MAG HYDROX/AL HYDROX/SIMETH 30 ML, HYOSCYAMINE ELIXIR 10 ML, LIDOCAINE VISCOUS 2% 10 ML PO STA ×3 (12:03)
--- NOTE | 2020-07-30 12:33 | ED ---
General Adult HPI - General Chief complaint: ENT Stated complaint: abd pain Time Seen by Provider: 07/30/20 11:48 Source: patient, family, RN notes reviewed Mode of arrival: wheelchair Limitations: no limitations - History of Present Illness Initial comments: Patient is a 65-year-old female presents to the emergency department complaining of esophageal burning and discomfort. She notes that she does have stage IV non-Hodgkin's lymphoma and recently underwent EGD with an esophageal dilation. This procedure was done approximately [address] Piña. and patient both report that they have not followed up with Dr. Piña yet as it did not know that they were supposed to. Patient is still on a liquid diet. She notes that the pain is approximately a 9-10 out of 10 constant. She recently had an MRI done as an outpatient but has not received results yet. She notes that the MRI was done first and dizziness. Patient was quiet but in no apparent distress or pain while sitting up in bed during the exam interview. She also reported that she has a decent sized hiatal hernia. She denied any chest pain headache nausea vomiting diarrhea constipation fever fatigue chills. - Related Data Home Medications Medication Instructions Recorded Confirmed Sertraline [Zoloft] 200 mg PO DAILY 06/05/14 07/30/20 Metoprolol Tartrate [Lopressor] 25 mg PO BID 10/08/15 07/30/20 clonazePAM [KlonoPIN] 0.5 mg PO BID PRN 10/25/18 07/30/20 Ondansetron HCl [Zofran] 4 mg PO Q4H PRN 12/15/18 07/30/20 Amitriptyline HCl [Elavil] 25 mg PO HS 01/24/19 07/30/20 oxyCODONE ER [OxyCONTIN] 20 mg PO Q12HR 05/16/19 07/30/20 Fluticasone Propionate [Flonase 1 spray EA NOSTRIL DAILY PRN 01/11/20 07/30/20 Allergy Relief] Calcium Carbonate [Calcium] 600 mg PO DAILY 05/04/20 07/30/20 Ergocalciferol [Vitamin D2 (1250 1,250 mcg PO TU 05/04/20 07/30/20 Mcg = 16221 Iu)] Sennosides/Docusate Sodium [Senna 1 - 2 cap PO BID 05/04/20 07/30/20 Plus 8.6-50 mg Softgel] Sodium Bicarbonate Tab 1,300 mg PO TID 05/04/20 07/30/20 calcitrioL [Rocaltrol] 0.25 mcg PO TUTH 05/04/20 07/30/20 lisinopriL [Zestril] 2.5 mg PO DAILY 05/04/20 07/30/20 Dronabinol [Marinol] 2.5 mg PO BID 07/30/20 07/30/20 Meclizine [Antivert] 25 mg PO QID PRN 07/30/20 07/30/20 Allergies Allergy/AdvReac Type Severity Reaction Status Date / Time NSAIDS (Non-Steroidal AdvReac Swelling, Verified 07/30/20 11:42 Anti-Inflamma "shuts kidneys down" Review of Systems ROS Statement: Those systems with pertinent positive or pertinent negative responses have been documented in the HPI. ROS Other: All systems not noted in ROS Statement are negative. Past Medical History Past Medical History: Atrial Fibrillation, Cancer, Chest Pain / Angina, Eye Disorder, Hyperlipidemia, Hypertension, Liver Disease, Musculoskeletal Disorder, Pneumonia, Renal Disease Additional Past Medical History / Comment(s): 2006 NHL (lymphoma) - no tx need ed, then returned 10/2018, has been receiving chemo at [facility] every 3 weeks since 2019- Last chemo 04/18/20, Hepatitis C-tx 2019 & told cured, DDD, Chronic LBP/cervical pain (Dr. Cummins for pain), migraines, decreased renal function w/ steroid/nsaid use. Hx glaucoma. Varicose veins. Gallstones. power port in Rt subclavian. History of Any Multi-Drug Resistant Organisms: None Reported Past Surgical History: Cholecystectomy, Heart Catheterization, Orthopedic Surgery Additional Past Surgical History / Comment(s): 2006 R groin lump biopsy, 10/28/18 Exploratory laparotomy w/ tubo-ovarian cancer/R salpingo-oophorectomy/removal pelvic lymph nodes, 12/03/18 Port a cath, 12/20/18 cardiac cath-normal/CHIQUIS, 2016 cardiac cath, vaginal polypectomy, R shoulder arthroscopy/rotator cuff repair x2, R knee arthroscopy, ORIF R ankle with plates/screws. Right chest infusaport placed. Past Anesthesia/Blood Transfusion Reactions: No Reported Reaction Past Psychological History: Depression Smoking Status: Former smoker Past Alcohol Use History: None Reported Past Drug Use History: None Reported - Past Family History Mother Family Medical History: COPD, Coronary Artery Disease (CAD), Myocardial Infarction (VA), Seizure Disorder Additional Family Medical History / Comment(s): Mother had a VA at the age of 76yrs. She from fall/facial injury and aspirated blood. Father Family Medical History: Coronary Artery Disease (CAD), Seizure Disorder Additional Family Medical History / Comment(s): Father had a seizure while driving resulting in a MVA in which he . General Exam Limitations: no limitations General appearance: alert, in no apparent distress, other (Underweight) Head exam: Present: atraumatic, normocephalic, normal inspection Eye exam: Present: normal appearance, PERRL, EOMI. Absent: scleral icterus, conjunctival injection, periorbital swelling Neck exam: Present: normal inspection Respiratory exam: Present: normal lung sounds bilaterally. Absent: respiratory distress, wheezes, rales, rhonchi, stridor Cardiovascular Exam: Present: regular rate, normal rhythm, normal heart sounds. Absent: systolic murmur, diastolic murmur, rubs, gallop, clicks GI/Abdominal exam: Present: soft, normal bowel sounds. Absent: distended, tenderness, guarding, rebound, rigid Extremities exam: Present: normal inspection, full ROM, normal capillary refill. Absent: tenderness, pedal edema, joint swelling, calf tenderness Neurological exam: Present: alert, oriented X3, CN II-XII intact Psychiatric exam: Present: normal affect, normal mood Skin exam: Present: warm, dry, intact, normal color. Absent: rash Course Vital Signs 07/30/20 07/30/20 07/30/20 11:36 13:44 16:27 Temperature 98.0 F Pulse Rate 95 91 106 H Respiratory 18 18 20 Rate Blood Pressure 111/56 133/70 145/82 O2 Sat by Pulse 100 100 99 Oximetry EKG Findings - EKG Comments: EKG Findings:: Ventricular rate 101 bpm, RI interval 134 ms, QRS duration 130 ms, QT/QTc 420/544 ms, PRT axes 84/29/-12 are. Sinus tachycardia, left bundle branch block, abnormal ECG. Medical Decision Making - Medical Decision Making 65-year-old female complaining of heartburn symptoms involving burning, chest discomfort after EGD and dilation. Labs, chest x-ray, KUB, GI cocktail, Protonix, 1 L normal saline ordered. Troponin, lactic acid, EKG ordered. Labs: White blood cells 0.9 lactic acid 0.5, urine shows dehydration with possible UTI. 1 g of Rocephin ordered Case discussed with Dr. Bustamante, wants to consult oncology prior to admitting and/or discharging home. Dr. Gutiérrez was consult that and said that patient can follow up outpatient for MRI findings and lumbar puncture. - Lab Data Result diagrams: 07/30/20 12:36 07/30/20 12:36 Lab Results 07/30/20 07/30/20 07/30/20 Range/Units 12:36 12:36 12:36 WBC 0.9 L* (3.8-10.6) k/uL RBC 2.72 L (3.80-5.40) m/uL Hgb 10.0 L (11.4-16.0) gm/dL Hct 28.2 L (34.0-46.0) % MCV 103.8 H (80.0-100.0) fL MCH 36.8 H (25.0-35.0) pg MCHC 35.5 (31.0-37.0) g/dL RDW 13.8 (11.5-15.5) % Plt Count 58 L (150-450) k/uL MPV 8.2 Neutrophils # [employer] Differential Comment Manual Slide Review Performed Poikilocytosis Slight Macrocytosis Slight PT (9.0-12.0) sec INR (<1.2) APTT (22.0-30.0) sec Sodium 134 L (137-145) mmol/L Potassium 3.7 (3.5-5.1) mmol/L Chloride 108 H (98-107) mmol/L Carbon Dioxide 16 L (22-30) mmol/L Anion Gap 10 mmol/L BUN 22 H (7-17) mg/dL Creatinine 1.97 H (0.52-1.04) mg/dL Est GFR (CKD-EPI)AfAm 30 (>60 ml/min/1.73 sqM) Est GFR (CKD-EPI)NonAf 26 (>60 ml/min/1.73 sqM) Glucose 124 H (74-99) mg/dL Plasma Lactic Acid Jayce (0.7-2.0) mmol/L Calcium 8.3 L (8.4-10.2) mg/dL Total Bilirubin 0.6 (0.2-1.3) mg/dL AST 18 (14-36) U/L ALT 10 (4-34) U/L Alkaline Phosphatase 77 (38-126) U/L Troponin I (0.000-0.034) ng/mL Total Protein 7.3 (6.3-8.2) g/dL Albumin 4.3 (3.5-5.0) g/dL Amylase 37 (30-110) U/L Lipase 18 L (23-300) U/L Urine Color Light Yellow Urine Appearance Clear (Clear) Urine pH 6.5 (5.0-8.0) Ur Specific [place] 1.014 (1.001-1.035) Urine Protein 2+ H (Negative) Urine Glucose (UA) 3+ H (Negative) Urine Ketones 1+ H (Negative) Urine Blood Small H (Negative) Urine Nitrite Negative (Negative) Urine Bilirubin Negative (Negative) Urine Urobilinogen <2.0 (<2.0) mg/dL Ur Leukocyte Esterase Negative (Negative) Urine RBC <1 (0-5) /hpf Urine WBC 7 H (0-5) /hpf Ur Squamous Epith Cells 4 (0-4) /hpf Urine Bacteria Rare H (None) /hpf Hyaline Casts 1 (0-2) /lpf Urine Mucus Rare H (None) /hpf 07/30/20 07/30/20 07/30/20 Range/Units 14:37 14:37 14:37 WBC (3.8-10.6) k/uL RBC (3.80-5.40) m/uL Hgb (11.4-16.0) gm/dL Hct (34.0-46.0) % MCV (80.0-100.0) fL MCH (25.0-35.0) pg MCHC (31.0-37.0) g/dL RDW (11.5-15.5) % Plt Count (150-450) k/uL MPV Neutrophils # Differential Comment Manual Slide Review Poikilocytosis Macrocytosis PT 9.8 (9.0-12.0) sec INR 0.9 (<1.2) APTT 27.9 (22.0-30.0) sec Sodium (137-145) mmol/L Potassium (3.5-5.1) mmol/L Chloride (98-107) mmol/L Carbon Dioxide (22-30) mmol/L Anion Gap mmol/L BUN (7-17) mg/dL Creatinine (0.52-1.04) mg/dL Est GFR (CKD-EPI)AfAm (>60 ml/min/1.73 sqM) Est GFR (CKD-EPI)NonAf (>60 ml/min/1.73 sqM) Glucose (74-99) mg/dL Plasma Lactic Acid Jayce 0.5 L (0.7-2.0) mmol/L Calcium (8.4-10.2) mg/dL Total Bilirubin (0.2-1.3) mg/dL AST (14-36) U/L ALT (4-34) U/L Alkaline Phosphatase (38-126) U/L Troponin I <0.012 (0.000-0.034) ng/mL Total Protein (6.3-8.2) g/dL Albumin (3.5-5.0) g/dL Amylase (30-110) U/L Lipase (23-300) U/L Urine Color Urine Appearance (Clear) Urine pH (5.0-8.0) Ur Specific [place] (1.001-1.035) Urine Protein (Negative) Urine Glucose (UA) (Negative) Urine Ketones (Negative) Urine Blood (Negative) Urine Nitrite (Negative) Urine Bilirubin (Negative) Urine Urobilinogen (<2.0) mg/dL Ur Leukocyte Esterase (Negative) Urine RBC (0-5) /hpf Urine WBC (0-5) /hpf Ur Squamous Epith Cells (0-4) /hpf Urine Bacteria (None) /hpf Hyaline Casts (0-2) /lpf Urine Mucus (None) /hpf 07/30/20 15:32 Ventricular rate 101 bpm, RI interval 134 ms, QRS duration 130 ms, QT/QTc 420/544 ms, PRT axes 84/29/-12 are Sinus tachycardia, left bundle branch block, abnormal ECG. - Radiology Data Radiology results: report reviewed, image reviewed KUB: Surgical clip is present in the right upper quadrant there overlying artifact. There is no evidence of pneumoperitoneum or bowel obstruction. Spinal curvature is noted. Compression deformities noted at T12 L3. There is retained fecal debris present throughout the distribution of the colon. Chest x-ray: No acute process. Disposition Clinical Impression: Dysphagia, Underweight, Leukopenia Disposition: HOME SELF-CARE Condition: Stable Instructions (If sedation given, give patient instructions): Gastroesophageal Reflux Disease (ED) Additional Instructions: Please return to the Emergency Department if symptoms worsen or any other concerns. Follow-up with primary care and oncologist in the next 1-[address] Gutiérrez to 7 appointment to go over MRI results. Continue to increase oral fluid intake to stay hydrated and eat food as tolerated. Is patient prescribed a controlled substance at d/c from ED?: No Referrals: Anju Young III, MD [Primary Care Provider] - 1-2 days Time of Disposition: 17:25
[2020-07-30 12:52] LABS: HCT 28.2 % (34.0-46.0); MCH 36.8 pg (25.0-35.0); MCHC 35.5 g/dL (31.0-37.0); MCV 103.8 fL (80.0-100.0); Macrocytosis Slight; Mean Platelet Volume 8.2; Platelet Count 58 k/uL (150-450); Poikilocytosis Slight; RBC 2.72 m/uL (3.80-5.40); RDW 13.8 % (11.5-15.5)
[2020-07-30 13:05] LABS: Albumin 4.3 g/dL (3.5-5.0); Calcium 8.3 mg/dL (8.4-10.2); Potassium 3.7 mmol/L (3.5-5.1); Total Bilirubin 0.6 mg/dL (0.2-1.3); Total Protein 7.3 g/dL (6.3-8.2)
[2020-07-30 13:19] LABS: WBC 0.9 k/uL (3.8-10.6)
--- NOTE | 2020-07-30 13:32 | XR ---
EXAMINATION TYPE: XR chest 1V portable DATE OF EXAM: 07/30/2020 COMPARISON: Prior chest x-ray 05/04/2020 HISTORY: Abdominal pain, chest pain TECHNIQUE: Single frontal view of the chest is obtained. FINDINGS: Nodular density superimposed over the left heart seen on prior exam and represents calcifi ed granuloma. Port-A-Cath is present in the right subclavian distribution, distal tip is overlying vaca perior vena cava. No evident pneumothorax or pleural effusion. Cardiac mediastinal silhouette is stab le. Compression deformity is noted at the superior endplate of the frontal exam at T12. Aorta is dens e. IMPRESSION: No acute process.
--- NOTE | 2020-07-30 13:34 | XR ---
KUB HISTORY: Abdominal pain Frontal KUB submitted on 2 images, comparison to CT 05/04/2020 Surgical clip is present in the right upper quadrant, there are overlying artifacts. There is no evid ent pneumoperitoneum or bowel obstruction. Spinal curvature is noted, compression deformity noted at T12, L3. There is retained fecal debris present throughout the distribution of the colon. IMPRESSION: Correlate for fecal stasis. Chronic compression deformities in the thoracic and lumbar sp ine. Postop changes.
[2020-07-30 14:56] LABS: INR 0.9 (<1.2); Partial Thromboplastin Time 27.9 sec (22.0-30.0); Prothrombin Time 9.8 sec (9.0-12.0)
[2020-07-30 15:02] LABS: Appearance,Urine Clear (Clear); Bacteria,Urine Rare /hpf; Bilirubin,Urine Negative (Negative); Blood,Urine Small (Negative); Color,Urine Light Yellow; Glucose,Urine (UA) 3+ (Negative); Hyaline Casts,Urine 1 /lpf (0-2); Ketones,Urine 1+ (Negative); Leukocyte Esterase,Urine Negative (Negative); Mucus,Urine Rare /hpf; Nitrite,Urine Negative (Negative); PH, Urine 6.5 (5.0-8.0); Protein,Urine 2+ (Negative); RBC,Urine <1 /hpf (0-5); Specific Gravity,Urine 1.014 (1.001-1.035); Squamous Epithelial Cell,Urine 4 /hpf (0-4); Urobilinogen,Urine <2.0 mg/dL (<2.0); WBC,Urine 7 /hpf (0-5)
[2020-07-30] MEDS ORDERED: cefTRIAXone IN SWFI 1,000 MG/10 ML SYRINGE IVP STA (15:31)
[2020-07-30] MEDS ORDERED: HYDROmorphone 1 MG/ML 1 ML SYRINGE IVP STA (16:15)
[2020-07-30 18:09] VITALS: BP 138/88; PULSE 95; RESP 18
== END 2020-07-30 18:09 | disposition home or self-care (01) ==
LOC: EC 11:19
DX: R13.10 Dysphagia, unspecified (principal); R63.6 Underweight; D72.819 Decreased white blood cell count, unspecified; R10.9 Unspecified abdominal pain; I10 Essential (primary) hypertension; E78.5 Hyperlipidemia, unspecified; Z87.891 Personal history of nicotine dependence; Z88.6 Allergy status to analgesic agent; Z90.49 Acquired absence of other specified parts of digestive tract
CPT/HCPCS: 96361 ×2; 96374 ×2; 96375 ×2; 99284 ×2; 36415; 93005; 80053; 82150; 83605; 83690; 84484; 85025; 85610; 85730; 81001; 71045; 74018; J0696; J1170; C9113